=== PATIENT | male | born 1955 | race Caucasian/White ===

== ENCOUNTER 2022-10-28 15:21 | Observation (INO) | payer MEDICARE, SELFPAY ==
[2022-10-28] VITALS (23 sets, daily range): BP systolic 101–146; BP diastolic 62–90; PULSE 78–130; RESP 18–32; TEMP 36.8; O2SAT 94–98
--- NOTE | ~2022-10-28 | US_ITS ---
EXAMINATION: US renal BI DATE: 10/30/2022 17:29 INDICATION: KAITLIN TECHNIQUE: Multiple grayscale and Doppler ultrasound images of the kidneys were obtained. COMPARISON: None. FINDINGS: The right kidney measures 12.7 x 5.6 x 6.6 cm. The left kidney measures 12.5 x 6.0 x 7.2 cm. The kidn eys demonstrate normal parenchymal echogenicity. There is no hydronephrosis. The bladder is poorly vi sualized, but grossly normal. A left ureteral jet is present. IMPRESSION: Unremarkable renal sonogram findings. Reviewed, dictated and finalized at location K. T PRESSER
--- NOTE | ~2022-10-28 | XR_ITS ---
EXAMINATION: XR chest 2V DATE: 10/28/2022 16:10 INDICATION: Shortness of breath TECHNIQUE: Shortness of breath COMPARISON: 03/03/2018 FINDINGS: There is a mild diffuse interstitial pattern. There are minimal airspace opacities of the l kurt bases. No pleural effusion or pneumothorax. The cardiomediastinal silhouette is normal. There is severe thoracic spondylosis. IMPRESSION: 1. Mild pulmonary edema. 2. Minimal airspace opacities of the lung bases, consistent with atelectasis versus pneumonia. Reviewed, dictated and finalized at location A. EMIC ADVISING DIRECTOR IMPRESSION: 1. Mild pulmonary edema. 2. Minimal airspace opacities of the lung bases, consistent with atelectasis ve rsus pneumonia.
--- NOTE | 2022-10-28 15:23 | ECG_ITS ---
Measurements Intervals [place] Rate: 121 P: HI: 0 QRS: -54 QRSD: 82 T: 54 QT: 284 QTc: 404 Interpretive Statements ATRIAL FLUTTER/TACHYCARDIA WITH RAPID VENTRICULAR RESPONSE LEFT ANTERIOR FASCICULAR BLOCK [QRS AXIS <= -45, QR IN I, RS IN II] NONSPECIFIC T-WAVE ABNORMALITY NO PREVIOUS ECG AVAILABLE FOR COMPARISON Electronically Signed On 10-29-2022 16:16:25 ETCHER APPRENTICE PHOTOENGRAVING by Paulette Fletcher M.D.
[2022-10-28 15:49] LABS: Basophils Absolute Auto 0.1 K/mm3 (0.0-0.1); Basophils Percent Auto 0.6 % (0.2-1.2); Eosinophils Absolute Auto 0.2 K/mm3 (0-0.3); Eosinophils Percent Auto 1.6 % (0-4.4); Hematocrit 45.1 % (42.0-52.0); Hemoglobin 15.1 g/dL (14.0-18.0); Immature Granulocyte Absolute 0.05 K/mm3 (0.00-0.031); Immature Granulocyte Percent A 0.4 % (0-0.5); Lymphocytes Absolute Auto 1.93 K/mm3 (0.9-3.2); Lymphocytes Percent Auto 16.4 % (18.3-44.2); Mean Corpuscular HGB Conc 33.5 g/dl (32-36); Mean Corpuscular Hemoglobin 31.8 pg (26-34); Mean Corpuscular Volume 94.9 fl (80-100); Monocytes Percent Auto 8.2 % (2.6-8.5); Neutrophils Absolute Auto 8.6 K/mm3 (1.3-6.7); Neutrophils Percent Auto 72.8 % (45.5-73.1); Platelet Count Result 214 k/mm3 (150-375); Red Blood Count 4.75 M/mm3 (4.6-6.20); Red Cell Distribution Width 13.5 % (11.5-14.5); White Blood Count 11.8 K/mm3 (4.5-10.0)
[2022-10-28 16:03] LABS: Alanine Aminotransferase 30 U/L (6-50); Albumin Level 4.5 g/dL (3.5-5.1); Alkaline Phosphatase 64 U/L (38-126); Anion Gap 9 mmol/L (8-16); Aspartate Amino Transferase 28 U/L (17-59); Bilirubin,Total 1.1 mg/dL (0.2-1.3); Blood Urea Nitrogen 23 mg/dL (9-20); Carbon Dioxide 22 mmol/L (22-30); Chloride 100 mmol/L (98-107); Estimated CRCL calculation 108 ml/min; Estimated Glomerular Filt Rate > 60; Glucose 146 mg/dL (65-110); Lipase 108 U/L (23-300); Potassium 4.2 mmol/L (3.4-5.0); Sodium 131 mmol/L (137-145)
[2022-10-28 16:05] LABS: INR 1.2
[2022-10-28 16:06] LABS: Partial Thromboplastin Time 33.4 SECONDS (22.3-36.8)
[2022-10-28 16:13] LABS: Troponin I 0.013 ng/mL (0.000-0.034)
[2022-10-28 16:30] LABS: NT Pro B Type Natriuretic Pept 758 pg/mL (5-100)
--- NOTE | 2022-10-28 19:50 | ED.GENADULT ---
HPI - General Adult General Chief complaint: Shortness of Breath/Dyspnea Stated complaint: SOB,DIAPHORETIC, ?A FIB Time Seen by Provider: 10/28/22 19:35 History of Present Illness HPI narrative: This is a 66-year-old male history of AFib a flutter presenting ED chief complaint of not feeling well. Patient says he woke up this morning and felt more short of breath, w/ palpitations and slightly diaphoretic. He went about his day as normal but has not improved. The patient denies chest pain. He denies any symptoms in the days leading up to this event, No fever, chills, nausea vomiting or diarrhea. Has taken all his medications as directed. He denies lower extremity edema outside of his normal chronic swelling. Patient's academic success coordinator is Dr. Dunaway. Related Data Home Medications Medication Instructions Recorded Confirmed carvedilol 25 mg tablet mg 10/28/22 furosemide 20 mg tablet mg 10/28/22 lisinopril 10 mg tablet mg 10/28/22 metformin 500 mg tablet mg 10/28/22 pravastatin 20 mg tablet mg 10/28/22 rivaroxaban 20 mg tablet (Xarelto) mg 10/28/22 spironolactone 25 mg tablet mg 10/28/22 Allergies Allergy/AdvReac Type Severity Reaction Status Date / Time No Known Allergies Allergy Unknown Unverified 12/31/16 17:51 Review of Systems Review of Systems: CONSTITUTIONAL: Denies night sweats. EYES: No eye pain ENT: Denies rhinorrhea CARDIOVASCULAR: Denies palpitations RESPIRATORY: Denies hemoptysis GASTROINTESTINAL: Denies hematemesis GENITOURINARY: Denies hematuria. SKIN: Denies rash MUSCULOSKELETAL: Denies myalgia. NEUROLOGIC: Denies weakness. PSYCHIATRIC: Denies delusions [facility] Past Medical History Medical History (Updated 10/28/22 @ 23:10 by Richard Gonzales MD) Atrial fibrillation Body mass index (BMI) of 50-59.9 in adult (12/01/17) Chronic pain of both knees Diabetes Hypertension Family History Family History (Updated 10/21/17 @ 08:21 by DOCTOR UNKNOWN) Other Family history of arthritis Social History Social History Smoking status: Former smoker Alcohol intake: never Exam Narrative: APPEARANCE: patient appears older than his stated age Head: atraumatic. EYES: EOMI, NOSE: Atraumatic NECK: Trachea midline RESPIRATORY: Clear to auscultation, mildly increased respiratory rate CARDIOVASCULAR: tachycardic, irregular, dermatoliposclerosis of the LE ABDOMINAL: Non-distended obese, nontender MUSCULOSKELETAl: No obvious deformities NEURO: Alert. Moving 4/4 extremities SKIN:: Warm, dry. Normal color PSYCHIATRIC: Normal affect Course Vital Signs Vital signs: Vital Signs Temperature 98.2 F 10/28/22 15:38 Pulse Rate 121 H 10/28/22 15:38 Respiratory Rate 20 10/28/22 15:38 Blood Pressure 146/81 H 10/28/22 15:38 Pulse Oximetry 95 10/28/22 15:38 Oxygen Delivery Room Air 10/28/22 15:38 Temperature 98.2 F 10/28/22 15:38 Pulse Rate 125 H 10/28/22 22:25 Respiratory Rate 18 10/28/22 21:17 Blood Pressure 113/80 10/28/22 22:25 Pulse Oximetry 97 10/28/22 21:18 Oxygen Delivery Room Air 10/28/22 20:23 Medical Decision Making [facility] Narrative Medical decision making narrative: This 66-year-old male presents with palpitations, tachycardia, and shortness of breath. EKG interpretation: Rhythm atrial flutter, Rate 121, [place] -[normal], CO -NA, QRS [narrow], QTC [normal], T waves -[negative for concerning inversions], ST Segments - [Negative for concerning elevations] Final interpretations: atrial flutter laboratory studies were significant for a mildly elevated white blood cell count of 11.8 which is of unknown etiology/significance. Metabolic panel is within normal limits. Troponin was within acceptable limits. His BNP is slightly elevated at 758. Chest x-ray showed mild pulmonary edema and atelectasis versus pneumonia. Given the patients presentation I feel atelectasi
[2022-10-28] MEDS: dilTIAZem HCl INJ 25 MG/5 ML VIAL 15 MG IV PUSH ×2 (20:26→21:13)
[2022-10-28 21:23] LABS: Troponin I 0.022 ng/mL (0.000-0.034)
[2022-10-28 21:33] LABS: Influenza A QL RT-PCR Negative (Negative); Influenza B QL RT-PCR Negative (Negative); SARS-CoV-2 RNA PCR Negative
[2022-10-28] MEDS: dilTIAZem 100 MG/100 ML 100 MG/100 ML BAG IV CONT (22:25)
[2022-10-28 22:54] LABS: Magnesium 1.8 mg/dL (1.6-2.3)
[2022-10-28 23:55] LABS: Troponin I 0.023 ng/mL (0.000-0.034)
[2022-10-29] VITALS (40 sets, daily range): BP systolic 89–124; BP diastolic 49–88; PULSE 69–130; RESP 12–27; TEMP 36.2–37; O2SAT 95–100
--- NOTE | 2022-10-29 03:05 | ADMGEN ---
This patient, Joe Henriquez, was admitted to IMU Room 205-02. Patient/family oriented to hospital policies and general routines including ID bracelet, bed and alarms, visiting hours, pain management, procedures, bathroom and other care routines, personal items, smoking policy, room service/diet, and visiting hours. Information on how to activate the Rapid Response Team has been discussed. Patient/Family are encouraged to report perceived risks to care and to ask questions if they do not understand what they are told or what they should do.
--- NOTE | 2022-10-29 03:23 | PC.NURSE ---
Patient did not receive Coreg 25mg, give dose now, also give dose of Xaralto 20mg as patient did not receive home dose.
[2022-10-29] MEDS: RIVAROXABAN 20 MG TABLET PO ×2 (03:48→17:39)
[2022-10-29] MEDS: dilTIAZem 100 MG/100 ML 100 MG/100 ML BAG 15 MG IV CONT (03:48)
[2022-10-29] MEDS: carvediloL 25 MG TABLET PO ×3 (03:48→21:23)
--- NOTE | 2022-10-29 04:52 | PM.IMHP ---
H&P: HPI History of Present Illness Date/Time: 10/29/22 04:52 Chief Complaint: ?Did not feel good? Narrative: 66-year-old male with past medical history of nonischemic cardiomyopathy, morbid obesity, paroxysmal atrial fibrillation/flutter, type 2 diabetes mellitus and hyperlipidemia who presented to the ER with just not feeling well. The patient reported that his symptoms started around 03:00 on the 12th when he got up to go to the bathroom. He just knew something was wrong. He had developed a sudden onset of shortness of breath and sweating which was similar to when he is went into AFib before. He has required at least 2 other occurrences of for synchronized cardioversion in 2012 and 2016. He sees Dr. Dunaway as outpatient approximately every 6 months. He has morbid obesity and denies history of obstructive sleep apnea although I find this difficult to correlate given the patient is crowded posterior oropharynx. He he denies daytime sleepiness or somnolence. He denies having chest pain. He denies orthopnea or paroxysmal nocturnal dyspnea. He has chronic lower extremity swelling and does not think is swelling is changed from baseline but he does have 2+ pitting edema at the time of my evaluation. He denies any history of BPH or urinary symptoms. He denies any hematochezia or melena. He has been compliant with his home meds including his Coreg and Xarelto but did not receive his evening Coreg. When I had ER provider order the patient's evening Coreg the ER nurse did not administer the Coreg. After the patient received his Coreg after arriving to the IMU the patient's heart rate improved significantly and we were able to wean the patient's Cardizem from 15 mg down to 5 mg. The patient does not really know if he snores as he lives alone and does not have family around. He states he does not have a history of obstructive sleep apnea but I did find in the old computer system where the patient was mention to have sleep apnea. The patient was not using CPAP at the time of that hospitalization in 2016. Review of Systems Review of Systems: 12 systems were reviewed with pertinent positives and negatives per HPI. Except as documented in the HPI, all other systems were reviewed and are negative. [facility] Past Medical History Medical History (Updated 10/29/22 @ 10:23 by Mary Lemos DO) Atrial fibrillation With history of synchronized cardioversion x2 Body mass index (BMI) of 50-59.9 in adult (12/01/17) Chronic pain of both knees Chronic venous stasis dermatitis Diabetes Diabetic peripheral neuropathy Hyperlipidemia Hypertension Nonischemic cardiomyopathy Surgical History Surgical History (Updated 10/29/22 @ 10:14 by Mary Lemos DO) History of bilateral hip replacements Family History Family History Mother Healthy adult 90 years old Father , Age 86 No problems noted. Sibling , 68 Cancer Social History Social History Social History: Patient is single the never been . He does not have any children. The patient is a former smoker he smoked 1 pack of cigarettes per day for about 10 years but quit smoking in the 1980s. He denies significant alcohol use. 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 Code status: Full code Surrogate decision maker: Gisel Remy (sister) Smoking status: Former smoker Alcohol intake: never Substance use: never Lack of Transportation: No Lack of Food: Never True Current Housing: I Have Housing Concerned About Future Housing: No Difficulty Paying Gas/Electric Bills: No Difficulty Paying for Meds: No Currently Unemployed: No Education: Decline to Answer Difficulty w/ Childcare or Family Care: No Spiritual care concerns: No Meds Home Medications and Allergies Home Medications Medication In
[2022-10-29 08:15] LABS: Glucose Point of Care 179 mg/dl (65-105)
[2022-10-29] MEDS: PRAVASTATIN SODIUM 20 MG TABLET PO (09:11)
[2022-10-29] MEDS: SPIRONOLACTONE 25 MG TABLET PO (09:11)
[2022-10-29] MEDS: FUROSEMIDE 20 MG TABLET PO (09:11)
[2022-10-29] MEDS: metFORMIN HCL 500 MG TABLET 1000 MG PO ×2 (09:11→17:39)
[2022-10-29] MEDS: FUROSEMIDE INJ 40 MG/4 ML VIAL IV PUSH (09:23)
[2022-10-29 12:12] LABS: Glucose Point of Care 199 mg/dl (65-105)
[2022-10-29] MEDS: lisinopriL 10 MG TABLET PO (15:06)
--- NOTE | 2022-10-29 16:12 | PM.CNCAR ---
Assessment and Plan Assessment and plan (1) Atypical atrial flutter: Code(s): I48.4 - Atypical atrial flutter Status: Acute Assessment and Plan: Patient with a history of AFib flutter, history of 2 cardioversions last 1 being around 2018, presents with recurrent atypical atrial flutter RVR. Symptomatic, with some mild CHF as well. Heart rate is not well controlled on Cardizem 5 milligrams/hour plus his carvedilol drip. Previously did well with amiodarone loading and cardioversion which I have recommended as an option. Other options could be rate control or referral for ablation. Patient desires to proceed with amiodarone and cardioversion which worked well for him in the past. Change IV cardizem to IV amiodarone Scheduled for tomorrow with anesthesia (due to his morbid obesity and my concern about sleep apnea and airway etc.). Possibly discharge tmr evening if all goes well. (2) Acute on chronic diastolic CHF (congestive heart failure): Code(s): I50.33 - Acute on chronic diastolic (congestive) heart failure Status: Acute Assessment and Plan: Mild acute diastolic heart failure due to AFib RVR. H/O cardiomyopathy in the past w/ normalization of LV fxn after maintaining NSR. Also has some chest tightness with RVR, but no ischemic EKG changes or significant troponin rise. Can be evaluated as an outpatient if this persists. Diuresed 1500 cc's after 1 dose of lasix IV. 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 Patient states he has not missed any doses. Thus it does not appear that he will need aTEE for his cardioversion (4) Body mass index (BMI) of 50-59.9 in adult: Onset Date: 12/01/17 Code(s): Z68.43 - Body mass index [BMI] 50.0-59.9, adult Status: Acute Assessment and Plan: Morbidly obese, may have sleep apnea. Apnea Link History of Present Illness History of Present Illness Consult date/time: 10/29/22 16:12 Reason For Visit: A-flutter Narrative: Joe Henriquez is a 66 y.o. male whom we were asked to see at the request of Dr. Roy for my advice and opinion regarding the patient's recurrent AFib RVR, in consultation. The patient is followed by Dr. Dunaway for his history of AFib and flutter. He also was found to have a nonischemic cardiomyopathy in 2012, probably tachycardia mediated cardiomyopathy. S/p first cardioversion. He had recurrent a fib in 2018, and was loaded with amiodarone and cardioverted. Maintaining sinus rhythm and with improvement of his LV function his amiodarone was discontinued several months later. He has done well on his recent office visits. The pt presented noted shortness of breath, MACARIO, palpitations and diaphoresis, when he woke up 10/28/2020 and presented to [facility]. He was found to have recurrent AFib RVR, heart rate running in the 120s. He was started on a Cardizem drip. He was thought to have some CHF and given a dose of IV Lasix. He continues to have AFib, heart rate 100-120's, still w/ SOB at times and chest tightness when he has RVR. He has not missed any doses of Xarelto. Accompanied by sister, Gisel. Pt does not know if he has any JOSÉ LUIS. Review of Systems Constitutional: Constitutional: Denies fever(s) Eyes: Comments: wears glasses ENT: Comments: No dysphagia Cardiovascular: Cardiovascular: Reports chest pain, Denies pedal edema, Denies lightheadedness, Reports palpitations and Reports dyspnea Comments: Some chest discomfort and tightness when his HR is high. Respiratory: Respiratory: Denies chest congestion, Reports dyspnea and Reports dyspnea on exertion Comments: No known snoring of or gasping, never been checked for JOSÉ LUIS. Gastrointestinal: Gastrointestinal: Denies abdominal pain and Denies hematochezia Genitourinary: Genito
--- NOTE | 2022-10-29 16:22 | PM.IMPN ---
Progress Note: A&P Assessment and Plan (1) Atrial fibrillation and flutter: Code(s): I48.91 - Unspecified atrial fibrillation; I48.92 - Unspecified atrial flutter Status: Acute Assessment and Plan: The patient developed malaise and noted his HR was elevated and found to have AFib/Flutter with rapid ventricular response. He is compliant with his Xarelto. [id number] 4. The patient was started on a Cardizem drip currently at 5 mg/hr. Home Coreg dose resumed. The patient has a hx of cardioversion with Amiodarone which worked well. Amiodarone was stopped about a year later. Cardiology to see for possible CV. Check TSH. Continue home Xarelto. (2) Nonischemic cardiomyopathy: Code(s): I42.8 - Other cardiomyopathies Status: Acute Assessment and Plan: Hx of NICMP. No Echo here and will defer to Cardiology to order this. Continue Coreg, Aldactone and lisinopril. (3) Diabetes: Code(s): E11.9 - Type 2 diabetes mellitus without complications Status: Acute Assessment and Plan: The patient's blood glucose was reviewed on 10/29 Glucose remains reasonably well controlled. Continue AccuCheks covering with sliding scale. Hypoglycemia protocol available as needed. Continue current medications. Check A1c (4) Hypertension: Code(s): I10 - Essential (primary) hypertension Status: Acute Assessment and Plan: Patient's blood pressure was reviewed on 10/29 Blood pressure remains well controlled. Will continue current medications. (5) Obesity: Code(s): E66.9 - Obesity, unspecified Status: Acute Assessment and Plan: BMI 50. This can contribute to his other medical problems. May also make CV more complex. Subjective Date/time seen: 10/29/22 16:22 Interval history: 66yo male with hx of AFib, DM and HTN here for malaise and found to be back in AFib. Symptoms are better. HR 120 range but he feels okay. He does have SOB with exertion when he is in AFib. No CP or SOB at rest. No n/v. Exam Narrative: AF 98.0 112/67 126 20 98% ra Gen - NARD sitting up at the side of the bed Chest - CTA bilaterally, nml RR CV - irregular and tachycardic. Tele showing AFlutter with variable conduction and rate <120 Abd - Soft, obese, NT, +BS Ext - trace pedal edema Neuro - Alert and oriented. Nonfocal exam. Psych - Nml mood and affect Skin - Warm and dry. chronic venous stasis skin changes bilateral LE Objective Data Vital Signs Vital Signs: Vital Signs - 24 hr 10/28/22 20:23 10/28/22 20:24 10/28/22 20:23 Temperature Pulse Rate 123 H 123 H 124 H Respiratory Rate 22 H 21 H 24 H Blood Pressure 123/67 Pulse Oximetry 97 98 97 Oxygen Delivery Room Air 10/28/22 20:30 10/28/22 20:31 10/28/22 20:45 Temperature Pulse Rate 123 H 117 H 110 H Respiratory Rate 21 H 24 H Blood Pressure 135/90 Pulse Oximetry 97 94 97 Oxygen Delivery 10/28/22 20:47 10/28/22 21:00 10/28/22 21:02 Temperature Pulse Rate 118 H 116 H 109 H Respiratory Rate 28 H Blood Pressure 121/76 101/71 Pulse Oximetry 98 97 97 Oxygen Delivery 10/28/22 21:17 10/28/22 21:03 10/28/22 21:15 Temperature Pulse Rate 118 H 121 H Respiratory Rate 18 Blood Pressure 108/76 Pulse Oximetry 97 97 97 Oxygen Delivery 10/28/22 21:16 10/28/22 21:27 10/28/22 21:17 Temperature Pulse Rate 108 H 79 78 Respiratory Rate Blood Pressure 108/76 Pulse Oximetry 97 95 Oxygen Delivery 10/28/22 21:18 10/28/22 22:25 10/28/22 23:07 Temperature Pulse Rate 125 H 126 H Respiratory Rate Blood Pressure 113/80 104/73 Pulse Oximetry 97 Oxygen Delivery 10/28/22 23:37 10/29/22 02:59 10/28/22 23:18 Temperature Pulse Rate 127 H 113 H 126 H Respiratory Rate 20 22 H Blood Pressure 115/67 113/78 Pulse Oximetry 100 96 Oxygen Delivery 10/28/22 23:30 10/28/22 23:31 10/28/22 23:45 Temperature Pulse Rate
[2022-10-29 16:41] LABS: Glucose Point of Care 136 mg/dl (65-105)
[2022-10-29] MEDS: AMIODARONE 150 MG/D5W 100 ML 150 MG/100 ML BAG 600 MG IV CONT (17:35)
[2022-10-29] MEDS: AMIODARONE 360 MG/D5W 200 ML 360 MG/200 ML BAG 33.33 MG IV CONT (17:47)
[2022-10-29 20:10] LABS: Glucose Point of Care 143 mg/dl (65-105)
[2022-10-29] MEDS: AMIODARONE 360 MG/D5W 200 ML 360 MG/200 ML BAG 16.67 MG IV CONT (23:35)
[2022-10-30] VITALS (21 sets, daily range): BP systolic 96–123; BP diastolic 49–84; PULSE 68–112; RESP 14–20; TEMP 36.2–36.6; O2SAT 95–98
[2022-10-30 04:32] LABS: Basophils Absolute Auto 0.1 K/mm3 (0.0-0.1); Basophils Percent Auto 0.5 % (0.2-1.2); Eosinophils Absolute Auto 0.2 K/mm3 (0-0.3); Eosinophils Percent Auto 1.2 % (0-4.4); Hematocrit 40.3 % (42.0-52.0); Hemoglobin 13.5 g/dL (14.0-18.0); Immature Granulocyte Absolute 0.07 K/mm3 (0.00-0.031); Immature Granulocyte Percent A 0.6 % (0-0.5); Lymphocytes Absolute Auto 2.39 K/mm3 (0.9-3.2); Lymphocytes Percent Auto 19.3 % (18.3-44.2); Mean Corpuscular HGB Conc 33.5 g/dl (32-36); Mean Corpuscular Hemoglobin 31.4 pg (26-34); Mean Corpuscular Volume 93.7 fl (80-100); Mean Platelet Volume 11.3 fl (7.4-10.4); Monocytes Percent Auto 8.2 % (2.6-8.5); Neutrophils Absolute Auto 8.7 K/mm3 (1.3-6.7); Neutrophils Percent Auto 70.2 % (45.5-73.1); Platelet Count Result 205 k/mm3 (150-375); Red Cell Distribution Width 13.7 % (11.5-14.5); White Blood Count 12.4 K/mm3 (4.5-10.0)
[2022-10-30 04:57] LABS: Anion Gap 8 mmol/L (8-16); Blood Urea Nitrogen 48 mg/dL (9-20); Calcium 8.4 mg/dL (8.4-10.2); Carbon Dioxide 23 mmol/L (22-30); Chloride 97 mmol/L (98-107); Estimated CRCL calculation 61 ml/min; Estimated Glomerular Filt Rate 38; Glucose 144 mg/dL (65-110); Magnesium 1.9 mg/dL (1.6-2.3); Potassium 4.5 mmol/L (3.4-5.0); Sodium 128 mmol/L (137-145)
--- NOTE | 2022-10-30 07:21 | ECG_ITS ---
Measurements Intervals [place] Rate: 111 P: TN: 0 QRS: -50 QRSD: 104 T: -7 QT: 321 QTc: 437 Interpretive Statements ATRIAL FLUTTER/TACHYCARDIA WITH RAPID VENTRICULAR RESPONSE INFERIOR MYOCARDIAL INFARCTION , OF INDETERMINATE AGE [40+ ms Q WAVE AND/OR ST/T ABNORMALITY IN II/aVF] COMPARED TO ECG 10/28/2022 15:34:20 NO SIGNIFICANT CHANGES Electronically Signed On 10-30-2022 13:26:43 CUSTOMS COMPLIANCE SPECIALIST by Paulette LAGUNA
--- NOTE | 2022-10-30 07:21 | ECG_ITS ---
Rate 75 NM 192 QRSd 112 QT 372 QTc 418 --[place]-- P 53 QRS 102 T 37 SINUS RHYTHM MARKED RIGHT AXIS DEVIATION [QRS AXIS > 100] MODERATE INTRAVENTRICULAR CONDUCTION DELAY [110+ ms QRS DURATION] Electronically Signed On 10-30-2022 15:56:55 PRIMARY SCHOOL PRINCIPAL by Paulette Fletcher M.D. COMPARED TO ECG 10/30/2022 12:28:42 SINUS RHYTHM NOW PRESENT INTRAVENTRICULAR CONDUCTION DELAY NOW PRESENT MTDD
[2022-10-30 07:43] LABS: Glucose Point of Care 175 mg/dl (65-105)
--- NOTE | 2022-10-30 08:00 | ECHO_ITS ---
Patient Info Name: Joe Henriquez Age: 66 years : 1955 Gender: Male Ht: 74 in Wt: 392 lbs BSA: 3.14 m2 HR: 105 bpm BP: 102 / 49 mmHg Heart Rhythm: Atrial Fibrillation Technical Quality: Fair Exam Date: 10/30/2022 9:08 AM Exam Location: [facility] Patient Status: Outpatient Admit Date: 10/28/2022 Staff Ordering Physician: Sheila Awad MD [employer] Machine Helper: Kate Bojorquez RDCS Attending Provider: Mary Lemos DO Referring Physician: Ritesh FALL; Exam Type: CA echo dop color flow w con Study Info Indications - new afib Complete two-dimensional, color flow and Doppler transthoracic echocardiogram is performed with contrast to opacify the left ventricle and to improve the deliniation of the left ventricle endocardial borders. Contrast/Agitated Saline Contrast/Ag. Saline: Definity Amount: 3.00 ml Administered By: Kate Bojorquez RDCS Existing IV Access: Yes IV Access Condition: patent with no signs of infiltration Summary 1. Left ventricular systolic function is normal, estimated at 55-60%. 2. There is mildly increased left ventricular wall thickness. 3. The left ventricular diastolic function is grade I diastolic dysfunction. 4. Right ventricular chamber dimension is mildly enlarged. 5. Right ventricular systolic function is normal. 6. There is mild aortic valve calcification. 7. The aortic valve is not well visualized. 8. There is trace tricuspid valve regurgitation. Left Ventricle Left ventricular chamber dimension is normal. Left ventricular systolic function is normal, estimated at 55-60%. There is mildly increased left ventricular wall thickness. The left ventricular diastolic function is grade I diastolic dysfunction. Right Ventricle Right ventricular chamber dimension is mildly enlarged. Right ventricular systolic function is normal. Left Atria Left atrial chamber dimension is normal. Right Atria Right atrial chamber dimension is normal. Aortic Valve The aortic valve is not well visualized. There is no aortic valve stenosis. There is no aortic valve regurgitation. There is mild aortic valve calcification. Pulmonic Valve The pulmonic valve is not well visualized. Mitral Valve The mitral valve has normal leaflets. There is no mitral valve stenosis. There is no mitral valve regurgitation. Tricuspid Valve The tricuspid valve leaflets are normal. There is no significant tricuspid valve stenosis. There is trace tricuspid valve regurgitation. Pericardium/Pleural There is no pericardial effusion. Aorta The aortic root size at the sinus of Valsalva is normal. Left Ventricular Outflow Tract Name Value Normal LVOT 2D LVOT Diameter 2.00 cm LVOT Doppler LVOT Peak Gradient 2 mmHg LVOT Mean Gradient 1 mmHg LVOT VTI 16.67 cm LVOT VTI/AV VTI Ratio 0.51 LVOT Stroke Volume 52.56 ml LVOT CO 1.78 l/min
[2022-10-30] MEDS: PERFLUTREN LIPID MICROSPHERES 1.5 ML VIAL DILUTED TO 10 ML TOTAL VOLUME IV PUSH (09:20)
[2022-10-30] MEDS: PRAVASTATIN SODIUM 20 MG TABLET PO (09:44)
[2022-10-30] MEDS: carvediloL 12.5 MG TABLET PO ×2 (09:45→21:38)
--- NOTE | 2022-10-30 10:16 | IVDEFINITY ---
Prior to administration of IV Definity the patient was educated on the risks and benefits of the imaging enhancing agent including potential adverse side effects. The patient verbalized understanding. Allergies were verified. No exclusion criteria were identified and at least one of the following inclusion criteria were met: 1) physician request, 2) patient technically difficult to image (per the [place] [employer]ocardi[employer] guidelines of two or more segments not discernable within the apical view), or 3) questionable left ventricular function. ?
[2022-10-30] MEDS: AMIODARONE 360 MG/D5W 200 ML 360 MG/200 ML BAG 16.67 MG IV CONT (10:48)
[2022-10-30 12:22] LABS: Glucose Point of Care 166 mg/dl (65-105)
--- NOTE | 2022-10-30 12:29 | PM.IMPN ---
Progress Note: A&P Assessment and Plan (1) Atrial fibrillation and flutter: Code(s): I48.91 - Unspecified atrial fibrillation; I48.92 - Unspecified atrial flutter Status: Acute Assessment and Plan: The patient developed malaise and noted his HR was elevated and found to have AFib/Flutter with rapid ventricular response. He is compliant with his Xarelto. [id number] 4. TSH normal. The patient was started on a Cardizem dripand home Coreg dose resumed. The patient has a hx of cardioversion with Amiodarone which worked well in the past. Amiodarone was stopped about a year later. Cardiology following with plans for CV. Continue home Xarelto. (2) KAITLIN (acute kidney injury): Code(s): N17.9 - Acute kidney failure, unspecified Status: Acute Assessment and Plan: BUN 48 and creatinine 1.8 today. Could be related to transient hypotension overnight. Could also be related to his atrial flutter with RVR. Will hold his Lasix, metformin, spironolactone and lisinopril at this time. Decrease Coreg dose. Monitor renal function. Check renal ultrasound and urine studies (3) Nonischemic cardiomyopathy: Code(s): I42.8 - Other cardiomyopathies Status: Acute Assessment and Plan: Hx of NICMP. Echo pending. Continue Coreg. Aldactone and lisinopril on hold. (4) Diabetes: Code(s): E11.9 - Type 2 diabetes mellitus without complications Status: Acute Assessment and Plan: A1c 8.0. The patient's blood glucose was reviewed on 10/30 Glucose remains reasonably well controlled. Continue AccuCheks covering with sliding scale. Hypoglycemia protocol available as needed. Continue current medications. (5) Hypertension: Code(s): I10 - Essential (primary) hypertension Status: Acute Assessment and Plan: Patient's blood pressure was reviewed on 10/30 Blood pressure soft. As above (6) Obesity: Code(s): E66.9 - Obesity, unspecified Status: Acute Assessment and Plan: BMI 50. This can contribute to his other medical problems. Educated about the benefits of leading a healthy lifestyle. Subjective Date/time seen: 10/30/22 12:29 Interval history: 66yo male with hx of AFib, DM and HTN here for malaise and found to be back in AFib. No problems overnight. Patient did sleep poorly. No complaints of chest pain or shortness of breath Exam Narrative: AF 97.9 106/60 112 16 97% ra Gen - NARD Chest - CTA bilaterally, nml RR CV - irregular and tachycardic. Tele showing AFlutter with variable conduction Abd - Soft, obese, NT, +BS Ext - no pedal edema Neuro - Alert and oriented. Nonfocal exam. Psych - Nml mood and affect Skin - Warm and dry. diffuse but worse in the LE with raised dried [place] scaly lesion Objective Data Vital Signs Vital Signs: Vital Signs - 24 hr 10/29/22 14:00 10/29/22 14:00 10/29/22 16:00 Temperature 98.2 F Pulse Rate 126 H 126 H 76 Respiratory Rate 20 18 Blood Pressure 112/67 117/55 L Pulse Oximetry 97 Oxygen Delivery 10/29/22 17:35 10/29/22 16:30 10/29/22 16:30 Temperature Pulse Rate 121 H 121 H 121 H Respiratory Rate 18 Blood Pressure 108/58 L Pulse Oximetry 97 Oxygen Delivery Room Air 10/29/22 17:47 10/29/22 18:00 10/29/22 20:00 Temperature 97.3 F L Pulse Rate 106 H 117 H 96 Respiratory Rate 18 Blood Pressure 98/63 L 107/56 L Pulse Oximetry 97 Oxygen Delivery 10/29/22 21:23 10/29/22 20:00 10/29/22 20:00 Temperature Pulse Rate 110 H 101 H 104 H Respiratory Rate Blood Pressure Pulse Oximetry Oxygen Delivery Room Air 10/29/22 23:07 10/29/22 23:35 10/29/22 23:37 Temperature 97.1 F L Pulse Rate 110 H 91 Respiratory Rate 18 Blood Pressure 89/52 L Pulse Oximetry 97 96 Oxygen Delivery Room Air 10/30/22 00:00 10/30/22 00:00 10/30/22 01:31 Temperature Pulse Rate 102 H 102 H 68 Respiratory Rate
[2022-10-30 13:31] LABS: Add Urine Microscopic? NO; Appearance Urine Clear (Clear); Bilirubin Urine Negative (Negative); Blood Urine Negative (Negative); Color Urine Yellow (Yellow); Glucose Urine UA Negative (Negative); Ketones Urine Negative (Negative); Leukocyte Esterase Ur Negative LEU/UL (NEGATIVE); Nitrate Urine Negative (Negative); Protein Urine Negative (Negative); Specific Grav Ur >= 1.030 (1.001-1.035); Urobilinogen Urine 0.2 mg/dL (<2.0); pH Urine 5.5 (5.0-9.0)
[2022-10-30 13:35] LABS: Sodium Urine Random 53 meq/L
--- NOTE | 2022-10-30 13:37 | WPDHPUPDATE1 ---
History and Physical Update Update Date/Time: 10/30/22 13:37 Patient with a history of AFib in cardioversion several years ago readmitted with recurrent AFib RVR. Chronically anticoagulated with Xarelto. Heart rate has been reasonably controlled with an amiodarone drip. He is about to undergo an elective electrical cardioversion with anesthesia assist. History and Physical has been reviewed, including an updated exam of the patient. There are NO changes in the patient's condition. Risks, benefits, and alternatives have been discussed and questions answered. Patient agrees to proceed with procedure.
[2022-10-30 13:45] LABS: Total Protein Urine Random < 5 mg/dL; Ur Ttl Prot Creatinine Ratio < 0.03 mg/mg (0-0.20)
--- NOTE | 2022-10-30 13:53 | WPDANESEPPF ---
Anes - Initial Pre Proc Eval Procedure: Operation Date: 10/30/22 14:00 Proposed Procedures p Electrical Cardioversion - Sheila Awad MD Date/Time: 10/30/22 13:53 Surgeon: Mary Lemos DO Pre Op Diagnosis: A-flutter Patient Data Age: 66 Gender: M Height: 1.88 m Weight: 177.7 kg Last Vital Signs Temp 97.9 F 10/30/22 12:00 Pulse 110 H 10/30/22 12:30 Resp 16 10/30/22 12:00 BP 106/60 10/30/22 12:00 Pulse Ox 97 10/30/22 12:00 O2 Del Method Room Air 10/30/22 12:30 Allergies Allergy/AdvReac Type Severity Reaction Status Date / Time No Known Allergies Allergy Unknown Unverified 12/31/16 17:51 Home Medications Medication Instructions Recorded Confirmed Type carvedilol 25 mg tablet 25 mg PO BID 10/28/22 10/29/22 History furosemide 20 mg tablet 20 mg PO DAILY 10/28/22 10/29/22 History lisinopril 10 mg tablet 10 mg PO DAILY 10/28/22 10/29/22 History metformin 500 mg tablet 1,000 mg PO BID 10/28/22 10/29/22 History pravastatin 20 mg tablet 20 mg PO DAILY 10/28/22 10/29/22 History rivaroxaban 20 mg tablet (Xarelto) 20 mg PO HS 10/28/22 10/29/22 History spironolactone 25 mg tablet 25 mg PO EVERY OTHER DAY 10/28/22 10/29/22 History spironolactone 25 mg tablet 12.5 mg PO EVERY OTHER DAY 10/29/22 10/29/22 History Laboratory Tests 10/29/22 10/29/22 10/30/22 16:10 20:05 04:11 WBC 12.4 K/mm3 H K/mm3 (4.5-10.0) RBC 4.30 M/mm3 L M/mm3 (4.6-6.20) Hgb 13.5 g/dL L g/dL (14.0-18.0) Hct 40.3 % L % (42.0-52.0) MCV 93.7 fl fl (80-100) MCH 31.4 pg pg (26-34) MCHC 33.5 g/dl g/dl (32-36) RDW 13.7 % % (11.5-14.5) Plt Count 205 k/mm3 k/mm3 (150-375) MPV 11.3 fl H fl (7.4-10.4) Immature Gran % (Auto) 0.6 % H % (0-0.5) Neut % (Auto) 70.2 % % (45.5-73.1) Lymph % (Auto) 19.3 % % (18.3-44.2) [place] % (Auto) 8.2 % % (2.6-8.5) Eos % (Auto) 1.2 % % (0-4.4) Baso % (Auto) 0.5 % % (0.2-1.2) Lymph # (Auto) 2.39 K/mm3 K/mm3 (0.9-3.2) [place] # (Auto) 1.0 K/mm3 H K/mm3 (0.1-0.6) Eos # (Auto) 0.2 K/mm3 K/mm3 (0-0.3) Baso # (Auto) 0.1 K/mm3 K/mm3 (0.0-0.1) Abs Immat Gran (auto) 0.07 K/mm3 H K/mm3 (0.00-0.031) Absolute Neuts (auto) 8.7 K/mm3 H K/mm3 (1.3-6.7) Absolute Nucleated RBC 0.0 K/mm3 K/mm3 (0.0-0.012) Nucleated RBC % 0.0 % % (0.0-0.2) Sodium Potassium Chloride Carbon Dioxide Anion Gap BUN Creatinine Estim Creat Clear Calc Estimated GFR Glucose POC Capillary Glucose 136 mg/dl H mg/dl 143 mg/dl H mg/dl (65-105) (65-105) Hemoglobin A1c Calcium Magnesium TSH (Reflex) Urine Color Urine Appearance Urine pH Ur Specific [place] Urine Protein Urine Glucose (UA) Urine Ketones Ur Blood (Man) Urine Nitrate Urine Bilirubin Urine Urobilinogen Ur Leukocyte Esterase Urine Eosinophils U Random Total Protein Ur Random Sodium Urine Creatinine Protein/Creat Ratio 2 10/30/22 10/30/22 10/30/22 04:11 04:11 04:11 WBC RBC Hgb Hct MCV MCH MCHC RDW Plt Count MPV Immature Gran % (Auto) Neut % (Auto) Lymph % (Auto) [place] % (Auto) Eos % (Auto) Baso % (Auto) Lymph # (Auto) [place] # (Auto) Eos # (Auto) Baso # (Auto) Abs
--- NOTE | 2022-10-30 14:03 | PC.NURSE ---
1340- to cardiac quality assurance qa lab technician for cardioversion via bed accompanied by RN's
[2022-10-30 14:06] LABS: Eosinophil Urine None Seen % (None Seen)
--- NOTE | 2022-10-30 14:09 | PM.OP ---
Procedure Note - Brief Procedure Note - Brief Date of procedure: 10/30/22 Pre-op diagnosis: A-flutter Post-op diagnosis: Same Procedure performed: Cardioversion Description of procedure: Successful cardioversion Surgeon: Sheila Awad MD
--- NOTE | 2022-10-30 14:10 | P.PCNCVR_ITS ---
Cardioversion Cardioversion Date of procedure: 10/30/22 Procedure: Sedation with anesthesia Elective electrical cardioversion Pre-op diagnosis: Recurrent atrial fibrillation Post-op diagnosis: Other (Quaker of sinus rhythm) Indications: Symptomatic atrial fibrillation Description of procedure: Cardioversion: After informed consent and the above conscious sedation, the patient underwent elective electrical synchronized cardioversion with 300 joules of biphasic energy and converted to normal sinus rhythm. There were no complications. Sedation: See anesthesia report Conclusion: Successful elective electrical cardioversion to sinus rhythm Change IV amiodarone to p.o. Cont Xarelto Possible discharge tmr (monitor renal fxn overnight) with office follow-up in the near future
--- NOTE | 2022-10-30 16:07 | PC.NURSE ---
1445- pt returned to room post cardioversion- monitor SR 80's- VSS- no c/o pain
[2022-10-30 16:36] LABS: Glucose Point of Care 167 mg/dl (65-105)
[2022-10-30] MEDS: AMIODARONE HCL 200 MG TABLET 400 MG PO (17:13)
[2022-10-30] MEDS: EUCERIN CREAM 120 GM JAR 1 APPLIC TOPICAL (17:15)
[2022-10-30] MEDS: RIVAROXABAN 20 MG TABLET PO (17:15)
[2022-10-30 20:29] LABS: Glucose Point of Care 140 mg/dl (65-105)
[2022-10-31] VITALS (10 sets, daily range): BP systolic 102–122; BP diastolic 58–86; PULSE 65–81; RESP 14–18; TEMP 36.3–37.1; O2SAT 97–100
[2022-10-31 05:15] LABS: Basophils Percent Auto 0.4 % (0.2-1.2); Eosinophils Absolute Auto 0.2 K/mm3 (0-0.3); Eosinophils Percent Auto 1.5 % (0-4.4); Hematocrit 41.6 % (42.0-52.0); Hemoglobin 13.7 g/dL (14.0-18.0); Immature Granulocyte Absolute 0.05 K/mm3 (0.00-0.031); Immature Granulocyte Percent A 0.5 % (0-0.5); Lymphocytes Absolute Auto 1.52 K/mm3 (0.9-3.2); Lymphocytes Percent Auto 14.9 % (18.3-44.2); Mean Corpuscular HGB Conc 32.9 g/dl (32-36); Mean Corpuscular Hemoglobin 31.6 pg (26-34); Mean Corpuscular Volume 95.9 fl (80-100); Mean Platelet Volume 11.3 fl (7.4-10.4); Monocytes Absolute Auto 0.8 K/mm3 (0.1-0.6); Neutrophils Absolute Auto 7.6 K/mm3 (1.3-6.7); Neutrophils Percent Auto 74.7 % (45.5-73.1); Platelet Count Result 192 k/mm3 (150-375); Red Blood Count 4.34 M/mm3 (4.6-6.20); Red Cell Distribution Width 13.7 % (11.5-14.5); White Blood Count 10.2 K/mm3 (4.5-10.0)
[2022-10-31 05:40] LABS: Albumin Level 4.2 g/dL (3.5-5.1); Anion Gap 7 mmol/L (8-16); Blood Urea Nitrogen 37 mg/dL (9-20); Calcium 8.7 mg/dL (8.4-10.2); Carbon Dioxide 28 mmol/L (22-30); Chloride 98 mmol/L (98-107); Creatine Kinase 633 U/L (55-170); Estimated CRCL calculation 83 ml/min; Estimated Glomerular Filt Rate 55; Glucose 152 mg/dL (65-110); Phosphorus 4.8 mg/dL (2.5-4.5); Potassium 4.3 mmol/L (3.4-5.0); Sodium 133 mmol/L (137-145)
[2022-10-31 05:41] LABS: Complement C3 130 mg/dL (88-165)
[2022-10-31 07:57] LABS: Glucose Point of Care 170 mg/dl (65-105)
[2022-10-31] MEDS: AMIODARONE HCL 200 MG TABLET 400 MG PO (08:54)
[2022-10-31] MEDS: EUCERIN CREAM 120 GM JAR 1 APPLIC TOPICAL (08:55)
[2022-10-31] MEDS: carvediloL 12.5 MG TABLET PO (08:55)
[2022-10-31] MEDS: PRAVASTATIN SODIUM 20 MG TABLET PO (08:55)
[2022-10-31 11:47] LABS: Glucose Point of Care 162 mg/dl (65-105)
--- NOTE | 2022-10-31 12:20 | PM.DS ---
DS: Admitting Diagnosis Discharge Date 10/31/22 Admitting Diagnosis Malaise DS: Discharge Diagnosis Discharge Diagnosis (1) Atrial fibrillation and flutter: Code(s): I48.91 - Unspecified atrial fibrillation; I48.92 - Unspecified atrial flutter Status: Acute (2) KAITLIN (acute kidney injury): Code(s): N17.9 - Acute kidney failure, unspecified Status: Acute (3) Nonischemic cardiomyopathy: Code(s): I42.8 - Other cardiomyopathies Status: Acute (4) Diabetes: Code(s): E11.9 - Type 2 diabetes mellitus without complications Status: Acute (5) Hypertension: Code(s): I10 - Essential (primary) hypertension Status: Acute (6) Obesity: Code(s): E66.9 - Obesity, unspecified Status: Acute DS: Summary Hospital Course Reason for hospitalization: 66yo male with hx of AFib, DM and HTN here for malaise and found to be back in AFib. Please see H&P for details. Hospital Course: The patient developed malaise and noted his HR was elevated> He presented to the ED and was found to have AFib/Flutter with rapid ventricular response. He is compliant with his Xarelto. [id number] 4. TSH was normal. The patient was started on a Cardizem drip and home Coreg was resumed. The patient has a hx of cardioversion with Amiodarone which worked well in the past (Amiodarone was stopped about a year after CV). Cardiology was consulted and patient was started on Amiodarone. He underwent CV on 10/30/22 with return of normal sinus rhythm. BUN 23 with Cr 1.0 on admission but increased to BUN 48 and creatinine 1.8.? Could be related to transient hypotension overnight.? Could also be related to his atrial flutter with RVR.? We held his Lasix, metformin, spironolactone and lisinopril and decreased his Coreg dose.?Renal ultrasound was unremarkable. UA was clear. [place] 53. Renal function improved on repeat and supportive care. Echo showing EF 55-60%, Grade I diastolic dysfunction. A1c 8.0. The patient's blood glucose was monitored with AccuCheks covering with sliding scale.? Hypoglycemia protocol was available as needed.?BMI 50. This can contribute to his other medical problems. Educated about the benefits of leading a healthy lifestyle. Patient overall did well and was able to be discharged home on 10/31/22 Status at Discharge Cognitive/behavioral status at discharge: Stable Time Spent with Patient Time attestation: Total time spent providing and/or coordinating discharge services: 35 minutes Time spent: Greater than 30 minutes Exam Narrative: AF 98.7 117/73 76 14 97% ra Gen - NARD Chest - CTA bilaterally, nml RR CV - irregular and tachycardic. Tele showing AFlutter with variable conduction Abd - Soft, obese, NT, +BS Ext - no pitting pedal edema Neuro - Alert and oriented.? Nonfocal exam.? Psych - Nml mood and affect Skin - Warm and dry. DS: Data Data Completed and Pending Labs on day of discharge: Labs from last 24 hours 10/31/22 10/31/22 10/31/22 11:41 07:53 04:03 WBC RBC Hgb Hct MCV MCH MCHC RDW Plt Count MPV Immature Gran % (Auto) Neut % (Auto) Lymph % (Auto) [place] % (Auto) Eos % (Auto) Baso % (Auto) Lymph # (Auto) [place] # (Auto) Eos # (Auto) Baso # (Auto) Abs Immat Gran (auto) Absolute Neuts (auto) Absolute Nucleated RBC Nucleated RBC % Sodium Potassium Chloride Carbon Dioxide Anion Gap BUN Creatinine Estim Creat Clear Calc Estimated GFR Glucose POC Capillary Glucose 162 H 170 H Calcium Phosphorus Magnesium Total Creatine Kinase C-Reactive Protein Albumin Urine Color Urine Appearance Urine pH Ur Specific [place] Urine Protein Urine Glucose (UA) Urine Ketones Ur Blood (Man) Urine Nitrate Urine Bilirubin Urine Urobilinogen Ur Leukocyte Esterase Urine Eosinophils U Random To
--- NOTE | 2022-10-31 12:38 | PM.PNCARD ---
Progress Note: A&P Assessment and Plan (1) Atypical atrial flutter: Code(s): I48.4 - Atypical atrial flutter Status: Acute Assessment and Plan: Patient with a history of AFib flutter, history of 2 cardioversions last 1 being around 2018, presents with recurrent atypical atrial flutter RVR. Symptomatic, with some mild CHF as well. Underwent DCCV yesterday with restorationist of sinus rhythm. Continue amiodarone 400mg b.i.d for 5 more days, 400mg daily for a week, then 200mg daily maintenance dose OK for discharge home today (2) Acute on chronic diastolic CHF (congestive heart failure): Code(s): I50.33 - Acute on chronic diastolic (congestive) heart failure Status: Acute Assessment and Plan: Mild acute diastolic heart failure due to AFib RVR. H/O cardiomyopathy in the past w/ normalization of LV fxn after maintaining NSR. Also had some chest tightness with RVR, but no ischemic EKG changes or significant troponin rise. Can be evaluated as an outpatient if this persists. Diuresed 1500 cc's after 1 dose of lasix IV. Cont po Lasix Echo showed normal LVSF with grade I diastolic dysfunction. Entresto may be a better choice for him than lisinopril...can discuss as an outpatient at his follow up visit. (3) Chronic anticoagulation: Code(s): Z79.01 - senior living (current) use of anticoagulants Status: Acute Assessment and Plan: Chronically anticoagulated with Xarelto. (4) Body mass index (BMI) of 50-59.9 in adult: Onset Date: 12/01/17 Code(s): Z68.43 - Body mass index [BMI] 50.0-59.9, adult Status: Acute Assessment and Plan: Morbidly obese, may have sleep apnea. AHI on apnea link 6. Could do outpatient sleep study Subjective Date/time seen: 10/31/22 12:38 Cardiology follow up for atrial flutter, CHF Interval history: Feels well this morning and does not have any complaints. Maintaining sinus rhythm following DCCV yesterday. Eager to go home. Review of Systems Constitutional: Constitutional: Denies fever(s) Cardiovascular: Cardiovascular: Reports chest pain, Denies pedal edema, Denies lightheadedness, Reports palpitations, Reports dyspnea and Reports dyspnea on exertion Respiratory: Respiratory: Denies chest congestion, Reports dyspnea and Reports dyspnea on exertion Gastrointestinal: Gastrointestinal: Denies abdominal pain and Denies hematochezia Genitourinary: Genitourinary: Denies hematuria Musculoskeletal: Musculoskeletal: Reports no additional musculoskeletal complaints Integumentary/Breasts: Skin/Breast: Reports rash (actinic keratosis on arms) Neurologic: Reports system reviewed and no additional complaints, except as documented, Denies behavioral changes and Denies confusion Psychiatric: Psychiatric: Denies behavioral changes and Denies confusion Endocrine: Endocrine: Reports palpitations Exam Const: General: cooperative, healthy appearing and comfortable; No confusion Orientation/consciousness: oriented to person, patient oriented x3 and No confusion Eyes: EOM: EOMs intact bilaterally Neck: Neck: supple and no JVD Thyroid: thyroid normal Carotids: no bruits Resp: Effort & Inspection: normal respiratory effort Auscultation: clear to auscultation bilaterally Cardio: Rate: regular rate Rhythm: regular rhythm Heart sounds: no murmurs GI: Inspection: normal to inspection Skin: General skin exam: lesion Lesions: lesion noted Other: Actinic keratosis on arms, hyperpigmentation of legs with scattered macular skin lesions which are chronic. Neuro: General: oriented to person, patient oriented x3 and No confusion Extrem: Right lower extremity: edema Left lower extremity: edema Other: Trace bilateral LE edema Psych: Appearance: grossly normal Mental Status: mental status grossly normal Objective Data Vital Signs Vital Signs: Vital Signs - 24 hr 10/30/22 14:06 10/30/22 14:20 10/30/22 14:31 Temper
[2022-11-06 17:38] LABS: Complement Total CH50 >60 U/mL (31-60)
--- NOTE | 2022-11-13 10:07 | PC.NURSE ---
LORETTA is negative. Dr. Rosio alonzo.
== END 2022-10-31 14:22 | disposition home or self-care (01) ==
LOC: ANHED 23:10 → ANHIMU 10-30 07:26
PROVIDERS: Emergency Medicine; Internal Medicine Cardiovascular Disease; Admitting Provider Internal Medicine; Emergency Provider Emergency Medicine; PCP Family Medicine; Visit Provider Internal Medicine
PROC: 5A2204Z Restoration of Cardiac Rhythm, Single (ICD-10-PCS; CPT 92960; principal; 2022-10-30 14:00)
DX: I48.91 Unspecified atrial fibrillation (principal); I48.4 Atypical atrial flutter; I50.33 Acute on chronic diastolic (congestive) heart failure; N17.9 Acute kidney failure, unspecified; I42.8 Other cardiomyopathies; E11.42 Type 2 diabetes mellitus with diabetic polyneuropathy; I11.0 Hypertensive heart disease with heart failure; R07.9 Chest pain, unspecified; R00.0 Tachycardia, unspecified; I25.5 Ischemic cardiomyopathy; E78.5 Hyperlipidemia, unspecified; I35.8 Other nonrheumatic aortic valve disorders; E66.01 Morbid (severe) obesity due to excess calories; Z68.43 Body mass index [BMI] 50.0-59.9, adult; R06.02 Shortness of breath; M79.89 Other specified soft tissue disorders; J81.1 Chronic pulmonary edema; M25.562 Pain in left knee; M25.561 Pain in right knee; Z20.822 Contact with and (suspected) exposure to COVID-19; R94.31 Abnormal electrocardiogram [ECG] [EKG]; Z87.891 Personal history of nicotine dependence; Z79.84 Long term (current) use of oral hypoglycemic drugs; Z79.01 Long term (current) use of anticoagulants; Z79.899 Other long term (current) drug therapy
CPT/HCPCS: 92960; 36415; 71046; 76775; 80048; 80053; 80069; 81003; 82550; 82570; 82948; 83036; 83690; 83735; 83880; 84156; 84300; 84443; 84484; 85025; 85610; 85730; 85999; 86038; 86140; 86160; 86162; 87636; 93005; 94762; 96366; 96367; 96374; 96375; 96376; 99285; A9270; C8929; G0378; J0282; J1940; J2704; Q9957

== ENCOUNTER 2025-07-14 19:56 | Inpatient (IN) | payer MEDICARE, SELFPAY ==
[2025-07-14] VITALS (11 sets, daily range): BP systolic 125–144; BP diastolic 70–101; PULSE 93–121; RESP 21–31; TEMP 37.2; O2SAT 93–96
--- NOTE | ~2025-07-14 | XR_ITS ---
EXAMINATION: XR chest 1V 07/19/2025 18:47 INDICATION: Shortness of breath PROCEDURE: AP view of the chest COMPARISON: Comparison to multiple prior studies sequentially, with oldest reviewed study dated 10/28/2022. FINDINGS: The lungs are clear. There are no pleural effusions. There is no pneumothorax suspected. There is a dual-lumen central venous catheter, tips near the 6 cavoatrial junction. Prominent mediastinum. Cannot exclude lymphadenopathy. Right subclavian PICC line tip in the SVC. IMPRESSION: 1: No acute cardiopulmonary disease. 2: Prominent mediastinum. Consider lymphadenopathy. Reviewed, dictated and finalized at location O.
--- NOTE | ~2025-07-14 | XR_ITS ---
XR shoulder RT min 2V 07/14/2025 21:29 Indication: Ecchymosis. Right shoulder pain. Procedure: 2 views right shoulder Comparison: No prior studies for comparison. 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 No acute fracture is identified. No focal soft tissue abnormality. Impression: 1: No acute fracture. Reviewed, dictated and finalized at location O. Impression: 1: No acute fracture.
--- NOTE | ~2025-07-14 | US_ITS ---
US renal BI 07/15/2025 13:07 Procedure: Realtime transabdominal ultrasound of the kidneys and bladder. Indication: Acute renal insufficiency Comparison: No prior studies for comparison. Findings: Renal echotexture is normal bilaterally without hydronephrosis, contour deforming mass or renal calculus. The right kidney measures 11.6 cm and left kidney measures 11.7 cm. Bladder decompressed by Correa catheter. Impression: 1: Unremarkable renal ultrasound. No stones, masses or hydronephrosis. Reviewed, dictated and finalized at location O. Impression: 1: Unremarkable renal ultrasound. No stones, masses or hydronephrosis.
--- NOTE | ~2025-07-14 | US_ITS ---
US soft tissue UE RT 07/20/2025 18:50 Indication: Right upper extremity swelling Procedure: Ultrasound of the right forearm soft tissues Comparison: No prior studies for comparison. Findings: There is mild subcutaneous edema. No discrete walled off fluid collection or mass. Normal vascularity. Impression: 1: Mild subcutaneous edema in the area of swelling. Reviewed, dictated and finalized at location O. Impression: 1: Mild subcutaneous edema in the area of swelling.
--- NOTE | ~2025-07-14 | XR_ITS ---
XR chest port-a-cath/central 07/19/2025 13:22 Indication: Portacatheter placement Procedure: AP portable chest Comparison: Comparison to multiple prior studies sequentially, with oldest reviewed study dated 03/03/2018. Findings: Cardiomegaly with interstitial edema. Small right pleural effusion. Right IJ dual-lumen central venous catheter tips near the cavoatrial junction in the SVC. No pneumothorax. No acute osseous abnormality. Impression: 1: Cardiomegaly with mild interstitial edema. Reviewed, dictated and finalized at location O. Impression: 1: Cardiomegaly with mild interstitial edema.
--- NOTE | ~2025-07-14 | XR_ITS ---
XR chest 1V 07/14/2025 21:29 Indication: Patient found unresponsive Procedure: AP view of the chest Comparison: Comparison to multiple prior studies sequentially, with oldest reviewed study dated 06/15/2013. Findings: Moderate cardiomegaly with pulmonary vascular congestion. Elevated right diaphragm. Right basilar atelectasis. No focal pneumonia, edema or pneumothorax. There is a possible nondisplaced left midclavicular fracture. Impression: 1: Right basilar atelectasis. 2: Moderate cardiomegaly with pulmonary vascular congestion. 3: Possible nondisplaced left midclavicular fracture. Reviewed, dictated and finalized at location O. Impression: 1: Right basilar atelectasis. 2: Moderate cardiomegaly with pulmonary vascular congestion. 3: Possible nondisplaced left midclavicular fracture.
--- NOTE | ~2025-07-14 | CT_ITS ---
EXAMINATION: CT BRAIN W/O DATE: 07/14/2025 21:47 INDICATION: Patient found unconscious TECHNIQUE: Computed tomography (CT) of the head was performed without intravenous contrast. The dose-length product was 756.67 mGy-cm. Automated exposure control and iterative reconstruction technique were employed. COMPARISON: No prior studies for comparison. FINDINGS: Normal brain parenchymal volume for age. Normal nixon-white differentiation. No acute intracranial hemorrhage, infarction, mass or mass effect. No ventriculomegaly or midline shift. Midline sagittal images demonstrate a normal corpus callosum, craniovertebral junction and sella turcica. Basilar cisterns are patent. There is minimal mucosal thickening right maxillary sinus. Mastoids are pneumatized. No depressed skull fractures. IMPRESSION: 1. No acute intracranial abnormality. Reviewed, dictated and finalized at location O.
--- NOTE | ~2025-07-14 | US_ITS ---
US soft tissue UE LT 07/20/2025 18:50 Indication: Left upper extremity swelling Procedure: Soft tissue ultrasound of the left arm in the area of abnormality Comparison: No prior studies for comparison. Findings: In the area of swelling there is superficial venous thrombosis. No other discrete fluid collection or mass. Impression: 1: Area of superficial venous thrombosis corresponds to the area of left arm swelling. Reviewed, dictated and finalized at location O. Impression: 1: Area of superficial venous thrombosis corresponds to the area of left arm sw elling.
--- NOTE | ~2025-07-14 | XR_ITS ---
XR fl guide central line place Indication: Portacatheter placement TECHNIQUE: Fluoroscopy used during portacatheter placement performed by [Chris Keenan] on 07/19/2025. 135 seconds of fluoroscopy time with 2 fluoroscopic images captured. FINDINGS: Correlate with procedure note. IMPRESSION: Fluoroscopy used during portacatheter placement. Reviewed, dictated and finalized at location O.
--- NOTE | ~2025-07-14 | XR_ITS ---
XR chest 1V portable 07/21/2025 21:42 Indication: Shortness of breath. Low blood pressure. Procedure: AP portable chest Comparison: Comparison to multiple prior studies sequentially, with oldest reviewed study dated 07/14/2025. Findings: Borderline heart size. Left basilar infiltrates may represent atelectasis or pneumonia. Right IJ central venous catheter in the SVC. No significant effusion or pneumothorax. Impression: 1: Left basilar infiltrates may represent atelectasis or pneumonia. Reviewed, dictated and finalized at location O. Impression: 1: Left basilar infiltrates may represent atelectasis or pneumonia.
--- NOTE | ~2025-07-14 | XR_ITS ---
XR chest 1V portable 07/22/2025 17:16 Indication: Hypoxia Procedure: AP portable chest Comparison: Comparison to multiple prior studies sequentially, with oldest reviewed study dated 07/19/2025. Findings: Cardiomegaly. Shallow inspiration. Elevation of the right diaphragm. There is developing left basilar airspace disease, consistent with pneumonia. Jada catheter tips in the SVC. No pneumothorax. No acute osseous abnormality. Impression: 1: Developing left basilar airspace disease, consistent with pneumonia. Reviewed, dictated and finalized at location O. Impression: 1: Developing left basilar airspace disease, consistent with pneumonia.
--- NOTE | ~2025-07-14 | US_ITS ---
EXAMINATION: US venous doppler UE RT DATE: 08/01/2025 21:09 INDICATION: Persistent right upper limb swelling TECHNIQUE: Grayscale images without and with compression and Doppler images of the right upper extremity veins were obtained. COMPARISON: None. FINDINGS: The right internal jugular vein, subclavian vein, axillary vein, brachial vein, basilic vein, cephalic vein, radial vein, and ulnar vein are patent. Peripherally intravenous catheter is seen in the right cephalic vein. IMPRESSION: 1. Patent right upper extremity veins. No evidence of venous thrombosis. Reviewed, dictated and finalized at location A.
--- NOTE | ~2025-07-14 | XR_ITS ---
XR elbow RT 2V 07/14/2025 21:29 Indication: Ecchymosis over right arm Procedure: 2 views right elbow Comparison: No prior studies for comparison. Findings: No fracture, subluxation or dislocation. No significant joint effusion. No foreign bodies. There are soft tissue calcifications overlying the elbow and forearm. Impression: 1: No acute fracture. Reviewed, dictated and finalized at location O. Impression: 1: No acute fracture.
--- NOTE | ~2025-07-14 | CT_ITS ---
EXAMINATION: CT cervical spine wo con DATE: 07/14/2025 21:47 INDICATION: Patient found unconscious. TECHNIQUE: Computed tomography (CT) of the cervical spine was performed without intravenous contrast. The dose-length product was 618 mGy-cm. Automated exposure control and iterative reconstruction technique were employed. COMPARISON: None FINDINGS: Lung apices are unremarkable. No significant paraspinal soft tissue abnormality. Reversal of cervical lordosis. Craniovertebral junction is normal. Odontoid process within normal limits. There is severe multilevel degenerative disc disease and endplate hypertrophy at C2-3 through C6-7. There is severe multilevel uncinate degenerative change. Mild facet degenerative changes. Lung apices are normal. No acute fracture or traumatic malalignment. IMPRESSION: 1. No acute abnormality of the cervical spine. 2: Severe cervical spondylosis. Reviewed, dictated and finalized at location O.
--- NOTE | ~2025-07-14 | XR_ITS ---
EXAMINATION: XR chest port-a-cath/central, 07/15/2025 16:45 CDT HISTORY: PORT A CATH INSERTION COMPARISON: No comparisons available. Technique: Single view. Findings: Mild pulmonary venous congestion. No pneumothorax. Mild cardiomegaly. Mediastinal and hilar contours are within normal limits. Bony thorax no acute abnormality. Right catheter terminates in the SVC. Impression: Mild CHF Reviewed, dictated and finalized at location A. Impression: Mild CHF
--- NOTE | ~2025-07-14 | XR_ITS ---
EXAMINATION: XR fl guide central line place DATE: 07/15/2025 16:48 INDICATION: Port catheter insertion TECHNIQUE: 3 fluoroscopic images of the right central chest were obtained during procedure performed by Dr. Keenan. Radiologist was not present for the imaging or procedure. The amount of fluoroscopy time used during this procedure was 2.3 minutes. Total DAP was 9.632 Gycm^2. COMPARISON: None. FINDINGS: Images demonstrate hemostat, likely external to the patient and for marking with tip projecting over the medial aspect of the mid right lung. Subsequent images demonstrate a wire likely advanced to the superior vena cava projecting over the hemostat tip. IMPRESSION: 1. Fluoroscopy utilized during reported port catheter insertion. See procedure note for further detail. Reviewed, dictated and finalized at location A.
--- NOTE | ~2025-07-14 | US_ITS ---
US scrotum doppler INDICATION: Scrotal wound TECHNIQUE: Testicular sonogram utilizing grayscale and color Doppler FINDINGS: The testes are normal in size and appearance. No focal lesions are seen. The right testes measures 3.7 x 2.6 x 2.9 cm centimeters, and the left testis measures 3.8 x 1.9 x 2.6 cm cm. There is normal vascular flow to both testes. There is diffuse scrotal wall thickening. Small left epididymal cysts. Small right hydrocele. Right epididymis within normal limits. There is no varicocele or hydrocele. IMPRESSION: 1. Diffuse scrotal wall thickening. Consider an infectious/inflammatory process such as cellulitis, lymphedema or systemic causes like cirrhosis, nephrotic syndrome or generalized edema. Reviewed, dictated and finalized at location O. IMPRESSION: 1. Diffuse scrotal wall thickening. Consider an infectious/inflammatory proces s such as cellulitis, lymphedema or systemic causes like cirrhosis, nephrotic s yndrome or generalized edema.
--- NOTE | ~2025-07-14 | XR_ITS ---
XR wrist RT 2V 07/14/2025 21:29 Indication: Right wrist pain Procedure: 2 views right wrist Comparison: No prior studies for comparison. 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 No acute fracture or traumatic malalignment. No foreign bodies. Mild diffuse soft tissue swelling. Impression: 1: No acute fracture. Reviewed, dictated and finalized at location O. Impression: 1: No acute fracture.
--- NOTE | 2025-07-14 20:15 | ECG_ITS ---
Test Date: 2025-07-14 20:16:16 Measurements Intervals [place] Rate: 104 P: -2 NH: 194 QRS: -47 QRSD: 116 T: 79 QT: 340 QTc: 449 Interpretive Statements SINUS TACHYCARDIA LEFT AXIS DEVIATION INTRAVENTRICULAR CONDUCTION DELAY PATTERN CONSISTENT WITH PULMONARY DISEASE BASELINE ARTIFACT- I, II, III, AVR, V3 BORDERLINE ECG No previous ECG available for comparison Electronically Signed On 07-14-2025 20:23:03 CDT by Flavio Dillon D.O.
--- NOTE | 2025-07-14 20:22 | ED.GENADULT ---
HPI - General Adult General Chief complaint: Weakness Stated complaint: LAID ON GROUND MOST OF DAY, COULDN'T GET UP. Time Seen by Provider: 07/14/25 19:59 History of Present Illness HPI narrative: This is a 69-year-old male presenting after being unable to get up off the garage floor. Patient says that he was sitting on the step in his garage when he thinks he fell asleep insulin to the ground. He was too weak to get up. Patient is also having hallucinations and says that he saw several people were approximately 2-1/2 feet tall that he believes belong to a rastafari group and they were unwilling to help him. Depsite these hallucinations the patient is currently AOx3. He is denying headache, fevers, chest pain, difficulty breathing, abdominal pain nausea vomiting or diarrhea. He says his knees hurt that is chronic for him since he is 400 lb. He denies any use of drugs or alcohol. No recent illness. Patient lives on his own. Related Data Home Medications ?Medication ?Instructions ?Recorded ?Confirmed ?Last Taken ?Type furosemide 20 mg tablet 20 mg PO DAILY 10/28/22 10/29/22 Unknown History Held on 10/31/22. Instructions: HOLD - Resume when okay with your doctor. lisinopril 10 mg tablet 10 mg PO DAILY 10/28/22 10/29/22 Unknown History Held on 10/31/22. Instructions: HOLD - Resume when okay with your doctor metformin 500 mg tablet 1,000 mg PO BID 10/28/22 10/29/22 Unknown History pravastatin 20 mg tablet 20 mg PO DAILY 10/28/22 10/29/22 Unknown History rivaroxaban 20 mg tablet (Xarelto) 20 mg PO HS 10/28/22 10/29/22 Unknown History spironolactone 25 mg tablet 25 mg PO EVERY OTHER DAY 10/28/22 10/29/22 10/27/22 History Held on 10/31/22. Instructions: Resume on 11/11/22. spironolactone 25 mg tablet 12.5 mg PO EVERY OTHER DAY 10/29/22 10/29/22 10/28/22 History Held on 10/31/22. Instructions: Resume on 11/11/22. Allergies Allergy/AdvReac Type Severity Reaction Status Date / Time No Known Allergies Allergy Unknown Unverified 12/31/16 17:51 [facility] Past Medical History Medical History Chronic anticoagulation Atypical atrial flutter Diabetic peripheral neuropathy Hyperlipidemia Nonischemic cardiomyopathy Chronic venous stasis dermatitis Body mass index (BMI) of 50-59.9 in adult (12/01/17) Chronic pain of both knees Diabetes Atrial fibrillation With history of synchronized cardioversion x2 Hypertension Surgical History Surgical History History of bilateral hip replacements Family History Family History Mother Healthy adult 90 years old Father , Age 86 No problems noted. Sibling , 68 Cancer Social History Social History Social History: Patient is single the never been . He does not have any children. The patient is a former smoker he smoked 1 pack of cigarettes per day for about 10 years but quit smoking in the . He denies significant alcohol use. 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 Code status: Full code Surrogate decision maker: Gisel Remy (sister) Smoking status: Former smoker Alcohol intake: never Substance use: never Lack of Transportation: No Lack of Food: Never True Current Housing: I Have Housing Concerned About Future Housing: No Difficulty Paying Gas/Electric Bills: No Difficulty Paying for Meds: No Currently Unemployed: No Education: Decline to Answer Difficulty w/ Childcare or Family Care: No Spiritual care concerns: No Exam Narrative: APPEARANCE: No apparent distress. A&O x3 Head: atraumatic. EYES: EOMI, NOSE: Atraumatic NECK: Trachea midline RESPIRATORY: No increased rate of breathing clear to auscultation CARDIOVASCULAR: RRR, no peripheral edema, chronic appearing venous stasis ulcers to the lower extremities ABDOMINAL: Obese, nontender although exam is limited by body habitus MUSCULOSKELETAl: No obvious deformities NEURO: Alert. Moving 4/4 extremities SKIN:: Deep ecchymosis medial aspect of the right arm. All compartments are soft the patient does not have severe pain. Radian ulnar melena pulses are intact. Recreational Director strength is intact. Stage II decubitus ulcer over the right posterior leg/glute. Ecchymosis over the medial right thigh without crepitus or necrosis/evidence of infection PSYCHIATRIC: Normal affect Course Vital Signs Vital signs: Vital Signs Temperature 98.9 F 07/14/25 20:04 Pulse Rate 119 H 07/14/25 20:04 Respiratory Rate 31 H 07/14/25 20:04 Blood Pressure 125/101 H 07/14/25 20:04 Pulse Oximetry 95 07/14/25 20:04 Oxygen Delivery Room Air 07/14/25 20:04 Temperature 98.9 F 07/14/25 20:04 Pulse Rate 98 07/14/25 23:45 Respiratory Rate 30 H 07/14/25 23:45 Blood Pressure 144/70 H 07/14/25 23:37 Pulse Oximetry 94 07/14/25 23:38 Oxygen Delivery Room Air 07/14/25 21:09 Medical Decision Making MDM Narrative Medical decision making narrative: -Course: 69-year-old male presenting after being found down on the ground for an undetermined amount of time. Physical exam shows deep ecchymosis over the right arm, skin breakdown over the posterior thigh a small amount of ecchymosis in the right medial thigh. The compartments of his right arm are soft and pulses were dopplered using an US. He is tachycardic but blood pressures are stable. Patient given a 30 cc/kilogram bolus of ideal body weight. Started on cefepime and vancomycin while completing his workup. Prelim CT brain C-spine negative for acute findings. Unfortunately patient is too large to fit in our CT scanner no was unable to get a CT chest abdomen pelvis. Prelim read chest x-ray shows no findings. Prelim read of the right arm ( shoulder elbow and wrist) did not reveal any obvious fractures but official read will occur in the morning. Laboratory studies showed a white count 26.2. Pain patient has acute kidney injury and potassium 6.6. EKG shows peaked T-waves the patient has been treated with Lokelma, insulin, dextrose, and bicarb and calcium. CPK greater than 16,000. Initial lactic of 4.7. ABG showed metabolic acidosis. AST elevated 1867 which is likely from the rhabdo as opposed to acute liver injury. Troponin elevated 0.098 but no ischemic changes on EKG and no chest pain. more Likely demand ischemia versus cross-reactivity of CPK. Drug screen and alcohol negative. Urine not indicative infection. Viral swabs negative. Blood cultures still pending. Patient will be admitted the hospital for further management of his rhabdomyolysis. Recommend frequent checks of the R arm to eval for compartment syndrome. -DDX includes but is not limited to: Sepsis, rhabdomyolysis, pneumonia, dehydration intracranial hemorrhage, UTI -Co-morbidities complicating care: Hypertension, diabetes, AFib on Eliquis -Social determinants of health: Patient lives alone Vital Signs Vital Signs: Vital Signs Temperature 98.9 F 07/14/25 20:04 Pulse Rate 119 H 07/14/25 20:04 Respiratory Rate 31 H 07/14/25 20:04 Blood Pressure 125/101 H 07/14/25 20:04 Pulse Oximetry 95 07/14/25 20:04 Oxygen Delivery Room Air 07/14/25 20:04 Temperature 98.9 F 07/14/25 20:04 Pulse Rate 98 07/14/25 23:45 Respiratory Rate 30 H 07/14/25 23:45 Blood Pressure 144/70 H 07/14/25 23:37 Pulse Oximetry 94 07/14/25 23:38 Oxygen Delivery Room Air 07/14/25 21:09 Lab Data 07/14/25 20:36 07/14/25 20:36 Labs: Lab Results 07/14/25 07/14/25 07/14/25 Range/Units 20:36 20:55 22:59 WBC 26.2 H (4.5-10.0) K/mm3 RBC 4.89 (4.6-6.20) M/mm3 Hgb 15.3 (14.0-18.0) g/dL Hct 47.7 (42.0-52.0) % MCV 97.5 (80-100) fl MCH 31.3 (26-34) pg MCHC 32.1 (32-36) g/dl RDW 14.5 (11.5-14.5) % Plt Count 270 (150-375) k/mm3 MPV 11.6 H (7.4-10.4) fl Immature Gran % (Auto) 1.5 H (0-0.5) % Neut % (Auto) 91.7 H (45.5-73.1) % Lymph % (Auto) 2.2 L (18.3-44.2) % Edwards % (Auto) 4.4 (2.6-8.5) % Eos % (Auto) 0.0 (0-4.4) % Baso % (Auto) 0.2 (0.2-1.2) % Lymph # (Auto) 0.58 L (0.9-3.2) K/mm3 Edwards # (Auto) 1.2 H (0.1-0.6) K/mm3 Eos # (Auto) 0.0 (0-0.3) K/mm3 Baso # (Auto) 0.1 (0.0-0.1) K/mm3 Abs Immat Gran (auto) 0.40 H (0.00-0.031) K/mm3 Absolute Neuts (auto) 24.0 H (1.3-6.7) K/mm3 Absolute Nucleated RBC 0.000 (0.0-0.012) K/mm3 Nucleated RBC % 0.0 (0.0-0.2) % PT 15.1 H (11.1-14.7) Seconds INR 1.2 APTT 30.8 (22.3-36.8) Seconds Sodium 132 L (137-145) mmol/L Potassium 6.6 H* (3.4-5.0) mmol/L Chloride 99 (98-107) mmol/L Carbon Dioxide 18 L (22-30) mmol/L Anion Gap 15 H (4-12) mmol/L BUN 54 H D (9-20) mg/dL Creatinine 2.07 H (0.7-1.3) mg/dL Estim Creat Clear Calc 53 ml/min Estimated GFR 32 L (59 - ) Glucose 318 H (65-110) mg/dL POC Capillary Glucose 272 H 259 H (65-105) mg/dl Lactic Acid 4.7 H* (0.7-2.0) mmol/L Calcium 9.1 (8.4-10.2) mg/dL Phosphorus 7.8 H (2.5-4.5) mg/dL Magnesium 2.1 (1.6-2.3) mg/dL Total Bilirubin 1.6 H (0.2-1.3) mg/dL AST 1867 H (17-59) U/L ALT 437 H (6-50) U/L Alkaline Phosphatase 85 (38-126) U/L Total Creatine Kinase > 33516 H (55-170) U/L Troponin I 0.098 H* (0.000-0.034) ng/mL NT-Pro-B Natriuret Pep 1310 H (19.9-100) pg/mL Total Protein 6.5 (6.3-8.2) g/dL Albumin 3.9 (3.5-5.1) g/dL Lipase 182 (23-300) U/L TSH (Reflex) 2.180 (0.465-4.68) uIU/mL Urine Color (Yellow) Urine Appearance (Clear) Urine pH (5.0-9.0) Ur Specific [place] (1.001-1.035) Urine Protein (Negative) mg/dL Urine Glucose (UA) (Negative) mg/dL Urine Ketones (Negative) mg/dL Ur Blood (Man) (Negative) Urine Nitrate (Negative) Urine Bilirubin (Negative) Urine Urobilinogen (<2.0) mg/dL Leukocyte Esterase Rfl (Negative) JASMINA/UL Urine RBC (0-2) /hpf Urine WBC (0-3) /hpf Ur Squamous Epith Cells (Few) /hpf Urine Bacteria /hpf Urine Casts Urine Opiates Screen (Negative) Urine Methadone Screen (Negative) Ur Barbiturates Screen (Negative) Ur Phencyclidine Scrn (Negative) Ur Amphetamine Screen (Negative) U Benzodiazepines Scrn (Negative) Urine Cocaine Screen (Negative) U Cannabinoids Screen (Negative) Ethyl Alcohol < 10 (<10) mg/dL Influenza A (RT-PCR) Negative (Negative) Influenza B (RT-PCR) Negative (Negative) RSV (RT-PCR) Negative (Negative) SARS-CoV-2 RNA (RT-PCR) Negative (Negative) 07/14/25 07/14/25 Range/Units 23:12 23:57 WBC (4.5-10.0) K/mm3 RBC (4.6-6.20) M/mm3 Hgb (14.0-18.0) g/dL Hct (42.0-52.0) % MCV (80-100) fl MCH (26-34) pg MCHC (32-36) g/dl RDW (11.5-14.5) % Plt Count (150-375) k/mm3 MPV (7.4-10.4) fl Immature Gran % (Auto) (0-0.5) % Neut % (Auto) (45.5-73.1) % Lymph % (Auto) (18.3-44.2) % Edwards % (Auto) (2.6-8.5) % Eos % (Auto) (0-4.4) % Baso % (Auto) (0.2-1.2) % Lymph # (Auto) (0.9-3.2) K/mm3 Edwards # (Auto) (0.1-0.6) K/mm3 Eos # (Auto) (0-0.3) K/mm3 Baso # (Auto) (0.0-0.1) K/mm3 Abs Immat Gran (auto) (0.00-0.031) K/mm3 Absolute Neuts (auto) (1.3-6.7) K/mm3 Absolute Nucleated RBC (0.0-0.012) K/mm3 Nucleated RBC % (0.0-0.2) % PT (11.1-14.7) Seconds INR APTT (22.3-36.8) Seconds Sodium (137-145) mmol/L Potassium (3.4-5.0) mmol/L Chloride (98-107) mmol/L Carbon Dioxide (22-30) mmol/L Anion Gap (4-12) mmol/L BUN (9-20) mg/dL Creatinine (0.7-1.3) mg/dL Estim Creat Clear Calc ml/min Estimated GFR (59 - ) Glucose (65-110) mg/dL POC Capillary Glucose 251 H (65-105) mg/dl Lactic Acid (0.7-2.0) mmol/L Calcium (8.4-10.2) mg/dL Phosphorus (2.5-4.5) mg/dL Magnesium (1.6-2.3) mg/dL Total Bilirubin (0.2-1.3) mg/dL AST (17-59) U/L ALT (6-50) U/L Alkaline Phosphatase (38-126) U/L Total Creatine Kinase (55-170) U/L Troponin I (0.000-0.034) ng/mL NT-Pro-B Natriuret Pep (19.9-100) pg/mL Total Protein (6.3-8.2) g/dL Albumin (3.5-5.1) g/dL Lipase (23-300) U/L TSH (Reflex) (0.465-4.68) uIU/mL Urine Color Dark yellow (Yellow) Urine Appearance Cloudy H (Clear) Urine pH 5.0 (5.0-9.0) Ur Specific [place] 1.027 (1.001-1.035) Urine Protein 2+ H (Negative) mg/dL Urine Glucose (UA) Negative (Negative) mg/dL Urine Ketones Trace H (Negative) mg/dL Ur Blood (Man) 3+ H (Negative) Urine Nitrate Negative (Negative) Urine Bilirubin 2+ H (Negative) Urine Urobilinogen 1.0 (<2.0) mg/dL Leukocyte Esterase Rfl Trace H (Negative) JASMIAN/UL Urine RBC 21-50 H (0-2) /hpf Urine WBC 0-5 (0-3) /hpf Ur Squamous Epith Cells None seen (Few) /hpf Urine Bacteria None seen /hpf Urine Casts 0-2 Urine Opiates Screen Negative (Negative) Urine Methadone Screen Negative (Negative) Ur Barbiturates Screen Negative (Negative) Ur Phencyclidine Scrn Negative (Negative) Ur Amphetamine Screen Negative (Negative) U Benzodiazepines Scrn Negative (Negative) Urine Cocaine Screen Negative (Negative) U Cannabinoids Screen Negative (Negative) Ethyl Alcohol (<10) mg/dL Influenza A (RT-PCR) (Negative) Influenza B (RT-PCR) (Negative) RSV (RT-PCR) (Negative) SARS-CoV-2 RNA (RT-PCR) (Negative) ABG Data ABG results: 07/14/25 20:36 VBG pH 7.273 L VBG pCO2 42.9 VBG pO2 < 27.0 L VBG HCO3 19.4 L O2 Delivery Device Room air O2 Liters/Min 0.0 FiO2 21 Critical Care Time Critical Care Time Critical Care Time: Yes Total Critical Care Time: 35 Discharge Plan Discharge Clinical Impression: Rhabdomyolysis, Sepsis, Ecchymosis, Decubital ulcer, Acute kidney injury Patient Disposition: Still a Patient Condition: Serious Patient Language: Greenlandic Prescriptions: No Action metformin 500 mg tablet 1,000 mg PO BID spironolactone 25 mg tablet 25 mg PO EVERY OTHER DAY Rx Instructions: Due for 25mg on 10/29/22 lisinopril 10 mg tablet 10 mg PO DAILY pravastatin 20 mg tablet 20 mg PO DAILY furosemide 20 mg tablet 20 mg PO DAILY Xarelto 20 mg tablet 20 mg PO HS spironolactone 25 mg tablet 12.5 mg PO EVERY OTHER DAY Rx Instructions: Due for 12.5mg on 10/30/22 amiodarone [Pacerone] 200 mg Tablet See Rx Instructions .ROUTE .COMPLEX 30 Days Qty: 38 0RF Rx Instructions: 400 mg orally twice daily for 5 days, then 400mg orally once daily for one week carvedilol 25 mg tablet 12.5 mg PO BID Qty: 30 0RF Follow-up/Referrals: Juan Pablo Silver MD [Primary Care Provider, Family Practice]
[2025-07-14 20:45] LABS: Fractional Inspired Oxygen 21 %; HCO3 VBG 19.4 mEq/l (24.0-30.0); PCO2 VBG 42.9 mmHg (42.0-48.0); pH VBG 7.273 (7.300-7.400)
[2025-07-14 20:46] LABS: Liters per Minute 0.0 LPM; PO2 VBG < 27.0 mmHg (35.0-45.0)
[2025-07-14 21:02] LABS: Hematocrit 47.7 % (42.0-52.0); Hemoglobin 15.3 g/dL (14.0-18.0); Immature Granulocyte Percent A 1.5 % (0-0.5); Lymphocytes Absolute Auto 0.58 K/mm3 (0.9-3.2); Mean Corpuscular HGB Conc 32.1 g/dl (32-36); Mean Corpuscular Hemoglobin 31.3 pg (26-34); Mean Corpuscular Volume 97.5 fl (80-100); Nucleated Red Blood Cells Absolute Auto 0.000 K/mm3 (0.0-0.012); Nucleated Red Blood Cells Perc 0.0 % (0.0-0.2); Platelet Count Result 270 k/mm3 (150-375); Red Blood Count 4.89 M/mm3 (4.6-6.20); White Blood Count 26.2 K/mm3 (4.5-10.0)
[2025-07-14] MEDS: LACTATED RINGERS 1,000 ML 999 ML IV CONT (21:19)
[2025-07-14] MEDS: LACTATED RINGERS 2,000 ML 999 ML IV CONT (21:19)
[2025-07-14 21:26] LABS: Alanine Aminotransferase 437 U/L (6-50); Albumin Level 3.9 g/dL (3.5-5.1); Alkaline Phosphatase 85 U/L (38-126); Anion Gap 15 mmol/L (4-12); Bilirubin,Total 1.6 mg/dL (0.2-1.3); Blood Urea Nitrogen 54 mg/dL (9-20); Calcium 9.1 mg/dL (8.4-10.2); Carbon Dioxide 18 mmol/L (22-30); Chloride 99 mmol/L (98-107); Estimated CRCL calculation 53 ml/min; Estimated Glomerular Filt Rate 32; Glucose 318 mg/dL (65-110); Lipase 182 U/L (23-300); Magnesium 2.1 mg/dL (1.6-2.3); Potassium 6.6 mmol/L (3.4-5.0); Sodium 132 mmol/L (137-145); Total Protein 6.5 g/dL (6.3-8.2)
[2025-07-14 21:32] LABS: NT Pro B Type Natriuretic Pept 1310 pg/mL (19.9-100); Troponin I 0.098 ng/mL (0.000-0.034)
[2025-07-14 21:36] LABS: Influenza A QL RT-PCR Negative (Negative); Influenza B QL RT-PCR Negative (Negative); RSV RNA, RT-PCR Negative (Negative); SARS-CoV-2 RNA PCR Negative (Negative)
[2025-07-14 21:41] LABS: Thyroid Stimulating Hormone Reflex 2.180 uIU/mL (0.465-4.68)
[2025-07-14 21:49] LABS: INR 1.2; Prothrombin Time 15.1 Seconds (11.1-14.7)
[2025-07-14 21:50] LABS: Partial Thromboplastin Time 30.8 Seconds (22.3-36.8)
[2025-07-14 21:52] LABS: Aspartate Amino Transferase 1867 U/L (17-59)
[2025-07-14] MEDS: SODIUM ZIRCONIUM CYCLOSILICATE 10 GM POWD.PACK PO (22:04)
[2025-07-14 22:21] LABS: Creatine Kinase > 16000 U/L (55-170)
--- NOTE | 2025-07-14 22:58 | PM.IMHP ---
H&P: HPI History of Present Illness Date/Time: 07/14/25 22:58 Chief Complaint: Fell and was unable to get up Narrative: 69-year-old male with past medical history of morbid obesity with BMI greater than 50, diastolic heart failure, paroxysmal atrial fibrillation, type 2 diabetes mellitus and obstructive sleep apnea who presented to the ER from home via EMS after being found on the ground. The patient is alert oriented person place time but is not the best historian regarding the current situation. He actually reports that there were 2 ft tall little people that came by and refused to help him get up. The patient's sister/surrogate decision maker the bedside and helps patient provide some information. The patient initially reported that he had been sitting on the steps in his garage and fell asleep and was unable to get up after a fell to the ground from the step. However at the time my evaluation the patient stated he was sitting in a chair in his kitchen and fell and was unable to get up. Per EMS report the patient was found in his garage on the floor after he called a friend to see if it William could help him up. The patient thought that he had only been on the ground since that morning. However, sister had last heard from him on the phone at 03:00 on the . The patient admits that he may have actually went to breakfast on the and may have been in the garage that whole time until he was found around 19:30. The patient does not think he hit his head and denies any headaches or episodes of lightheadedness. He denies any chest pain. He reports he has been having some sinus congestion and feels like he has some hay fever. The he denies any palpitations. He is noted to have some labored respirations but denies any shortness of breath. He has a large bruise extending from is medial upper arm down past his elbow and into his wrist but he denies any known injury. He reports that he was laying on his left side when he was found so he does not know how the bruising occurred. He does not a whole know how long the bruising is been there. He does have some chronic venous stasis dermatitis of his lower extremities and has to blisters that popped in have been weeping but he states that it is on not unusual for him to if these types of wounds that are weeping. He denies any fevers or chills. He was afebrile in the ER. He had not been able to produce any urine in the ER in a Correa catheter was placed a my request at which time the patient had tea-colored urine of about 250 mL. He does admit that he has been having decreased urine output for a couple of days but denies any hematuria, dysuria or foul-smelling urine. He does have some chronic candidiasis in his groin and under his pannus. His glucoses were elevated in the ER up to 318. He states that his morning glucoses are usually around 140 and a thinks is last A1c was less than 7. He does not check his glucoses every day and usually only checks his fasting glucose. He does not think that he has taken is medications since the . Review of Systems Review of Systems: 12 systems were reviewed with pertinent positives and negatives per HPI. Except as documented in the HPI, all other systems were reviewed and are negative. [facility] Past Medical History Medical History (Updated 07/15/25 @ 02:25 by Mary Lemos DO) Obstructive sleep apnea Mention on prior history and physicals but patient is never been treated with CPAP Atrial fibrillation With history of synchronized cardioversion x2 Atypical atrial flutter Venous stasis dermatitis of both lower extremities Chronic anticoagulation Diabetic peripheral neuropathy Hyperlipidemia Nonischemic cardiomyopathy Body mass index (BMI) of 50-59.9 in adult (12/01/17) Chronic pain of both knees Diabetes Hypertension Surgical History Surgical History (Updated 07/15/25 @ 01:54 by Mary Lemos DO) History of cardiac catheterization (2012) Normal coronary arteries at that time he was diagnosed with nonischemic cardiomyopathy History of bilateral hip replacements (~2004) Family History Family History Mother Healthy adult 90 years old Father , Age 86 Lymphoma Atrial fibrillation Sibling , 68 Cancer Social History Social History (Updated 07/15/25 @ 01:55 by Mary Lemos DO) Social History: Patient is single the never been . He does not have any children. The patient is a former smoker he smoked 1 pack of cigarettes per day for about 10 years but quit smoking in the 1980s. He denies significant alcohol use. 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 Code status: Full code (although he would not want long-term ventilation, tracheostomy or feeding tube) Surrogate decision maker: Gisel Remy (sister) Smoking packs per day: 1 Smoking cigarettes per day: 20.0 Years smoked: 15 Smoking pack-years: 15.00 Smoking status: Former smoker Tobacco type: cigarettes Alcohol intake: former Substance use: never Lack of Transportation: No Lack of Food: Never True Current Housing: I Have Housing Concerned About Future Housing: No Difficulty Paying Gas/Electric Bills: No Difficulty Paying for Meds: No Currently Unemployed: No Education: High School Diploma/GED Difficulty w/ Childcare or Family Care: No Spiritual care concerns: No Meds Home Medications and Allergies Home Medications ?Medication ?Instructions ?Recorded ?Confirmed ?Type furosemide 20 mg tablet 20 mg PO DAILY 10/28/22 07/15/25 History lisinopril 10 mg tablet 10 mg PO DAILY 10/28/22 07/15/25 History metformin 500 mg tablet 1,000 mg PO BID 10/28/22 07/15/25 History pravastatin 20 mg tablet 20 mg PO DAILY 10/28/22 07/15/25 History rivaroxaban 20 mg tablet (Xarelto) 20 mg PO HS 10/28/22 07/15/25 History spironolactone 25 mg tablet 25 mg PO EVERY OTHER DAY 10/28/22 07/15/25 History spironolactone 25 mg tablet 12.5 mg PO EVERY OTHER DAY 10/29/22 07/15/25 History carvedilol 25 mg tablet 12.5 mg (1/2 x 25 mg) PO BID #30 10/31/22 07/15/25 Rx tabs amiodarone 200 mg tablet (Pacerone) 200 mg PO Q24H 07/15/25 07/15/25 History blood sugar diagnostic (OneTouch 07/15/25 07/15/25 History Verio test strips) glipizide 10 mg tablet 10 mg PO DAILY 07/15/25 07/15/25 History Allergies Allergy/AdvReac Type Severity Reaction Status Date / Time No Known Allergies Allergy Unknown Verified 07/15/25 02:21 Vital Signs Vital Signs - 24 hr 07/14/25 20:04 07/14/25 20:17 07/14/25 21:09 Temperature 98.9 F Pulse Rate 119 H 121 H Respiratory Rate 31 H Blood Pressure 125/101 H Pulse Oximetry 95 96 Oxygen Delivery Room Air Room Air Exam Narrative: Weight 188.6 kg BMI 53.4 Const: Other: Morbidly obese, acutely ill-appearing, disheveled HENMT: Other: Mucous membranes are dry, crowded posterior oropharynx, no oral pharyngeal erythema, head is normocephalic atraumatic Eyes: Other: Pupils are equal and reactive, no scleral icterus, no conjunctival pallor Neck: Other: Large neck circumference, no lymphadenopathy, trachea midline Resp: Other: Mildly tachypneic, clear to auscultation bilaterally, no increased work of breathing Cardio: Other: Sinus tachycardia, 2+ bilateral radial and pedal pulses, no murmur, no JVD GI: Other: Soft, nontender, obese, normoactive bowel sounds : Other: Uncircumcised male Correa catheter present, erythematous moist rash bilateral inguinal folds and pannus folds, significant erythema to bilateral scrotum will with ulceration to the right scrotum with eschar (please see nursing documentation for photos in measurements) 250 mL of tea-colored urine catheter bag Urinary Catheter: Urinary Catheter: patent and draining Skin: Other: Candidiasis noted to pannus folds and bilateral inguinal folds, right buttock erythema that is blanchable and extend extending down into the posterior upper thigh with associated skin shearing, and as a ulcer of the left elbow with overlying eschar unable to stage, right scrotal wound Neuro: Other: Alert oriented to person place and time, speech is clear, no facial asymmetry, no localizing neurologic deficits noted the generalized weakness of the extremities, sensation is intact, patient reports hallucinations Extrem: Other: No pitting edema or cyanosis, marked bruising to the right medial humerus down into the ventral forearm, 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, 2/5 straight leg strength on the left, 1 out of 5 strength on the right Psych: Other: Appropriate mood and affect, pleasant and cooperative, fair judgment and insight, visual hallucinations reported prior to arrival to the ER patient is not hallucinating currently H&P: Results Labs Labs: Laboratory Tests 07/14/25 20:36 07/14/25 20:36 07/14/25 07/14/25 20:36 20:55 WBC 26.2 H RBC 4.89 Hgb 15.3 Hct 47.7 MCV 97.5 MCH 31.3 MCHC 32.1 RDW 14.5 Plt Count 270 MPV 11.6 H Immature Gran % (Auto) 1.5 H Neut % (Auto) 91.7 H Lymph % (Auto) 2.2 L Real % (Auto) 4.4 Eos % (Auto) 0.0 Baso % (Auto) 0.2 Lymph # (Auto) 0.58 L Real # (Auto) 1.2 H Eos # (Auto) 0.0 Baso # (Auto) 0.1 Abs Immat Gran (auto) 0.40 H Absolute Neuts (auto) 24.0 H Absolute Nucleated RBC 0.000 Nucleated RBC % 0.0 PT 15.1 H INR 1.2 APTT 30.8 VBG pH 7.273 L VBG pCO2 42.9 VBG pO2 < 27.0 L VBG HCO3 19.4 L O2 Delivery Device Room air O2 Liters/Min 0.0 FiO2 21 Sodium 132 L Potassium 6.6 H* Chloride 99 Carbon Dioxide 18 L Anion Gap 15 H BUN 54 H D Creatinine 2.07 H Estim Creat Clear Calc 53 Estimated GFR 32 L Glucose 318 H POC Capillary Glucose 272 H Lactic Acid 4.7 H* Calcium 9.1 Phosphorus 7.8 H Magnesium 2.1 Total Bilirubin 1.6 H AST 1867 H ALT 437 H Alkaline Phosphatase 85 Total Creatine Kinase > 63636 H Troponin I 0.098 H* NT-Pro-B Natriuret Pep 1310 H Total Protein 6.5 Albumin 3.9 Lipase 182 TSH (Reflex) 2.180 Ethyl Alcohol < 10 Influenza A (RT-PCR) Negative Influenza B (RT-PCR) Negative RSV (RT-PCR) Negative SARS-CoV-2 RNA (RT-PCR) Negative Chest x-ray: Personally reviewed interpreted demonstrated no acute cardiopulmonary process but chronic cardiomegaly EKG personally reviewed interpreted demonstrated sinus tachycardia with peaked T-wave left axis deviation and interventricular conduction delay QTC 449 CT of the brain, cervical spine, elbow, shoulder x-ray and wrist x-ray all reviewed. Per stat read interpretation no acute deformity of cervical spine and no acute intercranial process. Assessment and Plan Assessment and plan (1) Rhabdomyolysis: Qualifiers: Rhabdomyolysis type: non-traumatic Qualified Code(s): M62.82 - Rhabdomyolysis Code(s): M62.82 - Rhabdomyolysis Status: Acute (2) Acute kidney injury: Code(s): N17.9 - Acute kidney failure, unspecified Status: Acute (3) Acute hyperkalemia: Code(s): E87.5 - Hyperkalemia Status: Acute (4) Sepsis: Qualifiers: Sepsis type: sepsis due to unspecified organism Sepsis acute organ dysfunction status: with acute organ dysfunction Severe sepsis acute organ dysfunction type: acute renal failure Acute renal failure type: unspecified Severe sepsis shock status: without septic shock Qualified Code(s): A41.9 - Sepsis, unspecified organism; R65.20 - Severe sepsis without septic shock; N17.9 - Acute kidney failure, unspecified Code(s): A41.9 - Sepsis, unspecified organism Status: Acute (5) Type 2 diabetes mellitus with hyperglycemia, without long-term current use of insulin: Code(s): E11.65 - Type 2 diabetes mellitus with hyperglycemia Status: Acute (6) Lactic acidosis: Code(s): E87.20 - Acidosis, unspecified Status: Acute (7) Chronic anticoagulation: Code(s): Z79.01 - FPC (current) use of anticoagulants Status: Acute (8) Transaminitis: Code(s): R74.01 - Elevation of levels of liver transaminase levels Status: Acute (9) Leukocytosis: Qualifiers: Leukocytosis type: unspecified Qualified Code(s): D72.829 - Elevated white blood cell count, unspecified Code(s): D72.829 - Elevated white blood cell count, unspecified Status: Acute (10) Chronic hyponatremia: Code(s): E87.1 - Hypo-osmolality and hyponatremia Status: Acute (11) Hematoma of right upper extremity: Code(s): S40.021A - Contusion of right upper arm, initial encounter Status: Acute (12) Decubital ulcer: Qualifiers: Pressure injury location: unspecified location Pressure injury stage: unstageable Qualified Code(s): L89.95 - Pressure ulcer of unspecified site, unstageable Code(s): L89.90 - Pressure ulcer of unspecified site, unspecified stage Status: Acute (13) Nonischemic cardiomyopathy: Code(s): I42.8 - Other cardiomyopathies Status: Acute (14) Obstructive sleep apnea: Code(s): G47.33 - Obstructive sleep apnea (adult) (pediatric) Status: Acute Plan Acute kidney injury secondary to rhabdomyolysis resulting in acute hyperkalemia with peaked T-waves on EKG. Rhabdomyolysis due to prolonged time down. Patient received 3 L IV fluid bolus in the ER. Initial CK greater than 16,000. Patient has had 250 mL of urine output in the Correa catheter. Will monitor strict I&O's. Patient received sodium bicarb, calcium, Lokelma, insulin and dextrose in the ER. Will repeat electrolyte panel with 6 hour troponin. Will also repeat CK, check magnesium and phosphorus. Patient also has associated lactic acidosis likely due to a combination of his rhabdomyolysis and possible underlying sepsis. Will repeat lactic acid level with labs as well. Patient does have associated metabolic acidosis noted by VBG with acidosis being multifactorial. Will start the patient on sodium bicarb infusion and monitor strict I&O's. Will trend CK. Will hold patient's home statin therapy. Will hold the patient's home diuretic and LAURY inhibitor. Will need to monitor fluid status closely given patient's history of nonischemic cardiomyopathy. Currently the patient still appears intervascular early volume depleted. Given hyperkalemia will place patient on consistent carbohydrate low potassium diet. Will add moderate dose sliding scale insulin with Accu-Cheks a.c. HS and hypoglycemia protocol as needed. Will hold the patient's metformin given his acute lactic acidosis. Patient has transaminitis and hyperbilirubinemia likely secondary to rhabdomyolysis and or sepsis. Patient does not have any abdominal pain or GI symptoms to suggest acute hepatitis or gallbladder pathology. Will trend enzymes with repeat CMP in a.m.. Patient meets sepsis criteria with tachycardia, tachypnea and leukocytosis. Exact source of infection is not known. Leukocytosis could be due to look moist reaction verses acute infection. He urine does not appear to be acutely infected. He does have open wounds but they do not have any obvious surrounding erythema to suggest acute infection. Symptoms could simply be due to combination of volume depletion and respiratory alkalosis. However will cover patient with empiric antibiotic therapy with cefepime and vancomycin while awaiting blood culture results. Wound Care has been consulted for management patient multiple wounds. Patient does have a large hematoma to right upper extremity but no evidence of compartment syndrome or marked pain. Will monitor neurovascular checks for the next 24-48 hours. Patient may need CPAP therapy or supplemental oxygen but is currently maintaining O2 sats at this time. Will he would benefit from polysomnogram as outpatient to further delineate/treat his underlying obstructive sleep apnea. MEDICAL DECISION MAKING NARRATIVE -Spoke with the ED provider in detail regarding patient's evaluation, workup and management -Patient seen and examined at bedside -Collaborated with patient's nurse at the bedside in detail and addressed all concerns -Labs, electrolytes, radiology, investigations and test results personally reviewed and interpreted unless otherwise specified -ED/Consult/Nursing/Ancilliary notes on the chart reviewed and appreciated -Spoke with patient at bedside and diagnosis and plan of care was discussed. All questions answered. Quality VTE Prophylaxis VTE prophylaxis: pharmacologic ordered (Continue home Xarelto) Hospitalist [facility] Advance Care Plan I have confirmed that the patient's Advanced Care Plan is present, code status is documented, or surrogate decision maker is listed in patient medical record.: Yes Medication Reconciliation I have utilized all available resources to obtain, update and review the patients current medications (includes all prescriptions, OTC, herbals, cannabis, and nutritional supplements).: Yes
[2025-07-14] MEDS: CEFEPIME 2 GM in SODIUM CHLORIDE 0.9% IV 50 ML 100 ML IVPB (23:09)
[2025-07-14] MEDS: CALCIUM GLUCONATE 1,000 MG/10 ML VIAL 2000 MG IV PUSH (23:10)
[2025-07-14] MEDS: DEXTROSE 50% 25 GM/50 ML SYRINGE IV PUSH (23:10)
[2025-07-14] MEDS: SODIUM BICARBONATE 8.4% 50 MEQ/50 ML SYRINGE IV PUSH (23:10)
[2025-07-14] MEDS: INSULIN HUMAN REGULAR (*BKC) 100 UNITS/ML 10 UNITS IV PUSH (23:12)
[2025-07-14 23:29] LABS: Add Urine Microscopic? YES; Appearance Urine Cloudy (Clear); Glucose Urine UA Negative (Negative); Leukocyte Esterase Ur Trace LEU/UL (Negative); Nitrate Urine Negative (Negative); Non Pathogenic Casts 0-2; Specific Grav Ur 1.027 (1.001-1.035)
[2025-07-14 23:38] LABS: Cannabinoid Screen Urine Negative (Negative)
[2025-07-15] VITALS (48 sets, daily range): BP systolic 80–164; BP diastolic 45–80; PULSE 80–98; RESP 16–28; TEMP 14–37; O2SAT 92–98; BMI 54.9; BMI 53.7
[2025-07-15] MEDS: VANCOMYCIN 2,000 MG/NS 500 ML 2,000 MG/500 ML BAG 250 MG IVPB (00:16)
[2025-07-15 00:40] LABS: Troponin I 0.098 ng/mL (0.000-0.034)
--- NOTE | 2025-07-15 01:37 | WNDPHOTO ---
Addendum entered by Linda Hamilton RN 07/15/25 02:03: RIGHT BUTTOCKS Original Note: PHOTO ONLY - See Nursing Notes and/ or assessments for documentation.
--- NOTE | 2025-07-15 01:45 | WNDPHOTO ---
Addendum entered by Linda Hamilton RN 07/15/25 02:03: SCROTUM Original Note: PHOTO ONLY - See Nursing Notes and/ or assessments for documentation.
--- NOTE | 2025-07-15 01:47 | WNDPHOTO ---
Addendum entered by Linda Hamilton RN 07/15/25 02:03: RIGHT ELBOW Original Note: PHOTO ONLY - See Nursing Notes and/ or assessments for documentation.
[2025-07-15] MEDS: SODIUM BICARBONATE 8.4% 100 MEQ in WATER, STERILE FOR INJECTION 1,000 ML 150 MEQ IV CONT ×2 (01:58→09:41)
--- NOTE | 2025-07-15 02:07 | ADMGEN ---
This patient, Joe Henriquez, was admitted to IMU Room 207-01. Patient/family oriented to hospital policies and general routines including ID bracelet, bed and alarms, visiting hours, pain management, procedures, bathroom and other care routines, personal items, smoking policy, room service/diet, and visiting hours. Information on how to activate the Rapid Response Team has been discussed. Patient/Family are encouraged to report perceived risks to care and to ask questions if they do not understand what they are told or what they should do.
[2025-07-15 03:03] LABS: Hemoglobin A1C 6.3 % (<5.7)
[2025-07-15 03:07] LABS: Alanine Aminotransferase 435 U/L (6-50); Albumin Level 3.4 g/dL (3.5-5.1); Alkaline Phosphatase 67 U/L (38-126); Anion Gap 9 mmol/L (4-12); Bilirubin,Total 1.7 mg/dL (0.2-1.3); Blood Urea Nitrogen 60 mg/dL (9-20); Calcium 8.5 mg/dL (8.4-10.2); Carbon Dioxide 20 mmol/L (22-30); Chloride 101 mmol/L (98-107); Estimated CRCL calculation 53 ml/min; Estimated Glomerular Filt Rate 31; Glucose 232 mg/dL (65-110); Potassium 6.1 mmol/L (3.4-5.0); Sodium 130 mmol/L (137-145); Total Protein 6.3 g/dL (6.3-8.2)
[2025-07-15] MEDS: ALBUTEROL SULFATE NEB 2.5 MG/3 ML INH 15 MG INHALATION (03:24)
[2025-07-15] MEDS: AMIODARONE HCL 200 MG TABLET PO (03:29)
[2025-07-15 03:34] LABS: Aspartate Amino Transferase 1655 U/L (17-59)
[2025-07-15 03:55] LABS: Creatine Kinase > 16000 U/L (55-170)
[2025-07-15 04:01] LABS: MRSA (PCR) NOT DETECTED (NOT DETECTE)
[2025-07-15] MEDS: CALCIUM GLUCONATE 1,000 MG/10 ML VIAL 1000 MG IV PUSH (04:04)
[2025-07-15] MEDS: INSULIN HUMAN REGULAR (*BKC) 100 UNITS/ML 10 UNITS IV PUSH ×3 (04:06→09:23)
[2025-07-15 04:10] LABS: Hematocrit 42.9 % (42.0-52.0); Hemoglobin 13.9 g/dL (14.0-18.0); Immature Granulocyte Percent A 0.9 % (0-0.5); Lymphocytes Absolute Auto 0.83 K/mm3 (0.9-3.2); Mean Corpuscular HGB Conc 32.4 g/dl (32-36); Mean Corpuscular Hemoglobin 31.6 pg (26-34); Mean Corpuscular Volume 97.5 fl (80-100); Nucleated Red Blood Cells Absolute Auto 0.000 K/mm3 (0.0-0.012); Nucleated Red Blood Cells Perc 0.0 % (0.0-0.2); Platelet Count Result 243 k/mm3 (150-375); Red Blood Count 4.40 M/mm3 (4.6-6.20); White Blood Count 23.2 K/mm3 (4.5-10.0)
[2025-07-15] MEDS: SODIUM ZIRCONIUM CYCLOSILICATE 10 GM POWD.PACK PO ×3 (05:05→09:53)
[2025-07-15 08:32] LABS: Anion Gap 10 mmol/L (4-12); Blood Urea Nitrogen 65 mg/dL (9-20); Calcium 8.6 mg/dL (8.4-10.2); Carbon Dioxide 23 mmol/L (22-30); Chloride 99 mmol/L (98-107); Estimated CRCL calculation 45 ml/min; Estimated Glomerular Filt Rate 26; Glucose 212 mg/dL (65-110); Potassium 6.4 mmol/L (3.4-5.0); Sodium 132 mmol/L (137-145)
[2025-07-15] MEDS: ALBUTEROL SULFATE NEB 2.5 MG/3 ML INH INHALATION (09:01)
--- NOTE | 2025-07-15 09:02 | P.PNIM_ITS ---
Progress Note: A&P Assessment and Plan (1) Rhabdomyolysis: Qualifiers: Rhabdomyolysis type: non-traumatic Qualified Code(s): M62.82 - Rhabdomyolysis Code(s): M62.82 - Rhabdomyolysis Status: Acute Assessment and Plan: due to prolonged time down s/p 3L IV fluids in the ER continue IV fluids CK > 16k on admission and this AM Nephrology consulted (2) Acute kidney injury: Code(s): N17.9 - Acute kidney failure, unspecified Status: Acute Assessment and Plan: due to acute rhabdomyolysis BUN and Cr on admission BUN and Cr on AM labs sodium bicarb drip consult nephrology (3) Acute hyperkalemia: Code(s): E87.5 - Hyperkalemia Status: Acute Assessment and Plan: K 6.6 on arrival, Patient received sodium bicarb, calcium, Lokelma, insulin and dextrose in the ER and again overnight in the IMU repeat K this AM 6.4 Telemetry order placed for Lokelma, albuterol, insulin and dextrose, repeat BMP in 1 hour Nephrology consulted Monitor BMP closely (4) Sepsis: Qualifiers: Acute renal failure type: unspecified Sepsis acute organ dysfunction status: with acute organ dysfunction Sepsis type: sepsis due to unspecified organism Severe sepsis acute organ dysfunction type: acute renal failure Severe sepsis shock status: without septic shock Qualified Code(s): A41.9 - Sepsis, unspecified organism; R65.20 - Severe sepsis without septic shock; N17.9 - Acute kidney failure, unspecified Code(s): A41.9 - Sepsis, unspecified organism Status: Acute Assessment and Plan: Patient meets sepsis criteria with tachycardia, tachypnea and leukocytosis. Exact source of infection is not known. Leukocytosis could be due to leukemoid reaction verses acute infection. He urine does not appear to be acutely infected. He does have open wounds but they do not have any obvious surrounding erythema to suggest acute infection. Symptoms could simply be due to combination of volume depletion and respiratory alkalosis. 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 Status: Acute Assessment and Plan: continue home Xarelto (8) Transaminitis: Code(s): R74.01 - Elevation of levels of liver transaminase levels Status: Acute Assessment and Plan: most likely due to rhabdomyolysis or possible sepsis hold home statin AM labs (9) Leukocytosis: Qualifiers: Leukocytosis type: unspecified Qualified Code(s): D72.829 - Elevated white blood cell count, unspecified Code(s): D72.829 - Elevated white blood cell count, unspecified Status: Acute Assessment and Plan: s/p IV vancomycin and cefepime f/u urine cultures f/u blood cultures start IV roecphin AM labs (10) Chronic hyponatremia: Code(s): E87.1 - Hypo-osmolality and hyponatremia Status: Acute Assessment and Plan: IV fluids monitor labs (11) Hematoma of right upper extremity: Code(s): S40.021A - Contusion of right upper arm, initial encounter Status: Acute Assessment and Plan: Monitor neuro checks pain control (12) Decubital ulcer: Qualifiers: Pressure injury location: unspecified location Pressure injury stage: unstageable Qualified Code(s): L89.95 - Pressure ulcer of unspecified site, unstageable Code(s): L89.90 - Pressure ulcer of unspecified site, unspecified stage Status: Acute Assessment and Plan: wound care consult (13) Nonischemic cardiomyopathy: Code(s): I42.8 - Other cardiomyopathies Status: Acute Assessment and Plan: hold home diuretics and ACEI due to KAITLIN and hyperkalemia monitor fluid volume status closely (14) Obstructive sleep apnea: Code(s): G47.33 - Obstructive sleep apnea (adult) (pediatric) Status: Acute Assessment and Plan: Patient may need CPAP therapy or supplemental oxygen but is currently maintaining O2 sats at this time. Will he would benefit from polysomnogram as outpatient to further delineate/treat his underlying obstructive sleep apnea. Subjective Date/time seen: 07/15/25 09:02 Interval history: 69 year old male with PMH of morbid obesity with BMI greater than 50, diastolic heart failure, paroxysmal atrial fibrillation, type 2 diabetes mellitus and obstructive sleep apnea who presented to the ER from home via EMS after being found on the ground. He was admitted with acute rhabdomyolysis. hyperkalemia, KAITLIN, possible sepsis due to unknown source, leukocytosis, lactic acidosis and metabolic acidosis. Patient seen and examined. Patient lying in bed, no signs of acute distress. Patient denies acute pain. Patient was treated for hyperkalemia again overnight. Repeat K level this AM was 6.4. Orders given for IV insulin, IV dextrrose, albuterol and lokelma. Nephrology consulted and discussed with Dr. Agee. Continue IV bicarb drip. Repeat CK levels ordered. Repeat labs ordered. Follow up on urine cultures and blood cultures. No clear signs of infection at this time. Switch IV Vancomycin and cefepime to IV rocephin. Review of Systems Review of Systems: 12 systems were reviewed with pertinent positives and negatives per HPI. Except as documented in the HPI, all other systems were reviewed and are negative. Exam Narrative: Weight 188.6 kg BMI 53.4 Const: Other: Morbidly obese, acutely ill-appearing, disheveled HENMT: Other: Mucous membranes are dry, crowded posterior oropharynx, no oral pharyngeal erythema, head is normocephalic atraumatic Eyes: Other: Pupils are equal and reactive, no scleral icterus, no conjunctival pallor Neck: Other: Large neck circumference, no lymphadenopathy, trachea midline Resp: Other: clear to auscultation bilaterally, no increased work of breathing Cardio: Other: RRR, 2+ bilateral radial and pedal pulses, no murmur, no JVD GI: Other: Soft, nontender, obese, normoactive bowel sounds : Other: Uncircumcised male Correa catheter present, erythematous moist rash bilateral inguinal folds and pannus folds, significant erythema to bilateral scrotum will with ulceration to the right scrotum with eschar (please see nursing documentation for photos in measurements) Urinary Catheter: Urinary Catheter: patent and draining Skin: Other: Candidiasis noted to pannus folds and bilateral inguinal folds, right buttock erythema that is blanchable and extend extending down into the posterior upper thigh with associated skin shearing, and as a ulcer of the left elbow with overlying eschar unable to stage, right scrotal wound Neuro: Other: Alert oriented to person place and time, speech is clear, no facial asymmetry, no localizing neurologic deficits noted the generalized weakness of the extremities, sensation is intact, patient reports hallucinations Extrem: Other: No pitting edema or cyanosis, marked bruising to the right medial humerus down into the ventral forearm, 4/5 beef ribber strength bilateral, 2/5 straight leg strength on the left leg, 1 out of 5 strength on the right leg Psych: Other: Appropriate mood and affect, pleasant and cooperative, fair judgment and insight, visual hallucinations reported prior to arrival to the ER patient is not hallucinating currently Objective Data Vital Signs Vital Signs: Vital Signs - 24 hr 07/14/25 20:04 07/14/25 20:17 07/14/25 21:09 Temperature 98.9 F Pulse Rate 119 H 121 H Respiratory Rate 31 H Blood Pressure 125/101 H Pulse Oximetry 95 96 Oxygen Delivery Room Air Room Air 07/14/25 22:43 07/14/25 22:45 07/14/25 22:47 Temperature Pulse Rate 96 96 94 Respiratory Rate 27 H 30 H 29 H Blood Pressure Pulse Oximetry 93 94 Oxygen Delivery 07/14/25 23:00 07/14/25 23:01 07/14/25 23:37 Temperature Pulse Rate 93 96 97 Respiratory Rate 29 H 31 H 21 H Blood Pressure 144/70 H Pulse Oximetry 94 94 Oxygen Delivery 07/14/25 23:38 07/14/25 23:45 07/15/25 00:08 Temperature Pulse Rate 100 98 96 Respiratory Rate 31 H 30 H 24 H Blood Pressure 137/77 Pulse Oximetry 94 94 Oxygen Delivery 07/15/25 01:41 07/15/25 02:21 07/15/25 02:51 Temperature 98.5 F Pulse Rate 96 98 Respiratory Rate 24 H 17 Blood Pressure 137/77 135/70 Pulse Oximetry 94 92 Oxygen Delivery Room Air 07/15/25 03:18 07/15/25 03:25 07/15/25 03:29 Temperature 98.0 F Pulse Rate 89 87 86 Respiratory Rate 18 22 H Blood Pressure 134/57 L Pulse Oximetry 94 Oxygen Delivery 07/15/25 04:00 07/15/25 04:00 07/15/25 06:00 Temperature Pulse Rate 91 89 Respiratory Rate Blood Pressure Pulse Oximetry Oxygen Delivery Room Air 07/15/25 08:00 Temperature 97.6 F Pulse Rate 90 Respiratory Rate 22 H Blood Pressure 121/67 Pulse Oximetry 94 Oxygen Delivery Intake/Output Intake/Output: Intake & Output 07/12/25 07/13/25 07/14/25 07/15/25 23:59 23:59 23:59 23:59 Intake Total 3050 240 Output Total 900 Balance 3050 -660 Meds/Results Medications: Active Medications Generic Name Dose Route Start Last Admin Trade Name Freq PRN Reason Stop Dose Admin Amiodarone HCl 200 mg 07/15/25 02:30 07/15/25 03:29 Amiodarone Hcl 200 Mg Tablet PO 200 mg DAILY SALMA Administration Carvedilol 12.5 mg 07/15/25 09:00 Carvedilol 12.5 Mg Tablet PO BID SALMA Dextrose 12.5 gm 07/15/25 01:20 Dextrose 50% 25 Gm/50 Ml Syringe IV PUSH PRN PRN Hypoglycemia Protocol Glucagon 1 mg 07/15/25 01:20 Glucagon For Inj 1 Mg Vial IM PRN PRN Hypoglycemia Protocol Glucose 15 gm 07/15/25 01:20 Glucose Oral Gel 15 Gm Of Glucse In 37.5 Gm Tube PO PRN PRN Hypoglycemia Protocol Dextrose 1,000 mls @ 100 mls/hr 07/15/25 01:20 Dextrose 5% 1,000 Ml IVPB PRN PRN Hypoglycemia Protocol Sodium Bicarbonate 100 meq/ 1,100 mls @ 150 mls/hr 07/15/25 02:00 07/15/25 01:58 Sterile Water IV CONT 150 mls/hr .Q7H20M SALMA Administration Calcium Gluconate 1,000 mg in 50 mls @ 100 mls/hr 07/15/25 08:50 Calcium Gluc 1,000 Mg/Ns 50 Ml IVPB 07/15/25 09:19 ONCE STA Insulin Aspart 3 - 6 units 07/15/25 08:00 Insulin Aspart (*Bkc) 100 Units/Ml SUB-Q TIDWM [facility] Protocol Insulin Aspart 1 - 3 units 07/15/25 21:00 Insulin Aspart (*Bkc) 100 Units/Ml SUB-Q HS [facility] Protocol Rivaroxaban 20 mg 07/15/25 17:00 Rivaroxaban 20 Mg Tablet PO DAILY@1700 [facility] Rivaroxaban 20 mg 07/15/25 21:00 Rivaroxaban 20 Mg Tablet PO HS [facility] Sodium Zirconium Cyclosilicate 10 gm 07/15/25 10:00 Sodium Zirconium Cyclosilicate 10 Gm Powd.Pack PO TID@1000,1500,2200 SALMA Vancomycin HCl 1 each 07/14/25 22:53 Vancomycin For Acute Kidney Injury IVPB PRN PRN Vancomycin Protocol Radiology Results: ITS Impressions Cervical Spine CT 07/15/25 07:00 IMPRESSION: 1. No acute abnormality of the cervical spine. 2: Severe cervical spondylosis. Head CT 07/15/25 07:03 IMPRESSION: 1. No acute intracranial abnormality. Chest X-Ray 07/15/25 07:37 Impression: 1: Right basilar atelectasis. 2: Moderate cardiomegaly with pulmonary vascular congestion. 3: Possible nondisplaced left midclavicular fracture. Shoulder X-Ray 07/15/25 07:39 Impression: 1: No acute fracture. Wrist X-Ray 07/15/25 07:40 Impression: 1: No acute fracture. Elbow X-Ray 07/15/25 07:41 Impression: 1: No acute fracture. Labs Labs: Laboratory Results - last 24 hr 07/14/25 07/14/25 07/14/25 20:36 20:55 22:59 WBC 26.2 H RBC 4.89 Hgb 15.3 Hct 47.7 MCV 97.5 MCH 31.3 MCHC 32.1 RDW 14.5 Plt Count 270 MPV 11.6 H Immature Gran % (Auto) 1.5 H Neut % (Auto) 91.7 H Lymph % (Auto) 2.2 L [place] % (Auto) 4.4 Eos % (Auto) 0.0 Baso % (Auto) 0.2 Lymph # (Auto) 0.58 L [place] # (Auto) 1.2 H Eos # (Auto) 0.0 Baso # (Auto) 0.1 Abs Immat Gran (auto) 0.40 H Absolute Neuts (auto) 24.0 H Absolute Nucleated RBC 0.000 Nucleated RBC % 0.0 PT 15.1 H INR 1.2 APTT 30.8 VBG pH 7.273 L VBG pCO2 42.9 VBG pO2 < 27.0 L VBG HCO3 19.4 L O2 Delivery Device Room air O2 Liters/Min 0.0 FiO2 21 Sodium 132 L Potassium 6.6 H* Chloride 99 Carbon Dioxide 18 L Anion Gap 15 H BUN 54 H D Creatinine 2.07 H Estim Creat Clear Calc 53 Estimated GFR 32 L Glucose 318 H POC Capillary Glucose 272 H 259 H Hemoglobin A1c Lactic Acid 4.7 H* Calcium 9.1 Phosphorus 7.8 H Magnesium 2.1 Total Bilirubin 1.6 H AST 1867 H ALT 437 H Alkaline Phosphatase 85 Total Creatine Kinase > 33871 H Troponin I 0.098 H* NT-Pro-B Natriuret Pep 1310 H Total Protein 6.5 Albumin 3.9 Lipase 182 TSH (Reflex) 2.180 Urine Color Urine Appearance Urine pH Ur Specific [place] Urine Protein Urine Glucose (UA) Urine Ketones Ur Blood (Man) Urine Nitrate Urine Bilirubin Urine Urobilinogen Leukocyte Esterase Rfl Urine RBC Urine WBC Ur Squamous Epith Cells Urine Bacteria Urine Casts Nasal MRSA (PCR) Urine Opiates Screen Urine Methadone Screen Ur Barbiturates Screen Ur Phencyclidine Scrn Ur Amphetamine Screen U Benzodiazepines Scrn Urine Cocaine Screen U Cannabinoids Screen Ethyl Alcohol < 10 Influenza A (RT-PCR) Negative Influenza B (RT-PCR) Negative RSV (RT-PCR) Negative SARS-CoV-2 RNA (RT-PCR) Negative 07/14/25 07/14/25 07/15/25 23:12 23:57 00:10 WBC RBC Hgb Hct MCV MCH MCHC RDW Plt Count MPV Immature Gran % (Auto) Neut % (Auto) Lymph % (Auto) [place] % (Auto) Eos % (Auto) Baso % (Auto) Lymph # (Auto) [place] # (Auto) Eos # (Auto) Baso # (Auto) Abs Immat Gran (auto) Absolute Neuts (auto) Absolute Nucleated RBC Nucleated RBC % PT INR APTT VBG pH VBG pCO2 VBG pO2 VBG HCO3 O2 Delivery Device O2 Liters/Min FiO2 Sodium Potassium Chloride Carbon Dioxide Anion Gap BUN Creatinine Estim Creat Clear Calc Estimated GFR Glucose POC Capillary Glucose 251 H Hemoglobin A1c Lactic Acid 2.9 H Calcium Phosphorus Magnesium Total Bilirubin AST ALT Alkaline Phosphatase Total Creatine Kinase Troponin I 0.098 H* NT-Pro-B Natriuret Pep Total Protein Albumin Lipase TSH (Reflex) Urine Color Dark yellow Urine Appearance Cloudy H Urine pH 5.0 Ur Specific [place] 1.027 Urine Protein 2+ H Urine Glucose (UA) Negative Urine Ketones Trace H Ur Blood (Man) 3+ H Urine Nitrate Negative Urine Bilirubin 2+ H Urine Urobilinogen 1.0 Leukocyte Esterase Rfl Trace H Urine RBC 21-50 H Urine WBC 0-5 Ur Squamous Epith Cells None seen Urine Bacteria None seen Urine Casts 0-2 Nasal MRSA (PCR) Urine Opiates Screen Negative Urine Methadone Screen Negative Ur Barbiturates Screen Negative Ur Phencyclidine Scrn Negative Ur Amphetamine Screen Negative U Benzodiazepines Scrn Negative Urine Cocaine Screen Negative U Cannabinoids Screen Negative Ethyl Alcohol Influenza A (RT-PCR) Influenza B (RT-PCR) RSV (RT-PCR) SARS-CoV-2 RNA (RT-PCR) 07/15/25 07/15/25 07/15/25 02:36 02:37 02:42 WBC 23.2 H RBC 4.40 L Hgb 13.9 L Hct 42.9 MCV 97.5 MCH 31.6 MCHC 32.4 RDW 14.6 H Plt Count 243 MPV 11.7 H Immature Gran % (Auto) 0.9 H Neut % (Auto) 87.1 H Lymph % (Auto) 3.6 L [place] % (Auto) 8.2 Eos % (Auto) 0.0 Baso % (Auto) 0.2 Lymph # (Auto) 0.83 L [place] # (Auto) 1.9 H Eos # (Auto) 0.0 Baso # (Auto) 0.1 Abs Immat Gran (auto) 0.21 H Absolute Neuts (auto) 20.2 H Absolute Nucleated RBC 0.000 Nucleated RBC % 0.0 PT INR APTT VBG pH VBG pCO2 VBG pO2 VBG HCO3 O2 Delivery Device O2 Liters/Min FiO2 Sodium 130 L Potassium 6.1 H* Chloride 101 Carbon Dioxide 20 L Anion Gap 9 BUN 60 H Creatinine 2.11 H Estim Creat Clear Calc 53 Estimated GFR 31 L Glucose 232 H POC Capillary Glucose Hemoglobin A1c 6.3 H Lactic Acid 2.7 H Calcium 8.5 Phosphorus Magnesium Total Bilirubin 1.7 H AST 1655 H ALT 435 H Alkaline Phosphatase 67 Total Creatine Kinase > 30050 H Troponin I NT-Pro-B Natriuret Pep Total Protein 6.3 Albumin 3.4 L Lipase TSH (Reflex) Urine Color Urine Appearance Urine pH Ur Specific [place] Urine Protein Urine Glucose (UA) Urine Ketones Ur Blood (Man) Urine Nitrate Urine Bilirubin Urine Urobilinogen Leukocyte Esterase Rfl Urine RBC Urine WBC Ur Squamous Epith Cells Urine Bacteria Urine Casts Nasal MRSA (PCR) Not detected Urine Opiates Screen Urine Methadone Screen Ur Barbiturates Screen Ur Phencyclidine Scrn Ur Amphetamine Screen U Benzodiazepines Scrn Urine Cocaine Screen U Cannabinoids Screen Ethyl Alcohol Influenza A (RT-PCR) Influenza B (RT-PCR) RSV (RT-PCR) SARS-CoV-2 RNA (RT-PCR) 07/15/25 07/15/25 07/15/25 04:40 05:10 07:44 WBC RBC Hgb Hct MCV MCH MCHC RDW Plt Count MPV Immature Gran % (Auto) Neut % (Auto) Lymph % (Auto) [place] % (Auto) Eos % (Auto) Baso % (Auto) Lymph # (Auto) [place] # (Auto) Eos # (Auto) Baso # (Auto) Abs Immat Gran (auto) Absolute Neuts (auto) Absolute Nucleated RBC Nucleated RBC % PT INR APTT VBG pH VBG pCO2 VBG pO2 VBG HCO3 O2 Delivery Device O2 Liters/Min FiO2 Sodium Potassium Chloride Carbon Dioxide Anion Gap BUN Creatinine Estim Creat Clear Calc Estimated GFR Glucose POC Capillary Glucose 207 H 191 H 199 H Hemoglobin A1c Lactic Acid Calcium Phosphorus Magnesium Total Bilirubin AST ALT Alkaline Phosphatase Total Creatine Kinase Troponin I NT-Pro-B Natriuret Pep Total Protein Albumin Lipase TSH (Reflex) Urine Color Urine Appearance Urine pH Ur Specific [place] Urine Protein Urine Glucose (UA) Urine Ketones Ur Blood (Man) Urine Nitrate Urine Bilirubin Urine Urobilinogen Leukocyte Esterase Rfl Urine RBC Urine WBC Ur Squamous Epith Cells Urine Bacteria Urine Casts Nasal MRSA (PCR) Urine Opiates Screen Urine Methadone Screen Ur Barbiturates Screen Ur Phencyclidine Scrn Ur Amphetamine Screen U Benzodiazepines Scrn Urine Cocaine Screen U Cannabinoids Screen Ethyl Alcohol Influenza A (RT-PCR) Influenza B (RT-PCR) RSV (RT-PCR) SARS-CoV-2 RNA (RT-PCR) 07/15/25 08:05 WBC RBC Hgb Hct MCV MCH MCHC RDW Plt Count MPV Immature Gran % (Auto) Neut % (Auto) Lymph % (Auto) [place] % (Auto) Eos % (Auto) Baso % (Auto) Lymph # (Auto) [place] # (Auto) Eos # (Auto) Baso # (Auto) Abs Immat Gran (auto) Absolute Neuts (auto) Absolute Nucleated RBC Nucleated RBC % PT INR APTT VBG pH VBG pCO2 VBG pO2 VBG HCO3 O2 Delivery Device O2 Liters/Min FiO2 Sodium 132 L Potassium 6.4 H* Chloride 99 Carbon Dioxide 23 Anion Gap 10 BUN 65 H Creatinine 2.43 H Estim Creat Clear Calc 45 Estimated GFR 26 L Glucose 212 H POC Capillary Glucose Hemoglobin A1c Lactic Acid Calcium 8.6 Phosphorus Magnesium Total Bilirubin AST ALT Alkaline Phosphatase Total Creatine Kinase Troponin I NT-Pro-B Natriuret Pep Total Protein Albumin Lipase TSH (Reflex) Urine Color Urine Appearance Urine pH Ur Specific [place] Urine Protein Urine Glucose (UA) Urine Ketones Ur Blood (Man) Urine Nitrate Urine Bilirubin Urine Urobilinogen Leukocyte Esterase Rfl Urine RBC Urine WBC Ur Squamous Epith Cells Urine Bacteria Urine Casts Nasal MRSA (PCR) Urine Opiates Screen Urine Methadone Screen Ur Barbiturates Screen Ur Phencyclidine Scrn Ur Amphetamine Screen U Benzodiazepines Scrn Urine Cocaine Screen U Cannabinoids Screen Ethyl Alcohol Influenza A (RT-PCR) Influenza B (RT-PCR) RSV (RT-PCR) SARS-CoV-2 RNA (RT-PCR) Quality VTE Prophylaxis VTE prophylaxis: pharmacologic ordered (Continue home Xarelto)
[2025-07-15] MEDS: DEXTROSE 50% 25 GM/50 ML SYRINGE IV PUSH (09:12)
--- NOTE | 2025-07-15 09:13 | ECG_ITS ---
Test Date: 2025-07-15 00:26:04 Measurements Intervals [place] Rate: 95 P: -6 NE: 180 QRS: -45 QRSD: 105 T: 65 QT: 350 QTc: 441 Interpretive Statements SINUS RHYTHM LEFT ANTERIOR FASCICULAR BLOCK BORDERLINE T WAVE ABNORMALITY- HIGH LATERAL LEADS BASELINE WANDER- V1 ABNORMAL ECG Compared to ECG 07/14/2025 20:16:16 NO SIGNIFICANT CHANGE Electronically Signed On 07-15-2025 09:51:08 CDT by Flavio Dillon D.O.
[2025-07-15] MEDS: ALBUTEROL SULFATE NEB 2.5 MG/3 ML INH 10 MG INHALATION (09:18)
[2025-07-15] MEDS: CALCIUM GLUC 1,000 MG/NS 50 ML 1,000 MG/50 ML BAG 100 MG IVPB (09:23)
[2025-07-15 10:50] LABS: Hepatitis B Surface Antigen Negative (Negative)
--- NOTE | 2025-07-15 10:55 | P.CONNP_ITS ---
Assessment and Plan Assessment and plan (1) Acute kidney injury: Code(s): N17.9 - Acute kidney failure, unspecified Status: Acute Assessment and Plan: * as noted by admission labs - creatinine of 2.07mg/dL * progressively worsening as noted by trend of labs since hospitalization began * complicated by persistent hyperkalemia unresponsive to medical therapy and declining UOP * baseline creatinine normal: * 1.16mg/dL in October 2024 (by outpatient labs by PCP) * 1.30mg/dL in October 2022 ([facility]) * multifactorial etiology: * rhabdomyolysis * LAURY-I use prior to admission * diuretic use (lasix + spironolactone) prior to admission * prerenal factors(?) * infection/early sepsis(?) * other(?) * check urine studies and renal ultrasound * ongoing trial of IVFs * remains at high risk for DIRECTOR OF ASSESSMENT/dialysis -- particularly due to #2 (see discussion below) * follow trend of repeat labs and UOP (2) Hyperkalemia: Code(s): E87.5 - Hyperkalemia Status: Acute Assessment and Plan: * recurrent since admission * poor response to medical management despite multiple rounds of therapy to date * on scheduled lokelma * suspect secondary to spironolactone use (long half life in the context of renal failure) + lisinopril use + rhabdomyolysis... * possible component of hemoysis as well(?) * may need DIRECTOR OF ASSESSMENT/dialysis to correct/stabilize (3) Rhabdomyolysis: Code(s): M62.82 - Rhabdomyolysis Status: Acute Assessment and Plan: * as noted by elevated CPK * likely related to prolonged downtime from fall * contributing to hyperkalemia and KAITLIN (4) Sepsis: Qualifiers: Acute renal failure type: unspecified Sepsis acute organ dysfunction status: with acute organ dysfunction Sepsis type: sepsis due to unspecified organism Severe sepsis acute organ dysfunction type: acute renal failure S evere sepsis shock status: without septic shock Qualified Code(s): A41.9 - Sepsis, unspecified organism; R65.20 - Severe sepsis without septic shock; N17.9 - Acute kidney failure, unspecified Code(s): A41.9 - Sepsis, unspecified organism Status: Acute Assessment and Plan: * suspected due to elevated WBC, lactic acidosis, tachycardia, tachypnea on admission * no clear source at this time * follow culture data * follow hemodynamics * on empiric antibiotics (5) Atrial fibrillation and flutter: Code(s): I48.91 - Unspecified atrial fibrillation; I48.92 - Unspecified atrial flutter Status: Chronic Assessment and Plan: * paroxysmal in nature * on amiodarone * on anticoagulation * xarelto on hold at this time (6) Transaminitis: Code(s): R74.01 - Elevation of levels of liver transaminase levels Status: Acute Assessment and Plan: * presumably related to rhabdomyolysis * holding statin * follow trend of LFTs (7) Hypertension: Code(s): I10 - Essential (primary) hypertension Status: Chronic Assessment and Plan: * reasonable control * follow trend of hemodynamcis (8) Diabetes: Code(s): E11.9 - Type 2 diabetes mellitus without complications Status: Chronic Assessment and Plan: * follow accu-cheks * glycemic control per hospitalist Long and extensive discussion (> 20 minutes) with patient regarding his renal dyfunction and recurrent hyperkalemia that has been unresponsive to medical therapy/treatment since his admission. I am worried that his KAITLIN/ARF coupled with outpatient use of spirololactone along with rhabdomyolysis are to blame for his ongoing elevated potassium level -- more concerning is that he is not making much urine and his CPK remains elevated as well. I discussed with him the likelihood that he may need renal replacement therapy/dialysis as a definitive treatment for his hyperkalemia with the hope that his intervention would be a temporary measure until his kidney function improves although I did inform him there is possibility that his kidney function may not recover as well. He appeared to voice understanding. I will continue to follow the patient with you while he remains hospitalized and make further recommendations as deemed necessary. Thank you for allowing me to participate in the care of this patient. L History of Present Illness Reason for Consult Consult date: 07/15/25 Reason for consult: acute renal failure and hyperkalemia Chief Complaint Chief complaint: Rhabdo History of Present Illness Narrative: The patient is a 69-year-old male with a past medical history as outlined below who presented to [facility] Emergency Room via EMS after being found on the ground. Apparently, from review the records in the ER as well as discussion with the patient, the patient had been sitting on the steps of his garage and reportedly fell asleep. He apparently fell to the ground while sleeping from garage steps and was unable to get up after that. He apparently felt too weak to get up. This was further complicated by the fact that apparently he was having issues/problems with hallucination when found by EMS and while in the ER but this apparently has resolved. The exact amount of time the patient was on the ground is still not entirely clear but suspicion is that was at least 24 hours if not longer. The patient does not think he hit his head and he reports no symptoms of chest pain, shortness of breath, palpitations, dizziness, lightheadedness, nausea, or vomiting prior to or after the fall. at some point, he was able to call a friend in an attempt to get assistance from his fall. EMS was summoned to his home and they confirmed they found him in his garage on the floor. He was subsequently transported to the emergency room for further assessment. Workup and evaluation emergency room demonstrated the patient be hemodynamically stable and afebrile but he was noted be tachycardic and slightly tachypneic. His exam was significant for significant ecchymoses over his right arm and right thigh area as well as some areas of bruising and skin breakdown on the posterior right thigh. Given his tachycardia, he was given IV fluid boluses which did seem to improve his heart rate. Preliminary CT scan of the brain and C-spine was negative for acute findings but given the patient's large body habitus, CT of the chest/abdomen/ pelvis was unable to be done. His chest x-ray showed no acute findings and x-ray imaging of his right arm did not show any acute fractures either. Routine blood work demonstrated a white blood cell count of 26.2, normal hemoglobin/ hematocrit, normal coagulation studies, along with a sodium of 132, potassium 6.6, CO2 of 18, BUN 54, creatinine 2.07, glucose 251, lactic acid of 4.7, AST 1867, ALT 437, and a CPK of greater than 16,000 with a proBNP of 1310 and an albumin of 3.9. Given these findings, he was initiated on medical management for his hyperkalemia and maintained on IV fluids. Given his elevated white blood count and the concern for possible early sepsis, appropriate cultures were obtained and he was initiated on empiric antibiotics. He was subsequently admitted to the hospital for further evaluation and therapy. Since his admission, repeat labs have shown persistence in his hyperkalemia despite multiple rounds of medical therapy in the form of calcium gluconate, sodium bicarbonate, D50, insulin, Lokelma, and albuterol nebulizer treatments. Furthermore, his urine output has dropped off significantly as well despite ongoing IV fluid resuscitation. Renal consultation was requested due to his acute kidney injury/acute renal failure, hyperkalemia, and rhabdomyolysis. Despite therapy to as noted, his CPK continues during greater than 16,000 and as already mentioned, his potassium level still remains elevated as well. Repeat labs have also shown an ongoing decline in his creatinine in association with a drop in urine output as well. From review his records from his primary care physician's office, his renal function /creatinine is normal at baseline with his most recent labs showing a creatinine of 1.16 mg/dL in October of 2024. Despite his risk factors of diabetes and hypertension, it would seem that his overall renal function remains well preserved. Further complicating matters with regard to his acute kidney injury/acute renal failure and hyperkalemia is the fact that he was also on an LAURY-inhibitor prior to admission as well as diuretic therapy in the form of furosemide and spironolactone. He also is on metformin which may been a contributing component to his lactic acidosis which seems to have improved to some degree with IV fluids. However, the bare concern is his recurrent/ persistent hyperkalemia despite appropriate medical therapy which puts him at risk for the possible need for renal replacement therapy/dialysis. Currently, at the time my evaluation, he does not appear to be in any acute distress. Review of Systems 2 Review of Systems: As per HPI. [facility] Past Medical History Medical History (Updated 07/15/25 @ 15:05 by Chris Keenan MD) Obstructive sleep apnea Mention on prior history and physicals but patient is never been treated with CPAP Venous stasis dermatitis of both lower extremities Chronic anticoagulation Atypical atrial flutter Diabetic peripheral neuropathy Hyperlipidemia Nonischemic cardiomyopathy Body mass index (BMI) of 50-59.9 in adult (12/01/17) Chronic pain of both knees Diabetes Atrial fibrillation With history of synchronized cardioversion x2 Hypertension Surgical History Surgical History (Updated 07/15/25 @ 01:54 by Mary Lemos DO) History of cardiac catheterization (2012) Normal coronary arteries at that time he was diagnosed with nonischemic cardiomyopathy History of bilateral hip replacements (~2004) Family History Family History (Updated 07/15/25 @ 02:12 by Linda Hamilton RN) Mother Healthy adult 90 years old Father , Age 86 Lymphoma Atrial fibrillation Sibling , 68 Cancer Social History Social History (Updated 07/15/25 @ 01:55 by Mary Lemos DO) Social History: Patient is single the never been . He does not have any children. The patient is a former smoker he smoked 1 pack of cigarettes per day for about 10 years but quit smoking in the . He denies significant alcohol use. 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 Code status: Full code (although he would not want long-term ventilation, tracheostomy or feeding tube) Surrogate decision maker: Gisel Remy (sister) Smoking packs per day: 1 Smoking cigarettes per day: 20.0 Years smoked: 15 Smoking pack-years: 15.00 Smoking status: Former smoker Tobacco type: cigarettes Alcohol intake: former Substance use: never Lack of Transportation: No Lack of Food: Never True Current Housing: I Have Housing Concerned About Future Housing: No Difficulty Paying Gas/Electric Bills: No Difficulty Paying for Meds: No Currently Unemployed: No Education: High School Diploma/GED Difficulty w/ Childcare or Family Care: No Spiritual care concerns: No Meds Home Medications and Allergies Home Medications ?Medication ?Instructions ?Recorded ?Confirmed ?Type furosemide 20 mg tablet 20 mg PO DAILY 10/28/2206/18 History lisinopril 10 mg tablet 10 mg PO DAILY 10/28/2206/18 History metformin 500 mg tablet 1,000 mg PO BID 10/28/22 History pravastatin 20 mg tablet 20 mg PO DAILY 10/28/2206/18 History rivaroxaban 20 mg tablet (Xarelto) 20 mg PO HS 2 07/15/25 History spironolactone 25 mg tablet 25 mg PO EVERY OTHER DAY 1 12/29/21 07/15/25 History spironolactone 25 mg tablet 12.5 mg PO EVERY OTHER DAY 10/29/22 07/15/25 History carvedilol 25 mg tablet 12.5 mg (1/2 x 25 mg) PO BID #30 10/31/22 07/15/25 Rx tabs amiodarone 200 mg tablet (Pacerone) 200 mg PO Q24H 07/15/25 History blood sugar diagnostic (OneTouch 07/15/25 07/15/25 Hi story Verio test strips) glipizide 10 mg tablet 10 mg PO DAILY 07/15/25/08/11 History Allergies Allergy/AdvReac Type Severity Reaction Status Date / Time No Known Allergies Allergy Unknown Verified 07/15/25 14:47 Vital Signs Vital Signs Temp Pulse Resp BP Pulse Ox O2 Del Method 07/15/25 10:16 97.8 F 83 26 H 132/60 98 07/15/25 10:00 90 07/15/25 09:23 91 20 07/15/25 09:17 88 20 07/15/25 09:09 86 07/15/25 09:04 80 20 07/15/25 08:11 95 Room Air 07/15/25 08:00 93 07/15/25 08:00 97.6 F 90 22 H 121/67 94 07/15/25 06:00 89 07/15/25 04:00 91 07/15/25 04:00 Room Air 07/15/25 03:29 86 07/15/25 03:25 87 22 H 07/15/25 03:18 98.0 F 89 18 134/57 L 94 07/15/25 02:51 98.5 F 98 17 135/70 92 07/15/25 02:21 Room Air 07/15/25 01:41 96 24 H 137/77 94 07/15/25 00:08 96 24 H 137/77 94 07/14/25 23:45 98 30 H 07/14/25 23:38 100 31 H 94 07/14/25 23:37 97 21 H 144/70 H 07/14/25 23:01 96 31 H 94 07/14/25 23:00 93 29 H 94 07/14/25 22:47 94 29 H 94 07/14/25 22:45 96 30 H 07/14/25 22:43 96 27 H 93 07/14/25 21:09 96 Room Air 07/14/25 20:17 121 H 07/14/25 20:04 98.9 F 119 H 31 H 125/101 H 95 Room Air Exam 2 Narrative: GENERAL APPEARANCE: elderly and large male male in no acute distress HEENT: normocephalic, atraumatic, normal conjunctiva and sclera, nares patient NECK: no lymphadenopathy, thyromegaly, or JVD MOUTH: normal lips, teeth, and gums CARDIOVASCULAR: RRR, normal S1 and S2, no rub RESPIRATORY: clear anteriorly, decreased at bases ABDOMEN: obese but soft, nontender, nondistended, positive bowel sounds present EXTREMITIES: no evidence of cyanosis, clubbing, or edema NEUROLOGICAL: alert and oriented x 3; CN II - XII intact bilaterally; no focal deficits noted SKIN: Ecchymosis noted on right arm and right medial thigh; scrotal erythema + right scrotal wound Results Lab Results 07/16/25 03:44 07/16/25 03:44
[2025-07-15 11:07] LABS: Hepatitis B Surface Anti Res Negative
[2025-07-15 11:40] LABS: Anion Gap 9 mmol/L (4-12); Blood Urea Nitrogen 68 mg/dL (9-20); Calcium 8.2 mg/dL (8.4-10.2); Carbon Dioxide 23 mmol/L (22-30); Chloride 95 mmol/L (98-107); Estimated CRCL calculation 42 ml/min; Estimated Glomerular Filt Rate 24; Glucose 265 mg/dL (65-110); Potassium 6.2 mmol/L (3.4-5.0); Sodium 127 mmol/L (137-145)
[2025-07-15 11:48] LABS: Creatine Kinase > 16000 U/L (55-170)
[2025-07-15 11:58] LABS: Total Protein Urine Random 67 mg/dL; Ur Ttl Prot Creatinine Ratio 0.28 mg/mg (0-0.20)
[2025-07-15] MEDS: BUMETANIDE INJ 1 MG/4 ML VIAL 2 MG IV PUSH (12:01)
[2025-07-15] MEDS: cefTRIAXone 1 GM in SODIUM CHLORIDE 0.9% IV 50 ML 100 ML IVPB (12:01)
[2025-07-15 12:02] LABS: Urea Random Urine 83 MG/DL
[2025-07-15] MEDS: SODIUM CHLORIDE 0.9% IV 500 ML 20 ML (12:02)
--- NOTE | 2025-07-15 12:10 | PM.EVENT ---
Event Note Event Note Event Note: Repeat labs reviewed: Hyperkalemia remains an issue/problem despite maximized medical management therapy since admission. More concerning is the fact that patient has had a significant drop in urine output as well. Will give a test dose of IV bumex but suspect he will need more directed therapy to improve/stabilize his potassium level in the form of renal replacement therapy/dialysis. Surgery consulted for temporary dialysis catheter placement (hesitant to place tunneled HD catheter given his leukocytosis and concerns for possible sepsis) and proceed with dialysis once catheter in place.
--- NOTE | 2025-07-15 12:10 | P.PNCROSS_ITS ---
Event Note Event Note Event Note: Repeat labs reviewed: * Hyperkalemia remains an issue/problem despite maximized medical management therapy since admission. * More concerning is the fact that patient has had a significant drop in urine output as well. * Will give a test dose of IV bumex but suspect he will need more directed therapy to improve/stabilize his potassium level in the form of renal replacement therapy/dialysis. * Surgery consulted for temporary dialysis catheter placement (hesitant to place tunneled HD catheter given his leukocytosis and concerns for possible sepsis) and proceed with dialysis once catheter in place.
[2025-07-15] MEDS: INSULIN ASPART (*BKC) 100 UNITS/ML SUB-Q ×2 (12:11→21:19)
[2025-07-15 12:58] LABS: Urine Eos QC 2nd Tech Confirmed
--- NOTE | 2025-07-15 14:53 | SUR.PREOP ---
DR GARCIA NOTIFIED BY THIS RN OF SOFT PRE-OP BLOOD PRESSURE.
--- NOTE | 2025-07-15 15:01 | WPDHPUPDATE1 ---
History and Physical Update Update Date/Time: 07/15/25 15:01 History and Physical has been reviewed, including an updated exam of the patient. There are NO changes in the patient's condition. Risks, benefits, and alternatives have been discussed and questions answered. Patient agrees to proceed with procedure. Asked to place temporary dialysis catheter urgently so patient can have dialysis today. We will proceed in the operating room under local anesthetic using fluoroscopy and ultrasound.
--- NOTE | 2025-07-15 15:02 | PM.CNGS ---
Assessment and Plan Assessment and plan (1) Acute hyperkalemia: Code(s): E87.5 - Hyperkalemia Status: Acute (2) Rhabdomyolysis: Qualifiers: Rhabdomyolysis type: non-traumatic Qualified Code(s): M62.82 - Rhabdomyolysis Code(s): M62.82 - Rhabdomyolysis Status: Acute (3) Acute kidney injury: Code(s): N17.9 - Acute kidney failure, unspecified Status: Acute (4) Encounter for fitting and adjustment of vascular catheter: Code(s): Z45.2 - Encounter for adjustment and management of vascular access device Status: Acute Assessment and Plan: Asked by primary care provider and Nephrology to urgently place temporary hemodialysis catheter. Patient has hyperkalemia and rhabdomyolysis. He is morbidly obese. He will have this placed under local anesthesia in the operating room using fluoroscopy and possibly ultrasound. History of Present Illness Consult details Consult date: 07/15/25 Requesting physician: Una Mishra APRN Narrative: Asked to place temporary dialysis catheter urgently today for acute dialysis. [facility] Past Medical History Medical History (Updated 07/15/25 @ 15:05 by Chris Keenan MD) Obstructive sleep apnea Mention on prior history and physicals but patient is never been treated with CPAP Atrial fibrillation With history of synchronized cardioversion x2 Atypical atrial flutter Venous stasis dermatitis of both lower extremities Chronic anticoagulation Diabetic peripheral neuropathy Hyperlipidemia Nonischemic cardiomyopathy Body mass index (BMI) of 50-59.9 in adult (12/01/17) Chronic pain of both knees Diabetes Hypertension Surgical History Surgical History (Updated 07/15/25 @ 01:54 by Mary Lemos DO) History of cardiac catheterization (2012) Normal coronary arteries at that time he was diagnosed with nonischemic cardiomyopathy History of bilateral hip replacements (~2004) Family History Family History (Updated 07/15/25 @ 02:12 by Linda Hamilton RN) Mother Healthy adult 90 years old Father , Age 86 Lymphoma Atrial fibrillation Sibling , 68 Cancer Social History Social History (Updated 07/15/25 @ 01:55 by Mary Lemos DO) Social History: Patient is single the never been . He does not have any children. The patient is a former smoker he smoked 1 pack of cigarettes per day for about 10 years but quit smoking in the 1980s. He denies significant alcohol use. 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 Code status: Full code (although he would not want long-term ventilation, tracheostomy or feeding tube) Surrogate decision maker: Gisel Remy (sister) Smoking packs per day: 1 Smoking cigarettes per day: 20.0 Years smoked: 15 Smoking pack-years: 15.00 Smoking status: Former smoker Tobacco type: cigarettes Alcohol intake: former Substance use: never Lack of Transportation: No Lack of Food: Never True Current Housing: I Have Housing Concerned About Future Housing: No Difficulty Paying Gas/Electric Bills: No Difficulty Paying for Meds: No Currently Unemployed: No Education: High School Diploma/GED Difficulty w/ Childcare or Family Care: No Spiritual care concerns: No Meds Home Medications and Allergies Home Medications ?Medication ?Instructions ?Recorded ?Confirmed ?Type furosemide 20 mg tablet 20 mg PO DAILY 10/28/22 07/15/25 History lisinopril 10 mg tablet 10 mg PO DAILY 10/28/22 07/15/25 History metformin 500 mg tablet 1,000 mg PO BID 10/28/22 07/15/25 History pravastatin 20 mg tablet 20 mg PO DAILY 10/28/22 07/15/25 History rivaroxaban 20 mg tablet (Xarelto) 20 mg PO HS 10/28/22 07/15/25 History spironolactone 25 mg tablet 25 mg PO EVERY OTHER DAY 10/28/22 07/15/25 History spironolactone 25 mg tablet 12.5 mg PO EVERY OTHER DAY 10/29/22 07/15/25 History carvedilol 25 mg tablet 12.5 mg (1/2 x 25 mg) PO BID #30 10/31/22 07/15/25 Rx tabs amiodarone 200 mg tablet ([place]) 200 mg PO Q24H 07/15/25 07/15/25 History blood sugar diagnostic (OneTouch 07/15/25 07/15/25 History Verio test strips) glipizide 10 mg tablet 10 mg PO DAILY 07/15/25 07/15/25 History Allergies Allergy/AdvReac Type Severity Reaction Status Date / Time No Known Allergies Allergy Unknown Verified 07/15/25 14:47 Vital Signs Vital Signs - 24 hr 07/14/25 20:04 07/14/25 20:17 07/14/25 21:09 Temperature 37.2 C Pulse Rate 119 H 121 H Respiratory Rate 31 H Blood Pressure 125/101 H Pulse Oximetry 95 96 Oxygen Delivery Room Air Room Air 07/14/25 22:43 07/14/25 22:45 07/14/25 22:47 Temperature Pulse Rate 96 96 94 Respiratory Rate 27 H 30 H 29 H Blood Pressure Pulse Oximetry 93 94 Oxygen Delivery 07/14/25 23:00 07/14/25 23:01 07/14/25 23:37 Temperature Pulse Rate 93 96 97 Respiratory Rate 29 H 31 H 21 H Blood Pressure 144/70 H Pulse Oximetry 94 94 Oxygen Delivery 07/14/25 23:38 07/14/25 23:45 07/15/25 00:08 Temperature Pulse Rate 100 98 96 Respiratory Rate 31 H 30 H 24 H Blood Pressure 137/77 Pulse Oximetry 94 94 Oxygen Delivery 07/15/25 01:41 07/15/25 02:21 07/15/25 02:51 Temperature 36.9 C Pulse Rate 96 98 Respiratory Rate 24 H 17 Blood Pressure 137/77 135/70 Pulse Oximetry 94 92 Oxygen Delivery Room Air 07/15/25 03:18 07/15/25 03:25 07/15/25 03:29 Temperature 36.7 C Pulse Rate 89 87 86 Respiratory Rate 18 22 H Blood Pressure 134/57 L Pulse Oximetry 94 Oxygen Delivery 07/15/25 04:00 07/15/25 04:00 07/15/25 06:00 Temperature Pulse Rate 91 89 Respiratory Rate Blood Pressure Pulse Oximetry Oxygen Delivery Room Air 07/15/25 08:00 07/15/25 08:00 07/15/25 08:11 Temperature 36.4 C Pulse Rate 90 93 Respiratory Rate 22 H Blood Pressure 121/67 Pulse Oximetry 94 95 Oxygen Delivery Room Air 07/15/25 09:04 07/15/25 09:09 07/15/25 09:17 Temperature Pulse Rate 80 86 88 Respiratory Rate 20 20 Blood Pressure Pulse Oximetry Oxygen Delivery 07/15/25 09:23 07/15/25 10:00 07/15/25 10:15 Temperature Pulse Rate 91 90 88 Respiratory Rate 20 20 Blood Pressure Pulse Oximetry Oxygen Delivery 07/15/25 11:36 07/15/25 12:00 07/15/25 14:00 Temperature 36.6 C Pulse Rate 83 87 89 Respiratory Rate 26 H Blood Pressure 132/60 Pulse Oximetry 98 Oxygen Delivery 07/15/25 14:35 Temperature 36.4 C Pulse Rate 80 Respiratory Rate 20 Blood Pressure 89/45 L Pulse Oximetry 95 Oxygen Delivery Room Air Results Labs 07/15/25 02:36 07/15/25 11:00 Labs: Abnormal lab results 07/14/25 07/14/25 07/14/25 Range/Units 20:36 20:55 22:59 WBC 26.2 H (4.5-10.0) K/mm3 RBC (4.6-6.20) M/mm3 Hgb (14.0-18.0) g/dL RDW (11.5-14.5) % MPV 11.6 H (7.4-10.4) fl Immature Gran % (Auto) 1.5 H (0-0.5) % Neut % (Auto) 91.7 H (45.5-73.1) % Lymph % (Auto) 2.2 L (18.3-44.2) % Lymph # (Auto) 0.58 L (0.9-3.2) K/mm3 [place] # (Auto) 1.2 H (0.1-0.6) K/mm3 Abs Immat Gran (auto) 0.40 H (0.00-0.031) K/mm3 Absolute Neuts (auto) 24.0 H (1.3-6.7) K/mm3 PT 15.1 H (11.1-14.7) Seconds VBG pH 7.273 L (7.300-7.400) VBG pO2 < 27.0 L (35.0-45.0) mmHg VBG HCO3 19.4 L (24.0-30.0) mEq/l Sodium 132 L (137-145) mmol/L Potassium 6.6 H* (3.4-5.0) mmol/L Chloride (98-107) mmol/L Carbon Dioxide 18 L (22-30) mmol/L Anion Gap 15 H (4-12) mmol/L BUN 54 H D (9-20) mg/dL Creatinine 2.07 H (0.7-1.3) mg/dL Estimated GFR 32 L (59 - ) Glucose 318 H (65-110) mg/dL POC Capillary Glucose 272 H 259 H (65-105) mg/dl Hemoglobin A1c (<5.7) % Lactic Acid 4.7 H* (0.7-2.0) mmol/L Calcium (8.4-10.2) mg/dL Phosphorus 7.8 H (2.5-4.5) mg/dL Total Bilirubin 1.6 H (0.2-1.3) mg/dL AST 1867 H (17-59) U/L ALT 437 H (6-50) U/L Total Creatine Kinase > 50577 H (55-170) U/L Troponin I 0.098 H* (0.000-0.034) ng/mL NT-Pro-B Natriuret Pep 1310 H (19.9-100) pg/mL Albumin (3.5-5.1) g/dL Urine Appearance (Clear) Urine Protein (Negative) mg/dL Urine Ketones (Negative) mg/dL Ur Blood (Man) (Negative) Urine Bilirubin (Negative) Leukocyte Esterase Rfl (Negative) JASMINA/UL Urine RBC (0-2) /hpf Protein/Creat Ratio 2 (0-0.20) mg/mg 07/14/25 07/14/25 07/15/25 Range/Units 23:12 23:57 00:10 WBC (4.5-10.0) K/mm3 RBC (4.6-6.20) M/mm3 Hgb (14.0-18.0) g/dL RDW (11.5-14.5) % MPV (7.4-10.4) fl Immature Gran % (Auto) (0-0.5) % Neut % (Auto) (45.5-73.1) % Lymph % (Auto) (18.3-44.2) % Lymph # (Auto) (0.9-3.2) K/mm3 [place] # (Auto) (0.1-0.6) K/mm3 Abs Immat Gran (auto) (0.00-0.031) K/mm3 Absolute Neuts (auto) (1.3-6.7) K/mm3 PT (11.1-14.7) Seconds VBG pH (7.300-7.400) VBG pO2 (35.0-45.0) mmHg VBG HCO3 (24.0-30.0) mEq/l Sodium (137-145) mmol/L Potassium (3.4-5.0) mmol/L Chloride (98-107) mmol/L Carbon Dioxide (22-30) mmol/L Anion Gap (4-12) mmol/L BUN (9-20) mg/dL Creatinine (0.7-1.3) mg/dL Estimated GFR (59 - ) Glucose (65-110) mg/dL POC Capillary Glucose 251 H (65-105) mg/dl Hemoglobin A1c (<5.7) % Lactic Acid 2.9 H (0.7-2.0) mmol/L Calcium (8.4-10.2) mg/dL Phosphorus (2.5-4.5) mg/dL Total Bilirubin (0.2-1.3) mg/dL AST (17-59) U/L ALT (6-50) U/L Total Creatine Kinase (55-170) U/L Troponin I 0.098 H* (0.000-0.034) ng/mL NT-Pro-B Natriuret Pep (19.9-100) pg/mL Albumin (3.5-5.1) g/dL Urine Appearance Cloudy H (Clear) Urine Protein 2+ H (Negative) mg/dL Urine Ketones Trace H (Negative) mg/dL Ur Blood (Man) 3+ H (Negative) Urine Bilirubin 2+ H (Negative) Leukocyte Esterase Rfl Trace H (Negative) JASMINA/UL Urine RBC 21-50 H (0-2) /hpf Protein/Creat Ratio 2 (0-0.20) mg/mg 07/15/25 07/15/25 07/15/25 Range/Units 02:36 02:37 04:40 WBC 23.2 H (4.5-10.0) K/mm3 RBC 4.40 L (4.6-6.20) M/mm3 Hgb 13.9 L (14.0-18.0) g/dL RDW 14.6 H (11.5-14.5) % MPV 11.7 H (7.4-10.4) fl Immature Gran % (Auto) 0.9 H (0-0.5) % Neut % (Auto) 87.1 H (45.5-73.1) % Lymph % (Auto) 3.6 L (18.3-44.2) % Lymph # (Auto) 0.83 L (0.9-3.2) K/mm3 [place] # (Auto) 1.9 H (0.1-0.6) K/mm3 Abs Immat Gran (auto) 0.21 H (0.00-0.031) K/mm3 Absolute Neuts (auto) 20.2 H (1.3-6.7) K/mm3 PT (11.1-14.7) Seconds VBG pH (7.300-7.400) VBG pO2 (35.0-45.0) mmHg VBG HCO3 (24.0-30.0) mEq/l Sodium 130 L (137-145) mmol/L Potassium 6.1 H* (3.4-5.0) mmol/L Chloride (98-107) mmol/L Carbon Dioxide 20 L (22-30) mmol/L Anion Gap (4-12) mmol/L BUN 60 H (9-20) mg/dL Creatinine 2.11 H (0.7-1.3) mg/dL Estimated GFR 31 L (59 - ) Glucose 232 H (65-110) mg/dL POC Capillary Glucose 207 H (65-105) mg/dl Hemoglobin A1c 6.3 H (<5.7) % Lactic Acid 2.7 H (0.7-2.0) mmol/L Calcium (8.4-10.2) mg/dL Phosphorus (2.5-4.5) mg/dL Total Bilirubin 1.7 H (0.2-1.3) mg/dL AST 1655 H (17-59) U/L ALT 435 H (6-50) U/L Total Creatine Kinase > 85131 H (55-170) U/L Troponin I (0.000-0.034) ng/mL NT-Pro-B Natriuret Pep (19.9-100) pg/mL Albumin 3.4 L (3.5-5.1) g/dL Urine Appearance (Clear) Urine Protein (Negative) mg/dL Urine Ketones (Negative) mg/dL Ur Blood (Man) (Negative) Urine Bilirubin (Negative) Leukocyte Esterase Rfl (Negative) JASMINA/UL Urine RBC (0-2) /hpf Protein/Creat Ratio 2 (0-0.20) mg/mg 07/15/25 07/15/25 07/15/25 Range/Units 05:10 07:44 08:05 WBC (4.5-10.0) K/mm3 RBC (4.6-6.20) M/mm3 Hgb (14.0-18.0) g/dL RDW (11.5-14.5) % MPV (7.4-10.4) fl Immature Gran % (Auto) (0-0.5) % Neut % (Auto) (45.5-73.1) % Lymph % (Auto) (18.3-44.2) % Lymph # (Auto) (0.9-3.2) K/mm3 [place] # (Auto) (0.1-0.6) K/mm3 Abs Immat Gran (auto) (0.00-0.031) K/mm3 Absolute Neuts (auto) (1.3-6.7) K/mm3 PT (11.1-14.7) Seconds VBG pH (7.300-7.400) VBG pO2 (35.0-45.0) mmHg VBG HCO3 (24.0-30.0) mEq/l Sodium 132 L (137-145) mmol/L Potassium 6.4 H* (3.4-5.0) mmol/L Chloride (98-107) mmol/L Carbon Dioxide (22-30) mmol/L Anion Gap (4-12) mmol/L BUN 65 H (9-20) mg/dL Creatinine 2.43 H (0.7-1.3) mg/dL Estimated GFR 26 L (59 - ) Glucose 212 H (65-110) mg/dL POC Capillary Glucose 191 H 199 H (65-105) mg/dl Hemoglobin A1c (<5.7) % Lactic Acid (0.7-2.0) mmol/L Calcium (8.4-10.2) mg/dL Phosphorus (2.5-4.5) mg/dL Total Bilirubin (0.2-1.3) mg/dL AST (17-59) U/L ALT (6-50) U/L Total Creatine Kinase (55-170) U/L Troponin I (0.000-0.034) ng/mL NT-Pro-B Natriuret Pep (19.9-100) pg/mL Albumin (3.5-5.1) g/dL Urine Appearance (Clear) Urine Protein (Negative) mg/dL Urine Ketones (Negative) mg/dL Ur Blood (Man) (Negative) Urine Bilirubin (Negative) Leukocyte Esterase Rfl (Negative) JASMINA/UL Urine RBC (0-2) /hpf Protein/Creat Ratio 2 (0-0.20) mg/mg 07/15/25 07/15/25 07/15/25 Range/Units 10:10 11:00 11:19 WBC (4.5-10.0) K/mm3 RBC (4.6-6.20) M/mm3 Hgb (14.0-18.0) g/dL RDW (11.5-14.5) % MPV (7.4-10.4) fl Immature Gran % (Auto) (0-0.5) % Neut % (Auto) (45.5-73.1) % Lymph % (Auto) (18.3-44.2) % Lymph # (Auto) (0.9-3.2) K/mm3 [place] # (Auto) (0.1-0.6) K/mm3 Abs Immat Gran (auto) (0.00-0.031) K/mm3 Absolute Neuts (auto) (1.3-6.7) K/mm3 PT (11.1-14.7) Seconds VBG pH (7.300-7.400) VBG pO2 (35.0-45.0) mmHg VBG HCO3 (24.0-30.0) mEq/l Sodium 127 L (137-145) mmol/L Potassium 6.2 H* (3.4-5.0) mmol/L Chloride 95 L (98-107) mmol/L Carbon Dioxide (22-30) mmol/L Anion Gap (4-12) mmol/L BUN 68 H (9-20) mg/dL Creatinine 2.60 H (0.7-1.3) mg/dL Estimated GFR 24 L (59 - ) Glucose 265 H (65-110) mg/dL POC Capillary Glucose 269 H (65-105) mg/dl Hemoglobin A1c (<5.7) % Lactic Acid (0.7-2.0) mmol/L Calcium 8.2 L (8.4-10.2) mg/dL Phosphorus (2.5-4.5) mg/dL Total Bilirubin (0.2-1.3) mg/dL AST (17-59) U/L ALT (6-50) U/L Total Creatine Kinase > 57067 H (55-170) U/L Troponin I (0.000-0.034) ng/mL NT-Pro-B Natriuret Pep (19.9-100) pg/mL Albumin (3.5-5.1) g/dL Urine Appearance (Clear) Urine Protein (Negative) mg/dL Urine Ketones (Negative) mg/dL Ur Blood (Man) (Negative) Urine Bilirubin (Negative) Leukocyte Esterase Rfl (Negative) JASMINA/UL Urine RBC (0-2) /hpf Protein/Creat Ratio 2 (0-0.20) mg/mg / Range/Units 11:30 WBC (4.5-10.0) K/mm3 RBC (4.6-6.20) M/mm3 Hgb (14.0-18.0) g/dL RDW (11.5-14.5) % MPV (7.4-10.4) fl Immature Gran % (Auto) (0-0.5) % Neut % (Auto) (45.5-73.1) % Lymph % (Auto) (18.3-44.2) % Lymph # (Auto) (0.9-3.2) K/mm3 [place] # (Auto) (0.1-0.6) K/mm3 Abs Immat Gran (auto) (0.00-0.031) K/mm3 Absolute Neuts (auto) (1.3-6.7) K/mm3 PT (11.1-14.7) Seconds VBG pH (7.300-7.400) VBG pO2 (35.0-45.0) mmHg VBG HCO3 (24.0-30.0) mEq/l Sodium (137-145) mmol/L Potassium (3.4-5.0) mmol/L Chloride (98-107) mmol/L Carbon Dioxide (22-30) mmol/L Anion Gap (4-12) mmol/L BUN (9-20) mg/dL Creatinine (0.7-1.3) mg/dL Estimated GFR (59 - ) Glucose (65-110) mg/dL POC Capillary Glucose (65-105) mg/dl Hemoglobin A1c (<5.7) % Lactic Acid (0.7-2.0) mmol/L Calcium (8.4-10.2) mg/dL Phosphorus (2.5-4.5) mg/dL Total Bilirubin (0.2-1.3) mg/dL AST (17-59) U/L ALT (6-50) U/L Total Creatine Kinase (55-170) U/L Troponin I (0.000-0.034) ng/mL NT-Pro-B Natriuret Pep (19.9-100) pg/mL Albumin (3.5-5.1) g/dL Urine Appearance (Clear) Urine Protein (Negative) mg/dL Urine Ketones (Negative) mg/dL Ur Blood (Man) (Negative) Urine Bilirubin (Negative) Leukocyte Esterase Rfl (Negative) JASMINA/UL Urine RBC (0-2) /hpf Protein/Creat Ratio 2 0.28 H (0-0.20) mg/mg Diabetes panel 07/14/25 07/15/25 07/15/25 Range/Units 20:36 02:36 02:37 Sodium 132 L 130 L (137-145) mmol/L Potassium 6.6 H* 6.1 H* (3.4-5.0) mmol/L Chloride 99 101 (98-107) mmol/L Carbon Dioxide 18 L 20 L (22-30) mmol/L BUN 54 H D 60 H (9-20) mg/dL Creatinine 2.07 H 2.11 H (0.7-1.3) mg/dL Glucose 318 H 232 H (65-110) mg/dL Hemoglobin A1c 6.3 H (<5.7) % Calcium 9.1 8.5 (8.4-10.2) mg/dL AST 1867 H 1655 H (17-59) U/L ALT 437 H 435 H (6-50) U/L Alkaline Phosphatase 85 67 (38-126) U/L Total Protein 6.5 6.3 (6.3-8.2) g/dL Albumin 3.9 3.4 L (3.5-5.1) g/dL 07/15/25 07/15/25 Range/Units 08:05 11:00 Sodium 132 L 127 L (137-145) mmol/L Potassium 6.4 H* 6.2 H* (3.4-5.0) mmol/L Chloride 99 95 L (98-107) mmol/L Carbon Dioxide 23 23 (22-30) mmol/L BUN 65 H 68 H (9-20) mg/dL Creatinine 2.43 H 2.60 H (0.7-1.3) mg/dL Glucose 212 H 265 H (65-110) mg/dL Hemoglobin A1c (<5.7) % Calcium 8.6 8.2 L (8.4-10.2) mg/dL AST (17-59) U/L ALT (6-50) U/L Alkaline Phosphatase (38-126) U/L Total Protein (6.3-8.2) g/dL Albumin (3.5-5.1) g/dL Calcium panel 07/14/25 07/15/25 07/15/25 Range/Units 20:36 02:37 08:05 Calcium 9.1 8.5 8.6 (8.4-10.2) mg/dL Phosphorus 7.8 H (2.5-4.5) mg/dL Albumin 3.9 3.4 L (3.5-5.1) g/dL 07/15/25 Range/Units 11:00 Calcium 8.2 L (8.4-10.2) mg/dL Phosphorus (2.5-4.5) mg/dL Albumin (3.5-5.1) g/dL Pituitary panel 07/14/25 07/15/25 07/15/25 Range/Units 20:36 02:37 08:05 Sodium 132 L 130 L 132 L (137-145) mmol/L Potassium 6.6 H* 6.1 H* 6.4 H* (3.4-5.0) mmol/L Chloride 99 101 99 (98-107) mmol/L Carbon Dioxide 18 L 20 L 23 (22-30) mmol/L BUN 54 H D 60 H 65 H (9-20) mg/dL Creatinine 2.07 H 2.11 H 2.43 H (0.7-1.3) mg/dL Glucose 318 H 232 H 212 H (65-110) mg/dL Calcium 9.1 8.5 8.6 (8.4-10.2) mg/dL 08/29/25 Range/Units 11:00 Sodium 127 L (137-145) mmol/L Potassium 6.2 H* (3.4-5.0) mmol/L Chloride 95 L (98-107) mmol/L Carbon Dioxide 23 (22-30) mmol/L BUN 68 H (9-20) mg/dL Creatinine 2.60 H (0.7-1.3) mg/dL Glucose 265 H (65-110) mg/dL Calcium 8.2 L (8.4-10.2) mg/dL Adrenal panel 07/14/25 07/15/25 07/15/25 Range/Units 20:36 02:37 08:05 Sodium 132 L 130 L 132 L (137-145) mmol/L Potassium 6.6 H* 6.1 H* 6.4 H* (3.4-5.0) mmol/L Chloride 99 101 99 (98-107) mmol/L Carbon Dioxide 18 L 20 L 23 (22-30) mmol/L BUN 54 H D 60 H 65 H (9-20) mg/dL Creatinine 2.07 H 2.11 H 2.43 H (0.7-1.3) mg/dL Glucose 318 H 232 H 212 H (65-110) mg/dL Calcium 9.1 8.5 8.6 (8.4-10.2) mg/dL Total Bilirubin 1.6 H 1.7 H (0.2-1.3) mg/dL AST 1867 H 1655 H (17-59) U/L ALT 437 H 435 H (6-50) U/L Alkaline Phosphatase 85 67 (38-126) U/L Total Protein 6.5 6.3 (6.3-8.2) g/dL Albumin 3.9 3.4 L (3.5-5.1) g/dL 07/15/25 Range/Units 11:00 Sodium 127 L (137-145) mmol/L Potassium 6.2 H* (3.4-5.0) mmol/L Chloride 95 L (98-107) mmol/L Carbon Dioxide 23 (22-30) mmol/L BUN 68 H (9-20) mg/dL Creatinine 2.60 H (0.7-1.3) mg/dL Glucose 265 H (65-110) mg/dL Calcium 8.2 L (8.4-10.2) mg/dL Total Bilirubin (0.2-1.3) mg/dL AST (17-59) U/L ALT (6-50) U/L Alkaline Phosphatase (38-126) U/L Total Protein (6.3-8.2) g/dL Albumin (3.5-5.1) g/dL All other labs normal.
--- NOTE | 2025-07-15 15:05 | PM.CNGS ---
History of Present Illness Consult details Consult date: 07/15/25 Reason for consult: other (Temporary hemodialysis catheter placement) Requesting physician: Diamante Agee MD Narrative: Patient is a 69-year-old male with history of hyperkalemia, AKA, rhabdomyolysis, sepsis, type 2 patella PT's myelitis, lactic acidosis who I have been asked to see in surgical consultation for placement a temporary hemodialysis catheter. Patient 1st presented to the ED on 07/14 after being unable to get up off the ground for. Patient is unsure how long he was there. Also endorsing hallucinations at the time. He was afebrile in the ER. He was not able to produce any urine in the ears or fully catheter was placed and he was noted to have tea-colored urine of about 250 mL. Glucose elevated to 318. Labs revealed acute kidney injury secondary to rhabdomyolysis resulting in acute hyperkalemia with peaked T-waves on EKG. Rhabdomyolysis due to prolonged time down. Today creatinine is 2.6 and BUN is 68. PMF Past Medical History Medical History (Updated 07/15/25 @ 15:05 by Chris Keenan MD) Obstructive sleep apnea Mention on prior history and physicals but patient is never been treated with CPAP Atrial fibrillation With history of synchronized cardioversion x2 Atypical atrial flutter Venous stasis dermatitis of both lower extremities Chronic anticoagulation Diabetic peripheral neuropathy Hyperlipidemia Nonischemic cardiomyopathy Body mass index (BMI) of 50-59.9 in adult (12/01/17) Chronic pain of both knees Diabetes Hypertension Surgical History Surgical History (Updated 07/15/25 @ 01:54 by Mary Lemos DO) History of cardiac catheterization (2012) Normal coronary arteries at that time he was diagnosed with nonischemic cardiomyopathy History of bilateral hip replacements (~2004) Family History Family History (Updated 07/15/25 @ 02:12 by Linda Hamilton RN) Mother Healthy adult 90 years old Father , Age 86 Lymphoma Atrial fibrillation Sibling , 68 Cancer Social History Social History (Updated 07/15/25 @ 01:55 by Mary Lemos DO) Social History: Patient is single the never been . He does not have any children. The patient is a former smoker he smoked 1 pack of cigarettes per day for about 10 years but quit smoking in the 1980s. He denies significant alcohol use. 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 Code status: Full code (although he would not want long-term ventilation, tracheostomy or feeding tube) Surrogate decision maker: Gisel Remy (sister) Smoking packs per day: 1 Smoking cigarettes per day: 20.0 Years smoked: 15 Smoking pack-years: 15.00 Smoking status: Former smoker Tobacco type: cigarettes Alcohol intake: former Substance use: never Lack of Transportation: No Lack of Food: Never True Current Housing: I Have Housing Concerned About Future Housing: No Difficulty Paying Gas/Electric Bills: No Difficulty Paying for Meds: No Currently Unemployed: No Education: High School Diploma/GED Difficulty w/ Childcare or Family Care: No Spiritual care concerns: No Meds Home Medications and Allergies Home Medications ?Medication ?Instructions ?Recorded ?Confirmed ?Type furosemide 20 mg tablet 20 mg PO DAILY 10/28/22 07/15/25 History lisinopril 10 mg tablet 10 mg PO DAILY 10/28/22 07/15/25 History metformin 500 mg tablet 1,000 mg PO BID 10/28/22 07/15/25 History pravastatin 20 mg tablet 20 mg PO DAILY 10/28/22 07/15/25 History rivaroxaban 20 mg tablet (Xarelto) 20 mg PO HS 10/28/22 07/15/25 History spironolactone 25 mg tablet 25 mg PO EVERY OTHER DAY 10/28/22 07/15/25 History spironolactone 25 mg tablet 12.5 mg PO EVERY OTHER DAY 10/29/22 07/15/25 History carvedilol 25 mg tablet 12.5 mg (1/2 x 25 mg) PO BID #30 10/31/22 07/15/25 Rx tabs amiodarone 200 mg tablet (Pacerone) 200 mg PO Q24H 07/15/25 07/15/25 History blood sugar diagnostic (OneTouch 07/15/25 07/15/25 History Verio test strips) glipizide 10 mg tablet 10 mg PO DAILY 07/15/25 07/15/25 History Allergies Allergy/AdvReac Type Severity Reaction Status Date / Time No Known Allergies Allergy Unknown Verified 07/15/25 14:47 Vital Signs Vital Signs - 24 hr 07/14/25 20:04 07/14/25 20:17 07/14/25 21:09 Temperature 98.9 F Pulse Rate 119 H 121 H Respiratory Rate 31 H Blood Pressure 125/101 H Pulse Oximetry 95 96 Oxygen Delivery Room Air Room Air 07/14/25 22:43 07/14/25 22:45 07/14/25 22:47 Temperature Pulse Rate 96 96 94 Respiratory Rate 27 H 30 H 29 H Blood Pressure Pulse Oximetry 93 94 Oxygen Delivery 07/14/25 23:00 07/14/25 23:01 07/14/25 23:37 Temperature Pulse Rate 93 96 97 Respiratory Rate 29 H 31 H 21 H Blood Pressure 144/70 H Pulse Oximetry 94 94 Oxygen Delivery 07/14/25 23:38 07/14/25 23:45 07/15/25 00:08 Temperature Pulse Rate 100 98 96 Respiratory Rate 31 H 30 H 24 H Blood Pressure 137/77 Pulse Oximetry 94 94 Oxygen Delivery 07/15/25 01:41 07/15/25 02:21 07/15/25 02:51 Temperature 98.5 F Pulse Rate 96 98 Respiratory Rate 24 H 17 Blood Pressure 137/77 135/70 Pulse Oximetry 94 92 Oxygen Delivery Room Air 07/15/25 03:18 07/15/25 03:25 07/15/25 03:29 Temperature 98.0 F Pulse Rate 89 87 86 Respiratory Rate 18 22 H Blood Pressure 134/57 L Pulse Oximetry 94 Oxygen Delivery 07/15/25 04:00 07/15/25 04:00 07/15/25 06:00 Temperature Pulse Rate 91 89 Respiratory Rate Blood Pressure Pulse Oximetry Oxygen Delivery Room Air 07/15/25 08:00 07/15/25 08:00 07/15/25 08:11 Temperature 97.6 F Pulse Rate 90 93 Respiratory Rate 22 H Blood Pressure 121/67 Pulse Oximetry 94 95 Oxygen Delivery Room Air 07/15/25 09:04 07/15/25 09:09 07/15/25 09:17 Temperature Pulse Rate 80 86 88 Respiratory Rate 20 20 Blood Pressure Pulse Oximetry Oxygen Delivery 07/15/25 09:23 07/15/25 10:00 07/15/25 10:15 Temperature Pulse Rate 91 90 88 Respiratory Rate 20 20 Blood Pressure Pulse Oximetry Oxygen Delivery 07/15/25 11:36 07/15/25 12:00 07/15/25 14:00 Temperature 97.8 F Pulse Rate 83 87 89 Respiratory Rate 26 H Blood Pressure 132/60 Pulse Oximetry 98 Oxygen Delivery 07/15/25 14:35 Temperature 97.6 F Pulse Rate 80 Respiratory Rate 20 Blood Pressure 89/45 L Pulse Oximetry 95 Oxygen Delivery Room Air Results Labs 07/15/25 02:36 07/15/25 11:00 Labs: Abnormal lab results 07/14/25 07/14/25 07/14/25 Range/Units 20:36 20:55 22:59 WBC 26.2 H (4.5-10.0) K/mm3 RBC (4.6-6.20) M/mm3 Hgb (14.0-18.0) g/dL RDW (11.5-14.5) % MPV 11.6 H (7.4-10.4) fl Immature Gran % (Auto) 1.5 H (0-0.5) % Neut % (Auto) 91.7 H (45.5-73.1) % Lymph % (Auto) 2.2 L (18.3-44.2) % Lymph # (Auto) 0.58 L (0.9-3.2) K/mm3 Clinch # (Auto) 1.2 H (0.1-0.6) K/mm3 Abs Immat Gran (auto) 0.40 H (0.00-0.031) K/mm3 Absolute Neuts (auto) 24.0 H (1.3-6.7) K/mm3 PT 15.1 H (11.1-14.7) Seconds VBG pH 7.273 L (7.300-7.400) VBG pO2 < 27.0 L (35.0-45.0) mmHg VBG HCO3 19.4 L (24.0-30.0) mEq/l Sodium 132 L (137-145) mmol/L Potassium 6.6 H* (3.4-5.0) mmol/L Chloride (98-107) mmol/L Carbon Dioxide 18 L (22-30) mmol/L Anion Gap 15 H (4-12) mmol/L BUN 54 H D (9-20) mg/dL Creatinine 2.07 H (0.7-1.3) mg/dL Estimated GFR 32 L (59 - ) Glucose 318 H (65-110) mg/dL POC Capillary Glucose 272 H 259 H (65-105) mg/dl Hemoglobin A1c (<5.7) % Lactic Acid 4.7 H* (0.7-2.0) mmol/L Calcium (8.4-10.2) mg/dL Phosphorus 7.8 H (2.5-4.5) mg/dL Total Bilirubin 1.6 H (0.2-1.3) mg/dL AST 1867 H (17-59) U/L ALT 437 H (6-50) U/L Total Creatine Kinase > 07811 H (55-170) U/L Troponin I 0.098 H* (0.000-0.034) ng/mL NT-Pro-B Natriuret Pep 1310 H (19.9-100) pg/mL Albumin (3.5-5.1) g/dL Urine Appearance (Clear) Urine Protein (Negative) mg/dL Urine Ketones (Negative) mg/dL Ur Blood (Man) (Negative) Urine Bilirubin (Negative) Leukocyte Esterase Rfl (Negative) JASMINA/UL Urine RBC (0-2) /hpf Protein/Creat Ratio 2 (0-0.20) mg/mg 07/14/25 07/14/25 07/15/25 Range/Units 23:12 23:57 00:10 WBC (4.5-10.0) K/mm3 RBC (4.6-6.20) M/mm3 Hgb (14.0-18.0) g/dL RDW (11.5-14.5) % MPV (7.4-10.4) fl Immature Gran % (Auto) (0-0.5) % Neut % (Auto) (45.5-73.1) % Lymph % (Auto) (18.3-44.2) % Lymph # (Auto) (0.9-3.2) K/mm3 Clinch # (Auto) (0.1-0.6) K/mm3 Abs Immat Gran (auto) (0.00-0.031) K/mm3 Absolute Neuts (auto) (1.3-6.7) K/mm3 PT (11.1-14.7) Seconds VBG pH (7.300-7.400) VBG pO2 (35.0-45.0) mmHg VBG HCO3 (24.0-30.0) mEq/l Sodium (137-145) mmol/L Potassium (3.4-5.0) mmol/L Chloride (98-107) mmol/L Carbon Dioxide (22-30) mmol/L Anion Gap (4-12) mmol/L BUN (9-20) mg/dL Creatinine (0.7-1.3) mg/dL Estimated GFR (59 - ) Glucose (65-110) mg/dL POC Capillary Glucose 251 H (65-105) mg/dl Hemoglobin A1c (<5.7) % Lactic Acid 2.9 H (0.7-2.0) mmol/L Calcium (8.4-10.2) mg/dL Phosphorus (2.5-4.5) mg/dL Total Bilirubin (0.2-1.3) mg/dL AST (17-59) U/L ALT (6-50) U/L Total Creatine Kinase (55-170) U/L Troponin I 0.098 H* (0.000-0.034) ng/mL NT-Pro-B Natriuret Pep (19.9-100) pg/mL Albumin (3.5-5.1) g/dL Urine Appearance Cloudy H (Clear) Urine Protein 2+ H (Negative) mg/dL Urine Ketones Trace H (Negative) mg/dL Ur Blood (Man) 3+ H (Negative) Urine Bilirubin 2+ H (Negative) Leukocyte Esterase Rfl Trace H (Negative) JASMINA/UL Urine RBC 21-50 H (0-2) /hpf Protein/Creat Ratio 2 (0-0.20) mg/mg 07/15/25 07/15/25 07/15/25 Range/Units 02:36 02:37 04:40 WBC 23.2 H (4.5-10.0) K/mm3 RBC 4.40 L (4.6-6.20) M/mm3 Hgb 13.9 L (14.0-18.0) g/dL RDW 14.6 H (11.5-14.5) % MPV 11.7 H (7.4-10.4) fl Immature Gran % (Auto) 0.9 H (0-0.5) % Neut % (Auto) 87.1 H (45.5-73.1) % Lymph % (Auto) 3.6 L (18.3-44.2) % Lymph # (Auto) 0.83 L (0.9-3.2) K/mm3 Clinch # (Auto) 1.9 H (0.1-0.6) K/mm3 Abs Immat Gran (auto) 0.21 H (0.00-0.031) K/mm3 Absolute Neuts (auto) 20.2 H (1.3-6.7) K/mm3 PT (11.1-14.7) Seconds VBG pH (7.300-7.400) VBG pO2 (35.0-45.0) mmHg VBG HCO3 (24.0-30.0) mEq/l Sodium 130 L (137-145) mmol/L Potassium 6.1 H* (3.4-5.0) mmol/L Chloride (98-107) mmol/L Carbon Dioxide 20 L (22-30) mmol/L Anion Gap (4-12) mmol/L BUN 60 H (9-20) mg/dL Creatinine 2.11 H (0.7-1.3) mg/dL Estimated GFR 31 L (59 - ) Glucose 232 H (65-110) mg/dL POC Capillary Glucose 207 H (65-105) mg/dl Hemoglobin A1c 6.3 H (<5.7) % Lactic Acid 2.7 H (0.7-2.0) mmol/L Calcium (8.4-10.2) mg/dL Phosphorus (2.5-4.5) mg/dL Total Bilirubin 1.7 H (0.2-1.3) mg/dL AST 1655 H (17-59) U/L ALT 435 H (6-50) U/L Total Creatine Kinase > 48087 H (55-170) U/L Troponin I (0.000-0.034) ng/mL NT-Pro-B Natriuret Pep (19.9-100) pg/mL Albumin 3.4 L (3.5-5.1) g/dL Urine Appearance (Clear) Urine Protein (Negative) mg/dL Urine Ketones (Negative) mg/dL Ur Blood (Man) (Negative) Urine Bilirubin (Negative) Leukocyte Esterase Rfl (Negative) JASMINA/UL Urine RBC (0-2) /hpf Protein/Creat Ratio 2 (0-0.20) mg/mg 07/15/25 07/15/2525 Range/Units 05:10 07:44 08:05 WBC (4.5-10.0) K/mm3 RBC (4.6-6.20) M/mm3 Hgb (14.0-18.0) g/dL RDW (11.5-14.5) % MPV (7.4-10.4) fl Immature Gran % (Auto) (0-0.5) % Neut % (Auto) (45.5-73.1) % Lymph % (Auto) (18.3-44.2) % Lymph # (Auto) (0.9-3.2) K/mm3 Clinch # (Auto) (0.1-0.6) K/mm3 Abs Immat Gran (auto) (0.00-0.031) K/mm3 Absolute Neuts (auto) (1.3-6.7) K/mm3 PT (11.1-14.7) Seconds VBG pH (7.300-7.400) VBG pO2 (35.0-45.0) mmHg VBG HCO3 (24.0-30.0) mEq/l Sodium 132 L (137-145) mmol/L Potassium 6.4 H* (3.4-5.0) mmol/L Chloride (98-107) mmol/L Carbon Dioxide (22-30) mmol/L Anion Gap (4-12) mmol/L BUN 65 H (9-20) mg/dL Creatinine 2.43 H (0.7-1.3) mg/dL Estimated GFR 26 L (59 - ) Glucose 212 H (65-110) mg/dL POC Capillary Glucose 191 H 199 H (65-105) mg/dl Hemoglobin A1c (<5.7) % Lactic Acid (0.7-2.0) mmol/L Calcium (8.4-10.2) mg/dL Phosphorus (2.5-4.5) mg/dL Total Bilirubin (0.2-1.3) mg/dL AST (17-59) U/L ALT (6-50) U/L Total Creatine Kinase (55-170) U/L Troponin I (0.000-0.034) ng/mL NT-Pro-B Natriuret Pep (19.9-100) pg/mL Albumin (3.5-5.1) g/dL Urine Appearance (Clear) Urine Protein (Negative) mg/dL Urine Ketones (Negative) mg/dL Ur Blood (Man) (Negative) Urine Bilirubin (Negative) Leukocyte Esterase Rfl (Negative) JASMINA/UL Urine RBC (0-2) /hpf Protein/Creat Ratio 2 (0-0.20) mg/mg 07/15/25 07/15/25 07/15/25 Range/Units 10:10 11:00 11:19 WBC (4.5-10.0) K/mm3 RBC (4.6-6.20) M/mm3 Hgb (14.0-18.0) g/dL RDW (11.5-14.5) % MPV (7.4-10.4) fl Immature Gran % (Auto) (0-0.5) % Neut % (Auto) (45.5-73.1) % Lymph % (Auto) (18.3-44.2) % Lymph # (Auto) (0.9-3.2) K/mm3 Clinch # (Auto) (0.1-0.6) K/mm3 Abs Immat Gran (auto) (0.00-0.031) K/mm3 Absolute Neuts (auto) (1.3-6.7) K/mm3 PT (11.1-14.7) Seconds VBG pH (7.300-7.400) VBG pO2 (35.0-45.0) mmHg VBG HCO3 (24.0-30.0) mEq/l Sodium 127 L (137-145) mmol/L Potassium 6.2 H* (3.4-5.0) mmol/L Chloride 95 L (98-107) mmol/L Carbon Dioxide (22-30) mmol/L Anion Gap (4-12) mmol/L BUN 68 H (9-20) mg/dL Creatinine 2.60 H (0.7-1.3) mg/dL Estimated GFR 24 L (59 - ) Glucose 265 H (65-110) mg/dL POC Capillary Glucose 269 H (65-105) mg/dl Hemoglobin A1c (<5.7) % Lactic Acid (0.7-2.0) mmol/L Calcium 8.2 L (8.4-10.2) mg/dL Phosphorus (2.5-4.5) mg/dL Total Bilirubin (0.2-1.3) mg/dL AST (17-59) U/L ALT (6-50) U/L Total Creatine Kinase > 36723 H (55-170) U/L Troponin I (0.000-0.034) ng/mL NT-Pro-B Natriuret Pep (19.9-100) pg/mL Albumin (3.5-5.1) g/dL Urine Appearance (Clear) Urine Protein (Negative) mg/dL Urine Ketones (Negative) mg/dL Ur Blood (Man) (Negative) Urine Bilirubin (Negative) Leukocyte Esterase Rfl (Negative) JASMINA/UL Urine RBC (0-2) /hpf Protein/Creat Ratio 2 (0-0.20) mg/mg 07/15/25 Range/Units 11:30 WBC (4.5-10.0) K/mm3 RBC (4.6-6.20) M/mm3 Hgb (14.0-18.0) g/dL RDW (11.5-14.5) % MPV (7.4-10.4) fl Immature Gran % (Auto) (0-0.5) % Neut % (Auto) (45.5-73.1) % Lymph % (Auto) (18.3-44.2) % Lymph # (Auto) (0.9-3.2) K/mm3 Clinch # (Auto) (0.1-0.6) K/mm3 Abs Immat Gran (auto) (0.00-0.031) K/mm3 Absolute Neuts (auto) (1.3-6.7) K/mm3 PT (11.1-14.7) Seconds VBG pH (7.300-7.400) VBG pO2 (35.0-45.0) mmHg VBG HCO3 (24.0-30.0) mEq/l Sodium (137-145) mmol/L Potassium (3.4-5.0) mmol/L Chloride (98-107) mmol/L Carbon Dioxide (22-30) mmol/L Anion Gap (4-12) mmol/L BUN (9-20) mg/dL Creatinine (0.7-1.3) mg/dL Estimated GFR (59 - ) Glucose (65-110) mg/dL POC Capillary Glucose (65-105) mg/dl Hemoglobin A1c (<5.7) % Lactic Acid (0.7-2.0) mmol/L Calcium (8.4-10.2) mg/dL Phosphorus (2.5-4.5) mg/dL Total Bilirubin (0.2-1.3) mg/dL AST (17-59) U/L ALT (6-50) U/L Total Creatine Kinase (55-170) U/L Troponin I (0.000-0.034) ng/mL NT-Pro-B Natriuret Pep (19.9-100) pg/mL Albumin (3.5-5.1) g/dL Urine Appearance (Clear) Urine Protein (Negative) mg/dL Urine Ketones (Negative) mg/dL Ur Blood (Man) (Negative) Urine Bilirubin (Negative) Leukocyte Esterase Rfl (Negative) JASMINA/UL Urine RBC (0-2) /hpf Protein/Creat Ratio 2 0.28 H (0-0.20) mg/mg Diabetes panel 07/14/25 07/15/25 07/15/25 Range/Units 20:36 02:36 02:37 Sodium 132 L 130 L (137-145) mmol/L Potassium 6.6 H* 6.1 H* (3.4-5.0) mmol/L Chloride 99 101 (98-107) mmol/L Carbon Dioxide 18 L 20 L (22-30) mmol/L BUN 54 H D 60 H (9-20) mg/dL Creatinine 2.07 H 2.11 H (0.7-1.3) mg/dL Glucose 318 H 232 H (65-110) mg/dL Hemoglobin A1c 6.3 H (<5.7) % Calcium 9.1 8.5 (8.4-10.2) mg/dL AST 1867 H 1655 H (17-59) U/L ALT 437 H 435 H (6-50) U/L Alkaline Phosphatase 85 67 (38-126) U/L Total Protein 6.5 6.3 (6.3-8.2) g/dL Albumin 3.9 3.4 L (3.5-5.1) g/dL 07/15/25 07/15/25 Range/Units 08:05 11:00 Sodium 132 L 127 L (137-145) mmol/L Potassium 6.4 H* 6.2 H* (3.4-5.0) mmol/L Chloride 99 95 L (98-107) mmol/L Carbon Dioxide 23 23 (22-30) mmol/L BUN 65 H 68 H (9-20) mg/dL Creatinine 2.43 H 2.60 H (0.7-1.3) mg/dL Glucose 212 H 265 H (65-110) mg/dL Hemoglobin A1c (<5.7) % Calcium 8.6 8.2 L (8.4-10.2) mg/dL AST (17-59) U/L ALT (6-50) U/L Alkaline Phosphatase (38-126) U/L Total Protein (6.3-8.2) g/dL Albumin (3.5-5.1) g/dL Calcium panel 07/14/25 07/15/25 07/15/25 Range/Units 20:36 02:37 08:05 Calcium 9.1 8.5 8.6 (8.4-10.2) mg/dL Phosphorus 7.8 H (2.5-4.5) mg/dL Albumin 3.9 3.4 L (3.5-5.1) g/dL 07/15/25 Range/Units 11:00 Calcium 8.2 L (8.4-10.2) mg/dL Phosphorus (2.5-4.5) mg/dL Albumin (3.5-5.1) g/dL Pituitary panel 07/14/25 07/15/25 07/15/25 Range/Units 20:36 02:37 08:05 Sodium 132 L 130 L 132 L (137-145) mmol/L Potassium 6.6 H* 6.1 H* 6.4 H* (3.4-5.0) mmol/L Chloride 99 101 99 (98-107) mmol/L Carbon Dioxide 18 L 20 L 23 (22-30) mmol/L BUN 54 H D 60 H 65 H (9-20) mg/dL Creatinine 2.07 H 2.11 H 2.43 H (0.7-1.3) mg/dL Glucose 318 H 232 H 212 H (65-110) mg/dL Calcium 9.1 8.5 8.6 (8.4-10.2) mg/dL 07/15/25 Range/Units 11:00 Sodium 127 L (137-145) mmol/L Potassium 6.2 H* (3.4-5.0) mmol/L Chloride 95 L (98-107) mmol/L Carbon Dioxide 23 (22-30) mmol/L BUN 68 H (9-20) mg/dL Creatinine 2.60 H (0.7-1.3) mg/dL Glucose 265 H (65-110) mg/dL Calcium 8.2 L (8.4-10.2) mg/dL Adrenal panel 07/14/25 07/15/25 07/15/25 Range/Units 20:36 02:37 08:05 Sodium 132 L 130 L 132 L (137-145) mmol/L Potassium 6.6 H* 6.1 H* 6.4 H* (3.4-5.0) mmol/L Chloride 99 101 99 (98-107) mmol/L Carbon Dioxide 18 L 20 L 23 (22-30) mmol/L BUN 54 H D 60 H 65 H (9-20) mg/dL Creatinine 2.07 H 2.11 H 2.43 H (0.7-1.3) mg/dL Glucose 318 H 232 H 212 H (65-110) mg/dL Calcium 9.1 8.5 8.6 (8.4-10.2) mg/dL Total Bilirubin 1.6 H 1.7 H (0.2-1.3) mg/dL AST 1867 H 1655 H (17-59) U/L ALT 437 H 435 H (6-50) U/L Alkaline Phosphatase 85 67 (38-126) U/L Total Protein 6.5 6.3 (6.3-8.2) g/dL Albumin 3.9 3.4 L (3.5-5.1) g/dL 07/15/25 Range/Units 11:00 Sodium 127 L (137-145) mmol/L Potassium 6.2 H* (3.4-5.0) mmol/L Chloride 95 L (98-107) mmol/L Carbon Dioxide 23 (22-30) mmol/L BUN 68 H (9-20) mg/dL Creatinine 2.60 H (0.7-1.3) mg/dL Glucose 265 H (65-110) mg/dL Calcium 8.2 L (8.4-10.2) mg/dL Total Bilirubin (0.2-1.3) mg/dL AST (17-59) U/L ALT (6-50) U/L Alkaline Phosphatase (38-126) U/L Total Protein (6.3-8.2) g/dL Albumin (3.5-5.1) g/dL All other labs normal.
[2025-07-15] MEDS: BUPIVACAINE/EPINEPHRINE 0.5% 50 ML VIAL 30 ML INFILTRATE (15:46)
[2025-07-15] MEDS: HEPARIN SODIUM, PORCINE 10,000 UNITS/10 ML VIAL 5000 UNITS IRRIGATION (15:52)
--- NOTE | 2025-07-15 17:06 | W.PM.PROC2 ---
Procedure Note - Detailed Date of Procedure 07/15/25 Pre-op Diagnosis Hyperkalemia, acute kidney injury, inadequate venous access for dialysis Post-op Diagnosis Same Procedure Performed Placement non-tunneled right internal jugular central venous catheter under fluoro with the assistance of ultrasound for acute dialysis Surgeon Chris Keenan MD Anesthesia Local Indications Patient with hyperkalemia and rhabdomyolysis needing urgent dialysis. I was requested to place central venous catheter for acute dialysis. Findings Catheter tip in distal SVC Description of Procedure Patient was taken to the operating room and placed in a supine position. His head was elevated most of the time but did have to be lowered for supine position to cannulate the right internal jugular vein. The right neck was shaved with clippers. Prep and drape was carried out. Ultrasound was used but the reading was not recognizable. It seemed the only vessel available was the artery. We tried a few different settings and change the sleeves on the ultrasound probe. I did go ahead and cannulate the only vessel seen and it ended up being the artery. The needle was removed and pressure was held. I then proceeded directly lateral to this initial puncture and after 2 attempts cannulated venous blood with a good return. It is unclear why the vein did not present on the ultrasound. I was able to pass the guidewire in the internal jugular vein and, by fluoroscopy, the superior vena cava. I then checked the length needed to access the distal SVC right atrial junction. It appeared that our temporary dialysis catheter was satisfactory. It did have a side port for IV access as well. I then passed serial dilators before passing the 16 cm dual lumen temporary dialysis catheter. The dilators and the dialysis catheter were passed over the guidewire using fluoroscopy. The guidewire was then removed. Both of the dialysis ports aspirated blood readily and flushed easily. The intravenous side port also aspirated blood and flushed easily. Final flush was administered through each of the dialysis ports. The side port and both the dialysis ports were clamped and caps were placed. Additional local was infiltrated into the area of the flange. The flange was then sutured to the skin with 3-0 nylon. A hemostatic ring was placed around the entrance site of the central venous catheter. Dialysis sterile dressings were then applied. Patient was taken directly to hemodialysis. Portable chest x-ray is pending. Counts were correct x2 Implants 16 cm dual lumen temporary dialysis central venous catheter, non tunneled, with IV side port Estimated Blood Loss -10 Drains No Packing No Pathology None sent Complications None Condition Stable Disposition Other (Hemodialysis) [facility] Billing Surgery - Charge Forward: Surgery Billing (Placement non-tunneled right internal jugular central venous catheter under fluoro with the assistance of ultrasound for acute dialysis)
[2025-07-15 17:23] LABS: Anion Gap 9 mmol/L (4-12); Blood Urea Nitrogen 76 mg/dL (9-20); Calcium 7.8 mg/dL (8.4-10.2); Carbon Dioxide 23 mmol/L (22-30); Chloride 94 mmol/L (98-107); Estimated CRCL calculation 36 ml/min; Estimated Glomerular Filt Rate 20; Glucose 208 mg/dL (65-110); Potassium 5.6 mmol/L (3.4-5.0); Sodium 126 mmol/L (137-145)
[2025-07-15] MEDS: RIVAROXABAN 20 MG TABLET PO (21:19)
[2025-07-16] VITALS (34 sets, daily range): BP systolic 103–148; BP diastolic 48–73; PULSE 78–97; RESP 16–24; TEMP 36.4–37; O2SAT 90–98
[2025-07-16 03:48] LABS: Hematocrit 32.8 % (42.0-52.0); Hemoglobin 10.8 g/dL (14.0-18.0); Immature Granulocyte Percent A 0.9 % (0-0.5); Lymphocytes Absolute Auto 1.12 K/mm3 (0.9-3.2); Mean Corpuscular HGB Conc 32.9 g/dl (32-36); Mean Corpuscular Hemoglobin 31.1 pg (26-34); Mean Corpuscular Volume 94.5 fl (80-100); Nucleated Red Blood Cells Absolute Auto 0.000 K/mm3 (0.0-0.012); Nucleated Red Blood Cells Perc 0.0 % (0.0-0.2); Platelet Count Result 180 k/mm3 (150-375); Red Blood Count 3.47 M/mm3 (4.6-6.20); White Blood Count 18.0 K/mm3 (4.5-10.0)
[2025-07-16 04:01] LABS: Alanine Aminotransferase 395 U/L (6-50); Albumin Level 2.7 g/dL (3.5-5.1); Alkaline Phosphatase 59 U/L (38-126); Anion Gap 6 mmol/L (4-12); Bilirubin,Total 0.8 mg/dL (0.2-1.3); Blood Urea Nitrogen 71 mg/dL (9-20); Calcium 7.5 mg/dL (8.4-10.2); Carbon Dioxide 23 mmol/L (22-30); Chloride 96 mmol/L (98-107); Estimated CRCL calculation 34 ml/min; Estimated Glomerular Filt Rate 19; Glucose 181 mg/dL (65-110); Magnesium 2.1 mg/dL (1.6-2.3); Potassium 5.3 mmol/L (3.4-5.0); Sodium 125 mmol/L (137-145); Total Protein 5.2 g/dL (6.3-8.2)
[2025-07-16 04:50] LABS: Aspartate Amino Transferase 1290 U/L (17-59); Creatine Kinase > 16000 U/L (55-170)
--- NOTE | 2025-07-16 07:14 | PM.IMPN ---
Progress Note: A&P Assessment and Plan (1) Rhabdomyolysis: Qualifiers: Rhabdomyolysis type: non-traumatic Qualified Code(s): M62.82 - Rhabdomyolysis Code(s): M62.82 - Rhabdomyolysis Status: Acute Assessment and Plan: due to prolonged time down s/p 3L IV fluids in the ER s/p IV fluids CK > 16k on admission and this AM patient now receiving hemodialysis Nephrology following trend CK levels (2) Acute kidney injury: Code(s): N17.9 - Acute kidney failure, unspecified Status: Acute Assessment and Plan: due to acute rhabdomyolysis BUN 76 and Cr 3.08 on AM labs Nephrology following s/p temporary line placement by surgery team on hemodialysis, 2nd session planned for today AM labs (3) Acute hyperkalemia: Code(s): E87.5 - Hyperkalemia Status: Acute Assessment and Plan: K 6.6 on arrival, Patient received sodium bicarb, calcium, Lokelma, insulin and dextrose in the ER and again overnight in the IMU Telemetry despite medical management patient's potassium level was not improving Nephrology was consulted and now following patient had temporary HD line placed and was started on hemodialysis on 07/15 K this AM was 5.3 BMP in am (4) Sepsis: Qualifiers: Acute renal failure type: unspecified Sepsis acute organ dysfunction status: with acute organ dysfunction Sepsis type: sepsis due to unspecified organism Severe sepsis acute organ dysfunction type: acute renal failure Severe sepsis shock status: without septic shock Qualified Code(s): A41.9 - Sepsis, unspecified organism; R65.20 - Severe sepsis without septic shock; N17.9 - Acute kidney failure, unspecified Code(s): A41.9 - Sepsis, unspecified organism Status: Acute Assessment and Plan: Patient meets sepsis criteria with tachycardia, tachypnea and leukocytosis. Exact source of infection is not known. Leukocytosis could be due to leukemoid reaction verses acute infection. He urine does not appear to be acutely infected. He does have open wounds but they do not have any obvious surrounding erythema to suggest acute infection. Symptoms could simply be due to combination of volume depletion and respiratory alkalosis. Patient recieved cefepime and vancomycin while in the ED change to IV rocephin for possible UTI f/u blood cultures patients scrotal wound reassed and there is significant surrounding erythema, will add IV vancomycin for broader coverage AM labs (5) Type 2 diabetes mellitus with hyperglycemia, without long-term current use of insulin: Code(s): E11.65 - Type 2 diabetes mellitus with hyperglycemia Status: Acute Assessment and Plan: accu checks avoid hypoglycemia SSI while inpatient (6) Lactic acidosis: Code(s): E87.20 - Acidosis, unspecified Status: Acute Assessment and Plan: most likely due to rhabdomyolysis or possible sepsis Improving repeat level WNL (7) Chronic anticoagulation: Code(s): Z79.01 - care home (current) use of anticoagulants Status: Acute Assessment and Plan: continue home Xarelto (8) Transaminitis: Code(s): R74.01 - Elevation of levels of liver transaminase levels Status: Acute Assessment and Plan: most likely due to rhabdomyolysis or possible sepsis hold home statin AM labs (9) Leukocytosis: Qualifiers: Leukocytosis type: unspecified Qualified Code(s): D72.829 - Elevated white blood cell count, unspecified Code(s): D72.829 - Elevated white blood cell count, unspecified Status: Acute Assessment and Plan: s/p IV vancomycin and cefepime f/u urine cultures f/u blood cultures continue IV rocephin, add IV vancomycin AM labs (10) Chronic hyponatremia: Code(s): E87.1 - Hypo-osmolality and hyponatremia Status: Acute Assessment and Plan: s/p IV fluids nephrology following dialysis monitor labs (11) Hematoma of right upper extremity: Code(s): S40.021A - Contusion of right upper arm, initial encounter Status: Acute Assessment and Plan: Monitor neuro checks pain control (12) Decubital ulcer: Qualifiers: Pressure injury location: unspecified location Pressure injury stage: unstageable Qualified Code(s): L89.95 - Pressure ulcer of unspecified site, unstageable Code(s): L89.90 - Pressure ulcer of unspecified site, unspecified stage Status: Acute Assessment and Plan: wound care consult (13) Nonischemic cardiomyopathy: Code(s): I42.8 - Other cardiomyopathies Status: Acute Assessment and Plan: hold home diuretics and ACEI due to KAITLIN and hyperkalemia monitor fluid volume status closely (14) Obstructive sleep apnea: Code(s): G47.33 - Obstructive sleep apnea (adult) (pediatric) Status: Acute Assessment and Plan: Patient may need CPAP therapy or supplemental oxygen but is currently maintaining O2 sats at this time. Will he would benefit from polysomnogram as outpatient to further delineate/treat his underlying obstructive sleep apnea. (15) Cellulitis of scrotum: Code(s): N49.2 - Inflammatory disorders of scrotum Status: Acute Plan patient with wound to left side of scrotum with significant surrounding erythema wound care was consulted continue IV rocephin add IV vancomycin AM labs Subjective Date/time seen: 07/16/25 07:14 Interval history: 69 year old male with PMH of morbid obesity with BMI greater than 50, diastolic heart failure, paroxysmal atrial fibrillation, type 2 diabetes mellitus and obstructive sleep apnea who presented to the ER from home via EMS after being found on the ground. He was admitted with acute rhabdomyolysis. hyperkalemia, KAITLIN, possible sepsis due to unknown source, leukocytosis, lactic acidosis and metabolic acidosis. Patient seen and examined for follow up. Patient seen lying in bed, in no acute distress. Patient had a temporary dialysis catheter placed by surgery yesterday and received hemodialysis per nephrology. Patient's potassium improved to 5.3 this AM. Patient's CK level is still > 16k. Patient's white blood cell count still elevated at 18k. Patients wounds reassessed and patient appears to have surrounding cellulitis to the wound on his scrotum. IV Vancomycin added to IV rocephin for broader coverage. Patient with pitting edema present to his upper extremities, discussed with nurse to elevate bilateral arms. Patient reports no bowel movement since admission, bowel regimen ordered. PT/OT ordered to eval and treat. Nephrology following patient. Review of Systems Review of Systems: 12 systems were reviewed with pertinent positives and negatives per HPI. Except as documented in the HPI, all other systems were reviewed and are negative. Exam Narrative: Weight 188.6 kg BMI 53.4 Const: Other: Morbidly obese, acutely ill-appearing, disheveled HENMT: Other: Mucous membranes are dry, crowded posterior oropharynx, no oral pharyngeal erythema, head is normocephalic atraumatic Eyes: Other: Pupils are equal and reactive, no scleral icterus, no conjunctival pallor Neck: Other: Large neck circumference, no lymphadenopathy, trachea midline Resp: Other: clear to auscultation bilaterally, no increased work of breathing Cardio: Other: RRR, 2+ bilateral radial and pedal pulses, no murmur, no JVD GI: Other: Soft, nontender, obese, normoactive bowel sounds : Other: Uncircumcised male Correa catheter present, erythematous moist rash bilateral inguinal folds and pannus folds, significant erythema to bilateral scrotum will with ulceration to the right scrotum with eschar (please see nursing documentation for photos in measurements) Urinary Catheter: Urinary Catheter: patent and draining Skin: Other: Candidiasis noted to pannus folds and bilateral inguinal folds, right buttock erythema that is blanchable and extend extending down into the posterior upper thigh with associated skin shearing, and as a ulcer of the left elbow with overlying eschar unable to stage, right scrotal wound Neuro: Other: Alert oriented to person place and time, speech is clear, no facial asymmetry, no localizing neurologic deficits noted the generalized weakness of the extremities, sensation is intact, patient reports hallucinations Extrem: Other: No cyanosis, marked bruising to the right medial humerus down into the ventral forearm, 4/5 statistician applied strength bilateral, 2/5 straight leg strength on the left leg, 1 out of 5 strength on the right leg. pitting edema present to bilateral upper extremities Psych: Other: Appropriate mood and affect, pleasant and cooperative, fair judgment and insight, visual hallucinations reported prior to arrival to the ER patient is not hallucinating currently Objective Data Vital Signs Vital Signs: Vital Signs - 24 hr 07/15/25 08:00 07/15/25 08:00 07/15/25 08:11 Temperature 97.6 F Pulse Rate 90 93 Respiratory Rate 22 H Blood Pressure 121/67 Pulse Oximetry 94 95 Oxygen Delivery Room Air Oxygen Flow Rate 07/15/25 09:04 07/15/25 09:09 07/15/25 09:17 Temperature Pulse Rate 80 86 88 Respiratory Rate 20 20 Blood Pressure Pulse Oximetry Oxygen Delivery Oxygen Flow Rate 07/15/25 09:23 07/15/25 10:00 07/15/25 10:15 Temperature Pulse Rate 91 90 88 Respiratory Rate 20 20 Blood Pressure Pulse Oximetry Oxygen Delivery Oxygen Flow Rate 07/15/25 11:36 07/15/25 12:00 07/15/25 14:00 Temperature 97.8 F Pulse Rate 83 87 89 Respiratory Rate 26 H Blood Pressure 132/60 Pulse Oximetry 98 Oxygen Delivery Oxygen Flow Rate 07/15/25 14:35 07/15/25 15:18 07/15/25 15:30 Temperature 97.6 F Pulse Rate 80 85 Respiratory Rate 20 20 Blood Pressure 89/45 L 115/63 111/64 Pulse Oximetry 95 93 94 Oxygen Delivery Room Air Room Air Room Air Oxygen Flow Rate 07/15/25 15:35 07/15/25 15:39 07/15/25 15:45 Temperature Pulse Rate 84 86 85 Respiratory Rate 20 20 20 Blood Pressure 107/72 115/63 124/66 Pulse Oximetry 94 95 95 Oxygen Delivery Room Air Nasal Cannula Nasal Cannula Oxygen Flow Rate 2 2 07/15/25 15:50 07/15/25 15:56 07/15/25 16:01 Temperature Pulse Rate 85 87 87 Respiratory Rate 20 20 20 Blood Pressure 128/75 123/71 128/72 Pulse Oximetry 95 96 95 Oxygen Delivery Nasal Cannula Nasal Cannula Nasal Cannula Oxygen Flow Rate 2 2 2 07/15/25 16:06 07/15/25 16:11 07/15/25 16:16 Temperature Pulse Rate 90 96 93 Respiratory Rate 20 20 20 Blood Pressure 128/73 129/78 141/80 H Pulse Oximetry 95 96 95 Oxygen Delivery Nasal Cannula Nasal Cannula Nasal Cannula Oxygen Flow Rate 2 2 2 07/15/25 16:21 07/15/25 16:26 07/15/25 16:32 Temperature Pulse Rate 91 87 88 Respiratory Rate 20 20 20 Blood Pressure 154/76 H 164/73 H 147/69 H Pulse Oximetry 95 95 94 Oxygen Delivery Nasal Cannula Nasal Cannula Room Air Oxygen Flow Rate 2 2 07/15/25 16:50 07/15/25 17:15 07/15/25 17:30 Temperature 97.9 F Pulse Rate 88 87 87 Respiratory Rate 16 Blood Pressure 80/58 L 108/62 113/73 Pulse Oximetry 96 Oxygen Delivery Oxygen Flow Rate 07/15/25 17:45 07/15/25 18:00 07/15/25 18:00 Temperature Pulse Rate 93 88 87 Respiratory Rate Blood Pressure 93/67 L 97/68 L Pulse Oximetry Oxygen Delivery Oxygen Flow Rate 07/15/25 18:15 07/15/25 18:30 07/15/25 18:46 Temperature Pulse Rate 86 85 87 Respiratory Rate Blood Pressure 94/70 L 92/76 L 90/70 L Pulse Oximetry Oxygen Delivery Oxygen Flow Rate 07/15/25 19:00 07/15/25 19:10 07/15/25 19:48 Temperature 97.9 F 97.7 F Pulse Rate 88 90 84 Respiratory Rate 18 24 H Blood Pressure 87/74 L 116/74 123/59 L Pulse Oximetry 96 95 Oxygen Delivery Oxygen Flow Rate 07/15/25 20:00 07/15/25 20:00 07/15/25 22:00 Temperature Pulse Rate 88 86 Respiratory Rate Blood Pressure Pulse Oximetry Oxygen Delivery Room Air Oxygen Flow Rate 07/15/25 23:39 07/16/25 00:00 07/16/25 00:00 Temperature 97.8 F Pulse Rate 83 84 Respiratory Rate 28 H Blood Pressure 128/58 L Pulse Oximetry 92 Oxygen Delivery Room Air Oxygen Flow Rate 07/16/25 02:00 07/16/25 04:00 07/16/25 04:00 Temperature 97.9 F Pulse Rate 84 84 Respiratory Rate 24 H Blood Pressure 113/59 L Pulse Oximetry 94 Oxygen Delivery Room Air Oxygen Flow Rate 07/16/25 04:00 07/16/25 06:00 Temperature Pulse Rate 85 80 Respiratory Rate Blood Pressure Pulse Oximetry Oxygen Delivery Oxygen Flow Rate Intake/Output Intake/Output: Intake & Output 07/13/25 07/14/25 07/15/25 07/16/25 23:59 23:59 23:59 23:59 Intake Total 3050 1580 1800 Output Total 900 300 Balance 3050 680 1500 Meds/Results Medications: Active Medications Generic Name Dose Route Start Last Admin Trade Name Freq PRN Reason Stop Dose Admin Amiodarone HCl 200 mg 07/15/25 02:30 07/15/25 03:29 Amiodarone Hcl 200 Mg Tablet PO 200 mg DAILY SALMA Administration Carvedilol 12.5 mg 07/15/25 09:00 07/15/25 17:27 Carvedilol 12.5 Mg Tablet PO Not Given BID SALMA Dextrose 12.5 gm 07/15/25 01:20 Dextrose 50% 25 Gm/50 Ml Syringe IV PUSH PRN PRN Hypoglycemia Protocol Epoetin Sd-epbx 10,000 units 07/16/25 17:05 Epoetin Sd-Epbx 10,000 Units/Ml Vial IV PUSH 07/16/25 17:06 ONCE ONE Glucagon 1 mg 07/15/25 01:20 Glucagon For Inj 1 Mg Vial IM PRN PRN Hypoglycemia Protocol Glucose 15 gm 07/15/25 01:20 Glucose Oral Gel 15 Gm Of Glucse In 37.5 Gm Tube PO PRN PRN Hypoglycemia Protocol Dextrose 1,000 mls @ 100 mls/hr 07/15/25 01:20 Dextrose 5% 1,000 Ml IVPB PRN PRN Hypoglycemia Protocol Ceftriaxone Sodium 1 gm/ 50 mls @ 100 mls/hr 07/15/25 11:45 07/15/25 12:01 Sodium Chloride IVPB 100 mls/hr DAILY SALMA Administration Albumin Human 50 mls @ 999 mls/hr 07/15/25 15:32 Albutein IVPB 08/14/25 15:31 Q10M PRN HYPOTENSION Insulin Aspart 3 - 6 units 07/15/25 08:00 07/15/25 17:27 Insulin Aspart (*Bkc) 100 Units/Ml SUB-Q Not Given TIDWM SALMA Protocol Insulin Aspart 1 - 3 units 07/15/25 21:00 07/15/25 21:19 Insulin Aspart (*Bkc) 100 Units/Ml SUB-Q 1 units HS SALMA Administration Protocol Rivaroxaban 20 mg 07/15/25 17:00 07/15/25 21:19 Rivaroxaban 20 Mg Tablet PO 20 mg DAILY@1700 [facility] Administration Sodium Zirconium Cyclosilicate 10 gm 07/15/25 10:00 07/15/25 17:26 Sodium Zirconium Cyclosilicate 10 Gm Powd.Pack PO Not Given On Hold: 07/15/25 15:36 TID@1000,1500,2200 [facility] Radiology Results: ITS Impressions Cervical Spine CT 07/15/25 07:00 IMPRESSION: 1. No acute abnormality of the cervical spine. 2: Severe cervical spondylosis. Head CT 07/15/25 07:03 IMPRESSION: 1. No acute intracranial abnormality. Shoulder X-Ray 07/15/25 07:39 Impression: 1: No acute fracture. Wrist X-Ray 07/15/25 07:40 Impression: 1: No acute fracture. Elbow X-Ray 07/15/25 07:41 Impression: 1: No acute fracture. Renal Ultrasound 07/15/25 13:09 Impression: 1: Unremarkable renal ultrasound. No stones, masses or hydronephrosis. Chest X-Ray 07/15/25 17:14 Impression: Mild CHF Central Venous Line 07/15/25 17:21 IMPRESSION: 1. Fluoroscopy utilized during reported port catheter insertion. See procedure note for further detail. Labs Labs: Laboratory Results - last 24 hr 07/15/25 07/15/25 07/15/25 02:36 07:44 08:05 WBC RBC Hgb Hct MCV MCH MCHC RDW Plt Count MPV Immature Gran % (Auto) Neut % (Auto) Lymph % (Auto) Barton % (Auto) Eos % (Auto) Baso % (Auto) Lymph # (Auto) Barton # (Auto) Eos # (Auto) Baso # (Auto) Abs Immat Gran (auto) Absolute Neuts (auto) Absolute Nucleated RBC Nucleated RBC % Sodium 132 L Potassium 6.4 H* Chloride 99 Carbon Dioxide 23 Anion Gap 10 BUN 65 H Creatinine 2.43 H Estim Creat Clear Calc 45 Estimated GFR 26 L Glucose 212 H POC Capillary Glucose 199 H Lactic Acid Calcium 8.6 Phosphorus Magnesium Total Bilirubin AST ALT Alkaline Phosphatase Total Creatine Kinase Total Protein Albumin Urine Eosinophils U Random Total Protein Ur Random Sodium Ur Random Urea Urine Creatinine Protein/Creat Ratio 2 Hep Bs Antigen Negative Hep Bs Antibody Negative Hep B Core Total Ab Cancelled 07/15/25 07/15/25 07/15/25 10:10 11:00 11:19 WBC RBC Hgb Hct MCV MCH MCHC RDW Plt Count MPV Immature Gran % (Auto) Neut % (Auto) Lymph % (Auto) Barton % (Auto) Eos % (Auto) Baso % (Auto) Lymph # (Auto) Barton # (Auto) Eos # (Auto) Baso # (Auto) Abs Immat Gran (auto) Absolute Neuts (auto) Absolute Nucleated RBC Nucleated RBC % Sodium 127 L Potassium 6.2 H* Chloride 95 L Carbon Dioxide 23 Anion Gap 9 BUN 68 H Creatinine 2.60 H Estim Creat Clear Calc 42 Estimated GFR 24 L Glucose 265 H POC Capillary Glucose 269 H Lactic Acid Calcium 8.2 L Phosphorus Magnesium Total Bilirubin AST ALT Alkaline Phosphatase Total Creatine Kinase > 80761 H Cancelled Total Protein Albumin Urine Eosinophils U Random Total Protein Ur Random Sodium Ur Random Urea Urine Creatinine Protein/Creat Ratio 2 Hep Bs Antigen Hep Bs Antibody Hep B Core Total Ab 07/15/25 07/15/25 07/15/25 11:30 11:30 17:04 WBC RBC Hgb Hct MCV MCH MCHC RDW Plt Count MPV Immature Gran % (Auto) Neut % (Auto) Lymph % (Auto) Barton % (Auto) Eos % (Auto) Baso % (Auto) Lymph # (Auto) Barton # (Auto) Eos # (Auto) Baso # (Auto) Abs Immat Gran (auto) Absolute Neuts (auto) Absolute Nucleated RBC Nucleated RBC % Sodium 126 L Potassium 5.6 H Chloride 94 L Carbon Dioxide 23 Anion Gap 9 BUN 76 H Creatinine 3.08 H Estim Creat Clear Calc 36 Estimated GFR 20 L Glucose 208 H POC Capillary Glucose Lactic Acid Calcium 7.8 L Phosphorus Magnesium Total Bilirubin AST ALT Alkaline Phosphatase Total Creatine Kinase Total Protein Albumin Urine Eosinophils Rare U Random Total Protein 67 Ur Random Sodium 18 Ur Random Urea 83 Urine Creatinine 239.5 240.3 Protein/Creat Ratio 2 0.28 H Hep Bs Antigen Hep Bs Antibody Hep B Core Total Ab 07/15/25 07/16/25 07/16/25 20:13 03:44 06:43 WBC 18.0 H RBC 3.47 L Hgb 10.8 L D Hct 32.8 L MCV 94.5 MCH 31.1 MCHC 32.9 RDW 14.4 Plt Count 180 MPV 11.0 H Immature Gran % (Auto) 0.9 H Neut % (Auto) 82.3 H Lymph % (Auto) 6.2 L Barton % (Auto) 10.4 H Eos % (Auto) 0.1 Baso % (Auto) 0.1 L Lymph # (Auto) 1.12 Barton # (Auto) 1.9 H Eos # (Auto) 0.0 Baso # (Auto) 0.0 Abs Immat Gran (auto) 0.17 H Absolute Neuts (auto) 14.8 H Absolute Nucleated RBC 0.000 Nucleated RBC % 0.0 Sodium 125 L Potassium 5.3 H Chloride 96 L Carbon Dioxide 23 Anion Gap 6 BUN 71 H Creatinine 3.24 H Estim Creat Clear Calc 34 Estimated GFR 19 L Glucose 181 H POC Capillary Glucose 219 H 184 H Lactic Acid 1.1 Calcium 7.5 L Phosphorus 7.8 H Magnesium 2.1 Total Bilirubin 0.8 AST 1290 H ALT 395 H Alkaline Phosphatase 59 Total Creatine Kinase > 45989 H Total Protein 5.2 L Albumin 2.7 L Urine Eosinophils U Random Total Protein Ur Random Sodium Ur Random Urea Urine Creatinine Protein/Creat Ratio 2 Hep Bs Antigen Hep Bs Antibody Hep B Core Total Ab Quality VTE Prophylaxis VTE prophylaxis: pharmacologic ordered (Continue home Xarelto)
--- NOTE | 2025-07-16 09:00 | PC.NURSE ---
Ceftriaxone given in dialysis.
[2025-07-16 09:08] LABS: Hep B Core Ab, Total Negative (Negative)
[2025-07-16] MEDS: AMIODARONE HCL 200 MG TABLET PO (10:11)
--- NOTE | 2025-07-16 11:37 | P.PNNP_ITS ---
Progress Note: A&P Assessment and Plan (1) Acute kidney injury: Code(s): N17.9 - Acute kidney failure, unspecified Status: Acute Assessment and Plan: * as noted by admission labs - creatinine of 2.07mg/dL * progressively worsening as noted by trend of labs since hospitalization began * complicated by persistent hyperkalemia unresponsive to medical therapy and declining UOP * baseline creatinine normal: * 1.16mg/dL in October 2024 (by outpatient labs by PCP) * 1.30mg/dL in October 2022 ([facility]) * multifactorial etiology: * rhabdomyolysis * LAURY-I use prior to admission * diuretic use (lasix + spironolactone) prior to admission * prerenal factors(?) * infection/early sepsis(?) * other(?) * urine output is very low. * IV fluids fail to improve CK, creatinine, or urine output. * Attempts at dialysis yesterday. Received about an hour. He will get another treatment today. * follow trend of repeat labs and UOP (2) Hyperkalemia: Code(s): E87.5 - Hyperkalemia Status: Acute Assessment and Plan: * recurrent since admission * poor response to medical management despite multiple rounds of therapy to date * Received dialysis yesterday to help potassium. * He has some still a bit high at 5.3 in spite of Lokelma. * Will get another treatment today. (3) Rhabdomyolysis: Code(s): M62.82 - Rhabdomyolysis Status: Acute Assessment and Plan: * as noted by elevated CPK * likely related to prolonged downtime from fall * contributing to hyperkalemia and KAITLIN * AST and ALT are dropping some indicating some improvement in the CK this CK itself is greater than 16,000 (4) Sepsis: Qualifiers: Acute renal failure type: unspecified Sepsis acute organ dysfunction status: with acute organ dysfunction Sepsis type: sepsis due to unspecified organism Severe sepsis acute organ dysfunction type: acute renal failure Severe sepsis shock status: without septic shock Qualified Code(s): A41.9 - Sepsis, unspecified organism; R65.20 - Severe sepsis without septic shock; N17.9 - Acute kidney failure, unspecified Code(s): A41.9 - Sepsis, unspecified organism Status: Acute Assessment and Plan: * suspected due to elevated WBC, lactic acidosis, tachycardia, tachypnea on admission * no clear source at this time * follow culture data * follow hemodynamics * on empiric antibiotics (5) Atrial fibrillation and flutter: Code(s): I48.91 - Unspecified atrial fibrillation; I48.92 - Unspecified atrial flutter Status: Chronic Assessment and Plan: * paroxysmal in nature * on amiodarone * on anticoagulation * xarelto on hold at this time (6) Transaminitis: Code(s): R74.01 - Elevation of levels of liver transaminase levels Status: Acute Assessment and Plan: * presumably related to rhabdomyolysis * holding statin * follow trend of LFTs (7) Hypertension: Code(s): I10 - Essential (primary) hypertension Status: Chronic Assessment and Plan: * reasonable control * follow trend of hemodynamics (8) Diabetes: Code(s): E11.9 - Type 2 diabetes mellitus without complications Status: Chronic Assessment and Plan: * follow accu-cheks * glycemic control per hospitalist I will continue to follow the patient with you while he remains hospitalized and make further recommendations as deemed necessary. Thank you for allowing me to participate in the care of this patient. Subjective Date/time seen: 07/16/25 11:37 Interval history: patient is lying in bed. No chest pain or shortness of breath will soon be going to dialysis Review of Systems Cardiovascular: Cardiovascular: Reports no additional cardiovascular complaints Respiratory: Respiratory: Reports no additional respiratory complaints Gastrointestinal: Gastrointestinal: Reports no additional gastrointestinal complaints Genitourinary: Genitourinary: Reports no additional male genitourinary complaints Exam Narrative: WDWN male in NAD skin no rash. Some chronic actinic changes on his forearm head ncat lungs clear cor reg no rub abd BS+ nontender and soft ext trace bilateral edema. Objective Data Vital Signs Vital Signs: Vital Signs - 24 hr 07/15/25 12:00 07/15/25 14:00 07/15/25 14:35 Temperature 97.6 F Pulse Rate 87 89 80 Respiratory Rate 20 Blood Pressure 89/45 L Pulse Oximetry 95 Oxygen Delivery Room Air Oxygen Flow Rate 07/15/25 15:18 07/15/25 15:30 07/15/25 15:35 Temperature Pulse Rate 85 84 Respiratory Rate 20 20 Blood Pressure 115/63 111/64 107/72 Pulse Oximetry 93 94 94 Oxygen Delivery Room Air Room Air Room Air Oxygen Flow Rate 07/15/25 15:39 07/15/25 15:45 07/15/25 15:50 Temperature Pulse Rate 86 85 85 Respiratory Rate 20 20 20 Blood Pressure 115/63 124/66 128/75 Pulse Oximetry 95 95 95 Oxygen Delivery Nasal Cannula Nasal Cannula Nasal Cannula Oxygen Flow Rate 2 2 2 07/15/25 15:56 07/15/25 16:01 07/15/25 16:06 Temperature Pulse Rate 87 87 90 Respiratory Rate 20 20 20 Blood Pressure 123/71 128/72 128/73 Pulse Oximetry 96 95 95 Oxygen Delivery Nasal Cannula Nasal Cannula Nasal Cannula Oxygen Flow Rate 2 2 2 07/15/25 16:11 07/15/25 16:16 07/15/25 16:21 Temperature Pulse Rate 96 93 91 Respiratory Rate 20 20 20 Blood Pressure 129/78 141/80 H 154/76 H Pulse Oximetry 96 95 95 Oxygen Delivery Nasal Cannula Nasal Cannula Nasal Cannula Oxygen Flow Rate 2 2 2 07/15/25 16:26 07/15/25 16:32 07/15/25 16:50 Temperature 97.9 F Pulse Rate 87 88 88 Respiratory Rate 20 20 16 Blood Pressure 164/73 H 147/69 H 80/58 L Pulse Oximetry 95 94 96 Oxygen Delivery Nasal Cannula Room Air Oxygen Flow Rate 2 07/15/25 17:15 07/15/25 17:30 07/15/25 17:45 Temperature Pulse Rate 87 87 93 Respiratory Rate Blood Pressure 108/62 113/73 93/67 L Pulse Oximetry Oxygen Delivery Oxygen Flow Rate 07/15/25 18:00 07/15/25 18:00 07/15/25 18:15 Temperature Pulse Rate 88 87 86 Respiratory Rate Blood Pressure 97/68 L 94/70 L Pulse Oximetry Oxygen Delivery Oxygen Flow Rate 07/15/25 18:30 07/15/25 18:46 07/15/25 19:00 Temperature Pulse Rate 85 87 88 Respiratory Rate Blood Pressure 92/76 L 90/70 L 87/74 L Pulse Oximetry Oxygen Delivery Oxygen Flow Rate 07/15/25 19:10 07/15/25 19:48 07/15/25 20:00 Temperature 97.9 F 97.7 F Pulse Rate 90 84 Respiratory Rate 18 24 H Blood Pressure 116/74 123/59 L Pulse Oximetry 96 95 Oxygen Delivery Room Air Oxygen Flow Rate 07/15/25 20:00 07/15/25 22:00 07/15/25 23:39 Temperature 97.8 F Pulse Rate 88 86 83 Respiratory Rate 28 H Blood Pressure 128/58 L Pulse Oximetry 92 Oxygen Delivery Oxygen Flow Rate 07/16/25 00:00 07/16/25 00:00 07/16/25 02:00 Temperature Pulse Rate 84 84 Respiratory Rate Blood Pressure Pulse Oximetry Oxygen Delivery Room Air Oxygen Flow Rate 07/16/25 04:00 07/16/25 04:00 07/16/25 04:00 Temperature 97.9 F Pulse Rate 84 85 Respiratory Rate 24 H Blood Pressure 113/59 L Pulse Oximetry 94 Oxygen Delivery Room Air Oxygen Flow Rate 07/16/25 06:00 07/16/25 08:00 07/16/25 10:11 Temperature 98.6 F Pulse Rate 80 78 83 Respiratory Rate 20 Blood Pressure 121/67 Pulse Oximetry 94 Oxygen Delivery Oxygen Flow Rate Intake/Output Intake/Output: Intake & Output 07/13/25 07/14/25 07/15/25 07/16/25 23:59 23:59 23:59 23:59 Intake Total 3050 1580 1800 Output Total 900 300 Balance 3050 680 1500 Meds/Results Medications: Active Medications Generic Name Dose Route Start Last Admin Trade Name Freq PRN Reason Stop Dose Admin Acetaminophen 1,000 mg 07/16/25 09:58 Acetaminophen 500 Mg Tablet PO Q6H PRN Mild Pain (1-3) or Fever Amiodarone HCl 200 mg 07/15/25 02:30 07/16/25 10:11 Amiodarone Hcl 200 Mg Tablet PO 200 mg DAILY SALMA Administration Carvedilol 12.5 mg 07/15/25 09:00 07/15/25 17:27 Carvedilol 12.5 Mg Tablet PO Not Given BID SALMA Dextrose 12.5 gm 07/15/25 01:20 Dextrose 50% 25 Gm/50 Ml Syringe IV PUSH PRN PRN Hypoglycemia Protocol Epoetin Sd-epbx 10,000 units 07/16/25 17:05 Epoetin Sd-Epbx 10,000 Units/Ml Vial IV PUSH 07/16/25 17:06 ONCE ONE Glucagon 1 mg 07/15/25 01:20 Glucagon For Inj 1 Mg Vial IM PRN PRN Hypoglycemia Protocol Glucose 15 gm 07/15/25 01:20 Glucose Oral Gel 15 Gm Of Glucse In 37.5 Gm Tube PO PRN PRN Hypoglycemia Protocol Heparin Sodium (Porcine) 500 units 07/16/25 09:10 Heparin Sodium 1,000 Units/Ml Vial IV PUSH 07/16/25 12:11 Q1H SALMA Dextrose 1,000 mls @ 100 mls/hr 07/15/25 01:20 Dextrose 5% 1,000 Ml IVPB PRN PRN Hypoglycemia Protocol Ceftriaxone Sodium 1 gm/ 50 mls @ 100 mls/hr 07/15/25 11:45 07/15/25 12:01 Sodium Chloride IVPB 100 mls/hr DAILY SALMA Administration Albumin Human 50 mls @ 999 mls/hr 07/15/25 15:32 Albutein IVPB 08/14/25 15:31 Q10M PRN HYPOTENSION Insulin Aspart 3 - 6 units 07/15/25 08:00 07/16/25 08:36 Insulin Aspart (*Bkc) 100 Units/Ml SUB-Q Not Given TIDWM [facility] Protocol Insulin Aspart 1 - 3 units 07/15/25 21:00 07/15/25 21:19 Insulin Aspart (*Bkc) 100 Units/Ml SUB-Q 1 units HS SALMA Administration Protocol Magnesium Hydroxide 30 ml 07/16/25 08:39 Magnesium Hydroxide Susp 30 Ml Udc PO DAILY PRN Constipation Polyethylene Glycol 17 gm 07/16/25 09:00 Polyethylene Glycol 3350 17 Gm Powd.Pack PO QAM SALMA Rivaroxaban 20 mg 07/15/25 17:00 07/15/25 21:19 Rivaroxaban 20 Mg Tablet PO 20 mg DAILY@1700 SALMA Administration Sodium Zirconium Cyclosilicate 10 gm 07/15/25 10:00 07/15/25 17:26 Sodium Zirconium Cyclosilicate 10 Gm Powd.Pack PO Not Given On Hold: 07/15/25 15:36 TID@1000,1500,2200 [facility] Vancomycin HCl 1 each 07/16/25 10:24 Vancomycin For Hemodialysis IVPB PRN PRN Vancomycin Protocol Radiology Results: ITS Impressions Cervical Spine CT 07/15/25 07:00 IMPRESSION: 1. No acute abnormality of the cervical spine. 2: Severe cervical spondylosis. Head CT 07/15/25 07:03 IMPRESSION: 1. No acute intracranial abnormality. Shoulder X-Ray 07/15/25 07:39 Impression: 1: No acute fracture. Wrist X-Ray 07/15/25 07:40 Impression: 1: No acute fracture. Elbow X-Ray 07/15/25 07:41 Impression: 1: No acute fracture. Renal Ultrasound 07/15/25 13:09 Impression: 1: Unremarkable renal ultrasound. No stones, masses or hydronephrosis. Chest X-Ray 07/15/25 17:14 Impression: Mild CHF Central Venous Line 07/15/25 17:21 IMPRESSION: 1. Fluoroscopy utilized during reported port catheter insertion. See procedure note for further detail. Labs Labs: Laboratory Results - last 24 hr 07/15/25 07/15/25 07/15/25 08:05 10:10 11:00 WBC RBC Hgb Hct MCV MCH MCHC RDW Plt Count MPV Immature Gran % (Auto) Neut % (Auto) Lymph % (Auto) [place] % (Auto) Eos % (Auto) Baso % (Auto) Lymph # (Auto) [place] # (Auto) Eos # (Auto) Baso # (Auto) Abs Immat Gran (auto) Absolute Neuts (auto) Absolute Nucleated RBC Nucleated RBC % Sodium 127 L Potassium 6.2 H* Chloride 95 L Carbon Dioxide 23 Anion Gap 9 BUN 68 H Creatinine 2.60 H Estim Creat Clear Calc 42 Estimated GFR 24 L Glucose 265 H POC Capillary Glucose Lactic Acid Calcium 8.2 L Phosphorus Magnesium Total Bilirubin AST ALT Alkaline Phosphatase Total Creatine Kinase > 38263 H Total Protein Albumin Urine Eosinophils U Random Total Protein Ur Random Sodium Ur Random Urea Urine Creatinine Protein/Creat Ratio 2 Hep B Core Total Ab Negative 07/15/25 07/15/25 07/15/25 11:19 11:30 11:30 WBC RBC Hgb Hct MCV MCH MCHC RDW Plt Count MPV Immature Gran % (Auto) Neut % (Auto) Lymph % (Auto) [place] % (Auto) Eos % (Auto) Baso % (Auto) Lymph # (Auto) [place] # (Auto) Eos # (Auto) Baso # (Auto) Abs Immat Gran (auto) Absolute Neuts (auto) Absolute Nucleated RBC Nucleated RBC % Sodium Potassium Chloride Carbon Dioxide Anion Gap BUN Creatinine Estim Creat Clear Calc Estimated GFR Glucose POC Capillary Glucose 269 H Lactic Acid Calcium Phosphorus Magnesium Total Bilirubin AST ALT Alkaline Phosphatase Total Creatine Kinase Total Protein Albumin Urine Eosinophils Rare U Random Total Protein 67 Ur Random Sodium 18 Ur Random Urea 83 Urine Creatinine 239.5 240.3 Protein/Creat Ratio 2 0.28 H Hep B Core Total Ab 07/15/25 07/15/25 07/16/25 17:04 20:13 03:44 WBC 18.0 H RBC 3.47 L Hgb 10.8 L D Hct 32.8 L MCV 94.5 MCH 31.1 MCHC 32.9 RDW 14.4 Plt Count 180 MPV 11.0 H Immature Gran % (Auto) 0.9 H Neut % (Auto) 82.3 H Lymph % (Auto) 6.2 L [place] % (Auto) 10.4 H Eos % (Auto) 0.1 Baso % (Auto) 0.1 L Lymph # (Auto) 1.12 [place] # (Auto) 1.9 H Eos # (Auto) 0.0 Baso # (Auto) 0.0 Abs Immat Gran (auto) 0.17 H Absolute Neuts (auto) 14.8 H Absolute Nucleated RBC 0.000 Nucleated RBC % 0.0 Sodium 126 L 125 L Potassium 5.6 H 5.3 H Chloride 94 L 96 L Carbon Dioxide 23 23 Anion Gap 9 6 BUN 76 H 71 H Creatinine 3.08 H 3.24 H Estim Creat Clear Calc 36 34 Estimated GFR 20 L 19 L Glucose 208 H 181 H POC Capillary Glucose 219 H Lactic Acid 1.1 Calcium 7.8 L 7.5 L Phosphorus 7.8 H Magnesium 2.1 Total Bilirubin 0.8 AST 1290 H ALT 395 H Alkaline Phosphatase 59 Total Creatine Kinase > 00877 H Total Protein 5.2 L Albumin 2.7 L Urine Eosinophils U Random Total Protein Ur Random Sodium Ur Random Urea Urine Creatinine Protein/Creat Ratio 2 Hep B Core Total Ab 07/16/25 06:43 WBC RBC Hgb Hct MCV MCH MCHC RDW Plt Count MPV Immature Gran % (Auto) Neut % (Auto) Lymph % (Auto) [place] % (Auto) Eos % (Auto) Baso % (Auto) Lymph # (Auto) [place] # (Auto) Eos # (Auto) Baso # (Auto) Abs Immat Gran (auto) Absolute Neuts (auto) Absolute Nucleated RBC Nucleated RBC % Sodium Potassium Chloride Carbon Dioxide Anion Gap BUN Creatinine Estim Creat Clear Calc Estimated GFR Glucose POC Capillary Glucose 184 H Lactic Acid Calcium Phosphorus Magnesium Total Bilirubin AST ALT Alkaline Phosphatase Total Creatine Kinase Total Protein Albumin Urine Eosinophils U Random Total Protein Ur Random Sodium Ur Random Urea Urine Creatinine Protein/Creat Ratio 2 Hep B Core Total Ab
--- NOTE | 2025-07-16 11:39 | PCPTNOTE ---
Attempted to see patient, but patient was off the floor getting HD. Physical therapy will check on patient tomorrow as time allows.
[2025-07-16] MEDS: EPOETIN ALFA-EPBX 10,000 UNITS/ML VIAL 10000 UNITS IV PUSH (13:39)
[2025-07-16] MEDS: cefTRIAXone 1 GM in SODIUM CHLORIDE 0.9% IV 50 ML 100 ML IVPB (14:06)
[2025-07-16] MEDS: VANCOMYCIN 1,250 MG/NS 250 ML 1,250 MG/250 ML BAG 166.67 MG IVPB (17:57)
[2025-07-16] MEDS: ACETAMINOPHEN 500 MG TABLET 1000 MG PO (17:57)
[2025-07-16 18:04] LABS: Anion Gap 7 mmol/L (4-12); Blood Urea Nitrogen 55 mg/dL (9-20); Calcium 7.8 mg/dL (8.4-10.2); Carbon Dioxide 25 mmol/L (22-30); Chloride 95 mmol/L (98-107); Estimated CRCL calculation 34 ml/min; Estimated Glomerular Filt Rate 21; Glucose 204 mg/dL (65-110); Potassium 4.9 mmol/L (3.4-5.0); Sodium 127 mmol/L (137-145)
[2025-07-16] MEDS: RIVAROXABAN 20 MG TABLET PO (19:24)
[2025-07-16] MEDS: INSULIN ASPART (*BKC) 100 UNITS/ML SUB-Q (20:57)
[2025-07-17] VITALS (17 sets, daily range): BP systolic 101–114; BP diastolic 47–60; PULSE 61–86; RESP 20–24; TEMP 36.3–36.8; O2SAT 91–97
[2025-07-17 02:24] LABS: Hematocrit 30.5 % (42.0-52.0); Hemoglobin 9.9 g/dL (14.0-18.0); Immature Granulocyte Percent A 1.1 % (0-0.5); Lymphocytes Absolute Auto 1.13 K/mm3 (0.9-3.2); Mean Corpuscular HGB Conc 32.5 g/dl (32-36); Mean Corpuscular Hemoglobin 31.4 pg (26-34); Mean Corpuscular Volume 96.8 fl (80-100); Nucleated Red Blood Cells Absolute Auto 0.000 K/mm3 (0.0-0.012); Nucleated Red Blood Cells Perc 0.0 % (0.0-0.2); Platelet Count Result 154 k/mm3 (150-375); Red Blood Count 3.15 M/mm3 (4.6-6.20); White Blood Count 16.6 K/mm3 (4.5-10.0)
[2025-07-17 02:46] LABS: Alanine Aminotransferase 378 U/L (6-50); Albumin Level 2.5 g/dL (3.5-5.1); Alkaline Phosphatase 74 U/L (38-126); Anion Gap 5 mmol/L (4-12); Bilirubin,Total 0.7 mg/dL (0.2-1.3); Blood Urea Nitrogen 67 mg/dL (9-20); Calcium 7.2 mg/dL (8.4-10.2); Carbon Dioxide 26 mmol/L (22-30); Chloride 95 mmol/L (98-107); Glucose 160 mg/dL (65-110); Magnesium 2.2 mg/dL (1.6-2.3); Potassium 5.1 mmol/L (3.4-5.0); Sodium 126 mmol/L (137-145); Total Protein 5.1 g/dL (6.3-8.2)
[2025-07-17 02:59] LABS: Estimated CRCL calculation 32 ml/min; Estimated Glomerular Filt Rate 17
[2025-07-17 03:00] LABS: Aspartate Amino Transferase 1127 U/L (17-59)
[2025-07-17 03:11] LABS: Creatine Kinase > 16000 U/L (55-170)
[2025-07-17] MEDS: AMIODARONE HCL 200 MG TABLET PO (09:30)
[2025-07-17] MEDS: cefTRIAXone 1 GM in SODIUM CHLORIDE 0.9% IV 50 ML 100 ML IVPB (09:31)
[2025-07-17] MEDS: ACETAMINOPHEN 500 MG TABLET 1000 MG PO ×2 (09:45→20:32)
--- NOTE | 2025-07-17 10:11 | PM.IMPN ---
Progress Note: A&P Assessment and Plan (1) Rhabdomyolysis: Qualifiers: Rhabdomyolysis type: non-traumatic Qualified Code(s): M62.82 - Rhabdomyolysis Code(s): M62.82 - Rhabdomyolysis Status: Acute Assessment and Plan: due to prolonged time down s/p 3L IV fluids in the ER s/p IV fluids CK > 16k on admission and this AM patient now receiving hemodialysis Nephrology following trend CK levels still elevated- monitor -dialysis tomorrow (2) Acute kidney injury: Code(s): N17.9 - Acute kidney failure, unspecified Status: Acute Assessment and Plan: due to acute rhabdomyolysis BUN 76 and Cr 3.08 on AM labs Nephrology following s/p temporary line placement by surgery team on hemodialysis, 2nd session planned for today daily labs (3) Acute hyperkalemia: Code(s): E87.5 - Hyperkalemia Status: Acute Assessment and Plan: K 6.6 on arrival, Patient received sodium bicarb, calcium, Lokelma, insulin and dextrose in the ER and again overnight in the IMU Telemetry despite medical management patient's potassium level was not improving Nephrology was consulted and now following patient had temporary HD line placed and was started on hemodialysis on 07/15 K this AM was 5.3 BMP in am 07/17 5.1 today (4) Sepsis: Qualifiers: Acute renal failure type: unspecified Sepsis acute organ dysfunction status: with acute organ dysfunction Sepsis type: sepsis due to unspecified organism Severe sepsis acute organ dysfunction type: acute renal failure Severe sepsis shock status: without septic shock Qualified Code(s): A41.9 - Sepsis, unspecified organism; R65.20 - Severe sepsis without septic shock; N17.9 - Acute kidney failure, unspecified Code(s): A41.9 - Sepsis, unspecified organism Status: Acute Assessment and Plan: Patient meets sepsis criteria with tachycardia, tachypnea and leukocytosis. Exact source of infection is not known. Leukocytosis could be due to leukemoid reaction verses acute infection. He urine does not appear to be acutely infected. He does have open wounds but they do not have any obvious surrounding erythema to suggest acute infection. Symptoms could simply be due to combination of volume depletion and respiratory alkalosis. Patient recieved cefepime and vancomycin while in the ED change to IV rocephin for possible UTI f/u blood cultures patients scrotal wound reassed and there is significant surrounding erythema, will add IV vancomycin for broader coverage AM labs (5) Type 2 diabetes mellitus with hyperglycemia, without long-term current use of insulin: Code(s): E11.65 - Type 2 diabetes mellitus with hyperglycemia Status: Acute Assessment and Plan: accu checks avoid hypoglycemia SSI while inpatient (6) Lactic acidosis: Code(s): E87.20 - Acidosis, unspecified Status: Acute Assessment and Plan: most likely due to rhabdomyolysis or possible sepsis Improving repeat level WNL improved-resolved (7) Chronic anticoagulation: Code(s): 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 Status: Acute Assessment and Plan: continue home Xarelto (8) Transaminitis: Code(s): R74.01 - Elevation of levels of liver transaminase levels Status: Acute Assessment and Plan: most likely due to rhabdomyolysis or possible sepsis hold home statin AM labs (9) Leukocytosis: Qualifiers: Leukocytosis type: unspecified Qualified Code(s): D72.829 - Elevated white blood cell count, unspecified Code(s): D72.829 - Elevated white blood cell count, unspecified Status: Acute Assessment and Plan: s/p IV vancomycin and cefepime f/u urine cultures f/u blood cultures continue IV rocephin, add IV vancomycin AM labs (10) Chronic hyponatremia: Code(s): E87.1 - Hypo-osmolality and hyponatremia Status: Acute Assessment and Plan: s/p IV fluids nephrology following dialysis monitor labs (11) Hematoma of right upper extremity: Code(s): S40.021A - Contusion of right upper arm, initial encounter Status: Acute Assessment and Plan: Monitor neuro checks pain control (12) Decubital ulcer: Qualifiers: Pressure injury location: unspecified location Pressure injury stage: unstageable Qualified Code(s): L89.95 - Pressure ulcer of unspecified site, unstageable Code(s): L89.90 - Pressure ulcer of unspecified site, unspecified stage Status: Acute Assessment and Plan: wound care consult (13) Nonischemic cardiomyopathy: Code(s): I42.8 - Other cardiomyopathies Status: Acute Assessment and Plan: hold home diuretics and ACEI due to KAITLIN and hyperkalemia monitor fluid volume status closely (14) Obstructive sleep apnea: Code(s): G47.33 - Obstructive sleep apnea (adult) (pediatric) Status: Acute Assessment and Plan: Patient may need CPAP therapy or supplemental oxygen but is currently maintaining O2 sats at this time. Will he would benefit from polysomnogram as outpatient to further delineate/treat his underlying obstructive sleep apnea. (15) Cellulitis of scrotum: Code(s): N49.2 - Inflammatory disorders of scrotum Status: Acute Plan patient with wound to left side of scrotum with significant surrounding erythema wound care was consulted continue IV rocephin add IV vancomycin daily labs several looose stools- C diff is ordered OK to use FMS if needed Time Spent With Patient Time with patient: Greater than 35 minutes Subjective Date/time seen: 07/17/25 10:11 Interval history: 69 year old male with PMH of morbid obesity with BMI greater than 50, diastolic heart failure, paroxysmal atrial fibrillation, type 2 diabetes mellitus and obstructive sleep apnea who presented to the ER from home via EMS after being found on the ground. He was admitted with acute rhabdomyolysis. hyperkalemia, KAITLIN, possible sepsis due to unknown source, leukocytosis, lactic acidosis and metabolic acidosis. Patient seen and examined for follow up. Patient seen lying in bed, in no acute distress. Patient had a temporary dialysis catheter placed by surgery yesterday and received hemodialysis per nephrology. Patient's potassium improved to 5.3 this AM. Patient's CK level is still > 16k. Patient's white blood cell count still elevated at 18k. Patients wounds reassessed and patient appears to have surrounding cellulitis to the wound on his scrotum. IV Vancomycin added to IV rocephin for broader coverage. Patient with pitting edema present to his upper extremities, discussed with nurse to elevate bilateral arms. Patient reports no bowel movement since admission, bowel regimen ordered. PT/OT ordered to eval and treat. Nephrology following patient. Pt is seen and examined. he is calm and denies any acute issues today. NO sob dialysis is schedule for tomorrow Review of Systems Review of Systems: 12 systems were reviewed with pertinent positives and negatives per HPI. Except as documented in the HPI, all other systems were reviewed and are negative. Exam Narrative: Weight 188.6 kg BMI 53.4 Const: Other: Morbidly obese, acutely ill-appearing, disheveled HENMT: Other: Mucous membranes are dry, crowded posterior oropharynx, no oral pharyngeal erythema, head is normocephalic atraumatic Eyes: Other: Pupils are equal and reactive, no scleral icterus, no conjunctival pallor Neck: Other: Large neck circumference, no lymphadenopathy, trachea midline Resp: Other: clear to auscultation bilaterally, no increased work of breathing Cardio: Other: RRR, 2+ bilateral radial and pedal pulses, no murmur, no JVD GI: Other: Soft, nontender, obese, normoactive bowel sounds : Other: Uncircumcised male Correa catheter present, erythematous moist rash bilateral inguinal folds and pannus folds, significant erythema to bilateral scrotum will with ulceration to the right scrotum with eschar (please see nursing documentation for photos in measurements) Urinary Catheter: Urinary Catheter: patent and draining Skin: Other: Candidiasis noted to pannus folds and bilateral inguinal folds, right buttock erythema that is blanchable and extend extending down into the posterior upper thigh with associated skin shearing, and as a ulcer of the left elbow with overlying eschar unable to stage, right scrotal wound Neuro: Other: Alert oriented to person place and time, speech is clear, no facial asymmetry, no localizing neurologic deficits noted the generalized weakness of the extremities, sensation is intact, patient reports hallucinations Extrem: Other: No cyanosis, marked bruising to the right medial humerus down into the ventral forearm, 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 pitting edema present to bilateral upper extremities Psych: Other: Appropriate mood and affect, pleasant and cooperative, fair judgment and insight, visual hallucinations reported prior to arrival to the ER patient is not hallucinating currently Objective Data Vital Signs Vital Signs: Vital Signs - 24 hr 07/16/25 10:49 07/16/25 11:03 07/16/25 11:15 Temperature 97.7 F Pulse Rate 81 79 83 Respiratory Rate 18 Blood Pressure 120/66 148/65 H 112/53 L Pulse Oximetry 98 Oxygen Delivery 07/16/25 11:30 07/16/25 11:45 07/16/25 12:00 Temperature Pulse Rate 97 83 82 Respiratory Rate Blood Pressure 118/65 104/73 122/62 Pulse Oximetry Oxygen Delivery 07/16/25 12:00 07/16/25 12:15 07/16/25 12:30 Temperature Pulse Rate 80 80 82 Respiratory Rate Blood Pressure 103/61 136/52 L Pulse Oximetry Oxygen Delivery 07/16/25 12:45 07/16/25 13:00 07/16/25 13:15 Temperature Pulse Rate 85 81 83 Respiratory Rate Blood Pressure 109/67 116/56 L 132/65 Pulse Oximetry Oxygen Delivery 07/16/25 13:30 07/16/25 13:45 07/16/25 14:00 Temperature Pulse Rate 85 81 86 Respiratory Rate Blood Pressure 109/62 128/55 L 127/58 L Pulse Oximetry Oxygen Delivery 07/16/25 14:15 07/16/25 14:30 07/16/25 14:45 Temperature Pulse Rate 80 88 88 Respiratory Rate Blood Pressure 112/59 L 108/60 135/61 Pulse Oximetry Oxygen Delivery 07/16/25 14:52 07/16/25 14:57 07/16/25 16:00 Temperature 97.9 F 98.1 F Pulse Rate 86 87 91 Respiratory Rate 16 22 H Blood Pressure 116/54 L 122/61 115/68 Pulse Oximetry 93 94 Oxygen Delivery 07/16/25 16:00 07/16/25 16:00 07/16/25 18:00 Temperature Pulse Rate 93 83 Respiratory Rate Blood Pressure Pulse Oximetry Oxygen Delivery Room Air 07/16/25 19:24 07/16/25 19:54 07/16/25 20:00 Temperature 97.5 F L Pulse Rate 86 84 Respiratory Rate 23 H Blood Pressure 119/54 L Pulse Oximetry 92 Oxygen Delivery Room Air 07/16/25 20:00 07/16/25 22:00 07/16/25 23:54 Temperature 97.8 F Pulse Rate 85 78 81 Respiratory Rate 23 H Blood Pressure 107/48 L Pulse Oximetry 90 Oxygen Delivery 07/17/25 00:00 07/17/25 00:00 07/17/25 02:00 Temperature Pulse Rate 78 80 Respiratory Rate Blood Pressure Pulse Oximetry Oxygen Delivery Room Air 07/17/25 04:00 07/17/25 04:00 07/17/25 04:00 Temperature 98.3 F Pulse Rate 81 79 Respiratory Rate Blood Pressure 107/47 L Pulse Oximetry 91 Oxygen Delivery Room Air 07/17/25 05:57 07/17/25 08:00 07/17/25 08:00 Temperature 97.5 F L Pulse Rate 86 81 84 Respiratory Rate 24 H Blood Pressure 101/51 L Pulse Oximetry 92 Oxygen Delivery 07/17/25 09:30 07/17/25 09:30 Temperature Pulse Rate 77 77 Respiratory Rate Blood Pressure Pulse Oximetry Oxygen Delivery Intake/Output Intake/Output: Intake & Output 07/14/25 07/15/25 07/16/25 07/17/25 23:59 23:59 23:59 23:59 Intake Total 3050 1630 2570 440 Output Total 900 2201 75 Balance 3050 730 369 365 Meds/Results Medications: Active Medications Generic Name Dose Route Start Last Admin Trade Name Freq PRN Reason Stop Dose Admin Acetaminophen 1,000 mg 07/16/25 09:58 07/17/25 09:45 Acetaminophen 500 Mg Tablet PO 1,000 mg Q6H PRN Administration Mild Pain (1-3) or Fever Amiodarone HCl 200 mg 07/15/25 02:30 07/17/25 09:30 Amiodarone Hcl 200 Mg Tablet PO 200 mg DAILY SALMA Administration Carvedilol 12.5 mg 07/15/25 09:00 07/17/25 09:30 Carvedilol 12.5 Mg Tablet PO 12.5 mg BID SALMA Administration Dextrose 12.5 gm 07/15/25 01:20 Dextrose 50% 25 Gm/50 Ml Syringe IV PUSH PRN PRN Hypoglycemia Protocol Glucagon 1 mg 07/15/25 01:20 Glucagon For Inj 1 Mg Vial IM PRN PRN Hypoglycemia Protocol Glucose 15 gm 07/15/25 01:20 Glucose Oral Gel 15 Gm Of Glucse In 37.5 Gm Tube PO PRN PRN Hypoglycemia Protocol Dextrose 1,000 mls @ 100 mls/hr 07/15/25 01:20 Dextrose 5% 1,000 Ml IVPB PRN PRN Hypoglycemia Protocol Ceftriaxone Sodium 1 gm/ 50 mls @ 100 mls/hr 07/15/25 11:45 07/17/25 09:31 Sodium Chloride IVPB 100 mls/hr DAILY SALMA Administration Albumin Human 50 mls @ 999 mls/hr 07/15/25 15:32 Albutein IVPB 08/14/25 15:31 Q10M PRN HYPOTENSION Insulin Aspart 3 - 6 units 07/15/25 08:00 07/17/25 08:50 Insulin Aspart (*Bkc) 100 Units/Ml SUB-Q Not Given TIDWM [facility] Protocol Insulin Aspart 1 - 3 units 07/15/25 21:00 07/16/25 20:57 Insulin Aspart (*Bkc) 100 Units/Ml SUB-Q 1 units HS SALMA Administration Protocol Magnesium Hydroxide 30 ml 07/16/25 08:39 Magnesium Hydroxide Susp 30 Ml Udc PO DAILY PRN Constipation Polyethylene Glycol 17 gm 07/16/25 09:00 07/17/25 09:31 Polyethylene Glycol 3350 17 Gm Powd.Pack PO 17 gm QAM SALMA Administration Rivaroxaban 20 mg 07/15/25 17:00 07/16/25 19:24 Rivaroxaban 20 Mg Tablet PO 20 mg DAILY@1700 SALMA Administration Sodium Zirconium Cyclosilicate 10 gm 07/15/25 10:00 07/15/25 17:26 Sodium Zirconium Cyclosilicate 10 Gm Powd.Pack PO Not Given On Hold: 07/15/25 15:36 TID@1000,1500,2200 [facility] Vancomycin HCl 1 each 07/16/25 10:24 Vancomycin For Hemodialysis IVPB PRN PRN Vancomycin Protocol Radiology Results: ITS Impressions Cervical Spine CT 07/15/25 07:00 IMPRESSION: 1. No acute abnormality of the cervical spine. 2: Severe cervical spondylosis. Head CT 07/15/25 07:03 IMPRESSION: 1. No acute intracranial abnormality. Shoulder X-Ray 07/15/25 07:39 Impression: 1: No acute fracture. Wrist X-Ray 07/15/25 07:40 Impression: 1: No acute fracture. Elbow X-Ray 07/15/25 07:41 Impression: 1: No acute fracture. Renal Ultrasound 07/15/25 13:09 Impression: 1: Unremarkable renal ultrasound. No stones, masses or hydronephrosis. Chest X-Ray 07/15/25 17:14 Impression: Mild CHF Central Venous Line 07/15/25 17:21 IMPRESSION: 1. Fluoroscopy utilized during reported port catheter insertion. See procedure note for further detail. Labs Labs: Laboratory Results - last 24 hr 07/16/25 07/16/25 07/16/25 15:24 15:29 17:42 WBC RBC Hgb Hct MCV MCH MCHC RDW Plt Count MPV Immature Gran % (Auto) Neut % (Auto) Lymph % (Auto) [place] % (Auto) Eos % (Auto) Baso % (Auto) Lymph # (Auto) [place] # (Auto) Eos # (Auto) Baso # (Auto) Abs Immat Gran (auto) Absolute Neuts (auto) Absolute Nucleated RBC Nucleated RBC % Sodium 127 L Potassium 4.9 Chloride 95 L Carbon Dioxide 25 Anion Gap 7 BUN 55 H D Creatinine 3.02 H Estim Creat Clear Calc 34 Estimated GFR 21 L Glucose 204 H POC Capillary Glucose 158 H Calcium 7.8 L Phosphorus Magnesium Total Bilirubin AST ALT Alkaline Phosphatase Total Creatine Kinase Total Protein Albumin Random Vancomycin 7.5 L 07/16/25 07/17/25 07/17/25 19:57 02:18 07:35 WBC 16.6 H RBC 3.15 L Hgb 9.9 L Hct 30.5 L MCV 96.8 MCH 31.4 MCHC 32.5 RDW 14.5 Plt Count 154 MPV 10.5 H Immature Gran % (Auto) 1.1 H Neut % (Auto) 80.0 H Lymph % (Auto) 6.8 L [place] % (Auto) 11.5 H Eos % (Auto) 0.5 Baso % (Auto) 0.1 L Lymph # (Auto) 1.13 [place] # (Auto) 1.9 H Eos # (Auto) 0.1 Baso # (Auto) 0.0 Abs Immat Gran (auto) 0.18 H Absolute Neuts (auto) 13.3 H Absolute Nucleated RBC 0.000 Nucleated RBC % 0.0 Sodium 126 L Potassium 5.1 H Chloride 95 L Carbon Dioxide 26 Anion Gap 5 BUN 67 H D Creatinine 3.58 H Estim Creat Clear Calc 32 Estimated GFR 17 L Glucose 160 H POC Capillary Glucose 217 H 173 H Calcium 7.2 L Phosphorus 7.4 H Magnesium 2.2 Total Bilirubin 0.7 AST 1127 H ALT 378 H Alkaline Phosphatase 74 Total Creatine Kinase > 07850 H Total Protein 5.1 L Albumin 2.5 L Random Vancomycin 14.9 Quality VTE Prophylaxis VTE prophylaxis: pharmacologic ordered (Continue home Xarelto)
--- NOTE | 2025-07-17 11:15 | P.PNNP_ITS ---
Progress Note: A&P Assessment and Plan (1) Acute kidney injury: Code(s): N17.9 - Acute kidney failure, unspecified Status: Acute Assessment and Plan: * as noted by admission labs - creatinine of 2.07mg/dL * progressively worsening as noted by trend of labs since hospitalization began * complicated by persistent hyperkalemia unresponsive to medical therapy and declining UOP * baseline creatinine normal: * 1.16mg/dL in October 2024 (by outpatient labs by PCP) * 1.30mg/dL in October 2022 ([facility]) * multifactorial etiology: * rhabdomyolysis * LAURY-I use prior to admission * diuretic use (lasix + spironolactone) prior to admission * prerenal factors(?) * infection/early sepsis(?) * other(?) * urine output is still very low. * IV fluids failed to improve CK, creatinine, or urine output. * he had dialysis yesterday. * His creatinine improved a little bit after the treatment and now is back up again. * Will do another dialysis tomorrow * catheter is malfunctioning a little bit. Will switch to a PermCath since it looks like his kidney function may be too low to get off dialysis very soon. We will ask surgery how long before the procedure to hold the Xarelto (2) Hyperkalemia: Code(s): E87.5 - Hyperkalemia Status: Acute Assessment and Plan: * recurrent since admission * poor response to medical management despite multiple rounds of therapy to date * Received dialysis yesterday to help potassium. * He has some still a bit high at 5.1 * will give another dose of Lokelma today (3) Rhabdomyolysis: Code(s): M62.82 - Rhabdomyolysis Status: Acute Assessment and Plan: * as noted by elevated CPK * likely related to prolonged downtime from fall * contributing to hyperkalemia and KAITLIN * AST and ALT are dropping but very slowly, indicating some improvement in the CK this CK itself is greater than 16,000 (4) Sepsis: Qualifiers: Acute renal failure type: unspecified Sepsis acute organ dysfunction status: with acute organ dysfunction Sepsis type: sepsis due to unspecified organism Severe sepsis acute organ dysfunction type: acute renal failure Severe sepsis shock status: without septic shock Qualified Code(s): A41.9 - Sepsis, unspecified organism; R65.20 - Severe sepsis without septic shock; N17.9 - Acute kidney failure, unspecified Code(s): A41.9 - Sepsis, unspecified organism Status: Acute Assessment and Plan: * suspected due to elevated WBC, lactic acidosis, tachycardia, tachypnea on admission * no clear source at this time * follow culture data * follow hemodynamics * on empiric antibiotics (5) Atrial fibrillation and flutter: Code(s): I48.91 - Unspecified atrial fibrillation; I48.92 - Unspecified atrial flutter Status: Chronic Assessment and Plan: * paroxysmal in nature * on amiodarone * on anticoagulation (6) Transaminitis: Code(s): R74.01 - Elevation of levels of liver transaminase levels Status: Acute Assessment and Plan: * presumably related to rhabdomyolysis * holding statin * follow trend of LFTs (7) Hypertension: Code(s): I10 - Essential (primary) hypertension Status: Chronic Assessment and Plan: * systolic is doing well between 100 and 122 * follow trend of hemodynamics (8) Diabetes: Code(s): E11.9 - Type 2 diabetes mellitus without complications Status: Chronic Assessment and Plan: * follow accu-cheks * glycemic control per hospitalist Subjective Date/time seen: 07/17/25 11:15 Interval history: the patient is feeling about the same. No chest pain or shortness of breath he tolerated his dialysis well yesterday. Apparently there was some issue with catheter flow. Exam Narrative: WDWN male in NAD skin no rash. Some chronic actinic changes on his forearm head ncat lungs clear bilaterally cor reg no rub abd BS+ nontender and soft ext trace bilateral edema. Objective Data Vital Signs Vital Signs: Vital Signs - 24 hr 07/16/25 11:30 07/16/25 11:45 07/16/25 12:00 Temperature Pulse Rate 97 83 82 Respiratory Rate Blood Pressure 118/65 104/73 122/62 Pulse Oximetry Oxygen Delivery 07/16/25 12:00 07/16/25 12:15 07/16/25 12:30 Temperature Pulse Rate 80 80 82 Respiratory Rate Blood Pressure 103/61 136/52 L Pulse Oximetry Oxygen Delivery 07/16/25 12:45 07/16/25 13:00 07/16/25 13:15 Temperature Pulse Rate 85 81 83 Respiratory Rate Blood Pressure 109/67 116/56 L 132/65 Pulse Oximetry Oxygen Delivery 07/16/25 13:30 07/16/25 13:45 07/16/25 14:00 Temperature Pulse Rate 85 81 86 Respiratory Rate Blood Pressure 109/62 128/55 L 127/58 L Pulse Oximetry Oxygen Delivery 07/16/25 14:15 07/16/25 14:30 07/16/25 14:45 Temperature Pulse Rate 80 88 88 Respiratory Rate Blood Pressure 112/59 L 108/60 135/61 Pulse Oximetry Oxygen Delivery 07/16/25 14:52 07/16/25 14:57 07/16/25 16:00 Temperature 97.9 F 98.1 F Pulse Rate 86 87 91 Respiratory Rate 16 22 H Blood Pressure 116/54 L 122/61 115/68 Pulse Oximetry 93 94 Oxygen Delivery 07/16/25 16:00 07/16/25 16:00 07/16/25 18:00 Temperature Pulse Rate 93 83 Respiratory Rate Blood Pressure Pulse Oximetry Oxygen Delivery Room Air 07/16/25 19:24 07/16/25 19:54 07/16/25 20:00 Temperature 97.5 F L Pulse Rate 86 84 Respiratory Rate 23 H Blood Pressure 119/54 L Pulse Oximetry 92 Oxygen Delivery Room Air 07/16/25 20:00 07/16/25 22:00 07/16/25 23:54 Temperature 97.8 F Pulse Rate 85 78 81 Respiratory Rate 23 H Blood Pressure 107/48 L Pulse Oximetry 90 Oxygen Delivery 07/17/25 00:00 07/17/25 00:00 07/17/25 02:00 Temperature Pulse Rate 78 80 Respiratory Rate Blood Pressure Pulse Oximetry Oxygen Delivery Room Air 07/17/25 04:00 07/17/25 04:00 07/17/25 04:00 Temperature 98.3 F Pulse Rate 81 79 Respiratory Rate Blood Pressure 107/47 L Pulse Oximetry 91 Oxygen Delivery Room Air 07/17/25 05:57 07/17/25 08:00 07/17/25 08:00 Temperature 97.5 F L Pulse Rate 86 81 84 Respiratory Rate 24 H Blood Pressure 101/51 L Pulse Oximetry 92 Oxygen Delivery 07/17/25 09:30 07/17/25 09:30 07/17/25 10:00 Temperature Pulse Rate 77 77 78 Respiratory Rate Blood Pressure Pulse Oximetry Oxygen Delivery Intake/Output Intake/Output: Intake & Output 07/14/25 07/15/25 07/16/25 07/17/25 23:59 23:59 23:59 23:59 Intake Total 3050 1630 2570 440 Output Total 900 2201 75 Balance 3050 730 369 365 Meds/Results Medications: Active Medications Generic Name Dose Route Start Last Admin Trade Name Freq PRN Reason Stop Dose Admin Acetaminophen 1,000 mg 07/16/25 09:58 07/17/25 09:45 Acetaminophen 500 Mg Tablet PO 1,000 mg Q6H PRN Administration Mild Pain (1-3) or Fever Amiodarone HCl 200 mg 07/15/25 02:30 07/17/25 09:30 Amiodarone Hcl 200 Mg Tablet PO 200 mg DAILY SALMA Administration Carvedilol 12.5 mg 07/15/25 09:00 07/17/25 09:30 Carvedilol 12.5 Mg Tablet PO 12.5 mg BID SALMA Administration Dextrose 12.5 gm 07/15/25 01:20 Dextrose 50% 25 Gm/50 Ml Syringe IV PUSH PRN PRN Hypoglycemia Protocol Glucagon 1 mg 07/15/25 01:20 Glucagon For Inj 1 Mg Vial IM PRN PRN Hypoglycemia Protocol Glucose 15 gm 07/15/25 01:20 Glucose Oral Gel 15 Gm Of Glucse In 37.5 Gm Tube PO PRN PRN Hypoglycemia Protocol Dextrose 1,000 mls @ 100 mls/hr 07/15/25 01:20 Dextrose 5% 1,000 Ml IVPB PRN PRN Hypoglycemia Protocol Ceftriaxone Sodium 1 gm/ 50 mls @ 100 mls/hr 07/15/25 11:45 07/17/25 09:31 Sodium Chloride IVPB 100 mls/hr DAILY SALMA Administration Albumin Human 50 mls @ 999 mls/hr 07/15/25 15:32 Albutein IVPB 08/14/25 15:31 Q10M PRN HYPOTENSION Insulin Aspart 3 - 6 units 07/15/25 08:00 07/17/25 08:50 Insulin Aspart (*Bkc) 100 Units/Ml SUB-Q Not Given TIDWM [facility] Protocol Insulin Aspart 1 - 3 units 07/15/25 21:00 07/16/25 20:57 Insulin Aspart (*Bkc) 100 Units/Ml SUB-Q 1 units HS SALMA Administration Protocol Magnesium Hydroxide 30 ml 07/16/25 08:39 Magnesium Hydroxide Susp 30 Ml Udc PO DAILY PRN Constipation Polyethylene Glycol 17 gm 07/16/25 09:00 07/17/25 09:31 Polyethylene Glycol 3350 17 Gm Powd.Pack PO 17 gm QAM SALMA Administration Rivaroxaban 20 mg 07/15/25 17:00 07/16/25 19:24 Rivaroxaban 20 Mg Tablet PO 20 mg DAILY@1700 [facility] Administration Sodium Zirconium Cyclosilicate 10 gm 07/15/25 10:00 07/15/25 17:26 Sodium Zirconium Cyclosilicate 10 Gm Powd.Pack PO Not Given On Hold: 07/15/25 15:36 TID@1000,1500,2200 [facility] Vancomycin HCl 1 each 07/16/25 10:24 Vancomycin For Hemodialysis IVPB PRN PRN Vancomycin Protocol Radiology Results: ITS Impressions Cervical Spine CT 07/15/25 07:00 IMPRESSION: 1. No acute abnormality of the cervical spine. 2: Severe cervical spondylosis. Head CT 07/15/25 07:03 IMPRESSION: 1. No acute intracranial abnormality. Shoulder X-Ray 07/15/25 07:39 Impression: 1: No acute fracture. Wrist X-Ray 07/15/25 07:40 Impression: 1: No acute fracture. Elbow X-Ray 07/15/25 07:41 Impression: 1: No acute fracture. Renal Ultrasound 07/15/25 13:09 Impression: 1: Unremarkable renal ultrasound. No stones, masses or hydronephrosis. Chest X-Ray 07/15/25 17:14 Impression: Mild CHF Central Venous Line 07/15/25 17:21 IMPRESSION: 1. Fluoroscopy utilized during reported port catheter insertion. See procedure note for further detail. Labs Labs: Laboratory Results - last 24 hr 07/16/25 07/16/25 07/16/25 15:24 15: 17:42 WBC RBC Hgb Hct MCV MCH MCHC RDW Plt Count MPV Immature Gran % (Auto) Neut % (Auto) Lymph % (Auto) [place] % (Auto) Eos % (Auto) Baso % (Auto) Lymph # (Auto) [place] # (Auto) Eos # (Auto) Baso # (Auto) Abs Immat Gran (auto) Absolute Neuts (auto) Absolute Nucleated RBC Nucleated RBC % Sodium 127 L Potassium 4.9 Chloride 95 L Carbon Dioxide 25 Anion Gap 7 BUN 55 H D Creatinine 3.02 H Estim Creat Clear Calc 34 Estimated GFR 21 L Glucose 204 H POC Capillary Glucose 158 H Calcium 7.8 L Phosphorus Magnesium Total Bilirubin AST ALT Alkaline Phosphatase Total Creatine Kinase Total Protein Albumin Random Vancomycin 7.5 L 07/16/25 07/17/25 07/17/25 19:57 02:18 07:35 WBC 16.6 H RBC 3.15 L Hgb 9.9 L Hct 30.5 L MCV 96.8 MCH 31.4 MCHC 32.5 RDW 14.5 Plt Count 154 MPV 10.5 H Immature Gran % (Auto) 1.1 H Neut % (Auto) 80.0 H Lymph % (Auto) 6.8 L [place] % (Auto) 11.5 H Eos % (Auto) 0.5 Baso % (Auto) 0.1 L Lymph # (Auto) 1.13 [place] # (Auto) 1.9 H Eos # (Auto) 0.1 Baso # (Auto) 0.0 Abs Immat Gran (auto) 0.18 H Absolute Neuts (auto) 13.3 H Absolute Nucleated RBC 0.000 Nucleated RBC % 0.0 Sodium 126 L Potassium 5.1 H Chloride 95 L Carbon Dioxide 26 Anion Gap 5 BUN 67 H D Creatinine 3.58 H Estim Creat Clear Calc 32 Estimated GFR 17 L Glucose 160 H POC Capillary Glucose 217 H 173 H Calcium 7.2 L Phosphorus 7.4 H Magnesium 2.2 Total Bilirubin 0.7 AST 1127 H ALT 378 H Alkaline Phosphatase 74 Total Creatine Kinase > 21069 H Total Protein 5.1 L Albumin 2.5 L Random Vancomycin 14.9
--- NOTE | 2025-07-17 11:33 | PCPTNOTE ---
Patient is getting cleaned up by nursing and then they are going to do dressing changes. Nursing asks physical therapy to see someone else. Physical therapy will attempt to see patient tomorrow as time allows.
[2025-07-17] MEDS: SODIUM ZIRCONIUM CYCLOSILICATE 10 GM POWD.PACK PO (12:15)
[2025-07-17] MEDS: RIVAROXABAN 20 MG TABLET PO (16:55)
[2025-07-17] MEDS: INSULIN ASPART (*BKC) 100 UNITS/ML SUB-Q (20:27)
[2025-07-17] MEDS: IPRATROPIUM 0.5 MG/ALBUTEROL SULFATE 2.5 MG AMPUL.NEB 3 ML INHALATION (21:05)
[2025-07-18] VITALS (41 sets, daily range): BP systolic 103–155; BP diastolic 44–81; PULSE 1–87; RESP 20–24; TEMP 36–37.2; O2SAT 92–97
[2025-07-18 05:20] LABS: Hematocrit 30.3 % (42.0-52.0); Hemoglobin 9.7 g/dL (14.0-18.0); Immature Granulocyte Percent A 1.5 % (0-0.5); Lymphocytes Absolute Auto 1.01 K/mm3 (0.9-3.2); Mean Corpuscular HGB Conc 32.0 g/dl (32-36); Mean Corpuscular Hemoglobin 31.5 pg (26-34); Mean Corpuscular Volume 98.4 fl (80-100); Nucleated Red Blood Cells Absolute Auto 0.000 K/mm3 (0.0-0.012); Nucleated Red Blood Cells Perc 0.0 % (0.0-0.2); Platelet Count Result 162 k/mm3 (150-375); Red Blood Count 3.08 M/mm3 (4.6-6.20); White Blood Count 16.9 K/mm3 (4.5-10.0)
[2025-07-18 06:01] LABS: Alanine Aminotransferase 337 U/L (6-50); Albumin Level 2.6 g/dL (3.5-5.1); Alkaline Phosphatase 73 U/L (38-126); Anion Gap 8 mmol/L (4-12); Bilirubin,Total 0.7 mg/dL (0.2-1.3); Blood Urea Nitrogen 94 mg/dL (9-20); Calcium 6.7 mg/dL (8.4-10.2); Carbon Dioxide 23 mmol/L (22-30); Chloride 94 mmol/L (98-107); Glucose 118 mg/dL (65-110); Magnesium 2.2 mg/dL (1.6-2.3); Potassium 5.1 mmol/L (3.4-5.0); Sodium 125 mmol/L (137-145); Total Protein 5.2 g/dL (6.3-8.2)
[2025-07-18 06:10] LABS: Estimated CRCL calculation 23 ml/min; Estimated Glomerular Filt Rate 11
[2025-07-18 06:15] LABS: Aspartate Amino Transferase 803 U/L (17-59)
[2025-07-18 07:03] LABS: Creatine Kinase > 16000 U/L (55-170)
--- NOTE | 2025-07-18 08:38 | PC.NURSE ---
0800-to dialysis for treatment via bed accompanied by staff
--- NOTE | 2025-07-18 09:12 | PCPTNOTE ---
attempted PT evaluation, unable to perform, pt was out of room, at dialysis.
--- NOTE | 2025-07-18 09:51 | P.PNIM_ITS ---
Progress Note: A&P Assessment and Plan (1) Rhabdomyolysis: Qualifiers: Rhabdomyolysis type: non-traumatic Qualified Code(s): M62.82 - Rhabdomyolysis Code(s): M62.82 - Rhabdomyolysis Status: Acute Assessment and Plan: due to prolonged time down s/p 3L IV fluids in the ER s/p IV fluids CK > 16k on admission and this AM patient now receiving hemodialysis Nephrology following trend CK levels still elevated- monitor -dialysis tomorrow ck >[id number] (2) Acute kidney injury: Code(s): N17.9 - Acute kidney failure, unspecified Status: Acute Assessment and Plan: due to acute rhabdomyolysis BUN 76 and Cr 3.08 on AM labs Nephrology following s/p temporary line placement by surgery team on hemodialysis, 2nd session planned for today daily labs ct/bun 5. today (3) Acute hyperkalemia: Code(s): E87.5 - Hyperkalemia Status: Acute Assessment and Plan: K 6.6 on arrival, Patient received sodium bicarb, calcium, Lokelma, insulin and dextrose in the ER and again overnight in the IMU Telemetry despite medical management patient's potassium level was not improving Nephrology was consulted and now following patient had temporary HD line placed and was started on hemodialysis on 07/15 K this AM was 5.3 BMP in am 07/17 5.1 today 07/18 5.1 (4) Sepsis: Qualifiers: Acute renal failure type: unspecified Sepsis acute organ dysfunction status: with acute organ dysfunction Sepsis type: sepsis due to unspecified organism Severe sepsis acute organ dysfunction type: acute renal failure Severe sepsis shock status: without septic shock Qualified Code(s): A41.9 - Sepsis, unspecified organism; R65.20 - Severe sepsis without septic shock; N17.9 - Acute kidney failure, unspecified Code(s): A41.9 - Sepsis, unspecified organism Status: Acute Assessment and Plan: Patient meets sepsis criteria with tachycardia, tachypnea and leukocytosis. Exact source of infection is not known. Leukocytosis could be due to leukemoid reaction verses acute infection. He urine does not appear to be acutely infected. He does have open wounds but they do not have any obvious surrounding erythema to suggest acute infection. Symptoms could simply be due to combination of volume depletion and respiratory alkalosis. Patient recieved cefepime and vancomycin while in the ED change to IV rocephin for possible UTI f/u blood cultures patients scrotal wound reassed and there is significant surrounding erythema, will add IV vancomycin for broader coverage AM labs (5) Type 2 diabetes mellitus with hyperglycemia, without long-term current use of insulin: Code(s): E11.65 - Type 2 diabetes mellitus with hyperglycemia Status: Acute Assessment and Plan: accu checks avoid hypoglycemia SSI while inpatient (6) Lactic acidosis: Code(s): E87.20 - Acidosis, unspecified Status: Acute Assessment and Plan: most likely due to rhabdomyolysis or possible sepsis Improving repeat level WNL improved-resolved (7) Chronic anticoagulation: Code(s): Z79.01 - prison (current) use of anticoagulants Status: Acute Assessment and Plan: continue home Xarelto (8) Transaminitis: Code(s): R74.01 - Elevation of levels of liver transaminase levels Status: Acute Assessment and Plan: most likely due to rhabdomyolysis or possible sepsis hold home statin AM labs (9) Leukocytosis: Qualifiers: Leukocytosis type: unspecified Qualified Code(s): D72.829 - Elevated white blood cell count, unspecified Code(s): D72.829 - Elevated white blood cell count, unspecified Status: Acute Assessment and Plan: s/p IV vancomycin and cefepime f/u urine cultures f/u blood cultures continue IV rocephin, add IV vancomycin AM labs (10) Chronic hyponatremia: Code(s): E87.1 - Hypo-osmolality and hyponatremia Status: Acute Assessment and Plan: s/p IV fluids nephrology following dialysis monitor labs (11) Hematoma of right upper extremity: Code(s): S40.021A - Contusion of right upper arm, initial encounter Status: Acute Assessment and Plan: Monitor neuro checks pain control (12) Decubital ulcer: Qualifiers: Pressure injury location: unspecified location Pressure injury stage: unstageable Qualified Code(s): L89.95 - Pressure ulcer of unspecified site, unstageable Code(s): L89.90 - Pressure ulcer of unspecified site, unspecified stage Status: Acute Assessment and Plan: wound care consult (13) Nonischemic cardiomyopathy: Code(s): I42.8 - Other cardiomyopathies Status: Acute Assessment and Plan: hold home diuretics and ACEI due to KAITLIN and hyperkalemia monitor fluid volume status closely (14) Obstructive sleep apnea: Code(s): G47.33 - Obstructive sleep apnea (adult) (pediatric) Status: Acute Assessment and Plan: Patient may need CPAP therapy or supplemental oxygen but is currently maintaining O2 sats at this time. Will he would benefit from polysomnogram as outpatient to further delineate/treat his underlying obstructive sleep apnea. (15) Cellulitis of scrotum: Code(s): N49.2 - Inflammatory disorders of scrotum Status: Acute Assessment and Plan: continue with wound care recommendations: - conitnue antifungal powder - simmons keep area clean and dry Plan patient with wound to left side of scrotum with significant surrounding erythema wound care was consulted continue IV rocephin add IV vancomycin daily labs several looose stools- C diff is ordered OK to use FMS if needed Time Spent With Patient Time with patient: 25 - 35 minutes Subjective Date/time seen: 07/18/25 09:51 Interval history: 69 year old male with PMH of morbid obesity with BMI greater than 50, diastolic heart failure, paroxysmal atrial fibrillation, type 2 diabetes mellitus and obstructive sleep apnea who presented to the ER from home via EMS after being found on the ground. He was admitted with acute rhabdomyolysis. hyperkalemia, KAITLIN, possible sepsis due to unknown source, leukocytosis, lactic acidosis and metabolic acidosis. Patient seen and examined for follow up. Patient seen lying in bed, in no acute distress. Patient had a temporary dialysis catheter placed by surgery yesterday and received hemodialysis per nephrology. Patient's potassium improved to 5.3 this AM. Patient's CK level is still > 16k. Patient's white blood cell count still elevated at 18k. Patients wounds reassessed and patient appears to have surrounding cellulitis to the wound on his scrotum. IV Vancomycin added to IV rocephin for broader coverage. Patient with pitting edema present to his upper extremities, discussed with nurse to elevate bilateral arms. Patient reports no bowel movement since admission, bowel regimen ordered. PT/OT ordered to eval and treat. Nephrology following patient. Pt is seen this morning during morning rounds. Dialysis today, no acute events. Review of Systems Review of Systems: 12 systems were reviewed with pertinent positives and negatives per HPI. Except as documented in the HPI, all other systems were reviewed and are negative. Exam Narrative: Weight 188.6 kg BMI 53.4 Const: Other: Morbidly obese, acutely ill-appearing, disheveled HENMT: Other: Mucous membranes are dry, crowded posterior oropharynx, no oral pharyngeal erythema, head is normocephalic atraumatic Eyes: Other: Pupils are equal and reactive, no scleral icterus, no conjunctival pallor Neck: Other: Large neck circumference, no lymphadenopathy, trachea midline Resp: Other: clear to auscultation bilaterally, no increased work of breathing Cardio: Other: RRR, 2+ bilateral radial and pedal pulses, no murmur, no JVD GI: Other: Soft, nontender, obese, normoactive bowel sounds : Other: Uncircumcised male Simmons catheter present, erythematous moist rash bilateral inguinal folds and pannus folds, significant erythema to bilateral scrotum will with ulceration to the right scrotum with eschar (please see nursing documentation for photos in measurements) Urinary Catheter: Urinary Catheter: patent and draining Skin: Other: Candidiasis noted to pannus folds and bilateral inguinal folds, right buttock erythema that is blanchable and extend extending down into the posterior upper thigh with associated skin shearing, and as a ulcer of the left elbow with overlying eschar unable to stage, right scrotal wound Neuro: Other: Alert oriented to person place and time, speech is clear, no facial asymmetry, no localizing neurologic deficits noted the generalized weakness of the extremities, sensation is intact, patient reports hallucinations Extrem: Other: No cyanosis, marked bruising to the right medial humerus down into the ventral forearm, 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 pitting edema present to bilateral upper extremities Psych: Other: Appropriate mood and affect, pleasant and cooperative, fair judgment and insight, visual hallucinations reported prior to arrival to the ER patient is not hallucinating currently Objective Data Vital Signs Vital Signs: Vital Signs - 24 hr 07/17/25 10:00 07/17/25 12:00 07/17/25 12:00 Temperature 98.3 F Pulse Rate 78 72 76 Respiratory Rate 24 H Blood Pressure 102/60 Pulse Oximetry 97 Oxygen Delivery Oxygen Flow Rate Fraction of Inspired Oxygen 07/17/25 14:00 07/17/25 16:00 07/17/25 16:00 Temperature 98.3 F Pulse Rate 61 69 70 Respiratory Rate 20 Blood Pressure 114/58 L Pulse Oximetry 97 Oxygen Delivery Oxygen Flow Rate Fraction of Inspired Oxygen 07/17/25 16:55 07/17/25 18:00 07/17/25 20:00 Temperature 97.4 F L Pulse Rate 72 68 72 Respiratory Rate 22 H Blood Pressure 112/53 L Pulse Oximetry 95 Oxygen Delivery Oxygen Flow Rate Fraction of Inspired Oxygen 07/17/25 20:00 07/17/25 20:00 07/17/25 21:20 Temperature Pulse Rate 68 Respiratory Rate Blood Pressure Pulse Oximetry 91 91 Oxygen Delivery Nasal Cannula Room Air Oxygen Flow Rate 1 Fraction of Inspired Oxygen 21 07/17/25 21:22 07/17/25 21:54 07/17/25 23:39 Temperature Pulse Rate 67 Respiratory Rate Blood Pressure Pulse Oximetry 94 94 Oxygen Delivery Nasal Cannula Nasal Cannula Oxygen Flow Rate 1 1 Fraction of Inspired Oxygen 07/18/25 00:00 07/18/25 00:00 07/18/25 02:00 Temperature 97.6 F Pulse Rate 87 70 72 Respiratory Rate 20 Blood Pressure 103/55 L Pulse Oximetry 94 Oxygen Delivery Oxygen Flow Rate Fraction of Inspired Oxygen 07/18/25 03:56 07/18/25 04:00 07/18/25 04:00 Temperature 97.5 F L Pulse Rate 73 72 Respiratory Rate 20 Blood Pressure 124/57 L Pulse Oximetry 92 95 Oxygen Delivery Nasal Cannula Oxygen Flow Rate 1 Fraction of Inspired Oxygen 07/18/25 05:57 07/18/25 08:00 07/18/25 08:04 Temperature 97.8 F 97.9 F Pulse Rate 64 73 72 Respiratory Rate 24 H 20 Blood Pressure 116/56 L 110/56 L Pulse Oximetry 94 95 Oxygen Delivery Oxygen Flow Rate Fraction of Inspired Oxygen 07/18/25 08:16 07/18/25 08:16 07/18/25 08:30 Temperature Pulse Rate 73 75 Respiratory Rate Blood Pressure 143/67 H 126/65 Pulse Oximetry Oxygen Delivery Oxygen Flow Rate 1 Fraction of Inspired Oxygen 07/18/25 08:45 07/18/25 09:00 07/18/25 09:15 Temperature Pulse Rate 75 76 80 Respiratory Rate Blood Pressure 109/55 L 122/59 L 124/81 Pulse Oximetry Oxygen Delivery Oxygen Flow Rate Fraction of Inspired Oxygen 07/18/25 09:30 Temperature Pulse Rate 79 Respiratory Rate Blood Pressure 120/77 Pulse Oximetry Oxygen Delivery Oxygen Flow Rate Fraction of Inspired Oxygen Intake/Output Intake/Output: Intake & Output 07/15/25 07/16/25 07/17/25 07/18/25 23:59 23:59 23:59 23:59 Intake Total 1630 2570 920 600 Output Total 900 2201 120 150 Balance 730 369 800 450 Meds/Results Medications: Active Medications Generic Name Dose Route Start Last Admin Trade Name Freq PRN Reason Stop Dose Admin Acetaminophen 1,000 mg 07/16/25 09:58 07/17/25 20:32 Acetaminophen 500 Mg Tablet PO 1,000 mg Q6H PRN Administration Mild Pain (1-3) or Fever Albuterol/Ipratropium 3 ml 07/17/25 20:40 07/17/25 21:05 Ipratropium 0.5 Mg/Albuterol Sulfate 2.5 Mg Ampul.Neb 3 Ml INHALATION 3 ml Q6HRT PRN Administration wheezing Amiodarone HCl 200 mg 07/15/25 02:30 07/17/25 09:30 Amiodarone Hcl 200 Mg Tablet PO 200 mg DAILY SALMA Administration Carvedilol 12.5 mg 07/15/25 09:00 07/17/25 16:55 Carvedilol 12.5 Mg Tablet PO 12.5 mg BID SALMA Administration Dextrose 12.5 gm 07/15/25 01:20 Dextrose 50% 25 Gm/50 Ml Syringe IV PUSH PRN PRN Hypoglycemia Protocol Epoetin Sd-epbx 10,000 units 07/18/25 09:00 Epoetin Sd-Epbx 10,000 Units/Ml Vial IV PUSH MOWEFR@09 SALMA Glucagon 1 mg 07/15/25 01:20 Glucagon For Inj 1 Mg Vial IM PRN PRN Hypoglycemia Protocol Glucose 15 gm 07/15/25 01:20 Glucose Oral Gel 15 Gm Of Glucse In 37.5 Gm Tube PO PRN PRN Hypoglycemia Protocol Dextrose 1,000 mls @ 100 mls/hr 07/15/25 01:20 Dextrose 5% 1,000 Ml IVPB PRN PRN Hypoglycemia Protocol Ceftriaxone Sodium 1 gm/ 50 mls @ 100 mls/hr 07/15/25 11:45 07/17/25 09:31 Sodium Chloride IVPB 100 mls/hr DAILY SALMA Administration Albumin Human 50 mls @ 999 mls/hr 07/15/25 15:32 Albutein IVPB 08/14/25 15:31 Q10M PRN HYPOTENSION Albumin Human 50 mls @ 999 mls/hr 07/17/25 11:18 Albutein IVPB 07/18/25 11:17 Q10M PRN HYPOTENSION Vancomycin HCl 1,250 mg in 250 mls @ 166.667 mls/hr 07/18/25 18:00 Vancomycin 1,250 Mg/Ns 250 Ml IVPB 07/18/25 19:29 ONCE ONE Insulin Aspart 3 - 6 units 07/15/25 08:00 07/17/25 16:54 Insulin Aspart (*Bkc) 100 Units/Ml SUB-Q Not Given TID[facility] Protocol Insulin Aspart 1 - 3 units 07/15/25 21:00 07/17/25 20:27 Insulin Aspart (*Bkc) 100 Units/Ml SUB-Q 1 units HS SALMA Administration Protocol Magnesium Hydroxide 30 ml 07/16/25 08:39 Magnesium Hydroxide Susp 30 Ml Udc PO DAILY PRN Constipation Polyethylene Glycol 17 gm 07/16/25 09:00 07/17/25 09:31 Polyethylene Glycol 3350 17 Gm Powd.Pack PO 17 gm QAM SALMA Administration Rivaroxaban 20 mg 07/15/25 17:00 07/17/25 16:55 Rivaroxaban 20 Mg Tablet PO 20 mg DAILY@1700 SALMA Administration Sodium Zirconium Cyclosilicate 10 gm 07/15/25 10:00 07/15/25 17:26 Sodium Zirconium Cyclosilicate 10 Gm Powd.Pack PO Not Given On Hold: 07/15/25 15:36 TID@1000,1500,2200 SALMA Vancomycin HCl 1 each 07/16/25 10:24 Vancomycin For Hemodialysis IVPB PRN PRN Vancomycin Protocol Radiology Results: ITS Impressions Cervical Spine CT 07/15/25 07:00 IMPRESSION: 1. No acute abnormality of the cervical spine. 2: Severe cervical spondylosis. Head CT 07/15/25 07:03 IMPRESSION: 1. No acute intracranial abnormality. Shoulder X-Ray 07/15/25 07:39 Impression: 1: No acute fracture. Wrist X-Ray 07/15/25 07:40 Impression: 1: No acute fracture. Elbow X-Ray 07/15/25 07:41 Impression: 1: No acute fracture. Renal Ultrasound 07/15/25 13:09 Impression: 1: Unremarkable renal ultrasound. No stones, masses or hydronephrosis. Chest X-Ray 07/15/25 17:14 Impression: Mild CHF Central Venous Line 07/15/25 17:21 IMPRESSION: 1. Fluoroscopy utilized during reported port catheter insertion. See procedure note for further detail. Labs Labs: Laboratory Results - last 24 hr 07/17/25 07/17/25 07/17/25 11:47 16:45 19:50 WBC RBC Hgb Hct MCV MCH MCHC RDW Plt Count MPV Immature Gran % (Auto) Neut % (Auto) Lymph % (Auto) [place] % (Auto) Eos % (Auto) Baso % (Auto) Lymph # (Auto) [place] # (Auto) Eos # (Auto) Baso # (Auto) Abs Immat Gran (auto) Absolute Neuts (auto) Absolute Nucleated RBC Nucleated RBC % Sodium Potassium Chloride Carbon Dioxide Anion Gap BUN Creatinine Estim Creat Clear Calc Estimated GFR Glucose POC Capillary Glucose 176 H 142 H 218 H Calcium Phosphorus Magnesium Total Bilirubin AST ALT Alkaline Phosphatase Total Creatine Kinase Total Protein Albumin Random Vancomycin 07/18/25 07/18/25 05:12 07:13 WBC 16.9 H RBC 3.08 L Hgb 9.7 L Hct 30.3 L MCV 98.4 MCH 31.5 MCHC 32.0 RDW 14.1 Plt Count 162 MPV 10.9 H Immature Gran % (Auto) 1.5 H Neut % (Auto) 80.6 H Lymph % (Auto) 6.0 L [place] % (Auto) 10.0 H Eos % (Auto) 1.8 Baso % (Auto) 0.1 L Lymph # (Auto) 1.01 [place] # (Auto) 1.7 H Eos # (Auto) 0.3 Baso # (Auto) 0.0 Abs Immat Gran (auto) 0.26 H Absolute Neuts (auto) 13.6 H Absolute Nucleated RBC 0.000 Nucleated RBC % 0.0 Sodium 125 L Potassium 5.1 H Chloride 94 L Carbon Dioxide 23 Anion Gap 8 BUN 94 H D Creatinine 5.08 H Estim Creat Clear Calc 23 Estimated GFR 11 L Glucose 118 H POC Capillary Glucose 126 H Calcium 6.7 L Phosphorus 8.9 H Magnesium 2.2 Total Bilirubin 0.7 AST 803 H ALT 337 H Alkaline Phosphatase 73 Total Creatine Kinase > 82831 H Total Protein 5.2 L Albumin 2.6 L Random Vancomycin 13.0 Quality VTE Prophylaxis VTE prophylaxis: pharmacologic ordered (Continue home Xarelto)
--- NOTE | 2025-07-18 10:26 | P.PNNP_ITS ---
Progress Note: A&P Assessment and Plan (1) Acute kidney injury: Code(s): N17.9 - Acute kidney failure, unspecified Status: Acute Assessment and Plan: * as noted by admission labs - creatinine of 2.07mg/dL * progressively worsening as noted by trend of labs since hospitalization began * complicated by persistent hyperkalemia unresponsive to medical therapy and declining UOP * baseline creatinine normal: * 1.16mg/dL in October 2024 (by outpatient labs by PCP) * 1.30mg/dL in October 2022 ([facility]) * multifactorial etiology: * rhabdomyolysis * LAURY-I use prior to admission * diuretic use (lasix + spironolactone) prior to admission * prerenal factors(?) * infection/early sepsis(?) * other(?) * urine output is still very low. * IV fluids failed to improve CK, creatinine, or urine output. * dialysis is underway * His creatinine improved a little bit after the treatment and now is back up again. * Will do another dialysis Friday * Dr. Keenan notified of request for dialysis catheter placement. will do the next treatment following the replacement of the catheter. * I held Xarelto for tonight in case he does not tomorrow (2) Hyperkalemia: Code(s): E87.5 - Hyperkalemia Status: Acute Assessment and Plan: * recurrent since admission * poor response to medical management despite multiple rounds of therapy to date * Received dialysis yesterday to help potassium. * He has some still a bit high at 5.1 * will give another dose of Lokelma today (3) Rhabdomyolysis: Code(s): M62.82 - Rhabdomyolysis Status: Acute Assessment and Plan: * as noted by elevated CPK * likely related to prolonged downtime from fall * contributing to hyperkalemia and KAITLIN * AST and ALT are continuing to drop but very slowly, indicating some improvement in the CK this CK itself is still greater than 16,000 (4) Sepsis: Qualifiers: Acute renal failure type: unspecified Sepsis acute organ dysfunction status: with acute organ dysfunction Sepsis type: sepsis due to unspecified organism Severe sepsis acute organ dysfunction type: acute renal failure Severe sepsis shock status: without septic shock Qualified Code(s): A41.9 - Sepsis, unspecified organism; R65.20 - Severe sepsis without septic shock; N17.9 - Acute kidney failure, unspecified Code(s): A41.9 - Sepsis, unspecified organism Status: Acute Assessment and Plan: * suspected due to elevated WBC, lactic acidosis, tachycardia, tachypnea on admission * no clear source at this time * blood cultures negative from 07/14 * follow hemodynamics * on empiric antibiotics (5) Atrial fibrillation and flutter: Code(s): I48.91 - Unspecified atrial fibrillation; I48.92 - Unspecified atrial flutter Status: Chronic Assessment and Plan: * paroxysmal in nature * on amiodarone * on anticoagulation (6) Transaminitis: Code(s): R74.01 - Elevation of levels of liver transaminase levels Status: Acute Assessment and Plan: * presumably related to rhabdomyolysis * holding statin * follow trend of LFTs as surrogate for the rhabdo because this CK is so high (7) Hypertension: Code(s): I10 - Essential (primary) hypertension Status: Chronic Assessment and Plan: * systolic is doing well between 100 and 122 * follow trend of hemodynamics (8) Diabetes: Code(s): E11.9 - Type 2 diabetes mellitus without complications Status: Chronic Assessment and Plan: * follow accu-cheks * glycemic control per hospitalist Subjective Date/time seen: 07/18/25 10:26 Interval history: patient is feeling okay. On dialysis and tolerating it well catheter flow is not very good still. Dr. Keenan notified about request for tunneled dialysis catheter placement Exam Narrative: WDWN male in NAD skin no rash. Some chronic actinic changes on his forearms and chronic venous stasis changes throughout the lower extremity below the knees head ncat lungs clear bilaterally cor reg no rub abd BS+ nontender and soft ext trace bilateral edema. Objective Data Vital Signs Vital Signs: Vital Signs - 24 hr 07/17/25 12:00 07/17/25 12:00 07/17/25 14:00 Temperature 98.3 F Pulse Rate 72 76 61 Respiratory Rate 24 H Blood Pressure 102/60 Pulse Oximetry 97 Oxygen Delivery Oxygen Flow Rate Fraction of Inspired Oxygen 07/17/25 16:00 07/17/25 16:00 07/17/25 16:55 Temperature 98.3 F Pulse Rate 69 70 72 Respiratory Rate 20 Blood Pressure 114/58 L Pulse Oximetry 97 Oxygen Delivery Oxygen Flow Rate Fraction of Inspired Oxygen 07/17/25 18:00 07/17/25 20:00 07/17/25 20:00 Temperature 97.4 F L Pulse Rate 68 72 Respiratory Rate 22 H Blood Pressure 112/53 L Pulse Oximetry 95 91 Oxygen Delivery Nasal Cannula Oxygen Flow Rate 1 Fraction of Inspired Oxygen 07/17/25 20:00 07/17/25 21:20 07/17/25 21:22 Temperature Pulse Rate 68 Respiratory Rate Blood Pressure Pulse Oximetry 91 94 Oxygen Delivery Room Air Nasal Cannula Oxygen Flow Rate 1 Fraction of Inspired Oxygen 21 07/17/25 21:54 07/17/25 23:39 07/18/25 00:00 Temperature 97.6 F Pulse Rate 67 87 Respiratory Rate 20 Blood Pressure 103/55 L Pulse Oximetry 94 94 Oxygen Delivery Nasal Cannula Oxygen Flow Rate 1 Fraction of Inspired Oxygen 07/18/25 00:00 07/18/25 02:00 07/18/25 03:56 Temperature Pulse Rate 70 72 Respiratory Rate Blood Pressure Pulse Oximetry 92 Oxygen Delivery Nasal Cannula Oxygen Flow Rate 1 Fraction of Inspired Oxygen 07/18/25 04:00 07/18/25 04:00 07/18/25 05:57 Temperature 97.5 F L Pulse Rate 73 72 64 Respiratory Rate 20 Blood Pressure 124/57 L Pulse Oximetry 95 Oxygen Delivery Oxygen Flow Rate Fraction of Inspired Oxygen 07/18/25 08:00 07/18/25 08:04 07/18/25 08:16 Temperature 97.8 F 97.9 F Pulse Rate 73 72 Respiratory Rate 24 H 20 Blood Pressure 116/56 L 110/56 L Pulse Oximetry 94 95 Oxygen Delivery Oxygen Flow Rate 1 Fraction of Inspired Oxygen 07/18/25 08:16 07/18/25 08:30 07/18/25 08:45 Temperature Pulse Rate 73 75 75 Respiratory Rate Blood Pressure 143/67 H 126/65 109/55 L Pulse Oximetry Oxygen Delivery Oxygen Flow Rate Fraction of Inspired Oxygen 07/18/25 09:00 07/18/25 09:15 07/18/25 09:30 Temperature Pulse Rate 76 80 79 Respiratory Rate Blood Pressure 122/59 L 124/81 120/77 Pulse Oximetry Oxygen Delivery Oxygen Flow Rate Fraction of Inspired Oxygen Intake/Output Intake/Output: Intake & Output 07/15/25 07/16/25 07/17/25 07/18/25 23:59 23:59 23:59 23:59 Intake Total 1630 2570 920 600 Output Total 900 2201 120 150 Balance 730 369 800 450 Meds/Results Medications: Active Medications Generic Name Dose Route Start Last Admin Trade Name Freq PRN Reason Stop Dose Admin Acetaminophen 1,000 mg 07/16/25 09:58 07/17/25 20:32 Acetaminophen 500 Mg Tablet PO 1,000 mg Q6H PRN Administration Mild Pain (1-3) or Fever Albuterol/Ipratropium 3 ml 07/17/25 20:40 07/17/25 21:05 Ipratropium 0.5 Mg/Albuterol Sulfate 2.5 Mg Ampul.Neb 3 Ml INHALATION 3 ml Q6HRT PRN Administration wheezing Amiodarone HCl 200 mg 07/15/25 02:30 07/17/25 09:30 Amiodarone Hcl 200 Mg Tablet PO 200 mg DAILY SALMA Administration Carvedilol 12.5 mg 07/15/25 09:00 07/17/25 16:55 Carvedilol 12.5 Mg Tablet PO 12.5 mg BID SALMA Administration Dextrose 12.5 gm 07/15/25 01:20 Dextrose 50% 25 Gm/50 Ml Syringe IV PUSH PRN PRN Hypoglycemia Protocol Epoetin Sd-epbx 10,000 units 07/18/25 09:00 Epoetin Sd-Epbx 10,000 Units/Ml Vial IV PUSH MOWEFR@09 SALMA Glucagon 1 mg 07/15/25 01:20 Glucagon For Inj 1 Mg Vial IM PRN PRN Hypoglycemia Protocol Glucose 15 gm 07/15/25 01:20 Glucose Oral Gel 15 Gm Of Glucse In 37.5 Gm Tube PO PRN PRN Hypoglycemia Protocol Dextrose 1,000 mls @ 100 mls/hr 07/15/25 01:20 Dextrose 5% 1,000 Ml IVPB PRN PRN Hypoglycemia Protocol Ceftriaxone Sodium 1 gm/ 50 mls @ 100 mls/hr 07/15/25 11:45 07/17/25 09:31 Sodium Chloride IVPB 100 mls/hr DAILY SALMA Administration Albumin Human 50 mls @ 999 mls/hr 07/15/25 15:32 Albutein IVPB 08/14/25 15:31 Q10M PRN HYPOTENSION Albumin Human 50 mls @ 999 mls/hr 07/17/25 11:18 Albutein IVPB 07/18/25 11:17 Q10M PRN HYPOTENSION Vancomycin HCl 1,250 mg in 250 mls @ 166.667 mls/hr 07/18/25 18:00 Vancomycin 1,250 Mg/Ns 250 Ml IVPB 07/18/25 19:29 ONCE ONE Insulin Aspart 3 - 6 units 07/15/25 08:00 07/17/25 16:54 Insulin Aspart (*Bkc) 100 Units/Ml SUB-Q Not Given TIDWM [facility] Protocol Insulin Aspart 1 - 3 units 07/15/25 21:00 07/17/25 20:27 Insulin Aspart (*Bkc) 100 Units/Ml SUB-Q 1 units HS SALMA Administration Protocol Magnesium Hydroxide 30 ml 07/16/25 08:39 Magnesium Hydroxide Susp 30 Ml Udc PO DAILY PRN Constipation Polyethylene Glycol 17 gm 07/16/25 09:00 07/17/25 09:31 Polyethylene Glycol 3350 17 Gm Powd.Pack PO 17 gm QAM SALMA Administration Rivaroxaban 20 mg 07/15/25 17:00 07/17/25 16:55 Rivaroxaban 20 Mg Tablet PO 20 mg DAILY@1700 SALMA Administration Sodium Zirconium Cyclosilicate 10 gm 07/15/25 10:00 07/15/25 17:26 Sodium Zirconium Cyclosilicate 10 Gm Powd.Pack PO Not Given On Hold: 07/15/25 15:36 TID@1000,1500,2200 [facility] Vancomycin HCl 1 each 07/16/25 10:24 Vancomycin For Hemodialysis IVPB PRN PRN Vancomycin Protocol Radiology Results: ITS Impressions Cervical Spine CT 07/15/25 07:00 IMPRESSION: 1. No acute abnormality of the cervical spine. 2: Severe cervical spondylosis. Head CT 07/15/25 07:03 IMPRESSION: 1. No acute intracranial abnormality. Shoulder X-Ray 07/15/25 07:39 Impression: 1: No acute fracture. Wrist X-Ray 07/15/25 07:40 Impression: 1: No acute fracture. Elbow X-Ray 07/15/25 07:41 Impression: 1: No acute fracture. Renal Ultrasound 07/15/25 13:09 Impression: 1: Unremarkable renal ultrasound. No stones, masses or hydronephrosis. Chest X-Ray 07/15/25 17:14 Impression: Mild CHF Central Venous Line 07/15/25 17:21 IMPRESSION: 1. Fluoroscopy utilized during reported port catheter insertion. See procedure note for further detail. Labs Labs: Laboratory Results - last 24 hr 07/17/25 07/17/25 07/17/25 11:47 16:45 19:50 WBC RBC Hgb Hct MCV MCH MCHC RDW Plt Count MPV Immature Gran % (Auto) Neut % (Auto) Lymph % (Auto) [place] % (Auto) Eos % (Auto) Baso % (Auto) Lymph # (Auto) [place] # (Auto) Eos # (Auto) Baso # (Auto) Abs Immat Gran (auto) Absolute Neuts (auto) Absolute Nucleated RBC Nucleated RBC % Sodium Potassium Chloride Carbon Dioxide Anion Gap BUN Creatinine Estim Creat Clear Calc Estimated GFR Glucose POC Capillary Glucose 176 H 142 H 218 H Calcium Phosphorus Magnesium Total Bilirubin AST ALT Alkaline Phosphatase Total Creatine Kinase Total Protein Albumin Random Vancomycin 07/18/25 07/18/25 05:12 07:13 WBC 16.9 H RBC 3.08 L Hgb 9.7 L Hct 30.3 L MCV 98.4 MCH 31.5 MCHC 32.0 RDW 14.1 Plt Count 162 MPV 10.9 H Immature Gran % (Auto) 1.5 H Neut % (Auto) 80.6 H Lymph % (Auto) 6.0 L [place] % (Auto) 10.0 H Eos % (Auto) 1.8 Baso % (Auto) 0.1 L Lymph # (Auto) 1.01 [place] # (Auto) 1.7 H Eos # (Auto) 0.3 Baso # (Auto) 0.0 Abs Immat Gran (auto) 0.26 H Absolute Neuts (auto) 13.6 H Absolute Nucleated RBC 0.000 Nucleated RBC % 0.0 Sodium 125 L Potassium 5.1 H Chloride 94 L Carbon Dioxide 23 Anion Gap 8 BUN 94 H D Creatinine 5.08 H Estim Creat Clear Calc 23 Estimated GFR 11 L Glucose 118 H POC Capillary Glucose 126 H Calcium 6.7 L Phosphorus 8.9 H Magnesium 2.2 Total Bilirubin 0.7 AST 803 H ALT 337 H Alkaline Phosphatase 73 Total Creatine Kinase > 41971 H Total Protein 5.2 L Albumin 2.6 L Random Vancomycin 13.0
[2025-07-18] MEDS: EPOETIN ALFA-EPBX 10,000 UNITS/ML VIAL 10000 UNITS IV PUSH (11:16)
--- NOTE | 2025-07-18 11:31 | P.PNGS_ITS ---
Progress Note: A&P Assessment and Plan (1) Encounter for fitting and adjustment of vascular catheter: Code(s): Z45.2 - Encounter for adjustment and management of vascular access device Status: Acute Assessment and Plan: requested by Nephrology to place a tunneled central venous catheter for longer- term hemodialysis. Have scheduled this procedure to be done tomorrow, 07/19/2025. 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 Status: Acute (6) Obstructive sleep apnea: Code(s): G47.33 - Obstructive sleep apnea (adult) (pediatric) Status: Acute Subjective Subjective Date/Time Seen: 07/18/25 11:31 Objective Data Vital Signs Vital Signs: Vital Signs - 24 hr 07/17/25 12:00 07/17/25 12:00 07/17/25 14:00 Temperature 36.8 C Pulse Rate 72 76 61 Respiratory Rate 24 H Blood Pressure 102/60 Pulse Oximetry 97 Oxygen Delivery Oxygen Flow Rate Fraction of Inspired Oxygen 07/17/25 16:00 07/17/25 16:00 07/17/25 16:55 Temperature 36.8 C Pulse Rate 69 70 72 Respiratory Rate 20 Blood Pressure 114/58 L Pulse Oximetry 97 Oxygen Delivery Oxygen Flow Rate Fraction of Inspired Oxygen 07/17/25 18:00 07/17/25 20:00 07/17/25 20:00 Temperature 36.3 C L Pulse Rate 68 72 Respiratory Rate 22 H Blood Pressure 112/53 L Pulse Oximetry 95 91 Oxygen Delivery Nasal Cannula Oxygen Flow Rate 1 Fraction of Inspired Oxygen 07/17/25 20:00 07/17/25 21:20 07/17/25 21:22 Temperature Pulse Rate 68 Respiratory Rate Blood Pressure Pulse Oximetry 91 94 Oxygen Delivery Room Air Nasal Cannula Oxygen Flow Rate 1 Fraction of Inspired Oxygen 07/17/25 21:54 07/17/25 23:39 07/18/25 00:00 Temperature 36.4 C Pulse Rate 67 87 Respiratory Rate 20 Blood Pressure 103/55 L Pulse Oximetry 94 94 Oxygen Delivery Nasal Cannula Oxygen Flow Rate 1 Fraction of Inspired Oxygen 07/18/25 00:00 07/18/25 02:00 07/18/25 03:56 Temperature Pulse Rate 70 72 Respiratory Rate Blood Pressure Pulse Oximetry 92 Oxygen Delivery Nasal Cannula Oxygen Flow Rate 1 Fraction of Inspired Oxygen 07/18/25 04:00 07/18/25 04:00 07/18/25 05:57 Temperature 36.4 C L Pulse Rate 73 72 64 Respiratory Rate 20 Blood Pressure 124/57 L Pulse Oximetry 95 Oxygen Delivery Oxygen Flow Rate Fraction of Inspired Oxygen 07/18/25 08:00 07/18/25 08:04 07/18/25 08:16 Temperature 36.6 C 36.6 C Pulse Rate 73 72 Respiratory Rate 24 H 20 Blood Pressure 116/56 L 110/56 L Pulse Oximetry 94 95 Oxygen Delivery Oxygen Flow Rate 1 Fraction of Inspired Oxygen 07/18/25 08:16 07/18/25 08:30 07/18/25 08:35 Temperature Pulse Rate 73 75 77 Respiratory Rate Blood Pressure 143/67 H 126/65 Pulse Oximetry Oxygen Delivery Oxygen Flow Rate Fraction of Inspired Oxygen 07/18/25 08:45 07/18/25 09:00 07/18/25 09:15 Temperature Pulse Rate 75 76 80 Respiratory Rate Blood Pressure 109/55 L 122/59 L 124/81 Pulse Oximetry Oxygen Delivery Oxygen Flow Rate Fraction of Inspired Oxygen 07/18/25 09:30 07/18/25 09:45 07/18/25 10:00 Temperature Pulse Rate 79 78 80 Respiratory Rate Blood Pressure 120/77 129/51 L 133/50 L Pulse Oximetry Oxygen Delivery Oxygen Flow Rate Fraction of Inspired Oxygen 07/18/25 10:15 07/18/25 10:30 07/18/25 10:45 Temperature Pulse Rate 78 78 80 Respiratory Rate Blood Pressure 123/60 118/60 131/64 Pulse Oximetry Oxygen Delivery Oxygen Flow Rate Fraction of Inspired Oxygen Intake/Output Intake/Output: Intake & Output 07/15/25 07/16/25 07/17/25 07/18/25 23:59 23:59 23:59 23:59 Intake Total 1630 2570 920 600 Output Total 900 2201 120 150 Balance 730 369 800 450 Meds/Results Medications: Active Medications Generic Name Dose Route Start Last Admin Trade Name Igor PRN Reason Stop Dose Admin Acetaminophen 1,000 mg 07/16/25 09:58 07/17/25 20:32 Acetaminophen 500 Mg Tablet PO 1,000 mg Q6H PRN Administration Mild Pain (1-3) or Fever Albuterol/Ipratropium 3 ml 07/17/25 20:40 07/17/25 21:05 Ipratropium 0.5 Mg/Albuterol Sulfate 2.5 Mg Ampul.Neb 3 Ml INHALATION 3 ml Q6HRT PRN Administration wheezing Amiodarone HCl 200 mg 07/15/25 02:30 07/17/25 09:30 Amiodarone Hcl 200 Mg Tablet PO 200 mg DAILY SALMA Administration Carvedilol 12.5 mg 07/15/25 09:00 07/17/25 16:55 Carvedilol 12.5 Mg Tablet PO 12.5 mg BID SALMA Administration Dextrose 12.5 gm 07/15/25 01:20 Dextrose 50% 25 Gm/50 Ml Syringe IV PUSH PRN PRN Hypoglycemia Protocol Epoetin Sd-epbx 10,000 units 07/18/25 09:00 07/18/25 11:16 Epoetin Sd-Epbx 10,000 Units/Ml Vial IV PUSH 10,000 units MOWEFR@09 SALMA Administration Glucagon 1 mg 07/15/25 01:20 Glucagon For Inj 1 Mg Vial IM PRN PRN Hypoglycemia Protocol Glucose 15 gm 07/15/25 01:20 Glucose Oral Gel 15 Gm Of Glucse In 37.5 Gm Tube PO PRN PRN Hypoglycemia Protocol Dextrose 1,000 mls @ 100 mls/hr 07/15/25 01:20 Dextrose 5% 1,000 Ml IVPB PRN PRN Hypoglycemia Protocol Ceftriaxone Sodium 1 gm/ 50 mls @ 100 mls/hr 07/15/25 11:45 07/17/25 09:31 Sodium Chloride IVPB 100 mls/hr DAILY SALMA Administration Albumin Human 50 mls @ 999 mls/hr 07/15/25 15:32 Albutein IVPB 08/14/25 15:31 Q10M PRN HYPOTENSION Vancomycin HCl 1,250 mg in 250 mls @ 166.667 mls/hr 07/18/25 18:00 Vancomycin 1,250 Mg/Ns 250 Ml IVPB 07/18/25 19:29 ONCE ONE Insulin Aspart 3 - 6 units 07/15/25 08:00 07/18/25 11:04 Insulin Aspart (*Bkc) 100 Units/Ml SUB-Q Not Given TIDWM [facility] Protocol Insulin Aspart 1 - 3 units 07/15/25 21:00 07/17/25 20:27 Insulin Aspart (*Bkc) 100 Units/Ml SUB-Q 1 units HS SALMA Administration Protocol Magnesium Hydroxide 30 ml 07/16/25 08:39 Magnesium Hydroxide Susp 30 Ml Udc PO DAILY PRN Constipation Polyethylene Glycol 17 gm 07/16/25 09:00 07/17/25 09:31 Polyethylene Glycol 3350 17 Gm Powd.Pack PO 17 gm QAM SALMA Administration Rivaroxaban 20 mg 07/15/25 17:00 07/17/25 16:55 Rivaroxaban 20 Mg Tablet PO 20 mg On Hold: 07/18/25 10:26 DAILY@1700 SALMA Administration Sodium Zirconium Cyclosilicate 10 gm 07/15/25 10:00 07/15/25 17:26 Sodium Zirconium Cyclosilicate 10 Gm Powd.Pack PO Not Given On Hold: 07/15/25 15:36 TID@1000,1500,2200 [facility] Vancomycin HCl 1 each 07/16/25 10:24 Vancomycin For Hemodialysis IVPB PRN PRN Vancomycin Protocol Radiology Results: ITS Impressions Cervical Spine CT 07/15/25 07:00 IMPRESSION: 1. No acute abnormality of the cervical spine. 2: Severe cervical spondylosis. Head CT 07/15/25 07:03 IMPRESSION: 1. No acute intracranial abnormality. Shoulder X-Ray 07/15/25 07:39 Impression: 1: No acute fracture. Wrist X-Ray 07/15/25 07:40 Impression: 1: No acute fracture. Elbow X-Ray 07/15/25 07:41 Impression: 1: No acute fracture. Renal Ultrasound 07/15/25 13:09 Impression: 1: Unremarkable renal ultrasound. No stones, masses or hydronephrosis. Chest X-Ray 07/15/25 17:14 Impression: Mild CHF Central Venous Line 07/15/25 17:21 IMPRESSION: 1. Fluoroscopy utilized during reported port catheter insertion. See procedure note for further detail. Labs Labs: Laboratory Results - last 24 hr 07/17/25 07/17/25 07/17/25 11:47 16:45 19:50 WBC RBC Hgb Hct MCV MCH MCHC RDW Plt Count MPV Immature Gran % (Auto) Neut % (Auto) Lymph % (Auto) [place] % (Auto) Eos % (Auto) Baso % (Auto) Lymph # (Auto) [place] # (Auto) Eos # (Auto) Baso # (Auto) Abs Immat Gran (auto) Absolute Neuts (auto) Absolute Nucleated RBC Nucleated RBC % Sodium Potassium Chloride Carbon Dioxide Anion Gap BUN Creatinine Estim Creat Clear Calc Estimated GFR Glucose POC Capillary Glucose 176 H 142 H 218 H Calcium Phosphorus Magnesium Total Bilirubin AST ALT Alkaline Phosphatase Total Creatine Kinase Total Protein Albumin Random Vancomycin 07/18/25 07/18/25 05:12 07:13 WBC 16.9 H RBC 3.08 L Hgb 9.7 L Hct 30.3 L MCV 98.4 MCH 31.5 MCHC 32.0 RDW 14.1 Plt Count 162 MPV 10.9 H Immature Gran % (Auto) 1.5 H Neut % (Auto) 80.6 H Lymph % (Auto) 6.0 L [place] % (Auto) 10.0 H Eos % (Auto) 1.8 Baso % (Auto) 0.1 L Lymph # (Auto) 1.01 [place] # (Auto) 1.7 H Eos # (Auto) 0.3 Baso # (Auto) 0.0 Abs Immat Gran (auto) 0.26 H Absolute Neuts (auto) 13.6 H Absolute Nucleated RBC 0.000 Nucleated RBC % 0.0 Sodium 125 L Potassium 5.1 H Chloride 94 L Carbon Dioxide 23 Anion Gap 8 BUN 94 H D Creatinine 5.08 H Estim Creat Clear Calc 23 Estimated GFR 11 L Glucose 118 H POC Capillary Glucose 126 H Calcium 6.7 L Phosphorus 8.9 H Magnesium 2.2 Total Bilirubin 0.7 AST 803 H ALT 337 H Alkaline Phosphatase 73 Total Creatine Kinase > 51366 H Total Protein 5.2 L Albumin 2.6 L Random Vancomycin 13.0
[2025-07-18] MEDS: AMIODARONE HCL 200 MG TABLET PO (12:28)
[2025-07-18] MEDS: cefTRIAXone 1 GM in SODIUM CHLORIDE 0.9% IV 50 ML 100 ML IVPB (12:28)
--- NOTE | 2025-07-18 12:51 | PC.NURSE ---
1240- returned to room post dialysis - denies any pain
[2025-07-18] MEDS: ACETAMINOPHEN 500 MG TABLET 1000 MG PO (16:13)
[2025-07-18] MEDS: VANCOMYCIN 1,250 MG/NS 250 ML 1,250 MG/250 ML BAG 166.67 MG IVPB (17:32)
[2025-07-18] MEDS: IPRATROPIUM 0.5 MG/ALBUTEROL SULFATE 2.5 MG AMPUL.NEB 3 ML INHALATION (23:32)
[2025-07-19] VITALS (21 sets, daily range): BP systolic 108–137; BP diastolic 48–68; PULSE 59–79; RESP 16–28; TEMP 36.4–36.8; O2SAT 93–99
[2025-07-19 05:52] LABS: Hematocrit 22.2 % (42.0-52.0); Immature Granulocyte Percent A 2.8 % (0-0.5); Lymphocytes Absolute Auto 1.00 K/mm3 (0.9-3.2); Mean Corpuscular HGB Conc 30.6 g/dl (32-36); Mean Corpuscular Hemoglobin 31.8 pg (26-34); Mean Corpuscular Volume 103.7 fl (80-100); Nucleated Red Blood Cells Absolute Auto 0.000 K/mm3 (0.0-0.012); Nucleated Red Blood Cells Perc 0.0 % (0.0-0.2); Platelet Count Result 131 k/mm3 (150-375); Red Blood Count 2.14 M/mm3 (4.6-6.20); White Blood Count 14.2 K/mm3 (4.5-10.0)
[2025-07-19 05:57] LABS: Hemoglobin 6.8 g/dL (14.0-18.0)
--- NOTE | 2025-07-19 07:00 | PC.NURSE ---
Per Dr. Lemos, pigtail is OK to use for lab draw as needed.
[2025-07-19 07:34] LABS: Hematocrit 29.8 % (42.0-52.0); Hemoglobin 9.6 g/dL (14.0-18.0)
[2025-07-19 07:59] LABS: Hematocrit 29.7 % (42.0-52.0); Hemoglobin 9.5 g/dL (14.0-18.0); Immature Granulocyte Percent A 3.2 % (0-0.5); Lymphocytes Absolute Auto 1.03 K/mm3 (0.9-3.2); Mean Corpuscular HGB Conc 32.0 g/dl (32-36); Mean Corpuscular Hemoglobin 31.1 pg (26-34); Mean Corpuscular Volume 97.4 fl (80-100); Nucleated Red Blood Cells Absolute Auto 0.020 K/mm3 (0.0-0.012); Nucleated Red Blood Cells Perc 0.1 % (0.0-0.2); Platelet Count Result 199 k/mm3 (150-375); Red Blood Count 3.05 M/mm3 (4.6-6.20); White Blood Count 16.0 K/mm3 (4.5-10.0)
[2025-07-19 08:00] LABS: Blood Urea Nitrogen 80 mg/dL (9-20)
[2025-07-19 08:02] LABS: Alanine Aminotransferase 296 U/L (6-50); Albumin Level 2.6 g/dL (3.5-5.1); Alkaline Phosphatase 84 U/L (38-126); Anion Gap 7 mmol/L (4-12); Aspartate Amino Transferase 620 U/L (17-59); Bilirubin,Total 0.5 mg/dL (0.2-1.3); Calcium 6.5 mg/dL (8.4-10.2); Carbon Dioxide 26 mmol/L (22-30); Chloride 92 mmol/L (98-107); Estimated CRCL calculation 23 ml/min; Estimated Glomerular Filt Rate 12; Glucose 124 mg/dL (65-110); Magnesium 2.1 mg/dL (1.6-2.3); Potassium 5.0 mmol/L (3.4-5.0); Sodium 125 mmol/L (137-145); Total Protein 5.3 g/dL (6.3-8.2)
[2025-07-19 08:20] LABS: Creatine Kinase > 16000 U/L (55-170)
--- NOTE | 2025-07-19 10:44 | P.PNNP_ITS ---
Progress Note: A&P Assessment and Plan (1) Acute kidney injury: Code(s): N17.9 - Acute kidney failure, unspecified Status: Acute Assessment and Plan: * as noted by admission labs - creatinine of 2.07mg/dL * progressively worsening as noted by trend of labs since hospitalization began * was also complicated by persistent hyperkalemia unresponsive to medical therapy and declining UOP * baseline creatinine normal: * 1.16mg/dL in October 2024 (by outpatient labs by PCP) * 1.30mg/dL in October 2022 ([facility]) * multifactorial etiology: * rhabdomyolysis * LAURY-I use prior to admission * diuretic use (lasix + spironolactone) prior to admission * prerenal factors(?) * infection/early sepsis(?) * other(?) * still with poor urine output * tunneled HD catheter placement today * plan next HD treatment tomorrow * follow trend of repeat labs and UOP for potential renal recovery (2) Hyperkalemia: Code(s): E87.5 - Hyperkalemia Status: Acute Assessment and Plan: * recurrent since admission * poor response to medical management despite multiple rounds of therapy to date * better control with dialysis * follow trend of repeat K+ levels (3) Rhabdomyolysis: Code(s): M62.82 - Rhabdomyolysis Status: Acute Assessment and Plan: * as noted by elevated CPK * likely related to prolonged downtime from fall * contributing to hyperkalemia and KAITLIN * CPK remains greater than 16,000 by serial testing... (4) Sepsis: Qualifiers: Acute renal failure type: unspecified Sepsis acute organ dysfunction status: with acute organ dysfunction Sepsis type: sepsis due to unspecified organism Severe sepsis acute organ dysfunction type: acute renal failure S evere sepsis shock status: without septic shock Qualified Code(s): A41.9 - Sepsis, unspecified organism; R65.20 - Severe sepsis without septic shock; N17.9 - Acute kidney failure, unspecified Code(s): A41.9 - Sepsis, unspecified organism Status: Acute Assessment and Plan: * suspected due to elevated WBC, lactic acidosis, tachycardia, tachypnea on admission * no clear source at this time * blood cultures negative from 07/14 * follow hemodynamics * on empiric antibiotics (5) Atrial fibrillation and flutter: Code(s): I48.91 - Unspecified atrial fibrillation; I48.92 - Unspecified atrial flutter Status: Chronic Assessment and Plan: * paroxysmal in nature * on amiodarone * on anticoagulation (6) Transaminitis: Code(s): R74.01 - Elevation of levels of liver transaminase levels Status: Acute Assessment and Plan: * presumably related to rhabdomyolysis * holding statin * continue follow trend of LFTs as surrogate for the rhabdo (because this CK is so high) (7) Hypertension: Code(s): I10 - Essential (primary) hypertension Status: Chronic Assessment and Plan: * reasonable control * follow trend of hemodynamics (8) Diabetes: Code(s): E11.9 - Type 2 diabetes mellitus without complications Status: Chronic Assessment and Plan: * follow accu-cheks * glycemic control per hospitalist Long and extensive discussion (> 25 minutes) with sister at bedside and patient regarding his renal failure and the ongoing need for [employer]/dialysis until his kidneys show some signs of improvement in association with stability in his electrolytes... Will continue to follow. L Subjective Date/time seen: 07/19/25 10:44 Interval history: Follow-up for acute kidney injury/acute renal failure and hyperkalemia. Chart reviewed since last seen -- tolerated dialysis treatment yesterday but temporary HD catheter not working very well; potassium doing better but renal function/creatinine worsens without dialytic intervention and still not making much urine; sister at bedside and we discussed the situation in great detail; noted plans for tunneled HD catheter placement today. Exam 2 Narrative: General: elderly but large and WD/WN male in NAD Heart: normal S1 and S2; no rub Lungs: clear to auscultation Abdomen: soft, nontender, nondistended, positive bowel sounds Extremities: no cyanosis or clubbing; trace edema Skin: venous stasis changes over BLEs Objective Data Vital Signs Vital Signs: Vital Signs Temp Pulse Resp BP Pulse Ox O2 Del Method O2 Flow Rate 07/19/25 10:28 98.0 F 76 20 137/59 L 96 Nasal Cannula 2 07/19/25 08:01 Nasal Cannula 1 07/19/25 08:00 79 07/19/25 07:35 98.1 F 75 24 H 121/56 L 95 07/19/25 06:00 72 07/19/25 04:00 72 07/19/25 04:00 97.9 F 72 21 H 120/59 L 93 07/19/25 02:00 74 07/19/25 00:00 79 07/18/25 23:43 97.8 F 73 23 H 114/47 L 94 07/18/25 23:39 71 22 H 07/18/25 23:33 70 95 Nasal Cannula 1 07/18/25 23:33 70 24 H 07/18/25 22:00 72 07/18/25 20:00 75 07/18/25 19:40 97.4 F L 74 21 H 113/44 L 95 Intake/Output Intake/Output: Intake & Output 07/16/25 07/17/25 07/18/25 07/19/25 23:59 23:59 23:59 23:59 Intake Total 2570 970 3580 451 Output Total 2201 120 3250 350 Balance 369 850 330 101 Meds/Results Medications: Active Medications Generic Name Dose Route Start Last Admin Trade Name Freq PRN Reason Stop Dose Admin Acetaminophen 1,000 mg 07/16/25 09:58 07/18/25 16:13 Acetaminophen 500 Mg Tablet PO 1,000 mg Q6H PRN Administration Fever Acetaminophen 500 mg 07/19/25 14:13 Acetaminophen 500 Mg Tablet PO Q6H PRN Pain Rated 1-3 Albuterol/Ipratropium 3 ml 07/17/25 20:40 07/18/25 23:32 Ipratropium 0.5 Mg/Albuterol Sulfate 2.5 Mg Ampul.Neb 3 Ml INHALATION 3 ml Q6HRT PRN Administration wheezing Amiodarone HCl 200 mg 07/15/25 02:30 07/19/25 14:44 Amiodarone Hcl 200 Mg Tablet PO 200 mg DAILY SALMA Administration Carvedilol 12.5 mg 07/15/25 09:00 07/19/25 18:29 Carvedilol 12.5 Mg Tablet PO Not Given BID SALMA Dextrose 12.5 gm 07/15/25 01:20 Dextrose 50% 25 Gm/50 Ml Syringe IV PUSH PRN PRN Hypoglycemia Protocol Epoetin Sd-epbx 10,000 units 07/18/25 09:00 07/18/25 11:16 Epoetin Sd-Epbx 10,000 Units/Ml Vial IV PUSH 10,000 units MOWEFR@09 SALMA Administration Glucagon 1 mg 07/15/25 01:20 Glucagon For Inj 1 Mg Vial IM PRN PRN Hypoglycemia Protocol Glucose 15 gm 07/15/25 01:20 Glucose Oral Gel 15 Gm Of Glucse In 37.5 Gm Tube PO PRN PRN Hypoglycemia Protocol Hydromorphone HCl 1 mg 07/19/25 14:13 Hydromorphone Hcl Inj (*Crx) 1 Mg/Ml Syr IV PUSH Q2H PRN Breakthrough Pain Rated 7-10 or NPO Hydromorphone HCl 0.5 mg 07/19/25 14:13 Hydromorphone Hcl Inj (*Crx) 1 Mg/Ml Syr IV PUSH Q2H PRN Breakthrough Pain Rated 4-6 or NPO Dextrose 1,000 mls @ 100 mls/hr 07/15/25 01:20 Dextrose 5% 1,000 Ml IVPB PRN PRN Hypoglycemia Protocol Ceftriaxone Sodium 1 gm/ 50 mls @ 100 mls/hr 07/15/25 11:45 07/19/25 14:44 Sodium Chloride IVPB 50 mls/hr DAILY SALMA Administration Albumin Human 50 mls @ 999 mls/hr 07/15/25 15:32 Albutein IVPB 08/14/25 15:31 Q10M PRN HYPOTENSION Insulin Aspart 3 - 6 units 07/15/25 08:00 07/19/25 18:26 Insulin Aspart (*Bkc) 100 Units/Ml SUB-Q Not Given TIDWM [facility] Protocol Insulin Aspart 1 - 3 units 07/15/25 21:00 07/19/25 00:06 Insulin Aspart (*Bkc) 100 Units/Ml SUB-Q Not Given HS [facility] Protocol Magnesium Hydroxide 30 ml 07/16/25 08:39 Magnesium Hydroxide Susp 30 Ml Udc PO DAILY PRN Constipation Naloxone HCl 0.1 mg 07/19/25 14:13 Naloxone Hcl 0.4 Mg/Ml Vial IV PUSH Q2M PRN Opiate Reversal Oxycodone HCl 2.5 mg 07/19/25 14:13 Oxycodone Hcl (*Crx) 2.5 Mg Tab Ir PO Q4H PRN Pain Rated 4-6 Oxycodone HCl 5 mg 07/19/25 14:13 07/19/25 14:41 Oxycodone Hcl (*Crx) 5 Mg Tab Ir PO 5 mg Q4H PRN Administration Pain Rated 7-10 Polyethylene Glycol 17 gm 07/16/25 09:00 07/19/25 14:43 Polyethylene Glycol 3350 17 Gm Powd.Pack PO Not Given QAM SALMA Rivaroxaban 20 mg 07/15/25 17:00 07/17/25 16:55 Rivaroxaban 20 Mg Tablet PO 20 mg On Hold: 07/18/25 10:26 DAILY@1700 SALMA Administration Sodium Chloride 10 ml 07/19/25 22:00 Central Line Flush IV PUSH Q8HR SALMA Sodium Chloride 10 ml 07/19/25 17:03 Central Line Flush IV PUSH PRN PRN with TPN bag changes Sodium Chloride 20 ml 07/19/25 17:03 Central Line Flush IV PUSH PRN PRN after blood draws Sodium Zirconium Cyclosilicate 10 gm 07/15/25 10:00 07/15/25 17:26 Sodium Zirconium Cyclosilicate 10 Gm Powd.Pack PO Not Given On Hold: 07/15/25 15:36 TID@1000,1500,2200 SALMA Vancomycin HCl 1 each 07/16/25 10:24 Vancomycin For Hemodialysis IVPB PRN PRN Vancomycin Protocol Radiology Results: ITS Impressions Cervical Spine CT 07/15/25 07:00 IMPRESSION: 1. No acute abnormality of the cervical spine. 2: Severe cervical spondylosis. Head CT 07/15/25 07:03 IMPRESSION: 1. No acute intracranial abnormality. Shoulder X-Ray 07/15/25 07:39 Impression: 1: No acute fracture. Wrist X-Ray 07/15/25 07:40 Impression: 1: No acute fracture. Elbow X-Ray 07/15/25 07:41 Impression: 1: No acute fracture. Renal Ultrasound 07/15/25 13:09 Impression: 1: Unremarkable renal ultrasound. No stones, masses or hydronephrosis. Chest X-Ray 07/19/25 13:43 Impression: 1: Cardiomegaly with mild interstitial edema. Central Venous Line 07/19/25 13:50 IMPRESSION: Fluoroscopy used during portacatheter placement. Labs Labs: Laboratory Tests 07/19/25 07:21 07/19/25 07:21 Calcium 6.5 L Phosphorus 8.5 H Magnesium 2.1 Total Bilirubin 0.5 AST 620 H ALT 296 H Alkaline Phosphatase 84 Total Creatine Kinase > 72474 H Total Protein 5.3 L Albumin 2.6 L Microbiology 07/14/25 22:18 Blood Blood Culture - Preliminary 07/14/25 20:35 Blood Blood Culture - Preliminary
[2025-07-19] MEDS: SODIUM CHLORIDE 0.9% IV 500 ML 30 ML IV CONT (11:30)
--- NOTE | 2025-07-19 11:49 | WPDANESEPPF ---
Anes - Initial Pre Proc Eval Procedure: Operation Date: 07/15/25 15:00 Proposed Procedures p Insertion Temporary Hemodialysis Catheter Under Fluoroscopy - Chris Keenan MD Operation Date: 07/19/25 16:45 Proposed Procedures p Placement Tunneled Dialysis Catheter Under Fluoroscopy - Chris Keenan MD Date/Time: 07/19/25 11:49 Surgeon: Mary Lemos DO Pre Op Diagnosis: Rhabdo Patient Data Age: 69 Gender: M Height: 1.88 m Weight: 187.7 kg Last Vital Signs Temp 36.7 C 07/19/25 11:28 Pulse 76 07/19/25 11:28 Resp 20 07/19/25 11:28 BP 137/59 L 07/19/25 11:28 Pulse Ox 96 07/19/25 11:28 O2 Del Method Nasal Cannula 07/19/25 11:28 O2 Flow Rate 2 07/19/25 11:28 FiO2 21 07/17/25 21:20 Allergies Allergy/AdvReac Type Severity Reaction Status Date / Time No Known Allergies Allergy Unknown Verified 07/15/25 14:47 Home Medications ?Medication ?Instructions ?Recorded ?Confirmed ?Type furosemide 20 mg tablet 20 mg PO DAILY 10/28/22 07/15/25 History lisinopril 10 mg tablet 10 mg PO DAILY 10/28/22 07/15/25 History metformin 500 mg tablet 1,000 mg PO BID 10/28/22 07/15/25 History pravastatin 20 mg tablet 20 mg PO DAILY 10/28/22 07/15/25 History rivaroxaban 20 mg tablet (Xarelto) 20 mg PO HS 10/28/22 07/15/25 History spironolactone 25 mg tablet 25 mg PO EVERY OTHER DAY 10/28/22 07/15/25 History spironolactone 25 mg tablet 12.5 mg PO EVERY OTHER DAY 10/29/22 07/15/25 History carvedilol 25 mg tablet 12.5 mg (1/2 x 25 mg) PO BID #30 10/31/22 07/15/25 Rx tabs amiodarone 200 mg tablet (Pacerone) 200 mg PO Q24H 07/15/25 07/15/25 History blood sugar diagnostic (OneTouch 07/15/25 07/15/25 History Verio test strips) glipizide 10 mg tablet 10 mg PO DAILY 07/15/25 07/15/25 History Laboratory Tests 07/18/25 07/18/25 07/18/25 11:52 12:25 15:41 WBC RBC Hgb Hct MCV MCH MCHC RDW Plt Count MPV Immature Gran % (Auto) Neut % (Auto) Lymph % (Auto) Motley % (Auto) Eos % (Auto) Baso % (Auto) Lymph # (Auto) Motley # (Auto) Eos # (Auto) Baso # (Auto) Abs Immat Gran (auto) Absolute Neuts (auto) Absolute Nucleated RBC Nucleated RBC % Sodium Potassium Chloride Carbon Dioxide Anion Gap BUN Creatinine Estim Creat Clear Calc Estimated GFR Glucose POC Capillary Glucose 123 H mg/dl 158 H mg/dl (65-105) (65-105) Calcium Phosphorus Magnesium Total Bilirubin AST ALT Alkaline Phosphatase Total Creatine Kinase Total Protein Albumin Random Vancomycin Blood Type A Positive Antibody Screen Negative 07/18/25 07/19/25 07/19/25 19:49 05:10 07:10 WBC 14.2 H K/mm3 16.0 H K/mm3 (4.5-10.0) (4.5-10.0) RBC 2.14 L M/mm3 3.05 L M/mm3 (4.6-6.20) (4.6-6.20) Hgb 6.8 L* g/dL 9.5 L g/dL (14.0-18.0) (14.0-18.0) Hct 22.2 L % 29.7 L % (42.0-52.0) (42.0-52.0) MCV 103.7 H D fl 97.4 D fl (80-100) (80-100) MCH 31.8 pg 31.1 pg (26-34) (26-34) MCHC 30.6 L g/dl 32.0 g/dl (32-36) (32-36) RDW 14.1 % 14.1 % (11.5-14.5) (11.5-14.5) Plt Count 131 L k/mm3 199 D k/mm3 (150-375) (150-375) MPV 11.1 H fl 10.7 H fl (7.4-10.4) (7.4-10.4) Immature Gran % (Auto) 2.8 H % 3.2 H % (0-0.5) (0-0.5) Neut % (Auto) 76.0 H % 77.0 H % (45.5-73.1) (45.5-73.1) Lymph % (Auto) 7.1 L % 6.4 L % (18.3-44.2) (18.3-44.2) Motley % (Auto) 11.6 H % 10.8 H % (2.6-8.5) (2.6-8.5) Eos % (Auto) 2.3 % 2.4 % (0-4.4) (0-4.4) Baso % (Auto) 0.2 % 0.2 % (0.2-1.2) (0.2-1.2) Lymph # (Auto) 1.00 K/mm3 1.03 K/mm3 (0.9-3.2) (0.9-3.2) Motley # (Auto) 1.6 H K/mm3 1.7 H K/mm3 (0.1-0.6) (0.1-0.6) Eos # (Auto) 0.3 K/mm3 0.4 H K/mm3 (0-0.3) (0-0.3) Baso # (Auto) 0.0 K/mm3 0.0 K/mm3 (0.0-0.1) (0.0-0.1) Abs Immat Gran (auto) 0.40 H K/mm3 0.51 H K/mm3 (0.00-0.031) (0.00-0.031) Absolute Neuts (auto) 10.8 H K/mm3 12.4 H K/mm3 (1.3-6.7) (1.3-6.7) Absolute Nucleated RBC 0.000 K/mm3 0.020 H K/mm3 (0.0-0.012) (0.0-0.012) Nucleated RBC % 0.0 % 0.1 % (0.0-0.2) (0.0-0.2) Sodium Potassium Chloride Carbon Dioxide Anion Gap BUN Creatinine Estim Creat Clear Calc Estimated GFR Glucose POC Capillary Glucose 166 H mg/dl 119 H mg/dl (65-105) (65-105) Calcium Phosphorus Magnesium Total Bilirubin AST ALT Alkaline Phosphatase Total Creatine Kinase Total Protein Albumin Random Vancomycin 17.0 ug/mL (10-20) Blood Type Antibody Screen 07/19/25 07/19/25 07:21 11:23 WBC RBC Hgb 9.6 L g/dL (14.0-18.0) Hct 29.8 L % (42.0-52.0) MCV MCH MCHC RDW Plt Count MPV Immature Gran % (Auto) Neut % (Auto) Lymph % (Auto) Motley % (Auto) Eos % (Auto) Baso % (Auto) Lymph # (Auto) Motley # (Auto) Eos # (Auto) Baso # (Auto) Abs Immat Gran (auto) Absolute Neuts (auto) Absolute Nucleated RBC Nucleated RBC % Sodium 125 L mmol/L (137-145) Potassium 5.0 mmol/L (3.4-5.0) Chloride 92 L mmol/L (98-107) Carbon Dioxide 26 mmol/L (22-30) Anion Gap 7 mmol/L (4-12) BUN 80 H D mg/dL (9-20) Creatinine 4.82 H mg/dL (0.7-1.3) Estim Creat Clear Calc 23 ml/min Estimated GFR 12 L (59 - ) Glucose 124 H mg/dL (65-110) POC Capillary Glucose 127 H mg/dl (65-105) Calcium 6.5 L mg/dL (8.4-10.2) Phosphorus 8.5 H mg/dL (2.5-4.5) Magnesium 2.1 mg/dL (1.6-2.3) Total Bilirubin 0.5 mg/dL (0.2-1.3) AST 620 H U/L (17-59) ALT 296 H U/L (6-50) Alkaline Phosphatase 84 U/L (38-126) Total Creatine Kinase > 76757 H U/L (55-170) Total Protein 5.3 L g/dL (6.3-8.2) Albumin 2.6 L g/dL (3.5-5.1) Random Vancomycin Blood Type Antibody Screen Patient hx anesthesia problems: none Family hx anesthesia problems: none Results Review: All pre-operative results and documents have been reviewed as part of the pre-operative evaluation. [facility] Past Medical History Medical History Obstructive sleep apnea Mention on prior history and physicals but patient is never been treated with CPAP Atrial fibrillation With history of synchronized cardioversion x2 Atypical atrial flutter Venous stasis dermatitis of both lower extremities Chronic anticoagulation Diabetic peripheral neuropathy Hyperlipidemia Nonischemic cardiomyopathy Body mass index (BMI) of 50-59.9 in adult (12/01/17) Chronic pain of both knees Diabetes Hypertension Surgical History Surgical History History of cardiac catheterization (2012) Normal coronary arteries at that time he was diagnosed with nonischemic cardiomyopathy History of bilateral hip replacements (~2004) Family History Family History Mother Healthy adult 90 years old Father , Age 86 Lymphoma Atrial fibrillation Sibling , 68 Cancer Social History Social History Social History: Patient is single the never been . He does not have any children. The patient is a former smoker he smoked 1 pack of cigarettes per day for about 10 years but quit smoking in the 1980s. He denies significant alcohol use. 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 Code status: Full code (although he would not want long-term ventilation, tracheostomy or feeding tube) Surrogate decision maker: Gisel Remy (sister) Smoking packs per day: 1 Smoking cigarettes per day: 20.0 Years smoked: 15 Smoking pack-years: 15.00 Smoking status: Former smoker Tobacco type: cigarettes Alcohol intake: former Substance use: never Lack of Transportation: No Lack of Food: Never True Current Housing: I Have Housing Concerned About Future Housing: No Difficulty Paying Gas/Electric Bills: No Difficulty Paying for Meds: No Currently Unemployed: No Education: High School Diploma/GED Difficulty w/ Childcare or Family Care: No Spiritual care concerns: No Anes - Eval Final PreProcedure Day of Procedure 07/19/25 11:49 Patient weight: super morbidly obese Heart: regular rate and rhythm Lungs: decreased breath sounds Airway: Mallampati scale class III Neurological: alert and oriented Last oral intake: >/= 8 hours ASA classification: IV Emergent: no Anesthetic plan: proceed Anesthesia type and monitoring: general GIVS and standard monitoring Results Review: All pre-operative results and documents have been reviewed as part of the pre-operative evaluation. Informed Consent: The patient's anesthetic plan and its attendant risks and benefits were discussed with the patient/family/POA. Questions were solicited and answers provided to the satisfaction of the patient/family/POA.
--- NOTE | 2025-07-19 11:54 | WPDHPUPDATE1 ---
History and Physical Update Update Date/Time: 07/19/25 11:54 History and Physical has been reviewed, including an updated exam of the patient. There are NO changes in the patient's condition. Risks, benefits, and alternatives have been discussed and questions answered. Patient agrees to proceed with procedure.
[2025-07-19] MEDS: ceFAZolin 3 GM/D5W 100 ML 100 ML IVPB (12:01)
[2025-07-19] MEDS: LIDO 1%/EPINEPHRINE 1:100,000 50 ML VIAL 15 ML INFILTRATE (12:37)
[2025-07-19] MEDS: HEPARIN SODIUM, PORCINE 10,000 UNITS/10 ML VIAL 3000 UNITS IV PUSH (12:40)
--- NOTE | 2025-07-19 12:41 | PCNFU ---
Nutrition Follow-Up Complete: Increased protein energy needs related to pressure injuries as evidenced by skin breakdown Goal:Adequate PO intake to support wound healing Pt current nutrition is Low K+/Diabetic diet, TACOS BID, NPO today for dialysis catheter placment. Nutrition recommendation: Resume previous diet orders and supplements, add Nepro shakes BID Last recorded weight is 187.7 kg. Bowel Motility: +BM 07/18 Labs Reviewed:Hgb:9.6, HCT:29.3, NA:125, BUN:80, Cr:4.8, Glu:124, A1C:6.3% Meds Noted: novolog Skin:Multiple pressure wounds Additional Notes: Pt NPO today for dialysis catheter placement, was on a low K+ diet / Diabetic with 50-100% intake. Recommend to add Nepro shakes BID for supplement, resume TACOS BID, and resume Renal diabetic diet post procedure Monitoring intakes, weights, labs, skin, meds, supplement tolerance, plan of care Follow up in 5 days
--- NOTE | 2025-07-19 13:32 | W.PM.PROC2 ---
Procedure Note - Detailed Date of Procedure 07/19/25 Pre-op Diagnosis Acute kidney injury, rhabdomyolysis, inadequate venous access Post-op Diagnosis Same Procedure Performed placement right internal jugular tunneled dura flow central venous catheter under fluoroscopy Surgeon Chris Keenan MD [employer] Room Attendant Skye Barrera [facility] Anesthesia General ( LMA) and Local Indications patient had temporary dialysis catheter placed 3 days ago for KAITLIN, rhabdomyolysis, hyperkalemia. I was asked to place a tunneled central venous catheter for dialysis. Patient is taken to surgery now for that purpose Findings none significant, postprocedure chest x-ray by my review shows catheter tip in the distal SVC, right atrial junction Description of Procedure patient was taken to the operating room and placed in a supine position. The back was elevated with a rolled towel under the spine. His head was turned slightly to the left. Anesthesia was introduced. We removed the dressings from the previous, non tunneled, central venous catheter. The entire right neck and right upper chest were prepped and draped. C-arm fluoroscopy was brought into the field. I passed the guidewire through the blue port and, under fluoroscopy, it passed into the inferior vena cava without difficulty. I then cut the sutures and removed the previously placed central venous catheter leaving the guidewire in place. Pressure was held on the entrance site to the central venous catheter until the bleeding had stopped. I then used Betadine on the guidewire to ensure sterility. I then removed my outer gloves and placed a new pair of outer gloves. We used fluoroscopy and a 36 cm dura flow catheter. I mapped out the position of the catheter such that the tip ended in the distal SVC or right atrium. Counter incisions were marked on the chest and neck. Local anesthetic was infiltrated where the counter incisions were planned. Incisions were made and the exit site of the guidewire was also enlarged. I then used the tunnel order and and tunneled the dura flow catheter from the lower most insert vision up such that it exited out the same site as the guidewire. I checked our position with fluoroscopy and it looked good. I then passed serial dilators over the guidewire, under fluoroscopy, without difficulty. I then used the dilator with sleeve and passed that over the guidewire, again under fluoroscopy. I removed the dilator and the guidewire and held pressure over the sleeve. I then passed the end of the dura flow catheter into the sleeve and down into the vena cava. I then looked again with fluoroscopy and thought that the position looked good. In fact, it was in a little too far and so I backed the catheter out about 1/2 inch. This looked better under fluoroscopy. I then removed the sleeve. I checked again the position of the catheter. I adjusted it slightly again. On recheck this time it looked quite good. The curve in the catheter showed no evidence of kinks. I then aspirated and irrigated each port with heparin several times. Aspiration of blood and flushing with irrigation was easily accomplished with little resistance. Each port then received a final flush. Each port was clamped off and a cap was placed. I then closed the counter incisions with subcuticular 4-0 Monocryl skin suture. Additional local was infiltrated under the flange. 3-0 nylon was then used to suture the flange to the skin. The counter incisions were dressed with Exofin surgical adhesive. The exit site of the dura flow catheter was dressed with Tegaderm. Patient was then awakened taken to recovery in good condition. Counts were correct x2. Estimated Blood Loss -20 Urine Output 150 Drains No Packing No Pathology None sent Complications None Condition Stable Disposition PACU [facility] Billing Surgery - Charge Forward: Surgery Billing ( Placement right internal jugular tunneled dura flow central venous catheter under fluoroscopy)
--- NOTE | 2025-07-19 13:50 | PCOTNOTE ---
Patient out od the room at this time. Patient went down for a tunnel catheter placement, check back tomorrow.
[2025-07-19] MEDS: oxyCODONE HCL (*CRX) 5 MG TAB IR PO (14:41)
[2025-07-19] MEDS: AMIODARONE HCL 200 MG TABLET PO (14:44)
[2025-07-19] MEDS: cefTRIAXone 1 GM in SODIUM CHLORIDE 0.9% IV 50 ML IVPB (14:44)
[2025-07-19] MEDS: LIDOCAINE 1% PF INJ 5 ML VIAL INFILTRATE (16:25)
--- NOTE | 2025-07-19 17:03 | P.PNIM_ITS ---
Progress Note: A&P Assessment and Plan (1) Rhabdomyolysis: Qualifiers: Rhabdomyolysis type: non-traumatic Qualified Code(s): M62.82 - Rhabdomyolysis Code(s): M62.82 - Rhabdomyolysis Status: Acute Assessment and Plan: due to prolonged time down s/p 3L IV fluids in the ER s/p IV fluids CK > 16k on admission and this AM patient now receiving hemodialysis Nephrology following trend CK levels still elevated- monitor continue dialysis per Nephrology ck >[id number] (2) Acute kidney injury: Code(s): N17.9 - Acute kidney failure, unspecified Status: Acute Assessment and Plan: due to acute rhabdomyolysis BUN 76 and Cr 3.08 on AM labs Nephrology following s/p temporary line placement by surgery team on hemodialysis, 2nd session planned for today daily labs ct/bun 4.82/80 today (3) Acute hyperkalemia: Code(s): E87.5 - Hyperkalemia Status: Acute Assessment and Plan: K 6.6 on arrival, Patient received sodium bicarb, calcium, Lokelma, insulin and dextrose in the ER and again overnight in the IMU Telemetry despite medical management patient's potassium level was not improving Nephrology was consulted and now following continue dialysis K 5.0 today (4) Sepsis: Qualifiers: Acute renal failure type: unspecified Sepsis acute organ dysfunction status: with acute organ dysfunction Sepsis type: sepsis due to unspecified organism Severe sepsis acute organ dysfunction type: acute renal failure Severe sepsis shock status: without septic shock Qualified Code(s): A41.9 - Sepsis, unspecified organism; R65.20 - Severe sepsis without septic shock; N17.9 - Acute kidney failure, unspecified Code(s): A41.9 - Sepsis, unspecified organism Status: Acute Assessment and Plan: Patient meets sepsis criteria with tachycardia, tachypnea and leukocytosis. Exact source of infection is not known. Leukocytosis could be due to leukemoid reaction verses acute infection. He urine does not appear to be acutely infected. He does have open wounds but they do not have any obvious surrounding erythema to suggest acute infection. Symptoms could simply be due to combination of volume depletion and respiratory alkalosis. Patient recieved cefepime and vancomycin while in the ED change to IV rocephin for possible UTI f/u blood cultures patients scrotal wound reassed and there is significant surrounding erythema, will add IV vancomycin for broader coverage AM labs CT Chest ordered follow up (5) Type 2 diabetes mellitus with hyperglycemia, without long-term current use of insulin: Code(s): E11.65 - Type 2 diabetes mellitus with hyperglycemia Status: Acute Assessment and Plan: accu checks avoid hypoglycemia SSI while inpatient (6) Lactic acidosis: Code(s): E87.20 - Acidosis, unspecified Status: Acute Assessment and Plan: most likely due to rhabdomyolysis or possible sepsis Improving repeat level WNL improved-resolved (7) Chronic anticoagulation: Code(s): Z79.01 - 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 Status: Acute Assessment and Plan: continue home Xarelto (8) Transaminitis: Code(s): R74.01 - Elevation of levels of liver transaminase levels Status: Acute Assessment and Plan: most likely due to rhabdomyolysis or possible sepsis hold home statin improving AST 620, ALT 296 (9) Leukocytosis: Qualifiers: Leukocytosis type: unspecified Qualified Code(s): D72.829 - Elevated white blood cell count, unspecified Code(s): D72.829 - Elevated white blood cell count, unspecified Status: Acute Assessment and Plan: s/p IV vancomycin and cefepime f/u urine cultures f/u blood cultures continue IV rocephin, add IV vancomycin AM labs (10) Chronic hyponatremia: Code(s): E87.1 - Hypo-osmolality and hyponatremia Status: Acute Assessment and Plan: s/p IV fluids nephrology following dialysis monitor labs (11) Hematoma of right upper extremity: Code(s): S40.021A - Contusion of right upper arm, initial encounter Status: Acute Assessment and Plan: Monitor neuro checks pain control (12) Decubital ulcer: Qualifiers: Pressure injury location: unspecified location Pressure injury stage: unstageable Qualified Code(s): L89.95 - Pressure ulcer of unspecified site, unstageable Code(s): L89.90 - Pressure ulcer of unspecified site, unspecified stage Status: Acute Assessment and Plan: wound care consult (13) Nonischemic cardiomyopathy: Code(s): I42.8 - Other cardiomyopathies Status: Acute Assessment and Plan: hold home diuretics and ACEI due to KAITLIN and hyperkalemia monitor fluid volume status closely (14) Obstructive sleep apnea: Code(s): G47.33 - Obstructive sleep apnea (adult) (pediatric) Status: Acute Assessment and Plan: Patient may need CPAP therapy or supplemental oxygen but is currently maintaining O2 sats at this time. Will he would benefit from polysomnogram as outpatient to further delineate/treat his underlying obstructive sleep apnea. (15) Cellulitis of scrotum: Code(s): N49.2 - Inflammatory disorders of scrotum Status: Acute Assessment and Plan: continue with wound care recommendations: - conitnue antifungal powder - simmons keep area clean and dry Plan patient with wound to left side of scrotum with significant surrounding erythema wound care was consulted does appear to be infectid daily labs several looose stools- C diff is ordered OK to use FMS if needed Acute hypoxemic respiratory failure Given leukocytosis, and patient has 3 liters of fluid removed yesterday and still oxygen requirement worsened CT chest ordered ti rule out pneumonia titrate oxygen DVT prophylaxis on Xarelto Subjective Date/time seen: 07/19/25 17:03 Interval history: Comfortable at bedside Review of Systems Review of Systems: 12 systems were reviewed with pertinent positives and negatives per HPI. Except as documented in the HPI, all other systems were reviewed and are negative. Exam Narrative: Weight 188.6 kg BMI 53.4 Const: Other: Morbidly obese, acutely ill-appearing, disheveled HENMT: Other: Mucous membranes are dry, crowded posterior oropharynx, no oral pharyngeal erythema, head is normocephalic atraumatic Eyes: Other: Pupils are equal and reactive, no scleral icterus, no conjunctival pallor Neck: Other: Large neck circumference, no lymphadenopathy, trachea midline Resp: Other: clear to auscultation bilaterally, no increased work of breathing Cardio: Other: RRR, 2+ bilateral radial and pedal pulses, no murmur, no JVD GI: Other: Soft, nontender, obese, normoactive bowel sounds : Other: Uncircumcised male Simmons catheter present, erythematous moist rash bilateral inguinal folds and pannus folds, significant erythema to bilateral scrotum will with ulceration to the right scrotum with eschar (please see nursing documentati on for photos in measurements) Urinary Catheter: Urinary Catheter: patent and draining Skin: Other: Candidiasis noted to pannus folds and bilateral inguinal folds, right buttock erythema that is blanchable and extend extending down into the posterior upper thigh with associated skin shearing, and as a ulcer of the left elbow with overlying eschar unable to stage, right scrotal wound Neuro: Other: Alert oriented to person place and time, speech is clear, no facial asymmetry, no localizing neurologic deficits noted the generalized weakness of the extremities, sensation is intact, patient reports hallucinations Extrem: Other: No cyanosis, marked bruising to the right medial humerus down into the ventral forearm, 4/5 face and fill packer strength bilateral, 2/5 straight leg strength on the left leg, 1 out of 5 strength on the right leg. pitting edema present to bilateral upper extremities Psych: Other: Appropriate mood and affect, pleasant and cooperative, fair judgment and insight, visual hallucinations reported prior to arrival to the ER patient is not hallucinating currently Objective Data Vital Signs Vital Signs: Vital Signs - 24 hr 07/18/25 18:00 07/18/25 18:16 07/18/25 19:40 Temperature 97.4 F L Pulse Rate 1 L 81 74 Respiratory Rate 21 H Blood Pressure 113/44 L Pulse Oximetry 95 Oxygen Delivery Oxygen Flow Rate 07/18/25 20:00 07/18/25 22:00 07/18/25 23:33 Temperature Pulse Rate 75 72 70 Respiratory Rate 24 H Blood Pressure Pulse Oximetry Oxygen Delivery Oxygen Flow Rate 07/18/25 23:33 07/18/25 23:39 07/18/25 23:43 Temperature 97.8 F Pulse Rate 70 71 73 Respiratory Rate 22 H 23 H Blood Pressure 114/47 L Pulse Oximetry 95 94 Oxygen Delivery Nasal Cannula Oxygen Flow Rate 1 07/19/25 00:00 07/19/25 02:00 07/19/25 04:00 Temperature 97.9 F Pulse Rate 79 74 72 Respiratory Rate 21 H Blood Pressure 120/59 L Pulse Oximetry 93 Oxygen Delivery Oxygen Flow Rate 07/19/25 04:00 07/19/25 06:00 07/19/25 07:35 Temperature 98.1 F Pulse Rate 72 72 75 Respiratory Rate 24 H Blood Pressure 121/56 L Pulse Oximetry 95 Oxygen Delivery Oxygen Flow Rate 07/19/25 08:00 07/19/25 08:01 07/19/25 11:28 Temperature 98.0 F Pulse Rate 79 76 Respiratory Rate 20 Blood Pressure 137/59 L Pulse Oximetry 96 Oxygen Delivery Nasal Cannula Nasal Cannula Oxygen Flow Rate 1 2 07/19/25 13:12 07/19/25 13:25 07/19/25 13:40 Temperature 98.3 F Pulse Rate 76 75 75 Respiratory Rate 16 20 24 H Blood Pressure 130/63 128/60 125/56 L Pulse Oximetry 97 99 93 Oxygen Delivery Simple Face Mask Simple Face Mask Nasal Cannula Oxygen Flow Rate 8 8 2 07/19/25 13:55 07/19/25 14:10 07/19/25 14:13 Temperature 98.1 F Pulse Rate 74 73 75 Respiratory Rate 16 22 H 28 H Blood Pressure 118/61 111/68 120/52 L Pulse Oximetry 94 93 95 Oxygen Delivery Nasal Cannula Nasal Cannula Oxygen Flow Rate 2 2 07/19/25 14:44 07/19/25 15:56 Temperature 98.3 F Pulse Rate 64 76 Respiratory Rate 20 Blood Pressure 121/48 L Pulse Oximetry 95 Oxygen Delivery Oxygen Flow Rate Intake/Output Intake/Output: Intake & Output 07/16/25 07/17/25 07/18/25 07/19/25 23:59 23:59 23:59 23:59 Intake Total 2570 970 3580 451 Output Total 2201 120 3250 300 Balance 369 850 330 151 Meds/Results Medications: Active Medications Generic Name Dose Route Start Last Admin Trade Name Freq PRN Reason Stop Dose Admin Acetaminophen 1,000 mg 07/16/25 09:58 07/18/25 16:13 Acetaminophen 500 Mg Tablet PO 1,000 mg Q6H PRN Administration Fever Acetaminophen 500 mg 07/19/25 14:13 Acetaminophen 500 Mg Tablet PO Q6H PRN Pain Rated 1-3 Albuterol/Ipratropium 3 ml 07/17/25 20:40 07/18/25 23:32 Ipratropium 0.5 Mg/Albuterol Sulfate 2.5 Mg Ampul.Neb 3 Ml INHALATION 3 ml Q6HRT PRN Administration wheezing Amiodarone HCl 200 mg 07/15/25 02:30 07/19/25 14:44 Amiodarone Hcl 200 Mg Tablet PO 200 mg DAILY SALMA Administration Carvedilol 12.5 mg 07/15/25 09:00 07/19/25 14:40 Carvedilol 12.5 Mg Tablet PO Not Given BID SALMA Dextrose 12.5 gm 07/15/25 01:20 Dextrose 50% 25 Gm/50 Ml Syringe IV PUSH PRN PRN Hypoglycemia Protocol Epoetin Sd-epbx 10,000 units 07/18/25 09:00 07/18/25 11:16 Epoetin Sd-Epbx 10,000 Units/Ml Vial IV PUSH 10,000 units MOWEFR@09 SALMA Administration Glucagon 1 mg 07/15/25 01:20 Glucagon For Inj 1 Mg Vial IM PRN PRN Hypoglycemia Protocol Glucose 15 gm 07/15/25 01:20 Glucose Oral Gel 15 Gm Of Glucse In 37.5 Gm Tube PO PRN PRN Hypoglycemia Protocol Hydromorphone HCl 1 mg 07/19/25 14:13 Hydromorphone Hcl Inj (*Crx) 1 Mg/Ml Syr IV PUSH Q2H PRN Breakthrough Pain Rated 7-10 or NPO Hydromorphone HCl 0.5 mg 07/19/25 14:13 Hydromorphone Hcl Inj (*Crx) 1 Mg/Ml Syr IV PUSH Q2H PRN Breakthrough Pain Rated 4-6 or NPO Dextrose 1,000 mls @ 100 mls/hr 07/15/25 01:20 Dextrose 5% 1,000 Ml IVPB PRN PRN Hypoglycemia Protocol Ceftriaxone Sodium 1 gm/ 50 mls @ 100 mls/hr 07/15/25 11:45 07/19/25 14:44 Sodium Chloride IVPB 50 mls/hr DAILY SALMA Administration Albumin Human 50 mls @ 999 mls/hr 07/15/25 15:32 Albutein IVPB 08/14/25 15:31 Q10M PRN HYPOTENSION Insulin Aspart 3 - 6 units 07/15/25 08:00 07/19/25 13:16 Insulin Aspart (*Bkc) 100 Units/Ml SUB-Q Not Given TIDWM SALMA Protocol Insulin Aspart 1 - 3 units 07/15/25 21:00 07/19/25 00:06 Insulin Aspart (*Bkc) 100 Units/Ml SUB-Q Not Given HS [facility] Protocol Magnesium Hydroxide 30 ml 07/16/25 08:39 Magnesium Hydroxide Susp 30 Ml Udc PO DAILY PRN Constipation Naloxone HCl 0.1 mg 07/19/25 14:13 Naloxone Hcl 0.4 Mg/Ml Vial IV PUSH Q2M PRN Opiate Reversal Oxycodone HCl 2.5 mg 07/19/25 14:13 Oxycodone Hcl (*Crx) 2.5 Mg Tab Ir PO Q4H PRN Pain Rated 4-6 Oxycodone HCl 5 mg 07/19/25 14:13 07/19/25 14:41 Oxycodone Hcl (*Crx) 5 Mg Tab Ir PO 5 mg Q4H PRN Administration Pain Rated 7-10 Polyethylene Glycol 17 gm 07/16/25 09:00 07/19/25 14:43 Polyethylene Glycol 3350 17 Gm Powd.Pack PO Not [facility] Rivaroxaban 20 mg 07/15/25 17:00 07/17/25 16:55 Rivaroxaban 20 Mg Tablet PO 20 mg On Hold: 07/18/25 10:26 DAILY@1700 [facility] Administration Sodium Zirconium Cyclosilicate 10 gm 07/15/25 10:00 07/15/25 17:26 Sodium Zirconium Cyclosilicate 10 Gm Powd.Pack PO Not Given On Hold: 07/15/25 15:36 TID@1000,1500,2200 [facility] Vancomycin HCl 1 each 07/16/25 10:24 Vancomycin For Hemodialysis IVPB PRN PRN Vancomycin Protocol Radiology Results: ITS Impressions Cervical Spine CT 07/15/25 07:00 IMPRESSION: 1. No acute abnormality of the cervical spine. 2: Severe cervical spondylosis. Head CT 07/15/25 07:03 IMPRESSION: 1. No acute intracranial abnormality. Shoulder X-Ray 07/15/25 07:39 Impression: 1: No acute fracture. Wrist X-Ray 07/15/25 07:40 Impression: 1: No acute fracture. Elbow X-Ray 07/15/25 07:41 Impression: 1: No acute fracture. Renal Ultrasound 07/15/25 13:09 Impression: 1: Unremarkable renal ultrasound. No stones, masses or hydronephrosis. Chest X-Ray 07/19/25 13:43 Impression: 1: Cardiomegaly with mild interstitial edema. Central Venous Line 07/19/25 13:50 IMPRESSION: Fluoroscopy used during portacatheter placement. Labs Labs: Laboratory Results - last 24 hr 07/18/25 07/19/25 07/19/25 19:49 05:10 07:10 WBC 14.2 H 16.0 H RBC 2.14 L 3.05 L Hgb 6.8 L* 9.5 L Hct 22.2 L 29.7 L MCV 103.7 H D 97.4 D MCH 31.8 31.1 MCHC 30.6 L 32.0 RDW 14.1 14.1 Plt Count 131 L 199 D MPV 11.1 H 10.7 H Immature Gran % (Auto) 2.8 H 3.2 H Neut % (Auto) 76.0 H 77.0 H Lymph % (Auto) 7.1 L 6.4 L [place] % (Auto) 11.6 H 10.8 H Eos % (Auto) 2.3 2.4 Baso % (Auto) 0.2 0.2 Lymph # (Auto) 1.00 1.03 [place] # (Auto) 1.6 H 1.7 H Eos # (Auto) 0.3 0.4 H Baso # (Auto) 0.0 0.0 Abs Immat Gran (auto) 0.40 H 0.51 H Absolute Neuts (auto) 10.8 H 12.4 H Absolute Nucleated RBC 0.000 0.020 H Nucleated RBC % 0.0 0.1 Sodium Potassium Chloride Carbon Dioxide Anion Gap BUN Creatinine Estim Creat Clear Calc Estimated GFR Glucose POC Capillary Glucose 166 H 119 H Calcium Phosphorus Magnesium Total Bilirubin AST ALT Alkaline Phosphatase Total Creatine Kinase Total Protein Albumin Random Vancomycin 17.0 07/19/25 07/19/25 07/19/25 07:21 11:23 13:41 WBC RBC Hgb 9.6 L Hct 29.8 L MCV MCH MCHC RDW Plt Count MPV Immature Gran % (Auto) Neut % (Auto) Lymph % (Auto) [place] % (Auto) Eos % (Auto) Baso % (Auto) Lymph # (Auto) [place] # (Auto) Eos # (Auto) Baso # (Auto) Abs Immat Gran (auto) Absolute Neuts (auto) Absolute Nucleated RBC Nucleated RBC % Sodium 125 L Potassium 5.0 Chloride 92 L Carbon Dioxide 26 Anion Gap 7 BUN 80 H D Creatinine 4.82 H Estim Creat Clear Calc 23 Estimated GFR 12 L Glucose 124 H POC Capillary Glucose 127 H 131 H Calcium 6.5 L Phosphorus 8.5 H Magnesium 2.1 Total Bilirubin 0.5 AST 620 H ALT 296 H Alkaline Phosphatase 84 Total Creatine Kinase > 63685 H Total Protein 5.3 L Albumin 2.6 L Random Vancomycin 07/19/25 15:49 WBC RBC Hgb Hct MCV MCH MCHC RDW Plt Count MPV Immature Gran % (Auto) Neut % (Auto) Lymph % (Auto) [place] % (Auto) Eos % (Auto) Baso % (Auto) Lymph # (Auto) [place] # (Auto) Eos # (Auto) Baso # (Auto) Abs Immat Gran (auto) Absolute Neuts (auto) Absolute Nucleated RBC Nucleated RBC % Sodium Potassium Chloride Carbon Dioxide Anion Gap BUN Creatinine Estim Creat Clear Calc Estimated GFR Glucose POC Capillary Glucose 190 H Calcium Phosphorus Magnesium Total Bilirubin AST ALT Alkaline Phosphatase Total Creatine Kinase Total Protein Albumin Random Vancomycin Quality VTE Prophylaxis VTE prophylaxis: pharmacologic ordered (Continue home Xarelto)
[2025-07-19 19:27] LABS: MRSA (PCR) NOT DETECTED (NOT DETECTE)
[2025-07-19] MEDS: CENTRAL LINE FLUSH 10 ML IV PUSH (23:32)
[2025-07-20] VITALS (36 sets, daily range): BP systolic 108–142; BP diastolic 53–87; PULSE 56–87; RESP 16–22; TEMP 36–37; O2SAT 93–97
[2025-07-20] MEDS: IPRATROPIUM 0.5 MG/ALBUTEROL SULFATE 2.5 MG AMPUL.NEB 3 ML INHALATION (00:58)
[2025-07-20] MEDS: CENTRAL LINE FLUSH 10 ML IV PUSH ×3 (06:12→22:47)
[2025-07-20 06:25] LABS: Hematocrit 29.4 % (42.0-52.0); Hemoglobin 9.3 g/dL (14.0-18.0); Immature Granulocyte Percent A 4.7 % (0-0.5); Lymphocytes Absolute Auto 0.95 K/mm3 (0.9-3.2); Mean Corpuscular HGB Conc 31.6 g/dl (32-36); Mean Corpuscular Hemoglobin 31.1 pg (26-34); Mean Corpuscular Volume 98.3 fl (80-100); Nucleated Red Blood Cells Absolute Auto 0.000 K/mm3 (0.0-0.012); Nucleated Red Blood Cells Perc 0.0 % (0.0-0.2); Platelet Count Result 203 k/mm3 (150-375); Red Blood Count 2.99 M/mm3 (4.6-6.20); White Blood Count 17.1 K/mm3 (4.5-10.0)
[2025-07-20 07:01] LABS: Alanine Aminotransferase 211 U/L (6-50); Albumin Level 2.6 g/dL (3.5-5.1); Alkaline Phosphatase 80 U/L (38-126); Anion Gap 11 mmol/L (4-12); Aspartate Amino Transferase 464 U/L (17-59); Bilirubin,Total 0.5 mg/dL (0.2-1.3); Blood Urea Nitrogen 100 mg/dL (9-20); Calcium 6.4 mg/dL (8.4-10.2); Carbon Dioxide 23 mmol/L (22-30); Chloride 90 mmol/L (98-107); Estimated CRCL calculation 19 ml/min; Estimated Glomerular Filt Rate 9; Glucose 126 mg/dL (65-110); Magnesium 2.2 mg/dL (1.6-2.3); Potassium 5.5 mmol/L (3.4-5.0); Sodium 124 mmol/L (137-145); Total Protein 5.4 g/dL (6.3-8.2)
[2025-07-20 08:06] LABS: Creatine Kinase > 16000 U/L (55-170)
[2025-07-20] MEDS: oxyCODONE HCL (*CRX) 2.5 MG TAB IR PO (08:46)
--- NOTE | 2025-07-20 10:29 | PCOTNOTE ---
The patient treatment was not able to be completed pt out of the room for HD. Will plan to continue treatment per plan of care.
--- NOTE | 2025-07-20 10:30 | WPDIDCN ---
Assessment and Plan Assessment and plan (1) Leukocytosis: Qualifiers: Leukocytosis type: unspecified Qualified Code(s): D72.829 - Elevated white blood cell count, unspecified Code(s): D72.829 - Elevated white blood cell count, unspecified Status: Acute (2) Cellulitis of scrotum: Code(s): N49.2 - Inflammatory disorders of scrotum Status: Acute (3) Hematoma of right upper extremity: Code(s): S40.021A - Contusion of right upper arm, initial encounter Status: Acute (4) Anemia: Code(s): D64.9 - Anemia, unspecified Status: Acute (5) Rhabdomyolysis: Qualifiers: Rhabdomyolysis type: non-traumatic Qualified Code(s): M62.82 - Rhabdomyolysis Code(s): M62.82 - Rhabdomyolysis Status: Acute (6) Acute kidney injury: Code(s): N17.9 - Acute kidney failure, unspecified Status: Acute (7) Transaminitis: Code(s): R74.01 - Elevation of levels of liver transaminase levels Status: Acute (8) Chronic hyponatremia: Code(s): E87.1 - Hypo-osmolality and hyponatremia Status: Acute (9) Hyperkalemia: Code(s): E87.5 - Hyperkalemia Status: Acute Plan # Improved but persistent leukocytosis after admission for immobility-associated rhabdomyolysis and KAITLIN with acute renal failure. -- possibly associated with infectious etiology and would consider ongoing scrotal inflammation / cellulitis / abscess/ severe tinea cruris. However, does not clinically appear to be progressive or associated with Tamera's gangrene. -- possibly associated with right arm hematoma, either sterile or secondarily infected. However, no ballotable collection of fluid around the elbow and arm appears to be with generalized swelling. -- acute anemia with hemoglobin dropped to 6.8 likely contributing to a leukemoid reaction. Acute anemia likely multifactorial and secondary to rehydration and arm hematoma but may need to rule out GI blood loss. -- continued leukemoid triggers such as persistent CPK elevation in the setting of acute rhabdomyolysis. -- rule out adrenal insufficiency given hyponatremia and hyperkalemia although the latter likely associated with KAITLIN. -- no evidence of pneumonia or urinary tract infection. Blood cultures have been negative to date. Plan: -- aerobic and anaerobic cultures with Gram stain ordered for scrotal wound purulent drainage. -- consider ultrasound or CT of scrotum to rule out abscess formation. -- consider ultrasound or CT of right arm hematoma to determine extent of process and, if significant, consider hematoma aspiration for Gram stain and culture. Would also considered venous Doppler study of right upper extremity to rule out DVT formation -- patient size may preclude CT scans. -- a.m. cortisol level. -- patient is MRSA screen negative and although this does not rule out potential MRSA infection recommend discontinuing vancomycin and changing ceftriaxone to Zosyn 2.25 g q.8 hours to provide broadened Gram-negative and additional anaerobic coverage in addition to continued streptococcal coverage. -- continue miconazole powder to scrotum. -- further recommendations to follow. Thank for the consult Patient was seen via video telehealth consultation with the assistance of staff. Chart, data, and patient independently reviewed. Patient was located at [facility] while I was located in my [place] office. Received verbal consent from patient. HPI Data of Consult Date/Time: 07/20/25 10:30 Requesting Physician: Mary Lemos DO Primary Care Provider: Juan Pablo Silver MD Consult Narrative Reason for consult: Persistent leukocytosis Narrative: Joe Henriquez is a 69 year old [id number] gentleman with morbid obesity, diastolic heart failure, paroxysmal atrial fibrillation on anticoagulation, diabetes with peripheral neuropathy, obstructive sleep apnea, stasis dermatitis of bilateral lower extremities, and hyperlipidemia. Presented to the ED 07/14/2025 after being found down at home and noted to have right upper extremity bruising/wound with hematoma, concentrated urine with KAITLIN and acute renal failure, hyperglycemia, and scrotal inflammation with scrotal wound. Found to have rhabdomyolysis secondary to immobility and pressure with associated acute kidney injury and acute renal failure, transaminitis with hyperbilirubinemia presumed secondary to rhabdomyolysis, right upper extremity bruising/ wound with hematoma, and scrotal inflammation with wound. There was concern for sepsis with tachycardia, tachypnea, hypotension, and leukocytosis ( 26.2). No evidence of UTI or pneumonia. He was empirically placed on ceftriaxone and vancomycin. Since admission he has had improvement in tachycardia, hypotension, and leukocytosis although the latter does remain elevated. transaminitis has improved And hepatitis-B serology unremarkable. He has required dialysis catheter placement for temporary hemodialysis. His hemoglobin, which ranged between 13 and 14 in 2021, and was noted to be 15.3 on presentation in a hypovolemic state, dropped down to 6.8 yesterday. Additionally, he has remained with hyponatremia and hyperkalemia. CPK remains elevated at greater than 1600 . Infectious disease consult requested for persistent leukocytosis despite current antibiotics and concern for ongoing occult infection With continued inflammation to scrotum. Review of Systems Review of Systems: Notes some shortness of breath with intermittent cough. Discomfort to right elbow with dressing changes. No scrotal pain. All systems reviewed & are unremarkable except as noted in HPI and below PMFSH Past Medical History Medical History Obstructive sleep apnea Mention on prior history and physicals but patient is never been treated with CPAP Atrial fibrillation With history of synchronized cardioversion x2 Atypical atrial flutter Venous stasis dermatitis of both lower extremities Chronic anticoagulation Diabetic peripheral neuropathy Hyperlipidemia Nonischemic cardiomyopathy Body mass index (BMI) of 50-59.9 in adult (12/01/17) Chronic pain of both knees Diabetes Hypertension Surgical History Surgical History History of cardiac catheterization (2012) Normal coronary arteries at that time he was diagnosed with nonischemic cardiomyopathy History of bilateral hip replacements (~2004) Family History Family History Mother Healthy adult 90 years old Father , Age 86 Lymphoma Atrial fibrillation Sibling , 68 Cancer Social History Social History Social History: Patient is single the never been . He does not have any children. The patient is a former smoker he smoked 1 pack of cigarettes per day for about 10 years but quit smoking in the 1980s. He denies significant alcohol use. 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 Code status: Full code (although he would not want long-term ventilation, tracheostomy or feeding tube) Surrogate decision maker: Gisel Remy (sister) Smoking packs per day: 1 Smoking cigarettes per day: 20.0 Years smoked: 15 Smoking pack-years: 15.00 Smoking status: Former smoker Tobacco type: cigarettes Alcohol intake: former Substance use: never Lack of Transportation: No Lack of Food: Never True Current Housing: I Have Housing Concerned About Future Housing: No Difficulty Paying Gas/Electric Bills: No Difficulty Paying for Meds: No Currently Unemployed: No Education: High School Diploma/GED Difficulty w/ Childcare or Family Care: No Spiritual care concerns: No Meds Home Medications and Allergies Home Medications ?Medication ?Instructions ?Recorded ?Confirmed ?Type furosemide 20 mg tablet 20 mg PO DAILY 10/28/22 07/15/25 History lisinopril 10 mg tablet 10 mg PO DAILY 10/28/22 07/15/25 History metformin 500 mg tablet 1,000 mg PO BID 10/28/22 07/15/25 History pravastatin 20 mg tablet 20 mg PO DAILY 10/28/22 07/15/25 History rivaroxaban 20 mg tablet (Xarelto) 20 mg PO HS 10/28/22 07/15/25 History spironolactone 25 mg tablet 25 mg PO EVERY OTHER DAY 10/28/22 07/15/25 History spironolactone 25 mg tablet 12.5 mg PO EVERY OTHER DAY 10/29/22 07/15/25 History carvedilol 25 mg tablet 12.5 mg (1/2 x 25 mg) PO BID #30 10/31/22 07/15/25 Rx tabs amiodarone 200 mg tablet (Pacerone) 200 mg PO Q24H 07/15/25 07/15/25 History blood sugar diagnostic (OneTouch 07/15/25 07/15/25 History Verio test strips) glipizide 10 mg tablet 10 mg PO DAILY 07/15/25 07/15/25 History Allergies Allergy/AdvReac Type Severity Reaction Status Date / Time No Known Allergies Allergy Unknown Verified 07/15/25 14:47 Vital Signs Vital Signs - 24 hr 07/19/25 11:28 07/19/25 13:12 07/19/25 13:25 Temperature 98.0 F 98.3 F Pulse Rate 76 76 75 Respiratory Rate 20 16 20 Blood Pressure 137/59 L 130/63 128/60 Pulse Oximetry 96 97 99 Oxygen Delivery Nasal Cannula Simple Face Mask Simple Face Mask Oxygen Flow Rate 2 8 8 07/19/25 13:40 07/19/25 13:55 07/19/25 14:10 Temperature Pulse Rate 75 74 73 Respiratory Rate 24 H 16 22 H Blood Pressure 125/56 L 118/61 111/68 Pulse Oximetry 93 94 93 Oxygen Delivery Nasal Cannula Nasal Cannula Nasal Cannula Oxygen Flow Rate 2 2 2 07/19/25 14:13 07/19/25 14:44 07/19/25 15:56 Temperature 98.1 F 98.3 F Pulse Rate 75 64 76 Respiratory Rate 28 H 20 Blood Pressure 120/52 L 121/48 L Pulse Oximetry 95 95 Oxygen Delivery Oxygen Flow Rate 07/19/25 16:00 07/19/25 19:45 07/19/25 19:58 Temperature 97.5 F L Pulse Rate 64 73 Respiratory Rate 20 Blood Pressure 117/58 L Pulse Oximetry 97 99 Oxygen Delivery Nasal Cannula Oxygen Flow Rate 1 07/19/25 20:00 07/19/25 22:00 07/19/25 23:25 Temperature 98.3 F Pulse Rate 59 L 63 64 Respiratory Rate 18 Blood Pressure 108/59 L Pulse Oximetry 96 Oxygen Delivery Oxygen Flow Rate 07/20/25 00:00 07/20/25 00:58 07/20/25 01:04 Temperature Pulse Rate 62 73 68 Respiratory Rate 22 H 22 H Blood Pressure Pulse Oximetry Oxygen Delivery Oxygen Flow Rate 07/20/25 02:00 07/20/25 03:58 07/20/25 04:00 Temperature 98.4 F Pulse Rate 74 74 56 L Respiratory Rate 18 Blood Pressure 125/66 Pulse Oximetry 93 Oxygen Delivery Oxygen Flow Rate 07/20/25 06:00 07/20/25 08:02 07/20/25 08:45 Temperature 97.4 F L 98.2 F Pulse Rate 62 74 70 Respiratory Rate 18 16 Blood Pressure 135/74 142/62 H Pulse Oximetry 94 94 Oxygen Delivery Oxygen Flow Rate 07/20/25 08:45 07/20/25 08:55 07/20/25 09:15 Temperature Pulse Rate 87 68 Respiratory Rate Blood Pressure 140/87 126/70 Pulse Oximetry Oxygen Delivery Oxygen Flow Rate 3 07/20/25 09:30 07/20/25 09:45 07/20/25 10:00 Temperature Pulse Rate 75 74 72 Respiratory Rate Blood Pressure 118/59 L 108/59 L 124/59 L Pulse Oximetry Oxygen Delivery Oxygen Flow Rate Exam Narrative: Awake, alert, appropriate, and interactive. Seen while undergoing hemodialysis. No distress. Patient is obese. No respiratory difficulty. Abdomen is protuberant with overhanging pannus. No panniculitis. Some scrotal swelling with improvement in overall erythema since admission; however, purulent drainage noted from skin breakdown site. Diffuse right upper extremity swelling. PICC or midline catheter present in right upper extremity. Areas of bruising /ecchymosis noted. No ballotable fluid collection apparent around elbow- -just diffuse arm swelling. No rash. Has chronic hyperkeratosis involving arms and legs. Results Labs 07/20/25 06:19 07/20/25 06:19 Labs: Short CBC 07/20/25 Range/Units 06:19 WBC 17.1 H (4.5-10.0) K/mm3 Hgb 9.3 L (14.0-18.0) g/dL Hct 29.4 L (42.0-52.0) % Plt Count 203 (150-375) k/mm3 BMP 07/20/25 06:19 Sodium 124 L Potassium 5.5 H Chloride 90 L Carbon Dioxide 23 BUN 100 H D Creatinine 6.07 H Glucose 126 H Calcium 6.4 L Cardiac Enzymes 07/20/25 Range/Units 06:19 Total Creatine Kinase > 14705 H (55-170) U/L Liver Function 07/20/25 Range/Units 06:19 Total Bilirubin 0.5 (0.2-1.3) mg/dL AST 464 H (17-59) U/L ALT 211 H (6-50) U/L Alkaline Phosphatase 80 (38-126) U/L Albumin 2.6 L (3.5-5.1) g/dL
[2025-07-20] MEDS: EPOETIN ALFA-EPBX 10,000 UNITS/ML VIAL 10000 UNITS IV PUSH ×2 (12:00→12:24)
--- NOTE | 2025-07-20 12:25 | P.PNNP_ITS ---
Progress Note: A&P Assessment and Plan (1) Acute kidney injury: Code(s): N17.9 - Acute kidney failure, unspecified Status: Acute Assessment and Plan: * as noted by admission labs * progressively worsening as noted by trend of labs since hospitalization began * was also complicated by persistent hyperkalemia unresponsive to medical therapy and declining UOP * baseline creatinine normal: * 1.16mg/dL in October 2024 (by outpatient labs by PCP) * 1.30mg/dL in October 2022 ([facility]) * multifactorial etiology: * rhabdomyolysis * LAURY-I use prior to admission * diuretic use (lasix + spironolactone) prior to admission * prerenal factors(?) * infection/early sepsis(?) * other(?) * still with poor urine output and noted intradialytic rise in BUN/creatinine/K+ * s/p tunneled HD catheter placement (on 07/19/25) * HD today * depending on AM labs, may consider another treatment tomorrow * follow trend of repeat labs and UOP for potential renal recovery (2) Hyperkalemia: Code(s): E87.5 - Hyperkalemia Status: Acute Assessment and Plan: * recurrent since admission * poor response to medical management despite multiple rounds of therapy to date * better control with dialysis * follow trend of repeat K+ levels (3) Rhabdomyolysis: Code(s): M62.82 - Rhabdomyolysis Status: Acute Assessment and Plan: * as noted by elevated CPK * likely related to prolonged downtime from fall * contributing to hyperkalemia and KAITLIN * CPK remains greater than 16,000 by serial testing... (4) Sepsis: Qualifiers: Acute renal failure type: unspecified Sepsis acute organ dysfunction status: with acute organ dysfunction Sepsis type: sepsis due to unspecified organism Severe sepsis acute organ dysfunction type: acute renal failure S evere sepsis shock status: without septic shock Qualified Code(s): A41.9 - Sepsis, unspecified organism; R65.20 - Severe sepsis without septic shock; N17.9 - Acute kidney failure, unspecified Code(s): A41.9 - Sepsis, unspecified organism Status: Acute Assessment and Plan: * suspected due to elevated WBC, lactic acidosis, tachycardia, tachypnea on admission * no clear source at this time * blood cultures negative from 07/14 * follow hemodynamics * on empiric antibiotics (5) Atrial fibrillation and flutter: Code(s): I48.91 - Unspecified atrial fibrillation; I48.92 - Unspecified atrial flutter Status: Chronic Assessment and Plan: * paroxysmal in nature * on amiodarone * on anticoagulation (6) Transaminitis: Code(s): R74.01 - Elevation of levels of liver transaminase levels Status: Acute Assessment and Plan: * presumably related to rhabdomyolysis * holding statin * continue follow trend of LFTs as surrogate for the rhabdo (because this CK is so high) * slow improvement noted (7) Hypertension: Code(s): I10 - Essential (primary) hypertension Status: Chronic Assessment and Plan: * reasonable control * follow trend of hemodynamics (8) Diabetes: Code(s): E11.9 - Type 2 diabetes mellitus without complications Status: Chronic Assessment and Plan: * follow accu-cheks * glycemic control per hospitalist Will continue to follow. L Subjective Date/time seen: 07/20/25 12:25 Interval history: Follow-up for acute kidney injury/acute renal failure and hyperkalemia. Tolerated tunneled HD catheter placement yesterday afternoon without any issues or problems; tolerating dialysis treatment at the time of my visit (seen on HD at 12:15pm); still not making much urine and noted rise in BUN, creatinine, and potassium from last dialysis treatment; LFTs down trending but CPK remains quite elevated. Exam 2 Narrative: General: elderly but large and WD/WN male in NAD Heart: normal S1 and S2; no rub Lungs: clear anteriorly; decreased at nases Abdomen: soft, nontender, nondistended, positive bowel sounds Extremities: no cyanosis or clubbing; trace - 1+ edema (upper and lower extremities) Skin: venous stasis changes over BLEs Objective Data Vital Signs Vital Signs: Vital Signs Temp Pulse Resp BP Pulse Ox O2 Del Method O2 Flow Rate 07/20/25 12:15 80 121/69 07/20/25 12:00 75 137/64 07/20/25 11:45 72 142/64 H 07/20/25 11:30 73 130/64 07/20/25 11:15 74 134/66 07/20/25 11:00 73 131/68 07/20/25 10:45 70 124/55 L 07/20/25 10:30 72 131/63 09/03/25 10:15 72 121/64 07/20/25 10:00 72 124/59 L 07/20/25 09:45 74 108/59 L 07/20/25 09:30 75 118/59 L 07/20/25 09:15 68 126/70 07/20/25 08:55 87 140/87 07/20/25 08:45 3 07/20/25 08:45 98.2 F 70 16 142/62 H 94 07/20/25 08:02 97.4 F L 74 18 135/74 94 07/20/25 06:00 62 07/20/25 04:00 56 L 07/20/25 03:58 98.4 F 74 18 125/66 93 07/20/25 02:00 74 07/20/25 01:04 68 22 H 07/20/25 00:58 73 22 H 07/20/25 00:00 62 07/19/25 23:25 98.3 F 64 18 108/59 L 96 07/19/25 22:00 63 07/19/25 20:00 59 L 07/19/25 19:58 97.5 F L 73 20 117/58 L 99 07/19/25 19:45 97 Nasal Cannula 1 Intake/Output Intake/Output: Intake & Output 07/17/25 07/18/25 07/19/25 07/20/25 23:59 23:59 23:59 23:59 Intake Total 970 3580 451 150 Output Total 120 3250 350 2050 Balance 850 330 101 -1900 Meds/Results Medications: Active Medications Generic Name Dose Route Start Last Admin Trade Name Igor PRN Reason Stop Dose Admin Acetaminophen 1,000 mg 07/16/25 09:58 07/18/25 16:13 Acetaminophen 500 Mg Tablet PO 1,000 mg Q6H PRN Administration Fever Acetaminophen 500 mg 07/19/25 14:13 Acetaminophen 500 Mg Tablet PO Q6H PRN Pain Rated 1-3 Albuterol/Ipratropium 3 ml 07/17/25 20:40 07/20/25 00:58 Ipratropium 0.5 Mg/Albuterol Sulfate 2.5 Mg Ampul.Neb 3 Ml INHALATION 3 ml Q6HRT PRN Administration wheezing Amiodarone HCl 200 mg 07/15/25 02:30 07/20/25 14:45 Amiodarone Hcl 200 Mg Tablet PO 200 mg DAILY SALMA Administration Carvedilol 12.5 mg 07/15/25 09:00 07/20/25 14:46 Carvedilol 12.5 Mg Tablet PO Not Given BID [facility] Dextrose 12.5 gm 07/15/25 01:20 Dextrose 50% 25 Gm/50 Ml Syringe IV PUSH PRN PRN Hypoglycemia Protocol Epoetin Sd-epbx 10,000 units 07/18/25 09:00 07/20/25 12:00 Epoetin Sd-Epbx 10,000 Units/Ml Vial IV PUSH 10,000 units MOWEFR@09 SALMA Administration Epoetin Sd-epbx 10,000 units 07/20/25 17:59 07/20/25 12:24 Epoetin Sd-Epbx 10,000 Units/Ml Vial IV PUSH 07/20/25 18:00 10,000 units ONCE ONE Administration Glucagon 1 mg 07/15/25 01:20 Glucagon For Inj 1 Mg Vial IM PRN PRN Hypoglycemia Protocol Glucose 15 gm 07/15/25 01:20 Glucose Oral Gel 15 Gm Of Glucse In 37.5 Gm Tube PO PRN PRN Hypoglycemia Protocol Hydromorphone HCl 1 mg 07/19/25 14:13 Hydromorphone Hcl Inj (*Crx) 1 Mg/Ml Syr IV PUSH Q2H PRN Breakthrough Pain Rated 7-10 or NPO Hydromorphone HCl 0.5 mg 07/19/25 14:13 Hydromorphone Hcl Inj (*Crx) 1 Mg/Ml Syr IV PUSH Q2H PRN Breakthrough Pain Rated 4-6 or NPO Dextrose 1,000 mls @ 100 mls/hr 07/15/25 01:20 Dextrose 5% 1,000 Ml IVPB PRN PRN Hypoglycemia Protocol Albumin Human 50 mls @ 999 mls/hr 07/15/25 15:32 Albutein IVPB 08/14/25 15:31 Q10M PRN HYPOTENSION Piperacillin Sod/Tazobactam 50 mls @ 100 mls/hr 07/20/25 14:00 07/20/25 14:45 Sod 2.25 gm/ Sodium Chloride IVPB 100 mls/hr Q8H SALMA Administration Insulin Aspart 3 - 6 units 07/15/25 08:00 07/20/25 13:54 Insulin Aspart (*Bkc) 100 Units/Ml SUB-Q Not Given TIDWM [facility] Protocol Insulin Aspart 1 - 3 units 07/15/25 21:00 07/19/25 21:34 Insulin Aspart (*Bkc) 100 Units/Ml SUB-Q Not Given HS [facility] Protocol Magnesium Hydroxide 30 ml 07/16/25 08:39 Magnesium Hydroxide Susp 30 Ml Udc PO DAILY PRN Constipation Naloxone HCl 0.1 mg 07/19/25 14:13 Naloxone Hcl 0.4 Mg/Ml Vial IV PUSH Q2M PRN Opiate Reversal Oxycodone HCl 2.5 mg 07/19/25 14:13 07/20/25 08:46 Oxycodone Hcl (*Crx) 2.5 Mg Tab Ir PO 2.5 mg Q4H PRN Administration Pain Rated 4-6 Oxycodone HCl 5 mg 07/19/25 14:13 07/19/25 14:41 Oxycodone Hcl (*Crx) 5 Mg Tab Ir PO 5 mg Q4H PRN Administration Pain Rated 7-10 Polyethylene Glycol 17 gm 07/16/25 09:00 07/20/25 13:53 Polyethylene Glycol 3350 17 Gm Powd.Pack PO Not Given QAM [facility] Rivaroxaban 20 mg 07/15/25 17:00 07/17/25 16:55 Rivaroxaban 20 Mg Tablet PO 20 mg On Hold: 07/18/25 10:26 DAILY@1700 [facility] Administration Sodium Chloride 10 ml 07/19/25 22:00 07/20/25 14:46 Central Line Flush IV PUSH 10 ml Q8HR SALMA Administration Sodium Chloride 10 ml 07/19/25 17:03 Central Line Flush IV PUSH PRN PRN with TPN bag changes Sodium Chloride 20 ml 07/19/25 17:03 Central Line Flush IV PUSH PRN PRN after blood draws Sodium Zirconium Cyclosilicate 10 gm 07/15/25 10:00 07/15/25 17:26 Sodium Zirconium Cyclosilicate 10 Gm Powd.Pack PO Not Given On Hold: 07/15/25 15:36 TID@1000,1500,2200 [facility] Radiology Results: ITS Impressions Cervical Spine CT 07/15/25 07:00 IMPRESSION: 1. No acute abnormality of the cervical spine. 2: Severe cervical spondylosis. Head CT 07/15/25 07:03 IMPRESSION: 1. No acute intracranial abnormality. Shoulder X-Ray 07/15/25 07:39 Impression: 1: No acute fracture. Wrist X-Ray 07/15/25 07:40 Impression: 1: No acute fracture. Elbow X-Ray 07/15/25 07:41 Impression: 1: No acute fracture. Renal Ultrasound 07/15/25 13:09 Impression: 1: Unremarkable renal ultrasound. No stones, masses or hydronephrosis. Central Venous Line 07/19/25 13:50 IMPRESSION: Fluoroscopy used during portacatheter placement. Chest X-Ray 07/19/25 18:52 IMPRESSION: 1: No acute cardiopulmonary disease. 2: Prominent mediastinum. Consider lymphadenopathy. Labs Labs: Laboratory Tests 07/20/25 06:19 07/20/25 06:19 Lactic Acid 0.8 Calcium 6.4 L Phosphorus 10.3 H Magnesium 2.2 Total Bilirubin 0.5 AST 464 H ALT 211 H Alkaline Phosphatase 80 Total Creatine Kinase > 23663 H Total Protein 5.4 L Albumin 2.6 L
[2025-07-20] MEDS: SODIUM CHLORIDE 0.9% IV 1,000 ML 999 ML IV CONT (12:26)
[2025-07-20] MEDS: PIPERACILLIN/TAZOBACTAM SOD 2.25 GM in SODIUM CHLORIDE 0.9% IV 50 ML 100 ML IVPB ×2 (14:45→22:41)
[2025-07-20] MEDS: AMIODARONE HCL 200 MG TABLET PO (14:45)
--- NOTE | 2025-07-20 15:50 | P.PNIM_ITS ---
Progress Note: A&P Assessment and Plan (1) Hypertension: Code(s): I10 - Essential (primary) hypertension Status: Chronic (2) Atrial fibrillation and flutter: Code(s): I48.91 - Unspecified atrial fibrillation; I48.92 - Unspecified atrial flutter Status: Chronic (3) Type 2 diabetes mellitus with hyperglycemia, without long-term current use of insulin: Code(s): E11.65 - Type 2 diabetes mellitus with hyperglycemia Status: Acute (4) Obesity: Code(s): E66.9 - Obesity, unspecified Status: Acute (5) Transaminitis: Code(s): R74.01 - Elevation of levels of liver transaminase levels Status: Acute (6) Acute kidney injury: Code(s): N17.9 - Acute kidney failure, unspecified Status: Acute (7) Lactic acidosis: Code(s): E87.20 - Acidosis, unspecified Status: Acute (8) Acute hyperkalemia: Code(s): E87.5 - Hyperkalemia Status: Acute (9) Hyperkalemia: Code(s): E87.5 - Hyperkalemia Status: Acute (10) Cellulitis of scrotum: Code(s): N49.2 - Inflammatory disorders of scrotum Status: Acute (11) Anemia: Code(s): D64.9 - Anemia, unspecified Status: Acute (12) Leukocytosis: Qualifiers: Leukocytosis type: unspecified Qualified Code(s): D72.829 - Elevated white blood cell count, unspecified Code(s): D72.829 - Elevated white blood cell count, unspecified Status: Acute (13) Sepsis: Qualifiers: Acute renal failure type: unspecified Sepsis acute organ dysfunction status: with acute organ dysfunction Sepsis type: sepsis due to unspecified organism Severe sepsis acute organ dysfunction type: acute renal failure Severe sepsis shock status: without septic shock Qualified Code(s): A41.9 - Sepsis, unspecified organism; R65.20 - Severe sepsis without septic shock; N17.9 - Acute kidney failure, unspecified Code(s): A41.9 - Sepsis, unspecified organism Status: Acute (14) Rhabdomyolysis: Qualifiers: Rhabdomyolysis type: non-traumatic Qualified Code(s): M62.82 - Rhabdomyolysis Code(s): M62.82 - Rhabdomyolysis Status: Acute (15) Decubital ulcer: Qualifiers: Pressure injury location: unspecified location Pressure injury stage: unstageable Qualified Code(s): L89.95 - Pressure ulcer of unspecified site, unstageable Code(s): L89.90 - Pressure ulcer of unspecified site, unspecified stage Status: Acute (16) Hematoma of right upper extremity: Code(s): S40.021A - Contusion of right upper arm, initial encounter Status: Acute Plan 1) Rhabdomyolysis: due to prolonged time down s/p 3L IV fluids in the ER CPK continues to be elevated patient now receiving hemodialysis Nephrology following trend CK levels still elevated- monitor continue dialysis per Nephrology (2) Acute kidney injury: due to acute rhabdomyolysis Creatinine 6.07 today Nephrology following Currently receiving dialysis as per Nephrology recommendation (3) Acute hyperkalemia: Sodium 5.5 today Defer to Nephrology for dialysis (4) Sepsis: Patient met sepsis criteria with tachycardia, tachypnea and leukocytosis. Exact source of infection is not known. Leukocytosis could be due to leukemoid reaction verses acute infection. He urine does not appear to be acutely infected. He does have open wounds Obtain scrotal ultrasound, bilateral arm ultrasound Chest x-ray unremarkable Appreciate ID help Currently on Zosyn (5) Type 2 diabetes mellitus with hyperglycemia, without long-term current use of insulin: accu checks avoid hypoglycemia SSI while inpatient (6) Chronic anticoagulation: Xarelto has been on hold (7) Transaminitis: most likely due to rhabdomyolysis or possible sepsis hold home statin (8) Hematoma of right upper extremity: Will obtain soft tissue ultrasound for both arms 9. Acute anemia: Status post 1 unit of PRBC Monitor for any bleeding Continue with the erythropoietin 10. Code status: Full 11. DVT prophylaxis: SCDs 12. Disposition: Pending improvement, critically sick right now Time Spent With Patient Time: 41 minutes Subjective Date/time seen: 07/20/25 15:50 Interval history: Continues to have elevated CPK, leukocytosis Generalized swelling Review of Systems Review of Systems: All systems reviewed & are unremarkable except as noted in HPI and below Exam Narrative: Weight 188.6 kg BMI 53.4 Const: Other: Morbidly obese, acutely ill-appearing, disheveled HENMT: Other: Mucous membranes are dry Eyes: Other: no scleral icterus, no conjunctival pallor Neck: Other: Large neck circumference, no lymphadenopathy, Resp: Other: Decreased breath sounds bilaterally Cardio: Other: RRR, swollen bilateral arm GI: Other: Soft, nontender, obese, normoactive bowel sounds : Other: Uncircumcised male Correa catheter present, erythematous moist rash bilateral inguinal folds and pannus folds, significant erythema to bilateral scrotum will with ulceration to the right scrotum with eschar (please see nursing documentation for photos in measurements) Urinary Catheter: Urinary Catheter: patent and draining Skin: Other: Candidiasis noted to pannus folds and bilateral inguinal folds, right buttock erythema that is blanchable and extend extending down into the posterior upper thigh with associated skin shearing, and as a ulcer of the left elbow with overlying eschar unable to stage, right scrotal wound Neuro: Other: Alert oriented to person place and time, speech is clear, no facial asymmetry, no localizing neurologic deficits noted the generalized weakness of the extremities, sensation is intact, patient reports hallucinations Extrem: Other: Bilateral extremity swollen including upper extremity and lower extremity Psych: Other: Appropriate mood and affect, pleasant and cooperative Objective Data Vital Signs Vital Signs: Vital Signs - 24 hr 07/19/25 15:56 07/19/25 16:00 07/19/25 19:45 Temperature 98.3 F Pulse Rate 76 64 Respiratory Rate 20 Blood Pressure 121/48 L Pulse Oximetry 95 97 Oxygen Delivery Nasal Cannula Oxygen Flow Rate 1 07/19/25 19:58 07/19/25 20:00 07/19/25 22:00 Temperature 97.5 F L Pulse Rate 73 59 L 63 Respiratory Rate 20 Blood Pressure 117/58 L Pulse Oximetry 99 Oxygen Delivery Oxygen Flow Rate 07/19/25 23:25 07/20/25 00:00 07/20/25 00:58 Temperature 98.3 F Pulse Rate 64 62 73 Respiratory Rate 18 22 H Blood Pressure 108/59 L Pulse Oximetry 96 Oxygen Delivery Oxygen Flow Rate 07/20/25 01:04 07/20/25 02:00 07/20/25 03:58 Temperature 98.4 F Pulse Rate 68 74 74 Respiratory Rate 22 H 18 Blood Pressure 125/66 Pulse Oximetry 93 Oxygen Delivery Oxygen Flow Rate 07/20/25 04:00 07/20/25 06:00 07/20/25 08:02 Temperature 97.4 F L Pulse Rate 56 L 62 74 Respiratory Rate 18 Blood Pressure 135/74 Pulse Oximetry 94 Oxygen Delivery Oxygen Flow Rate 07/20/25 08:45 07/20/25 08:45 07/20/25 08:55 Temperature 98.2 F Pulse Rate 70 87 Respiratory Rate 16 Blood Pressure 142/62 H 140/87 Pulse Oximetry 94 Oxygen Delivery Oxygen Flow Rate 3 07/20/25 09:15 07/20/25 09:30 07/20/25 09:45 Temperature Pulse Rate 68 75 74 Respiratory Rate Blood Pressure 126/70 118/59 L 108/59 L Pulse Oximetry Oxygen Delivery Oxygen Flow Rate 07/20/25 10:00 07/20/25 10:15 07/20/25 10:30 Temperature Pulse Rate 72 72 72 Respiratory Rate Blood Pressure 124/59 L 121/64 131/63 Pulse Oximetry Oxygen Delivery Oxygen Flow Rate 07/20/25 10:45 07/20/25 11:00 07/20/25 11:15 Temperature Pulse Rate 70 73 74 Respiratory Rate Blood Pressure 124/55 L 131/68 134/66 Pulse Oximetry Oxygen Delivery Oxygen Flow Rate 07/20/25 11:30 07/20/25 11:45 07/20/25 12:00 Temperature Pulse Rate 73 72 75 Respiratory Rate Blood Pressure 130/64 142/64 H 137/64 Pulse Oximetry Oxygen Delivery Oxygen Flow Rate 07/20/25 12:15 07/20/25 12:30 07/20/25 12:43 Temperature Pulse Rate 80 70 78 Respiratory Rate Blood Pressure 121/69 131/58 L 142/66 H Pulse Oximetry Oxygen Delivery Oxygen Flow Rate 07/20/25 12:50 07/20/25 14:45 Temperature 96.8 F L Pulse Rate 74 82 Respiratory Rate 16 Blood Pressure 141/68 H Pulse Oximetry 96 Oxygen Delivery Oxygen Flow Rate Intake/Output Intake/Output: Intake & Output 07/17/25 07/18/25 07/19/25 07/20/25 23:59 23:59 23:59 23:59 Intake Total 970 3580 451 150 Output Total 120 3250 350 2050 Balance 850 330 101 -1900 Meds/Results Medications: Active Medications Generic Name Dose Route Start Last Admin Trade Name Freq PRN Reason Stop Dose Admin Acetaminophen 1,000 mg 07/16/25 09:58 07/18/25 16:13 Acetaminophen 500 Mg Tablet PO 1,000 mg Q6H PRN Administration Fever Acetaminophen 500 mg 07/19/25 14:13 Acetaminophen 500 Mg Tablet PO Q6H PRN Pain Rated 1-3 Albuterol/Ipratropium 3 ml 07/17/25 20:40 07/20/25 00:58 Ipratropium 0.5 Mg/Albuterol Sulfate 2.5 Mg Ampul.Neb 3 Ml INHALATION 3 ml Q6HRT PRN Administration wheezing Amiodarone HCl 200 mg 07/15/25 02:30 07/20/25 14:45 Amiodarone Hcl 200 Mg Tablet PO 200 mg DAILY SALMA Administration Carvedilol 12.5 mg 07/15/25 09:00 07/20/25 14:46 Carvedilol 12.5 Mg Tablet PO Not Given BID SALMA Dextrose 12.5 gm 07/15/25 01:20 Dextrose 50% 25 Gm/50 Ml Syringe IV PUSH PRN PRN Hypoglycemia Protocol Epoetin Sd-epbx 10,000 units 07/18/25 09:00 07/20/25 12:00 Epoetin Sd-Epbx 10,000 Units/Ml Vial IV PUSH 10,000 units MOWEFR@09 SALMA Administration Epoetin Sd-epbx 10,000 units 07/20/25 17:59 07/20/25 12:24 Epoetin Sd-Epbx 10,000 Units/Ml Vial IV PUSH 07/20/25 18:00 10,000 units ONCE ONE Administration Glucagon 1 mg 07/15/25 01:20 Glucagon For Inj 1 Mg Vial IM PRN PRN Hypoglycemia Protocol Glucose 15 gm 07/15/25 01:20 Glucose Oral Gel 15 Gm Of Glucse In 37.5 Gm Tube PO PRN PRN Hypoglycemia Protocol Hydromorphone HCl 1 mg 07/19/25 14:13 Hydromorphone Hcl Inj (*Crx) 1 Mg/Ml Syr IV PUSH Q2H PRN Breakthrough Pain Rated 7-10 or NPO Hydromorphone HCl 0.5 mg 07/19/25 14:13 Hydromorphone Hcl Inj (*Crx) 1 Mg/Ml Syr IV PUSH Q2H PRN Breakthrough Pain Rated 4-6 or NPO Dextrose 1,000 mls @ 100 mls/hr 07/15/25 01:20 Dextrose 5% 1,000 Ml IVPB PRN PRN Hypoglycemia Protocol Albumin Human 50 mls @ 999 mls/hr 07/15/25 15:32 Albutein IVPB 08/14/25 15:31 Q10M PRN HYPOTENSION Vancomycin HCl 1,000 mg/ 250 mls @ 250 mls/hr 07/20/25 15:00 Sodium Chloride IVPB 07/20/25 15:59 ONCE ONE Piperacillin Sod/Tazobactam 50 mls @ 100 mls/hr 07/20/25 14:00 07/20/25 14:45 Sod 2.25 gm/ Sodium Chloride IVPB 100 mls/hr Q8H SALMA Administration Insulin Aspart 3 - 6 units 07/15/25 08:00 07/20/25 13:54 Insulin Aspart (*Bkc) 100 Units/Ml SUB-Q Not Given TIDWM SALMA Protocol Insulin Aspart 1 - 3 units 07/15/25 21:00 07/19/25 21:34 Insulin Aspart (*Bkc) 100 Units/Ml SUB-Q Not Given HS SALMA Protocol Magnesium Hydroxide 30 ml 07/16/25 08:39 Magnesium Hydroxide Susp 30 Ml Udc PO DAILY PRN Constipation Naloxone HCl 0.1 mg 07/19/25 14:13 Naloxone Hcl 0.4 Mg/Ml Vial IV PUSH Q2M PRN Opiate Reversal Oxycodone HCl 2.5 mg 07/19/25 14:13 07/20/25 08:46 Oxycodone Hcl (*Crx) 2.5 Mg Tab Ir PO 2.5 mg Q4H PRN Administration Pain Rated 4-6 Oxycodone HCl 5 mg 07/19/25 14:13 07/19/25 14:41 Oxycodone Hcl (*Crx) 5 Mg Tab Ir PO 5 mg Q4H PRN Administration Pain Rated 7-10 Polyethylene Glycol 17 gm 07/16/25 09:00 07/20/25 13:53 Polyethylene Glycol 3350 17 Gm Powd.Pack PO Not Given QAM SALMA Rivaroxaban 20 mg 07/15/25 17:00 07/17/25 16:55 Rivaroxaban 20 Mg Tablet PO 20 mg On Hold: 07/18/25 10:26 DAILY@1700 SALMA Administration Sodium Chloride 10 ml 07/19/25 22:00 07/20/25 14:46 Central Line Flush IV PUSH 10 ml Q8HR SALMA Administration Sodium Chloride 10 ml 07/19/25 17:03 Central Line Flush IV PUSH PRN PRN with TPN bag changes Sodium Chloride 20 ml 07/19/25 17:03 Central Line Flush IV PUSH PRN PRN after blood draws Sodium Zirconium Cyclosilicate 10 gm 07/15/25 10:00 07/15/25 17:26 Sodium Zirconium Cyclosilicate 10 Gm Powd.Pack PO Not Given On Hold: 07/15/25 15:36 TID@1000,1500,2200 [facility] Radiology Results: ITS Impressions Cervical Spine CT 07/15/25 07:00 IMPRESSION: 1. No acute abnormality of the cervical spine. 2: Severe cervical spondylosis. Head CT 07/15/25 07:03 IMPRESSION: 1. No acute intracranial abnormality. Shoulder X-Ray 07/15/25 07:39 Impression: 1: No acute fracture. Wrist X-Ray 07/15/25 07:40 Impression: 1: No acute fracture. Elbow X-Ray 07/15/25 07:41 Impression: 1: No acute fracture. Renal Ultrasound 07/15/25 13:09 Impression: 1: Unremarkable renal ultrasound. No stones, masses or hydronephrosis. Central Venous Line 07/19/25 13:50 IMPRESSION: Fluoroscopy used during portacatheter placement. Chest X-Ray 07/19/25 18:52 IMPRESSION: 1: No acute cardiopulmonary disease. 2: Prominent mediastinum. Consider lymphadenopathy. Labs Labs: Laboratory Results - last 24 hr 07/19/25 07/19/25 07/19/25 15:49 17:25 21:28 WBC RBC Hgb Hct MCV MCH MCHC RDW Plt Count MPV Immature Gran % (Auto) Neut % (Auto) Lymph % (Auto) Wilson % (Auto) Eos % (Auto) Baso % (Auto) Lymph # (Auto) Wilson # (Auto) Eos # (Auto) Baso # (Auto) Abs Immat Gran (auto) Absolute Neuts (auto) Absolute Nucleated RBC Nucleated RBC % Sodium Potassium Chloride Carbon Dioxide Anion Gap BUN Creatinine Estim Creat Clear Calc Estimated GFR Glucose POC Capillary Glucose 190 H 166 H Lactic Acid Calcium Phosphorus Magnesium Total Bilirubin AST ALT Alkaline Phosphatase Total Creatine Kinase Total Protein Albumin Nasal MRSA (PCR) Not detected 07/20/25 06:19 WBC 17.1 H RBC 2.99 L Hgb 9.3 L Hct 29.4 L MCV 98.3 MCH 31.1 MCHC 31.6 L RDW 14.0 Plt Count 203 MPV 10.1 Immature Gran % (Auto) 4.7 H Neut % (Auto) 77.2 H Lymph % (Auto) 5.5 L Wilson % (Auto) 9.8 H Eos % (Auto) 2.5 Baso % (Auto) 0.3 Lymph # (Auto) 0.95 Wilson # (Auto) 1.7 H Eos # (Auto) 0.4 H Baso # (Auto) 0.1 Abs Immat Gran (auto) 0.80 H Absolute Neuts (auto) 13.2 H Absolute Nucleated RBC 0.000 Nucleated RBC % 0.0 Sodium 124 L Potassium 5.5 H Chloride 90 L Carbon Dioxide 23 Anion Gap 11 BUN 100 H D Creatinine 6.07 H Estim Creat Clear Calc 19 Estimated GFR 9 L Glucose 126 H POC Capillary Glucose Lactic Acid 0.8 Calcium 6.4 L Phosphorus 10.3 H Magnesium 2.2 Total Bilirubin 0.5 AST 464 H ALT 211 H Alkaline Phosphatase 80 Total Creatine Kinase > 76554 H Total Protein 5.4 L Albumin 2.6 L Nasal MRSA (PCR) Quality VTE Prophylaxis VTE prophylaxis: mechanical ordered
--- NOTE | 2025-07-20 16:24 | PC.NURSE ---
On 07/20/25, the student, Josiane, provided care and completed [facility] documentation on this patient. I have reviewed the student's documentation and agree with the findings.
[2025-07-20] MEDS: oxyCODONE HCL (*CRX) 5 MG TAB IR PO ×2 (17:41→21:57)
[2025-07-20] MEDS: VANCOMYCIN HCL 1,000 MG in SODIUM CHLORIDE 0.9% IV 250 ML 250 MG IVPB (18:20)
[2025-07-21] VITALS (30 sets, daily range): BP systolic 88–122; BP diastolic 34–70; PULSE 69–86; RESP 18–26; TEMP 36.5–37; O2SAT 87–98; BMI 11.0
[2025-07-21] MEDS: CENTRAL LINE FLUSH 10 ML IV PUSH ×3 (05:49→21:07)
[2025-07-21] MEDS: PIPERACILLIN/TAZOBACTAM SOD 2.25 GM in SODIUM CHLORIDE 0.9% IV 50 ML 100 ML IVPB ×3 (05:51→21:04)
[2025-07-21 05:57] LABS: Hematocrit 30.1 % (42.0-52.0); Hemoglobin 9.3 g/dL (14.0-18.0); Immature Granulocyte Percent A 7.9 % (0-0.5); Lymphocytes Absolute Auto 1.05 K/mm3 (0.9-3.2); Mean Corpuscular HGB Conc 30.9 g/dl (32-36); Mean Corpuscular Hemoglobin 30.6 pg (26-34); Mean Corpuscular Volume 99.0 fl (80-100); Nucleated Red Blood Cells Absolute Auto 0.040 K/mm3 (0.0-0.012); Nucleated Red Blood Cells Perc 0.2 % (0.0-0.2); Platelet Count Result 195 k/mm3 (150-375); Red Blood Count 3.04 M/mm3 (4.6-6.20); White Blood Count 16.1 K/mm3 (4.5-10.0)
[2025-07-21 07:15] LABS: Alanine Aminotransferase 131 U/L (6-50); Albumin Level 2.7 g/dL (3.5-5.1); Alkaline Phosphatase 109 U/L (38-126); Anion Gap 8 mmol/L (4-12); Aspartate Amino Transferase 361 U/L (17-59); Bilirubin,Total 0.5 mg/dL (0.2-1.3); Blood Urea Nitrogen 83 mg/dL (9-20); Calcium 7.2 mg/dL (8.4-10.2); Carbon Dioxide 24 mmol/L (22-30); Chloride 95 mmol/L (98-107); Creatine Kinase 15714 U/L (55-170); Estimated CRCL calculation 22 ml/min; Estimated Glomerular Filt Rate 11; Glucose 136 mg/dL (65-110); Magnesium 2.3 mg/dL (1.6-2.3); Potassium 5.1 mmol/L (3.4-5.0); Sodium 127 mmol/L (137-145); Total Protein 5.4 g/dL (6.3-8.2)
[2025-07-21] MEDS: oxyCODONE HCL (*CRX) 2.5 MG TAB IR PO ×2 (07:52→21:03)
--- NOTE | 2025-07-21 09:07 | PCOTNOTE ---
The patient treatment was not able to be completed. Patient out of the room. Will plan to continue treatment per plan of care.
--- NOTE | 2025-07-21 11:18 | WPDINFPN2 ---
Progress Note: A&P Assessment and Plan (1) Leukocytosis: Qualifiers: Leukocytosis type: unspecified Qualified Code(s): D72.829 - Elevated white blood cell count, unspecified Code(s): D72.829 - Elevated white blood cell count, unspecified Status: Acute (2) Cellulitis of scrotum: Code(s): N49.2 - Inflammatory disorders of scrotum Status: Acute (3) Hematoma of right upper extremity: Code(s): S40.021A - Contusion of right upper arm, initial encounter Status: Acute (4) Anemia: Code(s): D64.9 - Anemia, unspecified Status: Acute (5) Rhabdomyolysis: Qualifiers: Rhabdomyolysis type: non-traumatic Qualified Code(s): M62.82 - Rhabdomyolysis Code(s): M62.82 - Rhabdomyolysis Status: Acute (6) Acute kidney injury: Code(s): N17.9 - Acute kidney failure, unspecified Status: Acute (7) Transaminitis: Code(s): R74.01 - Elevation of levels of liver transaminase levels Status: Acute (8) Chronic hyponatremia: Code(s): E87.1 - Hypo-osmolality and hyponatremia Status: Acute (9) Hyperkalemia: Code(s): E87.5 - Hyperkalemia Status: Acute Plan # Improved but persistent leukocytosis after admission for immobility-associated rhabdomyolysis and KAITLIN with acute renal failure. -- possibly associated with infectious etiology and would consider ongoing scrotal inflammation / cellulitis / abscess/ severe tinea cruris. However, does not clinically appear to be progressive or associated with Tamera's gangrene. Ultrasound of scrotum identifies diffuse wall thickening. No mention of abscess. -- possibly associated with right arm hematoma, either sterile or secondarily infected. However, no ballotable collection of fluid around the elbow, arm appears to be with generalized swelling, and ultrasound only identifies mild subcutaneous edema in the area of swelling. -- acute anemia with hemoglobin dropped to 6.8 likely contributing to a leukemoid reaction. Acute anemia likely multifactorial and secondary to rehydration and arm hematoma but may need to rule out GI blood loss. Hemoglobin remaining stable at 9.3. -- continued leukemoid triggers such as persistent CPK elevation in the setting of acute rhabdomyolysis. -- rule out adrenal insufficiency given hyponatremia and hyperkalemia although the latter likely associated with KAITLIN. -- constipation has been associated with leukocytosis. -- no evidence of pneumonia or urinary tract infection. Blood cultures have been negative to date. Plan: -- aerobic and anaerobic cultures with Gram stain ordered for scrotal wound purulent drainage. Results remain pending. -- patient size may preclude CT scans. -- a.m. cortisol level ordered. -- patient is MRSA screen negative and although this does not rule out potential MRSA infection recommend discontinuing vancomycin and changing ceftriaxone to Zosyn 2.25 g q.8 hours to provide broadened Gram-negative and additional anaerobic coverage in addition to continued streptococcal coverage. -- continue miconazole powder to scrotum. Patient was seen via video telehealth consultation with the assistance of staff. Chart, data, and patient independently reviewed. Patient was located at [facility] while I was located in my [place] office. Received verbal consent from patient. Subjective Date/time seen: 07/21/25 11:18 Interval history: 07/21/2025: Feels better. Right arm decreased swelling. Afebrile with soft blood pressure. White blood cell count decreased today to 16.1 and hemoglobin has remained stable at 9.3. Liver enzymes continue to slowly improved. Slight decrease in CPK. Ultrasound of scrotum failed to identify abscess. Right upper extremity ultrasound failed to identify hematoma. Superficial venous thrombosis seen in the left arm. Denies bowel movement since Friday. Review of Systems Review of Systems: Discomfort to right elbow with dressing changes. No scrotal pain. All systems reviewed & are unremarkable except as noted in HPI and below Exam Narrative: Awake, alert, appropriate, and interactive. No distress. Patient is obese. No respiratory difficulty. Abdomen is protuberant with overhanging pannus. No panniculitis. Some scrotal swelling with improvement in overall erythema since admission; however, purulent drainage noted from skin breakdown site. Diffuse right upper extremity swelling--slightly better. PICC or midline catheter present in right upper extremity. Areas of bruising /ecchymosis noted. No ballotable fluid collection apparent around elbow- -just diffuse arm swelling--again improved. No rash. Has chronic hyperkeratosis involving arms and legs. Objective Data Vital Signs Vital Signs: Vital Signs - 24 hr 07/20/25 11:30 07/20/25 11:45 07/20/25 12:00 Temperature Pulse Rate 73 72 75 Respiratory Rate Blood Pressure 130/64 142/64 H 137/64 Pulse Oximetry Oxygen Delivery Oxygen Flow Rate 07/20/25 12:00 07/20/25 12:15 07/20/25 12:30 Temperature Pulse Rate 80 80 70 Respiratory Rate Blood Pressure 121/69 131/58 L Pulse Oximetry Oxygen Delivery Oxygen Flow Rate 07/20/25 12:43 07/20/25 12:50 07/20/25 14:00 Temperature 96.8 F L Pulse Rate 78 74 81 Respiratory Rate 16 Blood Pressure 142/66 H 141/68 H Pulse Oximetry 96 Oxygen Delivery Oxygen Flow Rate 07/20/25 14:45 07/20/25 15:58 07/20/25 16:00 Temperature 97.8 F Pulse Rate 82 80 80 Respiratory Rate 22 H Blood Pressure 133/70 Pulse Oximetry 97 Oxygen Delivery Oxygen Flow Rate 07/20/25 17:40 07/20/25 18:00 07/20/25 19:02 Temperature 97.9 F Pulse Rate 81 78 76 Respiratory Rate 22 H Blood Pressure 130/53 L Pulse Oximetry 96 Oxygen Delivery Oxygen Flow Rate 07/20/25 20:00 07/20/25 22:00 07/20/25 23:20 Temperature 98.0 F Pulse Rate 75 71 74 Respiratory Rate 18 Blood Pressure 110/58 L Pulse Oximetry 97 Oxygen Delivery Oxygen Flow Rate 07/21/25 00:00 07/21/25 02:00 07/21/25 04:00 Temperature Pulse Rate 73 72 69 Respiratory Rate Blood Pressure Pulse Oximetry Oxygen Delivery Oxygen Flow Rate 07/21/25 06:00 07/21/25 07:35 07/21/25 08:00 Temperature 97.8 F Pulse Rate 71 70 Respiratory Rate 26 H Blood Pressure 96/61 L Pulse Oximetry 97 96 Oxygen Delivery Nasal Cannula Oxygen Flow Rate 1 07/21/25 08:00 07/21/25 08:31 07/21/25 08:31 Temperature 97.9 F Pulse Rate 74 73 Respiratory Rate 18 Blood Pressure 93/34 L Pulse Oximetry Oxygen Delivery Oxygen Flow Rate 2 07/21/25 08:40 07/21/25 09:00 07/21/25 09:15 Temperature Pulse Rate 71 71 72 Respiratory Rate Blood Pressure 91/39 L 92/38 L 103/70 Pulse Oximetry Oxygen Delivery Oxygen Flow Rate 07/21/25 09:30 07/21/25 09:45 07/21/25 10:00 Temperature Pulse Rate 76 72 73 Respiratory Rate Blood Pressure 93/35 L 90/37 L 91/39 L Pulse Oximetry Oxygen Delivery Oxygen Flow Rate 07/21/25 10:00 07/21/25 10:15 07/21/25 10:30 Temperature Pulse Rate 75 74 77 Respiratory Rate Blood Pressure 90/41 L 96/41 L Pulse Oximetry Oxygen Delivery Oxygen Flow Rate 07/21/25 10:45 07/21/25 11:00 Temperature Pulse Rate 73 74 Respiratory Rate Blood Pressure 94/37 L 100/42 L Pulse Oximetry Oxygen Delivery Oxygen Flow Rate Intake/Output Intake/Output: Intake & Output 07/18/25 07/19/25 07/20/25 07/21/25 23:59 23:59 23:59 23:59 Intake Total 3580 451 650 100 Output Total 3250 350 2175 50 Balance 330 101 -1525 50 Meds/Results Medications: Active Medications Generic Name Dose Route Start Last Admin Trade Name Freq PRN Reason Stop Dose Admin Acetaminophen 1,000 mg 07/16/25 09:58 07/18/25 16:13 Acetaminophen 500 Mg Tablet PO 1,000 mg Q6H PRN Administration Fever Acetaminophen 500 mg 07/19/25 14:13 Acetaminophen 500 Mg Tablet PO Q6H PRN Pain Rated 1-3 Albuterol/Ipratropium 3 ml 07/17/25 20:40 07/20/25 00:58 Ipratropium 0.5 Mg/Albuterol Sulfate 2.5 Mg Ampul.Neb 3 Ml INHALATION 3 ml Q6HRT PRN Administration wheezing Amiodarone HCl 200 mg 07/15/25 02:30 07/20/25 14:45 Amiodarone Hcl 200 Mg Tablet PO 200 mg DAILY SALMA Administration Carvedilol 12.5 mg 07/15/25 09:00 07/20/25 17:40 Carvedilol 12.5 Mg Tablet PO 12.5 mg BID SALMA Administration Dextrose 12.5 gm 07/15/25 01:20 Dextrose 50% 25 Gm/50 Ml Syringe IV PUSH PRN PRN Hypoglycemia Protocol Epoetin Sd-epbx 10,000 units 07/18/25 09:00 07/20/25 12:00 Epoetin Sd-Epbx 10,000 Units/Ml Vial IV PUSH 10,000 units MOWEFR@09 SALMA Administration Glucagon 1 mg 07/15/25 01:20 Glucagon For Inj 1 Mg Vial IM PRN PRN Hypoglycemia Protocol Glucose 15 gm 07/15/25 01:20 Glucose Oral Gel 15 Gm Of Glucse In 37.5 Gm Tube PO PRN PRN Hypoglycemia Protocol Hydromorphone HCl 1 mg 07/19/25 14:13 Hydromorphone Hcl Inj (*Crx) 1 Mg/Ml Syr IV PUSH Q2H PRN Breakthrough Pain Rated 7-10 or NPO Hydromorphone HCl 0.5 mg 07/19/25 14:13 Hydromorphone Hcl Inj (*Crx) 1 Mg/Ml Syr IV PUSH Q2H PRN Breakthrough Pain Rated 4-6 or NPO Dextrose 1,000 mls @ 100 mls/hr 07/15/25 01:20 Dextrose 5% 1,000 Ml IVPB PRN PRN Hypoglycemia Protocol Albumin Human 50 mls @ 999 mls/hr 07/15/25 15:32 Albutein IVPB 08/14/25 15:31 Q10M PRN HYPOTENSION Piperacillin Sod/Tazobactam 50 mls @ 100 mls/hr 07/20/25 14:00 07/21/25 05:51 Sod 2.25 gm/ Sodium Chloride IVPB 100 mls/hr Q8H SALMA Administration Insulin Aspart 3 - 6 units 07/15/25 08:00 07/20/25 18:19 Insulin Aspart (*Bkc) 100 Units/Ml SUB-Q Not Given TIDWM [facility] Protocol Insulin Aspart 1 - 3 units 07/15/25 21:00 07/20/25 22:37 Insulin Aspart (*Bkc) 100 Units/Ml SUB-Q Not Given HS [facility] Protocol Magnesium Hydroxide 30 ml 07/16/25 08:39 Magnesium Hydroxide Susp 30 Ml Udc PO DAILY PRN Constipation Naloxone HCl 0.1 mg 07/19/25 14:13 Naloxone Hcl 0.4 Mg/Ml Vial IV PUSH Q2M PRN Opiate Reversal Oxycodone HCl 2.5 mg 07/19/25 14:13 07/21/25 07:52 Oxycodone Hcl (*Crx) 2.5 Mg Tab Ir PO 2.5 mg Q4H PRN Administration Pain Rated 4-6 Oxycodone HCl 5 mg 07/19/25 14:13 07/20/25 21:57 Oxycodone Hcl (*Crx) 5 Mg Tab Ir PO 5 mg Q4H PRN Administration Pain Rated 7-10 Polyethylene Glycol 17 gm 07/16/25 09:00 07/20/25 13:53 Polyethylene Glycol 3350 17 Gm Powd.Pack PO Not Given QAM [facility] Rivaroxaban 20 mg 07/15/25 17:00 07/17/25 16:55 Rivaroxaban 20 Mg Tablet PO 20 mg On Hold: 07/18/25 10:26 DAILY@1700 [facility] Administration Sodium Chloride 10 ml 07/19/25 22:00 07/21/25 05:49 Central Line Flush IV PUSH 10 ml Q8HR SALMA Administration Sodium Chloride 10 ml 07/19/25 17:03 Central Line Flush IV PUSH PRN PRN with TPN bag changes Sodium Chloride 20 ml 07/19/25 17:03 Central Line Flush IV PUSH PRN PRN after blood draws Sodium Zirconium Cyclosilicate 10 gm 07/15/25 10:00 07/15/25 17:26 Sodium Zirconium Cyclosilicate 10 Gm Powd.Pack PO Not Given On Hold: 07/15/25 15:36 TID@1000,1500,2200 [facility] Radiology Results: ITS Impressions Cervical Spine CT 07/15/25 07:00 IMPRESSION: 1. No acute abnormality of the cervical spine. 2: Severe cervical spondylosis. Head CT 07/15/25 07:03 IMPRESSION: 1. No acute intracranial abnormality. Shoulder X-Ray 07/15/25 07:39 Impression: 1: No acute fracture. Wrist X-Ray 07/15/25 07:40 Impression: 1: No acute fracture. Elbow X-Ray 07/15/25 07:41 Impression: 1: No acute fracture. Renal Ultrasound 07/15/25 13:09 Impression: 1: Unremarkable renal ultrasound. No stones, masses or hydronephrosis. Central Venous Line 07/19/25 13:50 IMPRESSION: Fluoroscopy used during portacatheter placement. Chest X-Ray 07/19/25 18:52 IMPRESSION: 1: No acute cardiopulmonary disease. 2: Prominent mediastinum. Consider lymphadenopathy. Scrotum Ultrasound 07/20/25 19:05 IMPRESSION: 1. Diffuse scrotal wall thickening. Consider an infectious/inflammatory process such as cellulitis, lymphedema or systemic causes like cirrhosis, nephrotic syndrome or generalized edema. Soft Tissue Ultrasound 07/20/25 19:10 Impression: 1: Area of superficial venous thrombosis corresponds to the area of left arm swelling. Labs Labs: Laboratory Results - last 24 hr 07/20/25 07/20/25 07/21/25 15:47 20:31 05:44 WBC 16.1 H RBC 3.04 L Hgb 9.3 L Hct 30.1 L MCV 99.0 MCH 30.6 MCHC 30.9 L RDW 14.1 Plt Count 195 MPV 10.2 Immature Gran % (Auto) 7.9 H Neut % (Auto) 73.0 Lymph % (Auto) 6.5 L [place] % (Auto) 9.7 H Eos % (Auto) 2.5 Baso % (Auto) 0.4 Lymph # (Auto) 1.05 [place] # (Auto) 1.6 H Eos # (Auto) 0.4 H Baso # (Auto) 0.1 Abs Immat Gran (auto) 1.27 H Absolute Neuts (auto) 11.8 H Absolute Nucleated RBC 0.040 H Nucleated RBC % 0.2 Sodium 127 L Potassium 5.1 H Chloride 95 L Carbon Dioxide 24 Anion Gap 8 BUN 83 H D Creatinine 5.27 H Estim Creat Clear Calc 22 Estimated GFR 11 L Glucose 136 H POC Capillary Glucose 184 H 161 H Calcium 7.2 L Phosphorus 9.2 H Magnesium 2.3 Total Bilirubin 0.5 AST 361 H ALT 131 H Alkaline Phosphatase 109 Total Creatine Kinase 70426 H Total Protein 5.4 L Albumin 2.7 L 07/21/25 07:39 WBC RBC Hgb Hct MCV MCH MCHC RDW Plt Count MPV Immature Gran % (Auto) Neut % (Auto) Lymph % (Auto) [place] % (Auto) Eos % (Auto) Baso % (Auto) Lymph # (Auto) [place] # (Auto) Eos # (Auto) Baso # (Auto) Abs Immat Gran (auto) Absolute Neuts (auto) Absolute Nucleated RBC Nucleated RBC % Sodium Potassium Chloride Carbon Dioxide Anion Gap BUN Creatinine Estim Creat Clear Calc Estimated GFR Glucose POC Capillary Glucose 123 H Calcium Phosphorus Magnesium Total Bilirubin AST ALT Alkaline Phosphatase Total Creatine Kinase Total Protein Albumin
[2025-07-21] MEDS: EPOETIN ALFA-EPBX 10,000 UNITS/ML VIAL 10000 UNITS IV PUSH (11:55)
--- NOTE | 2025-07-21 12:10 | P.PNNP_ITS ---
Progress Note: A&P Assessment and Plan (1) Acute kidney injury: Code(s): N17.9 - Acute kidney failure, unspecified Status: Acute Assessment and Plan: * as noted by admission labs * progressively worsening as noted by trend of labs since hospitalization began * was also complicated by persistent hyperkalemia unresponsive to medical therapy and declining UOP * baseline creatinine normal: * 1.16mg/dL in October 2024 (by outpatient labs by PCP) * 1.30mg/dL in October 2022 ([facility]) * multifactorial etiology: * rhabdomyolysis * LAURY-I use prior to admission * diuretic use (lasix + spironolactone) prior to admission * prerenal factors(?) * infection/early sepsis(?) * other(?) * still with poor urine output and noted intradialytic rise in BUN/creatinine/K+ * s/p tunneled HD catheter placement (on 07/19/25) * HD yesterday and today * may need to consider at least 4x/week treatments for clearance and electrolyte control for a period of time * follow trend of repeat labs and UOP for to assess for potential renal recovery (2) Hyperkalemia: Code(s): E87.5 - Hyperkalemia Status: Acute Assessment and Plan: * recurrent since admission * poor response to medical management despite multiple rounds of therapy to date * better control with dialysis * follow trend of repeat K+ levels (3) Rhabdomyolysis: Code(s): M62.82 - Rhabdomyolysis Status: Acute Assessment and Plan: * as noted by elevated CPK * likely related to prolonged downtime from fall * contributing to hyperkalemia and KAITLIN * CPK finally downtrending today (on 07/21) (4) Sepsis: Qualifiers: Acute renal failure type: unspecified Sepsis acute organ dysfunction status: with acute organ dysfunction Sepsis type: sepsis due to unspecified organism Severe sepsis acute organ dysfunction type: acute renal failure S evere sepsis shock status: without septic shock Qualified Code(s): A41.9 - Sepsis, unspecified organism; R65.20 - Severe sepsis without septic shock; N17.9 - Acute kidney failure, unspecified Code(s): A41.9 - Sepsis, unspecified organism Status: Acute Assessment and Plan: * suspected due to elevated WBC, lactic acidosis, tachycardia, tachypnea on admission * no clear source at this time * blood cultures negative from 07/14 * Infectious Disease consultation/recommendations noted * follow hemodynamics * on empiric antibiotics (5) Atrial fibrillation and flutter: Code(s): I48.91 - Unspecified atrial fibrillation; I48.92 - Unspecified atrial flutter Status: Chronic Assessment and Plan: * paroxysmal in nature * on amiodarone * on anticoagulation (6) Transaminitis: Code(s): R74.01 - Elevation of levels of liver transaminase levels Status: Acute Assessment and Plan: * presumably related to rhabdomyolysis * holding statin * continue follow trend of LFTs as surrogate for the rhabdo (because this CK is so high) * slow improvement noted (7) Hypertension: Code(s): I10 - Essential (primary) hypertension Status: Chronic Assessment and Plan: * reasonable control * follow trend of hemodynamics (8) Diabetes: Code(s): E11.9 - Type 2 diabetes mellitus without complications Status: Chronic Assessment and Plan: * follow accu-cheks * glycemic control per hospitalist Will continue to follow. L Subjective Date/time seen: 07/21/25 12:10 Interval history: Follow-up for acute kidney injury/acute renal failure and hyperkalemia. Tolerated dialysis treatment yesterday and tolerating dialysis treatment at the time of my visit [seen on HD at 12:00pm (BUN, K+, and phosphours still quite elevated and hence treatment today)]; still not making much urine; mild improvement in CPK level; swelling/edema present but doing a bit better; no apparent distress noted when seen Exam 2 Narrative: General: elderly but large and WD/WN male in NAD Heart: normal S1 and S2; no rub Lungs: clear anteriorly; decreased at bases Abdomen: soft, nontender, nondistended, positive bowel sounds Extremities: no cyanosis or clubbing; trace - 1+ edema (upper and lower extremities) Skin: venous stasis changes over BLEs Objective Data Vital Signs Vital Signs: Vital Signs Temp Pulse Resp BP Pulse Ox O2 Del Method O2 Flow Rate 07/21/25 12:00 76 94/42 L 07/21/25 11:45 75 91/42 L 07/21/25 11:30 74 88/42 L 07/21/25 11:15 76 98/43 L 07/21/25 11:00 74 100/42 L 07/21/25 10:45 73 94/37 L 07/21/25 10:30 77 96/41 L 07/21/25 10:15 74 90/41 L 07/21/25 10:00 75 07/21/25 10:00 73 91/39 L 07/21/25 09:45 72 90/37 L 07/21/25 09:30 76 93/35 L 07/21/25 09:15 72 103/70 07/21/25 09:00 71 92/38 L 07/21/25 08:40 71 91/39 L 07/21/25 08:31 97.9 F 73 18 93/34 L 07/21/25 08:31 2 07/21/25 08:00 74 07/21/25 08:00 96 Nasal Cannula 1 07/21/25 07:35 97.8 F 70 26 H 96/61 L 97 07/21/25 06:00 71 07/21/25 04:00 69 07/21/25 02:00 72 07/21/25 00:00 73 07/20/25 23:20 98.0 F 74 18 110/58 L 97 07/20/25 22:00 71 07/20/25 20:00 75 07/20/25 19:02 97.9 F 76 22 H 130/53 L 96 07/20/25 18:00 78 07/20/25 17:40 81 07/20/25 16:00 80 07/20/25 15:58 97.8 F 80 22 H 133/70 97 07/20/25 14:45 82 07/20/25 14:00 81 Intake/Output Intake/Output: Intake & Output 07/18/25 07/19/25 07/20/25 07/21/25 23:59 23:59 23:59 23:59 Intake Total 3580 451 650 150 Output Total 3250 350 2175 1050 Balance 330 944 -4866 -013 Meds/Results Medications: Active Medications Generic Name Dose Route Start Last Admin Trade Name Freq PRN Reason Stop Dose Admin Acetaminophen 1,000 mg 07/16/25 09:58 07/18/25 16:13 Acetaminophen 500 Mg Tablet PO 1,000 mg Q6H PRN Administration Fever Acetaminophen 500 mg 07/19/25 14:13 Acetaminophen 500 Mg Tablet PO Q6H PRN Pain Rated 1-3 Albuterol/Ipratropium 3 ml 07/17/25 20:40 07/20/25 00:58 Ipratropium 0.5 Mg/Albuterol Sulfate 2.5 Mg Ampul.Neb 3 Ml INHALATION 3 ml Q6HRT PRN Administration wheezing Amiodarone HCl 200 mg 07/15/25 02:30 07/21/25 13:48 Amiodarone Hcl 200 Mg Tablet PO 200 mg DAILY SALMA Administration Carvedilol 12.5 mg 07/15/25 09:00 07/21/25 09:00 Carvedilol 12.5 Mg Tablet PO Not Given BID SALMA Dextrose 12.5 gm 07/15/25 01:20 Dextrose 50% 25 Gm/50 Ml Syringe IV PUSH PRN PRN Hypoglycemia Protocol Epoetin Sd-epbx 10,000 units 07/18/25 09:00 07/20/25 12:00 Epoetin Sd-Epbx 10,000 Units/Ml Vial IV PUSH 10,000 units MOWEFR@09 SALMA Administration Glucagon 1 mg 07/15/25 01:20 Glucagon For Inj 1 Mg Vial IM PRN PRN Hypoglycemia Protocol Glucose 15 gm 07/15/25 01:20 Glucose Oral Gel 15 Gm Of Glucse In 37.5 Gm Tube PO PRN PRN Hypoglycemia Protocol Hydromorphone HCl 1 mg 07/19/25 14:13 Hydromorphone Hcl Inj (*Crx) 1 Mg/Ml Syr IV PUSH Q2H PRN Breakthrough Pain Rated 7-10 or NPO Hydromorphone HCl 0.5 mg 07/19/25 14:13 Hydromorphone Hcl Inj (*Crx) 1 Mg/Ml Syr IV PUSH Q2H PRN Breakthrough Pain Rated 4-6 or NPO Dextrose 1,000 mls @ 100 mls/hr 07/15/25 01:20 Dextrose 5% 1,000 Ml IVPB PRN PRN Hypoglycemia Protocol Albumin Human 50 mls @ 999 mls/hr 07/15/25 15:32 Albutein IVPB 08/14/25 15:31 Q10M PRN HYPOTENSION Piperacillin Sod/Tazobactam 50 mls @ 100 mls/hr 07/20/25 14:00 07/21/25 13:48 Sod 2.25 gm/ Sodium Chloride IVPB 100 mls/hr Q8H SALMA Administration Insulin Aspart 3 - 6 units 07/15/25 08:00 07/21/25 13:40 Insulin Aspart (*Bkc) 100 Units/Ml SUB-Q Not Given TIDWM [facility] Protocol Insulin Aspart 1 - 3 units 07/15/25 21:00 07/20/25 22:37 Insulin Aspart (*Bkc) 100 Units/Ml SUB-Q Not Given HS [facility] Protocol Magnesium Hydroxide 30 ml 07/16/25 08:39 Magnesium Hydroxide Susp 30 Ml Udc PO DAILY PRN Constipation Naloxone HCl 0.1 mg 07/19/25 14:13 Naloxone Hcl 0.4 Mg/Ml Vial IV PUSH Q2M PRN Opiate Reversal Oxycodone HCl 2.5 mg 07/19/25 14:13 07/21/25 07:52 Oxycodone Hcl (*Crx) 2.5 Mg Tab Ir PO 2.5 mg Q4H PRN Administration Pain Rated 4-6 Oxycodone HCl 5 mg 07/19/25 14:13 07/20/25 21:57 Oxycodone Hcl (*Crx) 5 Mg Tab Ir PO 5 mg Q4H PRN Administration Pain Rated 7-10 Polyethylene Glycol 17 gm 07/16/25 09:00 07/20/25 13:53 Polyethylene Glycol 3350 17 Gm Powd.Pack PO Not Given QAM [facility] Rivaroxaban 20 mg 07/15/25 17:00 07/17/25 16:55 Rivaroxaban 20 Mg Tablet PO 20 mg On Hold: 07/18/25 10:26 DAILY@1700 [facility] Administration Sodium Chloride 10 ml 07/19/25 22:00 07/21/25 13:49 Central Line Flush IV PUSH 10 ml Q8HR [facility] Administration Sodium Chloride 10 ml 07/19/25 17:03 Central Line Flush IV PUSH PRN PRN with TPN bag changes Sodium Chloride 20 ml 07/19/25 17:03 Central Line Flush IV PUSH PRN PRN after blood draws Sodium Zirconium Cyclosilicate 10 gm 07/15/25 10:00 07/15/25 17:26 Sodium Zirconium Cyclosilicate 10 Gm Powd.Pack PO Not Given On Hold: 07/15/25 15:36 TID@1000,1500,2200 [facility] Radiology Results: ITS Impressions Cervical Spine CT 07/15/25 07:00 IMPRESSION: 1. No acute abnormality of the cervical spine. 2: Severe cervical spondylosis. Head CT 07/15/25 07:03 IMPRESSION: 1. No acute intracranial abnormality. Shoulder X-Ray 07/15/25 07:39 Impression: 1: No acute fracture. Wrist X-Ray 07/15/25 07:40 Impression: 1: No acute fracture. Elbow X-Ray 07/15/25 07:41 Impression: 1: No acute fracture. Renal Ultrasound 07/15/25 13:09 Impression: 1: Unremarkable renal ultrasound. No stones, masses or hydronephrosis. Central Venous Line 07/19/25 13:50 IMPRESSION: Fluoroscopy used during portacatheter placement. Chest X-Ray 07/19/25 18:52 IMPRESSION: 1: No acute cardiopulmonary disease. 2: Prominent mediastinum. Consider lymphadenopathy. Scrotum Ultrasound 07/20/25 19:05 IMPRESSION: 1. Diffuse scrotal wall thickening. Consider an infectious/inflammatory process such as cellulitis, lymphedema or systemic causes like cirrhosis, nephrotic syndrome or generalized edema. Soft Tissue Ultrasound 07/20/25 19:10 Impression: 1: Area of superficial venous thrombosis corresponds to the area of left arm swelling. Labs Labs: Laboratory Tests 07/21/25 05:44 07/21/25 05:44 Calcium 7.2 L Phosphorus 9.2 H Magnesium 2.3 Total Bilirubin 0.5 AST 361 H ALT 131 H Alkaline Phosphatase 109 Total Creatine Kinase 12102 H Total Protein 5.4 L Albumin 2.7 L
[2025-07-21] MEDS: SODIUM CHLORIDE 0.9% IV 1,000 ML 999 ML IV CONT (12:54)
[2025-07-21] MEDS: AMIODARONE HCL 200 MG TABLET PO (13:48)
--- NOTE | 2025-07-21 16:48 | P.PNIM_ITS ---
Progress Note: A&P Assessment and Plan (1) Hypertension: Code(s): I10 - Essential (primary) hypertension Status: Chronic (2) Atrial fibrillation and flutter: Code(s): I48.91 - Unspecified atrial fibrillation; I48.92 - Unspecified atrial flutter Status: Chronic (3) Type 2 diabetes mellitus with hyperglycemia, without long-term current use of insulin: Code(s): E11.65 - Type 2 diabetes mellitus with hyperglycemia Status: Acute (4) Obesity: Code(s): E66.9 - Obesity, unspecified Status: Acute (5) Transaminitis: Code(s): R74.01 - Elevation of levels of liver transaminase levels Status: Acute (6) Acute kidney injury: Code(s): N17.9 - Acute kidney failure, unspecified Status: Acute (7) Lactic acidosis: Code(s): E87.20 - Acidosis, unspecified Status: Acute (8) Acute hyperkalemia: Code(s): E87.5 - Hyperkalemia Status: Acute (9) Hyperkalemia: Code(s): E87.5 - Hyperkalemia Status: Acute (10) Cellulitis of scrotum: Code(s): N49.2 - Inflammatory disorders of scrotum Status: Acute (11) Anemia: Code(s): D64.9 - Anemia, unspecified Status: Acute (12) Leukocytosis: Qualifiers: Leukocytosis type: unspecified Qualified Code(s): D72.829 - Elevated white blood cell count, unspecified Code(s): D72.829 - Elevated white blood cell count, unspecified Status: Acute (13) Sepsis: Qualifiers: Acute renal failure type: unspecified Sepsis acute organ dysfunction status: with acute organ dysfunction Sepsis type: sepsis due to unspecified organism Severe sepsis acute organ dysfunction type: acute renal failure Severe sepsis shock status: without septic shock Qualified Code(s): A41.9 - Sepsis, unspecified organism; R65.20 - Severe sepsis without septic shock; N17.9 - Acute kidney failure, unspecified Code(s): A41.9 - Sepsis, unspecified organism Status: Acute (14) Rhabdomyolysis: Qualifiers: Rhabdomyolysis type: non-traumatic Qualified Code(s): M62.82 - Rhabdomyolysis Code(s): M62.82 - Rhabdomyolysis Status: Acute (15) Decubital ulcer: Qualifiers: Pressure injury location: unspecified location Pressure injury stage: unstageable Qualified Code(s): L89.95 - Pressure ulcer of unspecified site, unstageable Code(s): L89.90 - Pressure ulcer of unspecified site, unspecified stage Status: Acute (16) Hematoma of right upper extremity: Code(s): S40.021A - Contusion of right upper arm, initial encounter Status: Acute Plan 1) Rhabdomyolysis: due to prolonged time down s/p 3L IV fluids in the ER CPK [id number] down from >[id number] Nephrology following trend CK levels continue dialysis per Nephrology (2) Acute kidney injury: due to acute rhabdomyolysis Creatinine 5.27/BUN 83 today Nephrology following Currently receiving dialysis as per Nephrology recommendation (3) Acute hyperkalemia: Sodium 5.1 today Defer to Nephrology for dialysis (4) Sepsis: Patient met sepsis criteria with tachycardia, tachypnea and leukocytosis. Exact source of infection is not known. Leukocytosis could be due to leukemoid reaction verses acute infection. He urine does not appear to be acutely infected. He does have open wounds Obtain scrotal ultrasound, bilateral arm ultrasound Chest x-ray unremarkable Appreciate ID help Currently on Zosyn (5) Type 2 diabetes mellitus with hyperglycemia, without long-term current use of insulin: accu checks avoid hypoglycemia SSI while inpatient (6) Chronic anticoagulation: Xarelto has been on hold (7) Transaminitis: most likely due to rhabdomyolysis or possible sepsis markedly improving AST/ALT 361/131 today hold home statin (8) Hematoma of right upper extremity: Will obtain soft tissue ultrasound for both arms 9. Acute anemia: Status post 1 unit of PRBC Monitor for any bleeding Continue with the erythropoietin Hb 9.3 Hyponatremia Na 127 Nephrology following 10. Code status: Full 11. DVT prophylaxis: SCDs 12. Disposition: Pending improvement Subjective Date/time seen: 07/21/25 16:48 Interval history: Comfortable at bedside Review of Systems Review of Systems: 12 systems were reviewed with pertinent positives and negatives per HPI. Except as documented in the HPI, all other systems were reviewed and are negative. All systems reviewed & are unremarkable except as noted in HPI and below Exam Narrative: Weight 188.6 kg BMI 53.4 Const: Other: Morbidly obese, acutely ill-appearing, disheveled HENMT: Other: Mucous membranes are dry Eyes: Other: no scleral icterus, no conjunctival pallor Neck: Other: Large neck circumference, no lymphadenopathy, Resp: Other: Decreased breath sounds bilaterally Cardio: Other: RRR, swollen bilateral arm GI: Other: Soft, nontender, obese, normoactive bowel sounds : Other: Uncircumcised male Correa catheter present, erythematous moist rash bilateral inguinal folds and pannus folds, significant erythema to bilateral scrotum will with ulceration to the right scrotum with eschar (please see nursing documentation for photos in measurements) Urinary Catheter: Urinary Catheter: patent and draining Skin: Other: Candidiasis noted to pannus folds and bilateral inguinal folds, right buttock erythema that is blanchable and extend extending down into the posterior upper thigh with associated skin shearing, and as a ulcer of the left elbow with overlying eschar unable to stage, right scrotal wound Neuro: Other: Alert oriented to person place and time, speech is clear, no facial asymmetry, no localizing neurologic deficits noted the generalized weakness of the ext remities, sensation is intact, patient reports hallucinations Extrem: Other: Bilateral extremity swollen including upper extremity and lower extremity Psych: Other: Appropriate mood and affect, pleasant and cooperative Objective Data Vital Signs Vital Signs: Vital Signs - 24 hr 07/20/25 17:40 07/20/25 18:00 07/20/25 19:02 Temperature 97.9 F Pulse Rate 81 78 76 Respiratory Rate 22 H Blood Pressure 130/53 L Pulse Oximetry 96 Oxygen Delivery Oxygen Flow Rate 07/20/25 20:00 07/20/25 22:00 07/20/25 23:20 Temperature 98.0 F Pulse Rate 75 71 74 Respiratory Rate 18 Blood Pressure 110/58 L Pulse Oximetry 97 Oxygen Delivery Oxygen Flow Rate 07/21/25 00:00 07/21/25 02:00 07/21/25 04:00 Temperature Pulse Rate 73 72 69 Respiratory Rate Blood Pressure Pulse Oximetry Oxygen Delivery Oxygen Flow Rate 07/21/25 06:00 07/21/25 07:35 07/21/25 08:00 Temperature 97.8 F Pulse Rate 71 70 Respiratory Rate 26 H Blood Pressure 96/61 L Pulse Oximetry 97 96 Oxygen Delivery Nasal Cannula Oxygen Flow Rate 1 07/21/25 08:00 07/21/25 08:31 07/21/25 08:31 Temperature 97.9 F Pulse Rate 74 73 Respiratory Rate 18 Blood Pressure 93/34 L Pulse Oximetry Oxygen Delivery Oxygen Flow Rate 2 07/21/25 08:40 07/21/25 09:00 07/21/25 09:15 Temperature Pulse Rate 71 71 72 Respiratory Rate Blood Pressure 91/39 L 92/38 L 103/70 Pulse Oximetry Oxygen Delivery Oxygen Flow Rate 07/21/25 09:30 07/21/25 09:45 07/21/25 10:00 Temperature Pulse Rate 76 72 73 Respiratory Rate Blood Pressure 93/35 L 90/37 L 91/39 L Pulse Oximetry Oxygen Delivery Oxygen Flow Rate 07/21/25 10:00 07/21/25 10:15 07/21/25 10:30 Temperature Pulse Rate 75 74 77 Respiratory Rate Blood Pressure 90/41 L 96/41 L Pulse Oximetry Oxygen Delivery Oxygen Flow Rate 07/21/25 10:45 07/21/25 11:00 07/21/25 11:15 Temperature Pulse Rate 73 74 76 Respiratory Rate Blood Pressure 94/37 L 100/42 L 98/43 L Pulse Oximetry Oxygen Delivery Oxygen Flow Rate 07/21/25 11:30 07/21/25 11:45 07/21/25 12:00 Temperature Pulse Rate 74 75 76 Respiratory Rate Blood Pressure 88/42 L 91/42 L 94/42 L Pulse Oximetry Oxygen Delivery Oxygen Flow Rate 07/21/25 12:00 07/21/25 12:13 07/21/25 12:16 Temperature 98.2 F Pulse Rate 80 78 75 Respiratory Rate 18 Blood Pressure 114/44 L 117/45 L Pulse Oximetry Oxygen Delivery Oxygen Flow Rate 07/21/25 14:00 07/21/25 16:05 Temperature 97.9 F Pulse Rate 83 84 Respiratory Rate 24 H Blood Pressure 122/47 L Pulse Oximetry 98 Oxygen Delivery Oxygen Flow Rate Intake/Output Intake/Output: Intake & Output 07/18/25 07/19/25 07/20/25 07/21/25 23:59 23:59 23:59 23:59 Intake Total 3580 451 650 390 Output Total 3250 350 2175 1050 Balance 330 101 -1525 -660 Meds/Results Medications: Active Medications Generic Name Dose Route Start Last Admin Trade Name Freq PRN Reason Stop Dose Admin Acetaminophen 1,000 mg 07/16/25 09:58 07/18/25 16:13 Acetaminophen 500 Mg Tablet PO 1,000 mg Q6H PRN Administration Fever Acetaminophen 500 mg 07/19/25 14:13 Acetaminophen 500 Mg Tablet PO Q6H PRN Pain Rated 1-3 Albuterol/Ipratropium 3 ml 07/17/25 20:40 07/20/25 00:58 Ipratropium 0.5 Mg/Albuterol Sulfate 2.5 Mg Ampul.Neb 3 Ml INHALATION 3 ml Q6HRT PRN Administration wheezing Amiodarone HCl 200 mg 07/15/25 02:30 07/21/25 13:48 Amiodarone Hcl 200 Mg Tablet PO 200 mg DAILY SALMA Administration Carvedilol 12.5 mg 07/15/25 09:00 07/21/25 09:00 Carvedilol 12.5 Mg Tablet PO Not Given BID SALMA Dextrose 12.5 gm 07/15/25 01:20 Dextrose 50% 25 Gm/50 Ml Syringe IV PUSH PRN PRN Hypoglycemia Protocol Epoetin Sd-epbx 10,000 units 07/18/25 09:00 07/20/25 12:00 Epoetin Sd-Epbx 10,000 Units/Ml Vial IV PUSH 10,000 units MOWEFR@09 SALMA Administration Glucagon 1 mg 07/15/25 01:20 Glucagon For Inj 1 Mg Vial IM PRN PRN Hypoglycemia Protocol Glucose 15 gm 07/15/25 01:20 Glucose Oral Gel 15 Gm Of Glucse In 37.5 Gm Tube PO PRN PRN Hypoglycemia Protocol Hydromorphone HCl 1 mg 07/19/25 14:13 Hydromorphone Hcl Inj (*Crx) 1 Mg/Ml Syr IV PUSH Q2H PRN Breakthrough Pain Rated 7-10 or NPO Hydromorphone HCl 0.5 mg 07/19/25 14:13 Hydromorphone Hcl Inj (*Crx) 1 Mg/Ml Syr IV PUSH Q2H PRN Breakthrough Pain Rated 4-6 or NPO Dextrose 1,000 mls @ 100 mls/hr 07/15/25 01:20 Dextrose 5% 1,000 Ml IVPB PRN PRN Hypoglycemia Protocol Albumin Human 50 mls @ 999 mls/hr 07/15/25 15:32 Albutein IVPB 08/14/25 15:31 Q10M PRN HYPOTENSION Piperacillin Sod/Tazobactam 50 mls @ 100 mls/hr 07/20/25 14:00 07/21/25 13:48 Sod 2.25 gm/ Sodium Chloride IVPB 100 mls/hr Q8H SALMA Administration Insulin Aspart 3 - 6 units 07/15/25 08:00 07/21/25 13:40 Insulin Aspart (*Bkc) 100 Units/Ml SUB-Q Not Given TIDWM [facility] Protocol Insulin Aspart 1 - 3 units 07/15/25 21:00 07/20/25 22:37 Insulin Aspart (*Bkc) 100 Units/Ml SUB-Q Not Given HS [facility] Protocol Magnesium Hydroxide 30 ml 07/16/25 08:39 Magnesium Hydroxide Susp 30 Ml Udc PO DAILY PRN Constipation Naloxone HCl 0.1 mg 07/19/25 14:13 Naloxone Hcl 0.4 Mg/Ml Vial IV PUSH Q2M PRN Opiate Reversal Oxycodone HCl 2.5 mg 07/19/25 14:13 07/21/25 07:52 Oxycodone Hcl (*Crx) 2.5 Mg Tab Ir PO 2.5 mg Q4H PRN Administration Pain Rated 4-6 Oxycodone HCl 5 mg 07/19/25 14:13 07/20/25 21:57 Oxycodone Hcl (*Crx) 5 Mg Tab Ir PO 5 mg Q4H PRN Administration Pain Rated 7-10 Polyethylene Glycol 17 gm 07/16/25 09:00 07/21/25 14:45 Polyethylene Glycol 3350 17 Gm Powd.Pack PO Not Given QAM SALMA Rivaroxaban 20 mg 07/15/25 17:00 07/17/25 16:55 Rivaroxaban 20 Mg Tablet PO 20 mg On Hold: 07/18/25 10:26 DAILY@1700 SALMA Administration Sodium Chloride 10 ml 07/19/25 22:00 07/21/25 13:49 Central Line Flush IV PUSH 10 ml Q8HR SALMA Administration Sodium Chloride 10 ml 07/19/25 17:03 Central Line Flush IV PUSH PRN PRN with TPN bag changes Sodium Chloride 20 ml 07/19/25 17:03 Central Line Flush IV PUSH PRN PRN after blood draws Sodium Zirconium Cyclosilicate 10 gm 07/15/25 10:00 07/15/25 17:26 Sodium Zirconium Cyclosilicate 10 Gm Powd.Pack PO Not Given On Hold: 07/15/25 15:36 TID@1000,1500,2200 SALMA Radiology Results: ITS Impressions Cervical Spine CT 07/15/25 07:00 IMPRESSION: 1. No acute abnormality of the cervical spine. 2: Severe cervical spondylosis. Head CT 07/15/25 07:03 IMPRESSION: 1. No acute intracranial abnormality. Shoulder X-Ray 07/15/25 07:39 Impression: 1: No acute fracture. Wrist X-Ray 07/15/25 07:40 Impression: 1: No acute fracture. Elbow X-Ray 07/15/25 07:41 Impression: 1: No acute fracture. Renal Ultrasound 07/15/25 13:09 Impression: 1: Unremarkable renal ultrasound. No stones, masses or hydronephrosis. Central Venous Line 07/19/25 13:50 IMPRESSION: Fluoroscopy used during portacatheter placement. Chest X-Ray 07/19/25 18:52 IMPRESSION: 1: No acute cardiopulmonary disease. 2: Prominent mediastinum. Consider lymphadenopathy. Scrotum Ultrasound 07/20/25 19:05 IMPRESSION: 1. Diffuse scrotal wall thickening. Consider an infectious/inflammatory process such as cellulitis, lymphedema or systemic causes like cirrhosis, nephrotic sy ndrome or generalized edema. Soft Tissue Ultrasound 07/20/25 19:10 Impression: 1: Area of superficial venous thrombosis corresponds to the area of left arm swelling. Labs Labs: Laboratory Results - last 24 hr 07/20/25 07/21/25 07/21/25 20:31 05:44 07:39 WBC 16.1 H RBC 3.04 L Hgb 9.3 L Hct 30.1 L MCV 99.0 MCH 30.6 MCHC 30.9 L RDW 14.1 Plt Count 195 MPV 10.2 Immature Gran % (Auto) 7.9 H Neut % (Auto) 73.0 Lymph % (Auto) 6.5 L [place] % (Auto) 9.7 H Eos % (Auto) 2.5 Baso % (Auto) 0.4 Lymph # (Auto) 1.05 [place] # (Auto) 1.6 H Eos # (Auto) 0.4 H Baso # (Auto) 0.1 Abs Immat Gran (auto) 1.27 H Absolute Neuts (auto) 11.8 H Absolute Nucleated RBC 0.040 H Nucleated RBC % 0.2 Sodium 127 L Potassium 5.1 H Chloride 95 L Carbon Dioxide 24 Anion Gap 8 BUN 83 H D Creatinine 5.27 H Estim Creat Clear Calc 22 Estimated GFR 11 L Glucose 136 H POC Capillary Glucose 161 H 123 H Calcium 7.2 L Phosphorus 9.2 H Magnesium 2.3 Total Bilirubin 0.5 AST 361 H ALT 131 H Alkaline Phosphatase 109 Total Creatine Kinase 66566 H Total Protein 5.4 L Albumin 2.7 L 07/21/25 07/21/25 12:38 15:38 WBC RBC Hgb Hct MCV MCH MCHC RDW Plt Count MPV Immature Gran % (Auto) Neut % (Auto) Lymph % (Auto) [place] % (Auto) Eos % (Auto) Baso % (Auto) Lymph # (Auto) [place] # (Auto) Eos # (Auto) Baso # (Auto) Abs Immat Gran (auto) Absolute Neuts (auto) Absolute Nucleated RBC Nucleated RBC % Sodium Potassium Chloride Carbon Dioxide Anion Gap BUN Creatinine Estim Creat Clear Calc Estimated GFR Glucose POC Capillary Glucose 126 H 211 H Calcium Phosphorus Magnesium Total Bilirubin AST ALT Alkaline Phosphatase Total Creatine Kinase Total Protein Albumin Quality VTE Prophylaxis VTE prophylaxis: mechanical ordered
[2025-07-22] VITALS (19 sets, daily range): BP systolic 91–125; BP diastolic 32–59; PULSE 65–97; RESP 14–24; TEMP 36.6–37.2; O2SAT 86–100
[2025-07-22 04:37] LABS: Hematocrit 28.6 % (42.0-52.0); Hemoglobin 9.0 g/dL (14.0-18.0); Mean Corpuscular HGB Conc 31.5 g/dl (32-36); Mean Corpuscular Hemoglobin 31.1 pg (26-34); Mean Corpuscular Volume 99.0 fl (80-100); Platelet Count Result 195 k/mm3 (150-375); Red Blood Count 2.89 M/mm3 (4.6-6.20); White Blood Count 17.2 K/mm3 (4.5-10.0)
[2025-07-22 04:51] LABS: Alanine Aminotransferase 77 U/L (6-50); Albumin Level 2.4 g/dL (3.5-5.1); Alkaline Phosphatase 77 U/L (38-126); Anion Gap 7 mmol/L (4-12); Aspartate Amino Transferase 227 U/L (17-59); Bilirubin,Total 0.4 mg/dL (0.2-1.3); Blood Urea Nitrogen 65 mg/dL (9-20); Calcium 7.6 mg/dL (8.4-10.2); Carbon Dioxide 25 mmol/L (22-30); Chloride 98 mmol/L (98-107); Estimated CRCL calculation 25 ml/min; Estimated Glomerular Filt Rate 13; Glucose 147 mg/dL (65-110); Magnesium 2.3 mg/dL (1.6-2.3); Potassium 4.7 mmol/L (3.4-5.0); Sodium 130 mmol/L (137-145); Total Protein 5.1 g/dL (6.3-8.2)
[2025-07-22 04:59] LABS: Anisocytosis 2+; Band Neutrophils Percent 3 % (0-6); Eosinophils Absolute Manual 0.68 K/mm3 (0.02-0.50); Eosinophils Percent Manual 4 % (0-4); Lymphocytes Absolute Manual 2.40 K/mm3 (1.1-4.5); Lymphocytes Percent Manual 14.0 % (18-44); Microcytosis 1+ (NORMAL); Monocytes Absolute Manual 1.20 K/mm3 (0.1-0.90); Monocytes Percent Manual 7 % (3-9); Neutrophils Absolute Manual 12.90 K/mm3 (1.3-6.7); Neutrophils Percent Manual 72 % (46-73); Schistocytes None Seen; Smudge Cells PRESENT; Total Cells Counted 100
[2025-07-22 05:27] LABS: Creatine Kinase 9152 U/L (55-170)
[2025-07-22] MEDS: PIPERACILLIN/TAZOBACTAM SOD 2.25 GM in SODIUM CHLORIDE 0.9% IV 50 ML 100 ML IVPB ×3 (06:51→21:20)
[2025-07-22] MEDS: CENTRAL LINE FLUSH 10 ML IV PUSH ×3 (06:51→21:20)
[2025-07-22] MEDS: ALBUMIN HUMAN 25% 25 GM/100 ML 100 ML IVPB (09:10)
[2025-07-22] MEDS: AMIODARONE HCL 200 MG TABLET PO (09:21)
--- NOTE | 2025-07-22 09:32 | P.PNNP_ITS ---
Progress Note: A&P Assessment and Plan (1) Acute kidney injury: Code(s): N17.9 - Acute kidney failure, unspecified Status: Acute Assessment and Plan: * as noted by admission labs * progressively worsening as noted by trend of labs since hospitalization began * was also complicated by persistent hyperkalemia unresponsive to medical therapy and declining UOP * baseline creatinine normal: * 1.16mg/dL in October 2024 (by outpatient labs from PCP) * 1.30mg/dL in October 2022 ([facility]) * multifactorial etiology: * rhabdomyolysis * LAURY-I use prior to admission * diuretic use (lasix + spironolactone) prior to admission * prerenal factors(?) * infection/early sepsis(?) * other(?) * evaluation to date noted: * prerenal urine electrolytes * urine eosinophils negative * CPK as already noted * mild proteinuria * renal ultrasound without obstrution * still with poor urine output and noted intradialytic rise in BUN/creatinine/K+ * s/p tunneled HD catheter placement (on 07/19/25) * HD tomorrow * may need to consider at HD at least 4x/week treatments for clearance and electrolyte control at least while hospitalized * follow trend of repeat labs and UOP for to assess for potential renal recovery (2) Hyperkalemia: Code(s): E87.5 - Hyperkalemia Status: Acute Assessment and Plan: * recurrent since admission * poor response to medical management despite multiple rounds of therapy to date * better control with dialysis * follow trend of repeat K+ levels (3) Rhabdomyolysis: Code(s): M62.82 - Rhabdomyolysis Status: Acute Assessment and Plan: * as noted by elevated CPK * likely related to prolonged downtime from fall * contributing to hyperkalemia and KAITLIN * CPK finally downtrending today (on 07/21) (4) Leukocytosis: Qualifiers: Leukocytosis type: unspecified Qualified Code(s): D72.829 - Elevated white blood cell count, unspecified Code(s): D72.829 - Elevated white blood cell count, unspecified Status: Acute Assessment and Plan: * initial concern was sepsis given associated lactic acidosis, tachycardia, tachypnea on admission * Infectious Disease consultation/recommendations noted * potential sources noted: * scrotal cellulitis * right arm hematoma * constipation * pneumonia * tinea cruris * elevated CPK * on antibiotics as outlined * follow culture data * follow trend of hemodynamics (5) Anemia: Code(s): D64.9 - Anemia, unspecified Status: Acute Assessment and Plan: * due to previous IVF hydration, KAITLIN/ARF, and trauma/hematomas * Epogen with HD * follow trend of H/H (6) Hyponatremia: Code(s): E87.1 - Hypo-osmolality and hyponatremia Status: Acute Assessment and Plan: * acute (on chronic?) * noted as far back as October 2022 * however, on PCP labs in October 2024, sodium was 138mmol/L * suspect due more related to KAITLIN/ARF and diminished urine output/anuria * TSH and cortisol okay * follow trend of sodium level (7) Atrial fibrillation and flutter: Code(s): I48.91 - Unspecified atrial fibrillation; I48.92 - Unspecified atrial flutter Status: Chronic Assessment and Plan: * paroxysmal in nature * on amiodarone * on anticoagulation - ok to resume? * however, would recommend coumadin or eliquis as opposed to xarelto given his KAITLIN (8) Transaminitis: Code(s): R74.01 - Elevation of levels of liver transaminase levels Status: Acute Assessment and Plan: * presumably related to rhabdomyolysis * holding statin * continue follow trend of LFTs as surrogate for the rhabdo (because this CK is so high) * slow improvement noted (9) Hypertension: Code(s): I10 - Essential (primary) hypertension Status: Chronic Assessment and Plan: * reasonable control * running on the soft side more recently * follow trend of hemodynamics (10) Diabetes: Code(s): E11.9 - Type 2 diabetes mellitus without complications Status: Chronic Assessment and Plan: * follow accu-cheks * glycemic control per hospitalist Will continue to follow. L Subjective Date/time seen: 07/22/25 09:32 Interval history: Follow-up for acute kidney injury/acute renal failure and hyperkalemia. Tolerated dialysis treatment yesterday without any issues or problems although fluid removal was limited by hemodynamics/blood pressure; anuric in the last 24 hours although CPK finally trending down as are LFTs; no apparent distress voiced at the time of my visit; no other issues/events overnight or earlier this morning. Exam 2 Narrative: General: elderly but large and WD/WN male in NAD Heart: normal S1 and S2; no rub Lungs: clear anteriorly; decreased at bases Abdomen: soft, nontender, nondistended, positive bowel sounds Extremities: no cyanosis or clubbing; 1+ edema (upper and lower extremities) Skin: venous stasis changes over BLEs noted Objective Data Vital Signs Vital Signs: Vital Signs Temp Pulse Resp BP Pulse Ox O2 Del Method O2 Flow Rate 07/22/25 09:21 80 07/22/25 08:00 74 07/22/25 08:00 96 Nasal Cannula 4 07/22/25 07:56 98.9 F 77 18 105/41 L 97 07/22/25 06:00 74 07/22/25 04:00 97 07/22/25 04:00 94 Nasal Cannula 2 07/22/25 04:00 97.8 F 76 22 H 96/37 L 96 07/22/25 02:00 84 07/22/25 00:00 79 07/22/25 00:00 97.8 F 79 22 H 98/35 L 94 07/22/25 00:00 94 Nasal Cannula 3 07/21/25 22:00 84 07/21/25 20:00 83 07/21/25 20:00 87 L Nasal Cannula 2 07/21/25 20:00 97.7 F 84 22 H 93/37 L 90 07/21/25 18:00 86 07/21/25 17:56 84 Intake/Output Intake/Output: Intake & Output 07/19/25 07/20/25 07/21/25 07/22/25 23:59 23:59 23:59 23:59 Intake Total 451 281 744 5298 Output Total 350 2175 1100 0 Balance 101 -1525 -370 1120 Meds/Results Medications: Active Medications Generic Name Dose Route Start Last Admin Trade Name Freq PRN Reason Stop Dose Admin Acetaminophen 1,000 mg 07/16/25 09:58 07/18/25 16:13 Acetaminophen 500 Mg Tablet PO 1,000 mg Q6H PRN Administration Fever Acetaminophen 500 mg 07/19/25 14:13 Acetaminophen 500 Mg Tablet PO Q6H PRN Pain Rated 1-3 Albuterol/Ipratropium 3 ml 07/17/25 20:40 07/20/25 00:58 Ipratropium 0.5 Mg/Albuterol Sulfate 2.5 Mg Ampul.Neb 3 Ml INHALATION 3 ml Q6HRT PRN Administration wheezing Amiodarone HCl 200 mg 07/15/25 02:30 07/22/25 09:21 Amiodarone Hcl 200 Mg Tablet PO 200 mg DAILY SALMA Administration Bisacodyl 5 mg 07/22/25 13:35 07/22/25 14:42 Bisacodyl 5 Mg Tablet Ec PO 5 mg QAM SALMA Administration Carvedilol 12.5 mg 07/15/25 09:00 07/22/25 09:21 Carvedilol 12.5 Mg Tablet PO 12.5 mg BID SALMA Administration Dextrose 12.5 gm 07/15/25 01:20 Dextrose 50% 25 Gm/50 Ml Syringe IV PUSH PRN PRN Hypoglycemia Protocol Glucagon 1 mg 07/15/25 01:20 Glucagon For Inj 1 Mg Vial IM PRN PRN Hypoglycemia Protocol Glucose 15 gm 07/15/25 01:20 Glucose Oral Gel 15 Gm Of Glucse In 37.5 Gm Tube PO PRN PRN Hypoglycemia Protocol Hydromorphone HCl 1 mg 07/19/25 14:13 Hydromorphone Hcl Inj (*Crx) 1 Mg/Ml Syr IV PUSH Q2H PRN Breakthrough Pain Rated 7-10 or NPO Hydromorphone HCl 0.5 mg 07/19/25 14:13 Hydromorphone Hcl Inj (*Crx) 1 Mg/Ml Syr IV PUSH Q2H PRN Breakthrough Pain Rated 4-6 or NPO Dextrose 1,000 mls @ 100 mls/hr 07/15/25 01:20 Dextrose 5% 1,000 Ml IVPB PRN PRN Hypoglycemia Protocol Albumin Human 50 mls @ 999 mls/hr 07/15/25 15:32 Albutein IVPB 08/14/25 15:31 Q10M PRN HYPOTENSION Piperacillin Sod/Tazobactam 50 mls @ 100 mls/hr 07/20/25 14:00 07/22/25 14:42 Sod 2.25 gm/ Sodium Chloride IVPB 100 mls/hr Q8H SALMA Administration Insulin Aspart 3 - 6 units 07/15/25 08:00 07/22/25 11:58 Insulin Aspart (*Bkc) 100 Units/Ml SUB-Q Not Given TIDWM SALMA Protocol Insulin Aspart 1 - 3 units 07/15/25 21:00 07/21/25 23:23 Insulin Aspart (*Bkc) 100 Units/Ml SUB-Q Not Given HS [facility] Protocol Linezolid 600 mg 07/22/25 14:00 07/22/25 14:42 Linezolid 600 Mg Tablet PO 600 mg Q12HR SALMA Administration Magnesium Hydroxide 30 ml 07/16/25 08:39 Magnesium Hydroxide Susp 30 Ml Udc PO DAILY PRN Constipation Naloxone HCl 0.1 mg 07/19/25 14:13 Naloxone Hcl 0.4 Mg/Ml Vial IV PUSH Q2M PRN Opiate Reversal Oxycodone HCl 2.5 mg 07/19/25 14:13 07/21/25 21:03 Oxycodone Hcl (*Crx) 2.5 Mg Tab Ir PO 2.5 mg Q4H PRN Administration Pain Rated 4-6 Oxycodone HCl 5 mg 07/19/25 14:13 07/22/25 15:52 Oxycodone Hcl (*Crx) 5 Mg Tab Ir PO 5 mg Q4H PRN Administration Pain Rated 7-10 Polyethylene Glycol 17 gm 07/16/25 09:00 07/22/25 09:22 Polyethylene Glycol 3350 17 Gm Powd.Pack PO 17 gm QAM [facility] Administration Rivaroxaban 20 mg 07/15/25 17:00 07/17/25 16:55 Rivaroxaban 20 Mg Tablet PO 20 mg On Hold: 07/18/25 10:26 DAILY@1700 [facility] Administration Sodium Chloride 10 ml 07/19/25 22:00 07/22/25 14:43 Central Line Flush IV PUSH 10 ml Q8HR SALMA Administration Sodium Chloride 10 ml 07/19/25 17:03 Central Line Flush IV PUSH PRN PRN with TPN bag changes Sodium Chloride 20 ml 07/19/25 17:03 Central Line Flush IV PUSH PRN PRN after blood draws Sodium Zirconium Cyclosilicate 10 gm 07/15/25 10:00 07/15/25 17:26 Sodium Zirconium Cyclosilicate 10 Gm Powd.Pack PO Not Given On Hold: 07/15/25 15:36 TID@1000,1500,2200 [facility] Radiology Results: ITS Impressions Cervical Spine CT 07/15/25 07:00 IMPRESSION: 1. No acute abnormality of the cervical spine. 2: Severe cervical spondylosis. Head CT 07/15/25 07:03 IMPRESSION: 1. No acute intracranial abnormality. Shoulder X-Ray 07/15/25 07:39 Impression: 1: No acute fracture. Wrist X-Ray 07/15/25 07:40 Impression: 1: No acute fracture. Elbow X-Ray 07/15/25 07:41 Impression: 1: No acute fracture. Renal Ultrasound 07/15/25 13:09 Impression: 1: Unremarkable renal ultrasound. No stones, masses or hydronephrosis. Central Venous Line 07/19/25 13:50 IMPRESSION: Fluoroscopy used during portacatheter placement. Scrotum Ultrasound 07/20/25 19:05 IMPRESSION: 1. Diffuse scrotal wall thickening. Consider an infectious/inflammatory process such as cellulitis, lymphedema or systemic causes like cirrhosis, nephrotic syndrome or generalized edema. Soft Tissue Ultrasound 07/20/25 19:10 Impression: 1: Area of superficial venous thrombosis corresponds to the area of left arm swelling. Chest X-Ray 07/21/25 21:45 Impression: 1: Left basilar infiltrates may represent atelectasis or pneumonia. Labs Labs: Laboratory Tests 07/22/25 04:31 07/22/25 04:31 Calcium 7.6 L Phosphorus 6.2 H Magnesium 2.3 Total Bilirubin 0.4 AST 227 H ALT 77 H Alkaline Phosphatase 77 Total Creatine Kinase 9152 H Total Protein 5.1 L Albumin 2.4 L Cortisol Baseline 23.90 Microbiology 07/20/25 14:50 Scrotum Gram Stain - Final 07/20/25 14:50 Scrotum Aerobic Culture - Preliminary 07/14/25 22:18 Blood Blood Culture - Final 07/14/25 20:35 Blood Blood Culture - Final
[2025-07-22] MEDS: oxyCODONE HCL (*CRX) 5 MG TAB IR PO ×3 (10:31→21:19)
--- NOTE | 2025-07-22 10:56 | P.PNINF_ITS ---
Progress Note: A&P Assessment and Plan (1) Leukocytosis: Qualifiers: Leukocytosis type: unspecified Qualified Code(s): D72.829 - Elevated white blood cell count, unspecified Code(s): D72.829 - Elevated white blood cell count, unspecified Status: Acute (2) Cellulitis of scrotum: Code(s): N49.2 - Inflammatory disorders of scrotum Status: Acute (3) Hematoma of right upper extremity: Code(s): S40.021A - Contusion of right upper arm, initial encounter Status: Acute (4) Anemia: Code(s): D64.9 - Anemia, unspecified Status: Acute (5) Rhabdomyolysis: Qualifiers: Rhabdomyolysis type: non-traumatic Qualified Code(s): M62.82 - Rhabdomyolysis Code(s): M62.82 - Rhabdomyolysis Status: Acute (6) Acute kidney injury: Code(s): N17.9 - Acute kidney failure, unspecified Status: Acute (7) Transaminitis: Code(s): R74.01 - Elevation of levels of liver transaminase levels Status: Acute (8) Chronic hyponatremia: Code(s): E87.1 - Hypo-osmolality and hyponatremia Status: Acute (9) Hyperkalemia: Code(s): E87.5 - Hyperkalemia Status: Acute (10) Constipation: Code(s): K59.00 - Constipation, unspecified Status: Acute Plan # Improved but persistent leukocytosis after admission for immobility-associated rhabdomyolysis and KAITLIN with acute renal failure. -- possibly associated with infectious etiology and would consider ongoing scrotal inflammation / cellulitis / abscess/ severe tinea cruris. However, does not clinically appear to be progressive or associated with Tamera's gangrene. Ultrasound of scrotum identifies diffuse wall thickening. No mention of abscess. Wound culture with Gram-positive cocci. -- possibly associated with right arm hematoma, either sterile or secondarily infected. However, no ballotable collection of fluid around the elbow, arm appears to be with generalized swelling, and ultrasound only identifies mild subcutaneous edema in the area of swelling. -- acute anemia with hemoglobin dropped to 6.8 likely contributing to a leukemoid reaction. Acute anemia likely multifactorial and secondary to rehydration and arm hematoma but may need to rule out GI blood loss. Hemoglobin remaining stable at 9.0. -- continued leukemoid triggers such as persistent CPK elevation in the setting of acute rhabdomyolysis. CPK slowly resolving. -- rule out adrenal insufficiency given hyponatremia and hyperkalemia although the latter likely associated with KAITLIN. But a.m. cortisol level within normal limits. -- constipation has been associated with leukocytosis. Patient has not had a bowel movement since 07/17. -- recent chest x-ray with left basilar infiltrate representing atelectasis versus pneumonia. Patient receiving Zosyn. -- no evidence of urinary tract infection. Blood cultures have been negative to date. Plan: -- aerobic and anaerobic cultures with Gram stain ordered for scrotal wound purulent drainage. Results remain pending but Gram stain with Gram-positive cocci. Will add MRSA coverage pending final results. Begin linezolid 600 mg p.o. q.12 hours. -- continue Zosyn pending further scrotal wound culture results. -- continue miconazole powder to scrotum. -- the empiric combination of Zosyn and linezolid would also offer coverage for left base pneumonia. Patient was seen via video telehealth consultation with the assistance of staff. Chart, data, and patient independently reviewed. Patient was located at [facility] while I was located in my [place] office. Received verbal consent from patient. Subjective Date/time seen: 07/22/25 10:56 Interval history: 07/21/2025: Feels better. Right arm decreased swelling. Afebrile with soft blood pressure. White blood cell count decreased today to 16.1 and hemoglobin has remained stable at 9.3. Liver enzymes continue to slowly improved. Slight decrease in CPK. Ultrasound of scrotum failed to identify abscess. Right upper extremity ultrasound failed to identify hematoma. Superficial venous thrombosis seen in the left arm. Denies bowel movement since Friday. 07/22/2025: Afebrile but white blood cell count increased slightly today to 17.2. Hemoglobin remaining stable. Liver enzymes continue to decrease. CK also decreasing. Chest x-ray with left base infiltrate representing atelectasis or pneumonia. Scrotal wound culture remains pending the Gram stain with few Gram-positive cocci. Still has not had a bowel movement since 07/17. Review of Systems Review of Systems: Discomfort to right elbow with dressing changes. No scrotal pain. Remains constipated. All systems reviewed & are unremarkable except as noted in HPI and below Exam Narrative: Awake, alert, appropriate, and interactive. No distress. Patient is obese. No respiratory difficulty. Abdomen is protuberant with overhanging pannus. No panniculitis. Some scrotal swelling with improvement in overall erythema since admission; however, purulent drainage noted from skin breakdown site. Diffuse right upper extremity swelling--slightly better. PICC or catheter present in right upper extremity. Areas of bruising /ecchymosis noted. No ballotable fluid collection apparent around elbow- -just diffuse arm swelling--again improved. No rash. Has chronic hyperkeratosis involving arms and legs. Objective Data Vital Signs Vital Signs: Vital Signs - 24 hr 07/21/25 11:00 07/21/25 11:15 07/21/25 11:30 Temperature Pulse Rate 74 76 74 Respiratory Rate Blood Pressure 100/42 L 98/43 L 88/42 L Pulse Oximetry Oxygen Delivery Oxygen Flow Rate 07/21/25 11:45 07/21/25 12:00 07/21/25 12:00 Temperature Pulse Rate 75 76 80 Respiratory Rate Blood Pressure 91/42 L 94/42 L Pulse Oximetry Oxygen Delivery Oxygen Flow Rate 07/21/25 12:13 07/21/25 12:16 07/21/25 14:00 Temperature 98.2 F Pulse Rate 78 75 83 Respiratory Rate 18 Blood Pressure 114/44 L 117/45 L Pulse Oximetry Oxygen Delivery Oxygen Flow Rate 07/21/25 16:00 07/21/25 16:00 07/21/25 16:05 Temperature 97.9 F Pulse Rate 86 84 Respiratory Rate 24 H Blood Pressure 122/47 L Pulse Oximetry 96 98 Oxygen Delivery Room Air Oxygen Flow Rate 07/21/25 17:56 07/21/25 18:00 07/21/25 20:00 Temperature 97.7 F Pulse Rate 84 86 84 Respiratory Rate 22 H Blood Pressure 93/37 L Pulse Oximetry 90 Oxygen Delivery Oxygen Flow Rate 07/21/25 20:00 07/21/25 20:00 07/21/25 22:00 Temperature Pulse Rate 83 84 Respiratory Rate Blood Pressure Pulse Oximetry 87 L Oxygen Delivery Nasal Cannula Oxygen Flow Rate 2 07/22/25 00:00 07/22/25 00:00 07/22/25 00:00 Temperature 97.8 F Pulse Rate 79 79 Respiratory Rate 22 H Blood Pressure 98/35 L Pulse Oximetry 94 94 Oxygen Delivery Nasal Cannula Oxygen Flow Rate 3 07/22/25 02:00 07/22/25 04:00 07/22/25 04:00 Temperature 97.8 F Pulse Rate 84 76 Respiratory Rate 22 H Blood Pressure 96/37 L Pulse Oximetry 96 94 Oxygen Delivery Nasal Cannula Oxygen Flow Rate 2 07/22/25 04:00 07/22/25 06:00 07/22/25 07:56 Temperature 98.9 F Pulse Rate 97 74 77 Respiratory Rate 18 Blood Pressure 105/41 L Pulse Oximetry 97 Oxygen Delivery Oxygen Flow Rate 07/22/25 09:21 07/22/25 09:21 07/22/25 10:34 Temperature Pulse Rate 80 80 Respiratory Rate Blood Pressure 113/40 L Pulse Oximetry Oxygen Delivery Oxygen Flow Rate Intake/Output Intake/Output: Intake & Output 07/19/25 07/20/25 07/21/25 07/22/25 23:59 23:59 23:59 23:59 Intake Total 451 650 730 830 Output Total 350 2175 1100 0 Balance 101 -1525 -370 830 Meds/Results Medications: Active Medications Generic Name Dose Route Start Last Admin Trade Name Freq PRN Reason Stop Dose Admin Acetaminophen 1,000 mg 07/16/25 09:58 07/18/25 16:13 Acetaminophen 500 Mg Tablet PO 1,000 mg Q6H PRN Administration Fever Acetaminophen 500 mg 07/19/25 14:13 Acetaminophen 500 Mg Tablet PO Q6H PRN Pain Rated 1-3 Albuterol/Ipratropium 3 ml 07/17/25 20:40 07/20/25 00:58 Ipratropium 0.5 Mg/Albuterol Sulfate 2.5 Mg Ampul.Neb 3 Ml INHALATION 3 ml Q6HRT PRN Administration wheezing Amiodarone HCl 200 mg 07/15/25 02:30 07/22/25 09:21 Amiodarone Hcl 200 Mg Tablet PO 200 mg DAILY SALMA Administration Carvedilol 12.5 mg 07/15/25 09:00 07/22/25 09:21 Carvedilol 12.5 Mg Tablet PO 12.5 mg BID SALMA Administration Dextrose 12.5 gm 07/15/25 01:20 Dextrose 50% 25 Gm/50 Ml Syringe IV PUSH PRN PRN Hypoglycemia Protocol Glucagon 1 mg 07/15/25 01:20 Glucagon For Inj 1 Mg Vial IM PRN PRN Hypoglycemia Protocol Glucose 15 gm 07/15/25 01:20 Glucose Oral Gel 15 Gm Of Glucse In 37.5 Gm Tube PO PRN PRN Hypoglycemia Protocol Hydromorphone HCl 1 mg 07/19/25 14:13 Hydromorphone Hcl Inj (*Crx) 1 Mg/Ml Syr IV PUSH Q2H PRN Breakthrough Pain Rated 7-10 or NPO Hydromorphone HCl 0.5 mg 07/19/25 14:13 Hydromorphone Hcl Inj (*Crx) 1 Mg/Ml Syr IV PUSH Q2H PRN Breakthrough Pain Rated 4-6 or NPO Dextrose 1,000 mls @ 100 mls/hr 07/15/25 01:20 Dextrose 5% 1,000 Ml IVPB PRN PRN Hypoglycemia Protocol Albumin Human 50 mls @ 999 mls/hr 07/15/25 15:32 Albutein IVPB 08/14/25 15:31 Q10M PRN HYPOTENSION Piperacillin Sod/Tazobactam 50 mls @ 100 mls/hr 07/20/25 14:00 07/22/25 06:51 Sod 2.25 gm/ Sodium Chloride IVPB 100 mls/hr Q8H SALMA Administration Insulin Aspart 3 - 6 units 07/15/25 08:00 07/22/25 09:08 Insulin Aspart (*Bkc) 100 Units/Ml SUB-Q Not Given TIDWM [facility] Protocol Insulin Aspart 1 - 3 units 07/15/25 21:00 07/21/25 23:23 Insulin Aspart (*Bkc) 100 Units/Ml SUB-Q Not Given HS [facility] Protocol Magnesium Hydroxide 30 ml 07/16/25 08:39 Magnesium Hydroxide Susp 30 Ml Udc PO DAILY PRN Constipation Naloxone HCl 0.1 mg 07/19/25 14:13 Naloxone Hcl 0.4 Mg/Ml Vial IV PUSH Q2M PRN Opiate Reversal Oxycodone HCl 2.5 mg 07/19/25 14:13 07/21/25 21:03 Oxycodone Hcl (*Crx) 2.5 Mg Tab Ir PO 2.5 mg Q4H PRN Administration Pain Rated 4-6 Oxycodone HCl 5 mg 07/19/25 14:13 07/22/25 10:31 Oxycodone Hcl (*Crx) 5 Mg Tab Ir PO 5 mg Q4H PRN Administration Pain Rated 7-10 Polyethylene Glycol 17 gm 07/16/25 09:00 07/22/25 09:22 Polyethylene Glycol 3350 17 Gm Powd.Pack PO 17 gm QAM SALMA Administration Rivaroxaban 20 mg 07/15/25 17:00 07/17/25 16:55 Rivaroxaban 20 Mg Tablet PO 20 mg On Hold: 07/18/25 10:26 DAILY@1700 [facility] Administration Sodium Chloride 10 ml 07/19/25 22:00 07/22/25 06:51 Central Line Flush IV PUSH 10 ml Q8HR SALMA Administration Sodium Chloride 10 ml 07/19/25 17:03 Central Line Flush IV PUSH PRN PRN with TPN bag changes Sodium Chloride 20 ml 07/19/25 17:03 Central Line Flush IV PUSH PRN PRN after blood draws Sodium Zirconium Cyclosilicate 10 gm 07/15/25 10:00 07/15/25 17:26 Sodium Zirconium Cyclosilicate 10 Gm Powd.Pack PO Not Given On Hold: 07/15/25 15:36 TID@1000,1500,2200 [facility] Radiology Results: ITS Impressions Cervical Spine CT 07/15/25 07:00 IMPRESSION: 1. No acute abnormality of the cervical spine. 2: Severe cervical spondylosis. Head CT 07/15/25 07:03 IMPRESSION: 1. No acute intracranial abnormality. Shoulder X-Ray 07/15/25 07:39 Impression: 1: No acute fracture. Wrist X-Ray 07/15/25 07:40 Impression: 1: No acute fracture. Elbow X-Ray 07/15/25 07:41 Impression: 1: No acute fracture. Renal Ultrasound 07/15/25 13:09 Impression: 1: Unremarkable renal ultrasound. No stones, masses or hydronephrosis. Central Venous Line 07/19/25 13:50 IMPRESSION: Fluoroscopy used during portacatheter placement. Scrotum Ultrasound 07/20/25 19:05 IMPRESSION: 1. Diffuse scrotal wall thickening. Consider an infectious/inflammatory process such as cellulitis, lymphedema or systemic causes like cirrhosis, nephrotic syndrome or generalized edema. Soft Tissue Ultrasound 07/20/25 19:10 Impression: 1: Area of superficial venous thrombosis corresponds to the area of left arm swelling. Chest X-Ray 07/21/25 21:45 Impression: 1: Left basilar infiltrates may represent atelectasis or pneumonia. Labs Labs: Laboratory Results - last 24 hr 07/21/25 07/21/25 07/21/25 12:38 15:38 20:28 WBC RBC Hgb Hct MCV MCH MCHC RDW Plt Count MPV Immature Gran % (Auto) Neut % (Auto) Lymph % (Auto) [place] % (Auto) Eos % (Auto) Baso % (Auto) Lymph # (Auto) [place] # (Auto) Eos # (Auto) Baso # (Auto) Abs Immat Gran (auto) Absolute Neuts (auto) Absolute Nucleated RBC Total Counted Neutrophils % (Manual) Band Neutrophils % Lymphocytes % (Manual) Monocytes % (Manual) Eosinophils % (Manual) Nucleated RBC % Abs Neuts (Manual) Abs Lymphs (Manual) Abs Monocytes (Manual) Absolute Eos (Manual) Smudge Cells Platelet Estimate Clumped Platelets Large Platelets Anisocytosis Microcytosis Schistocytes Sodium Potassium Chloride Carbon Dioxide Anion Gap BUN Creatinine Estim Creat Clear Calc Estimated GFR Glucose POC Capillary Glucose 126 H 211 H 169 H Calcium Phosphorus Magnesium Total Bilirubin AST ALT Alkaline Phosphatase Total Creatine Kinase Total Protein Albumin Cortisol Baseline 07/22/25 07/22/25 04:31 07:09 WBC 17.2 H RBC 2.89 L Hgb 9.0 L Hct 28.6 L MCV 99.0 MCH 31.1 MCHC 31.5 L RDW 14.0 Plt Count 195 MPV 10.0 Immature Gran % (Auto) Not Reportable Neut % (Auto) Not Reportable Lymph % (Auto) Not Reportable [place] % (Auto) Not Reportable Eos % (Auto) Not Reportable Baso % (Auto) Not Reportable Lymph # (Auto) Not Reportable [place] # (Auto) Not Reportable Eos # (Auto) Not Reportable Baso # (Auto) Not Reportable Abs Immat Gran (auto) Not Reportable Absolute Neuts (auto) Not Reportable Absolute Nucleated RBC Not Reportable Total Counted 100 Neutrophils % (Manual) 72 Band Neutrophils % 3 Lymphocytes % (Manual) 14.0 L Monocytes % (Manual) 7 Eosinophils % (Manual) 4 Nucleated RBC % Not Reportable Abs Neuts (Manual) 12.90 H Abs Lymphs (Manual) 2.40 Abs Monocytes (Manual) 1.20 H Absolute Eos (Manual) 0.68 H Smudge Cells Present Platelet Estimate Adequate Clumped Platelets Present Large Platelets Present Anisocytosis 2+ Microcytosis 1+ Schistocytes None seen Sodium 130 L Potassium 4.7 Chloride 98 Carbon Dioxide 25 Anion Gap 7 BUN 65 H D Creatinine 4.62 H Estim Creat Clear Calc 25 Estimated GFR 13 L Glucose 147 H POC Capillary Glucose 163 H Calcium 7.6 L Phosphorus 6.2 H Magnesium 2.3 Total Bilirubin 0.4 AST 227 H ALT 77 H Alkaline Phosphatase 77 Total Creatine Kinase 9152 H Total Protein 5.1 L Albumin 2.4 L Cortisol Baseline 23.90
--- NOTE | 2025-07-22 14:18 | P.PNIM_ITS ---
Progress Note: A&P Assessment and Plan (1) Hypertension: Code(s): I10 - Essential (primary) hypertension Status: Chronic (2) Atrial fibrillation and flutter: Code(s): I48.91 - Unspecified atrial fibrillation; I48.92 - Unspecified atrial flutter Status: Chronic (3) Type 2 diabetes mellitus with hyperglycemia, without long-term current use of insulin: Code(s): E11.65 - Type 2 diabetes mellitus with hyperglycemia Status: Acute (4) Obesity: Code(s): E66.9 - Obesity, unspecified Status: Acute (5) Transaminitis: Code(s): R74.01 - Elevation of levels of liver transaminase levels Status: Acute (6) Acute kidney injury: Code(s): N17.9 - Acute kidney failure, unspecified Status: Acute (7) Lactic acidosis: Code(s): E87.20 - Acidosis, unspecified Status: Acute (8) Acute hyperkalemia: Code(s): E87.5 - Hyperkalemia Status: Acute (9) Hyperkalemia: Code(s): E87.5 - Hyperkalemia Status: Acute (10) Cellulitis of scrotum: Code(s): N49.2 - Inflammatory disorders of scrotum Status: Acute (11) Anemia: Code(s): D64.9 - Anemia, unspecified Status: Acute (12) Leukocytosis: Qualifiers: Leukocytosis type: unspecified Qualified Code(s): D72.829 - Elevated white blood cell count, unspecified Code(s): D72.829 - Elevated white blood cell count, unspecified Status: Acute (13) Sepsis: Qualifiers: Acute renal failure type: unspecified Sepsis acute organ dysfunction status: with acute organ dysfunction Sepsis type: sepsis due to unspecified organism Severe sepsis acute organ dysfunction type: acute renal failure Severe sepsis shock status: without septic shock Qualified Code(s): A41.9 - Sepsis, unspecified organism; R65.20 - Severe sepsis without septic shock; N17.9 - Acute kidney failure, unspecified Code(s): A41.9 - Sepsis, unspecified organism Status: Acute (14) Rhabdomyolysis: Qualifiers: Rhabdomyolysis type: non-traumatic Qualified Code(s): M62.82 - Rhabdomyolysis Code(s): M62.82 - Rhabdomyolysis Status: Acute (15) Decubital ulcer: Qualifiers: Pressure injury location: unspecified location Pressure injury stage: unstageable Qualified Code(s): L89.95 - Pressure ulcer of unspecified site, unstageable Code(s): L89.90 - Pressure ulcer of unspecified site, unspecified stage Status: Acute (16) Hematoma of right upper extremity: Code(s): S40.021A - Contusion of right upper arm, initial encounter Status: Acute Plan 1) Rhabdomyolysis: due to prolonged time down s/p 3L IV fluids in the ER CPK 9152 down from >[id number] Nephrology following trend CK levels continue dialysis per Nephrology (2) Acute kidney injury: due to acute rhabdomyolysis Creatinine 4.62/BUN 65 today Nephrology following Currently receiving dialysis as per Nephrology recommendation (3) Acute hyperkalemia: Sodium 4.7 today Defer to Nephrology for dialysis (4) Sepsis: Patient met sepsis criteria with tachycardia, tachypnea and leukocytosis. Exact source of infection is not known. Leukocytosis could be due to leukemoid reaction verses acute infection. He urine does not appear to be acutely infected. He does have open wounds Obtain scrotal ultrasound, bilateral arm ultrasound Chest x-ray unremarkable Appreciate ID help Currently on Zosyn and Linezolid per ID (5) Type 2 diabetes mellitus with hyperglycemia, without long-term current use of insulin: accu checks avoid hypoglycemia SSI while inpatient (6) Chronic anticoagulation: Xarelto has been on hold (7) Transaminitis: most likely due to rhabdomyolysis or possible sepsis markedly improving AST/ALT 361/131 today hold home statin (8) Hematoma of right upper extremity: Will obtain soft tissue ultrasound for both arms 9. Acute anemia: Status post 1 unit of PRBC Monitor for any bleeding Continue with the erythropoietin Hb 9.0 monitoring Hyponatremia Na 130 Nephrology following Scrotal cellulitis Continue Zosyn and Linezolid Monitor cultures, scrotal gram stain showed positive gram positive cocci 10. Code status: Full 11. DVT prophylaxis: SCDs 12. Disposition: Pending improvement Subjective Date/time seen: 07/22/25 14:18 Interval history: Comfortable at bedside Review of Systems Review of Systems: 12 systems were reviewed with pertinent positives and negatives per HPI. Except as documented in the HPI, all other systems were reviewed and are negative. All systems reviewed & are unremarkable except as noted in HPI and below Exam Narrative: Weight 188.6 kg BMI 53.4 Const: Other: Morbidly obese, acutely ill-appearing, disheveled HENMT: Other: Mucous membranes are dry Eyes: Other: no scleral icterus, no conjunctival pallor Neck: Other: Large neck circumference, no lymphadenopathy, Resp: Other: Decreased breath sounds bilaterally Cardio: Other: RRR, swollen bilateral arm GI: Other: Soft, nontender, obese, normoactive bowel sounds : Other: Uncircumcised male Correa catheter present, erythematous moist rash bilateral inguinal folds and pannus folds, significant erythema to bilateral scrotum will with ulceration to the right scrotum with eschar (please see nursing documentation for photos in measurements) Urinary Catheter: Urinary Catheter: patent and draining Skin: Other: Candidiasis noted to pannus folds and bilateral inguinal folds, right buttock erythema that is blanchable and extend extending down into the posterior upper thigh with associated skin shearing, and as a ulcer of the left elbow with overlying eschar unable to stage, right scrotal wound Neuro: Other: Alert oriented to person place and time, speech is clear, no facial asymmetry, no localizing neurologic deficits noted the generalized weakness of the extremities, sensation is intact, patient reports hallucinations Extrem: Other: Bilateral extremity swollen including upper extremity and lower extremity Psych: Other: Appropriate mood and affect, pleasant and cooperative Objective Data Vital Signs Vital Signs: Vital Signs - 24 hr 07/21/25 16:00 07/21/25 16:00 07/21/25 16:05 Temperature 97.9 F Pulse Rate 86 84 Respiratory Rate 24 H Blood Pressure 122/47 L Pulse Oximetry 96 98 Oxygen Delivery Room Air Oxygen Flow Rate 07/21/25 17:56 07/21/25 18:00 07/21/25 20:00 Temperature 97.7 F Pulse Rate 84 86 84 Respiratory Rate 22 H Blood Pressure 93/37 L Pulse Oximetry 90 Oxygen Delivery Oxygen Flow Rate 07/21/25 20:00 07/21/25 20:00 07/21/25 22:00 Temperature Pulse Rate 83 84 Respiratory Rate Blood Pressure Pulse Oximetry 87 L Oxygen Delivery Nasal Cannula Oxygen Flow Rate 2 07/22/25 00:00 07/22/25 00:00 07/22/25 00:00 Temperature 97.8 F Pulse Rate 79 79 Respiratory Rate 22 H Blood Pressure 98/35 L Pulse Oximetry 94 94 Oxygen Delivery Nasal Cannula Oxygen Flow Rate 3 07/22/25 02:00 07/22/25 04:00 07/22/25 04:00 Temperature 97.8 F Pulse Rate 84 76 Respiratory Rate 22 H Blood Pressure 96/37 L Pulse Oximetry 96 94 Oxygen Delivery Nasal Cannula Oxygen Flow Rate 2 07/22/25 04:00 07/22/25 06:00 07/22/25 07:56 Temperature 98.9 F Pulse Rate 97 74 77 Respiratory Rate 18 Blood Pressure 105/41 L Pulse Oximetry 97 Oxygen Delivery Oxygen Flow Rate 07/22/25 08:00 07/22/25 09:21 07/22/25 09:21 Temperature Pulse Rate 74 80 80 Respiratory Rate Blood Pressure Pulse Oximetry Oxygen Delivery Oxygen Flow Rate 07/22/25 10:34 07/22/25 11:38 07/22/25 13:02 Temperature 98 F Pulse Rate 77 74 Respiratory Rate 22 H Blood Pressure 113/40 L 118/59 L Pulse Oximetry 96 86 L Oxygen Delivery Oxygen Flow Rate 2 07/22/25 13:03 Temperature Pulse Rate Respiratory Rate Blood Pressure Pulse Oximetry 93 Oxygen Delivery Oxygen Flow Rate 3 Intake/Output Intake/Output: Intake & Output 07/19/25 07/20/25 07/21/25 07/22/25 23:59 23:59 23:59 23:59 Intake Total 451 005 457 7324 Output Total 350 2175 1100 0 Balance 101 -1525 -370 1070 Meds/Results Medications: Active Medications Generic Name Dose Route Start Last Admin Trade Name Richmondq PRN Reason Stop Dose Admin Acetaminophen 1,000 mg 07/16/25 09:58 07/18/25 16:13 Acetaminophen 500 Mg Tablet PO 1,000 mg Q6H PRN Administration Fever Acetaminophen 500 mg 07/19/25 14:13 Acetaminophen 500 Mg Tablet PO Q6H PRN Pain Rated 1-3 Albuterol/Ipratropium 3 ml 07/17/25 20:40 07/20/25 00:58 Ipratropium 0.5 Mg/Albuterol Sulfate 2.5 Mg Ampul.Neb 3 Ml INHALATION 3 ml Q6HRT PRN Administration wheezing Amiodarone HCl 200 mg 07/15/25 02:30 07/22/25 09:21 Amiodarone Hcl 200 Mg Tablet PO 200 mg DAILY SALMA Administration Bisacodyl 5 mg 07/22/25 13:35 Bisacodyl 5 Mg Tablet Ec PO QAM SALMA Carvedilol 12.5 mg 07/15/25 09:00 07/22/25 09:21 Carvedilol 12.5 Mg Tablet PO 12.5 mg BID SALMA Administration Dextrose 12.5 gm 07/15/25 01:20 Dextrose 50% 25 Gm/50 Ml Syringe IV PUSH PRN PRN Hypoglycemia Protocol Glucagon 1 mg 07/15/25 01:20 Glucagon For Inj 1 Mg Vial IM PRN PRN Hypoglycemia Protocol Glucose 15 gm 07/15/25 01:20 Glucose Oral Gel 15 Gm Of Glucse In 37.5 Gm Tube PO PRN PRN Hypoglycemia Protocol Hydromorphone HCl 1 mg 07/19/25 14:13 Hydromorphone Hcl Inj (*Crx) 1 Mg/Ml Syr IV PUSH Q2H PRN Breakthrough Pain Rated 7-10 or NPO Hydromorphone HCl 0.5 mg 07/19/25 14:13 Hydromorphone Hcl Inj (*Crx) 1 Mg/Ml Syr IV PUSH Q2H PRN Breakthrough Pain Rated 4-6 or NPO Dextrose 1,000 mls @ 100 mls/hr 07/15/25 01:20 Dextrose 5% 1,000 Ml IVPB PRN PRN Hypoglycemia Protocol Albumin Human 50 mls @ 999 mls/hr 07/15/25 15:32 Albutein IVPB 08/14/25 15:31 Q10M PRN HYPOTENSION Piperacillin Sod/Tazobactam 50 mls @ 100 mls/hr 07/20/25 14:00 07/22/25 06:51 Sod 2.25 gm/ Sodium Chloride IVPB 100 mls/hr Q8H SALMA Administration Insulin Aspart 3 - 6 units 07/15/25 08:00 07/22/25 11:58 Insulin Aspart (*Bkc) 100 Units/Ml SUB-Q Not Given TIDWM [facility] Protocol Insulin Aspart 1 - 3 units 07/15/25 21:00 07/21/25 23:23 Insulin Aspart (*Bkc) 100 Units/Ml SUB-Q Not Given HS [facility] Protocol Linezolid 600 mg 07/22/25 14:00 Linezolid 600 Mg Tablet PO Q12HR [facility] Magnesium Hydroxide 30 ml 07/16/25 08:39 Magnesium Hydroxide Susp 30 Ml Udc PO DAILY PRN Constipation Naloxone HCl 0.1 mg 07/19/25 14:13 Naloxone Hcl 0.4 Mg/Ml Vial IV PUSH Q2M PRN Opiate Reversal Oxycodone HCl 2.5 mg 07/19/25 14:13 07/21/25 21:03 Oxycodone Hcl (*Crx) 2.5 Mg Tab Ir PO 2.5 mg Q4H PRN Administration Pain Rated 4-6 Oxycodone HCl 5 mg 07/19/25 14:13 07/22/25 10:31 Oxycodone Hcl (*Crx) 5 Mg Tab Ir PO 5 mg Q4H PRN Administration Pain Rated 7-10 Polyethylene Glycol 17 gm 07/16/25 09:00 07/22/25 09:22 Polyethylene Glycol 3350 17 Gm Powd.Pack PO 17 gm QAM SALMA Administration Rivaroxaban 20 mg 07/15/25 17:00 07/17/25 16:55 Rivaroxaban 20 Mg Tablet PO 20 mg On Hold: 07/18/25 10:26 DAILY@1700 SALMA Administration Sodium Chloride 10 ml 07/19/25 22:00 07/22/25 06:51 Central Line Flush IV PUSH 10 ml Q8HR SALMA Administration Sodium Chloride 10 ml 07/19/25 17:03 Central Line Flush IV PUSH PRN PRN with TPN bag changes Sodium Chloride 20 ml 07/19/25 17:03 Central Line Flush IV PUSH PRN PRN after blood draws Sodium Zirconium Cyclosilicate 10 gm 07/15/25 10:00 07/15/25 17:26 Sodium Zirconium Cyclosilicate 10 Gm Powd.Pack PO Not Given On Hold: 07/15/25 15:36 TID@1000,1500,2200 [facility] Radiology Results: ITS Impressions Cervical Spine CT 07/15/25 07:00 IMPRESSION: 1. No acute abnormality of the cervical spine. 2: Severe cervical spondylosis. Head CT 07/15/25 07:03 IMPRESSION: 1. No acute intracranial abnormality. Shoulder X-Ray 07/15/25 07:39 Impression: 1: No acute fracture. Wrist X-Ray 07/15/25 07:40 Impression: 1: No acute fracture. Elbow X-Ray 07/15/25 07:41 Impression: 1: No acute fracture. Renal Ultrasound 07/15/25 13:09 Impression: 1: Unremarkable renal ultrasound. No stones, masses or hydronephrosis. Central Venous Line 07/19/25 13:50 IMPRESSION: Fluoroscopy used during portacatheter placement. Scrotum Ultrasound 07/20/25 19:05 IMPRESSION: 1. Diffuse scrotal wall thickening. Consider an infectious/inflammatory process such as cellulitis, lymphedema or systemic causes like cirrhosis, nephrotic syndrome or generalized edema. Soft Tissue Ultrasound 07/20/25 19:10 Impression: 1: Area of superficial venous thrombosis corresponds to the area of left arm swelling. Chest X-Ray 07/21/25 21:45 Impression: 1: Left basilar infiltrates may represent atelectasis or pneumonia. Labs Labs: Laboratory Results - last 24 hr 07/21/25 07/21/25 07/22/25 15:38 20:28 04:31 WBC 17.2 H RBC 2.89 L Hgb 9.0 L Hct 28.6 L MCV 99.0 MCH 31.1 MCHC 31.5 L RDW 14.0 Plt Count 195 MPV 10.0 Immature Gran % (Auto) Not Reportable Neut % (Auto) Not Reportable Lymph % (Auto) Not Reportable Gaines % (Auto) Not Reportable Eos % (Auto) Not Reportable Baso % (Auto) Not Reportable Lymph # (Auto) Not Reportable Gaines # (Auto) Not Reportable Eos # (Auto) Not Reportable Baso # (Auto) Not Reportable Abs Immat Gran (auto) Not Reportable Absolute Neuts (auto) Not Reportable Absolute Nucleated RBC Not Reportable Total Counted 100 Neutrophils % (Manual) 72 Band Neutrophils % 3 Lymphocytes % (Manual) 14.0 L Monocytes % (Manual) 7 Eosinophils % (Manual) 4 Nucleated RBC % Not Reportable Abs Neuts (Manual) 12.90 H Abs Lymphs (Manual) 2.40 Abs Monocytes (Manual) 1.20 H Absolute Eos (Manual) 0.68 H Smudge Cells Present Platelet Estimate Adequate Clumped Platelets Present Large Platelets Present Anisocytosis 2+ Microcytosis 1+ Schistocytes None seen Sodium 130 L Potassium 4.7 Chloride 98 Carbon Dioxide 25 Anion Gap 7 BUN 65 H D Creatinine 4.62 H Estim Creat Clear Calc 25 Estimated GFR 13 L Glucose 147 H POC Capillary Glucose 211 H 169 H Calcium 7.6 L Phosphorus 6.2 H Magnesium 2.3 Total Bilirubin 0.4 AST 227 H ALT 77 H Alkaline Phosphatase 77 Total Creatine Kinase 9152 H Total Protein 5.1 L Albumin 2.4 L Cortisol Baseline 23.90 07/22/25 07/22/25 07:09 11:27 WBC RBC Hgb Hct MCV MCH MCHC RDW Plt Count MPV Immature Gran % (Auto) Neut % (Auto) Lymph % (Auto) Gaines % (Auto) Eos % (Auto) Baso % (Auto) Lymph # (Auto) Gaines # (Auto) Eos # (Auto) Baso # (Auto) Abs Immat Gran (auto) Absolute Neuts (auto) Absolute Nucleated RBC Total Counted Neutrophils % (Manual) Band Neutrophils % Lymphocytes % (Manual) Monocytes % (Manual) Eosinophils % (Manual) Nucleated RBC % Abs Neuts (Manual) Abs Lymphs (Manual) Abs Monocytes (Manual) Absolute Eos (Manual) Smudge Cells Platelet Estimate Clumped Platelets Large Platelets Anisocytosis Microcytosis Schistocytes Sodium Potassium Chloride Carbon Dioxide Anion Gap BUN Creatinine Estim Creat Clear Calc Estimated GFR Glucose POC Capillary Glucose 163 H 154 H Calcium Phosphorus Magnesium Total Bilirubin AST ALT Alkaline Phosphatase Total Creatine Kinase Total Protein Albumin Cortisol Baseline Quality VTE Prophylaxis VTE prophylaxis: mechanical ordered
[2025-07-22] MEDS: BISACODYL 5 MG TABLET EC PO (14:42)
[2025-07-22] MEDS: LINEZOLID 600 MG TABLET PO ×2 (14:42→23:04)
[2025-07-23] VITALS (30 sets, daily range): BP systolic 92–144; BP diastolic 31–52; PULSE 59–82; RESP 14–24; TEMP 36.1–37; O2SAT 93–99
[2025-07-23 04:11] LABS: Hematocrit 27.0 % (42.0-52.0); Hemoglobin 8.4 g/dL (14.0-18.0); Mean Corpuscular HGB Conc 31.1 g/dl (32-36); Mean Corpuscular Hemoglobin 31.5 pg (26-34); Mean Corpuscular Volume 101.1 fl (80-100); Platelet Count Result 203 k/mm3 (150-375); Red Blood Count 2.67 M/mm3 (4.6-6.20); White Blood Count 17.0 K/mm3 (4.5-10.0)
[2025-07-23 04:39] LABS: Alanine Aminotransferase 59 U/L (6-50); Albumin Level 2.5 g/dL (3.5-5.1); Alkaline Phosphatase 73 U/L (38-126); Anion Gap 7 mmol/L (4-12); Aspartate Amino Transferase 202 U/L (17-59); Bilirubin,Total 0.5 mg/dL (0.2-1.3); Blood Urea Nitrogen 80 mg/dL (9-20); Calcium 7.8 mg/dL (8.4-10.2); Carbon Dioxide 24 mmol/L (22-30); Chloride 97 mmol/L (98-107); Estimated CRCL calculation 20 ml/min; Estimated Glomerular Filt Rate 10; Glucose 125 mg/dL (65-110); Magnesium 2.3 mg/dL (1.6-2.3); Potassium 4.7 mmol/L (3.4-5.0); Sodium 128 mmol/L (137-145); Total Protein 5.1 g/dL (6.3-8.2)
[2025-07-23 05:05] LABS: Band Neutrophils Percent 5 % (0-6); Eosinophils Absolute Manual 0.51 K/mm3 (0.02-0.50); Eosinophils Percent Manual 3 % (0-4); Lymphocytes Absolute Manual 2.55 K/mm3 (1.1-4.5); Lymphocytes Percent Manual 15.0 % (18-44); Metamyelocytes Percent 2 %; Monocytes Absolute Manual 1.19 K/mm3 (0.1-0.90); Monocytes Percent Manual 7 % (3-9); Neutrophils Absolute Manual 12.41 K/mm3 (1.3-6.7); Neutrophils Percent Manual 68 % (46-73); Schistocytes None Seen; Total Cells Counted 100
[2025-07-23 05:11] LABS: Creatine Kinase 5913 U/L (55-170)
[2025-07-23] MEDS: CENTRAL LINE FLUSH 10 ML IV PUSH ×3 (05:25→22:03)
[2025-07-23] MEDS: PIPERACILLIN/TAZOBACTAM SOD 2.25 GM in SODIUM CHLORIDE 0.9% IV 50 ML 100 ML IVPB ×3 (06:15→22:02)
[2025-07-23] MEDS: ACETAMINOPHEN 500 MG TABLET PO ×2 (09:25→15:38)
--- NOTE | 2025-07-23 11:45 | P.PNNP_ITS ---
Progress Note: A&P Assessment and Plan (1) Acute kidney injury: Code(s): N17.9 - Acute kidney failure, unspecified Status: Acute Assessment and Plan: * as noted by admission labs * progressively worsening as noted by trend of labs since hospitalization began * was also complicated by persistent hyperkalemia unresponsive to medical therapy and declining UOP * baseline creatinine normal: * 1.16mg/dL in October 2024 (by outpatient labs from PCP) * 1.30mg/dL in October 2022 ([facility]) * multifactorial etiology: * rhabdomyolysis * LAURY-I use prior to admission * diuretic use (lasix + spironolactone) prior to admission * prerenal factors(?) * infection/early sepsis(?) * other(?) * evaluation to date noted: * prerenal urine electrolytes * urine eosinophils negative * CPK as already noted * mild proteinuria * renal ultrasound without obstrution * urine output still low. He has a Correa catheter in. We can probably remove this and check bladder scans from time to time * s/p tunneled HD catheter placement (on 07/19/25) * HD underway. Next treatment on Friday and will reassess later in the week whether he needs a 4th treatment to be done on Friday again. Now he seems to be need for treatments per week * follow trend of repeat labs and UOP for to assess for potential renal recovery (2) Hyperkalemia: Code(s): E87.5 - Hyperkalemia Status: Acute Assessment and Plan: * recurrent since admission * poor response to medical management despite multiple rounds of therapy to date * better control with dialysis * potassium okay today (3) Rhabdomyolysis: Code(s): M62.82 - Rhabdomyolysis Status: Acute Assessment and Plan: * as noted by elevated CPK * likely related to prolonged downtime from fall * contributing to hyperkalemia and KAITLNI * CPK down to just above 5000 (4) Leukocytosis: Qualifiers: Leukocytosis type: unspecified Qualified Code(s): D72.829 - Elevated white blood cell count, unspecified Code(s): D72.829 - Elevated white blood cell count, unspecified Status: Acute Assessment and Plan: * initial concern was sepsis given associated lactic acidosis, tachycardia, tachypnea on admission * Infectious Disease consultation/recommendations noted * potential sources noted: * scrotal cellulitis * right arm hematoma * constipation * pneumonia * tinea cruris * elevated CPK * on antibiotics as outlined * follow culture data * follow trend of hemodynamics (5) Anemia: Code(s): D64.9 - Anemia, unspecified Status: Acute Assessment and Plan: * due to previous IVF hydration, KAITLIN/ARF, and trauma/hematomas * Epogen with HD * hemoglobin dropped a little bit today. Will increase EPO, and check a reticulocyte count. He is on antibiotics so will not give iron. (6) Hyponatremia: Code(s): E87.1 - Hypo-osmolality and hyponatremia Status: Acute Assessment and Plan: * acute (on chronic?) * noted as far back as October 2022 * however, on PCP labs in October 2024, sodium was 138mmol/L * suspect due more related to KAITLIN/ARF and diminished urine output/anuria * TSH and cortisol okay * follow trend of sodium level (7) Atrial fibrillation and flutter: Code(s): I48.91 - Unspecified atrial fibrillation; I48.92 - Unspecified atrial flutter Status: Chronic Assessment and Plan: * paroxysmal in nature * on amiodarone * on anticoagulation - ok to resume? * however, would recommend coumadin or eliquis as opposed to xarelto given his KAITLIN (8) Transaminitis: Code(s): R74.01 - Elevation of levels of liver transaminase levels Status: Acute Assessment and Plan: * presumably related to rhabdomyolysis * holding statin * continue follow trend of LFTs as surrogate for the rhabdo (because this CK is so high) * slow improvement noted (9) Hypertension: Code(s): I10 - Essential (primary) hypertension Status: Chronic Assessment and Plan: * reasonable control * running on the soft side more recently * follow trend of hemodynamics (10) Diabetes: Code(s): E11.9 - Type 2 diabetes mellitus without complications Status: Chronic Assessment and Plan: * follow accu-cheks * glycemic control per hospitalist Will continue to follow. Subjective Date/time seen: 07/23/25 11:45 Interval history: patient feels good. Swelling is a little better he says on dialysis and tolerating it well. Blood pressure running 110-140. He has not needed albumin yet. He was seen at 10:45 a.m. Exam Narrative: General: WD/WN male in NAD Heart: normal S1 and S2; no rub or gallop Lungs: clear anteriorly; decreased at bases Abdomen: soft, nontender, nondistended, positive bowel sounds Extremities: no cyanosis or clubbing; 1-2+ edema (upper and lower extremities) Skin: venous stasis changes over BLEs noted Objective Data Vital Signs Vital Signs: Vital Signs - 24 hr 07/22/25 12:00 07/22/25 12:00 07/22/25 13:02 Temperature Pulse Rate 73 74 Respiratory Rate Blood Pressure Pulse Oximetry 96 86 L Oxygen Delivery Nasal Cannula Oxygen Flow Rate 2 2 Fraction of Inspired Oxygen 07/22/25 13:03 07/22/25 14:00 07/22/25 16:00 Temperature 98.3 F Pulse Rate 73 71 Respiratory Rate 23 H Blood Pressure 125/32 L Pulse Oximetry 93 100 Oxygen Delivery Oxygen Flow Rate 3 Fraction of Inspired Oxygen 07/22/25 16:00 07/22/25 17:45 07/22/25 20:00 Temperature Pulse Rate 71 76 Respiratory Rate Blood Pressure Pulse Oximetry Oxygen Delivery CPAP Oxygen Flow Rate Fraction of Inspired Oxygen 07/22/25 20:00 07/22/25 20:25 07/22/25 22:30 Temperature Pulse Rate 65 68 Respiratory Rate 24 H Blood Pressure 91/33 L Pulse Oximetry 93 88 L Oxygen Delivery Room Air Oxygen Flow Rate Fraction of Inspired Oxygen 21 07/22/25 22:35 07/23/25 00:00 07/23/25 00:00 Temperature 98 F Pulse Rate 71 64 63 Respiratory Rate 14 18 Blood Pressure 92/31 L Pulse Oximetry 93 94 Oxygen Delivery Autopap Oxygen Flow Rate Fraction of Inspired Oxygen 07/23/25 03:30 07/23/25 04:19 07/23/25 07:48 Temperature 96.9 F L Pulse Rate 62 59 L 64 Respiratory Rate 14 22 H 20 Blood Pressure 98/46 L 118/36 L Pulse Oximetry 97 97 99 Oxygen Delivery Autopap Oxygen Flow Rate Fraction of Inspired Oxygen 07/23/25 08:00 07/23/25 09:38 07/23/25 09:38 Temperature 96.9 F L 96.9 F L Pulse Rate 60 69 69 Respiratory Rate 16 18 Blood Pressure 144/50 H 144/50 H Pulse Oximetry 99 99 Oxygen Delivery Oxygen Flow Rate Fraction of Inspired Oxygen 07/23/25 09:45 07/23/25 10:00 07/23/25 10:15 Temperature Pulse Rate 61 62 66 Respiratory Rate Blood Pressure 127/45 L 130/51 L 134/52 L Pulse Oximetry Oxygen Delivery Oxygen Flow Rate Fraction of Inspired Oxygen 07/23/25 10:30 07/23/25 10:45 07/23/25 11:00 Temperature Pulse Rate 64 65 66 Respiratory Rate Blood Pressure 132/52 L 130/49 L 133/52 L Pulse Oximetry Oxygen Delivery Oxygen Flow Rate Fraction of Inspired Oxygen 07/23/25 11:15 07/23/25 11:31 Temperature Pulse Rate 62 62 Respiratory Rate Blood Pressure 121/48 L 127/45 L Pulse Oximetry Oxygen Delivery Oxygen Flow Rate Fraction of Inspired Oxygen Intake/Output Intake/Output: Intake & Output 07/20/25 07/21/25 07/22/25 07/23/25 23:59 23:59 23:59 23:59 Intake Total 674 468 9061 940 Output Total 2175 1100 50 0 Balance -1525 -370 1410 940 Meds/Results Medications: Active Medications Generic Name Dose Route Start Last Admin Trade Name Freq PRN Reason Stop Dose Admin Acetaminophen 1,000 mg 07/16/25 09:58 07/18/25 16:13 Acetaminophen 500 Mg Tablet PO 1,000 mg Q6H PRN Administration Fever Acetaminophen 500 mg 07/19/25 14:13 07/23/25 09:25 Acetaminophen 500 Mg Tablet PO 500 mg Q6H PRN Administration Pain Rated 1-3 Albuterol/Ipratropium 3 ml 07/17/25 20:40 07/20/25 00:58 Ipratropium 0.5 Mg/Albuterol Sulfate 2.5 Mg Ampul.Neb 3 Ml INHALATION 3 ml Q6HRT PRN Administration wheezing Amiodarone HCl 200 mg 07/15/25 02:30 07/22/25 09:21 Amiodarone Hcl 200 Mg Tablet PO 200 mg DAILY SALMA Administration Bisacodyl 5 mg 07/22/25 13:35 07/22/25 14:42 Bisacodyl 5 Mg Tablet Ec PO 5 mg QAM SALMA Administration Carvedilol 12.5 mg 07/15/25 09:00 07/22/25 17:45 Carvedilol 12.5 Mg Tablet PO 12.5 mg BID SALMA Administration Dextrose 12.5 gm 07/15/25 01:20 Dextrose 50% 25 Gm/50 Ml Syringe IV PUSH PRN PRN Hypoglycemia Protocol Epoetin Sd-epbx 10,000 units 07/23/25 18:39 Epoetin Sd-Epbx 10,000 Units/Ml Vial IV PUSH 07/23/25 18:40 ONCE ONE Glucagon 1 mg 07/15/25 01:20 Glucagon For Inj 1 Mg Vial IM PRN PRN Hypoglycemia Protocol Glucose 15 gm 07/15/25 01:20 Glucose Oral Gel 15 Gm Of Glucse In 37.5 Gm Tube PO PRN PRN Hypoglycemia Protocol Hydromorphone HCl 1 mg 07/19/25 14:13 Hydromorphone Hcl Inj (*Crx) 1 Mg/Ml Syr IV PUSH Q2H PRN Breakthrough Pain Rated 7-10 or NPO Hydromorphone HCl 0.5 mg 07/19/25 14:13 Hydromorphone Hcl Inj (*Crx) 1 Mg/Ml Syr IV PUSH Q2H PRN Breakthrough Pain Rated 4-6 or NPO Dextrose 1,000 mls @ 100 mls/hr 07/15/25 01:20 Dextrose 5% 1,000 Ml IVPB PRN PRN Hypoglycemia Protocol Albumin Human 50 mls @ 999 mls/hr 07/15/25 15:32 Albutein IVPB 08/14/25 15:31 Q10M PRN HYPOTENSION Piperacillin Sod/Tazobactam 50 mls @ 100 mls/hr 07/20/25 14:00 07/23/25 06:50 Sod 2.25 gm/ Sodium Chloride IVPB Infused Q8H SALMA Infusion Insulin Aspart 3 - 6 units 07/15/25 08:00 07/22/25 17:37 Insulin Aspart (*Bkc) 100 Units/Ml SUB-Q Not Given TIDWM [facility] Protocol Insulin Aspart 1 - 3 units 07/15/25 21:00 07/22/25 21:08 Insulin Aspart (*Bkc) 100 Units/Ml SUB-Q Not Given HS [facility] Protocol Linezolid 600 mg 07/22/25 14:00 07/22/25 23:04 Linezolid 600 Mg Tablet PO 600 mg Q12HR SALMA Administration Magnesium Hydroxide 30 ml 07/16/25 08:39 Magnesium Hydroxide Susp 30 Ml Udc PO DAILY PRN Constipation Naloxone HCl 0.1 mg 07/19/25 14:13 Naloxone Hcl 0.4 Mg/Ml Vial IV PUSH Q2M PRN Opiate Reversal Oxycodone HCl 2.5 mg 07/19/25 14:13 07/21/25 21:03 Oxycodone Hcl (*Crx) 2.5 Mg Tab Ir PO 2.5 mg Q4H PRN Administration Pain Rated 4-6 Oxycodone HCl 5 mg 07/19/25 14:13 07/22/25 21:19 Oxycodone Hcl (*Crx) 5 Mg Tab Ir PO 5 mg Q4H PRN Administration Pain Rated 7-10 Polyethylene Glycol 17 gm 07/16/25 09:00 07/22/25 09:22 Polyethylene Glycol 3350 17 Gm Powd.Pack PO 17 gm QAM SALMA Administration Rivaroxaban 20 mg 07/15/25 17:00 07/17/25 16:55 Rivaroxaban 20 Mg Tablet PO 20 mg On Hold: 07/18/25 10:26 DAILY@1700 SALMA Administration Sodium Chloride 10 ml 07/19/25 22:00 07/23/25 05:25 Central Line Flush IV PUSH 10 ml Q8HR SALMA Administration Sodium Chloride 10 ml 07/19/25 17:03 Central Line Flush IV PUSH PRN PRN with TPN bag changes Sodium Chloride 20 ml 07/19/25 17:03 Central Line Flush IV PUSH PRN PRN after blood draws Radiology Results: ITS Impressions Cervical Spine CT 07/15/25 07:00 IMPRESSION: 1. No acute abnormality of the cervical spine. 2: Severe cervical spondylosis. Head CT 07/15/25 07:03 IMPRESSION: 1. No acute intracranial abnormality. Shoulder X-Ray 07/15/25 07:39 Impression: 1: No acute fracture. Wrist X-Ray 07/15/25 07:40 Impression: 1: No acute fracture. Elbow X-Ray 07/15/25 07:41 Impression: 1: No acute fracture. Renal Ultrasound 07/15/25 13:09 Impression: 1: Unremarkable renal ultrasound. No stones, masses or hydronephrosis. Central Venous Line 07/19/25 13:50 IMPRESSION: Fluoroscopy used during portacatheter placement. Scrotum Ultrasound 07/20/25 19:05 IMPRESSION: 1. Diffuse scrotal wall thickening. Consider an infectious/inflammatory process such as cellulitis, lymphedema or systemic causes like cirrhosis, nephrotic syndrome or generalized edema. Soft Tissue Ultrasound 07/20/25 19:10 Impression: 1: Area of superficial venous thrombosis corresponds to the area of left arm swelling. Chest X-Ray 07/22/25 17:19 Impression: 1: Developing left basilar airspace disease, consistent with pneumonia. Labs Labs: Laboratory Results - last 24 hr 07/22/25 07/22/25 07/23/25 16:32 19:47 03:54 WBC 17.0 H RBC 2.67 L Hgb 8.4 L Hct 27.0 L MCV 101.1 H MCH 31.5 MCHC 31.1 L RDW 14.2 Plt Count 203 MPV 9.9 Immature Gran % (Auto) Not Reportable Neut % (Auto) Not Reportable Lymph % (Auto) Not Reportable Otero % (Auto) Not Reportable Eos % (Auto) Not Reportable Baso % (Auto) Not Reportable Lymph # (Auto) Not Reportable Otero # (Auto) Not Reportable Eos # (Auto) Not Reportable Baso # (Auto) Not Reportable Abs Immat Gran (auto) Not Reportable Absolute Neuts (auto) Not Reportable Absolute Nucleated RBC Not Reportable Total Counted 100 Neutrophils % (Manual) 68 Band Neutrophils % 5 Lymphocytes % (Manual) 15.0 L Monocytes % (Manual) 7 Eosinophils % (Manual) 3 Metamyelocytes % 2 Nucleated RBC % Not Reportable Abs Neuts (Manual) 12.41 H Abs Lymphs (Manual) 2.55 Abs Monocytes (Manual) 1.19 H Absolute Eos (Manual) 0.51 H Platelet Estimate Adequate Schistocytes None seen Sodium 128 L Potassium 4.7 Chloride 97 L Carbon Dioxide 24 Anion Gap 7 BUN 80 H D Creatinine 5.84 H Estim Creat Clear Calc 20 Estimated GFR 10 L Glucose 125 H POC Capillary Glucose 134 H 176 H Lactic Acid 0.7 Calcium 7.8 L Phosphorus 7.5 H Magnesium 2.3 Total Bilirubin 0.5 AST 202 H ALT 59 H Alkaline Phosphatase 73 Total Creatine Kinase 5913 H Total Protein 5.1 L Albumin 2.5 L 07/23/25 07:13 WBC RBC Hgb Hct MCV MCH MCHC RDW Plt Count MPV Immature Gran % (Auto) Neut % (Auto) Lymph % (Auto) Otero % (Auto) Eos % (Auto) Baso % (Auto) Lymph # (Auto) Otero # (Auto) Eos # (Auto) Baso # (Auto) Abs Immat Gran (auto) Absolute Neuts (auto) Absolute Nucleated RBC Total Counted Neutrophils % (Manual) Band Neutrophils % Lymphocytes % (Manual) Monocytes % (Manual) Eosinophils % (Manual) Metamyelocytes % Nucleated RBC % Abs Neuts (Manual) Abs Lymphs (Manual) Abs Monocytes (Manual) Absolute Eos (Manual) Platelet Estimate Schistocytes Sodium Potassium Chloride Carbon Dioxide Anion Gap BUN Creatinine Estim Creat Clear Calc Estimated GFR Glucose POC Capillary Glucose 116 H Lactic Acid Calcium Phosphorus Magnesium Total Bilirubin AST ALT Alkaline Phosphatase Total Creatine Kinase Total Protein Albumin
[2025-07-23] MEDS: EPOETIN ALFA-EPBX 20,000 UNITS/ML VIAL 20000 UNITS IV PUSH (14:32)
[2025-07-23] MEDS: SODIUM CHLORIDE 0.9% IV 1,000 ML 400 ML IV CONT (14:34)
[2025-07-23] MEDS: BISACODYL 5 MG TABLET EC PO (15:34)
[2025-07-23] MEDS: LINEZOLID 600 MG TABLET PO ×2 (15:34→22:02)
[2025-07-23] MEDS: AMIODARONE HCL 200 MG TABLET PO (15:35)
--- NOTE | 2025-07-23 15:35 | PM.IMPN ---
Progress Note: A&P Assessment and Plan (1) Hypertension: Code(s): I10 - Essential (primary) hypertension Status: Chronic (2) Atrial fibrillation and flutter: Code(s): I48.91 - Unspecified atrial fibrillation; I48.92 - Unspecified atrial flutter Status: Chronic (3) Type 2 diabetes mellitus with hyperglycemia, without long-term current use of insulin: Code(s): E11.65 - Type 2 diabetes mellitus with hyperglycemia Status: Acute (4) Obesity: Code(s): E66.9 - Obesity, unspecified Status: Acute (5) Transaminitis: Code(s): R74.01 - Elevation of levels of liver transaminase levels Status: Acute (6) Acute kidney injury: Code(s): N17.9 - Acute kidney failure, unspecified Status: Acute (7) Lactic acidosis: Code(s): E87.20 - Acidosis, unspecified Status: Acute (8) Acute hyperkalemia: Code(s): E87.5 - Hyperkalemia Status: Acute (9) Hyperkalemia: Code(s): E87.5 - Hyperkalemia Status: Acute (10) Cellulitis of scrotum: Code(s): N49.2 - Inflammatory disorders of scrotum Status: Acute (11) Anemia: Code(s): D64.9 - Anemia, unspecified Status: Acute (12) Leukocytosis: Qualifiers: Leukocytosis type: unspecified Qualified Code(s): D72.829 - Elevated white blood cell count, unspecified Code(s): D72.829 - Elevated white blood cell count, unspecified Status: Acute (13) Sepsis: Qualifiers: Acute renal failure type: unspecified Sepsis acute organ dysfunction status: with acute organ dysfunction Sepsis type: sepsis due to unspecified organism Severe sepsis acute organ dysfunction type: acute renal failure Severe sepsis shock status: without septic shock Qualified Code(s): A41.9 - Sepsis, unspecified organism; R65.20 - Severe sepsis without septic shock; N17.9 - Acute kidney failure, unspecified Code(s): A41.9 - Sepsis, unspecified organism Status: Acute (14) Rhabdomyolysis: Qualifiers: Rhabdomyolysis type: non-traumatic Qualified Code(s): M62.82 - Rhabdomyolysis Code(s): M62.82 - Rhabdomyolysis Status: Acute (15) Decubital ulcer: Qualifiers: Pressure injury location: unspecified location Pressure injury stage: unstageable Qualified Code(s): L89.95 - Pressure ulcer of unspecified site, unstageable Code(s): L89.90 - Pressure ulcer of unspecified site, unspecified stage Status: Acute (16) Hematoma of right upper extremity: Code(s): S40.021A - Contusion of right upper arm, initial encounter Status: Acute Plan 1) Rhabdomyolysis: due to prolonged time down s/p 3L IV fluids in the ER CPK 5913 down from >[id number] Nephrology following trend CK levels continue dialysis per Nephrology (2) Acute kidney injury: due to acute rhabdomyolysis Creatinine 5.84/BUN 80 today Nephrology following Contineu dialysis per Nephrology (3) Acute hyperkalemia: resolved conitnue dialysis per Nephrology (4) Sepsis: Patient met sepsis criteria with tachycardia, tachypnea and leukocytosis. Exact source of infection is not known. Leukocytosis could be due to leukemoid reaction verses acute infection. He urine does not appear to be acutely infected. He does have open wounds Obtain scrotal ultrasound, bilateral arm ultrasound Chest x-ray unremarkable Appreciate ID help Currently on Zosyn and Linezolid per ID (5) Type 2 diabetes mellitus with hyperglycemia, without long-term current use of insulin: accu checks avoid hypoglycemia SSI while inpatient (6) Chronic anticoagulation: Xarelto has been on hold (7) Transaminitis: most likely due to rhabdomyolysis or possible sepsis markedly improving AST/ALT 361/131 today hold home statin (8) Right superficial venous thrombosis and Left UE edema No anticoagulation indicated Continue Antibiotics for possible Left UE cellulitis Will obtain soft tissue ultrasound for both arms 9. Acute anemia: Status post 1 unit of PRBC Monitor for any bleeding Continue with the erythropoietin Hb 9.0 monitoring Hyponatremia Na 128 Nephrology following Scrotal cellulitis Continue Zosyn and Linezolid Monitor cultures, scrotal gram stain showed positive gram positive cocci 10. Code status: Full 11. DVT prophylaxis: SCDs 12. Disposition: Pending improvement Subjective Date/time seen: 07/23/25 15:35 Interval history: Comfortable at bedside Review of Systems Review of Systems: 12 systems were reviewed with pertinent positives and negatives per HPI. Except as documented in the HPI, all other systems were reviewed and are negative. All systems reviewed & are unremarkable except as noted in HPI and below Exam Narrative: Weight 188.6 kg BMI 53.4 Const: Other: Morbidly obese, acutely ill-appearing, disheveled HENMT: Other: Mucous membranes are dry Eyes: Other: no scleral icterus, no conjunctival pallor Neck: Other: Large neck circumference, no lymphadenopathy, Resp: Other: Decreased breath sounds bilaterally Cardio: Other: RRR, swollen bilateral arm GI: Other: Soft, nontender, obese, normoactive bowel sounds : Other: Uncircumcised male Correa catheter present, erythematous moist rash bilateral inguinal folds and pannus folds, significant erythema to bilateral scrotum will with ulceration to the right scrotum with eschar (please see nursing documentation for photos in measurements) Urinary Catheter: Urinary Catheter: patent and draining Skin: Other: Candidiasis noted to pannus folds and bilateral inguinal folds, right buttock erythema that is blanchable and extend extending down into the posterior upper thigh with associated skin shearing, and as a ulcer of the left elbow with overlying eschar unable to stage, right scrotal wound Neuro: Other: Alert oriented to person place and time, speech is clear, no facial asymmetry, no localizing neurologic deficits noted the generalized weakness of the extremities, sensation is intact, patient reports hallucinations Extrem: Other: Bilateral extremity swollen including upper extremity and lower extremity Psych: Other: Appropriate mood and affect, pleasant and cooperative Objective Data Vital Signs Vital Signs: Vital Signs - 24 hr 07/22/25 16:00 07/22/25 16:00 07/22/25 17:45 Temperature 98.3 F Pulse Rate 71 71 76 Respiratory Rate 23 H Blood Pressure 125/32 L Pulse Oximetry 100 Oxygen Delivery Fraction of Inspired Oxygen 07/22/25 20:00 07/22/25 20:00 07/22/25 20:25 Temperature Pulse Rate 65 68 Respiratory Rate 24 H Blood Pressure 91/33 L Pulse Oximetry 93 Oxygen Delivery CPAP Fraction of Inspired Oxygen 07/22/25 22:30 07/22/25 22:35 07/23/25 00:00 Temperature 98 F Pulse Rate 71 64 Respiratory Rate 14 18 Blood Pressure 92/31 L Pulse Oximetry 88 L 93 94 Oxygen Delivery Room Air Autopap Fraction of Inspired Oxygen 07/23/25 00:00 07/23/25 03:30 07/23/25 04:19 Temperature Pulse Rate 63 62 59 L Respiratory Rate 14 22 H Blood Pressure 98/46 L Pulse Oximetry 97 97 Oxygen Delivery Autopap Fraction of Inspired Oxygen 07/23/25 07:48 07/23/25 08:00 07/23/25 09:38 Temperature 96.9 F L 96.9 F L Pulse Rate 64 60 69 Respiratory Rate 20 16 Blood Pressure 118/36 L 144/50 H Pulse Oximetry 99 99 Oxygen Delivery Fraction of Inspired Oxygen 07/23/25 09:38 07/23/25 09:45 07/23/25 10:00 Temperature 96.9 F L Pulse Rate 69 61 62 Respiratory Rate 18 Blood Pressure 144/50 H 127/45 L 130/51 L Pulse Oximetry 99 Oxygen Delivery Fraction of Inspired Oxygen 07/23/25 10:15 07/23/25 10:30 07/23/25 10:45 Temperature Pulse Rate 66 64 65 Respiratory Rate Blood Pressure 134/52 L 132/52 L 130/49 L Pulse Oximetry Oxygen Delivery Fraction of Inspired Oxygen 07/23/25 11:00 07/23/25 11:15 07/23/25 11:31 Temperature Pulse Rate 66 62 62 Respiratory Rate Blood Pressure 133/52 L 121/48 L 127/45 L Pulse Oximetry Oxygen Delivery Fraction of Inspired Oxygen 07/23/25 11:45 07/23/25 12:00 07/23/25 12:15 Temperature Pulse Rate 63 65 71 Respiratory Rate Blood Pressure 130/49 L 127/52 L 132/50 L Pulse Oximetry Oxygen Delivery Fraction of Inspired Oxygen 07/23/25 12:30 07/23/25 12:45 07/23/25 13:00 Temperature Pulse Rate 68 68 66 Respiratory Rate Blood Pressure 124/49 L 130/51 L 118/41 L Pulse Oximetry Oxygen Delivery Fraction of Inspired Oxygen 07/23/25 13:15 07/23/25 13:30 07/23/25 13:50 Temperature Pulse Rate 68 65 68 Respiratory Rate Blood Pressure 112/39 L 121/50 L 130/46 L Pulse Oximetry Oxygen Delivery Fraction of Inspired Oxygen 07/23/25 14:05 07/23/25 14:05 Temperature 96.9 F L Pulse Rate 68 68 Respiratory Rate 16 Blood Pressure 131/47 L 131/47 L Pulse Oximetry 99 Oxygen Delivery Fraction of Inspired Oxygen Intake/Output Intake/Output: Intake & Output 07/20/25 07/21/25 07/22/25 07/23/25 23:59 23:59 23:59 23:59 Intake Total 035 227 1581 940 Output Total 2175 1100 50 2871 Balance -3461 -863 0294 -6512 Meds/Results Medications: Active Medications Generic Name Dose Route Start Last Admin Trade Name Freq PRN Reason Stop Dose Admin Acetaminophen 1,000 mg 07/16/25 09:58 07/18/25 16:13 Acetaminophen 500 Mg Tablet PO 1,000 mg Q6H PRN Administration Fever Acetaminophen 500 mg 07/19/25 14:13 07/23/25 09:25 Acetaminophen 500 Mg Tablet PO 500 mg Q6H PRN Administration Pain Rated 1-3 Albuterol/Ipratropium 3 ml 07/17/25 20:40 07/20/25 00:58 Ipratropium 0.5 Mg/Albuterol Sulfate 2.5 Mg Ampul.Neb 3 Ml INHALATION 3 ml Q6HRT PRN Administration wheezing Amiodarone HCl 200 mg 07/15/25 02:30 07/22/25 09:21 Amiodarone Hcl 200 Mg Tablet PO 200 mg DAILY SALMA Administration Bisacodyl 5 mg 07/22/25 13:35 07/22/25 14:42 Bisacodyl 5 Mg Tablet Ec PO 5 mg QAM SALMA Administration Carvedilol 12.5 mg 07/15/25 09:00 07/22/25 17:45 Carvedilol 12.5 Mg Tablet PO 12.5 mg BID SALMA Administration Dextrose 12.5 gm 07/15/25 01:20 Dextrose 50% 25 Gm/50 Ml Syringe IV PUSH PRN PRN Hypoglycemia Protocol Glucagon 1 mg 07/15/25 01:20 Glucagon For Inj 1 Mg Vial IM PRN PRN Hypoglycemia Protocol Glucose 15 gm 07/15/25 01:20 Glucose Oral Gel 15 Gm Of Glucse In 37.5 Gm Tube PO PRN PRN Hypoglycemia Protocol Hydromorphone HCl 1 mg 07/19/25 14:13 Hydromorphone Hcl Inj (*Crx) 1 Mg/Ml Syr IV PUSH Q2H PRN Breakthrough Pain Rated 7-10 or NPO Hydromorphone HCl 0.5 mg 07/19/25 14:13 Hydromorphone Hcl Inj (*Crx) 1 Mg/Ml Syr IV PUSH Q2H PRN Breakthrough Pain Rated 4-6 or NPO Dextrose 1,000 mls @ 100 mls/hr 07/15/25 01:20 Dextrose 5% 1,000 Ml IVPB PRN PRN Hypoglycemia Protocol Albumin Human 50 mls @ 999 mls/hr 07/15/25 15:32 Albutein IVPB 08/14/25 15:31 Q10M PRN HYPOTENSION Piperacillin Sod/Tazobactam 50 mls @ 100 mls/hr 07/20/25 14:00 07/23/25 06:50 Sod 2.25 gm/ Sodium Chloride IVPB Infused Q8H [facility] Infusion Insulin Aspart 3 - 6 units 07/15/25 08:00 07/23/25 14:36 Insulin Aspart (*Bkc) 100 Units/Ml SUB-Q Not Given TIDWM [facility] Protocol Insulin Aspart 1 - 3 units 07/15/25 21:00 07/22/25 21:08 Insulin Aspart (*Bkc) 100 Units/Ml SUB-Q Not Given HS [facility] Protocol Linezolid 600 mg 07/22/25 14:00 07/22/25 23:04 Linezolid 600 Mg Tablet PO 600 mg Q12HR SALMA Administration Magnesium Hydroxide 30 ml 07/16/25 08:39 Magnesium Hydroxide Susp 30 Ml Udc PO DAILY PRN Constipation Naloxone HCl 0.1 mg 07/19/25 14:13 Naloxone Hcl 0.4 Mg/Ml Vial IV PUSH Q2M PRN Opiate Reversal Oxycodone HCl 2.5 mg 07/19/25 14:13 07/21/25 21:03 Oxycodone Hcl (*Crx) 2.5 Mg Tab Ir PO 2.5 mg Q4H PRN Administration Pain Rated 4-6 Oxycodone HCl 5 mg 07/19/25 14:13 07/22/25 21:19 Oxycodone Hcl (*Crx) 5 Mg Tab Ir PO 5 mg Q4H PRN Administration Pain Rated 7-10 Polyethylene Glycol 17 gm 07/16/25 09:00 07/22/25 09:22 Polyethylene Glycol 3350 17 Gm Powd.Pack PO 17 gm QAM SALMA Administration Rivaroxaban 20 mg 07/15/25 17:00 07/17/25 16:55 Rivaroxaban 20 Mg Tablet PO 20 mg On Hold: 07/18/25 10:26 DAILY@1700 SALMA Administration Sodium Chloride 10 ml 07/19/25 22:00 07/23/25 05:25 Central Line Flush IV PUSH 10 ml Q8HR SALMA Administration Sodium Chloride 10 ml 07/19/25 17:03 Central Line Flush IV PUSH PRN PRN with TPN bag changes Sodium Chloride 20 ml 07/19/25 17:03 Central Line Flush IV PUSH PRN PRN after blood draws Radiology Results: ITS Impressions Cervical Spine CT 07/15/25 07:00 IMPRESSION: 1. No acute abnormality of the cervical spine. 2: Severe cervical spondylosis. Head CT 07/15/25 07:03 IMPRESSION: 1. No acute intracranial abnormality. Shoulder X-Ray 07/15/25 07:39 Impression: 1: No acute fracture. Wrist X-Ray 07/15/25 07:40 Impression: 1: No acute fracture. Elbow X-Ray 07/15/25 07:41 Impression: 1: No acute fracture. Renal Ultrasound 07/15/25 13:09 Impression: 1: Unremarkable renal ultrasound. No stones, masses or hydronephrosis. Central Venous Line 07/19/25 13:50 IMPRESSION: Fluoroscopy used during portacatheter placement. Scrotum Ultrasound 07/20/25 19:05 IMPRESSION: 1. Diffuse scrotal wall thickening. Consider an infectious/inflammatory process such as cellulitis, lymphedema or systemic causes like cirrhosis, nephrotic syndrome or generalized edema. Soft Tissue Ultrasound 07/20/25 19:10 Impression: 1: Area of superficial venous thrombosis corresponds to the area of left arm swelling. Chest X-Ray 07/22/25 17:19 Impression: 1: Developing left basilar airspace disease, consistent with pneumonia. Labs Labs: Laboratory Results - last 24 hr 07/22/25 07/22/25 07/23/25 16:32 19:47 03:54 WBC 17.0 H RBC 2.67 L Hgb 8.4 L Hct 27.0 L MCV 101.1 H MCH 31.5 MCHC 31.1 L RDW 14.2 Plt Count 203 MPV 9.9 Immature Gran % (Auto) Not Reportable Neut % (Auto) Not Reportable Lymph % (Auto) Not Reportable [place] % (Auto) Not Reportable Eos % (Auto) Not Reportable Baso % (Auto) Not Reportable Lymph # (Auto) Not Reportable [place] # (Auto) Not Reportable Eos # (Auto) Not Reportable Baso # (Auto) Not Reportable Abs Immat Gran (auto) Not Reportable Absolute Neuts (auto) Not Reportable Absolute Nucleated RBC Not Reportable Total Counted 100 Neutrophils % (Manual) 68 Band Neutrophils % 5 Lymphocytes % (Manual) 15.0 L Monocytes % (Manual) 7 Eosinophils % (Manual) 3 Metamyelocytes % 2 Nucleated RBC % Not Reportable Abs Neuts (Manual) 12.41 H Abs Lymphs (Manual) 2.55 Abs Monocytes (Manual) 1.19 H Absolute Eos (Manual) 0.51 H Platelet Estimate Adequate Schistocytes None seen Sodium 128 L Potassium 4.7 Chloride 97 L Carbon Dioxide 24 Anion Gap 7 BUN 80 H D Creatinine 5.84 H Estim Creat Clear Calc 20 Estimated GFR 10 L Glucose 125 H POC Capillary Glucose 134 H 176 H Lactic Acid 0.7 Calcium 7.8 L Phosphorus 7.5 H Magnesium 2.3 Total Bilirubin 0.5 AST 202 H ALT 59 H Alkaline Phosphatase 73 Total Creatine Kinase 5913 H Total Protein 5.1 L Albumin 2.5 L 07/23/25 07/23/25 07:13 14:36 WBC RBC Hgb Hct MCV MCH MCHC RDW Plt Count MPV Immature Gran % (Auto) Neut % (Auto) Lymph % (Auto) [place] % (Auto) Eos % (Auto) Baso % (Auto) Lymph # (Auto) [place] # (Auto) Eos # (Auto) Baso # (Auto) Abs Immat Gran (auto) Absolute Neuts (auto) Absolute Nucleated RBC Total Counted Neutrophils % (Manual) Band Neutrophils % Lymphocytes % (Manual) Monocytes % (Manual) Eosinophils % (Manual) Metamyelocytes % Nucleated RBC % Abs Neuts (Manual) Abs Lymphs (Manual) Abs Monocytes (Manual) Absolute Eos (Manual) Platelet Estimate Schistocytes Sodium Potassium Chloride Carbon Dioxide Anion Gap BUN Creatinine Estim Creat Clear Calc Estimated GFR Glucose POC Capillary Glucose 116 H 99 Lactic Acid Calcium Phosphorus Magnesium Total Bilirubin AST ALT Alkaline Phosphatase Total Creatine Kinase Total Protein Albumin Quality VTE Prophylaxis VTE prophylaxis: mechanical ordered
[2025-07-23] MEDS: oxyCODONE HCL (*CRX) 5 MG TAB IR PO (16:29)
[2025-07-24] VITALS (13 sets, daily range): BP systolic 96–119; BP diastolic 38–50; PULSE 67–78; RESP 16–25; TEMP 35.9–36.4; O2SAT 92–98
[2025-07-24] MEDS: CENTRAL LINE FLUSH 10 ML IV PUSH ×4 (00:32→21:04)
[2025-07-24] MEDS: CENTRAL LINE FLUSH 20 ML IV PUSH (05:17)
[2025-07-24] MEDS: PIPERACILLIN/TAZOBACTAM SOD 2.25 GM in SODIUM CHLORIDE 0.9% IV 50 ML 100 ML IVPB ×3 (05:17→21:03)
[2025-07-24 05:36] LABS: Hematocrit 28.0 % (42.0-52.0); Hemoglobin 8.8 g/dL (14.0-18.0); Immature Reticulocyte Fraction 42.7 % (3.0-15.9); Mean Corpuscular HGB Conc 31.4 g/dl (32-36); Mean Corpuscular Hemoglobin 31.3 pg (26-34); Mean Corpuscular Volume 99.6 fl (80-100); Platelet Count Result 189 k/mm3 (150-375); Red Blood Count 2.81 M/mm3 (4.6-6.20); Reticulocyte Hemoglobin Conten 25.3 pg (28.2-36.6); Reticulocytes Absolute 0.07 10^6/uL (0.02-0.10); White Blood Count 19.3 K/mm3 (4.5-10.0)
[2025-07-24 05:48] LABS: Alanine Aminotransferase 53 U/L (6-50); Albumin Level 2.6 g/dL (3.5-5.1); Alkaline Phosphatase 73 U/L (38-126); Anion Gap 5 mmol/L (4-12); Aspartate Amino Transferase 165 U/L (17-59); Bilirubin,Total 0.6 mg/dL (0.2-1.3); Blood Urea Nitrogen 63 mg/dL (9-20); Calcium 8.2 mg/dL (8.4-10.2); Carbon Dioxide 27 mmol/L (22-30); Chloride 97 mmol/L (98-107); Estimated CRCL calculation 26 ml/min; Estimated Glomerular Filt Rate 13; Glucose 154 mg/dL (65-110); Magnesium 2.2 mg/dL (1.6-2.3); Potassium 4.6 mmol/L (3.4-5.0); Sodium 129 mmol/L (137-145); Total Protein 5.2 g/dL (6.3-8.2)
[2025-07-24 05:58] LABS: Anisocytosis 1+; Band Neutrophils Percent 4 % (0-6); Eosinophils Absolute Manual 0.57 K/mm3 (0.02-0.50); Eosinophils Percent Manual 3 % (0-4); Lymphocytes Absolute Manual 2.50 K/mm3 (1.1-4.5); Lymphocytes Percent Manual 13.0 % (18-44); Monocytes Absolute Manual 0.77 K/mm3 (0.1-0.90); Monocytes Percent Manual 4 % (3-9); Neutrophils Absolute Manual 15.44 K/mm3 (1.3-6.7); Neutrophils Percent Manual 76 % (46-73); Schistocytes None Seen; Total Cells Counted 100
[2025-07-24 06:15] LABS: Creatine Kinase 4126 U/L (55-170)
--- NOTE | 2025-07-24 09:05 | P.PNNP_ITS ---
Progress Note: A&P Assessment and Plan (1) Acute kidney injury: Code(s): N17.9 - Acute kidney failure, unspecified Status: Acute Assessment and Plan: * as noted by admission labs * progressively worsening as noted by trend of labs since hospitalization began * was also complicated by persistent hyperkalemia unresponsive to medical therapy and declining UOP * baseline creatinine normal: * 1.16mg/dL in October 2024 (by outpatient labs from PCP) * 1.30mg/dL in October 2022 ([facility]) * multifactorial etiology: * rhabdomyolysis * LAURY-I use prior to admission * diuretic use (lasix + spironolactone) prior to admission * prerenal factors(?) * infection/early sepsis(?) * other(?) * evaluation to date noted: * prerenal urine electrolytes * urine eosinophils negative * CPK as already noted * mild proteinuria * renal ultrasound without obstrution * urine output still low. He has a Correa catheter in. will order removal if okay with hospitalist * s/p tunneled HD catheter placement (on 07/19/25) * HD will be scheduled for tomorrow. * follow trend of repeat labs and UOP for to assess for potential renal recovery (2) Hyperkalemia: Code(s): E87.5 - Hyperkalemia Status: Acute Assessment and Plan: * recurrent since admission * poor response to medical management despite multiple rounds of therapy to date * better control with dialysis * potassium okay today (3) Rhabdomyolysis: Code(s): M62.82 - Rhabdomyolysis Status: Acute Assessment and Plan: * as noted by elevated CPK * likely related to prolonged downtime from fall * contributing to hyperkalemia and KAITLIN * CPK down to just above 4000 (4) Leukocytosis: Qualifiers: Leukocytosis type: unspecified Qualified Code(s): D72.829 - Elevated white blood cell count, unspecified Code(s): D72.829 - Elevated white blood cell count, unspecified Status: Acute Assessment and Plan: * initial concern was sepsis given associated lactic acidosis, tachycardia, tachypnea on admission * Infectious Disease consultation/recommendations noted * potential sources noted: * scrotal cellulitis * right arm hematoma * constipation * pneumonia * tinea cruris * elevated CPK * on antibiotics as outlined * Cultures negative so far * no fevers (5) Anemia: Code(s): D64.9 - Anemia, unspecified Status: Acute Assessment and Plan: * due to previous IVF hydration, KAITLNI/ARF, and trauma/hematomas * Epogen with HD * hemoglobin up to 8.8 today. * Retake 2.36, pretty good with EPO. Will continue 20,000 per treatment (6) Hyponatremia: Code(s): E87.1 - Hypo-osmolality and hyponatremia Status: Acute Assessment and Plan: * acute (on chronic?) * noted as far back as October 2022 * however, on PCP labs in October 2024, sodium was 138mmol/L * suspect due more related to KAITLIN/ARF and diminished urine output/anuria * TSH and cortisol okay * with so little urine, this is mostly dilutional. (7) Atrial fibrillation and flutter: Code(s): I48.91 - Unspecified atrial fibrillation; I48.92 - Unspecified atrial flutter Status: Chronic Assessment and Plan: * paroxysmal in nature * on amiodarone * on anticoagulation - ok to resume? * however, would recommend coumadin or eliquis as opposed to xarelto given his KAITLIN (8) Transaminitis: Code(s): R74.01 - Elevation of levels of liver transaminase levels Status: Acute Assessment and Plan: * presumably related to rhabdomyolysis * holding statin * continue follow trend of LFTs as surrogate for the rhabdo (because this CK is so high) * slow improvement noted (9) Hypertension: Code(s): I10 - Essential (primary) hypertension Status: Chronic Assessment and Plan: * reasonable control * running on the soft side more recently * follow trend of hemodynamics (10) Diabetes: Code(s): E11.9 - Type 2 diabetes mellitus without complications Status: Chronic Assessment and Plan: * follow accu-cheks * glycemic control per hospitalist Will continue to follow. Subjective Date/time seen: 07/24/25 09:05 Interval history: the patient is feeling okay. Legs have less swelling. Hands are still swollen. I asked him to keep them elevated. I gave him pillows to keep his hands above his waist Exam Narrative: General: WD/WN male in NAD Heart: normal S1 and S2; no rub or gallop Lungs: clear bilaterally Abdomen: soft, nontender, nondistended, positive bowel sounds Extremities: no cyanosis or clubbing; 1-2+ edema (upper and lower extremities) Skin: venous stasis changes over BLEs noted Objective Data Vital Signs Vital Signs: Vital Signs - 24 hr 07/23/25 09:38 07/23/25 09:38 07/23/25 09:45 Temperature 96.9 F L 96.9 F L Pulse Rate 69 69 61 Respiratory Rate 16 18 Blood Pressure 144/50 H 144/50 H 127/45 L Pulse Oximetry 99 99 Oxygen Delivery Oxygen Flow Rate 07/23/25 10:00 07/23/25 10:15 07/23/25 10:30 Temperature Pulse Rate 62 66 64 Respiratory Rate Blood Pressure 130/51 L 134/52 L 132/52 L Pulse Oximetry Oxygen Delivery Oxygen Flow Rate 07/23/25 10:45 07/23/25 11:00 07/23/25 11:15 Temperature Pulse Rate 65 66 62 Respiratory Rate Blood Pressure 130/49 L 133/52 L 121/48 L Pulse Oximetry Oxygen Delivery Oxygen Flow Rate 07/23/25 11:31 07/23/25 11:45 07/23/25 12:00 Temperature Pulse Rate 62 63 65 Respiratory Rate Blood Pressure 127/45 L 130/49 L 127/52 L Pulse Oximetry Oxygen Delivery Oxygen Flow Rate 07/23/25 12:00 07/23/25 12:15 07/23/25 12:30 Temperature Pulse Rate 66 71 68 Respiratory Rate Blood Pressure 132/50 L 124/49 L Pulse Oximetry Oxygen Delivery Oxygen Flow Rate 07/23/25 12:45 07/23/25 13:00 07/23/25 13:15 Temperature Pulse Rate 68 66 68 Respiratory Rate Blood Pressure 130/51 L 118/41 L 112/39 L Pulse Oximetry Oxygen Delivery Oxygen Flow Rate 07/23/25 13:30 07/23/25 13:50 07/23/25 14:05 Temperature Pulse Rate 65 68 68 Respiratory Rate Blood Pressure 121/50 L 130/46 L 131/47 L Pulse Oximetry Oxygen Delivery Oxygen Flow Rate 07/23/25 14:05 07/23/25 15:35 07/23/25 15:35 Temperature 96.9 F L Pulse Rate 68 82 82 Respiratory Rate 16 Blood Pressure 131/47 L Pulse Oximetry 99 Oxygen Delivery Oxygen Flow Rate 07/23/25 16:00 07/23/25 16:00 07/23/25 20:00 Temperature 97.3 F L Pulse Rate 78 79 79 Respiratory Rate 16 Blood Pressure 130/40 L Pulse Oximetry 97 Oxygen Delivery Oxygen Flow Rate 07/23/25 20:41 07/23/25 21:35 07/24/25 00:00 Temperature 97.5 F L Pulse Rate 76 71 Respiratory Rate 24 H 20 18 Blood Pressure 96/38 L Pulse Oximetry 93 94 Oxygen Delivery Autopap CPAP Oxygen Flow Rate 2 07/24/25 00:00 07/24/25 02:00 07/24/25 03:45 Temperature Pulse Rate 72 Respiratory Rate 25 H 17 Blood Pressure Pulse Oximetry Oxygen Delivery Autopap Autopap Oxygen Flow Rate 07/24/25 04:00 07/24/25 08:00 Temperature 96.7 F L Pulse Rate 67 70 Respiratory Rate 16 Blood Pressure 119/39 L Pulse Oximetry 98 Oxygen Delivery Oxygen Flow Rate Intake/Output Intake/Output: Intake & Output 07/21/25 07/22/25 07/23/25 07/24/25 23:59 23:59 23:59 23:59 Intake Total 730 1460 1280 600 Output Total 1100 50 2393 Balance -370 1410 -1113 600 Meds/Results Medications: Active Medications Generic Name Dose Route Start Last Admin Trade Name Freq PRN Reason Stop Dose Admin Acetaminophen 1,000 mg 07/16/25 09:58 07/18/25 16:13 Acetaminophen 500 Mg Tablet PO 1,000 mg Q6H PRN Administration Fever Acetaminophen 500 mg 07/19/25 14:13 07/23/25 15:38 Acetaminophen 500 Mg Tablet PO 500 mg Q6H PRN Administration Pain Rated 1-3 Albuterol/Ipratropium 3 ml 07/17/25 20:40 07/20/25 00:58 Ipratropium 0.5 Mg/Albuterol Sulfate 2.5 Mg Ampul.Neb 3 Ml INHALATION 3 ml Q6HRT PRN Administration wheezing Amiodarone HCl 200 mg 07/15/25 02:30 07/23/25 15:35 Amiodarone Hcl 200 Mg Tablet PO 200 mg DAILY SALMA Administration Bisacodyl 5 mg 07/22/25 13:35 07/23/25 15:34 Bisacodyl 5 Mg Tablet Ec PO 5 mg QAM SALMA Administration Carvedilol 12.5 mg 07/15/25 09:00 07/23/25 16:26 Carvedilol 12.5 Mg Tablet PO Not Given BID SALMA Dextrose 12.5 gm 07/15/25 01:20 Dextrose 50% 25 Gm/50 Ml Syringe IV PUSH PRN PRN Hypoglycemia Protocol Glucagon 1 mg 07/15/25 01:20 Glucagon For Inj 1 Mg Vial IM PRN PRN Hypoglycemia Protocol Glucose 15 gm 07/15/25 01:20 Glucose Oral Gel 15 Gm Of Glucse In 37.5 Gm Tube PO PRN PRN Hypoglycemia Protocol Hydromorphone HCl 1 mg 07/19/25 14:13 Hydromorphone Hcl Inj (*Crx) 1 Mg/Ml Syr IV PUSH Q2H PRN Breakthrough Pain Rated 7-10 or NPO Hydromorphone HCl 0.5 mg 07/19/25 14:13 Hydromorphone Hcl Inj (*Crx) 1 Mg/Ml Syr IV PUSH Q2H PRN Breakthrough Pain Rated 4-6 or NPO Dextrose 1,000 mls @ 100 mls/hr 07/15/25 01:20 Dextrose 5% 1,000 Ml IVPB PRN PRN Hypoglycemia Protocol Albumin Human 50 mls @ 999 mls/hr 07/15/25 15:32 Albutein IVPB 08/14/25 15:31 Q10M PRN HYPOTENSION Piperacillin Sod/Tazobactam 50 mls @ 100 mls/hr 07/20/25 14:00 07/24/25 05:47 Sod 2.25 gm/ Sodium Chloride IVPB Infused Q8H SALMA Infusion Insulin Aspart 3 - 6 units 07/15/25 08:00 07/23/25 16:26 Insulin Aspart (*Bkc) 100 Units/Ml SUB-Q Not Given TIDWM [facility] Protocol Insulin Aspart 1 - 3 units 07/15/25 21:00 07/23/25 21:47 Insulin Aspart (*Bkc) 100 Units/Ml SUB-Q Not Given HS [facility] Protocol Linezolid 600 mg 07/22/25 14:00 07/23/25 22:02 Linezolid 600 Mg Tablet PO 600 mg Q12HR SALMA Administration Magnesium Hydroxide 30 ml 07/16/25 08:39 Magnesium Hydroxide Susp 30 Ml Udc PO DAILY PRN Constipation Naloxone HCl 0.1 mg 07/19/25 14:13 Naloxone Hcl 0.4 Mg/Ml Vial IV PUSH Q2M PRN Opiate Reversal Oxycodone HCl 2.5 mg 07/19/25 14:13 07/21/25 21:03 Oxycodone Hcl (*Crx) 2.5 Mg Tab Ir PO 2.5 mg Q4H PRN Administration Pain Rated 4-6 Oxycodone HCl 5 mg 07/19/25 14:13 07/23/25 16:29 Oxycodone Hcl (*Crx) 5 Mg Tab Ir PO 5 mg Q4H PRN Administration Pain Rated 7-10 Polyethylene Glycol 17 gm 07/16/25 09:00 07/23/25 15:35 Polyethylene Glycol 3350 17 Gm Powd.Pack PO 17 gm QAM SALMA Administration Rivaroxaban 20 mg 07/15/25 17:00 07/17/25 16:55 Rivaroxaban 20 Mg Tablet PO 20 mg On Hold: 07/18/25 10:26 DAILY@1700 SALMA Administration Sodium Chloride 10 ml 07/19/25 22:00 07/24/25 05:17 Central Line Flush IV PUSH 10 ml Q8HR SALMA Administration Sodium Chloride 10 ml 07/19/25 17:03 07/24/25 00:32 Central Line Flush IV PUSH 10 ml PRN PRN Administration with TPN bag changes Sodium Chloride 20 ml 07/19/25 17:03 07/24/25 05:17 Central Line Flush IV PUSH 20 ml PRN PRN Administration after blood draws Radiology Results: ITS Impressions Cervical Spine CT 07/15/25 07:00 IMPRESSION: 1. No acute abnormality of the cervical spine. 2: Severe cervical spondylosis. Head CT 07/15/25 07:03 IMPRESSION: 1. No acute intracranial abnormality. Shoulder X-Ray 07/15/25 07:39 Impression: 1: No acute fracture. Wrist X-Ray 07/15/25 07:40 Impression: 1: No acute fracture. Elbow X-Ray 07/15/25 07:41 Impression: 1: No acute fracture. Renal Ultrasound 07/15/25 13:09 Impression: 1: Unremarkable renal ultrasound. No stones, masses or hydronephrosis. Central Venous Line 07/19/25 13:50 IMPRESSION: Fluoroscopy used during portacatheter placement. Scrotum Ultrasound 07/20/25 19:05 IMPRESSION: 1. Diffuse scrotal wall thickening. Consider an infectious/inflammatory process such as cellulitis, lymphedema or systemic causes like cirrhosis, nephrotic syndrome or generalized edema. Soft Tissue Ultrasound 07/20/25 19:10 Impression: 1: Area of superficial venous thrombosis corresponds to the area of left arm swelling. Chest X-Ray 07/22/25 17:19 Impression: 1: Developing left basilar airspace disease, consistent with pneumonia. Labs Labs: Laboratory Results - last 24 hr 07/23/25 07/23/25 07/23/25 14:36 16:19 19:59 WBC RBC Hgb Hct MCV MCH MCHC RDW Plt Count MPV Immature Gran % (Auto) Neut % (Auto) Lymph % (Auto) [place] % (Auto) Eos % (Auto) Baso % (Auto) Lymph # (Auto) [place] # (Auto) Eos # (Auto) Baso # (Auto) Abs Immat Gran (auto) Absolute Neuts (auto) Absolute Nucleated RBC Total Counted Neutrophils % (Manual) Band Neutrophils % Lymphocytes % (Manual) Monocytes % (Manual) Eosinophils % (Manual) Nucleated RBC % Abs Neuts (Manual) Abs Lymphs (Manual) Abs Monocytes (Manual) Absolute Eos (Manual) Platelet Estimate Anisocytosis Schistocytes Absolute Retic Percent Retic Immature Retic Fraction Retic Hgb Content Sodium Potassium Chloride Carbon Dioxide Anion Gap BUN Creatinine Estim Creat Clear Calc Estimated GFR Glucose POC Capillary Glucose 99 151 H 195 H Calcium Phosphorus Magnesium Total Bilirubin AST ALT Alkaline Phosphatase Total Creatine Kinase Total Protein Albumin 07/24/25 07/24/25 05:29 06:45 WBC 19.3 H RBC 2.81 L Hgb 8.8 L Hct 28.0 L MCV 99.6 MCH 31.3 MCHC 31.4 L RDW 14.0 Plt Count 189 MPV 10.2 Immature Gran % (Auto) Not Reportable Neut % (Auto) Not Reportable Lymph % (Auto) Not Reportable [place] % (Auto) Not Reportable Eos % (Auto) Not Reportable Baso % (Auto) Not Reportable Lymph # (Auto) Not Reportable [place] # (Auto) Not Reportable Eos # (Auto) Not Reportable Baso # (Auto) Not Reportable Abs Immat Gran (auto) Not Reportable Absolute Neuts (auto) Not Reportable Absolute Nucleated RBC Not Reportable Total Counted 100 Neutrophils % (Manual) 76 H Band Neutrophils % 4 Lymphocytes % (Manual) 13.0 L Monocytes % (Manual) 4 Eosinophils % (Manual) 3 Nucleated RBC % Not Reportable Abs Neuts (Manual) 15.44 H Abs Lymphs (Manual) 2.50 Abs Monocytes (Manual) 0.77 Absolute Eos (Manual) 0.57 H Platelet Estimate Adequate Anisocytosis 1+ Schistocytes None seen Absolute Retic 0.07 Percent Retic 2.36 Immature Retic Fraction 42.7 H Retic Hgb Content 25.3 L Sodium 129 L Potassium 4.6 Chloride 97 L Carbon Dioxide 27 Anion Gap 5 BUN 63 H D Creatinine 4.42 H Estim Creat Clear Calc 26 Estimated GFR 13 L Glucose 154 H POC Capillary Glucose 140 H Calcium 8.2 L Phosphorus 5.8 H Magnesium 2.2 Total Bilirubin 0.6 AST 165 H ALT 53 H Alkaline Phosphatase 73 Total Creatine Kinase 4126 H Total Protein 5.2 L Albumin 2.6 L
[2025-07-24] MEDS: BISACODYL 5 MG TABLET EC PO (10:38)
[2025-07-24] MEDS: LINEZOLID 600 MG TABLET PO ×2 (10:38→21:03)
[2025-07-24] MEDS: AMIODARONE HCL 200 MG TABLET PO (10:39)
[2025-07-24] MEDS: CALCIUM ACETATE 667 MG TABLET 2001 MG PO ×2 (12:01→16:19)
--- NOTE | 2025-07-24 15:07 | PC.NURSE ---
This patient, Jeo Henriquez, was transferred to [facility] on 07/24/25 at 1317. Personal belongings sent with patient. Report given to LISA Villalba. Appropriate documentation sent with patient.
--- NOTE | 2025-07-24 15:55 | PC.NURSE ---
RN received report from IMU and patient came over with orders for simmons to be removed four hours prior. RN called MD Griffith and asked if that was still part of the plan. Gladis asked for it to be removed and to start a voiding trial. Voiding trial began at 1550.
[2025-07-24] MEDS: ACETAMINOPHEN 500 MG TABLET 1000 MG PO (16:19)
[2025-07-24] MEDS: oxyCODONE HCL (*CRX) 5 MG TAB IR PO (21:03)
[2025-07-25] VITALS (34 sets, daily range): BP systolic 83–142; BP diastolic 37–72; PULSE 63–686; RESP 12–20; TEMP 36–37; O2SAT 90–98
[2025-07-25] MEDS: CENTRAL LINE FLUSH 20 ML IV PUSH (04:35)
[2025-07-25] MEDS: PIPERACILLIN/TAZOBACTAM SOD 2.25 GM in SODIUM CHLORIDE 0.9% IV 50 ML 100 ML IVPB ×3 (05:16→21:58)
[2025-07-25] MEDS: CENTRAL LINE FLUSH 10 ML IV PUSH ×3 (05:17→21:59)
[2025-07-25 05:19] LABS: Alanine Aminotransferase 51 U/L (6-50); Albumin Level 2.6 g/dL (3.5-5.1); Alkaline Phosphatase 81 U/L (38-126); Anion Gap 8 mmol/L (4-12); Aspartate Amino Transferase 144 U/L (17-59); Bilirubin,Total 0.6 mg/dL (0.2-1.3); Blood Urea Nitrogen 78 mg/dL (9-20); Calcium 8.7 mg/dL (8.4-10.2); Carbon Dioxide 24 mmol/L (22-30); Chloride 96 mmol/L (98-107); Creatine Kinase > 1600 U/L (55-170); Estimated CRCL calculation 19 ml/min; Estimated Glomerular Filt Rate 9; Glucose 144 mg/dL (65-110); Magnesium 2.4 mg/dL (1.6-2.3); Potassium 4.6 mmol/L (3.4-5.0); Sodium 128 mmol/L (137-145); Total Protein 5.3 g/dL (6.3-8.2)
[2025-07-25] MEDS: oxyCODONE HCL (*CRX) 5 MG TAB IR PO ×3 (05:23→21:59)
[2025-07-25 05:59] LABS: Hematocrit 28.6 % (42.0-52.0); Hemoglobin 9.0 g/dL (14.0-18.0); Mean Corpuscular HGB Conc 31.5 g/dl (32-36); Mean Corpuscular Hemoglobin 31.4 pg (26-34); Mean Corpuscular Volume 99.7 fl (80-100); Platelet Count Result 232 k/mm3 (150-375); Red Blood Count 2.87 M/mm3 (4.6-6.20); White Blood Count 23.1 K/mm3 (4.5-10.0)
[2025-07-25 06:46] LABS: Total Cells Counted 100
[2025-07-25 06:48] LABS: Band Neutrophils Percent 9 % (0-6); Eosinophils Absolute Manual 0.46 K/mm3 (0.02-0.50); Eosinophils Percent Manual 2 % (0-4); Lymphocytes Absolute Manual 3.23 K/mm3 (1.1-4.5); Lymphocytes Percent Manual 14 % (18-44); Monocytes Absolute Manual 1.61 K/mm3 (0.1-0.90); Monocytes Percent Manual 7 % (3-9); Neutrophils Absolute Manual 17.78 K/mm3 (1.3-6.7); Neutrophils Percent Manual 68 % (46-73); Schistocytes None Seen
[2025-07-25] MEDS: CALCIUM ACETATE 667 MG TABLET 2001 MG PO ×3 (08:12→17:51)
[2025-07-25] MEDS: ACETAMINOPHEN 500 MG TABLET 1000 MG PO ×2 (08:12→13:58)
[2025-07-25] MEDS: AMIODARONE HCL 200 MG TABLET PO (08:13)
[2025-07-25] MEDS: LINEZOLID 600 MG TABLET PO ×2 (08:13→21:58)
--- NOTE | 2025-07-25 08:44 | PCPTNOTE ---
The patient treatment was not able to be completed at this time due to patient out of room for dialysis. Will plan to continue treatment per plan of care.
--- NOTE | 2025-07-25 08:58 | PM.IMPN ---
Progress Note: A&P Assessment and Plan (1) Hypertension: Code(s): I10 - Essential (primary) hypertension Status: Chronic (2) Atrial fibrillation and flutter: Code(s): I48.91 - Unspecified atrial fibrillation; I48.92 - Unspecified atrial flutter Status: Chronic (3) Type 2 diabetes mellitus with hyperglycemia, without long-term current use of insulin: Code(s): E11.65 - Type 2 diabetes mellitus with hyperglycemia Status: Acute (4) Obesity: Code(s): E66.9 - Obesity, unspecified Status: Acute (5) Transaminitis: Code(s): R74.01 - Elevation of levels of liver transaminase levels Status: Acute (6) Acute kidney injury: Code(s): N17.9 - Acute kidney failure, unspecified Status: Acute (7) Lactic acidosis: Code(s): E87.20 - Acidosis, unspecified Status: Acute (8) Acute hyperkalemia: Code(s): E87.5 - Hyperkalemia Status: Acute (9) Hyperkalemia: Code(s): E87.5 - Hyperkalemia Status: Acute (10) Cellulitis of scrotum: Code(s): N49.2 - Inflammatory disorders of scrotum Status: Acute (11) Anemia: Code(s): D64.9 - Anemia, unspecified Status: Acute (12) Leukocytosis: Qualifiers: Leukocytosis type: unspecified Qualified Code(s): D72.829 - Elevated white blood cell count, unspecified Code(s): D72.829 - Elevated white blood cell count, unspecified Status: Acute (13) Sepsis: Qualifiers: Acute renal failure type: unspecified Sepsis acute organ dysfunction status: with acute organ dysfunction Sepsis type: sepsis due to unspecified organism Severe sepsis acute organ dysfunction type: acute renal failure Severe sepsis shock status: without septic shock Qualified Code(s): A41.9 - Sepsis, unspecified organism; R65.20 - Severe sepsis without septic shock; N17.9 - Acute kidney failure, unspecified Code(s): A41.9 - Sepsis, unspecified organism Status: Acute (14) Rhabdomyolysis: Qualifiers: Rhabdomyolysis type: non-traumatic Qualified Code(s): M62.82 - Rhabdomyolysis Code(s): M62.82 - Rhabdomyolysis Status: Acute (15) Decubital ulcer: Qualifiers: Pressure injury location: unspecified location Pressure injury stage: unstageable Qualified Code(s): L89.95 - Pressure ulcer of unspecified site, unstageable Code(s): L89.90 - Pressure ulcer of unspecified site, unspecified stage Status: Acute (16) Hematoma of right upper extremity: Code(s): S40.021A - Contusion of right upper arm, initial encounter Status: Acute Plan 1) Rhabdomyolysis: due to prolonged time down s/p 3L IV fluids in the ER CPK 4126 down from >[id number] Nephrology following trend CK levels continue dialysis per Nephrology (2) Acute kidney injury: due to acute rhabdomyolysis Creatinine 4.42/BUN 63 today Nephrology following Contineu dialysis per Nephrology (3) Acute hyperkalemia: resolved conitnue dialysis per Nephrology (4) Sepsis: Patient met sepsis criteria with tachycardia, tachypnea and leukocytosis. Exact source of infection is not known. still having leukocytosis WBC 19.3 from 17 He urine does not appear to be acutely infected. He does have open wounds Obtain scrotal ultrasound, bilateral arm ultrasound Chest x-ray unremarkable Appreciate ID help Currently on Zosyn and Linezolid per ID (5) Type 2 diabetes mellitus with hyperglycemia, without long-term current use of insulin: accu checks avoid hypoglycemia SSI while inpatient (6) Chronic anticoagulation: Xarelto has been on hold (7) Transaminitis: most likely due to rhabdomyolysis or possible sepsis markedly improving AST/ALT 202/59 today hold home statin (8) Right superficial venous thrombosis and Left UE edema No anticoagulation indicated Continue Antibiotics for possible Left UE cellulitis Will obtain soft tissue ultrasound for both arms 9. Acute anemia: Status post 1 unit of PRBC Monitor for any bleeding Continue with the erythropoietin Hb 9.0 monitoring Hyponatremia Na 128 Nephrology following Scrotal cellulitis Continue Zosyn and Linezolid Monitor cultures, scrotal gram stain showed positive gram positive cocci 10. Code status: Full 11. DVT prophylaxis: SCDs 12. Disposition: Pending improvement Subjective Date/time seen: 07/24/25 08:58 Interval history: Comfortable at bedside Review of Systems Review of Systems: 12 systems were reviewed with pertinent positives and negatives per HPI. Except as documented in the HPI, all other systems were reviewed and are negative. All systems reviewed & are unremarkable except as noted in HPI and below Exam Narrative: Weight 188.6 kg BMI 53.4 Const: Other: Morbidly obese, acutely ill-appearing, disheveled HENMT: Other: Mucous membranes are dry Eyes: Other: no scleral icterus, no conjunctival pallor Neck: Other: Large neck circumference, no lymphadenopathy, Resp: Other: Decreased breath sounds bilaterally Cardio: Other: RRR, swollen bilateral arm GI: Other: Soft, nontender, obese, normoactive bowel sounds : Other: Uncircumcised male Correa catheter present, erythematous moist rash bilateral inguinal folds and pannus folds, significant erythema to bilateral scrotum will with ulceration to the right scrotum with eschar (please see nursing documentation for photos in measurements) Urinary Catheter: Urinary Catheter: patent and draining Skin: Other: Candidiasis noted to pannus folds and bilateral inguinal folds, right buttock erythema that is blanchable and extend extending down into the posterior upper thigh with associated skin shearing, and as a ulcer of the left elbow with overlying eschar unable to stage, right scrotal wound Neuro: Other: Alert oriented to person place and time, speech is clear, no facial asymmetry, no localizing neurologic deficits noted the generalized weakness of the extremities, sensation is intact, patient reports hallucinations Extrem: Other: Bilateral extremity swollen including upper extremity and lower extremity Psych: Other: Appropriate mood and affect, pleasant and cooperative Objective Data Vital Signs Vital Signs: Vital Signs - 24 hr 07/24/25 10:39 07/24/25 10:39 07/24/25 12:00 Temperature Pulse Rate 72 72 78 Respiratory Rate Blood Pressure Pulse Oximetry Oxygen Delivery 07/24/25 13:46 07/24/25 16:00 07/24/25 16:20 Temperature 97.6 F Pulse Rate 73 69 75 Respiratory Rate 16 Blood Pressure 96/48 L Pulse Oximetry 93 Oxygen Delivery 07/24/25 19:51 07/24/25 21:00 07/24/25 21:00 Temperature 97.4 F L Pulse Rate 76 72 Respiratory Rate 20 Blood Pressure 116/50 L Pulse Oximetry 92 Oxygen Delivery Room Air 07/24/25 23:30 07/25/25 00:00 07/25/25 01:59 Temperature Pulse Rate 70 Respiratory Rate 16 20 Blood Pressure Pulse Oximetry Oxygen Delivery Autopap Autopap 07/25/25 03:58 07/25/25 04:00 07/25/25 08:13 Temperature 96.8 F L Pulse Rate 72 72 71 Respiratory Rate 18 Blood Pressure 129/48 L Pulse Oximetry 91 Oxygen Delivery 07/25/25 08:13 Temperature Pulse Rate 71 Respiratory Rate Blood Pressure Pulse Oximetry Oxygen Delivery Intake/Output Intake/Output: Intake & Output 07/22/25 07/23/25 07/24/25 07/25/25 23:59 23:59 23:59 23:59 Intake Total 1460 1280 1510 200 Output Total 50 2393 300 Balance 1410 -1113 1210 200 Meds/Results Medications: Active Medications Generic Name Dose Route Start Last Admin Trade Name Freq PRN Reason Stop Dose Admin Acetaminophen 1,000 mg 07/16/25 09:58 07/25/25 08:12 Acetaminophen 500 Mg Tablet PO 1,000 mg Q6H PRN Administration Fever Acetaminophen 500 mg 07/19/25 14:13 07/23/25 15:38 Acetaminophen 500 Mg Tablet PO 500 mg Q6H PRN Administration Pain Rated 1-3 Albuterol/Ipratropium 3 ml 07/17/25 20:40 07/20/25 00:58 Ipratropium 0.5 Mg/Albuterol Sulfate 2.5 Mg Ampul.Neb 3 Ml INHALATION 3 ml Q6HRT PRN Administration wheezing Amiodarone HCl 200 mg 07/15/25 02:30 07/25/25 08:13 Amiodarone Hcl 200 Mg Tablet PO 200 mg DAILY SALMA Administration Bisacodyl 5 mg 07/22/25 13:35 07/25/25 08:14 Bisacodyl 5 Mg Tablet Ec PO Not Given QAM SALMA Calcium Acetate 2,001 mg 07/24/25 12:00 07/25/25 08:12 Calcium Acetate 667 Mg Tablet PO 2,001 mg TIDWM SALMA Administration Carvedilol 12.5 mg 07/15/25 09:00 07/25/25 08:13 Carvedilol 12.5 Mg Tablet PO 12.5 mg BID SALMA Administration Dextrose 12.5 gm 07/15/25 01:20 Dextrose 50% 25 Gm/50 Ml Syringe IV PUSH PRN PRN Hypoglycemia Protocol Epoetin Sd-epbx 20,000 units 07/25/25 09:00 Epoetin Sd-Epbx 20,000 Units/Ml Vial IV PUSH MOWEFR@09 SALMA Glucagon 1 mg 07/15/25 01:20 Glucagon For Inj 1 Mg Vial IM PRN PRN Hypoglycemia Protocol Glucose 15 gm 07/15/25 01:20 Glucose Oral Gel 15 Gm Of Glucse In 37.5 Gm Tube PO PRN PRN Hypoglycemia Protocol Hydromorphone HCl 1 mg 07/19/25 14:13 Hydromorphone Hcl Inj (*Crx) 1 Mg/Ml Syr IV PUSH Q2H PRN Breakthrough Pain Rated 7-10 or NPO Hydromorphone HCl 0.5 mg 07/19/25 14:13 Hydromorphone Hcl Inj (*Crx) 1 Mg/Ml Syr IV PUSH Q2H PRN Breakthrough Pain Rated 4-6 or NPO Dextrose 1,000 mls @ 100 mls/hr 07/15/25 01:20 Dextrose 5% 1,000 Ml IVPB PRN PRN Hypoglycemia Protocol Albumin Human 50 mls @ 999 mls/hr 07/15/25 15:32 Albutein IVPB 08/14/25 15:31 Q10M PRN HYPOTENSION Piperacillin Sod/Tazobactam 50 mls @ 100 mls/hr 07/20/25 14:00 07/25/25 05:46 Sod 2.25 gm/ Sodium Chloride IVPB Infused Q8H [facility] Infusion Insulin Aspart 3 - 6 units 07/15/25 08:00 07/25/25 08:11 Insulin Aspart (*Bkc) 100 Units/Ml SUB-Q Not Given TIDWM [facility] Protocol Insulin Aspart 1 - 3 units 07/15/25 21:00 07/24/25 21:00 Insulin Aspart (*Bkc) 100 Units/Ml SUB-Q Not Given HS [facility] Protocol Linezolid 600 mg 07/22/25 14:00 07/25/25 08:13 Linezolid 600 Mg Tablet PO 600 mg Q12HR SALMA Administration Magnesium Hydroxide 30 ml 07/16/25 08:39 Magnesium Hydroxide Susp 30 Ml Udc PO DAILY PRN Constipation Naloxone HCl 0.1 mg 07/19/25 14:13 Naloxone Hcl 0.4 Mg/Ml Vial IV PUSH Q2M PRN Opiate Reversal Oxycodone HCl 2.5 mg 07/19/25 14:13 07/21/25 21:03 Oxycodone Hcl (*Crx) 2.5 Mg Tab Ir PO 2.5 mg Q4H PRN Administration Pain Rated 4-6 Oxycodone HCl 5 mg 07/19/25 14:13 07/25/25 05:23 Oxycodone Hcl (*Crx) 5 Mg Tab Ir PO 5 mg Q4H PRN Administration Pain Rated 7-10 Polyethylene Glycol 17 gm 07/16/25 09:00 07/25/25 08:14 Polyethylene Glycol 3350 17 Gm Powd.Pack PO Not Given QAM SALMA Rivaroxaban 20 mg 07/15/25 17:00 07/17/25 16:55 Rivaroxaban 20 Mg Tablet PO 20 mg On Hold: 07/18/25 10:26 DAILY@1700 SALMA Administration Sodium Chloride 10 ml 07/19/25 22:00 07/25/25 05:17 Central Line Flush IV PUSH 10 ml Q8HR SALMA Administration Sodium Chloride 10 ml 07/19/25 17:03 07/24/25 00:32 Central Line Flush IV PUSH 10 ml PRN PRN Administration with TPN bag changes Sodium Chloride 20 ml 07/19/25 17:03 07/25/25 04:35 Central Line Flush IV PUSH 20 ml PRN PRN Administration after blood draws Radiology Results: ITS Impressions Cervical Spine CT 07/15/25 07:00 IMPRESSION: 1. No acute abnormality of the cervical spine. 2: Severe cervical spondylosis. Head CT 07/15/25 07:03 IMPRESSION: 1. No acute intracranial abnormality. Shoulder X-Ray 07/15/25 07:39 Impression: 1: No acute fracture. Wrist X-Ray 07/15/25 07:40 Impression: 1: No acute fracture. Elbow X-Ray 07/15/25 07:41 Impression: 1: No acute fracture. Renal Ultrasound 07/15/25 13:09 Impression: 1: Unremarkable renal ultrasound. No stones, masses or hydronephrosis. Central Venous Line 07/19/25 13:50 IMPRESSION: Fluoroscopy used during portacatheter placement. Scrotum Ultrasound 07/20/25 19:05 IMPRESSION: 1. Diffuse scrotal wall thickening. Consider an infectious/inflammatory process such as cellulitis, lymphedema or systemic causes like cirrhosis, nephrotic syndrome or generalized edema. Soft Tissue Ultrasound 07/20/25 19:10 Impression: 1: Area of superficial venous thrombosis corresponds to the area of left arm swelling. Chest X-Ray 07/22/25 17:19 Impression: 1: Developing left basilar airspace disease, consistent with pneumonia. Labs Labs: Laboratory Results - last 24 hr 07/24/25 07/24/25 07/24/25 11:52 16:43 19:53 WBC RBC Hgb Hct MCV MCH MCHC RDW Plt Count MPV Immature Gran % (Auto) Neut % (Auto) Lymph % (Auto) [place] % (Auto) Eos % (Auto) Baso % (Auto) Lymph # (Auto) [place] # (Auto) Eos # (Auto) Baso # (Auto) Abs Immat Gran (auto) Absolute Neuts (auto) Absolute Nucleated RBC Total Counted Neutrophils % (Manual) Band Neutrophils % Lymphocytes % (Manual) Monocytes % (Manual) Eosinophils % (Manual) Nucleated RBC % Abs Neuts (Manual) Abs Lymphs (Manual) Abs Monocytes (Manual) Absolute Eos (Manual) Atypical Lymphocytes Platelet Estimate Schistocytes Sodium Potassium Chloride Carbon Dioxide Anion Gap BUN Creatinine Estim Creat Clear Calc Estimated GFR Glucose POC Capillary Glucose 192 H 172 H 192 H Calcium Phosphorus Magnesium Total Bilirubin AST ALT Alkaline Phosphatase Total Creatine Kinase Total Protein Albumin 07/25/25 07/25/25 07/25/25 04:32 04:33 08:10 WBC 23.1 H RBC 2.87 L Hgb 9.0 L Hct 28.6 L MCV 99.7 MCH 31.4 MCHC 31.5 L RDW 14.4 Plt Count 232 MPV 10.5 H Immature Gran % (Auto) Not Reportable Neut % (Auto) Not Reportable Lymph % (Auto) Not Reportable [place] % (Auto) Not Reportable Eos % (Auto) Not Reportable Baso % (Auto) Not Reportable Lymph # (Auto) Not Reportable [place] # (Auto) Not Reportable Eos # (Auto) Not Reportable Baso # (Auto) Not Reportable Abs Immat Gran (auto) Not Reportable Absolute Neuts (auto) Not Reportable Absolute Nucleated RBC Not Reportable Total Counted 100 Neutrophils % (Manual) 68 Band Neutrophils % 9 H Lymphocytes % (Manual) 14 L Monocytes % (Manual) 7 Eosinophils % (Manual) 2 Nucleated RBC % Not Reportable Abs Neuts (Manual) 17.78 H Abs Lymphs (Manual) 3.23 Abs Monocytes (Manual) 1.61 H Absolute Eos (Manual) 0.46 Atypical Lymphocytes Present Platelet Estimate Adequate Schistocytes None seen Sodium 128 L Potassium 4.6 Chloride 96 L Carbon Dioxide 24 Anion Gap 8 BUN 78 H D Creatinine 5.94 H Estim Creat Clear Calc 19 Estimated GFR 9 L Glucose 144 H POC Capillary Glucose 145 H Calcium 8.7 Phosphorus 6.5 H Magnesium 2.4 H Total Bilirubin 0.6 AST 144 H ALT 51 H Alkaline Phosphatase 81 Total Creatine Kinase > 1600 H Total Protein 5.3 L Albumin 2.6 L Quality VTE Prophylaxis VTE prophylaxis: mechanical ordered
[2025-07-25] MEDS: ALBUMIN HUMAN 25% 12.5 GM/50ML 50 ML 100 GM (09:14)
--- NOTE | 2025-07-25 10:45 | P.PNNP_ITS ---
Progress Note: A&P Assessment and Plan (1) Acute kidney injury: Code(s): N17.9 - Acute kidney failure, unspecified Status: Acute Assessment and Plan: * as noted by admission labs * progressively worsening as noted by trend of labs since hospitalization began * was also complicated by persistent hyperkalemia unresponsive to medical therapy and declining UOP * baseline creatinine normal: * 1.16mg/dL in October 2024 (by outpatient labs from PCP) * 1.30mg/dL in October 2022 ([facility]) * multifactorial etiology: * rhabdomyolysis * LAURY-I use prior to admission * diuretic use (lasix + spironolactone) prior to admission * prerenal factors(?) * infection/early sepsis(?) * other(?) * evaluation to date noted: * prerenal urine electrolytes * urine eosinophils negative * CPK as already noted * mild proteinuria * renal ultrasound without obstrution * s/p tunneled HD catheter placement (on 07/19/25) * continue Fri/Fri/Friday and PRN Friday schedule while hospitalized until discharge disposition known... * follow trend of repeat labs and UOP for to assess for potential renal recovery (2) Hyperkalemia: Code(s): E87.5 - Hyperkalemia Status: Acute Assessment and Plan: * recurrent since admission * poor response to medical management despite multiple rounds of therapy to date * better control with dialysis * follow trend of K+ (3) Rhabdomyolysis: Code(s): M62.82 - Rhabdomyolysis Status: Acute Assessment and Plan: * as noted by elevated CPK * likely related to prolonged downtime from fall * contributing to hyperkalemia and KAITLIN * CPK has been downtrending (4) Leukocytosis: Qualifiers: Leukocytosis type: unspecified Qualified Code(s): D72.829 - Elevated white blood cell count, unspecified Code(s): D72.829 - Elevated white blood cell count, unspecified Status: Acute Assessment and Plan: * initial concern was sepsis given associated lactic acidosis, tachycardia, tachypnea on admission * Infectious Disease following with recommendations noted * potential sources noted: * scrotal cellulitis * right arm hematoma * constipation * pneumonia * tinea cruris * elevated CPK * on antibiotics as outlined * cultures negative so far * follow trend of WBC (5) Anemia: Code(s): D64.9 - Anemia, unspecified Status: Acute Assessment and Plan: * due to previous IVF hydration, KAITLIN/ARF, and trauma/hematomas * Epogen with HD * follow trend of H/H (6) Hyponatremia: Code(s): E87.1 - Hypo-osmolality and hyponatremia Status: Acute Assessment and Plan: * acute (on chronic?) * noted as far back as October 2022 * however, on PCP labs in October 2024, sodium was 138mmol/L * suspect due more related to KAITLIN/ARF and diminished urine output/anuria (dilutional) * TSH and cortisol okay * dialysis helping to correct to some degree... (7) Atrial fibrillation and flutter: Code(s): I48.91 - Unspecified atrial fibrillation; I48.92 - Unspecified atrial flutter Status: Chronic Assessment and Plan: * paroxysmal in nature * on amiodarone * on anticoagulation - ok to resume? * however, would recommend coumadin or eliquis as opposed to xarelto given his KAITLIN (8) Transaminitis: Code(s): R74.01 - Elevation of levels of liver transaminase levels Status: Acute Assessment and Plan: * presumably related to rhabdomyolysis * holding statin * continue follow trend of LFTs as surrogate for the rhabdo (because this CK is so high) * slow improvement noted (9) Hypertension: Code(s): I10 - Essential (primary) hypertension Status: Chronic Assessment and Plan: * reasonable control * running on the soft side at times * follow trend of hemodynamics (10) Diabetes: Code(s): E11.9 - Type 2 diabetes mellitus without complications Status: Chronic Assessment and Plan: * follow accu-cheks * glycemic control per hospitalist Will continue to follow. L Subjective Date/time seen: 07/25/25 10:45 Interval history: Follow-up for acute kidney injury/acute renal failure and hyperkalemia. Chart reviewed since last seen -- tolerating dialysis treatment at the time of my visit (seen on HD at 10:35am); no new issues/problems voiced when seen; fluid removal with HD challenging due to intermittent hypotension; still with elevated WBC as noted by trend of labs. Exam 2 Narrative: General: elderly but large and WD/WN male in NAD Heart: normal S1 and S2; no rub Lungs: clear anteriorly Abdomen: soft, nontender, nondistended, positive bowel sounds Extremities: no cyanosis or clubbing; 1+ edema (upper and lower extremities) Skin: venous stasis changes over BLEs apparent Objective Data Vital Signs Vital Signs: Vital Signs Temp Pulse Resp BP Pulse Ox O2 Del Method FiO2 07/25/25 10:45 676 H 105/43 L 07/25/25 10:30 63 101/57 L 07/25/25 10:15 63 95/46 L 07/25/25 10:00 64 91/44 L 07/25/25 09:45 67 87/43 L 07/25/25 09:35 66 83/37 L 07/25/25 09:30 69 91/44 L 07/25/25 09:15 64 97/47 L 07/25/25 09:00 66 99/48 L 07/25/25 08:59 65 07/25/25 08:51 98 07/25/25 08:51 98.4 F 71 16 104/55 L 98 07/25/25 08:13 71 07/25/25 08:13 71 07/25/25 04:00 72 07/25/25 03:58 96.8 F L 72 18 129/48 L 91 07/25/25 01:59 20 Autopap 07/25/25 00:00 70 07/24/25 23:30 16 Autopap 07/24/25 21:00 72 07/24/25 21:00 Room Air 07/24/25 19:51 97.4 F L 76 20 116/50 L 92 07/24/25 16:20 75 07/24/25 16:00 69 Intake/Output Intake/Output: Intake & Output 07/22/25 07/23/25 07/24/25 07/25/25 23:59 23:59 23:59 23:59 Intake Total 1460 1280 1510 440 Output Total 50 2393 300 Balance 1410 -1113 1210 440 Meds/Results Medications: Active Medications Generic Name Dose Route Start Last Admin Trade Name Freq PRN Reason Stop Dose Admin Acetaminophen 1,000 mg 07/16/25 09:58 07/25/25 13:58 Acetaminophen 500 Mg Tablet PO 1,000 mg Q6H PRN Administration Fever Acetaminophen 500 mg 07/19/25 14:13 07/23/25 15:38 Acetaminophen 500 Mg Tablet PO 500 mg Q6H PRN Administration Pain Rated 1-3 Albuterol/Ipratropium 3 ml 07/17/25 20:40 07/20/25 00:58 Ipratropium 0.5 Mg/Albuterol Sulfate 2.5 Mg Ampul.Neb 3 Ml INHALATION 3 ml Q6HRT PRN Administration wheezing Amiodarone HCl 200 mg 07/15/25 02:30 07/25/25 08:13 Amiodarone Hcl 200 Mg Tablet PO 200 mg DAILY SALMA Administration Bisacodyl 5 mg 07/22/25 13:35 07/25/25 08:14 Bisacodyl 5 Mg Tablet Ec PO Not Given QAM SALMA Calcium Acetate 2,001 mg 07/24/25 12:00 07/25/25 13:58 Calcium Acetate 667 Mg Tablet PO 2,001 mg TIDWM SALMA Administration Carvedilol 12.5 mg 07/15/25 09:00 07/25/25 08:13 Carvedilol 12.5 Mg Tablet PO 12.5 mg BID SALMA Administration Dextrose 12.5 gm 07/15/25 01:20 Dextrose 50% 25 Gm/50 Ml Syringe IV PUSH PRN PRN Hypoglycemia Protocol Epoetin Sd-epbx 20,000 units 07/25/25 09:00 07/25/25 10:57 Epoetin Sd-Epbx 20,000 Units/Ml Vial IV PUSH 20,000 units MOWEFR@09 SALMA Administration Glucagon 1 mg 07/15/25 01:20 Glucagon For Inj 1 Mg Vial IM PRN PRN Hypoglycemia Protocol Glucose 15 gm 07/15/25 01:20 Glucose Oral Gel 15 Gm Of Glucse In 37.5 Gm Tube PO PRN PRN Hypoglycemia Protocol Hydromorphone HCl 1 mg 07/19/25 14:13 Hydromorphone Hcl Inj (*Crx) 1 Mg/Ml Syr IV PUSH Q2H PRN Breakthrough Pain Rated 7-10 or NPO Hydromorphone HCl 0.5 mg 07/19/25 14:13 Hydromorphone Hcl Inj (*Crx) 1 Mg/Ml Syr IV PUSH Q2H PRN Breakthrough Pain Rated 4-6 or NPO Dextrose 1,000 mls @ 100 mls/hr 07/15/25 01:20 Dextrose 5% 1,000 Ml IVPB PRN PRN Hypoglycemia Protocol Albumin Human 50 mls @ 999 mls/hr 07/15/25 15:32 Albutein IVPB 08/14/25 15:31 Q10M PRN HYPOTENSION Piperacillin Sod/Tazobactam 50 mls @ 100 mls/hr 07/20/25 14:00 07/25/25 05:46 Sod 2.25 gm/ Sodium Chloride IVPB Infused Q8H SALMA Infusion Insulin Aspart 3 - 6 units 07/15/25 08:00 07/25/25 13:53 Insulin Aspart (*Bkc) 100 Units/Ml SUB-Q Not Given TIDWM [facility] Protocol Insulin Aspart 1 - 3 units 07/15/25 21:00 07/24/25 21:00 Insulin Aspart (*Bkc) 100 Units/Ml SUB-Q Not Given HS [facility] Protocol Linezolid 600 mg 07/22/25 14:00 07/25/25 08:13 Linezolid 600 Mg Tablet PO 600 mg Q12HR SALMA Administration Magnesium Hydroxide 30 ml 07/16/25 08:39 Magnesium Hydroxide Susp 30 Ml Udc PO DAILY PRN Constipation Naloxone HCl 0.1 mg 07/19/25 14:13 Naloxone Hcl 0.4 Mg/Ml Vial IV PUSH Q2M PRN Opiate Reversal Oxycodone HCl 2.5 mg 07/19/25 14:13 07/21/25 21:03 Oxycodone Hcl (*Crx) 2.5 Mg Tab Ir PO 2.5 mg Q4H PRN Administration Pain Rated 4-6 Oxycodone HCl 5 mg 07/19/25 14:13 07/25/25 05:23 Oxycodone Hcl (*Crx) 5 Mg Tab Ir PO 5 mg Q4H PRN Administration Pain Rated 7-10 Polyethylene Glycol 17 gm 07/16/25 09:00 07/25/25 08:14 Polyethylene Glycol 3350 17 Gm Powd.Pack PO Not Given QAM SALMA Rivaroxaban 20 mg 07/15/25 17:00 07/17/25 16:55 Rivaroxaban 20 Mg Tablet PO 20 mg On Hold: 07/18/25 10:26 DAILY@1700 SALMA Administration Sodium Chloride 10 ml 07/19/25 22:00 07/25/25 05:17 Central Line Flush IV PUSH 10 ml Q8HR SALMA Administration Sodium Chloride 10 ml 07/19/25 17:03 07/24/25 00:32 Central Line Flush IV PUSH 10 ml PRN PRN Administration with TPN bag changes Sodium Chloride 20 ml 07/19/25 17:03 07/25/25 04:35 Central Line Flush IV PUSH 20 ml PRN PRN Administration after blood draws Radiology Results: ITS Impressions Cervical Spine CT 07/15/25 07:00 IMPRESSION: 1. No acute abnormality of the cervical spine. 2: Severe cervical spondylosis. Head CT 07/15/25 07:03 IMPRESSION: 1. No acute intracranial abnormality. Shoulder X-Ray 07/15/25 07:39 Impression: 1: No acute fracture. Wrist X-Ray 07/15/25 07:40 Impression: 1: No acute fracture. Elbow X-Ray 07/15/25 07:41 Impression: 1: No acute fracture. Renal Ultrasound 07/15/25 13:09 Impression: 1: Unremarkable renal ultrasound. No stones, masses or hydronephrosis. Central Venous Line 07/19/25 13:50 IMPRESSION: Fluoroscopy used during portacatheter placement. Scrotum Ultrasound 07/20/25 19:05 IMPRESSION: 1. Diffuse scrotal wall thickening. Consider an infectious/inflammatory process such as cellulitis, lymphedema or systemic causes like cirrhosis, nephrotic syndrome or generalized edema. Soft Tissue Ultrasound 07/20/25 19:10 Impression: 1: Area of superficial venous thrombosis corresponds to the area of left arm swelling. Chest X-Ray 07/22/25 17:19 Impression: 1: Developing left basilar airspace disease, consistent with pneumonia. Labs Labs: Laboratory Tests 07/25/25 04:33 07/25/25 04:32 Calcium 8.7 Phosphorus 6.5 H Magnesium 2.4 H Total Bilirubin 0.6 AST 144 H ALT 51 H Alkaline Phosphatase 81 Total Creatine Kinase > 1600 H Total Protein 5.3 L Albumin 2.6 L
[2025-07-25] MEDS: EPOETIN ALFA-EPBX 20,000 UNITS/ML VIAL 20000 UNITS IV PUSH (10:57)
--- NOTE | 2025-07-25 11:04 | PM.IMPN ---
Progress Note: A&P Assessment and Plan (1) Hypertension: Code(s): I10 - Essential (primary) hypertension Status: Chronic (2) Atrial fibrillation and flutter: Code(s): I48.91 - Unspecified atrial fibrillation; I48.92 - Unspecified atrial flutter Status: Chronic (3) Type 2 diabetes mellitus with hyperglycemia, without long-term current use of insulin: Code(s): E11.65 - Type 2 diabetes mellitus with hyperglycemia Status: Acute (4) Obesity: Code(s): E66.9 - Obesity, unspecified Status: Acute (5) Transaminitis: Code(s): R74.01 - Elevation of levels of liver transaminase levels Status: Acute (6) Acute kidney injury: Code(s): N17.9 - Acute kidney failure, unspecified Status: Acute (7) Lactic acidosis: Code(s): E87.20 - Acidosis, unspecified Status: Acute (8) Acute hyperkalemia: Code(s): E87.5 - Hyperkalemia Status: Acute (9) Hyperkalemia: Code(s): E87.5 - Hyperkalemia Status: Acute (10) Cellulitis of scrotum: Code(s): N49.2 - Inflammatory disorders of scrotum Status: Acute (11) Anemia: Code(s): D64.9 - Anemia, unspecified Status: Acute (12) Leukocytosis: Qualifiers: Leukocytosis type: unspecified Qualified Code(s): D72.829 - Elevated white blood cell count, unspecified Code(s): D72.829 - Elevated white blood cell count, unspecified Status: Acute (13) Sepsis: Qualifiers: Acute renal failure type: unspecified Sepsis acute organ dysfunction status: with acute organ dysfunction Sepsis type: sepsis due to unspecified organism Severe sepsis acute organ dysfunction type: acute renal failure Severe sepsis shock status: without septic shock Qualified Code(s): A41.9 - Sepsis, unspecified organism; R65.20 - Severe sepsis without septic shock; N17.9 - Acute kidney failure, unspecified Code(s): A41.9 - Sepsis, unspecified organism Status: Acute (14) Rhabdomyolysis: Qualifiers: Rhabdomyolysis type: non-traumatic Qualified Code(s): M62.82 - Rhabdomyolysis Code(s): M62.82 - Rhabdomyolysis Status: Acute (15) Decubital ulcer: Qualifiers: Pressure injury location: unspecified location Pressure injury stage: unstageable Qualified Code(s): L89.95 - Pressure ulcer of unspecified site, unstageable Code(s): L89.90 - Pressure ulcer of unspecified site, unspecified stage Status: Acute (16) Hematoma of right upper extremity: Code(s): S40.021A - Contusion of right upper arm, initial encounter Status: Acute Plan 1) Rhabdomyolysis: due to prolonged time down s/p 3L IV fluids in the ER CPK >1600 down from >07906 Nephrology following trend CK levels continue dialysis per Nephrology (2) Acute kidney injury: due to acute rhabdomyolysis Creatinine 5.94/BUN 78 today Nephrology following Continue dialysis per Nephrology (3) Acute hyperkalemia: resolved continue dialysis per Nephrology (4) Sepsis: Patient met sepsis criteria with tachycardia, tachypnea and leukocytosis. Exact source of infection is not known. still having leukocytosis WBC 23.1 from 17 He urine does not appear to be acutely infected. He does have open wounds Obtain scrotal ultrasound, bilateral arm ultrasound Chest x-ray unremarkable Appreciate ID help Currently on Zosyn and Linezolid per ID (5) Type 2 diabetes mellitus with hyperglycemia, without long-term current use of insulin: accu checks avoid hypoglycemia SSI while inpatient (6) Chronic anticoagulation: Xarelto has been on hold (7) Transaminitis: most likely due to rhabdomyolysis or possible sepsis markedly improving AST/ALT 144/51 today hold home statin (8) Right superficial venous thrombosis and Left UE edema No anticoagulation indicated Continue Antibiotics for possible Left UE cellulitis Will obtain soft tissue ultrasound for both arms 9. Acute anemia: Status post 1 unit of PRBC Monitor for any bleeding Continue with the erythropoietin Hb 9.0 monitoring Hyponatremia Na 128 Nephrology following Scrotal cellulitis Continue Zosyn and Linezolid Monitor cultures, scrotal gram stain showed positive gram positive cocci 10. Code status: Full 11. DVT prophylaxis: On Xarelto 12. Disposition: Pending improvement Subjective Date/time seen: 07/25/25 11:04 Interval history: Comfortable at bedside leukocytosis worsening Review of Systems Review of Systems: 12 systems were reviewed with pertinent positives and negatives per HPI. Except as documented in the HPI, all other systems were reviewed and are negative. All systems reviewed & are unremarkable except as noted in HPI and below Exam Narrative: Weight 188.6 kg BMI 53.4 Const: Other: Morbidly obese, acutely ill-appearing, disheveled HENMT: Other: Mucous membranes are dry Eyes: Other: no scleral icterus, no conjunctival pallor Neck: Other: Large neck circumference, no lymphadenopathy, Resp: Other: Decreased breath sounds bilaterally Cardio: Other: RRR, swollen bilateral arm GI: Other: Soft, nontender, obese, normoactive bowel sounds : Other: Uncircumcised male Correa catheter present, erythematous moist rash bilateral inguinal folds and pannus folds, significant erythema to bilateral scrotum will with ulceration to the right scrotum with eschar (please see nursing documentation for photos in measurements) Urinary Catheter: Urinary Catheter: patent and draining Skin: Other: Candidiasis noted to pannus folds and bilateral inguinal folds, right buttock erythema that is blanchable and extend extending down into the posterior upper thigh with associated skin shearing, and as a ulcer of the left elbow with overlying eschar unable to stage, right scrotal wound Neuro: Other: Alert oriented to person place and time, speech is clear, no facial asymmetry, no localizing neurologic deficits noted the generalized weakness of the extremities, sensation is intact, patient reports hallucinations Extrem: Other: Bilateral extremity swollen including upper extremity and lower extremity Psych: Other: Appropriate mood and affect, pleasant and cooperative Objective Data Vital Signs Vital Signs: Vital Signs - 24 hr 07/24/25 12:00 07/24/25 13:46 07/24/25 16:00 Temperature 97.6 F Pulse Rate 78 73 69 Respiratory Rate 16 Blood Pressure 96/48 L Pulse Oximetry 93 Oxygen Delivery Fraction of Inspired Oxygen 07/24/25 16:20 07/24/25 19:51 07/24/25 21:00 Temperature 97.4 F L Pulse Rate 75 76 Respiratory Rate 20 Blood Pressure 116/50 L Pulse Oximetry 92 Oxygen Delivery Room Air Fraction of Inspired Oxygen 07/24/25 21:00 07/24/25 23:30 07/25/25 00:00 Temperature Pulse Rate 72 70 Respiratory Rate 16 Blood Pressure Pulse Oximetry Oxygen Delivery Autopap Fraction of Inspired Oxygen 07/25/25 01:59 07/25/25 03:58 07/25/25 04:00 Temperature 96.8 F L Pulse Rate 72 72 Respiratory Rate 20 18 Blood Pressure 129/48 L Pulse Oximetry 91 Oxygen Delivery Autopap Fraction of Inspired Oxygen 07/25/25 08:13 07/25/25 08:13 07/25/25 08:51 Temperature 98.4 F Pulse Rate 71 71 71 Respiratory Rate 16 Blood Pressure 104/55 L Pulse Oximetry 98 Oxygen Delivery Fraction of Inspired Oxygen 07/25/25 08:51 07/25/25 08:59 07/25/25 09:00 Temperature Pulse Rate 65 66 Respiratory Rate Blood Pressure 99/48 L Pulse Oximetry Oxygen Delivery Fraction of Inspired Oxygen 98 07/25/25 09:15 07/25/25 09:30 07/25/25 09:35 Temperature Pulse Rate 64 69 66 Respiratory Rate Blood Pressure 97/47 L 91/44 L 83/37 L Pulse Oximetry Oxygen Delivery Fraction of Inspired Oxygen 07/25/25 09:45 07/25/25 10:00 07/25/25 10:15 Temperature Pulse Rate 67 64 63 Respiratory Rate Blood Pressure 87/43 L 91/44 L 95/46 L Pulse Oximetry Oxygen Delivery Fraction of Inspired Oxygen 07/25/25 10:30 07/25/25 10:45 Temperature Pulse Rate 63 676 H Respiratory Rate Blood Pressure 101/57 L 105/43 L Pulse Oximetry Oxygen Delivery Fraction of Inspired Oxygen Intake/Output Intake/Output: Intake & Output 07/22/25 07/23/25 07/24/25 07/25/25 23:59 23:59 23:59 23:59 Intake Total 1460 1280 1510 440 Output Total 50 2393 300 Balance 1410 -1113 1210 440 Meds/Results Medications: Active Medications Generic Name Dose Route Start Last Admin Trade Name Freq PRN Reason Stop Dose Admin Acetaminophen 1,000 mg 07/16/25 09:58 07/25/25 08:12 Acetaminophen 500 Mg Tablet PO 1,000 mg Q6H PRN Administration Fever Acetaminophen 500 mg 07/19/25 14:13 07/23/25 15:38 Acetaminophen 500 Mg Tablet PO 500 mg Q6H PRN Administration Pain Rated 1-3 Albuterol/Ipratropium 3 ml 07/17/25 20:40 07/20/25 00:58 Ipratropium 0.5 Mg/Albuterol Sulfate 2.5 Mg Ampul.Neb 3 Ml INHALATION 3 ml Q6HRT PRN Administration wheezing Amiodarone HCl 200 mg 07/15/25 02:30 07/25/25 08:13 Amiodarone Hcl 200 Mg Tablet PO 200 mg DAILY SALMA Administration Bisacodyl 5 mg 07/22/25 13:35 07/25/25 08:14 Bisacodyl 5 Mg Tablet Ec PO Not Given QAM SALMA Calcium Acetate 2,001 mg 07/24/25 12:00 07/25/25 08:12 Calcium Acetate 667 Mg Tablet PO 2,001 mg TIDWM SALMA Administration Carvedilol 12.5 mg 07/15/25 09:00 07/25/25 08:13 Carvedilol 12.5 Mg Tablet PO 12.5 mg BID SALMA Administration Dextrose 12.5 gm 07/15/25 01:20 Dextrose 50% 25 Gm/50 Ml Syringe IV PUSH PRN PRN Hypoglycemia Protocol Epoetin Sd-epbx 20,000 units 07/25/25 09:00 07/25/25 10:57 Epoetin Sd-Epbx 20,000 Units/Ml Vial IV PUSH 20,000 units MOWEFR@09 SALMA Administration Glucagon 1 mg 07/15/25 01:20 Glucagon For Inj 1 Mg Vial IM PRN PRN Hypoglycemia Protocol Glucose 15 gm 07/15/25 01:20 Glucose Oral Gel 15 Gm Of Glucse In 37.5 Gm Tube PO PRN PRN Hypoglycemia Protocol Hydromorphone HCl 1 mg 07/19/25 14:13 Hydromorphone Hcl Inj (*Crx) 1 Mg/Ml Syr IV PUSH Q2H PRN Breakthrough Pain Rated 7-10 or NPO Hydromorphone HCl 0.5 mg 07/19/25 14:13 Hydromorphone Hcl Inj (*Crx) 1 Mg/Ml Syr IV PUSH Q2H PRN Breakthrough Pain Rated 4-6 or NPO Dextrose 1,000 mls @ 100 mls/hr 07/15/25 01:20 Dextrose 5% 1,000 Ml IVPB PRN PRN Hypoglycemia Protocol Albumin Human 50 mls @ 999 mls/hr 07/15/25 15:32 Albutein IVPB 08/14/25 15:31 Q10M PRN HYPOTENSION Piperacillin Sod/Tazobactam 50 mls @ 100 mls/hr 07/20/25 14:00 07/25/25 05:46 Sod 2.25 gm/ Sodium Chloride IVPB Infused Q8H [facility] Infusion Insulin Aspart 3 - 6 units 07/15/25 08:00 07/25/25 08:11 Insulin Aspart (*Bkc) 100 Units/Ml SUB-Q Not Given TIDWM [facility] Protocol Insulin Aspart 1 - 3 units 07/15/25 21:00 07/24/25 21:00 Insulin Aspart (*Bkc) 100 Units/Ml SUB-Q Not Given HS [facility] Protocol Linezolid 600 mg 07/22/25 14:00 07/25/25 08:13 Linezolid 600 Mg Tablet PO 600 mg Q12HR SALMA Administration Magnesium Hydroxide 30 ml 07/16/25 08:39 Magnesium Hydroxide Susp 30 Ml Udc PO DAILY PRN Constipation Naloxone HCl 0.1 mg 07/19/25 14:13 Naloxone Hcl 0.4 Mg/Ml Vial IV PUSH Q2M PRN Opiate Reversal Oxycodone HCl 2.5 mg 07/19/25 14:13 07/21/25 21:03 Oxycodone Hcl (*Crx) 2.5 Mg Tab Ir PO 2.5 mg Q4H PRN Administration Pain Rated 4-6 Oxycodone HCl 5 mg 07/19/25 14:13 07/25/25 05:23 Oxycodone Hcl (*Crx) 5 Mg Tab Ir PO 5 mg Q4H PRN Administration Pain Rated 7-10 Polyethylene Glycol 17 gm 07/16/25 09:00 07/25/25 08:14 Polyethylene Glycol 3350 17 Gm Powd.Pack PO Not Given QAM [facility] Rivaroxaban 20 mg 07/15/25 17:00 07/17/25 16:55 Rivaroxaban 20 Mg Tablet PO 20 mg On Hold: 07/18/25 10:26 DAILY@1700 [facility] Administration Sodium Chloride 10 ml 07/19/25 22:00 07/25/25 05:17 Central Line Flush IV PUSH 10 ml Q8HR SALMA Administration Sodium Chloride 10 ml 07/19/25 17:03 07/24/25 00:32 Central Line Flush IV PUSH 10 ml PRN PRN Administration with TPN bag changes Sodium Chloride 20 ml 07/19/25 17:03 07/25/25 04:35 Central Line Flush IV PUSH 20 ml PRN PRN Administration after blood draws Radiology Results: ITS Impressions Cervical Spine CT 07/15/25 07:00 IMPRESSION: 1. No acute abnormality of the cervical spine. 2: Severe cervical spondylosis. Head CT 07/15/25 07:03 IMPRESSION: 1. No acute intracranial abnormality. Shoulder X-Ray 07/15/25 07:39 Impression: 1: No acute fracture. Wrist X-Ray 07/15/25 07:40 Impression: 1: No acute fracture. Elbow X-Ray 07/15/25 07:41 Impression: 1: No acute fracture. Renal Ultrasound 07/15/25 13:09 Impression: 1: Unremarkable renal ultrasound. No stones, masses or hydronephrosis. Central Venous Line 07/19/25 13:50 IMPRESSION: Fluoroscopy used during portacatheter placement. Scrotum Ultrasound 07/20/25 19:05 IMPRESSION: 1. Diffuse scrotal wall thickening. Consider an infectious/inflammatory process such as cellulitis, lymphedema or systemic causes like cirrhosis, nephrotic syndrome or generalized edema. Soft Tissue Ultrasound 07/20/25 19:10 Impression: 1: Area of superficial venous thrombosis corresponds to the area of left arm swelling. Chest X-Ray 07/22/25 17:19 Impression: 1: Developing left basilar airspace disease, consistent with pneumonia. Labs Labs: Laboratory Results - last 24 hr 07/24/25 07/24/25 07/24/25 11:52 16:43 19:53 WBC RBC Hgb Hct MCV MCH MCHC RDW Plt Count MPV Immature Gran % (Auto) Neut % (Auto) Lymph % (Auto) [place] % (Auto) Eos % (Auto) Baso % (Auto) Lymph # (Auto) [place] # (Auto) Eos # (Auto) Baso # (Auto) Abs Immat Gran (auto) Absolute Neuts (auto) Absolute Nucleated RBC Total Counted Neutrophils % (Manual) Band Neutrophils % Lymphocytes % (Manual) Monocytes % (Manual) Eosinophils % (Manual) Nucleated RBC % Abs Neuts (Manual) Abs Lymphs (Manual) Abs Monocytes (Manual) Absolute Eos (Manual) Atypical Lymphocytes Platelet Estimate Schistocytes Sodium Potassium Chloride Carbon Dioxide Anion Gap BUN Creatinine Estim Creat Clear Calc Estimated GFR Glucose POC Capillary Glucose 192 H 172 H 192 H Calcium Phosphorus Magnesium Total Bilirubin AST ALT Alkaline Phosphatase Total Creatine Kinase Total Protein Albumin 07/25/25 07/25/25 07/25/25 04:32 04:33 08:10 WBC 23.1 H RBC 2.87 L Hgb 9.0 L Hct 28.6 L MCV 99.7 MCH 31.4 MCHC 31.5 L RDW 14.4 Plt Count 232 MPV 10.5 H Immature Gran % (Auto) Not Reportable Neut % (Auto) Not Reportable Lymph % (Auto) Not Reportable [place] % (Auto) Not Reportable Eos % (Auto) Not Reportable Baso % (Auto) Not Reportable Lymph # (Auto) Not Reportable [place] # (Auto) Not Reportable Eos # (Auto) Not Reportable Baso # (Auto) Not Reportable Abs Immat Gran (auto) Not Reportable Absolute Neuts (auto) Not Reportable Absolute Nucleated RBC Not Reportable Total Counted 100 Neutrophils % (Manual) 68 Band Neutrophils % 9 H Lymphocytes % (Manual) 14 L Monocytes % (Manual) 7 Eosinophils % (Manual) 2 Nucleated RBC % Not Reportable Abs Neuts (Manual) 17.78 H Abs Lymphs (Manual) 3.23 Abs Monocytes (Manual) 1.61 H Absolute Eos (Manual) 0.46 Atypical Lymphocytes Present Platelet Estimate Adequate Schistocytes None seen Sodium 128 L Potassium 4.6 Chloride 96 L Carbon Dioxide 24 Anion Gap 8 BUN 78 H D Creatinine 5.94 H Estim Creat Clear Calc 19 Estimated GFR 9 L Glucose 144 H POC Capillary Glucose 145 H Calcium 8.7 Phosphorus 6.5 H Magnesium 2.4 H Total Bilirubin 0.6 AST 144 H ALT 51 H Alkaline Phosphatase 81 Total Creatine Kinase > 1600 H Total Protein 5.3 L Albumin 2.6 L Quality VTE Prophylaxis VTE prophylaxis: mechanical ordered
--- NOTE | 2025-07-25 12:29 | PCNFU ---
Nutrition Follow-Up Complete: Increased protein energy needs related to pressure injuries as evidenced by skin breakdown Goal:Adequate PO intake to support wound healing Pt meeting goal, continue with same goal Pt current nutrition is Renal, TACOS BID, Nepro shakes BID. Nutrition recommendation: continue with current plan of care Last recorded weight is 200.3 kg. Bowel Motility: +BM 07/25 Labs Reviewed: Hgb:9.0, HCT:28.6, BUN:78, Cr:5.9, Glu:144, Phos: 6.5 Meds Noted: novolog, miralax, phoslo Skin: multiple pressure ulcers Additional Notes: Pt continues on a renal diet, intake 75% at this time. Nepro shakes BID and TACOS BID in place. Encourage po intake. Monitoring intakes, weights, labs, skin, meds, supplement tolerance, plan of care Follow up in 5 days
--- NOTE | 2025-07-25 14:54 | P.PNINF_ITS ---
Progress Note: A&P Assessment and Plan (1) Leukocytosis: Qualifiers: Leukocytosis type: unspecified Qualified Code(s): D72.829 - Elevated white blood cell count, unspecified Code(s): D72.829 - Elevated white blood cell count, unspecified Status: Acute (2) Cellulitis of scrotum: Code(s): N49.2 - Inflammatory disorders of scrotum Status: Acute (3) Hematoma of right upper extremity: Code(s): S40.021A - Contusion of right upper arm, initial encounter Status: Acute (4) Anemia: Code(s): D64.9 - Anemia, unspecified Status: Acute (5) Rhabdomyolysis: Qualifiers: Rhabdomyolysis type: non-traumatic Qualified Code(s): M62.82 - Rhabdomyolysis Code(s): M62.82 - Rhabdomyolysis Status: Acute (6) Acute kidney injury: Code(s): N17.9 - Acute kidney failure, unspecified Status: Acute (7) Transaminitis: Code(s): R74.01 - Elevation of levels of liver transaminase levels Status: Acute (8) Chronic hyponatremia: Code(s): E87.1 - Hypo-osmolality and hyponatremia Status: Acute (9) Hyperkalemia: Code(s): E87.5 - Hyperkalemia Status: Acute (10) Constipation: Code(s): K59.00 - Constipation, unspecified Status: Acute Plan # Improved but persistent leukocytosis after admission for immobility-associated rhabdomyolysis and KAITLIN with acute renal failure. -- possibly associated with infectious etiology and would consider ongoing scrotal inflammation / cellulitis / abscess/ severe tinea cruris. However, does not clinically appear to be progressive or associated with Tamera's gangrene. Ultrasound of scrotum identifies diffuse wall thickening. No mention of abscess. Wound culture with Gram-positive cocci. -- possibly associated with right arm hematoma, either sterile or secondarily infected. However, no ballotable collection of fluid around the elbow, arm appears to be with generalized swelling, and ultrasound only identifies mild subcutaneous edema in the area of swelling. -- acute anemia with hemoglobin dropped to 6.8 likely contributing to a leukemoid reaction. Acute anemia likely multifactorial and secondary to rehydration and arm hematoma but may need to rule out GI blood loss. Hemoglobin remaining stable at 9.0. -- continued leukemoid triggers such as persistent CPK elevation in the setting of acute rhabdomyolysis. CPK slowly resolving. -- rule out adrenal insufficiency given hyponatremia and hyperkalemia although the latter likely associated with KAITLIN. But a.m. cortisol level within normal limits. -- constipation has been associated with leukocytosis. Patient has not had a bowel movement since 07/17. -- recent chest x-ray with left basilar infiltrate representing atelectasis versus pneumonia. Patient receiving Zosyn. -- no evidence of urinary tract infection. Blood cultures have been negative to date. Plan: -- Maintain both Zosyn and Zyvox for another 24 hours. Next a repeat CBC tomorrow. If continues to trend up, consider noncontrast CT of the chest. Monitor for diarrhea with increasing white blood cell count. Continue to monitor closely for any change in characteristics of the scrotal swelling and ulceration. Again, if increased white count, may consider serial scrotal ultrasound to ensure not developing abscess. Will continue to follow daily. Will look for opportunities for oral step-down therapy/ transition to skilled facility when clinically ready. Patient was seen via video telehealth consultation with the assistance of staff. Chart, data, and patient independently reviewed. Patient was located at [facility] while I was located in my [place] office. Received verbal consent from patient. Subjective Date/time seen: 07/25/25 14:54 Interval history: No new fevers. White count trended up however. No diarrhea. No shortness of breath. Using his CPAP overnight for the past 2 nights and has felt much more well rested. Does feel fatigued after dialysis today. No issues with his HD catheter. New PICC in the right arm. Still has bilateral upper extremity swelling. Tolerating the Zosyn and Zyvox. Exam Narrative: Awake, alert, appropriate, and interactive. No distress. Patient is obese. No respiratory difficulty. Status has bilateral upper extremity swelling specially in the hands. No erythema. HD catheter and PICC line are clean. No advancing crepitus has been noted from his baseline scrotal swelling. Objective Data Vital Signs Vital Signs: Vital Signs - 24 hr 07/24/25 16:00 07/24/25 16:20 07/24/25 19:51 Temperature 36.3 C L Pulse Rate 69 75 76 Respiratory Rate 20 Blood Pressure 116/50 L Pulse Oximetry 92 Oxygen Delivery Fraction of Inspired Oxygen 07/24/25 21:00 07/24/25 21:00 07/24/25 23:30 Temperature Pulse Rate 72 Respiratory Rate 16 Blood Pressure Pulse Oximetry Oxygen Delivery Room Air Autopap Fraction of Inspired Oxygen 07/25/25 00:00 07/25/25 01:59 07/25/25 03:58 Temperature 36.0 C L Pulse Rate 70 72 Respiratory Rate 20 18 Blood Pressure 129/48 L Pulse Oximetry 91 Oxygen Delivery Autopap Fraction of Inspired Oxygen 07/25/25 04:00 07/25/25 08:13 07/25/25 08:13 Temperature Pulse Rate 72 71 71 Respiratory Rate Blood Pressure Pulse Oximetry Oxygen Delivery Fraction of Inspired Oxygen 07/25/25 08:51 07/25/25 08:51 07/25/25 08:59 Temperature 36.9 C Pulse Rate 71 65 Respiratory Rate 16 Blood Pressure 104/55 L Pulse Oximetry 98 Oxygen Delivery Fraction of Inspired Oxygen 98 07/25/25 09:00 07/25/25 09:15 07/25/25 09:30 Temperature Pulse Rate 66 64 69 Respiratory Rate Blood Pressure 99/48 L 97/47 L 91/44 L Pulse Oximetry Oxygen Delivery Fraction of Inspired Oxygen 07/25/25 09:35 07/25/25 09:45 07/25/25 10:00 Temperature Pulse Rate 66 67 64 Respiratory Rate Blood Pressure 83/37 L 87/43 L 91/44 L Pulse Oximetry Oxygen Delivery Fraction of Inspired Oxygen 07/25/25 10:15 07/25/25 10:30 07/25/25 10:45 Temperature Pulse Rate 63 63 676 H Respiratory Rate Blood Pressure 95/46 L 101/57 L 105/43 L Pulse Oximetry Oxygen Delivery Fraction of Inspired Oxygen 07/25/25 11:00 07/25/25 11:15 07/25/25 11:30 Temperature Pulse Rate 65 63 64 Respiratory Rate Blood Pressure 135/62 120/58 L 123/62 Pulse Oximetry Oxygen Delivery Fraction of Inspired Oxygen 07/25/25 11:45 07/25/25 12:00 07/25/25 12:15 Temperature Pulse Rate 64 68 66 Respiratory Rate Blood Pressure 123/58 L 138/64 136/61 Pulse Oximetry Oxygen Delivery Fraction of Inspired Oxygen 07/25/25 12:30 07/25/25 12:45 07/25/25 13:00 Temperature Pulse Rate 68 71 67 Respiratory Rate Blood Pressure 122/62 136/72 139/68 Pulse Oximetry Oxygen Delivery Fraction of Inspired Oxygen 07/25/25 13:04 07/25/25 13:12 07/25/25 14:09 Temperature 36.4 C L Pulse Rate 686 H 69 78 Respiratory Rate 18 Blood Pressure 142/65 H 135/66 116/42 L Pulse Oximetry 98 Oxygen Delivery Fraction of Inspired Oxygen Intake/Output Intake/Output: Intake & Output 07/22/25 07/23/25 07/24/25 07/25/25 23:59 23:59 23:59 23:59 Intake Total 1460 1280 1510 440 Output Total 50 2393 300 1000 Balance 1410 -1113 1210 -560 Meds/Results Medications: Active Medications Generic Name Dose Route Start Last Admin Trade Name Freq PRN Reason Stop Dose Admin Acetaminophen 1,000 mg 07/16/25 09:58 07/25/25 13:58 Acetaminophen 500 Mg Tablet PO 1,000 mg Q6H PRN Administration Fever Acetaminophen 500 mg 07/19/25 14:13 07/23/25 15:38 Acetaminophen 500 Mg Tablet PO 500 mg Q6H PRN Administration Pain Rated 1-3 Albuterol/Ipratropium 3 ml 07/17/25 20:40 07/20/25 00:58 Ipratropium 0.5 Mg/Albuterol Sulfate 2.5 Mg Ampul.Neb 3 Ml INHALATION 3 ml Q6HRT PRN Administration wheezing Amiodarone HCl 200 mg 07/15/25 02:30 07/25/25 08:13 Amiodarone Hcl 200 Mg Tablet PO 200 mg DAILY SALMA Administration Bisacodyl 5 mg 07/22/25 13:35 07/25/25 08:14 Bisacodyl 5 Mg Tablet Ec PO Not Given QAM SALMA Calcium Acetate 2,001 mg 07/24/25 12:00 07/25/25 13:58 Calcium Acetate 667 Mg Tablet PO 2,001 mg TIDWM SALMA Administration Carvedilol 12.5 mg 07/15/25 09:00 07/25/25 08:13 Carvedilol 12.5 Mg Tablet PO 12.5 mg BID SALMA Administration Dextrose 12.5 gm 07/15/25 01:20 Dextrose 50% 25 Gm/50 Ml Syringe IV PUSH PRN PRN Hypoglycemia Protocol Epoetin Sd-epbx 20,000 units 07/25/25 09:00 07/25/25 10:57 Epoetin Sd-Epbx 20,000 Units/Ml Vial IV PUSH 20,000 units MOWEFR@09 SALMA Administration Glucagon 1 mg 07/15/25 01:20 Glucagon For Inj 1 Mg Vial IM PRN PRN Hypoglycemia Protocol Glucose 15 gm 07/15/25 01:20 Glucose Oral Gel 15 Gm Of Glucse In 37.5 Gm Tube PO PRN PRN Hypoglycemia Protocol Hydromorphone HCl 1 mg 07/19/25 14:13 Hydromorphone Hcl Inj (*Crx) 1 Mg/Ml Syr IV PUSH Q2H PRN Breakthrough Pain Rated 7-10 or NPO Hydromorphone HCl 0.5 mg 07/19/25 14:13 Hydromorphone Hcl Inj (*Crx) 1 Mg/Ml Syr IV PUSH Q2H PRN Breakthrough Pain Rated 4-6 or NPO Dextrose 1,000 mls @ 100 mls/hr 07/15/25 01:20 Dextrose 5% 1,000 Ml IVPB PRN PRN Hypoglycemia Protocol Albumin Human 50 mls @ 999 mls/hr 07/15/25 15:32 Albutein IVPB 08/14/25 15:31 Q10M PRN HYPOTENSION Piperacillin Sod/Tazobactam 50 mls @ 100 mls/hr 07/20/25 14:00 07/25/25 13:59 Sod 2.25 gm/ Sodium Chloride IVPB 100 mls/hr Q8H SALMA Administration Insulin Aspart 3 - 6 units 07/15/25 08:00 07/25/25 13:53 Insulin Aspart (*Bkc) 100 Units/Ml SUB-Q Not Given TIDWM [facility] Protocol Insulin Aspart 1 - 3 units 07/15/25 21:00 07/24/25 21:00 Insulin Aspart (*Bkc) 100 Units/Ml SUB-Q Not Given HS [facility] Protocol Linezolid 600 mg 07/22/25 14:00 07/25/25 08:13 Linezolid 600 Mg Tablet PO 600 mg Q12HR SALMA Administration Magnesium Hydroxide 30 ml 07/16/25 08:39 Magnesium Hydroxide Susp 30 Ml Udc PO DAILY PRN Constipation Naloxone HCl 0.1 mg 07/19/25 14:13 Naloxone Hcl 0.4 Mg/Ml Vial IV PUSH Q2M PRN Opiate Reversal Oxycodone HCl 2.5 mg 07/19/25 14:13 07/21/25 21:03 Oxycodone Hcl (*Crx) 2.5 Mg Tab Ir PO 2.5 mg Q4H PRN Administration Pain Rated 4-6 Oxycodone HCl 5 mg 07/19/25 14:13 07/25/25 05:23 Oxycodone Hcl (*Crx) 5 Mg Tab Ir PO 5 mg Q4H PRN Administration Pain Rated 7-10 Polyethylene Glycol 17 gm 07/16/25 09:00 07/25/25 08:14 Polyethylene Glycol 3350 17 Gm Powd.Pack PO Not Given QAM SALMA Rivaroxaban 20 mg 07/15/25 17:00 07/17/25 16:55 Rivaroxaban 20 Mg Tablet PO 20 mg On Hold: 07/18/25 10:26 DAILY@1700 SALMA Administration Sodium Chloride 10 ml 07/19/25 22:00 07/25/25 14:02 Central Line Flush IV PUSH 10 ml Q8HR SALMA Administration Sodium Chloride 10 ml 07/19/25 17:03 07/24/25 00:32 Central Line Flush IV PUSH 10 ml PRN PRN Administration with TPN bag changes Sodium Chloride 20 ml 07/19/25 17:03 07/25/25 04:35 Central Line Flush IV PUSH 20 ml PRN PRN Administration after blood draws Radiology Results: ITS Impressions Cervical Spine CT 07/15/25 07:00 IMPRESSION: 1. No acute abnormality of the cervical spine. 2: Severe cervical spondylosis. Head CT 07/15/25 07:03 IMPRESSION: 1. No acute intracranial abnormality. Shoulder X-Ray 07/15/25 07:39 Impression: 1: No acute fracture. Wrist X-Ray 07/15/25 07:40 Impression: 1: No acute fracture. Elbow X-Ray 07/15/25 07:41 Impression: 1: No acute fracture. Renal Ultrasound 07/15/25 13:09 Impression: 1: Unremarkable renal ultrasound. No stones, masses or hydronephrosis. Central Venous Line 07/19/25 13:50 IMPRESSION: Fluoroscopy used during portacatheter placement. Scrotum Ultrasound 07/20/25 19:05 IMPRESSION: 1. Diffuse scrotal wall thickening. Consider an infectious/inflammatory process such as cellulitis, lymphedema or systemic causes like cirrhosis, nephrotic syndrome or generalized edema. Soft Tissue Ultrasound 07/20/25 19:10 Impression: 1: Area of superficial venous thrombosis corresponds to the area of left arm swelling. Chest X-Ray 07/22/25 17:19 Impression: 1: Developing left basilar airspace disease, consistent with pneumonia. Labs Labs: Laboratory Results - last 24 hr 07/24/25 07/24/25 07/25/25 16:43 19:53 04:32 WBC RBC Hgb Hct MCV MCH MCHC RDW Plt Count MPV Immature Gran % (Auto) Neut % (Auto) Lymph % (Auto) [place] % (Auto) Eos % (Auto) Baso % (Auto) Lymph # (Auto) [place] # (Auto) Eos # (Auto) Baso # (Auto) Abs Immat Gran (auto) Absolute Neuts (auto) Absolute Nucleated RBC Total Counted Neutrophils % (Manual) Band Neutrophils % Lymphocytes % (Manual) Monocytes % (Manual) Eosinophils % (Manual) Nucleated RBC % Abs Neuts (Manual) Abs Lymphs (Manual) Abs Monocytes (Manual) Absolute Eos (Manual) Atypical Lymphocytes Platelet Estimate Schistocytes Sodium 128 L Potassium 4.6 Chloride 96 L Carbon Dioxide 24 Anion Gap 8 BUN 78 H D Creatinine 5.94 H Estim Creat Clear Calc 19 Estimated GFR 9 L Glucose 144 H POC Capillary Glucose 172 H 192 H Calcium 8.7 Phosphorus 6.5 H Magnesium 2.4 H Total Bilirubin 0.6 AST 144 H ALT 51 H Alkaline Phosphatase 81 Total Creatine Kinase > 1600 H Total Protein 5.3 L Albumin 2.6 L 07/25/25 07/25/25 07/25/25 04:33 08:10 13:36 WBC 23.1 H RBC 2.87 L Hgb 9.0 L Hct 28.6 L MCV 99.7 MCH 31.4 MCHC 31.5 L RDW 14.4 Plt Count 232 MPV 10.5 H Immature Gran % (Auto) Not Reportable Neut % (Auto) Not Reportable Lymph % (Auto) Not Reportable [place] % (Auto) Not Reportable Eos % (Auto) Not Reportable Baso % (Auto) Not Reportable Lymph # (Auto) Not Reportable [place] # (Auto) Not Reportable Eos # (Auto) Not Reportable Baso # (Auto) Not Reportable Abs Immat Gran (auto) Not Reportable Absolute Neuts (auto) Not Reportable Absolute Nucleated RBC Not Reportable Total Counted 100 Neutrophils % (Manual) 68 Band Neutrophils % 9 H Lymphocytes % (Manual) 14 L Monocytes % (Manual) 7 Eosinophils % (Manual) 2 Nucleated RBC % Not Reportable Abs Neuts (Manual) 17.78 H Abs Lymphs (Manual) 3.23 Abs Monocytes (Manual) 1.61 H Absolute Eos (Manual) 0.46 Atypical Lymphocytes Present Platelet Estimate Adequate Schistocytes None seen Sodium Potassium Chloride Carbon Dioxide Anion Gap BUN Creatinine Estim Creat Clear Calc Estimated GFR Glucose POC Capillary Glucose 145 H 126 H Calcium Phosphorus Magnesium Total Bilirubin AST ALT Alkaline Phosphatase Total Creatine Kinase Total Protein Albumin
--- NOTE | 2025-07-25 15:25 | WNDPHOTO ---
PHOTO ONLY - See Nursing Notes and/ or assessments for documentation.
[2025-07-26] VITALS (15 sets, daily range): BP systolic 101–129; BP diastolic 43–56; PULSE 73–82; RESP 12–19; TEMP 36.4–36.8; O2SAT 90–96
[2025-07-26 04:52] LABS: Hematocrit 27.7 % (42.0-52.0); Hemoglobin 8.6 g/dL (14.0-18.0); Mean Corpuscular HGB Conc 31.0 g/dl (32-36); Mean Corpuscular Hemoglobin 31.0 pg (26-34); Mean Corpuscular Volume 100.0 fl (80-100); Platelet Count Result 220 k/mm3 (150-375); Red Blood Count 2.77 M/mm3 (4.6-6.20); White Blood Count 20.6 K/mm3 (4.5-10.0)
[2025-07-26] MEDS: PIPERACILLIN/TAZOBACTAM SOD 2.25 GM in SODIUM CHLORIDE 0.9% IV 50 ML 100 ML IVPB ×3 (05:12→21:53)
[2025-07-26 05:13] LABS: Alanine Aminotransferase 46 U/L (6-50); Albumin Level 2.6 g/dL (3.5-5.1); Alkaline Phosphatase 75 U/L (38-126); Anion Gap 2 mmol/L (4-12); Aspartate Amino Transferase 121 U/L (17-59); Bilirubin,Total 0.5 mg/dL (0.2-1.3); Blood Urea Nitrogen 54 mg/dL (9-20); Calcium 9.2 mg/dL (8.4-10.2); Carbon Dioxide 30 mmol/L (22-30); Chloride 98 mmol/L (98-107); Creatine Kinase 1492 U/L (55-170); Estimated CRCL calculation 27 ml/min; Estimated Glomerular Filt Rate 14; Glucose 151 mg/dL (65-110); Magnesium 2.3 mg/dL (1.6-2.3); Potassium 4.7 mmol/L (3.4-5.0); Sodium 130 mmol/L (137-145); Total Protein 5.2 g/dL (6.3-8.2)
[2025-07-26] MEDS: CENTRAL LINE FLUSH 10 ML IV PUSH ×3 (05:13→21:54)
[2025-07-26 05:30] LABS: Band Neutrophils Percent 8 % (0-6); Eosinophils Absolute Manual 0.20 K/mm3 (0.02-0.50); Eosinophils Percent Manual 1 % (0-4); Lymphocytes Absolute Manual 2.06 K/mm3 (1.1-4.5); Lymphocytes Percent Manual 10.0 % (18-44); Metamyelocytes Percent 1 %; Monocytes Absolute Manual 1.64 K/mm3 (0.1-0.90); Monocytes Percent Manual 8 % (3-9); Neutrophils Absolute Manual 16.48 K/mm3 (1.3-6.7); Neutrophils Percent Manual 72 % (46-73); Total Cells Counted 100
[2025-07-26 05:31] LABS: Anisocytosis 1+; Hypochromasia 1+; Polychromasia 1+; Schistocytes None Seen
[2025-07-26] MEDS: BISACODYL 5 MG TABLET EC PO (08:26)
[2025-07-26] MEDS: AMIODARONE HCL 200 MG TABLET PO (08:26)
[2025-07-26] MEDS: CALCIUM ACETATE 667 MG TABLET 2001 MG PO ×3 (08:26→17:38)
[2025-07-26] MEDS: LINEZOLID 600 MG TABLET PO ×2 (08:26→21:50)
--- NOTE | 2025-07-26 09:32 | P.PNNP_ITS ---
Progress Note: A&P Assessment and Plan (1) Acute kidney injury: Code(s): N17.9 - Acute kidney failure, unspecified Status: Acute Assessment and Plan: * as noted by admission labs * progressively worsening as noted by trend of labs since hospitalization began * was also complicated by persistent hyperkalemia unresponsive to medical therapy and declining UOP * baseline creatinine normal: * 1.16mg/dL in October 2024 (by outpatient labs from PCP) * 1.30mg/dL in October 2022 ([facility]) * multifactorial etiology: * rhabdomyolysis * LAURY-I use prior to admission * diuretic use (lasix + spironolactone) prior to admission * prerenal factors(?) * infection/early sepsis(?) * other(?) * evaluation to date noted: * prerenal urine electrolytes * urine eosinophils negative * CPK as already noted * mild proteinuria * renal ultrasound without obstrution * s/p tunneled HD catheter placement (on 07/19/25) * continue Fri/Fri/Friday and PRN Friday schedule while hospitalized until discharge disposition known... * HD tomorrow * follow trend of repeat labs and UOP for to assess for potential renal recovery (2) Hyperkalemia: Code(s): E87.5 - Hyperkalemia Status: Acute Assessment and Plan: * resolved * recurrent since admission * poor response to medical management despite multiple rounds of therapy to date * better control with dialysis * follow trend of K+ (3) Rhabdomyolysis: Code(s): M62.82 - Rhabdomyolysis Status: Acute Assessment and Plan: * resolving * as noted by elevated CPK * likely related to prolonged downtime from fall * contributing to hyperkalemia and KAITLIN * CPK has been downtrending (4) Leukocytosis: Qualifiers: Leukocytosis type: unspecified Qualified Code(s): D72.829 - Elevated white blood cell count, unspecified Code(s): D72.829 - Elevated white blood cell count, unspecified Status: Acute Assessment and Plan: * initial concern was sepsis given associated lactic acidosis, tachycardia, tachypnea on admission * Infectious Disease following with recommendations noted * potential sources noted: * scrotal cellulitis * right arm hematoma * constipation * pneumonia * tinea cruris * elevated CPK * on antibiotics as outlined * cultures negative so far * follow trend of WBC (5) Anemia: Code(s): D64.9 - Anemia, unspecified Status: Acute Assessment and Plan: * due to previous IVF hydration, KAITLIN/ARF, and trauma/hematomas * Epogen with HD * follow trend of H/H (6) Hyponatremia: Code(s): E87.1 - Hypo-osmolality and hyponatremia Status: Acute Assessment and Plan: * acute (on chronic?) * noted as far back as October 2022 * however, on PCP labs in October 2024, sodium was 138mmol/L * suspect due more related to KAITLIN/ARF and diminished urine output/anuria (dilutional) * TSH and cortisol okay * dialysis helping to correct to some degree... (7) Atrial fibrillation and flutter: Code(s): I48.91 - Unspecified atrial fibrillation; I48.92 - Unspecified atrial flutter Status: Chronic Assessment and Plan: * paroxysmal in nature * on amiodarone * on anticoagulation - ok to resume? * however, would recommend coumadin or eliquis as opposed to xarelto given his KAITLIN (8) Transaminitis: Code(s): R74.01 - Elevation of levels of liver transaminase levels Status: Acute Assessment and Plan: * resolved * presumably related to rhabdomyolysis * holding statin * slow improvement noted (9) Hypertension: Code(s): I10 - Essential (primary) hypertension Status: Chronic Assessment and Plan: * reasonable control * running on the soft side at times * follow trend of hemodynamics (10) Diabetes: Code(s): E11.9 - Type 2 diabetes mellitus without complications Status: Chronic Assessment and Plan: * follow accu-cheks * glycemic control per hospitalist Will continue to follow. L Subjective Date/time seen: 07/26/25 09:32 Interval history: Follow-up for acute kidney injury/acute renal failure and hyperkalemia. Tolerated dialysis treatment yesterday without any issues or problems; no apparent distress voiced at the time of my visit; no acute issues/events overnight or earlier this morning; overall, feels reasonably well. Exam 2 Narrative: General: elderly but large and WD/WN male in NAD Heart: normal S1 and S2; no rub Lungs: clear anteriorly Abdomen: soft, nontender, nondistended, positive bowel sounds Extremities: no cyanosis or clubbing; 1+ edema (upper and lower extremities) Skin: venous stasis changes over BLEs Objective Data Vital Signs Vital Signs: Vital Signs Temp Pulse Resp BP Pulse Ox O2 Del Method FiO2 07/26/25 09:22 98.2 F 80 19 90 07/26/25 08:27 76 07/26/25 08:26 76 07/26/25 08:15 76 115/47 L 07/26/25 08:00 76 07/26/25 08:00 80 07/26/25 04:35 98.1 F 77 12 101/43 L 90 07/26/25 04:00 78 07/26/25 00:00 76 07/25/25 23:30 97.6 F 79 12 101/40 L 90 07/25/25 20:23 90 Room Air 21 07/25/25 20:15 98.1 F 78 12 91/41 L 91 07/25/25 20:00 78 07/25/25 20:00 Room Air 07/25/25 17:51 83 07/25/25 16:00 78 07/25/25 14:09 78 116/42 L 07/25/25 13:12 97.5 F L 69 18 135/66 98 07/25/25 13:04 686 H 142/65 H 07/25/25 13:00 67 139/68 07/25/25 12:45 71 136/72 Intake/Output Intake/Output: Intake & Output 07/23/25 07/24/25 07/25/25 07/26/25 23:59 23:59 23:59 23:59 Intake Total 1280 1510 1020 740 Output Total 2393 300 1000 Balance -1113 1210 20 740 Meds/Results Medications: Active Medications Generic Name Dose Route Start Last Admin Trade Name Freq PRN Reason Stop Dose Admin Acetaminophen 1,000 mg 07/16/25 09:58 07/25/25 13:58 Acetaminophen 500 Mg Tablet PO 1,000 mg Q6H PRN Administration Fever Acetaminophen 500 mg 07/19/25 14:13 07/23/25 15:38 Acetaminophen 500 Mg Tablet PO 500 mg Q6H PRN Administration Pain Rated 1-3 Albuterol/Ipratropium 3 ml 07/17/25 20:40 07/20/25 00:58 Ipratropium 0.5 Mg/Albuterol Sulfate 2.5 Mg Ampul.Neb 3 Ml INHALATION 3 ml Q6HRT PRN Administration wheezing Amiodarone HCl 200 mg 07/15/25 02:30 07/26/25 08:26 Amiodarone Hcl 200 Mg Tablet PO 200 mg DAILY SALMA Administration Bisacodyl 5 mg 07/22/25 13:35 07/26/25 08:26 Bisacodyl 5 Mg Tablet Ec PO 5 mg QAM SALMA Administration Calcium Acetate 2,001 mg 07/24/25 12:00 07/26/25 11:53 Calcium Acetate 667 Mg Tablet PO 2,001 mg TIDWM SALMA Administration Carvedilol 12.5 mg 07/15/25 09:00 07/26/25 08:27 Carvedilol 12.5 Mg Tablet PO 12.5 mg BID SALMA Administration Dextrose 12.5 gm 07/15/25 01:20 Dextrose 50% 25 Gm/50 Ml Syringe IV PUSH PRN PRN Hypoglycemia Protocol Epoetin Sd-epbx 20,000 units 07/25/25 09:00 07/25/25 10:57 Epoetin Sd-Epbx 20,000 Units/Ml Vial IV PUSH 20,000 units MOWEFR@09 SALMA Administration Glucagon 1 mg 07/15/25 01:20 Glucagon For Inj 1 Mg Vial IM PRN PRN Hypoglycemia Protocol Glucose 15 gm 07/15/25 01:20 Glucose Oral Gel 15 Gm Of Glucse In 37.5 Gm Tube PO PRN PRN Hypoglycemia Protocol Hydromorphone HCl 1 mg 07/19/25 14:13 Hydromorphone Hcl Inj (*Crx) 1 Mg/Ml Syr IV PUSH Q2H PRN Breakthrough Pain Rated 7-10 or NPO Hydromorphone HCl 0.5 mg 07/19/25 14:13 Hydromorphone Hcl Inj (*Crx) 1 Mg/Ml Syr IV PUSH Q2H PRN Breakthrough Pain Rated 4-6 or NPO Dextrose 1,000 mls @ 100 mls/hr 07/15/25 01:20 Dextrose 5% 1,000 Ml IVPB PRN PRN Hypoglycemia Protocol Albumin Human 50 mls @ 999 mls/hr 07/15/25 15:32 Albutein IVPB 08/14/25 15:31 Q10M PRN HYPOTENSION Piperacillin Sod/Tazobactam 50 mls @ 100 mls/hr 07/20/25 14:00 07/26/25 05:12 Sod 2.25 gm/ Sodium Chloride IVPB 100 mls/hr Q8H SALMA Administration Insulin Aspart 3 - 6 units 07/15/25 08:00 07/26/25 11:55 Insulin Aspart (*Bkc) 100 Units/Ml SUB-Q Not Given TIDWM [facility] Protocol Insulin Aspart 1 - 3 units 07/15/25 21:00 07/25/25 21:00 Insulin Aspart (*Bkc) 100 Units/Ml SUB-Q Not Given HS [facility] Protocol Linezolid 600 mg 07/22/25 14:00 07/26/25 08:26 Linezolid 600 Mg Tablet PO 600 mg Q12HR SALMA Administration Magnesium Hydroxide 30 ml 07/16/25 08:39 Magnesium Hydroxide Susp 30 Ml Udc PO DAILY PRN Constipation Naloxone HCl 0.1 mg 07/19/25 14:13 Naloxone Hcl 0.4 Mg/Ml Vial IV PUSH Q2M PRN Opiate Reversal Oxycodone HCl 2.5 mg 07/19/25 14:13 07/21/25 21:03 Oxycodone Hcl (*Crx) 2.5 Mg Tab Ir PO 2.5 mg Q4H PRN Administration Pain Rated 4-6 Oxycodone HCl 5 mg 07/19/25 14:13 07/26/25 10:56 Oxycodone Hcl (*Crx) 5 Mg Tab Ir PO 5 mg Q4H PRN Administration Pain Rated 7-10 Polyethylene Glycol 17 gm 07/16/25 09:00 07/26/25 08:27 Polyethylene Glycol 3350 17 Gm Powd.Pack PO 17 gm QAM SALMA Administration Rivaroxaban 20 mg 07/15/25 17:00 07/17/25 16:55 Rivaroxaban 20 Mg Tablet PO 20 mg On Hold: 07/18/25 10:26 DAILY@1700 SALMA Administration Sodium Chloride 10 ml 07/19/25 22:00 07/26/25 05:13 Central Line Flush IV PUSH 10 ml Q8HR SALMA Administration Sodium Chloride 10 ml 07/19/25 17:03 07/24/25 00:32 Central Line Flush IV PUSH 10 ml PRN PRN Administration with TPN bag changes Sodium Chloride 20 ml 07/19/25 17:03 07/25/25 04:35 Central Line Flush IV PUSH 20 ml PRN PRN Administration after blood draws Radiology Results: ITS Impressions Cervical Spine CT 07/15/25 07:00 IMPRESSION: 1. No acute abnormality of the cervical spine. 2: Severe cervical spondylosis. Head CT 07/15/25 07:03 IMPRESSION: 1. No acute intracranial abnormality. Shoulder X-Ray 07/15/25 07:39 Impression: 1: No acute fracture. Wrist X-Ray 07/15/25 07:40 Impression: 1: No acute fracture. Elbow X-Ray 07/15/25 07:41 Impression: 1: No acute fracture. Renal Ultrasound 07/15/25 13:09 Impression: 1: Unremarkable renal ultrasound. No stones, masses or hydronephrosis. Central Venous Line 07/19/25 13:50 IMPRESSION: Fluoroscopy used during portacatheter placement. Scrotum Ultrasound 07/20/25 19:05 IMPRESSION: 1. Diffuse scrotal wall thickening. Consider an infectious/inflammatory process such as cellulitis, lymphedema or systemic causes like cirrhosis, nephrotic syndrome or generalized edema. Soft Tissue Ultrasound 07/20/25 19:10 Impression: 1: Area of superficial venous thrombosis corresponds to the area of left arm swelling. Chest X-Ray 07/22/25 17:19 Impression: 1: Developing left basilar airspace disease, consistent with pneumonia. Labs Labs: Laboratory Tests 07/26/25 04:36 07/26/25 04:36 Calcium 9.2 Phosphorus 4.5 Magnesium 2.3 Total Bilirubin 0.5 AST 121 H ALT 46 Alkaline Phosphatase 75 Total Creatine Kinase 1492 H Total Protein 5.2 L Albumin 2.6 L
[2025-07-26] MEDS: oxyCODONE HCL (*CRX) 5 MG TAB IR PO ×3 (10:56→21:50)
--- NOTE | 2025-07-26 14:19 | WPDINFPN2 ---
Progress Note: A&P Assessment and Plan (1) Leukocytosis: Qualifiers: Leukocytosis type: unspecified Qualified Code(s): D72.829 - Elevated white blood cell count, unspecified Code(s): D72.829 - Elevated white blood cell count, unspecified Status: Acute (2) Cellulitis of scrotum: Code(s): N49.2 - Inflammatory disorders of scrotum Status: Acute (3) Hematoma of right upper extremity: Code(s): S40.021A - Contusion of right upper arm, initial encounter Status: Acute (4) Anemia: Code(s): D64.9 - Anemia, unspecified Status: Acute (5) Rhabdomyolysis: Qualifiers: Rhabdomyolysis type: non-traumatic Qualified Code(s): M62.82 - Rhabdomyolysis Code(s): M62.82 - Rhabdomyolysis Status: Acute (6) Acute kidney injury: Code(s): N17.9 - Acute kidney failure, unspecified Status: Acute (7) Transaminitis: Code(s): R74.01 - Elevation of levels of liver transaminase levels Status: Acute (8) Chronic hyponatremia: Code(s): E87.1 - Hypo-osmolality and hyponatremia Status: Acute (9) Hyperkalemia: Code(s): E87.5 - Hyperkalemia Status: Acute (10) Constipation: Code(s): K59.00 - Constipation, unspecified Status: Acute Plan 1. scrotal cellulitis--cx unrevealing--ongoing 2. morbid obesity 3. [place] 4. rhabdomyolysis 5. leukocytosis--multifactorial 6. RUE hematoma 7. ?pneumonia RECOMMENDATIONS continue linezolid and zosyn add miconazole cream to scrotal region add micafungin blood cxs 07/14 neg and final d/w pharmacist Pt was seen via video telehealth consultation with the assistance of staff, chart, data and patient independently reviewed. Patient was located at [facility] while I was located in my [place] office. Received verbal consent from patient. Subjective Date/time seen: 07/26/25 14:19 Interval history: No scrotal pain or itching No abd pain No fevers Exam Narrative: Gen: NAD, on room air, non-toxic abd obese soft Scrotum with erythema, purulence, macerated Objective Data Vital Signs Vital Signs: Vital Signs - 24 hr 07/25/25 16:00 07/25/25 17:51 07/25/25 20:00 Temperature Pulse Rate 78 83 Respiratory Rate Blood Pressure Pulse Oximetry Oxygen Delivery Room Air Fraction of Inspired Oxygen 07/25/25 20:00 07/25/25 20:15 07/25/25 20:23 Temperature 98.1 F Pulse Rate 78 78 Respiratory Rate 12 Blood Pressure 91/41 L Pulse Oximetry 91 90 Oxygen Delivery Room Air Fraction of Inspired Oxygen 21 07/25/25 23:30 07/26/25 00:00 07/26/25 04:00 Temperature 97.6 F Pulse Rate 79 76 78 Respiratory Rate 12 Blood Pressure 101/40 L Pulse Oximetry 90 Oxygen Delivery Fraction of Inspired Oxygen 07/26/25 04:35 07/26/25 08:00 07/26/25 08:00 Temperature 98.1 F Pulse Rate 77 80 76 Respiratory Rate 12 Blood Pressure 101/43 L Pulse Oximetry 90 Oxygen Delivery Fraction of Inspired Oxygen 07/26/25 08:15 07/26/25 08:26 07/26/25 08:27 Temperature Pulse Rate 76 76 76 Respiratory Rate Blood Pressure 115/47 L Pulse Oximetry Oxygen Delivery Fraction of Inspired Oxygen 07/26/25 09:42 07/26/25 12:00 Temperature 98.2 F Pulse Rate 80 80 Respiratory Rate 19 Blood Pressure Pulse Oximetry 90 Oxygen Delivery Fraction of Inspired Oxygen Intake/Output Intake/Output: Intake & Output 07/23/25 07/24/25 07/25/25 07/26/25 23:59 23:59 23:59 23:59 Intake Total 1280 1510 1020 910 Output Total 2393 300 1000 Balance -1113 1210 20 910 Meds/Results Medications: Active Medications Generic Name Dose Route Start Last Admin Trade Name Freq PRN Reason Stop Dose Admin Acetaminophen 1,000 mg 07/16/25 09:58 07/25/25 13:58 Acetaminophen 500 Mg Tablet PO 1,000 mg Q6H PRN Administration Fever Acetaminophen 500 mg 07/19/25 14:13 07/23/25 15:38 Acetaminophen 500 Mg Tablet PO 500 mg Q6H PRN Administration Pain Rated 1-3 Albuterol/Ipratropium 3 ml 07/17/25 20:40 07/20/25 00:58 Ipratropium 0.5 Mg/Albuterol Sulfate 2.5 Mg Ampul.Neb 3 Ml INHALATION 3 ml Q6HRT PRN Administration wheezing Amiodarone HCl 200 mg 07/15/25 02:30 07/26/25 08:26 Amiodarone Hcl 200 Mg Tablet PO 200 mg DAILY SALMA Administration Bisacodyl 5 mg 07/22/25 13:35 07/26/25 08:26 Bisacodyl 5 Mg Tablet Ec PO 5 mg QAM SALMA Administration Calcium Acetate 2,001 mg 07/24/25 12:00 07/26/25 11:53 Calcium Acetate 667 Mg Tablet PO 2,001 mg TIDWM SALMA Administration Carvedilol 12.5 mg 07/15/25 09:00 07/26/25 08:27 Carvedilol 12.5 Mg Tablet PO 12.5 mg BID SALMA Administration Dextrose 12.5 gm 07/15/25 01:20 Dextrose 50% 25 Gm/50 Ml Syringe IV PUSH PRN PRN Hypoglycemia Protocol Epoetin Sd-epbx 20,000 units 07/25/25 09:00 07/25/25 10:57 Epoetin Sd-Epbx 20,000 Units/Ml Vial IV PUSH 20,000 units MOWEFR@09 SALMA Administration Glucagon 1 mg 07/15/25 01:20 Glucagon For Inj 1 Mg Vial IM PRN PRN Hypoglycemia Protocol Glucose 15 gm 07/15/25 01:20 Glucose Oral Gel 15 Gm Of Glucse In 37.5 Gm Tube PO PRN PRN Hypoglycemia Protocol Hydromorphone HCl 1 mg 07/19/25 14:13 Hydromorphone Hcl Inj (*Crx) 1 Mg/Ml Syr IV PUSH Q2H PRN Breakthrough Pain Rated 7-10 or NPO Hydromorphone HCl 0.5 mg 07/19/25 14:13 Hydromorphone Hcl Inj (*Crx) 1 Mg/Ml Syr IV PUSH Q2H PRN Breakthrough Pain Rated 4-6 or NPO Dextrose 1,000 mls @ 100 mls/hr 07/15/25 01:20 Dextrose 5% 1,000 Ml IVPB PRN PRN Hypoglycemia Protocol Albumin Human 50 mls @ 999 mls/hr 07/15/25 15:32 Albutein IVPB 08/14/25 15:31 Q10M PRN HYPOTENSION Piperacillin Sod/Tazobactam 50 mls @ 100 mls/hr 07/20/25 14:00 07/26/25 14:00 Sod 2.25 gm/ Sodium Chloride IVPB 100 mls/hr Q8H SALMA Administration Micafungin Sodium 100 mg/ 100 mls @ 100 mls/hr 07/26/25 15:00 Sodium Chloride IVPB 07/30/25 15:59 DAILY@1500 SALMA Insulin Aspart 3 - 6 units 07/15/25 08:00 07/26/25 11:55 Insulin Aspart (*Bkc) 100 Units/Ml SUB-Q Not Given TIDWM [facility] Protocol Insulin Aspart 1 - 3 units 07/15/25 21:00 07/25/25 21:00 Insulin Aspart (*Bkc) 100 Units/Ml SUB-Q Not Given HS [facility] Protocol Linezolid 600 mg 07/22/25 14:00 07/26/25 08:26 Linezolid 600 Mg Tablet PO 600 mg Q12HR SALMA Administration Magnesium Hydroxide 30 ml 07/16/25 08:39 Magnesium Hydroxide Susp 30 Ml Udc PO DAILY PRN Constipation Miconazole Nitrate 1 applic 07/26/25 14:00 Miconazole Nitrate 2% Cream 30 Gm Tube TOPICAL Q8HR [facility] Naloxone HCl 0.1 mg 07/19/25 14:13 Naloxone Hcl 0.4 Mg/Ml Vial IV PUSH Q2M PRN Opiate Reversal Oxycodone HCl 2.5 mg 07/19/25 14:13 07/21/25 21:03 Oxycodone Hcl (*Crx) 2.5 Mg Tab Ir PO 2.5 mg Q4H PRN Administration Pain Rated 4-6 Oxycodone HCl 5 mg 07/19/25 14:13 07/26/25 10:56 Oxycodone Hcl (*Crx) 5 Mg Tab Ir PO 5 mg Q4H PRN Administration Pain Rated 7-10 Polyethylene Glycol 17 gm 07/16/25 09:00 07/26/25 08:27 Polyethylene Glycol 3350 17 Gm Powd.Pack PO 17 gm QAM SALMA Administration Rivaroxaban 20 mg 07/15/25 17:00 07/17/25 16:55 Rivaroxaban 20 Mg Tablet PO 20 mg On Hold: 07/18/25 10:26 DAILY@1700 [facility] Administration Sodium Chloride 10 ml 07/19/25 22:00 07/26/25 14:12 Central Line Flush IV PUSH 10 ml Q8HR SALMA Administration Sodium Chloride 10 ml 07/19/25 17:03 07/24/25 00:32 Central Line Flush IV PUSH 10 ml PRN PRN Administration with TPN bag changes Sodium Chloride 20 ml 07/19/25 17:03 07/25/25 04:35 Central Line Flush IV PUSH 20 ml PRN PRN Administration after blood draws Radiology Results: ITS Impressions Cervical Spine CT 07/15/25 07:00 IMPRESSION: 1. No acute abnormality of the cervical spine. 2: Severe cervical spondylosis. Head CT 07/15/25 07:03 IMPRESSION: 1. No acute intracranial abnormality. Shoulder X-Ray 07/15/25 07:39 Impression: 1: No acute fracture. Wrist X-Ray 07/15/25 07:40 Impression: 1: No acute fracture. Elbow X-Ray 07/15/25 07:41 Impression: 1: No acute fracture. Renal Ultrasound 07/15/25 13:09 Impression: 1: Unremarkable renal ultrasound. No stones, masses or hydronephrosis. Central Venous Line 07/19/25 13:50 IMPRESSION: Fluoroscopy used during portacatheter placement. Scrotum Ultrasound 07/20/25 19:05 IMPRESSION: 1. Diffuse scrotal wall thickening. Consider an infectious/inflammatory process such as cellulitis, lymphedema or systemic causes like cirrhosis, nephrotic syndrome or generalized edema. Soft Tissue Ultrasound 07/20/25 19:10 Impression: 1: Area of superficial venous thrombosis corresponds to the area of left arm swelling. Chest X-Ray 07/22/25 17:19 Impression: 1: Developing left basilar airspace disease, consistent with pneumonia. Labs Labs: Laboratory Results - last 24 hr 07/25/25 07/25/25 07/26/25 16:46 20:10 04:36 WBC 20.6 H RBC 2.77 L Hgb 8.6 L Hct 27.7 L MCV 100.0 MCH 31.0 MCHC 31.0 L RDW 14.2 Plt Count 220 MPV 9.8 Immature Gran % (Auto) Not Reportable Neut % (Auto) Not Reportable Lymph % (Auto) Not Reportable Graves % (Auto) Not Reportable Eos % (Auto) Not Reportable Baso % (Auto) Not Reportable Lymph # (Auto) Not Reportable [place] # (Auto) Not Reportable Eos # (Auto) Not Reportable Baso # (Auto) Not Reportable Abs Immat Gran (auto) Not Reportable Absolute Neuts (auto) Not Reportable Absolute Nucleated RBC Not Reportable Total Counted 100 Neutrophils % (Manual) 72 Band Neutrophils % 8 H Lymphocytes % (Manual) 10.0 L Monocytes % (Manual) 8 Eosinophils % (Manual) 1 Metamyelocytes % 1 Nucleated RBC % Not Reportable Abs Neuts (Manual) 16.48 H Abs Lymphs (Manual) 2.06 Abs Monocytes (Manual) 1.64 H Absolute Eos (Manual) 0.20 Nucleated RBCs 1 Platelet Estimate Adequate Polychromasia 1+ Hypochromasia 1+ Anisocytosis 1+ Schistocytes None seen Sodium 130 L Potassium 4.7 Chloride 98 Carbon Dioxide 30 Anion Gap 2 L BUN 54 H D Creatinine 4.26 H Estim Creat Clear Calc 27 Estimated GFR 14 L Glucose 151 H POC Capillary Glucose 149 H 184 H Calcium 9.2 Phosphorus 4.5 Magnesium 2.3 Total Bilirubin 0.5 AST 121 H ALT 46 Alkaline Phosphatase 75 Total Creatine Kinase 1492 H Total Protein 5.2 L Albumin 2.6 L 07/26/25 07/26/25 07/26/25 07:47 07:58 11:47 WBC RBC Hgb Hct MCV MCH MCHC RDW Plt Count MPV Immature Gran % (Auto) Neut % (Auto) Lymph % (Auto) [place] % (Auto) Eos % (Auto) Baso % (Auto) Lymph # (Auto) [place] # (Auto) Eos # (Auto) Baso # (Auto) Abs Immat Gran (auto) Absolute Neuts (auto) Absolute Nucleated RBC Total Counted Neutrophils % (Manual) Band Neutrophils % Lymphocytes % (Manual) Monocytes % (Manual) Eosinophils % (Manual) Metamyelocytes % Nucleated RBC % Abs Neuts (Manual) Abs Lymphs (Manual) Abs Monocytes (Manual) Absolute Eos (Manual) Nucleated RBCs Platelet Estimate Polychromasia Hypochromasia Anisocytosis Schistocytes Sodium Potassium Chloride Carbon Dioxide Anion Gap BUN Creatinine Estim Creat Clear Calc Estimated GFR Glucose POC Capillary Glucose 138 H 137 H 168 H Calcium Phosphorus Magnesium Total Bilirubin AST ALT Alkaline Phosphatase Total Creatine Kinase Total Protein Albumin
[2025-07-26] MEDS: MICAFUNGIN SODIUM 100 MG in SODIUM CHLORIDE 0.9% IV 100 ML IVPB (14:56)
[2025-07-26] MEDS: MICONAZOLE NITRATE 2% CREAM 30 GM TUBE 1 APPLIC TOPICAL ×2 (14:57→21:53)
--- NOTE | 2025-07-26 15:06 | WNDPHOTO ---
PHOTO ONLY - See Nursing Notes and/ or assessments for documentation.
--- NOTE | 2025-07-26 15:50 | PC.NURSE ---
On 07/26/25, the student, [Elvia Sherman], provided care and completed [facility] documentation on this patient. I have reviewed the student's documentation and agree with the findings.
--- NOTE | 2025-07-26 16:55 | P.PNIM_ITS ---
Progress Note: A&P Assessment and Plan (1) Actinic keratosis: Code(s): L57.0 - Actinic keratosis Status: Acute (2) Acute kidney injury: Code(s): N17.9 - Acute kidney failure, unspecified Status: Acute (3) Cellulitis of scrotum: Code(s): N49.2 - Inflammatory disorders of scrotum Status: Acute (4) Rhabdomyolysis: Qualifiers: Rhabdomyolysis type: non-traumatic Qualified Code(s): M62.82 - Rhabdomyolysis Code(s): M62.82 - Rhabdomyolysis Status: Acute Plan Continue dialysis p.r.n. per Nephrology, disposition unknown and pending. He is euvolemic. Leukocytosis improving. Infectious Disease continues to follow. He has erythema, macerations and peer limits at the exposed skin of the scrotal sac. Blood cultures 07/14 negative, final. Continue linezolid and Zosyn, miconazole cream added to scrotal region along with micafungin. Continue to follow with In fectious Disease and infectious disease pharmacist. Patient has no pain. Diabetes: Continue Accu-Cheks Starting Eliquis on 07/26/[address] Xarelto. Was previously on hold due to anemia. Continue to monitor transaminitis. Subjective Date/time seen: 07/26/25 16:55 Interval history: No major acute overnight events. Patient is sitting up in bed and has no complaints. He denies fever, denies new rash, denies shortness of breath, denies chest pain. Denies any pain on urination or pain in the scrotum at all. Review of Systems Review of Systems: All systems reviewed & are unremarkable except as noted in HPI and below (Subjective) Exam Const: General: comfortable and no acute distress Eyes: Pupils: Equal, round and reactive pupils present Neck: Neck: supple Resp: Effort & Inspection: normal respiratory effort Cardio: Rate: regular rate Rhythm: regular rhythm GI: GI Palp: Yes Soft to palpation and No Tenderness to palpation present (GI) : Other: Erythema, maceration and purulence of the scrotal sac. Skin: Other: Rough scaly patches diffusely Objective Data Vital Signs Vital Signs: Vital Signs - 24 hr 07/25/25 17:51 07/25/25 20:00 09/08/25 20:00 Temperature Pulse Rate 83 78 Respiratory Rate Blood Pressure Pulse Oximetry Oxygen Delivery Room Air Fraction of Inspired Oxygen 07/25/25 20:15 07/25/25 20:23 07/25/25 23:30 Temperature 98.1 F 97.6 F Pulse Rate 78 79 Respiratory Rate 12 12 Blood Pressure 91/41 L 101/40 L Pulse Oximetry 91 90 90 Oxygen Delivery Room Air Fraction of Inspired Oxygen 21 07/26/25 00:00 07/26/25 04:00 07/26/25 04:35 Temperature 98.1 F Pulse Rate 76 78 77 Respiratory Rate 12 Blood Pressure 101/43 L Pulse Oximetry 90 Oxygen Delivery Fraction of Inspired Oxygen 07/26/25 08:00 07/26/25 08:00 07/26/25 08:15 Temperature Pulse Rate 80 76 76 Respiratory Rate Blood Pressure 115/47 L Pulse Oximetry Oxygen Delivery Fraction of Inspired Oxygen 07/26/25 08:26 07/26/25 08:27 07/26/25 09:42 Temperature 98.2 F Pulse Rate 76 76 80 Respiratory Rate 19 Blood Pressure Pulse Oximetry 90 Oxygen Delivery Fraction of Inspired Oxygen 07/26/25 12:00 07/26/25 16:00 Temperature Pulse Rate 80 73 Respiratory Rate Blood Pressure Pulse Oximetry Oxygen Delivery Fraction of Inspired Oxygen Intake/Output Intake/Output: Intake & Output 07/23/25 07/24/25 07/25/25 07/26/25 23:59 23:59 23:59 23:59 Intake Total 1280 1510 1020 910 Output Total 2393 300 1000 Balance -1113 1210 20 910 Meds/Results Medications: Active Medications Generic Name Dose Route Start Last Admin Trade Name Freq PRN Reason Stop Dose Admin Acetaminophen 1,000 mg 07/16/25 09:58 07/25/25 13:58 Acetaminophen 500 Mg Tablet PO 1,000 mg Q6H PRN Administration Fever Acetaminophen 500 mg 07/19/25 14:13 07/23/25 15:38 Acetaminophen 500 Mg Tablet PO 500 mg Q6H PRN Administration Pain Rated 1-3 Albuterol/Ipratropium 3 ml 07/17/25 20:40 07/20/25 00:58 Ipratropium 0.5 Mg/Albuterol Sulfate 2.5 Mg Ampul.Neb 3 Ml INHALATION 3 ml Q6HRT PRN Administration wheezing Amiodarone HCl 200 mg 07/15/25 02:30 07/26/25 08:26 Amiodarone Hcl 200 Mg Tablet PO 200 mg DAILY SALMA Administration Bisacodyl 5 mg 07/22/25 13:35 07/26/25 08:26 Bisacodyl 5 Mg Tablet Ec PO 5 mg QAM SALMA Administration Calcium Acetate 2,001 mg 07/24/25 12:00 07/26/25 11:53 Calcium Acetate 667 Mg Tablet PO 2,001 mg TIDWM SALMA Administration Carvedilol 12.5 mg 07/15/25 09:00 07/26/25 08:27 Carvedilol 12.5 Mg Tablet PO 12.5 mg BID SALMA Administration Dextrose 12.5 gm 07/15/25 01:20 Dextrose 50% 25 Gm/50 Ml Syringe IV PUSH PRN PRN Hypoglycemia Protocol Epoetin Sd-epbx 20,000 units 07/25/25 09:00 07/25/25 10:57 Epoetin Sd-Epbx 20,000 Units/Ml Vial IV PUSH 20,000 units MOWEFR@09 SALMA Administration Glucagon 1 mg 07/15/25 01:20 Glucagon For Inj 1 Mg Vial IM PRN PRN Hypoglycemia Protocol Glucose 15 gm 07/15/25 01:20 Glucose Oral Gel 15 Gm Of Glucse In 37.5 Gm Tube PO PRN PRN Hypoglycemia Protocol Hydromorphone HCl 1 mg 07/19/25 14:13 Hydromorphone Hcl Inj (*Crx) 1 Mg/Ml Syr IV PUSH Q2H PRN Breakthrough Pain Rated 7-10 or NPO Hydromorphone HCl 0.5 mg 07/19/25 14:13 Hydromorphone Hcl Inj (*Crx) 1 Mg/Ml Syr IV PUSH Q2H PRN Breakthrough Pain Rated 4-6 or NPO Dextrose 1,000 mls @ 100 mls/hr 07/15/25 01:20 Dextrose 5% 1,000 Ml IVPB PRN PRN Hypoglycemia Protocol Albumin Human 50 mls @ 999 mls/hr 07/15/25 15:32 Albutein IVPB 08/14/25 15:31 Q10M PRN HYPOTENSION Piperacillin Sod/Tazobactam 50 mls @ 100 mls/hr 07/20/25 14:00 07/26/25 14:00 Sod 2.25 gm/ Sodium Chloride IVPB 100 mls/hr Q8H SALMA Administration Micafungin Sodium 100 mg/ 100 mls @ 100 mls/hr 07/26/25 15:00 07/26/25 14:56 Sodium Chloride IVPB 07/30/25 15:59 100 mls/hr DAILY@1500 SALMA Administration Insulin Aspart 3 - 6 units 07/15/25 08:00 07/26/25 11:55 Insulin Aspart (*Bkc) 100 Units/Ml SUB-Q Not Given TIDWM [facility] Protocol Insulin Aspart 1 - 3 units 07/15/25 21:00 07/25/25 21:00 Insulin Aspart (*Bkc) 100 Units/Ml SUB-Q Not Given HS [facility] Protocol Linezolid 600 mg 07/22/25 14:00 07/26/25 08:26 Linezolid 600 Mg Tablet PO 600 mg Q12HR SALMA Administration Magnesium Hydroxide 30 ml 07/16/25 08:39 Magnesium Hydroxide Susp 30 Ml Udc PO DAILY PRN Constipation Miconazole Nitrate 1 applic 07/26/25 14:00 07/26/25 14:57 Miconazole Nitrate 2% Cream 30 Gm Tube TOPICAL 1 applic Q8HR SALMA Administration Naloxone HCl 0.1 mg 07/19/25 14:13 Naloxone Hcl 0.4 Mg/Ml Vial IV PUSH Q2M PRN Opiate Reversal Oxycodone HCl 2.5 mg 07/19/25 14:13 07/21/25 21:03 Oxycodone Hcl (*Crx) 2.5 Mg Tab Ir PO 2.5 mg Q4H PRN Administration Pain Rated 4-6 Oxycodone HCl 5 mg 07/19/25 14:13 07/26/25 10:56 Oxycodone Hcl (*Crx) 5 Mg Tab Ir PO 5 mg Q4H PRN Administration Pain Rated 7-10 Polyethylene Glycol 17 gm 07/16/25 09:00 07/26/25 08:27 Polyethylene Glycol 3350 17 Gm Powd.Pack PO 17 gm QAM SALMA Administration Rivaroxaban 20 mg 07/15/25 17:00 07/17/25 16:55 Rivaroxaban 20 Mg Tablet PO 20 mg On Hold: 07/18/25 10:26 DAILY@1700 [facility] Administration Sodium Chloride 10 ml 07/19/25 22:00 07/26/25 14:12 Central Line Flush IV PUSH 10 ml Q8HR SALMA Administration Sodium Chloride 10 ml 07/19/25 17:03 07/24/25 00:32 Central Line Flush IV PUSH 10 ml PRN PRN Administration with TPN bag changes Sodium Chloride 20 ml 07/19/25 17:03 07/25/25 04:35 Central Line Flush IV PUSH 20 ml PRN PRN Administration after blood draws Radiology Results: ITS Impressions Cervical Spine CT 07/15/25 07:00 IMPRESSION: 1. No acute abnormality of the cervical spine. 2: Severe cervical spondylosis. Head CT 07/15/25 07:03 IMPRESSION: 1. No acute intracranial abnormality. Shoulder X-Ray 07/15/25 07:39 Impression: 1: No acute fracture. Wrist X-Ray 07/15/25 07:40 Impression: 1: No acute fracture. Elbow X-Ray 07/15/25 07:41 Impression: 1: No acute fracture. Renal Ultrasound 07/15/25 13:09 Impression: 1: Unremarkable renal ultrasound. No stones, masses or hydronephrosis. Central Venous Line 07/19/25 13:50 IMPRESSION: Fluoroscopy used during portacatheter placement. Scrotum Ultrasound 07/20/25 19:05 IMPRESSION: 1. Diffuse scrotal wall thickening. Consider an infectious/inflammatory process such as cellulitis, lymphedema or systemic causes like cirrhosis, nephrotic syndrome or generalized edema. Soft Tissue Ultrasound 07/20/25 19:10 Impression: 1: Area of superficial venous thrombosis corresponds to the area of left arm swelling. Chest X-Ray 07/22/25 17:19 Impression: 1: Developing left basilar airspace disease, consistent with pneumonia. Labs Labs: Laboratory Results - last 24 hr 07/25/25 07/26/25 07/26/25 20:10 04:36 07:47 WBC 20.6 H RBC 2.77 L Hgb 8.6 L Hct 27.7 L MCV 100.0 MCH 31.0 MCHC 31.0 L RDW 14.2 Plt Count 220 MPV 9.8 Immature Gran % (Auto) Not Reportable Neut % (Auto) Not Reportable Lymph % (Auto) Not Reportable [place] % (Auto) Not Reportable Eos % (Auto) Not Reportable Baso % (Auto) Not Reportable Lymph # (Auto) Not Reportable [place] # (Auto) Not Reportable Eos # (Auto) Not Reportable Baso # (Auto) Not Reportable Abs Immat Gran (auto) Not Reportable Absolute Neuts (auto) Not Reportable Absolute Nucleated RBC Not Reportable Total Counted 100 Neutrophils % (Manual) 72 Band Neutrophils % 8 H Lymphocytes % (Manual) 10.0 L Monocytes % (Manual) 8 Eosinophils % (Manual) 1 Metamyelocytes % 1 Nucleated RBC % Not Reportable Abs Neuts (Manual) 16.48 H Abs Lymphs (Manual) 2.06 Abs Monocytes (Manual) 1.64 H Absolute Eos (Manual) 0.20 Nucleated RBCs 1 Platelet Estimate Adequate Polychromasia 1+ Hypochromasia 1+ Anisocytosis 1+ Schistocytes None seen Sodium 130 L Potassium 4.7 Chloride 98 Carbon Dioxide 30 Anion Gap 2 L BUN 54 H D Creatinine 4.26 H Estim Creat Clear Calc 27 Estimated GFR 14 L Glucose 151 H POC Capillary Glucose 184 H 138 H Calcium 9.2 Phosphorus 4.5 Magnesium 2.3 Total Bilirubin 0.5 AST 121 H ALT 46 Alkaline Phosphatase 75 Total Creatine Kinase 1492 H Total Protein 5.2 L Albumin 2.6 L 07/26/25 07/26/25 07:58 11:47 WBC RBC Hgb Hct MCV MCH MCHC RDW Plt Count MPV Immature Gran % (Auto) Neut % (Auto) Lymph % (Auto) [place] % (Auto) Eos % (Auto) Baso % (Auto) Lymph # (Auto) [place] # (Auto) Eos # (Auto) Baso # (Auto) Abs Immat Gran (auto) Absolute Neuts (auto) Absolute Nucleated RBC Total Counted Neutrophils % (Manual) Band Neutrophils % Lymphocytes % (Manual) Monocytes % (Manual) Eosinophils % (Manual) Metamyelocytes % Nucleated RBC % Abs Neuts (Manual) Abs Lymphs (Manual) Abs Monocytes (Manual) Absolute Eos (Manual) Nucleated RBCs Platelet Estimate Polychromasia Hypochromasia Anisocytosis Schistocytes Sodium Potassium Chloride Carbon Dioxide Anion Gap BUN Creatinine Estim Creat Clear Calc Estimated GFR Glucose POC Capillary Glucose 137 H 168 H Calcium Phosphorus Magnesium Total Bilirubin AST ALT Alkaline Phosphatase Total Creatine Kinase Total Protein Albumin
--- NOTE | 2025-07-26 20:27 | PC.NURSE ---
Hospitalist [employer]OO[employer] APPRENTICE Robbie notified pt previously had urinary catheter in place but was ordered to be removed by Dr. Anne if okay with hospitalist. Pt has bilateral decubitus ulcers and an open ulcer on his frontal scrotum, pt is completely incontinent of urine and it is not possible to keep wounds dry and clean of urine without urinary diversion in place. Purewick is not appropriate for this patient due to the location of scrotal wound. Order received to replace simmons at this time.
[2025-07-26] MEDS: LIDOCAINE 2% GEL UROJET 10 ML PKG MUCOUS MEM (20:56)
[2025-07-26] MEDS: APIXABAN 2.5 MG TABLET PO (21:50)
[2025-07-27] VITALS (34 sets, daily range): BP systolic 102–137; BP diastolic 35–95; PULSE 58–100; RESP 16–22; TEMP 36.3–37; O2SAT 90–93
[2025-07-27] MEDS: PIPERACILLIN/TAZOBACTAM SOD 2.25 GM in SODIUM CHLORIDE 0.9% IV 50 ML 100 ML IVPB ×3 (05:20→22:06)
[2025-07-27] MEDS: MICONAZOLE NITRATE 2% CREAM 30 GM TUBE 1 APPLIC TOPICAL ×3 (05:22→22:05)
[2025-07-27] MEDS: CENTRAL LINE FLUSH 20 ML IV PUSH (05:22)
[2025-07-27] MEDS: CENTRAL LINE FLUSH 10 ML IV PUSH ×3 (05:22→22:06)
[2025-07-27 05:26] LABS: Hematocrit 26.7 % (42.0-52.0); Hemoglobin 8.2 g/dL (14.0-18.0); Immature Granulocyte Percent A 7.2 % (0-0.5); Lymphocytes Absolute Auto 1.20 K/mm3 (0.9-3.2); Mean Corpuscular HGB Conc 30.7 g/dl (32-36); Mean Corpuscular Hemoglobin 31.1 pg (26-34); Mean Corpuscular Volume 101.1 fl (80-100); Nucleated Red Blood Cells Absolute Auto 0.020 K/mm3 (0.0-0.012); Nucleated Red Blood Cells Perc 0.1 % (0.0-0.2); Platelet Count Result 225 k/mm3 (150-375); Red Blood Count 2.64 M/mm3 (4.6-6.20); White Blood Count 20.8 K/mm3 (4.5-10.0)
[2025-07-27 05:57] LABS: Alanine Aminotransferase 45 U/L (6-50); Albumin Level 2.6 g/dL (3.5-5.1); Alkaline Phosphatase 74 U/L (38-126); Anion Gap 4 mmol/L (4-12); Aspartate Amino Transferase 113 U/L (17-59); Bilirubin,Total 0.5 mg/dL (0.2-1.3); Blood Urea Nitrogen 72 mg/dL (9-20); Calcium 9.4 mg/dL (8.4-10.2); Carbon Dioxide 28 mmol/L (22-30); Chloride 95 mmol/L (98-107); Estimated CRCL calculation 24 ml/min; Estimated Glomerular Filt Rate 12; Glucose 150 mg/dL (65-110); Magnesium 2.4 mg/dL (1.6-2.3); Potassium 5.0 mmol/L (3.4-5.0); Sodium 127 mmol/L (137-145); Total Protein 4.8 g/dL (6.3-8.2)
[2025-07-27] MEDS: oxyCODONE HCL (*CRX) 5 MG TAB IR PO ×4 (07:29→22:05)
--- NOTE | 2025-07-27 08:05 | PC.NURSE ---
Report given to Kurt GONZALEZhospice social worker nurse.
--- NOTE | 2025-07-27 08:32 | PCPTNOTE ---
Patient out of room for dialysis and unable to participate in PT at this time. PT will continue to follow.
--- NOTE | 2025-07-27 08:45 | P.PNNP_ITS ---
Progress Note: A&P Assessment and Plan (1) Acute kidney injury: Code(s): N17.9 - Acute kidney failure, unspecified Status: Acute Assessment and Plan: * no evidence of recovery at this time... * as noted by admission labs * progressively worsening as noted by trend of labs since hospitalization began * was also complicated by persistent hyperkalemia unresponsive to medical therapy and declining UOP * baseline creatinine normal: * 1.16mg/dL in October 2024 (by outpatient labs from PCP) * 1.30mg/dL in October 2022 ([facility]) * multifactorial etiology: * rhabdomyolysis * LAURY-I use prior to admission * diuretic use (lasix + spironolactone) prior to admission * prerenal factors(?) * infection/early sepsis(?) * other(?) * evaluation to date noted: * prerenal urine electrolytes * urine eosinophils negative * CPK as already noted * mild proteinuria * renal ultrasound without obstruction * s/p tunneled HD catheter placement (on 07/19/25) * continue Fri/Fri/Friday and PRN Friday schedule while hospitalized until discharge disposition known... * HD today * follow trend of repeat labs and UOP for to assess for potential renal recovery (2) Hyperkalemia: Code(s): E87.5 - Hyperkalemia Status: Acute Assessment and Plan: * resolved * recurrent since admission * poor response to medical management despite multiple rounds of therapy to date * better control with dialysis * follow trend of K+ (3) Rhabdomyolysis: Code(s): M62.82 - Rhabdomyolysis Status: Acute Assessment and Plan: * resolved * as noted by elevated CPK * likely related to prolonged downtime from fall * contributing to hyperkalemia and KAITLIN * CPK has been downtrending (4) Leukocytosis: Qualifiers: Leukocytosis type: unspecified Qualified Code(s): D72.829 - Elevated white blood cell count, unspecified Code(s): D72.829 - Elevated white blood cell count, unspecified Status: Acute Assessment and Plan: * initial concern was sepsis given associated lactic acidosis, tachycardia, tachypnea on admission * Infectious Disease following with recommendations noted * potential sources noted: * scrotal cellulitis * right arm hematoma * constipation * pneumonia * tinea cruris * elevated CPK * on antibiotics as outlined * cultures negative so far * follow trend of WBC (5) Anemia: Code(s): D64.9 - Anemia, unspecified Status: Acute Assessment and Plan: * due to previous IVF hydration, KAITLIN/ARF, and trauma/hematomas * Epogen with HD * follow trend of H/H (6) Hyponatremia: Code(s): E87.1 - Hypo-osmolality and hyponatremia Status: Acute Assessment and Plan: * acute (on chronic?) * noted as far back as October 2022 * however, on PCP labs in October 2024, sodium was 138mmol/L * suspect due more related to KAITLIN/ARF and diminished urine output/anuria (dilutional) * TSH and cortisol okay * dialysis helping to correct to some degree... (7) Atrial fibrillation and flutter: Code(s): I48.91 - Unspecified atrial fibrillation; I48.92 - Unspecified atrial flutter Status: Chronic Assessment and Plan: * paroxysmal in nature * on amiodarone * on anticoagulation - ok to resume? * however, would recommend coumadin or eliquis as opposed to xarelto given his KAITLIN (8) Transaminitis: Code(s): R74.01 - Elevation of levels of liver transaminase levels Status: Acute Assessment and Plan: * resolved * presumably related to rhabdomyolysis * holding statin * slow improvement noted (9) Hypertension: Code(s): I10 - Essential (primary) hypertension Status: Chronic Assessment and Plan: * reasonable control * running on the soft side at times * follow trend of hemodynamics (10) Diabetes: Code(s): E11.9 - Type 2 diabetes mellitus without complications Status: Chronic Assessment and Plan: * follow accu-cheks * glycemic control per hospitalist Will continue to follow. L Subjective Date/time seen: 07/27/25 08:45 Interval history: Follow-up for acute kidney injury/acute renal failure requiring [employer]/hemodialysis and hyperkalemia. Tolerating dialysis treatment at the time of my visit (seen on HD at 8:35am); no apparent distress voiced when seen; simmons catheter placed yesterday evening due to incontinence resulting in contamination of bilateral decubitus ulcers and scrotal ulcer; making some urine at this time. Exam 2 Narrative: General: elderly but large and WD/WN male in NAD Heart: normal S1 and S2; no rub Lungs: clear anteriorly Abdomen: soft, nontender, nondistended, positive bowel sounds Extremities: no cyanosis or clubbing; 1+ edema (upper and lower extremities) Skin: venous stasis changes over BLEs noted Objective Data Vital Signs Vital Signs: Vital Signs Temp Pulse Resp BP Pulse Ox O2 Del Method 07/27/25 08:45 72 122/52 L 07/27/25 08:30 70 123/51 L 07/27/25 08:23 71 123/51 L 07/27/25 08:16 98.4 F 72 18 117/52 L 07/27/25 07:46 97.7 F 74 22 H 106/42 L 90 07/27/25 06:00 97.3 F L 73 16 137/61 93 07/27/25 05:40 64 91 Autopap 07/27/25 04:00 58 L 07/27/25 02:16 68 91 Autopap 07/27/25 00:00 62 07/26/25 20:11 97.9 F 74 16 129/56 L 95 07/26/25 20:09 95 Room Air 07/26/25 20:00 82 07/26/25 17:39 75 07/26/25 17:15 97.5 F L 76 16 121/47 L 96 07/26/25 16:00 73 07/26/25 12:00 80 Intake/Output Intake/Output: Intake & Output 07/24/25 07/25/25 07/26/25 07/27/25 23:59 23:59 23:59 23:59 Intake Total 1510 1020 1999 690 Output Total 300 1000 350 Balance 1210 20 1999 340 Meds/Results Medications: Active Medications Generic Name Dose Route Start Last Admin Trade Name Freq PRN Reason Stop Dose Admin Acetaminophen 1,000 mg 07/16/25 09:58 07/25/25 13:58 Acetaminophen 500 Mg Tablet PO 1,000 mg Q6H PRN Administration Fever Acetaminophen 500 mg 07/19/25 14:13 07/23/25 15:38 Acetaminophen 500 Mg Tablet PO 500 mg Q6H PRN Administration Pain Rated 1-3 Albuterol/Ipratropium 3 ml 07/17/25 20:40 07/20/25 00:58 Ipratropium 0.5 Mg/Albuterol Sulfate 2.5 Mg Ampul.Neb 3 Ml INHALATION 3 ml Q6HRT PRN Administration wheezing Amiodarone HCl 200 mg 07/15/25 02:30 07/26/25 08:26 Amiodarone Hcl 200 Mg Tablet PO 200 mg DAILY SALMA Administration Apixaban 2.5 mg 07/26/25 21:00 07/26/25 21:50 Apixaban 2.5 Mg Tablet PO 2.5 mg Q12HR [facility] Administration Bisacodyl 5 mg 07/22/25 13:35 07/26/25 08:26 Bisacodyl 5 Mg Tablet Ec PO 5 mg QAM [facility] Administration Calcium Acetate 2,001 mg 07/24/25 12:00 07/27/25 08:37 Calcium Acetate 667 Mg Tablet PO Not Given TIDWM SALMA Carvedilol 12.5 mg 07/15/25 09:00 07/26/25 17:39 Carvedilol 12.5 Mg Tablet PO 12.5 mg BID SALMA Administration Dextrose 12.5 gm 07/15/25 01:20 Dextrose 50% 25 Gm/50 Ml Syringe IV PUSH PRN PRN Hypoglycemia Protocol Epoetin Sd-epbx 20,000 units 07/25/25 09:00 07/25/25 10:57 Epoetin Sd-Epbx 20,000 Units/Ml Vial IV PUSH 20,000 units MOWEFR@09 [facility] Administration Glucagon 1 mg 07/15/25 01:20 Glucagon For Inj 1 Mg Vial IM PRN PRN Hypoglycemia Protocol Glucose 15 gm 07/15/25 01:20 Glucose Oral Gel 15 Gm Of Glucse In 37.5 Gm Tube PO PRN PRN Hypoglycemia Protocol Hydromorphone HCl 1 mg 07/19/25 14:13 Hydromorphone Hcl Inj (*Crx) 1 Mg/Ml Syr IV PUSH Q2H PRN Breakthrough Pain Rated 7-10 or NPO Hydromorphone HCl 0.5 mg 07/19/25 14:13 Hydromorphone Hcl Inj (*Crx) 1 Mg/Ml Syr IV PUSH Q2H PRN Breakthrough Pain Rated 4-6 or NPO Dextrose 1,000 mls @ 100 mls/hr 07/15/25 01:20 Dextrose 5% 1,000 Ml IVPB PRN PRN Hypoglycemia Protocol Albumin Human 50 mls @ 999 mls/hr 07/15/25 15:32 Albutein IVPB 08/14/25 15:31 Q10M PRN HYPOTENSION Piperacillin Sod/Tazobactam 50 mls @ 100 mls/hr 07/20/25 14:00 07/27/25 05:20 Sod 2.25 gm/ Sodium Chloride IVPB 100 mls/hr Q8H [facility] Administration Micafungin Sodium 100 mg/ 100 mls @ 100 mls/hr 07/26/25 15:00 07/26/25 14:56 Sodium Chloride IVPB 07/30/25 15:59 100 mls/hr DAILY@1500 [facility] Administration Insulin Aspart 3 - 6 units 07/15/25 08:00 07/27/25 07:55 Insulin Aspart (*Bkc) 100 Units/Ml SUB-Q Not Given TIDWM [facility] Protocol Insulin Aspart 1 - 3 units 07/15/25 21:00 07/26/25 21:49 Insulin Aspart (*Bkc) 100 Units/Ml SUB-Q Not Given HS [facility] Protocol Linezolid 600 mg 07/22/25 14:00 07/26/25 21:50 Linezolid 600 Mg Tablet PO 600 mg Q12HR [facility] Administration Magnesium Hydroxide 30 ml 07/16/25 08:39 Magnesium Hydroxide Susp 30 Ml Udc PO DAILY PRN Constipation Miconazole Nitrate 1 applic 07/26/25 14:00 07/27/25 05:22 Miconazole Nitrate 2% Cream 30 Gm Tube TOPICAL 1 applic Q8HR [facility] Administration Naloxone HCl 0.1 mg 07/19/25 14:13 Naloxone Hcl 0.4 Mg/Ml Vial IV PUSH Q2M PRN Opiate Reversal Oxycodone HCl 2.5 mg 07/19/25 14:13 07/21/25 21:03 Oxycodone Hcl (*Crx) 2.5 Mg Tab Ir PO 2.5 mg Q4H PRN Administration Pain Rated 4-6 Oxycodone HCl 5 mg 07/19/25 14:13 07/27/25 07:29 Oxycodone Hcl (*Crx) 5 Mg Tab Ir PO 5 mg Q4H PRN Administration Pain Rated 7-10 Polyethylene Glycol 17 gm 07/16/25 09:00 07/26/25 08:27 Polyethylene Glycol 3350 17 Gm Powd.Pack PO 17 gm QAM [facility] Administration Sodium Chloride 10 ml 07/19/25 22:00 07/27/25 05:22 Central Line Flush IV PUSH 10 ml Q8HR [facility]MA Administration Sodium Chloride 10 ml 07/19/25 17:03 07/24/25 00:32 Central Line Flush IV PUSH 10 ml PRN PRN Administration with TPN bag changes Sodium Chloride 20 ml 07/19/25 17:03 07/27/25 05:22 Central Line Flush IV PUSH 20 ml PRN PRN Administration after blood draws Radiology Results: ITS Impressions Cervical Spine CT 07/15/25 07:00 IMPRESSION: 1. No acute abnormality of the cervical spine. 2: Severe cervical spondylosis. Head CT 07/15/25 07:03 IMPRESSION: 1. No acute intracranial abnormality. Shoulder X-Ray 07/15/25 07:39 Impression: 1: No acute fracture. Wrist X-Ray 07/15/25 07:40 Impression: 1: No acute fracture. Elbow X-Ray 07/15/25 07:41 Impression: 1: No acute fracture. Renal Ultrasound 07/15/25 13:09 Impression: 1: Unremarkable renal ultrasound. No stones, masses or hydronephrosis. Central Venous Line 07/19/25 13:50 IMPRESSION: Fluoroscopy used during portacatheter placement. Scrotum Ultrasound 07/20/25 19:05 IMPRESSION: 1. Diffuse scrotal wall thickening. Consider an infectious/inflammatory process such as cellulitis, lymphedema or systemic causes like cirrhosis, nephrotic syndrome or generalized edema. Soft Tissue Ultrasound 07/20/25 19:10 Impression: 1: Area of superficial venous thrombosis corresponds to the area of left arm swelling. Chest X-Ray 07/22/25 17:19 Impression: 1: Developing left basilar airspace disease, consistent with pneumonia. Labs Labs: Laboratory Tests 07/27/25 05:20 07/27/25 05:20 Calcium 9.4 Magnesium 2.4 H Total Bilirubin 0.5 AST 113 H ALT 45 Alkaline Phosphatase 74 Total Protein 4.8 L Albumin 2.6 L
--- NOTE | 2025-07-27 12:15 | PC.NURSE ---
To dialysis via bed.
[2025-07-27] MEDS: EPOETIN ALFA-EPBX 20,000 UNITS/ML VIAL 20000 UNITS IV PUSH (12:20)
[2025-07-27] MEDS: SODIUM CHLORIDE 0.9% IV 1,000 ML 999 ML IV CONT (12:21)
--- NOTE | 2025-07-27 12:40 | PC.NURSE ---
Returned from dialysis via bed.
[2025-07-27] MEDS: CALCIUM ACETATE 667 MG TABLET 2001 MG PO ×2 (12:43→16:57)
[2025-07-27] MEDS: AMIODARONE HCL 200 MG TABLET PO (12:43)
[2025-07-27] MEDS: APIXABAN 2.5 MG TABLET PO ×2 (12:44→22:05)
[2025-07-27] MEDS: LINEZOLID 600 MG TABLET PO ×2 (12:44→22:04)
[2025-07-27] MEDS: MICAFUNGIN SODIUM 100 MG in SODIUM CHLORIDE 0.9% IV 100 ML IVPB (14:14)
--- NOTE | 2025-07-27 18:30 | PM.IMPN ---
Progress Note: A&P Assessment and Plan (1) Actinic keratosis: Code(s): L57.0 - Actinic keratosis Status: Acute (2) Acute kidney injury: Code(s): N17.9 - Acute kidney failure, unspecified Status: Acute (3) Cellulitis of scrotum: Code(s): N49.2 - Inflammatory disorders of scrotum Status: Acute (4) Rhabdomyolysis: Qualifiers: Rhabdomyolysis type: non-traumatic Qualified Code(s): M62.82 - Rhabdomyolysis Code(s): M62.82 - Rhabdomyolysis Status: Acute Plan Continue dialysis p.r.n. per Nephrology, disposition unknown and pending. He is euvolemic. Tunneled dialysis catheter placed. Had dialysis on 07/27/2025. Continue to follow with Nephrology. Leukocytosis improved on 07/26/2025. Now stable at 20 K on 07/27/2025. Infectious Disease continues to follow. Micafungin added on 07/26/2025. Erythema and purulence at the macerations have improved greatly. Blood cultures blood cultures negative from 07/14, final report. Continue to appreciate Infectious Disease recommendations. He has erythema, macerations and peer limits at the exposed skin of the scrotal sac. Blood cultures 07/14 negative, final. Continue linezolid and Zosyn, miconazole cream added to scrotal region along with micafungin. Continue to follow with Infectious Disease and infectious disease pharmacist. Patient has no pain. Diabetes: Continue Accu-Cheks On 07/26/2025 being apixaban at lower dose 2.[address] in place of Xarelto due to kidney dysfunction. Was previously on hold due to anemia. Continue to monitor transaminitis. Patient wishes to be full code. Saline lock IV. Correa placed on 07/26/2025. Subjective Date/time seen: 07/27/25 18:30 Interval history: No acute overnight events. Patient still reports he has no complaints to elicit. Review of Systems Review of Systems: All systems reviewed & are unremarkable except as noted in HPI and below (Subjective) Exam Const: General: comfortable and no acute distress Other: Obese. A&O x3 HENMT: Mouth: Yes moist mucous membranes Eyes: Pupils: Equal, round and reactive pupils present Neck: Neck: supple Resp: Effort & Inspection: normal respiratory effort Auscultation: clear to auscultation bilaterally Cardio: Rate: regular rate GI: Inspection: non-distended GI Palp: Yes Soft to palpation : Other: Some yellow thick fluid at the base of scrotum, macerated areas are now purulent free Extrem: General: edema Objective Data Vital Signs Vital Signs: Vital Signs - 24 hr 07/26/25 20:00 07/26/25 20:09 07/26/25 20:11 Temperature 97.9 F Pulse Rate 82 74 Respiratory Rate 16 Blood Pressure 129/56 L Pulse Oximetry 95 95 Oxygen Delivery Room Air 07/27/25 00:00 07/27/25 02:16 07/27/25 04:00 Temperature Pulse Rate 62 68 58 L Respiratory Rate Blood Pressure Pulse Oximetry 91 Oxygen Delivery Autopap 07/27/25 05:40 07/27/25 06:00 07/27/25 07:45 Temperature 97.3 F L Pulse Rate 64 73 Respiratory Rate 16 18 Blood Pressure 137/61 Pulse Oximetry 91 93 92 Oxygen Delivery Autopap Room Air 07/27/25 07:46 07/27/25 08:03 07/27/25 08:16 Temperature 97.7 F 98.4 F Pulse Rate 74 78 72 Respiratory Rate 22 H 18 Blood Pressure 106/42 L 117/52 L Pulse Oximetry 90 Oxygen Delivery 07/27/25 08:23 07/27/25 08:30 07/27/25 08:45 Temperature Pulse Rate 71 70 72 Respiratory Rate Blood Pressure 123/51 L 123/51 L 122/52 L Pulse Oximetry Oxygen Delivery 07/27/25 09:00 07/27/25 09:15 07/27/25 09:30 Temperature Pulse Rate 72 71 70 Respiratory Rate Blood Pressure 121/58 L 108/52 L 102/35 L Pulse Oximetry Oxygen Delivery 07/27/25 09:45 07/27/25 10:00 07/27/25 10:15 Temperature Pulse Rate 72 69 71 Respiratory Rate Blood Pressure 106/47 L 111/46 L 110/48 L Pulse Oximetry Oxygen Delivery 07/27/25 10:30 07/27/25 10:45 07/27/25 11:00 Temperature Pulse Rate 100 75 71 Respiratory Rate Blood Pressure 110/95 H 110/54 L 106/51 L Pulse Oximetry Oxygen Delivery 09/10/25 11:15 07/27/25 11:30 07/27/25 11:45 Temperature Pulse Rate 71 72 70 Respiratory Rate Blood Pressure 102/58 L 110/49 L 121/45 L Pulse Oximetry Oxygen Delivery 07/27/25 12:00 07/27/25 12:00 07/27/25 12:15 Temperature Pulse Rate 73 71 74 Respiratory Rate Blood Pressure 117/51 L 118/48 L Pulse Oximetry Oxygen Delivery 07/27/25 12:23 07/27/25 12:30 07/27/25 12:43 Temperature 98.2 F Pulse Rate 73 75 72 Respiratory Rate 18 Blood Pressure 122/47 L 113/49 L Pulse Oximetry Oxygen Delivery 07/27/25 12:43 07/27/25 14:07 07/27/25 16:00 Temperature 98.4 F Pulse Rate 72 89 74 Respiratory Rate 20 Blood Pressure 124/58 L Pulse Oximetry 93 Oxygen Delivery 07/27/25 16:57 Temperature Pulse Rate 77 Respiratory Rate Blood Pressure Pulse Oximetry Oxygen Delivery Intake/Output Intake/Output: Intake & Output 07/24/25 07/25/25 07/26/25 07/27/25 23:59 23:59 23:59 23:59 Intake Total 1510 1020 2100 2120 Output Total 300 1000 2975 Balance 1210 20 2100 -855 Meds/Results Medications: Active Medications Generic Name Dose Route Start Last Admin Trade Name Freq PRN Reason Stop Dose Admin Acetaminophen 1,000 mg 07/16/25 09:58 07/25/25 13:58 Acetaminophen 500 Mg Tablet PO 1,000 mg Q6H PRN Administration Fever Acetaminophen 500 mg 07/19/25 14:13 07/23/25 15:38 Acetaminophen 500 Mg Tablet PO 500 mg Q6H PRN Administration Pain Rated 1-3 Albuterol/Ipratropium 3 ml 07/17/25 20:40 07/20/25 00:58 Ipratropium 0.5 Mg/Albuterol Sulfate 2.5 Mg Ampul.Neb 3 Ml INHALATION 3 ml Q6HRT PRN Administration wheezing Amiodarone HCl 200 mg 07/15/25 02:30 07/27/25 12:43 Amiodarone Hcl 200 Mg Tablet PO 200 mg DAILY [facility]MA Administration Apixaban 2.5 mg 07/26/25 21:00 07/27/25 12:44 Apixaban 2.5 Mg Tablet PO 2.5 mg Q12HR [facility] Administration Bisacodyl 5 mg 07/22/25 13:35 07/27/25 12:44 Bisacodyl 5 Mg Tablet Ec PO Not Given QAM [facility] Calcium Acetate 2,001 mg 07/24/25 12:00 07/27/25 16:57 Calcium Acetate 667 Mg Tablet PO 2,001 mg TIDWM [facility] Administration Carvedilol 12.5 mg 07/15/25 09:00 07/27/25 16:57 Carvedilol 12.5 Mg Tablet PO 12.5 mg BID [facility] Administration Dextrose 12.5 gm 07/15/25 01:20 Dextrose 50% 25 Gm/50 Ml Syringe IV PUSH PRN PRN Hypoglycemia Protocol Epoetin Sd-epbx 20,000 units 07/25/25 09:00 07/27/25 12:20 Epoetin Sd-Epbx 20,000 Units/Ml Vial IV PUSH 20,000 units MOWEFR@09 [facility] Administration Glucagon 1 mg 07/15/25 01:20 Glucagon For Inj 1 Mg Vial IM PRN PRN Hypoglycemia Protocol Glucose 15 gm 07/15/25 01:20 Glucose Oral Gel 15 Gm Of Glucse In 37.5 Gm Tube PO PRN PRN Hypoglycemia Protocol Hydromorphone HCl 1 mg 07/19/25 14:13 Hydromorphone Hcl Inj (*Crx) 1 Mg/Ml Syr IV PUSH Q2H PRN Breakthrough Pain Rated 7-10 or NPO Hydromorphone HCl 0.5 mg 07/19/25 14:13 Hydromorphone Hcl Inj (*Crx) 1 Mg/Ml Syr IV PUSH Q2H PRN Breakthrough Pain Rated 4-6 or NPO Dextrose 1,000 mls @ 100 mls/hr 07/15/25 01:20 Dextrose 5% 1,000 Ml IVPB PRN PRN Hypoglycemia Protocol Albumin Human 50 mls @ 999 mls/hr 07/15/25 15:32 Albutein IVPB 08/14/25 15:31 Q10M PRN HYPOTENSION Piperacillin Sod/Tazobactam 50 mls @ 100 mls/hr 07/20/25 14:00 07/27/25 14:05 Sod 2.25 gm/ Sodium Chloride IVPB Infused Q8H [facility] Infusion Micafungin Sodium 100 mg/ 100 mls @ 100 mls/hr 07/26/25 15:00 07/27/25 15:15 Sodium Chloride IVPB 07/30/25 15:59 Infused DAILY@1500 [facility] Infusion Insulin Aspart 3 - 6 units 07/15/25 08:00 07/27/25 17:04 Insulin Aspart (*Bkc) 100 Units/Ml SUB-Q Not Given TIDWM [facility] Protocol Insulin Aspart 1 - 3 units 07/15/25 21:00 07/26/25 21:49 Insulin Aspart (*Bkc) 100 Units/Ml SUB-Q Not Given HS [facility] Protocol Linezolid 600 mg 07/22/25 14:00 07/27/25 12:44 Linezolid 600 Mg Tablet PO 600 mg Q12HR [facility] Administration Magnesium Hydroxide 30 ml 07/16/25 08:39 Magnesium Hydroxide Susp 30 Ml Udc PO DAILY PRN Constipation Miconazole Nitrate 1 applic 07/26/25 14:00 07/27/25 13:36 Miconazole Nitrate 2% Cream 30 Gm Tube TOPICAL 1 applic Q8HR [facility] Administration Naloxone HCl 0.1 mg 07/19/25 14:13 Naloxone Hcl 0.4 Mg/Ml Vial IV PUSH Q2M PRN Opiate Reversal Oxycodone HCl 2.5 mg 07/19/25 14:13 07/21/25 21:03 Oxycodone Hcl (*Crx) 2.5 Mg Tab Ir PO 2.5 mg Q4H PRN Administration Pain Rated 4-6 Oxycodone HCl 5 mg 07/19/25 14:13 07/27/25 17:03 Oxycodone Hcl (*Crx) 5 Mg Tab Ir PO 5 mg Q4H PRN Administration Pain Rated 7-10 Polyethylene Glycol 17 gm 07/16/25 09:00 07/27/25 12:44 Polyethylene Glycol 3350 17 Gm Powd.Pack PO Not Given QAM [facility] Sodium Chloride 10 ml 07/19/25 22:00 07/27/25 13:36 Central Line Flush IV PUSH 10 ml Q8HR [facility] Administration Sodium Chloride 10 ml 07/19/25 17:03 07/24/25 00:32 Central Line Flush IV PUSH 10 ml PRN PRN Administration with TPN bag changes Sodium Chloride 20 ml 07/19/25 17:03 07/27/25 05:22 Central Line Flush IV PUSH 20 ml PRN PRN Administration after blood draws Radiology Results: ITS Impressions Cervical Spine CT 07/15/25 07:00 IMPRESSION: 1. No acute abnormality of the cervical spine. 2: Severe cervical spondylosis. Head CT 07/15/25 07:03 IMPRESSION: 1. No acute intracranial abnormality. Shoulder X-Ray 07/15/25 07:39 Impression: 1: No acute fracture. Wrist X-Ray 07/15/25 07:40 Impression: 1: No acute fracture. Elbow X-Ray 07/15/25 07:41 Impression: 1: No acute fracture. Renal Ultrasound 07/15/25 13:09 Impression: 1: Unremarkable renal ultrasound. No stones, masses or hydronephrosis. Central Venous Line 07/19/25 13:50 IMPRESSION: Fluoroscopy used during portacatheter placement. Scrotum Ultrasound 07/20/25 19:05 IMPRESSION: 1. Diffuse scrotal wall thickening. Consider an infectious/inflammatory process such as cellulitis, lymphedema or systemic causes like cirrhosis, nephrotic syndrome or generalized edema. Soft Tissue Ultrasound 07/20/25 19:10 Impression: 1: Area of superficial venous thrombosis corresponds to the area of left arm swelling. Chest X-Ray 07/22/25 17:19 Impression: 1: Developing left basilar airspace disease, consistent with pneumonia. Labs Labs: Laboratory Results - last 24 hr 07/26/25 07/27/25 07/27/25 19:44 05:20 07:51 WBC 20.8 H RBC 2.64 L Hgb 8.2 L Hct 26.7 L MCV 101.1 H MCH 31.1 MCHC 30.7 L RDW 14.5 Plt Count 225 MPV 9.5 Immature Gran % (Auto) 7.2 H Neut % (Auto) 78.3 H Lymph % (Auto) 5.8 L [place] % (Auto) 6.4 Eos % (Auto) 1.9 Baso % (Auto) 0.4 Lymph # (Auto) 1.20 [place] # (Auto) 1.3 H Eos # (Auto) 0.4 H Baso # (Auto) 0.1 Abs Immat Gran (auto) 1.50 H Absolute Neuts (auto) 16.3 H Absolute Nucleated RBC 0.020 H Nucleated RBC % 0.1 Sodium 127 L Potassium 5.0 Chloride 95 L Carbon Dioxide 28 Anion Gap 4 BUN 72 H D Creatinine 4.93 H Estim Creat Clear Calc 24 Estimated GFR 12 L Glucose 150 H POC Capillary Glucose 148 H 162 H Calcium 9.4 Magnesium 2.4 H Total Bilirubin 0.5 AST 113 H ALT 45 Alkaline Phosphatase 74 Total Protein 4.8 L Albumin 2.6 L 07/27/25 07/27/25 12:47 16:53 WBC RBC Hgb Hct MCV MCH MCHC RDW Plt Count MPV Immature Gran % (Auto) Neut % (Auto) Lymph % (Auto) [place] % (Auto) Eos % (Auto) Baso % (Auto) Lymph # (Auto) [place] # (Auto) Eos # (Auto) Baso # (Auto) Abs Immat Gran (auto) Absolute Neuts (auto) Absolute Nucleated RBC Nucleated RBC % Sodium Potassium Chloride Carbon Dioxide Anion Gap BUN Creatinine Estim Creat Clear Calc Estimated GFR Glucose POC Capillary Glucose 113 H 143 H Calcium Magnesium Total Bilirubin AST ALT Alkaline Phosphatase Total Protein Albumin
--- NOTE | 2025-07-27 18:47 | P.PNINF_ITS ---
Progress Note: A&P Assessment and Plan (1) Actinic keratosis: Code(s): L57.0 - Actinic keratosis Status: Acute (2) Acute kidney injury: Code(s): N17.9 - Acute kidney failure, unspecified Status: Acute (3) Cellulitis of scrotum: Code(s): N49.2 - Inflammatory disorders of scrotum Status: Acute (4) Rhabdomyolysis: Qualifiers: Rhabdomyolysis type: non-traumatic Qualified Code(s): M62.82 - Rhabdomyolysis Code(s): M62.82 - Rhabdomyolysis Status: Acute Plan Continue dialysis p.r.n. per Nephrology, disposition unknown and pending. He is euvolemic. Tunneled dialysis catheter placed. Had dialysis on 07/27/2025. Continue to follow with Nephrology. Leukocytosis improved on 07/26/2025. Now stable at 20 K on 07/27/2025. Infectious Disease continues to follow. Micafungin added on 07/26/2025. Erythema and purulence at the macerations have improved greatly. Blood cultures blood cultures negative from 07/14, final report. Continue to appreciate Infectious Disease recommendations. He has erythema, macerations and peer limits at the exposed skin of the scrotal sac. Blood cultures 07/14 negative, final. Continue linezolid and Zosyn, miconazole cream added to scrotal region along with micafungin. Continue to follow with Infectious Disease and infectious disease pharmacist. Patient has no pain. Diabetes: Continue Accu-Cheks On 07/26/2025 being apixaban at lower dose 2.[address] in place of Xarelto due to kidney dysfunction. Was previously on hold due to anemia. Continue to monitor transaminitis. Patient wishes to be full code. Saline lock IV. Simmons placed on 07/26/2025. Subjective Date/time seen: 07/27/25 18:47 Interval history: just got cleaned up loose BMs No pain No itchiness Had simmons placed yesterday Exam Narrative: NAD, non-toxic, on room air +simmons, urine clear yellow scrotum with edema and some redness Objective Data Vital Signs Vital Signs: Vital Signs - 24 hr 07/26/25 20:00 07/26/25 20:09 07/26/25 20:11 Temperature 97.9 F Pulse Rate 82 74 Respiratory Rate 16 Blood Pressure 129/56 L Pulse Oximetry 95 95 Oxygen Delivery Room Air 07/27/25 00:00 07/27/25 02:16 07/27/25 04:00 Temperature Pulse Rate 62 68 58 L Respiratory Rate Blood Pressure Pulse Oximetry 91 Oxygen Delivery Autopap 07/27/25 05:40 07/27/25 06:00 07/27/25 07:45 Temperature 97.3 F L Pulse Rate 64 73 Respiratory Rate 16 18 Blood Pressure 137/61 Pulse Oximetry 91 93 92 Oxygen Delivery Autopap Room Air 07/27/25 07:46 07/27/25 08:03 07/27/25 08:16 Temperature 97.7 F 98.4 F Pulse Rate 74 78 72 Respiratory Rate 22 H 18 Blood Pressure 106/42 L 117/52 L Pulse Oximetry 90 Oxygen Delivery 07/27/25 08:23 07/27/25 08:30 07/27/25 08:45 Temperature Pulse Rate 71 70 72 Respiratory Rate Blood Pressure 123/51 L 123/51 L 122/52 L Pulse Oximetry Oxygen Delivery 07/27/25 09:00 07/27/25 09:15 07/27/25 09:30 Temperature Pulse Rate 72 71 70 Respiratory Rate Blood Pressure 121/58 L 108/52 L 102/35 L Pulse Oximetry Oxygen Delivery 07/27/25 09:45 07/27/25 10:00 07/27/25 10:15 Temperature Pulse Rate 72 69 71 Respiratory Rate Blood Pressure 106/47 L 111/46 L 110/48 L Pulse Oximetry Oxygen Delivery 07/27/25 10:30 07/27/25 10:45 07/27/25 11:00 Temperature Pulse Rate 100 75 71 Respiratory Rate Blood Pressure 110/95 H 110/54 L 106/51 L Pulse Oximetry Oxygen Delivery 07/27/25 11:15 07/27/25 11:30 07/27/25 11:45 Temperature Pulse Rate 71 72 70 Respiratory Rate Blood Pressure 102/58 L 110/49 L 121/45 L Pulse Oximetry Oxygen Delivery 07/27/25 12:00 07/27/25 12:00 07/27/25 12:15 Temperature Pulse Rate 73 71 74 Respiratory Rate Blood Pressure 117/51 L 118/48 L Pulse Oximetry Oxygen Delivery 07/27/25 12:23 07/27/25 12:30 07/27/25 12:43 Temperature 98.2 F Pulse Rate 73 75 72 Respiratory Rate 18 Blood Pressure 122/47 L 113/49 L Pulse Oximetry Oxygen Delivery 07/27/25 12:43 07/27/25 14:07 07/27/25 16:00 Temperature 98.4 F Pulse Rate 72 89 74 Respiratory Rate 20 Blood Pressure 124/58 L Pulse Oximetry 93 Oxygen Delivery 07/27/25 16:57 Temperature Pulse Rate 77 Respiratory Rate Blood Pressure Pulse Oximetry Oxygen Delivery Intake/Output Intake/Output: Intake & Output 07/24/25 07/25/25 07/26/25 07/27/25 23:59 23:59 23:59 23:59 Intake Total 1510 1020 2100 2120 Output Total 300 1000 2975 Balance 1210 20 2100 -855 Meds/Results Medications: Active Medications Generic Name Dose Route Start Last Admin Trade Name Freq PRN Reason Stop Dose Admin Acetaminophen 1,000 mg 07/16/25 09:58 07/25/25 13:58 Acetaminophen 500 Mg Tablet PO 1,000 mg Q6H PRN Administration Fever Acetaminophen 500 mg 07/19/25 14:13 07/23/25 15:38 Acetaminophen 500 Mg Tablet PO 500 mg Q6H PRN Administration Pain Rated 1-3 Albuterol/Ipratropium 3 ml 07/17/25 20:40 07/20/25 00:58 Ipratropium 0.5 Mg/Albuterol Sulfate 2.5 Mg Ampul.Neb 3 Ml INHALATION 3 ml Q6HRT PRN Administration wheezing Amiodarone HCl 200 mg 07/15/25 02:30 07/27/25 12:43 Amiodarone Hcl 200 Mg Tablet PO 200 mg DAILY SALMA Administration Apixaban 2.5 mg 07/26/25 21:00 07/27/25 12:44 Apixaban 2.5 Mg Tablet PO 2.5 mg Q12HR SALMA Administration Bisacodyl 5 mg 07/22/25 13:35 07/27/25 12:44 Bisacodyl 5 Mg Tablet Ec PO Not Given QAM SALMA Calcium Acetate 2,001 mg 07/24/25 12:00 07/27/25 16:57 Calcium Acetate 667 Mg Tablet PO 2,001 mg TIDWM SALMA Administration Carvedilol 12.5 mg 07/15/25 09:00 07/27/25 16:57 Carvedilol 12.5 Mg Tablet PO 12.5 mg BID SALMA Administration Dextrose 12.5 gm 07/15/25 01:20 Dextrose 50% 25 Gm/50 Ml Syringe IV PUSH PRN PRN Hypoglycemia Protocol Epoetin Sd-epbx 20,000 units 07/25/25 09:00 07/27/25 12:20 Epoetin Sd-Epbx 20,000 Units/Ml Vial IV PUSH 20,000 units MOWEFR@09 SALMA Administration Glucagon 1 mg 07/15/25 01:20 Glucagon For Inj 1 Mg Vial IM PRN PRN Hypoglycemia Protocol Glucose 15 gm 07/15/25 01:20 Glucose Oral Gel 15 Gm Of Glucse In 37.5 Gm Tube PO PRN PRN Hypoglycemia Protocol Hydromorphone HCl 1 mg 07/19/25 14:13 Hydromorphone Hcl Inj (*Crx) 1 Mg/Ml Syr IV PUSH Q2H PRN Breakthrough Pain Rated 7-10 or NPO Hydromorphone HCl 0.5 mg 07/19/25 14:13 Hydromorphone Hcl Inj (*Crx) 1 Mg/Ml Syr IV PUSH Q2H PRN Breakthrough Pain Rated 4-6 or NPO Dextrose 1,000 mls @ 100 mls/hr 07/15/25 01:20 Dextrose 5% 1,000 Ml IVPB PRN PRN Hypoglycemia Protocol Albumin Human 50 mls @ 999 mls/hr 07/15/25 15:32 Albutein IVPB 08/14/25 15:31 Q10M PRN HYPOTENSION Piperacillin Sod/Tazobactam 50 mls @ 100 mls/hr 07/20/25 14:00 07/27/25 14:05 Sod 2.25 gm/ Sodium Chloride IVPB Infused Q8H SALMA Infusion Micafungin Sodium 100 mg/ 100 mls @ 100 mls/hr 07/26/25 15:00 07/27/25 15:15 Sodium Chloride IVPB 07/30/25 15:59 Infused DAILY@1500 SALMA Infusion Insulin Aspart 3 - 6 units 07/15/25 08:00 07/27/25 17:04 Insulin Aspart (*Bkc) 100 Units/Ml SUB-Q Not Given T[facility] Protocol Insulin Aspart 1 - 3 units 07/15/25 21:00 07/26/25 21:49 Insulin Aspart (*Bkc) 100 Units/Ml SUB-Q Not Given HS [facility] Protocol Linezolid 600 mg 07/22/25 14:00 07/27/25 12:44 Linezolid 600 Mg Tablet PO 600 mg Q12HR SALMA Administration Magnesium Hydroxide 30 ml 07/16/25 08:39 Magnesium Hydroxide Susp 30 Ml Udc PO DAILY PRN Constipation Miconazole Nitrate 1 applic 07/26/25 14:00 07/27/25 13:36 Miconazole Nitrate 2% Cream 30 Gm Tube TOPICAL 1 applic Q8HR SALAM Administration Naloxone HCl 0.1 mg 07/19/25 14:13 Naloxone Hcl 0.4 Mg/Ml Vial IV PUSH Q2M PRN Opiate Reversal Oxycodone HCl 2.5 mg 07/19/25 14:13 07/21/25 21:03 Oxycodone Hcl (*Crx) 2.5 Mg Tab Ir PO 2.5 mg Q4H PRN Administration Pain Rated 4-6 Oxycodone HCl 5 mg 07/19/25 14:13 07/27/25 17:03 Oxycodone Hcl (*Crx) 5 Mg Tab Ir PO 5 mg Q4H PRN Administration Pain Rated 7-10 Polyethylene Glycol 17 gm 07/16/25 09:00 07/27/25 12:44 Polyethylene Glycol 3350 17 Gm Powd.Pack PO Not Given QAM [facility] Sodium Chloride 10 ml 07/19/25 22:00 07/27/25 13:36 Central Line Flush IV PUSH 10 ml Q8HR SALMA Administration Sodium Chloride 10 ml 07/19/25 17:03 07/24/25 00:32 Central Line Flush IV PUSH 10 ml PRN PRN Administration with TPN bag changes Sodium Chloride 20 ml 07/19/25 17:03 07/27/25 05:22 Central Line Flush IV PUSH 20 ml PRN PRN Administration after blood draws Radiology Results: ITS Impressions Cervical Spine CT 07/15/25 07:00 IMPRESSION: 1. No acute abnormality of the cervical spine. 2: Severe cervical spondylosis. Head CT 07/15/25 07:03 IMPRESSION: 1. No acute intracranial abnormality. Shoulder X-Ray 07/15/25 07:39 Impression: 1: No acute fracture. Wrist X-Ray 07/15/25 07:40 Impression: 1: No acute fracture. Elbow X-Ray 07/15/25 07:41 Impression: 1: No acute fracture. Renal Ultrasound 07/15/25 13:09 Impression: 1: Unremarkable renal ultrasound. No stones, masses or hydronephrosis. Central Venous Line 07/19/25 13:50 IMPRESSION: Fluoroscopy used during portacatheter placement. Scrotum Ultrasound 07/20/25 19:05 IMPRESSION: 1. Diffuse scrotal wall thickening. Consider an infectious/inflammatory process such as cellulitis, lymphedema or systemic causes like cirrhosis, nephrotic syndrome or generalized edema. Soft Tissue Ultrasound 07/20/25 19:10 Impression: 1: Area of superficial venous thrombosis corresponds to the area of left arm swelling. Chest X-Ray 07/22/25 17:19 Impression: 1: Developing left basilar airspace disease, consistent with pneumonia. Labs Labs: Laboratory Results - last 24 hr 07/26/25 07/27/25 07/27/25 19:44 05:20 07:51 WBC 20.8 H RBC 2.64 L Hgb 8.2 L Hct 26.7 L MCV 101.1 H MCH 31.1 MCHC 30.7 L RDW 14.5 Plt Count 225 MPV 9.5 Immature Gran % (Auto) 7.2 H Neut % (Auto) 78.3 H Lymph % (Auto) 5.8 L [place] % (Auto) 6.4 Eos % (Auto) 1.9 Baso % (Auto) 0.4 Lymph # (Auto) 1.20 [place] # (Auto) 1.3 H Eos # (Auto) 0.4 H Baso # (Auto) 0.1 Abs Immat Gran (auto) 1.50 H Absolute Neuts (auto) 16.3 H Absolute Nucleated RBC 0.020 H Nucleated RBC % 0.1 Sodium 127 L Potassium 5.0 Chloride 95 L Carbon Dioxide 28 Anion Gap 4 BUN 72 H D Creatinine 4.93 H Estim Creat Clear Calc 24 Estimated GFR 12 L Glucose 150 H POC Capillary Glucose 148 H 162 H Calcium 9.4 Magnesium 2.4 H Total Bilirubin 0.5 AST 113 H ALT 45 Alkaline Phosphatase 74 Total Protein 4.8 L Albumin 2.6 L 07/27/25 07/27/25 12:47 16:53 WBC RBC Hgb Hct MCV MCH MCHC RDW Plt Count MPV Immature Gran % (Auto) Neut % (Auto) Lymph % (Auto) [place] % (Auto) Eos % (Auto) Baso % (Auto) Lymph # (Auto) [place] # (Auto) Eos # (Auto) Baso # (Auto) Abs Immat Gran (auto) Absolute Neuts (auto) Absolute Nucleated RBC Nucleated RBC % Sodium Potassium Chloride Carbon Dioxide Anion Gap BUN Creatinine Estim Creat Clear Calc Estimated GFR Glucose POC Capillary Glucose 113 H 143 H Calcium Magnesium Total Bilirubin AST ALT Alkaline Phosphatase Total Protein Albumin
--- NOTE | 2025-07-27 18:55 | P.PNINF_ITS ---
Progress Note: A&P Assessment and Plan (1) Leukocytosis: Qualifiers: Leukocytosis type: unspecified Qualified Code(s): D72.829 - Elevated white blood cell count, unspecified Code(s): D72.829 - Elevated white blood cell count, unspecified Status: Acute (2) Cellulitis of scrotum: Code(s): N49.2 - Inflammatory disorders of scrotum Status: Acute (3) Hematoma of right upper extremity: Code(s): S40.021A - Contusion of right upper arm, initial encounter Status: Acute (4) Anemia: Code(s): D64.9 - Anemia, unspecified Status: Acute (5) Rhabdomyolysis: Qualifiers: Rhabdomyolysis type: non-traumatic Qualified Code(s): M62.82 - Rhabdomyolysis Code(s): M62.82 - Rhabdomyolysis Status: Acute (6) Acute kidney injury: Code(s): N17.9 - Acute kidney failure, unspecified Status: Acute (7) Transaminitis: Code(s): R74.01 - Elevation of levels of liver transaminase levels Status: Acute (8) Chronic hyponatremia: Code(s): E87.1 - Hypo-osmolality and hyponatremia Status: Acute (9) Hyperkalemia: Code(s): E87.5 - Hyperkalemia Status: Acute (10) Constipation: Code(s): K59.00 - Constipation, unspecified Status: Acute Plan 1. scrotal cellulitis--cx unrevealing--ongoing 2. morbid obesity 3. [place] 4. rhabdomyolysis 5. leukocytosis--multifactorial and stable 6. RUE hematoma 7. ?pneumonia RECOMMENDATIONS continue linezolid, zosyn and micafungin miconazole cream to scrotal region blood cxs 07/14 neg and final d/w pharmacist Pt was seen via video telehealth consultation with the assistance of staff, chart, data and patient independently reviewed. Patient was located at [facility] while I was located in my [place] office. Received verbal consent from patient. Subjective Date/time seen: 07/27/25 18:55 Interval history: No pain or itchiness had simmons placed yesterday Exam Narrative: scrotum with edema; some erythema simmons with yellow urine Objective Data Vital Signs Vital Signs: Vital Signs - 24 hr 07/26/25 20:00 07/26/25 20:09 07/26/25 20:11 Temperature 97.9 F Pulse Rate 82 74 Respiratory Rate 16 Blood Pressure 129/56 L Pulse Oximetry 95 95 Oxygen Delivery Room Air 07/27/25 00:00 07/27/25 02:16 07/27/25 04:00 Temperature Pulse Rate 62 68 58 L Respiratory Rate Blood Pressure Pulse Oximetry 91 Oxygen Delivery Autopap 07/27/25 05:40 07/27/25 06:00 07/27/25 07:45 Temperature 97.3 F L Pulse Rate 64 73 Respiratory Rate 16 18 Blood Pressure 137/61 Pulse Oximetry 91 93 92 Oxygen Delivery Autopap Room Air 07/27/25 07:46 07/27/25 08:03 07/27/25 08:16 Temperature 97.7 F 98.4 F Pulse Rate 74 78 72 Respiratory Rate 22 H 18 Blood Pressure 106/42 L 117/52 L Pulse Oximetry 90 Oxygen Delivery 07/27/25 08:23 07/27/25 08:30 07/27/25 08:45 Temperature Pulse Rate 71 70 72 Respiratory Rate Blood Pressure 123/51 L 123/51 L 122/52 L Pulse Oximetry Oxygen Delivery 07/27/25 09:00 07/27/25 09:15 07/27/25 09:30 Temperature Pulse Rate 72 71 70 Respiratory Rate Blood Pressure 121/58 L 108/52 L 102/35 L Pulse Oximetry Oxygen Delivery 07/27/25 09:45 07/27/25 10:00 07/27/25 10:15 Temperature Pulse Rate 72 69 71 Respiratory Rate Blood Pressure 106/47 L 111/46 L 110/48 L Pulse Oximetry Oxygen Delivery 07/27/25 10:30 07/27/25 10:45 07/27/25 11:00 Temperature Pulse Rate 100 75 71 Respiratory Rate Blood Pressure 110/95 H 110/54 L 106/51 L Pulse Oximetry Oxygen Delivery 07/27/25 11:15 07/27/25 11:30 07/27/25 11:45 Temperature Pulse Rate 71 72 70 Respiratory Rate Blood Pressure 102/58 L 110/49 L 121/45 L Pulse Oximetry Oxygen Delivery 07/27/25 12:00 07/27/25 12:00 07/27/25 12:15 Temperature Pulse Rate 73 71 74 Respiratory Rate Blood Pressure 117/51 L 118/48 L Pulse Oximetry Oxygen Delivery 07/27/25 12:23 07/27/25 12:30 07/27/25 12:43 Temperature 98.2 F Pulse Rate 73 75 72 Respiratory Rate 18 Blood Pressure 122/47 L 113/49 L Pulse Oximetry Oxygen Delivery 07/27/25 12:43 07/27/25 14:07 07/27/25 16:00 Temperature 98.4 F Pulse Rate 72 89 74 Respiratory Rate 20 Blood Pressure 124/58 L Pulse Oximetry 93 Oxygen Delivery 07/27/25 16:57 Temperature Pulse Rate 77 Respiratory Rate Blood Pressure Pulse Oximetry Oxygen Delivery Intake/Output Intake/Output: Intake & Output 07/24/25 07/25/25 07/26/25 07/27/25 23:59 23:59 23:59 23:59 Intake Total 1510 1020 2100 2120 Output Total 300 1000 2975 Balance 1210 20 2100 -855 Meds/Results Medications: Active Medications Generic Name Dose Route Start Last Admin Trade Name Freq PRN Reason Stop Dose Admin Acetaminophen 1,000 mg 07/16/25 09:58 07/25/25 13:58 Acetaminophen 500 Mg Tablet PO 1,000 mg Q6H PRN Administration Fever Acetaminophen 500 mg 07/19/25 14:13 07/23/25 15:38 Acetaminophen 500 Mg Tablet PO 500 mg Q6H PRN Administration Pain Rated 1-3 Albuterol/Ipratropium 3 ml 07/17/25 20:40 07/20/25 00:58 Ipratropium 0.5 Mg/Albuterol Sulfate 2.5 Mg Ampul.Neb 3 Ml INHALATION 3 ml Q6HRT PRN Administration wheezing Amiodarone HCl 200 mg 07/15/25 02:30 07/27/25 12:43 Amiodarone Hcl 200 Mg Tablet PO 200 mg DAILY SALMA Administration Apixaban 2.5 mg 07/26/25 21:00 07/27/25 12:44 Apixaban 2.5 Mg Tablet PO 2.5 mg Q12HR SALMA Administration Bisacodyl 5 mg 07/22/25 13:35 07/27/25 12:44 Bisacodyl 5 Mg Tablet Ec PO Not Given QAM SALMA Calcium Acetate 2,001 mg 07/24/25 12:00 07/27/25 16:57 Calcium Acetate 667 Mg Tablet PO 2,001 mg TIDWM SALMA Administration Carvedilol 12.5 mg 07/15/25 09:00 07/27/25 16:57 Carvedilol 12.5 Mg Tablet PO 12.5 mg BID SALMA Administration Dextrose 12.5 gm 07/15/25 01:20 Dextrose 50% 25 Gm/50 Ml Syringe IV PUSH PRN PRN Hypoglycemia Protocol Epoetin Sd-epbx 20,000 units 07/25/25 09:00 07/27/25 12:20 Epoetin Sd-Epbx 20,000 Units/Ml Vial IV PUSH 20,000 units MOWEFR@09 SALMA Administration Glucagon 1 mg 07/15/25 01:20 Glucagon For Inj 1 Mg Vial IM PRN PRN Hypoglycemia Protocol Glucose 15 gm 07/15/25 01:20 Glucose Oral Gel 15 Gm Of Glucse In 37.5 Gm Tube PO PRN PRN Hypoglycemia Protocol Hydromorphone HCl 1 mg 07/19/25 14:13 Hydromorphone Hcl Inj (*Crx) 1 Mg/Ml Syr IV PUSH Q2H PRN Breakthrough Pain Rated 7-10 or NPO Hydromorphone HCl 0.5 mg 07/19/25 14:13 Hydromorphone Hcl Inj (*Crx) 1 Mg/Ml Syr IV PUSH Q2H PRN Breakthrough Pain Rated 4-6 or NPO Dextrose 1,000 mls @ 100 mls/hr 07/15/25 01:20 Dextrose 5% 1,000 Ml IVPB PRN PRN Hypoglycemia Protocol Albumin Human 50 mls @ 999 mls/hr 07/15/25 15:32 Albutein IVPB 08/14/25 15:31 Q10M PRN HYPOTENSION Piperacillin Sod/Tazobactam 50 mls @ 100 mls/hr 07/20/25 14:00 07/27/25 14:05 Sod 2.25 gm/ Sodium Chloride IVPB Infused Q8H [facility] Infusion Micafungin Sodium 100 mg/ 100 mls @ 100 mls/hr 07/26/25 15:00 07/27/25 15:15 Sodium Chloride IVPB 07/30/25 15:59 Infused DAILY@1500 SALMA Infusion Insulin Aspart 3 - 6 units 07/15/25 08:00 07/27/25 17:04 Insulin Aspart (*Bkc) 100 Units/Ml SUB-Q Not Given TIDWM [facility] Protocol Insulin Aspart 1 - 3 units 07/15/25 21:00 07/26/25 21:49 Insulin Aspart (*Bkc) 100 Units/Ml SUB-Q Not Given HS [facility] Protocol Linezolid 600 mg 07/22/25 14:00 07/27/25 12:44 Linezolid 600 Mg Tablet PO 600 mg Q12HR SALMA Administration Magnesium Hydroxide 30 ml 07/16/25 08:39 Magnesium Hydroxide Susp 30 Ml Udc PO DAILY PRN Constipation Miconazole Nitrate 1 applic 07/26/25 14:00 07/27/25 13:36 Miconazole Nitrate 2% Cream 30 Gm Tube TOPICAL 1 applic Q8HR SALMA Administration Naloxone HCl 0.1 mg 07/19/25 14:13 Naloxone Hcl 0.4 Mg/Ml Vial IV PUSH Q2M PRN Opiate Reversal Oxycodone HCl 2.5 mg 07/19/25 14:13 07/21/25 21:03 Oxycodone Hcl (*Crx) 2.5 Mg Tab Ir PO 2.5 mg Q4H PRN Administration Pain Rated 4-6 Oxycodone HCl 5 mg 07/19/25 14:13 07/27/25 17:03 Oxycodone Hcl (*Crx) 5 Mg Tab Ir PO 5 mg Q4H PRN Administration Pain Rated 7-10 Polyethylene Glycol 17 gm 07/16/25 09:00 07/27/25 12:44 Polyethylene Glycol 3350 17 Gm Powd.Pack PO Not Given QAM SALMA Sodium Chloride 10 ml 07/19/25 22:00 07/27/25 13:36 Central Line Flush IV PUSH 10 ml Q8HR SALMA Administration Sodium Chloride 10 ml 07/19/25 17:03 07/24/25 00:32 Central Line Flush IV PUSH 10 ml PRN PRN Administration with TPN bag changes Sodium Chloride 20 ml 07/19/25 17:03 07/27/25 05:22 Central Line Flush IV PUSH 20 ml PRN PRN Administration after blood draws Radiology Results: ITS Impressions Cervical Spine CT 07/15/25 07:00 IMPRESSION: 1. No acute abnormality of the cervical spine. 2: Severe cervical spondylosis. Head CT 07/15/25 07:03 IMPRESSION: 1. No acute intracranial abnormality. Shoulder X-Ray 07/15/25 07:39 Impression: 1: No acute fracture. Wrist X-Ray 07/15/25 07:40 Impression: 1: No acute fracture. Elbow X-Ray 07/15/25 07:41 Impression: 1: No acute fracture. Renal Ultrasound 07/15/25 13:09 Impression: 1: Unremarkable renal ultrasound. No stones, masses or hydronephrosis. Central Venous Line 07/19/25 13:50 IMPRESSION: Fluoroscopy used during portacatheter placement. Scrotum Ultrasound 07/20/25 19:05 IMPRESSION: 1. Diffuse scrotal wall thickening. Consider an infectious/inflammatory process such as cellulitis, lymphedema or systemic causes like cirrhosis, nephrotic syndrome or generalized edema. Soft Tissue Ultrasound 07/20/25 19:10 Impression: 1: Area of superficial venous thrombosis corresponds to the area of left arm swelling. Chest X-Ray 07/22/25 17:19 Impression: 1: Developing left basilar airspace disease, consistent with pneumonia. Labs Labs: Laboratory Results - last 24 hr 07/26/25 07/27/25 07/27/25 19:44 05:20 07:51 WBC 20.8 H RBC 2.64 L Hgb 8.2 L Hct 26.7 L MCV 101.1 H MCH 31.1 MCHC 30.7 L RDW 14.5 Plt Count 225 MPV 9.5 Immature Gran % (Auto) 7.2 H Neut % (Auto) 78.3 H Lymph % (Auto) 5.8 L [place] % (Auto) 6.4 Eos % (Auto) 1.9 Baso % (Auto) 0.4 Lymph # (Auto) 1.20 [place] # (Auto) 1.3 H Eos # (Auto) 0.4 H Baso # (Auto) 0.1 Abs Immat Gran (auto) 1.50 H Absolute Neuts (auto) 16.3 H Absolute Nucleated RBC 0.020 H Nucleated RBC % 0.1 Sodium 127 L Potassium 5.0 Chloride 95 L Carbon Dioxide 28 Anion Gap 4 BUN 72 H D Creatinine 4.93 H Estim Creat Clear Calc 24 Estimated GFR 12 L Glucose 150 H POC Capillary Glucose 148 H 162 H Calcium 9.4 Magnesium 2.4 H Total Bilirubin 0.5 AST 113 H ALT 45 Alkaline Phosphatase 74 Total Protein 4.8 L Albumin 2.6 L 07/27/25 07/27/25 12:47 16:53 WBC RBC Hgb Hct MCV MCH MCHC RDW Plt Count MPV Immature Gran % (Auto) Neut % (Auto) Lymph % (Auto) [place] % (Auto) Eos % (Auto) Baso % (Auto) Lymph # (Auto) [place] # (Auto) Eos # (Auto) Baso # (Auto) Abs Immat Gran (auto) Absolute Neuts (auto) Absolute Nucleated RBC Nucleated RBC % Sodium Potassium Chloride Carbon Dioxide Anion Gap BUN Creatinine Estim Creat Clear Calc Estimated GFR Glucose POC Capillary Glucose 113 H 143 H Calcium Magnesium Total Bilirubin AST ALT Alkaline Phosphatase Total Protein Albumin
[2025-07-28] VITALS (14 sets, daily range): BP systolic 125–141; BP diastolic 45–59; PULSE 70–90; RESP 16–20; TEMP 36.4–36.6; O2SAT 91–94
[2025-07-28] MEDS: oxyCODONE HCL (*CRX) 5 MG TAB IR PO ×4 (03:38→22:05)
[2025-07-28] MEDS: PIPERACILLIN/TAZOBACTAM SOD 2.25 GM in SODIUM CHLORIDE 0.9% IV 50 ML 100 ML IVPB ×3 (05:46→21:45)
[2025-07-28] MEDS: CENTRAL LINE FLUSH 10 ML IV PUSH ×3 (05:46→21:46)
[2025-07-28] MEDS: MICONAZOLE NITRATE 2% CREAM 30 GM TUBE 1 APPLIC TOPICAL ×3 (05:46→21:47)
[2025-07-28] MEDS: CENTRAL LINE FLUSH 20 ML IV PUSH (05:47)
[2025-07-28 05:59] LABS: Hematocrit 25.5 % (42.0-52.0); Hemoglobin 7.8 g/dL (14.0-18.0); Immature Granulocyte Percent A 5.1 % (0-0.5); Lymphocytes Absolute Auto 1.10 K/mm3 (0.9-3.2); Mean Corpuscular HGB Conc 30.6 g/dl (32-36); Mean Corpuscular Hemoglobin 30.7 pg (26-34); Mean Corpuscular Volume 100.4 fl (80-100); Nucleated Red Blood Cells Absolute Auto 0.030 K/mm3 (0.0-0.012); Nucleated Red Blood Cells Perc 0.2 % (0.0-0.2); Platelet Count Result 215 k/mm3 (150-375); Red Blood Count 2.54 M/mm3 (4.6-6.20); White Blood Count 16.7 K/mm3 (4.5-10.0)
[2025-07-28 06:31] LABS: Alanine Aminotransferase 42 U/L (6-50); Albumin Level 2.4 g/dL (3.5-5.1); Alkaline Phosphatase 71 U/L (38-126); Anion Gap 3 mmol/L (4-12); Aspartate Amino Transferase 90 U/L (17-59); Bilirubin,Total 0.6 mg/dL (0.2-1.3); Blood Urea Nitrogen 54 mg/dL (9-20); Calcium 8.5 mg/dL (8.4-10.2); Carbon Dioxide 31 mmol/L (22-30); Chloride 95 mmol/L (98-107); Estimated CRCL calculation 27 ml/min; Estimated Glomerular Filt Rate 16; Glucose 132 mg/dL (65-110); Magnesium 2.2 mg/dL (1.6-2.3); Potassium 4.3 mmol/L (3.4-5.0); Sodium 129 mmol/L (137-145); Total Protein 5.0 g/dL (6.3-8.2)
[2025-07-28] MEDS: LINEZOLID 600 MG TABLET PO ×2 (09:04→21:45)
[2025-07-28] MEDS: CALCIUM ACETATE 667 MG TABLET 2001 MG PO ×3 (09:04→16:02)
[2025-07-28] MEDS: AMIODARONE HCL 200 MG TABLET PO (09:04)
[2025-07-28] MEDS: APIXABAN 2.5 MG TABLET PO ×2 (09:09→21:44)
--- NOTE | 2025-07-28 12:16 | P.PNNP_ITS ---
Progress Note: A&P Assessment and Plan (1) Acute kidney injury: Code(s): N17.9 - Acute kidney failure, unspecified Status: Acute Assessment and Plan: * no evidence of recovery at this time... * as noted by admission labs * progressively worsening as noted by trend of labs since hospitalization began * was also complicated by persistent hyperkalemia unresponsive to medical therapy and declining UOP * baseline creatinine normal: * 1.16mg/dL in October 2024 (by outpatient labs from PCP) * 1.30mg/dL in October 2022 ([facility]) * multifactorial etiology: * rhabdomyolysis * LAURY-I use prior to admission * diuretic use (lasix + spironolactone) prior to admission * prerenal factors(?) * infection/early sepsis(?) * other(?) * evaluation to date noted: * prerenal urine electrolytes * urine eosinophils negative * CPK as already noted * mild proteinuria * renal ultrasound without obstruction * s/p tunneled HD catheter placement (on 07/19/25) * continue Fri/Fri/Friday and PRN Friday schedule while hospitalized until discharge disposition known... * HD tomorrow * follow trend of repeat labs and UOP for to assess for potential renal recovery (2) Hyperkalemia: Code(s): E87.5 - Hyperkalemia Status: Acute Assessment and Plan: * resolved * recurrent since admission * poor response to medical management despite multiple rounds of therapy to date * better control with dialysis * follow trend of K+ (3) Rhabdomyolysis: Code(s): M62.82 - Rhabdomyolysis Status: Acute Assessment and Plan: * resolved * as noted by elevated CPK * likely related to prolonged downtime from fall * contributing to hyperkalemia and KAITLIN * CPK has been downtrending (4) Leukocytosis: Qualifiers: Leukocytosis type: unspecified Qualified Code(s): D72.829 - Elevated white blood cell count, unspecified Code(s): D72.829 - Elevated white blood cell count, unspecified Status: Acute Assessment and Plan: * slow improvement * initial concern was sepsis given associated lactic acidosis, tachycardia, tachypnea on admission * Infectious Disease following with recommendations noted * potential sources noted: * scrotal cellulitis * right arm hematoma * constipation * pneumonia * tinea cruris * elevated CPK * on antibiotics/antifungals as outlined * cultures negative so far * follow trend of WBC (5) Anemia: Code(s): D64.9 - Anemia, unspecified Status: Acute Assessment and Plan: * due to previous IVF hydration, KAITLIN/ARF, and trauma/hematomas * Epogen with HD * check anemia studies * follow trend of H/H (6) Hyponatremia: Code(s): E87.1 - Hypo-osmolality and hyponatremia Status: Acute Assessment and Plan: * acute (on chronic?) * noted as far back as October 2022 * however, on PCP labs in October 2024, sodium was 138mmol/L * suspect due more related to KAITLIN/ARF and diminished urine output/anuria (dilutional) * TSH and cortisol okay * dialysis helping to correct to some degree... (7) Atrial fibrillation and flutter: Code(s): I48.91 - Unspecified atrial fibrillation; I48.92 - Unspecified atrial flutter Status: Chronic Assessment and Plan: * paroxysmal in nature * on amiodarone * on anticoagulation - ok to resume? * however, would recommend coumadin or eliquis as opposed to xarelto given his KIATLIN (8) Transaminitis: Code(s): R74.01 - Elevation of levels of liver transaminase levels Status: Acute Assessment and Plan: * resolved * presumably related to rhabdomyolysis * holding statin * slow improvement noted (9) Hypertension: Code(s): I10 - Essential (primary) hypertension Status: Chronic Assessment and Plan: * reasonable control * running on the soft side at times * follow trend of hemodynamics (10) Diabetes: Code(s): E11.9 - Type 2 diabetes mellitus without complications Status: Chronic Assessment and Plan: * follow accu-cheks * glycemic control per hospitalist Will continue to follow. 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 Exam 2 Narrative: General: elderly but large and WD/WN male in NAD Heart: normal S1 and S2; no rub Lungs: clear anteriorly Abdomen: soft, nontender, nondistended, positive bowel sounds Extremities: no cyanosis or clubbing; 1+ edema (upper and lower extremities) Skin: venous stasis changes over BLEs noted; chronic actinic changes in UEs Objective Data Vital Signs Vital Signs: Vital Signs Temp Pulse Resp BP Pulse Ox O2 Del Method 07/28/25 12:11 97.8 F 76 18 141/59 H 94 07/28/25 09:15 70 07/28/25 09:09 74 07/28/25 09:04 74 07/28/25 04:00 72 07/28/25 03:45 Autopap 07/28/25 01:11 73 94 Autopap 07/28/25 00:00 72 07/27/25 21:00 Room Air 07/27/25 20:00 74 07/27/25 19:41 97.8 F 75 20 105/48 L 93 07/27/25 16:57 77 07/27/25 16:00 74 Intake/Output Intake/Output: Intake & Output 07/25/25 07/26/25 07/27/25 07/28/25 23:59 23:59 23:59 23:59 Intake Total 1020 2100 2170 970 Output Total 1000 2975 50 Balance 20 2100 -805 920 Meds/Results Medications: Active Medications Generic Name Dose Route Start Last Admin Trade Name Freq PRN Reason Stop Dose Admin Acetaminophen 1,000 mg 07/16/25 09:58 07/25/25 13:58 Acetaminophen 500 Mg Tablet PO 1,000 mg Q6H PRN Administration Fever Acetaminophen 500 mg 07/19/25 14:13 07/23/25 15:38 Acetaminophen 500 Mg Tablet PO 500 mg Q6H PRN Administration Pain Rated 1-3 Albuterol/Ipratropium 3 ml 07/17/25 20:40 07/20/25 00:58 Ipratropium 0.5 Mg/Albuterol Sulfate 2.5 Mg Ampul.Neb 3 Ml INHALATION 3 ml Q6HRT PRN Administration wheezing Amiodarone HCl 200 mg 07/15/25 02:30 07/28/25 09:04 Amiodarone Hcl 200 Mg Tablet PO 200 mg DAILY SALMA Administration Apixaban 2.5 mg 07/26/25 21:00 07/28/25 09:09 Apixaban 2.5 Mg Tablet PO 2.5 mg Q12HR SALMA Administration Bisacodyl 5 mg 07/22/25 13:35 07/28/25 09:10 Bisacodyl 5 Mg Tablet Ec PO Not Given QAM SALMA Calcium Acetate 2,001 mg 07/24/25 12:00 07/28/25 12:19 Calcium Acetate 667 Mg Tablet PO 2,001 mg TIDWM SALMA Administration Carvedilol 12.5 mg 07/15/25 09:00 07/28/25 09:09 Carvedilol 12.5 Mg Tablet PO 12.5 mg BID SALMA Administration Dextrose 12.5 gm 07/15/25 01:20 Dextrose 50% 25 Gm/50 Ml Syringe IV PUSH PRN PRN Hypoglycemia Protocol Epoetin Sd-epbx 20,000 units 07/25/25 09:00 07/27/25 12:20 Epoetin Sd-Epbx 20,000 Units/Ml Vial IV PUSH 20,000 units MOWEFR@09 SALMA Administration Glucagon 1 mg 07/15/25 01:20 Glucagon For Inj 1 Mg Vial IM PRN PRN Hypoglycemia Protocol Glucose 15 gm 07/15/25 01:20 Glucose Oral Gel 15 Gm Of Glucse In 37.5 Gm Tube PO PRN PRN Hypoglycemia Protocol Dextrose 1,000 mls @ 100 mls/hr 07/15/25 01:20 Dextrose 5% 1,000 Ml IVPB PRN PRN Hypoglycemia Protocol Albumin Human 50 mls @ 999 mls/hr 07/15/25 15:32 Albutein IVPB 08/14/25 15:31 Q10M PRN HYPOTENSION Piperacillin Sod/Tazobactam 50 mls @ 100 mls/hr 07/20/25 14:00 07/28/25 13:37 Sod 2.25 gm/ Sodium Chloride IVPB Infused Q8H SALMA Infusion Micafungin Sodium 100 mg/ 100 mls @ 100 mls/hr 07/26/25 15:00 07/28/25 14:23 Sodium Chloride IVPB 07/30/25 15:59 100 mls/hr DAILY@1500 SALMA Administration Insulin Aspart 3 - 6 units 07/15/25 08:00 07/28/25 12:19 Insulin Aspart (*Bkc) 100 Units/Ml SUB-Q Not Given TIDWM [facility] Protocol Insulin Aspart 1 - 3 units 07/15/25 21:00 07/27/25 22:04 Insulin Aspart (*Bkc) 100 Units/Ml SUB-Q Not Given HS [facility] Protocol Linezolid 600 mg 07/22/25 14:00 07/28/25 09:04 Linezolid 600 Mg Tablet PO 600 mg Q12HR SALMA Administration Magnesium Hydroxide 30 ml 07/16/25 08:39 Magnesium Hydroxide Susp 30 Ml Udc PO DAILY PRN Constipation Miconazole Nitrate 1 applic 07/26/25 14:00 07/28/25 13:07 Miconazole Nitrate 2% Cream 30 Gm Tube TOPICAL 1 applic Q8HR SALMA Administration Miscellaneous Information 1 each 07/28/25 00:01 07/28/25 14:23 Please Renew Hydromorphones And Oxycodone. Per [employer] Procedure, It Will Discontinue If XX 08/27/25 00:00 Not Given CLARIFY SALMA Naloxone HCl 0.1 mg 07/19/25 14:13 Naloxone Hcl 0.4 Mg/Ml Vial IV PUSH Q2M PRN Opiate Reversal Oxycodone HCl 2.5 mg 07/19/25 14:13 07/21/25 21:03 Oxycodone Hcl (*Crx) 2.5 Mg Tab Ir PO 2.5 mg Q4H PRN Administration Pain Rated 4-6 Oxycodone HCl 5 mg 07/19/25 14:13 07/28/25 14:28 Oxycodone Hcl (*Crx) 5 Mg Tab Ir PO 5 mg Q4H PRN Administration Pain Rated 7-10 Polyethylene Glycol 17 gm 07/16/25 09:00 07/28/25 09:10 Polyethylene Glycol 3350 17 Gm Powd.Pack PO Not Given QAM SALMA Sodium Chloride 10 ml 07/19/25 22:00 07/28/25 13:07 Central Line Flush IV PUSH 10 ml Q8HR SALMA Administration Sodium Chloride 10 ml 07/19/25 17:03 07/24/25 00:32 Central Line Flush IV PUSH 10 ml PRN PRN Administration with TPN bag changes Sodium Chloride 20 ml 07/19/25 17:03 07/28/25 05:47 Central Line Flush IV PUSH 20 ml PRN PRN Administration after blood draws Radiology Results: ITS Impressions Cervical Spine CT 07/15/25 07:00 IMPRESSION: 1. No acute abnormality of the cervical spine. 2: Severe cervical spondylosis. Head CT 07/15/25 07:03 IMPRESSION: 1. No acute intracranial abnormality. Shoulder X-Ray 07/15/25 07:39 Impression: 1: No acute fracture. Wrist X-Ray 07/15/25 07:40 Impression: 1: No acute fracture. Elbow X-Ray 07/15/25 07:41 Impression: 1: No acute fracture. Renal Ultrasound 07/15/25 13:09 Impression: 1: Unremarkable renal ultrasound. No stones, masses or hydronephrosis. Central Venous Line 07/19/25 13:50 IMPRESSION: Fluoroscopy used during portacatheter placement. Scrotum Ultrasound 07/20/25 19:05 IMPRESSION: 1. Diffuse scrotal wall thickening. Consider an infectious/inflammatory process such as cellulitis, lymphedema or systemic causes like cirrhosis, nephrotic syndrome or generalized edema. Soft Tissue Ultrasound 07/20/25 19:10 Impression: 1: Area of superficial venous thrombosis corresponds to the area of left arm swelling. Chest X-Ray 07/22/25 17:19 Impression: 1: Developing left basilar airspace disease, consistent with pneumonia. Labs Labs: Laboratory Tests 07/28/25 05:46 07/28/25 05:46 Calcium 8.5 Phosphorus 4.8 H Magnesium 2.2 Total Bilirubin 0.6 AST 90 H ALT 42 Alkaline Phosphatase 71 Total Protein 5.0 L Albumin 2.4 L
--- NOTE | 2025-07-28 14:00 | WPDINFPN2 ---
Progress Note: A&P Assessment and Plan (1) Leukocytosis: Qualifiers: Leukocytosis type: unspecified Qualified Code(s): D72.829 - Elevated white blood cell count, unspecified Code(s): D72.829 - Elevated white blood cell count, unspecified Status: Acute (2) Cellulitis of scrotum: Code(s): N49.2 - Inflammatory disorders of scrotum Status: Acute (3) Hematoma of right upper extremity: Code(s): S40.021A - Contusion of right upper arm, initial encounter Status: Acute (4) Anemia: Code(s): D64.9 - Anemia, unspecified Status: Acute (5) Rhabdomyolysis: Qualifiers: Rhabdomyolysis type: non-traumatic Qualified Code(s): M62.82 - Rhabdomyolysis Code(s): M62.82 - Rhabdomyolysis Status: Acute (6) Acute kidney injury: Code(s): N17.9 - Acute kidney failure, unspecified Status: Acute (7) Transaminitis: Code(s): R74.01 - Elevation of levels of liver transaminase levels Status: Acute (8) Chronic hyponatremia: Code(s): E87.1 - Hypo-osmolality and hyponatremia Status: Acute (9) Hyperkalemia: Code(s): E87.5 - Hyperkalemia Status: Acute (10) Constipation: Code(s): K59.00 - Constipation, unspecified Status: Acute Plan 1. scrotal cellulitis--cx unrevealing--improving 2. morbid obesity 3. KAITLIN 4. rhabdomyolysis 5. leukocytosis--multifactorial; WBC count down today 6. RUE hematoma 7. ?pneumonia RECOMMENDATIONS continue linezolid, zosyn and micafungin stop micafungin soon miconazole cream to scrotal region blood cxs 07/14 neg and final d/w pharmacist Pt was seen via video telehealth consultation with the assistance of staff, chart, data and patient independently reviewed. Patient was located at [facility] while I was located in my [place] office. Received verbal consent from patient. Subjective Date/time seen: 07/28/25 14:00 Interval history: no pain no pruritis Exam Narrative: morbidly obese on room air, non-toxic, NAD, in chair : +simmons, scrotum better--less drainage Objective Data Vital Signs Vital Signs: Vital Signs - 24 hr 07/27/25 14:07 07/27/25 16:00 07/27/25 16:57 Temperature 98.4 F Pulse Rate 89 74 77 Respiratory Rate 20 Blood Pressure 124/58 L Pulse Oximetry 93 Oxygen Delivery 07/27/25 19:41 07/27/25 20:00 07/27/25 21:00 Temperature 97.8 F Pulse Rate 75 74 Respiratory Rate 20 Blood Pressure 105/48 L Pulse Oximetry 93 Oxygen Delivery Room Air 07/28/25 00:00 07/28/25 01:11 07/28/25 03:45 Temperature Pulse Rate 72 73 Respiratory Rate Blood Pressure Pulse Oximetry 94 Oxygen Delivery Autopap Autopap 07/28/25 04:00 07/28/25 09:04 07/28/25 09:09 Temperature Pulse Rate 72 74 74 Respiratory Rate Blood Pressure Pulse Oximetry Oxygen Delivery 07/28/25 09:15 Temperature Pulse Rate 70 Respiratory Rate Blood Pressure Pulse Oximetry Oxygen Delivery Intake/Output Intake/Output: Intake & Output 07/25/25 07/26/25 07/27/25 07/28/25 23:59 23:59 23:59 23:59 Intake Total 1020 2100 2170 920 Output Total 1000 2975 50 Balance 20 2100 -805 870 Meds/Results Medications: Active Medications Generic Name Dose Route Start Last Admin Trade Name Freq PRN Reason Stop Dose Admin Acetaminophen 1,000 mg 07/16/25 09:58 07/25/25 13:58 Acetaminophen 500 Mg Tablet PO 1,000 mg Q6H PRN Administration Fever Acetaminophen 500 mg 07/19/25 14:13 07/23/25 15:38 Acetaminophen 500 Mg Tablet PO 500 mg Q6H PRN Administration Pain Rated 1-3 Albuterol/Ipratropium 3 ml 07/17/25 20:40 07/20/25 00:58 Ipratropium 0.5 Mg/Albuterol Sulfate 2.5 Mg Ampul.Neb 3 Ml INHALATION 3 ml Q6HRT PRN Administration wheezing Amiodarone HCl 200 mg 07/15/25 02:30 07/28/25 09:04 Amiodarone Hcl 200 Mg Tablet PO 200 mg DAILY SALMA Administration Apixaban 2.5 mg 07/26/25 21:00 07/28/25 09:09 Apixaban 2.5 Mg Tablet PO 2.5 mg Q12HR SALMA Administration Bisacodyl 5 mg 07/22/25 13:35 07/28/25 09:10 Bisacodyl 5 Mg Tablet Ec PO Not Given QAM [facility] Calcium Acetate 2,001 mg 07/24/25 12:00 07/28/25 12:19 Calcium Acetate 667 Mg Tablet PO 2,001 mg TIDWM SALMA Administration Carvedilol 12.5 mg 07/15/25 09:00 07/28/25 09:09 Carvedilol 12.5 Mg Tablet PO 12.5 mg BID SALMA Administration Dextrose 12.5 gm 07/15/25 01:20 Dextrose 50% 25 Gm/50 Ml Syringe IV PUSH PRN PRN Hypoglycemia Protocol Epoetin Sd-epbx 20,000 units 07/25/25 09:00 07/27/25 12:20 Epoetin Sd-Epbx 20,000 Units/Ml Vial IV PUSH 20,000 units MOWEFR@09 SALMA Administration Glucagon 1 mg 07/15/25 01:20 Glucagon For Inj 1 Mg Vial IM PRN PRN Hypoglycemia Protocol Glucose 15 gm 07/15/25 01:20 Glucose Oral Gel 15 Gm Of Glucse In 37.5 Gm Tube PO PRN PRN Hypoglycemia Protocol Hydromorphone HCl 1 mg 07/19/25 14:13 Hydromorphone Hcl Inj (*Crx) 1 Mg/Ml Syr IV PUSH Q2H PRN Breakthrough Pain Rated 7-10 or NPO Hydromorphone HCl 0.5 mg 07/19/25 14:13 Hydromorphone Hcl Inj (*Crx) 1 Mg/Ml Syr IV PUSH Q2H PRN Breakthrough Pain Rated 4-6 or NPO Dextrose 1,000 mls @ 100 mls/hr 07/15/25 01:20 Dextrose 5% 1,000 Ml IVPB PRN PRN Hypoglycemia Protocol Albumin Human 50 mls @ 999 mls/hr 07/15/25 15:32 Albutein IVPB 08/14/25 15:31 Q10M PRN HYPOTENSION Piperacillin Sod/Tazobactam 50 mls @ 100 mls/hr 07/20/25 14:00 07/28/25 13:07 Sod 2.25 gm/ Sodium Chloride IVPB 100 mls/hr Q8H SALMA Administration Micafungin Sodium 100 mg/ 100 mls @ 100 mls/hr 07/26/25 15:00 07/27/25 15:15 Sodium Chloride IVPB 07/30/25 15:59 Infused DAILY@1500 [facility] Infusion Insulin Aspart 3 - 6 units 07/15/25 08:00 07/28/25 12:19 Insulin Aspart (*Bkc) 100 Units/Ml SUB-Q Not Given TIDWM [facility] Protocol Insulin Aspart 1 - 3 units 07/15/25 21:00 07/27/25 22:04 Insulin Aspart (*Bkc) 100 Units/Ml SUB-Q Not Given HS [facility] Protocol Linezolid 600 mg 07/22/25 14:00 07/28/25 09:04 Linezolid 600 Mg Tablet PO 600 mg Q12HR SALMA Administration Magnesium Hydroxide 30 ml 07/16/25 08:39 Magnesium Hydroxide Susp 30 Ml Udc PO DAILY PRN Constipation Miconazole Nitrate 1 applic 07/26/25 14:00 07/28/25 13:07 Miconazole Nitrate 2% Cream 30 Gm Tube TOPICAL 1 applic Q8HR SALMA Administration Naloxone HCl 0.1 mg 07/19/25 14:13 Naloxone Hcl 0.4 Mg/Ml Vial IV PUSH Q2M PRN Opiate Reversal Oxycodone HCl 2.5 mg 07/19/25 14:13 07/21/25 21:03 Oxycodone Hcl (*Crx) 2.5 Mg Tab Ir PO 2.5 mg Q4H PRN Administration Pain Rated 4-6 Oxycodone HCl 5 mg 07/19/25 14:13 07/28/25 09:13 Oxycodone Hcl (*Crx) 5 Mg Tab Ir PO 5 mg Q4H PRN Administration Pain Rated 7-10 Polyethylene Glycol 17 gm 07/16/25 09:00 07/28/25 09:10 Polyethylene Glycol 3350 17 Gm Powd.Pack PO Not Given QAM SALMA Sodium Chloride 10 ml 07/19/25 22:00 07/28/25 13:07 Central Line Flush IV PUSH 10 ml Q8HR SALMA Administration Sodium Chloride 10 ml 07/19/25 17:03 07/24/25 00:32 Central Line Flush IV PUSH 10 ml PRN PRN Administration with TPN bag changes Sodium Chloride 20 ml 07/19/25 17:03 07/28/25 05:47 Central Line Flush IV PUSH 20 ml PRN PRN Administration after blood draws Radiology Results: ITS Impressions Cervical Spine CT 07/15/25 07:00 IMPRESSION: 1. No acute abnormality of the cervical spine. 2: Severe cervical spondylosis. Head CT 07/15/25 07:03 IMPRESSION: 1. No acute intracranial abnormality. Shoulder X-Ray 07/15/25 07:39 Impression: 1: No acute fracture. Wrist X-Ray 07/15/25 07:40 Impression: 1: No acute fracture. Elbow X-Ray 07/15/25 07:41 Impression: 1: No acute fracture. Renal Ultrasound 07/15/25 13:09 Impression: 1: Unremarkable renal ultrasound. No stones, masses or hydronephrosis. Central Venous Line 07/19/25 13:50 IMPRESSION: Fluoroscopy used during portacatheter placement. Scrotum Ultrasound 07/20/25 19:05 IMPRESSION: 1. Diffuse scrotal wall thickening. Consider an infectious/inflammatory process such as cellulitis, lymphedema or systemic causes like cirrhosis, nephrotic syndrome or generalized edema. Soft Tissue Ultrasound 07/20/25 19:10 Impression: 1: Area of superficial venous thrombosis corresponds to the area of left arm swelling. Chest X-Ray 07/22/25 17:19 Impression: 1: Developing left basilar airspace disease, consistent with pneumonia. Labs Labs: Laboratory Results - last 24 hr 07/27/25 07/27/25 07/28/25 16:53 20:04 05:46 WBC 16.7 H RBC 2.54 L Hgb 7.8 L Hct 25.5 L MCV 100.4 H MCH 30.7 MCHC 30.6 L RDW 14.7 H Plt Count 215 MPV 9.5 Immature Gran % (Auto) 5.1 H Neut % (Auto) 78.3 H Lymph % (Auto) 6.6 L [place] % (Auto) 7.8 Eos % (Auto) 1.7 Baso % (Auto) 0.5 Lymph # (Auto) 1.10 [place] # (Auto) 1.3 H Eos # (Auto) 0.3 Baso # (Auto) 0.1 Abs Immat Gran (auto) 0.85 H Absolute Neuts (auto) 13.1 H Absolute Nucleated RBC 0.030 H Nucleated RBC % 0.2 Sodium 129 L Potassium 4.3 Chloride 95 L Carbon Dioxide 31 H Anion Gap 3 L BUN 54 H D Creatinine 3.82 H Estim Creat Clear Calc 27 Estimated GFR 16 L Glucose 132 H POC Capillary Glucose 143 H 193 H Calcium 8.5 Phosphorus 4.8 H Magnesium 2.2 Total Bilirubin 0.6 AST 90 H ALT 42 Alkaline Phosphatase 71 Total Protein 5.0 L Albumin 2.4 L 07/28/25 07/28/25 07:29 11:34 WBC RBC Hgb Hct MCV MCH MCHC RDW Plt Count MPV Immature Gran % (Auto) Neut % (Auto) Lymph % (Auto) [place] % (Auto) Eos % (Auto) Baso % (Auto) Lymph # (Auto) [place] # (Auto) Eos # (Auto) Baso # (Auto) Abs Immat Gran (auto) Absolute Neuts (auto) Absolute Nucleated RBC Nucleated RBC % Sodium Potassium Chloride Carbon Dioxide Anion Gap BUN Creatinine Estim Creat Clear Calc Estimated GFR Glucose POC Capillary Glucose 123 H 151 H Calcium Phosphorus Magnesium Total Bilirubin AST ALT Alkaline Phosphatase Total Protein Albumin
--- NOTE | 2025-07-28 14:06 | P.PNINF_ITS ---
Progress Note: A&P Assessment and Plan (1) Leukocytosis: Qualifiers: Leukocytosis type: unspecified Qualified Code(s): D72.829 - Elevated white blood cell count, unspecified Code(s): D72.829 - Elevated white blood cell count, unspecified Status: Acute (2) Cellulitis of scrotum: Code(s): N49.2 - Inflammatory disorders of scrotum Status: Acute (3) Hematoma of right upper extremity: Code(s): S40.021A - Contusion of right upper arm, initial encounter Status: Acute (4) Anemia: Code(s): D64.9 - Anemia, unspecified Status: Acute (5) Rhabdomyolysis: Qualifiers: Rhabdomyolysis type: non-traumatic Qualified Code(s): M62.82 - Rhabdomyolysis Code(s): M62.82 - Rhabdomyolysis Status: Acute (6) Acute kidney injury: Code(s): N17.9 - Acute kidney failure, unspecified Status: Acute (7) Transaminitis: Code(s): R74.01 - Elevation of levels of liver transaminase levels Status: Acute (8) Chronic hyponatremia: Code(s): E87.1 - Hypo-osmolality and hyponatremia Status: Acute (9) Hyperkalemia: Code(s): E87.5 - Hyperkalemia Status: Acute (10) Constipation: Code(s): K59.00 - Constipation, unspecified Status: Acute Plan 1. scrotal cellulitis--cx unrevealing--improving 2. morbid obesity 3. KAITLIN 4. rhabdomyolysis 5. leukocytosis--multifactorial; WBC count down today 6. RUE hematoma 7. ?pneumonia RECOMMENDATIONS continue linezolid, zosyn and micafungin stop micafungin soon miconazole cream to scrotal region blood cxs 07/14 neg and final d/w pharmacist Pt was seen via video telehealth consultation with the assistance of staff, chart, data and patient independently reviewed. Patient was located at [facility] while I was located in my [place] office. Received verbal consent from patient. Subjective Date/time seen: 07/28/25 14:06 Interval history: no pain no pruritis Exam Narrative: morbidly obese on room air, non-toxic, NAD, in chair : +simmons, scrotum better--less drainage Objective Data Vital Signs Vital Signs: Vital Signs - 24 hr 07/27/25 14:07 07/27/25 16:00 07/27/25 16:57 Temperature 98.4 F Pulse Rate 89 74 77 Respiratory Rate 20 Blood Pressure 124/58 L Pulse Oximetry 93 Oxygen Delivery 07/27/25 19:41 07/27/25 20:00 07/27/25 21:00 Temperature 97.8 F Pulse Rate 75 74 Respiratory Rate 20 Blood Pressure 105/48 L Pulse Oximetry 93 Oxygen Delivery Room Air 07/28/25 00:00 07/28/25 01:11 07/28/25 03:45 Temperature Pulse Rate 72 73 Respiratory Rate Blood Pressure Pulse Oximetry 94 Oxygen Delivery Autopap Autopap 07/28/25 04:00 07/28/25 09:04 07/28/25 09:09 Temperature Pulse Rate 72 74 74 Respiratory Rate Blood Pressure Pulse Oximetry Oxygen Delivery 07/28/25 09:15 Temperature Pulse Rate 70 Respiratory Rate Blood Pressure Pulse Oximetry Oxygen Delivery Intake/Output Intake/Output: Intake & Output 07/25/25 07/26/25 07/27/25 07/28/25 23:59 23:59 23:59 23:59 Intake Total 1020 2100 2170 920 Output Total 1000 2975 50 Balance 20 2100 -805 870 Meds/Results Medications: Active Medications Generic Name Dose Route Start Last Admin Trade Name Freq PRN Reason Stop Dose Admin Acetaminophen 1,000 mg 07/16/25 09:58 07/25/25 13:58 Acetaminophen 500 Mg Tablet PO 1,000 mg Q6H PRN Administration Fever Acetaminophen 500 mg 07/19/25 14:13 07/23/25 15:38 Acetaminophen 500 Mg Tablet PO 500 mg Q6H PRN Administration Pain Rated 1-3 Albuterol/Ipratropium 3 ml 07/17/25 20:40 07/20/25 00:58 Ipratropium 0.5 Mg/Albuterol Sulfate 2.5 Mg Ampul.Neb 3 Ml INHALATION 3 ml Q6HRT PRN Administration wheezing Amiodarone HCl 200 mg 07/15/25 02:30 07/28/25 09:04 Amiodarone Hcl 200 Mg Tablet PO 200 mg DAILY SALMA Administration Apixaban 2.5 mg 07/26/25 21:00 07/28/25 09:09 Apixaban 2.5 Mg Tablet PO 2.5 mg Q12HR [facility] Administration Bisacodyl 5 mg 07/22/25 13:35 07/28/25 09:10 Bisacodyl 5 Mg Tablet Ec PO Not Given QAM [facility] Calcium Acetate 2,001 mg 07/24/25 12:00 07/28/25 12:19 Calcium Acetate 667 Mg Tablet PO 2,001 mg TIDWM [facility] Administration Carvedilol 12.5 mg 07/15/25 09:00 07/28/25 09:09 Carvedilol 12.5 Mg Tablet PO 12.5 mg BID [facility] Administration Dextrose 12.5 gm 07/15/25 01:20 Dextrose 50% 25 Gm/50 Ml Syringe IV PUSH PRN PRN Hypoglycemia Protocol Epoetin Sd-epbx 20,000 units 07/25/25 09:00 07/27/25 12:20 Epoetin Sd-Epbx 20,000 Units/Ml Vial IV PUSH 20,000 units MOWEFR@09 [facility] Administration Glucagon 1 mg 07/15/25 01:20 Glucagon For Inj 1 Mg Vial IM PRN PRN Hypoglycemia Protocol Glucose 15 gm 07/15/25 01:20 Glucose Oral Gel 15 Gm Of Glucse In 37.5 Gm Tube PO PRN PRN Hypoglycemia Protocol Hydromorphone HCl 1 mg 07/19/25 14:13 Hydromorphone Hcl Inj (*Crx) 1 Mg/Ml Syr IV PUSH Q2H PRN Breakthrough Pain Rated 7-10 or NPO Hydromorphone HCl 0.5 mg 07/19/25 14:13 Hydromorphone Hcl Inj (*Crx) 1 Mg/Ml Syr IV PUSH Q2H PRN Breakthrough Pain Rated 4-6 or NPO Dextrose 1,000 mls @ 100 mls/hr 07/15/25 01:20 Dextrose 5% 1,000 Ml IVPB PRN PRN Hypoglycemia Protocol Albumin Human 50 mls @ 999 mls/hr 07/15/25 15:32 Albutein IVPB 08/14/25 15:31 Q10M PRN HYPOTENSION Piperacillin Sod/Tazobactam 50 mls @ 100 mls/hr 07/20/25 14:00 07/28/25 13:07 Sod 2.25 gm/ Sodium Chloride IVPB 100 mls/hr Q8H [facility] Administration Micafungin Sodium 100 mg/ 100 mls @ 100 mls/hr 07/26/25 15:00 07/27/25 15:15 Sodium Chloride IVPB 07/30/25 15:59 Infused DAILY@1500 [facility] Infusion Insulin Aspart 3 - 6 units 07/15/25 08:00 07/28/25 12:19 Insulin Aspart (*Bkc) 100 Units/Ml SUB-Q Not Given TIDWM [facility] Protocol Insulin Aspart 1 - 3 units 07/15/25 21:00 07/27/25 22:04 Insulin Aspart (*Bkc) 100 Units/Ml SUB-Q Not Given HS [facility] Protocol Linezolid 600 mg 07/22/25 14:00 07/28/25 09:04 Linezolid 600 Mg Tablet PO 600 mg Q12HR [facility] Administration Magnesium Hydroxide 30 ml 07/16/25 08:39 Magnesium Hydroxide Susp 30 Ml Udc PO DAILY PRN Constipation Miconazole Nitrate 1 applic 07/26/25 14:00 07/28/25 13:07 Miconazole Nitrate 2% Cream 30 Gm Tube TOPICAL 1 applic Q8HR [facility] Administration Naloxone HCl 0.1 mg 07/19/25 14:13 Naloxone Hcl 0.4 Mg/Ml Vial IV PUSH Q2M PRN Opiate Reversal Oxycodone HCl 2.5 mg 07/19/25 14:13 07/21/25 21:03 Oxycodone Hcl (*Crx) 2.5 Mg Tab Ir PO 2.5 mg Q4H PRN Administration Pain Rated 4-6 Oxycodone HCl 5 mg 07/19/25 14:13 07/28/25 09:13 Oxycodone Hcl (*Crx) 5 Mg Tab Ir PO 5 mg Q4H PRN Administration Pain Rated 7-10 Polyethylene Glycol 17 gm 07/16/25 09:00 07/28/25 09:10 Polyethylene Glycol 3350 17 Gm Powd.Pack PO Not Given QAM [facility] Sodium Chloride 10 ml 07/19/25 22:00 07/28/25 13:07 Central Line Flush IV PUSH 10 ml Q8HR SALMA Administration Sodium Chloride 10 ml 07/19/25 17:03 07/24/25 00:32 Central Line Flush IV PUSH 10 ml PRN PRN Administration with TPN bag changes Sodium Chloride 20 ml 07/19/25 17:03 07/28/25 05:47 Central Line Flush IV PUSH 20 ml PRN PRN Administration after blood draws Radiology Results: ITS Impressions Cervical Spine CT 07/15/25 07:00 IMPRESSION: 1. No acute abnormality of the cervical spine. 2: Severe cervical spondylosis. Head CT 07/15/25 07:03 IMPRESSION: 1. No acute intracranial abnormality. Shoulder X-Ray 07/15/25 07:39 Impression: 1: No acute fracture. Wrist X-Ray 07/15/25 07:40 Impression: 1: No acute fracture. Elbow X-Ray 07/15/25 07:41 Impression: 1: No acute fracture. Renal Ultrasound 07/15/25 13:09 Impression: 1: Unremarkable renal ultrasound. No stones, masses or hydronephrosis. Central Venous Line 07/19/25 13:50 IMPRESSION: Fluoroscopy used during portacatheter placement. Scrotum Ultrasound 07/20/25 19:05 IMPRESSION: 1. Diffuse scrotal wall thickening. Consider an infectious/inflammatory process such as cellulitis, lymphedema or systemic causes like cirrhosis, nephrotic syndrome or generalized edema. Soft Tissue Ultrasound 07/20/25 19:10 Impression: 1: Area of superficial venous thrombosis corresponds to the area of left arm swelling. Chest X-Ray 07/22/25 17:19 Impression: 1: Developing left basilar airspace disease, consistent with pneumonia. Labs Labs: Laboratory Results - last 24 hr 07/27/25 07/27/25 07/28/25 16:53 20:04 05:46 WBC 16.7 H RBC 2.54 L Hgb 7.8 L Hct 25.5 L MCV 100.4 H MCH 30.7 MCHC 30.6 L RDW 14.7 H Plt Count 215 MPV 9.5 Immature Gran % (Auto) 5.1 H Neut % (Auto) 78.3 H Lymph % (Auto) 6.[address] [place] % (Auto) 7.8 Eos % (Auto) 1.7 Baso % (Auto) 0.5 Lymph # (Auto) 1.10 [place] # (Auto) 1.3 H Eos # (Auto) 0.3 Baso # (Auto) 0.1 Abs Immat Gran (auto) 0.85 H Absolute Neuts (auto) 13.1 H Absolute Nucleated RBC 0.030 H Nucleated RBC % 0.2 Sodium 129 L Potassium 4.3 Chloride 95 L Carbon Dioxide 31 H Anion Gap 3 L BUN 54 H D Creatinine 3.82 H Estim Creat Clear Calc 27 Estimated GFR 16 L Glucose 132 H POC Capillary Glucose 143 H 193 H Calcium 8.5 Phosphorus 4.8 H Magnesium 2.2 Total Bilirubin 0.6 AST 90 H ALT 42 Alkaline Phosphatase 71 Total Protein 5.0 L Albumin 2.4 L 07/28/25 07/28/25 07:29 11:34 WBC RBC Hgb Hct MCV MCH MCHC RDW Plt Count MPV Immature Gran % (Auto) Neut % (Auto) Lymph % (Auto) [place] % (Auto) Eos % (Auto) Baso % (Auto) Lymph # (Auto) [place] # (Auto) Eos # (Auto) Baso # (Auto) Abs Immat Gran (auto) Absolute Neuts (auto) Absolute Nucleated RBC Nucleated RBC % Sodium Potassium Chloride Carbon Dioxide Anion Gap BUN Creatinine Estim Creat Clear Calc Estimated GFR Glucose POC Capillary Glucose 123 H 151 H Calcium Phosphorus Magnesium Total Bilirubin AST ALT Alkaline Phosphatase Total Protein Albumin
[2025-07-28] MEDS: MICAFUNGIN SODIUM 100 MG in SODIUM CHLORIDE 0.9% IV 100 ML IVPB (14:23)
[2025-07-28] MEDS: ALTEPLASE 2 MG VIAL (CATHFLO) IV PUSH ×2 (23:40→23:41)
[2025-07-29] VITALS (32 sets, daily range): BP systolic 99–143; BP diastolic 36–87; PULSE 69–92; RESP 18–20; TEMP 36.1–37; O2SAT 91–96
[2025-07-29] MEDS: MICONAZOLE NITRATE 2% CREAM 30 GM TUBE 1 APPLIC TOPICAL ×3 (05:31→20:39)
[2025-07-29] MEDS: CENTRAL LINE FLUSH 10 ML IV PUSH ×3 (05:32→20:47)
[2025-07-29] MEDS: PIPERACILLIN/TAZOBACTAM SOD 2.25 GM in SODIUM CHLORIDE 0.9% IV 50 ML 100 ML IVPB ×2 (05:32→13:04)
[2025-07-29] MEDS: CENTRAL LINE FLUSH 20 ML IV PUSH (05:32)
[2025-07-29 05:35] LABS: Hematocrit 26.9 % (42.0-52.0); Hemoglobin 8.2 g/dL (14.0-18.0); Immature Granulocyte Percent A 2.9 % (0-0.5); Lymphocytes Absolute Auto 0.97 K/mm3 (0.9-3.2); Mean Corpuscular HGB Conc 30.5 g/dl (32-36); Mean Corpuscular Hemoglobin 30.7 pg (26-34); Mean Corpuscular Volume 100.7 fl (80-100); Nucleated Red Blood Cells Absolute Auto 0.000 K/mm3 (0.0-0.012); Nucleated Red Blood Cells Perc 0.0 % (0.0-0.2); Platelet Count Result 233 k/mm3 (150-375); Red Blood Count 2.67 M/mm3 (4.6-6.20); White Blood Count 17.0 K/mm3 (4.5-10.0)
[2025-07-29 05:54] LABS: Anion Gap 4 mmol/L (4-12); Blood Urea Nitrogen 75 mg/dL (9-20); Calcium 9.3 mg/dL (8.4-10.2); Carbon Dioxide 29 mmol/L (22-30); Chloride 94 mmol/L (98-107); Estimated CRCL calculation 24 ml/min; Estimated Glomerular Filt Rate 12; Glucose 138 mg/dL (65-110); Magnesium 2.4 mg/dL (1.6-2.3); Potassium 4.6 mmol/L (3.4-5.0); Sodium 127 mmol/L (137-145)
[2025-07-29] MEDS: oxyCODONE HCL (*CRX) 5 MG TAB IR PO ×4 (06:56→20:37)
--- NOTE | 2025-07-29 08:43 | PCPTNOTE ---
The patient treatment was not able to be completed due to patient out of room for dialysis. Will plan to continue treatment per plan of care.
--- NOTE | 2025-07-29 09:06 | P.PNNP_ITS ---
Progress Note: A&P Assessment and Plan (1) Acute kidney injury: Code(s): N17.9 - Acute kidney failure, unspecified Status: Acute Assessment and Plan: * no significant evidence of recovery at this time... * however, is making a bit more urine (previously anuric) * as noted by admission labs * progressively worsening as noted by trend of labs since hospitalization began * was also complicated by persistent hyperkalemia unresponsive to medical therapy and declining UOP * baseline creatinine normal: * 1.16mg/dL in October 2024 (by outpatient labs from PCP) * 1.30mg/dL in October 2022 ([facility]) * multifactorial etiology: * rhabdomyolysis * LAURY-I use prior to admission * diuretic use (lasix + spironolactone) prior to admission * prerenal factors(?) * infection/early sepsis(?) * other(?) * evaluation to date noted: * prerenal urine electrolytes * urine eosinophils negative * CPK as already noted * mild proteinuria * renal ultrasound without obstruction * s/p tunneled HD catheter placement (on 07/19/25) * continue Fri/Fri/Friday and PRN Friday schedule while hospitalized until discharge disposition known... * HD today * follow trend of repeat labs and UOP for to assess for potential renal recovery (2) Hyperkalemia: Code(s): E87.5 - Hyperkalemia Status: Acute Assessment and Plan: * resolved * recurrent since admission * poor response to medical management despite multiple rounds of therapy to date * better control with dialysis * follow trend of K+ (3) Rhabdomyolysis: Code(s): M62.82 - Rhabdomyolysis Status: Acute Assessment and Plan: * resolved * as noted by elevated CPK * likely related to prolonged downtime from fall * contributing to hyperkalemia and KAITLIN * CPK has been downtrending (4) Leukocytosis: Qualifiers: Leukocytosis type: unspecified Qualified Code(s): D72.829 - Elevated white blood cell count, unspecified Code(s): D72.829 - Elevated white blood cell count, unspecified Status: Acute Assessment and Plan: * slow improvement * initial concern was sepsis given associated lactic acidosis, tachycardia, tachypnea on admission * Infectious Disease following with recommendations noted * potential sources noted: * scrotal cellulitis * right arm hematoma * constipation * pneumonia * tinea cruris * elevated CPK * on antibiotics/antifungals as outlined * cultures negative so far * follow trend of WBC (5) Anemia: Code(s): D64.9 - Anemia, unspecified Status: Acute Assessment and Plan: * due to previous IVF hydration, KAITLIN/ARF, and trauma/hematomas * Epogen with HD * check anemia studies * follow trend of H/H (6) Hyponatremia: Code(s): E87.1 - Hypo-osmolality and hyponatremia Status: Acute Assessment and Plan: * acute (on chronic?) * noted as far back as October 2022 * however, on PCP labs in October 2024, sodium was 138mmol/L * suspect due more related to KAITLIN/ARF and diminished urine output/anuria (dilutional) * TSH and cortisol okay * dialysis helping to correct to some degree... (7) Atrial fibrillation and flutter: Code(s): I48.91 - Unspecified atrial fibrillation; I48.92 - Unspecified atrial flutter Status: Chronic Assessment and Plan: * paroxysmal in nature * on amiodarone * on anticoagulation - ok to resume? * however, would recommend coumadin or eliquis as opposed to xarelto given his KAITLIN (8) Transaminitis: Code(s): R74.01 - Elevation of levels of liver transaminase levels Status: Acute Assessment and Plan: * resolved * presumably related to rhabdomyolysis * holding statin * slow improvement noted (9) Hypertension: Code(s): I10 - Essential (primary) hypertension Status: Chronic Assessment and Plan: * reasonable control * running on the soft side at times * follow trend of hemodynamics (10) Diabetes: Code(s): E11.9 - Type 2 diabetes mellitus without complications Status: Chronic Assessment and Plan: * follow accu-cheks * glycemic control per hospitalist Will continue to follow. L Subjective Date/time seen: 07/29/25 09:06 Interval history: Follow-up for acute kidney injury/acute renal failure requiring [employer]ANCE CASE [employer]GER/hemodialysis Tolerating dialysis treatment at the time of my visit (seen on HD at 8:55am); no apparent distress noted when seen; no issues/events overnight or earlier this morning; overall, feels reasonably well. Exam 2 Narrative: General: elderly but large and WD/WN male in NAD Heart: normal S1 and S2; no rub Lungs: clear anteriorly Abdomen: soft, nontender, nondistended, positive bowel sounds Extremities: no cyanosis or clubbing; trace - 1+ edema (upper and lower extremities) Skin: venous stasis changes over BLEs present; chronic actinic changes in UEs Objective Data Vital Signs Vital Signs: Vital Signs Temp Pulse Resp BP Pulse Ox O2 Del Method FiO2 07/29/25 09:00 71 103/69 07/29/25 08:45 69 101/65 07/29/25 08:30 69 115/68 07/29/25 08:15 71 135/75 07/29/25 08:00 71 119/87 07/29/25 07:47 98.1 F 74 18 125/68 94 07/29/25 04:02 97 F L 78 20 122/49 L 91 07/29/25 00:00 92 07/28/25 20:03 97.5 F L 74 20 126/54 L 94 07/28/25 20:00 78 07/28/25 20:00 78 20 91 Room Air 21 07/28/25 19:35 94 Room Air 07/28/25 16:02 80 07/28/25 16:00 74 Intake/Output Intake/Output: Intake & Output 07/26/25 07/27/25 07/28/25 07/29/25 23:59 23:59 23:59 23:59 Intake Total 2100 2170 1360 560 Output Total 2975 50 400 Balance 2100 -805 1310 160 Meds/Results Medications: Active Medications Generic Name Dose Route Start Last Admin Trade Name Freq PRN Reason Stop Dose Admin Acetaminophen 1,000 mg 07/16/25 09:58 07/25/25 13:58 Acetaminophen 500 Mg Tablet PO 1,000 mg Q6H PRN Administration Fever Acetaminophen 500 mg 07/19/25 14:13 07/23/25 15:38 Acetaminophen 500 Mg Tablet PO 500 mg Q6H PRN Administration Pain Rated 1-3 Albuterol/Ipratropium 3 ml 07/17/25 20:40 07/20/25 00:58 Ipratropium 0.5 Mg/Albuterol Sulfate 2.5 Mg Ampul.Neb 3 Ml INHALATION 3 ml Q6HRT PRN Administration wheezing Alteplase, Recombinant 2 mg 07/28/25 23:16 07/28/25 23:41 Alteplase 2 Mg Vial (Cathflo) IV PUSH 2 mg ONCE PRN Administration Line Occlusion Amiodarone HCl 200 mg 07/15/25 02:30 07/29/25 12:41 Amiodarone Hcl 200 Mg Tablet PO 200 mg DAILY SALMA Administration Apixaban 2.5 mg 07/26/25 21:00 07/29/25 12:41 Apixaban 2.5 Mg Tablet PO 2.5 mg Q12HR [facility] Administration Bisacodyl 5 mg 07/22/25 13:35 07/29/25 12:39 Bisacodyl 5 Mg Tablet Ec PO Not Given QAM [facility] Calcium Acetate 2,001 mg 07/24/25 12:00 07/29/25 12:40 Calcium Acetate 667 Mg Tablet PO 2,001 mg TIDWM [facility] Administration Carvedilol 12.5 mg 07/15/25 09:00 07/29/25 12:40 Carvedilol 12.5 Mg Tablet PO 12.5 mg BID SALMA Administration Dextrose 12.5 gm 07/15/25 01:20 Dextrose 50% 25 Gm/50 Ml Syringe IV PUSH PRN PRN Hypoglycemia Protocol Epoetin Sd-epbx 20,000 units 07/25/25 09:00 07/29/25 11:01 Epoetin Sd-Epbx 20,000 Units/Ml Vial IV PUSH 20,000 units MOWEFR@09 [facility] Administration Glucagon 1 mg 07/15/25 01:20 Glucagon For Inj 1 Mg Vial IM PRN PRN Hypoglycemia Protocol Glucose 15 gm 07/15/25 01:20 Glucose Oral Gel 15 Gm Of Glucse In 37.5 Gm Tube PO PRN PRN Hypoglycemia Protocol Dextrose 1,000 mls @ 100 mls/hr 07/15/25 01:20 Dextrose 5% 1,000 Ml IVPB PRN PRN Hypoglycemia Protocol Albumin Human 50 mls @ 999 mls/hr 07/15/25 15:32 Albutein IVPB 08/14/25 15:31 Q10M PRN HYPOTENSION Micafungin Sodium 100 mg/ 100 mls @ 100 mls/hr 07/26/25 15:00 07/29/25 14:26 Sodium Chloride IVPB 07/30/25 15:59 100 mls/hr DAILY@1500 [facility] Administration Daptomycin 800 mg/ Sodium 50 mls @ 100 mls/hr 07/29/25 15:00 Chloride IVPB Q48H [facility] Meropenem 500 mg/ Sodium 100 mls @ 200 mls/hr 07/29/25 14:00 07/29/25 14:24 Chloride IVPB Infused Q24H [facility] Infusion Insulin Aspart 3 - 6 units 07/15/25 08:00 07/29/25 12:43 Insulin Aspart (*Bkc) 100 Units/Ml SUB-Q Not Given TIDWM [facility] Protocol Insulin Aspart 1 - 3 units 07/15/25 21:00 07/28/25 21:47 Insulin Aspart (*Bkc) 100 Units/Ml SUB-Q Not Given HS [facility] Protocol Magnesium Hydroxide 30 ml 07/16/25 08:39 Magnesium Hydroxide Susp 30 Ml Udc PO DAILY PRN Constipation Miconazole Nitrate 1 applic 07/26/25 14:00 07/29/25 13:04 Miconazole Nitrate 2% Cream 30 Gm Tube TOPICAL 1 applic Q8HR [facility]MA Administration Miscellaneous Information 1 each 07/28/25 00:01 07/29/25 09:47 Please Renew Hydromorphones And Oxycodone. Per [employer] Procedure, It Will Discontinue If XX 08/27/25 00:00 Not Given CLARIFY [facility]MA Naloxone HCl 0.1 mg 07/19/25 14:13 Naloxone Hcl 0.4 Mg/Ml Vial IV PUSH Q2M PRN Opiate Reversal Oxycodone HCl 2.5 mg 07/19/25 14:13 07/21/25 21:03 Oxycodone Hcl (*Crx) 2.5 Mg Tab Ir PO 2.5 mg Q4H PRN Administration Pain Rated 4-6 Oxycodone HCl 5 mg 07/19/25 14:13 07/29/25 12:41 Oxycodone Hcl (*Crx) 5 Mg Tab Ir PO 5 mg Q4H PRN Administration Pain Rated 7-10 Polyethylene Glycol 17 gm 07/16/25 09:00 07/29/25 12:39 Polyethylene Glycol 3350 17 Gm Powd.Pack PO Not Given QAM [facility] Sodium Chloride 10 ml 07/19/25 22:00 07/29/25 13:04 Central Line Flush IV PUSH 10 ml Q8HR [facility] Administration Sodium Chloride 10 ml 07/19/25 17:03 07/24/25 00:32 Central Line Flush IV PUSH 10 ml PRN PRN Administration with TPN bag changes Sodium Chloride 20 ml 07/19/25 17:03 07/29/25 05:32 Central Line Flush IV PUSH 20 ml PRN PRN Administration after blood draws Radiology Results: ITS Impressions Cervical Spine CT 07/15/25 07:00 IMPRESSION: 1. No acute abnormality of the cervical spine. 2: Severe cervical spondylosis. Head CT 07/15/25 07:03 IMPRESSION: 1. No acute intracranial abnormality. Shoulder X-Ray 07/15/25 07:39 Impression: 1: No acute fracture. Wrist X-Ray 07/15/25 07:40 Impression: 1: No acute fracture. Elbow X-Ray 07/15/25 07:41 Impression: 1: No acute fracture. Renal Ultrasound 07/15/25 13:09 Impression: 1: Unremarkable renal ultrasound. No stones, masses or hydronephrosis. Central Venous Line 07/19/25 13:50 IMPRESSION: Fluoroscopy used during portacatheter placement. Scrotum Ultrasound 07/20/25 19:05 IMPRESSION: 1. Diffuse scrotal wall thickening. Consider an infectious/inflammatory process such as cellulitis, lymphedema or systemic causes like cirrhosis, nephrotic syndrome or generalized edema. Soft Tissue Ultrasound 07/20/25 19:10 Impression: 1: Area of superficial venous thrombosis corresponds to the area of left arm swelling. Chest X-Ray 07/22/25 17:19 Impression: 1: Developing left basilar airspace disease, consistent with pneumonia. Labs Labs: Laboratory Tests 07/29/25 05:26 07/29/25 05:26 Calcium 9.3 Phosphorus 5.4 H Magnesium 2.4 H
[2025-07-29] MEDS: EPOETIN ALFA-EPBX 20,000 UNITS/ML VIAL 20000 UNITS IV PUSH (11:01)
[2025-07-29] MEDS: CALCIUM ACETATE 667 MG TABLET 2001 MG PO ×2 (12:40→16:43)
[2025-07-29] MEDS: APIXABAN 2.5 MG TABLET PO ×2 (12:41→20:37)
[2025-07-29] MEDS: AMIODARONE HCL 200 MG TABLET PO (12:41)
[2025-07-29] MEDS: LINEZOLID 600 MG TABLET PO (12:41)
[2025-07-29] MEDS: MEROPENEM 500 MG in SODIUM CHLORIDE 0.9% IV 100 ML 200 ML IVPB (13:54)
[2025-07-29] MEDS: SODIUM CHLORIDE 0.9% IV 250 ML 10 ML (13:56)
[2025-07-29] MEDS: MICAFUNGIN SODIUM 100 MG in SODIUM CHLORIDE 0.9% IV 100 ML IVPB (14:26)
[2025-07-29] MEDS: DAPTOMYCIN IVPB (15:50)
[2025-07-29] MEDS: SODIUM CHLORIDE 0.9% IVPB (15:50)
--- NOTE | 2025-07-29 18:39 | P.PNIM_ITS ---
Progress Note: A&P Assessment and Plan (1) Actinic keratosis: Code(s): L57.0 - Actinic keratosis Status: Acute (2) Acute kidney injury: Code(s): N17.9 - Acute kidney failure, unspecified Status: Acute (3) Cellulitis of scrotum: Code(s): N49.2 - Inflammatory disorders of scrotum Status: Acute (4) Rhabdomyolysis: Qualifiers: Rhabdomyolysis type: non-traumatic Qualified Code(s): M62.82 - Rhabdomyolysis Code(s): M62.82 - Rhabdomyolysis Status: Acute Plan Continue dialysis p.r.n. per Nephrology, making about 100 cc/hour urine output. Has 1+ pitting edema diffusely. tunneled dialysis catheter placed. Had dialysis on 07/27/2025, 07/29/2025, tolerating. Continue to follow with Nephrology. On PhosLo. Leukocytosis stable at 17, previously he had leukocytosis at 20 K for 2 days before step-down. Continue to follow. Now on daptomycin per Infectious Disease customer support consultant. Continue meropenem. Micafungin. Miconazole cream. Linezolid discontinued. Repeat scrotum culture on 07/29/2025. 07/20/2025 no growth from scrotum culture. 07/14/2025 blood cultures, no growth, final. Continue to monitor transaminitis. Patient wishes to be full code. Saline lock IV. Correa placed on 07/26/2025. Continue apixaban 2.5 mg p.o. b.i.d.. Disposition pending. Subjective Date/time seen: 07/29/25 18:39 Interval history: No major acute overnight events. Patient tolerated dialysis today. As he has every day, no complaints. Denies fever/chills/shortness of breath/cough/pain. He sits up in bed while eating and is joyful. Review of Systems Review of Systems: All systems reviewed & are unremarkable except as noted in HPI and below (Subjective) Exam Const: General: comfortable and no acute distress Other: Obese. A&O x3 HENMT: Mouth: Yes moist mucous membranes Eyes: Pupils: Equal, round and reactive pupils present Neck: Neck: supple Resp: Effort & Inspection: normal respiratory effort Auscultation: clear to auscultation bilaterally Cardio: Rate: regular rate GI: Inspection: non-distended GI Palp: Yes Soft to palpation : Other: Macerated areas are now purulent free. Slight erythema Extrem: Other: 1+ pitting edema of the bilateral lower extremities and upper extremities. Multiple actinic keratosis Objective Data Vital Signs Vital Signs: Vital Signs - 24 hr 07/28/25 19:35 07/28/25 20:00 07/28/25 20:00 Temperature Pulse Rate 78 78 Respiratory Rate 20 Blood Pressure Pulse Oximetry 94 91 Oxygen Delivery Room Air Room Air Fraction of Inspired Oxygen 21 07/28/25 20:03 07/29/25 00:00 07/29/25 04:02 Temperature 97.5 F L 97 F L Pulse Rate 74 92 78 Respiratory Rate 20 20 Blood Pressure 126/54 L 122/49 L Pulse Oximetry 94 91 Oxygen Delivery Fraction of Inspired Oxygen 07/29/25 07:47 07/29/25 08:00 07/29/25 08:00 Temperature 98.1 F Pulse Rate 74 71 70 Respiratory Rate 18 Blood Pressure 125/68 119/87 Pulse Oximetry 94 Oxygen Delivery Fraction of Inspired Oxygen 07/29/25 08:15 07/29/25 08:30 07/29/25 08:45 Temperature Pulse Rate 71 69 69 Respiratory Rate Blood Pressure 135/75 115/68 101/65 Pulse Oximetry Oxygen Delivery Fraction of Inspired Oxygen 07/29/25 09:00 07/29/25 09:15 07/29/25 09:30 Temperature Pulse Rate 71 71 74 Respiratory Rate Blood Pressure 103/69 101/61 129/69 Pulse Oximetry Oxygen Delivery Fraction of Inspired Oxygen 07/29/25 09:45 07/29/25 10:00 07/29/25 10:15 Temperature Pulse Rate 71 71 76 Respiratory Rate Blood Pressure 99/71 L 107/72 110/73 Pulse Oximetry Oxygen Delivery Fraction of Inspired Oxygen 07/29/25 10:30 07/29/25 10:45 07/29/25 11:00 Temperature Pulse Rate 71 70 71 Respiratory Rate Blood Pressure 128/67 130/68 130/71 Pulse Oximetry Oxygen Delivery Fraction of Inspired Oxygen 07/29/25 11:15 07/29/25 11:30 07/29/25 11:45 Temperature Pulse Rate 74 71 69 Respiratory Rate Blood Pressure 143/79 H 141/71 H 133/72 Pulse Oximetry Oxygen Delivery Fraction of Inspired Oxygen 07/29/25 12:00 07/29/25 12:01 07/29/25 12:10 Temperature 97.7 F Pulse Rate 75 75 78 Respiratory Rate 20 Blood Pressure 143/78 H 128/76 Pulse Oximetry 96 Oxygen Delivery Fraction of Inspired Oxygen 07/29/25 12:40 07/29/25 12:41 07/29/25 13:24 Temperature 97.2 F L Pulse Rate 80 80 80 Respiratory Rate 18 Blood Pressure 112/36 L Pulse Oximetry 93 Oxygen Delivery Fraction of Inspired Oxygen 07/29/25 16:00 07/29/25 16:42 Temperature Pulse Rate 75 70 Respiratory Rate Blood Pressure Pulse Oximetry Oxygen Delivery Fraction of Inspired Oxygen Intake/Output Intake/Output: Intake & Output 07/26/25 07/27/25 07/28/25 07/29/25 23:59 23:59 23:59 23:59 Intake Total 2100 2170 1360 1350 Output Total 2975 50 3725 Balance 2100 -805 1310 -7432 Meds/Results Medications: Active Medications Generic Name Dose Route Start Last Admin Trade Name Freq PRN Reason Stop Dose Admin Acetaminophen 1,000 mg 07/16/25 09:58 07/25/25 13:58 Acetaminophen 500 Mg Tablet PO 1,000 mg Q6H PRN Administration Fever Acetaminophen 500 mg 07/19/25 14:13 07/23/25 15:38 Acetaminophen 500 Mg Tablet PO 500 mg Q6H PRN Administration Pain Rated 1-3 Albuterol/Ipratropium 3 ml 07/17/25 20:40 07/20/25 00:58 Ipratropium 0.5 Mg/Albuterol Sulfate 2.5 Mg Ampul.Neb 3 Ml INHALATION 3 ml Q6HRT PRN Administration wheezing Alteplase, Recombinant 2 mg 07/28/25 23:16 07/28/25 23:41 Alteplase 2 Mg Vial (Cathflo) IV PUSH 2 mg ONCE PRN Administration Line Occlusion Amiodarone HCl 200 mg 07/15/25 02:30 07/29/25 12:41 Amiodarone Hcl 200 Mg Tablet PO 200 mg DAILY SALMA Administration Apixaban 2.5 mg 07/26/25 21:00 07/29/25 12:41 Apixaban 2.5 Mg Tablet PO 2.5 mg Q12HR SALMA Administration Bisacodyl 5 mg 07/22/25 13:35 07/29/25 12:39 Bisacodyl 5 Mg Tablet Ec PO Not Given QAM SALMA Calcium Acetate 2,001 mg 07/24/25 12:00 07/29/25 16:43 Calcium Acetate 667 Mg Tablet PO 2,001 mg TIDWM SALMA Administration Carvedilol 12.5 mg 07/15/25 09:00 07/29/25 16:42 Carvedilol 12.5 Mg Tablet PO 12.5 mg BID SALMA Administration Dextrose 12.5 gm 07/15/25 01:20 Dextrose 50% 25 Gm/50 Ml Syringe IV PUSH PRN PRN Hypoglycemia Protocol Epoetin Sd-epbx 20,000 units 07/25/25 09:00 07/29/25 11:01 Epoetin Sd-Epbx 20,000 Units/Ml Vial IV PUSH 20,000 units MOWEFR@09 SALMA Administration Glucagon 1 mg 07/15/25 01:20 Glucagon For Inj 1 Mg Vial IM PRN PRN Hypoglycemia Protocol Glucose 15 gm 07/15/25 01:20 Glucose Oral Gel 15 Gm Of Glucse In 37.5 Gm Tube PO PRN PRN Hypoglycemia Protocol Dextrose 1,000 mls @ 100 mls/hr 07/15/25 01:20 Dextrose 5% 1,000 Ml IVPB PRN PRN Hypoglycemia Protocol Albumin Human 50 mls @ 999 mls/hr 07/15/25 15:32 Albutein IVPB 08/14/25 15:31 Q10M PRN HYPOTENSION Micafungin Sodium 100 mg/ 100 mls @ 100 mls/hr 07/26/25 15:00 07/29/25 15:26 Sodium Chloride IVPB 07/30/25 15:59 Infused DAILY@1500 SALMA Infusion Daptomycin 800 mg/ Sodium 50 mls @ 100 mls/hr 07/29/25 15:00 07/29/25 16:20 Chloride IVPB Infused Q48H SALMA Infusion Meropenem 500 mg/ Sodium 100 mls @ 200 mls/hr 07/29/25 14:00 07/29/25 14:24 Chloride IVPB Infused Q24H SALMA Infusion Insulin Aspart 3 - 6 units 07/15/25 08:00 07/29/25 17:02 Insulin Aspart (*Bkc) 100 Units/Ml SUB-Q Not Given TIDWM [facility] Protocol Insulin Aspart 1 - 3 units 07/15/25 21:00 07/28/25 21:47 Insulin Aspart (*Bkc) 100 Units/Ml SUB-Q Not Given HS [facility] Protocol Magnesium Hydroxide 30 ml 07/16/25 08:39 Magnesium Hydroxide Susp 30 Ml Udc PO DAILY PRN Constipation Miconazole Nitrate 1 applic 07/26/25 14:00 07/29/25 13:04 Miconazole Nitrate 2% Cream 30 Gm Tube TOPICAL 1 applic Q8HR SALMA Administration Miscellaneous Information 1 each 07/28/25 00:01 07/29/25 09:47 Please Renew Hydromorphones And Oxycodone. Per [employer] Procedure, It Will Discontinue If XX 08/27/25 00:00 Not Given CLARIFY SALMA Naloxone HCl 0.1 mg 07/19/25 14:13 Naloxone Hcl 0.4 Mg/Ml Vial IV PUSH Q2M PRN Opiate Reversal Oxycodone HCl 2.5 mg 07/19/25 14:13 07/21/25 21:03 Oxycodone Hcl (*Crx) 2.5 Mg Tab Ir PO 2.5 mg Q4H PRN Administration Pain Rated 4-6 Oxycodone HCl 5 mg 07/19/25 14:13 07/29/25 16:43 Oxycodone Hcl (*Crx) 5 Mg Tab Ir PO 5 mg Q4H PRN Administration Pain Rated 7-10 Polyethylene Glycol 17 gm 07/16/25 09:00 07/29/25 12:39 Polyethylene Glycol 3350 17 Gm Powd.Pack PO Not Given QAM SALMA Sodium Chloride 10 ml 07/19/25 22:00 07/29/25 13:04 Central Line Flush IV PUSH 10 ml Q8HR SALMA Administration Sodium Chloride 10 ml 07/19/25 17:03 07/24/25 00:32 Central Line Flush IV PUSH 10 ml PRN PRN Administration with TPN bag changes Sodium Chloride 20 ml 07/19/25 17:03 07/29/25 05:32 Central Line Flush IV PUSH 20 ml PRN PRN Administration after blood draws Radiology Results: ITS Impressions Cervical Spine CT 07/15/25 07:00 IMPRESSION: 1. No acute abnormality of the cervical spine. 2: Severe cervical spondylosis. Head CT 07/15/25 07:03 IMPRESSION: 1. No acute intracranial abnormality. Shoulder X-Ray 07/15/25 07:39 Impression: 1: No acute fracture. Wrist X-Ray 07/15/25 07:40 Impression: 1: No acute fracture. Elbow X-Ray 07/15/25 07:41 Impression: 1: No acute fracture. Renal Ultrasound 07/15/25 13:09 Impression: 1: Unremarkable renal ultrasound. No stones, masses or hydronephrosis. Central Venous Line 07/19/25 13:50 IMPRESSION: Fluoroscopy used during portacatheter placement. Scrotum Ultrasound 07/20/25 19:05 IMPRESSION: 1. Diffuse scrotal wall thickening. Consider an infectious/inflammatory process such as cellulitis, lymphedema or systemic causes like cirrhosis, nephrotic syndrome or generalized edema. Soft Tissue Ultrasound 07/20/25 19:10 Impression: 1: Area of superficial venous thrombosis corresponds to the area of left arm swelling. Chest X-Ray 07/22/25 17:19 Impression: 1: Developing left basilar airspace disease, consistent with pneumonia. Labs Labs: Laboratory Results - last 24 hr 07/28/25 07/29/25 07/29/25 20:08 05:26 12:42 WBC 17.0 H RBC 2.67 L Hgb 8.2 L Hct 26.9 L MCV 100.7 H MCH 30.7 MCHC 30.5 L RDW 14.9 H Plt Count 233 MPV 9.7 Immature Gran % (Auto) 2.9 H Neut % (Auto) 81.8 H Lymph % (Auto) 5.7 L Sebastian % (Auto) 7.2 Eos % (Auto) 1.9 Baso % (Auto) 0.5 Lymph # (Auto) 0.97 Sebastian # (Auto) 1.2 H Eos # (Auto) 0.3 Baso # (Auto) 0.1 Abs Immat Gran (auto) 0.49 H Absolute Neuts (auto) 13.9 H Absolute Nucleated RBC 0.000 Nucleated RBC % 0.0 Sodium 127 L Potassium 4.6 Chloride 94 L Carbon Dioxide 29 Anion Gap 4 BUN 75 H D Creatinine 4.91 H Estim Creat Clear Calc 24 Estimated GFR 12 L Glucose 138 H POC Capillary Glucose 158 H 114 H Calcium 9.3 Phosphorus 5.4 H Magnesium 2.4 H 07/29/25 16:59 WBC RBC Hgb Hct MCV MCH MCHC RDW Plt Count MPV Immature Gran % (Auto) Neut % (Auto) Lymph % (Auto) Sebastian % (Auto) Eos % (Auto) Baso % (Auto) Lymph # (Auto) Sebastian # (Auto) Eos # (Auto) Baso # (Auto) Abs Immat Gran (auto) Absolute Neuts (auto) Absolute Nucleated RBC Nucleated RBC % Sodium Potassium Chloride Carbon Dioxide Anion Gap BUN Creatinine Estim Creat Clear Calc Estimated GFR Glucose POC Capillary Glucose 157 H Calcium Phosphorus Magnesium
--- NOTE | 2025-07-29 18:46 | PM.IMPN ---
Progress Note: A&P Assessment and Plan (1) Actinic keratosis: Code(s): L57.0 - Actinic keratosis Status: Acute (2) Acute kidney injury: Code(s): N17.9 - Acute kidney failure, unspecified Status: Acute (3) Cellulitis of scrotum: Code(s): N49.2 - Inflammatory disorders of scrotum Status: Acute (4) Rhabdomyolysis: Qualifiers: Rhabdomyolysis type: non-traumatic Qualified Code(s): M62.82 - Rhabdomyolysis Code(s): M62.82 - Rhabdomyolysis Status: Acute Plan Continue dialysis p.r.n. per Nephrology, disposition unknown and pending. He is euvolemic. Tunneled dialysis catheter placed. Had dialysis on 07/27/2025. Continue to follow with Nephrology. Leukocytosis improved. Continue current antibiotic regimen. Follow ID recommendations. Diabetes: Continue Accu-Cheks On 07/26/2025 began apixaban at lower dose 2.[address] in place of Xarelto due to kidney dysfunction. Was previously on hold due to anemia. Continue to monitor transaminitis. Patient wishes to be full code. Saline lock IV. Correa placed on 07/26/2025. Subjective Date/time seen: 07/30/2025 at 3:00 p.m. Interval history: No major acute overnight events. Patient has no complaints. Review of Systems Review of Systems: All systems reviewed & are unremarkable except as noted in HPI and below (Subjective) Exam Const: General: comfortable and no acute distress Other: Obese. A&O x3 HENMT: Mouth: Yes moist mucous membranes Eyes: Pupils: Equal, round and reactive pupils present Neck: Neck: supple Resp: Effort & Inspection: normal respiratory effort Auscultation: clear to auscultation bilaterally Cardio: Rate: regular rate GI: Inspection: non-distended GI Palp: Yes Soft to palpation : Other: No more purulence. Erythema improved Extrem: General: edema Objective Data Vital Signs Vital Signs: Vital Signs - 24 hr 07/28/25 19:35 07/28/25 20:00 07/28/25 20:00 Temperature Pulse Rate 78 78 Respiratory Rate 20 Blood Pressure Pulse Oximetry 94 91 Oxygen Delivery Room Air Room Air Fraction of Inspired Oxygen 21 07/28/25 20:03 07/29/25 00:00 07/29/25 04:02 Temperature 97.5 F L 97 F L Pulse Rate 74 92 78 Respiratory Rate 20 20 Blood Pressure 126/54 L 122/49 L Pulse Oximetry 94 91 Oxygen Delivery Fraction of Inspired Oxygen 07/29/25 07:47 07/29/25 08:00 07/29/25 08:00 Temperature 98.1 F Pulse Rate 74 71 70 Respiratory Rate 18 Blood Pressure 125/68 119/87 Pulse Oximetry 94 Oxygen Delivery Fraction of Inspired Oxygen 07/29/25 08:15 07/29/25 08:30 07/29/25 08:45 Temperature Pulse Rate 71 69 69 Respiratory Rate Blood Pressure 135/75 115/68 101/65 Pulse Oximetry Oxygen Delivery Fraction of Inspired Oxygen 07/29/25 09:00 07/29/25 09:15 07/29/25 09:30 Temperature Pulse Rate 71 71 74 Respiratory Rate Blood Pressure 103/69 101/61 129/69 Pulse Oximetry Oxygen Delivery Fraction of Inspired Oxygen 07/29/25 09:45 07/29/25 10:00 07/29/25 10:15 Temperature Pulse Rate 71 71 76 Respiratory Rate Blood Pressure 99/71 L 107/72 110/73 Pulse Oximetry Oxygen Delivery Fraction of Inspired Oxygen 07/29/25 10:30 07/29/25 10:45 07/29/25 11:00 Temperature Pulse Rate 71 70 71 Respiratory Rate Blood Pressure 128/67 130/68 130/71 Pulse Oximetry Oxygen Delivery Fraction of Inspired Oxygen 07/29/25 11:15 07/29/25 11:30 07/29/25 11:45 Temperature Pulse Rate 74 71 69 Respiratory Rate Blood Pressure 143/79 H 141/71 H 133/72 Pulse Oximetry Oxygen Delivery Fraction of Inspired Oxygen 07/29/25 12:00 07/29/25 12:01 07/29/25 12:10 Temperature 97.7 F Pulse Rate 75 75 78 Respiratory Rate 20 Blood Pressure 143/78 H 128/76 Pulse Oximetry 96 Oxygen Delivery Fraction of Inspired Oxygen 07/29/25 12:40 07/29/25 12:41 07/29/25 13:24 Temperature 97.2 F L Pulse Rate 80 80 80 Respiratory Rate 18 Blood Pressure 112/36 L Pulse Oximetry 93 Oxygen Delivery Fraction of Inspired Oxygen 07/29/25 16:00 07/29/25 16:42 Temperature Pulse Rate 75 70 Respiratory Rate Blood Pressure Pulse Oximetry Oxygen Delivery Fraction of Inspired Oxygen Intake/Output Intake/Output: Intake & Output 07/26/25 07/27/25 07/28/25 07/29/25 23:59 23:59 23:59 23:59 Intake Total 2100 2170 1360 1350 Output Total 2975 50 3725 Balance 2100 -805 3953 -2187 Meds/Results Medications: Active Medications Generic Name Dose Route Start Last Admin Trade Name Freq PRN Reason Stop Dose Admin Acetaminophen 1,000 mg 07/16/25 09:58 07/25/25 13:58 Acetaminophen 500 Mg Tablet PO 1,000 mg Q6H PRN Administration Fever Acetaminophen 500 mg 07/19/25 14:13 07/23/25 15:38 Acetaminophen 500 Mg Tablet PO 500 mg Q6H PRN Administration Pain Rated 1-3 Albuterol/Ipratropium 3 ml 07/17/25 20:40 07/20/25 00:58 Ipratropium 0.5 Mg/Albuterol Sulfate 2.5 Mg Ampul.Neb 3 Ml INHALATION 3 ml Q6HRT PRN Administration wheezing Alteplase, Recombinant 2 mg 07/28/25 23:16 07/28/25 23:41 Alteplase 2 Mg Vial (Cathflo) IV PUSH 2 mg ONCE PRN Administration Line Occlusion Amiodarone HCl 200 mg 07/15/25 02:30 07/29/25 12:41 Amiodarone Hcl 200 Mg Tablet PO 200 mg DAILY SALMA Administration Apixaban 2.5 mg 07/26/25 21:00 07/29/25 12:41 Apixaban 2.5 Mg Tablet PO 2.5 mg Q12HR SALMA Administration Bisacodyl 5 mg 07/22/25 13:35 07/29/25 12:39 Bisacodyl 5 Mg Tablet Ec PO Not Given QAM SALMA Calcium Acetate 2,001 mg 07/24/25 12:00 07/29/25 16:43 Calcium Acetate 667 Mg Tablet PO 2,001 mg TIDWM SALMA Administration Carvedilol 12.5 mg 07/15/25 09:00 07/29/25 16:42 Carvedilol 12.5 Mg Tablet PO 12.5 mg BID SALMA Administration Dextrose 12.5 gm 07/15/25 01:20 Dextrose 50% 25 Gm/50 Ml Syringe IV PUSH PRN PRN Hypoglycemia Protocol Epoetin Sd-epbx 20,000 units 07/25/25 09:00 07/29/25 11:01 Epoetin Sd-Epbx 20,000 Units/Ml Vial IV PUSH 20,000 units MOWEFR@09 SALMA Administration Glucagon 1 mg 07/15/25 01:20 Glucagon For Inj 1 Mg Vial IM PRN PRN Hypoglycemia Protocol Glucose 15 gm 07/15/25 01:20 Glucose Oral Gel 15 Gm Of Glucse In 37.5 Gm Tube PO PRN PRN Hypoglycemia Protocol Dextrose 1,000 mls @ 100 mls/hr 07/15/25 01:20 Dextrose 5% 1,000 Ml IVPB PRN PRN Hypoglycemia Protocol Albumin Human 50 mls @ 999 mls/hr 07/15/25 15:32 Albutein IVPB 08/14/25 15:31 Q10M PRN HYPOTENSION Micafungin Sodium 100 mg/ 100 mls @ 100 mls/hr 07/26/25 15:00 07/29/25 15:26 Sodium Chloride IVPB 07/30/25 15:59 Infused DAILY@1500 SALMA Infusion Daptomycin 800 mg/ Sodium 50 mls @ 100 mls/hr 07/29/25 15:00 07/29/25 16:20 Chloride IVPB Infused Q48H SALMA Infusion Meropenem 500 mg/ Sodium 100 mls @ 200 mls/hr 07/29/25 14:00 07/29/25 14:24 Chloride IVPB Infused Q24H SALMA Infusion Insulin Aspart 3 - 6 units 07/15/25 08:00 07/29/25 17:02 Insulin Aspart (*Bkc) 100 Units/Ml SUB-Q Not Given TIDWM [facility] Protocol Insulin Aspart 1 - 3 units 07/15/25 21:00 07/28/25 21:47 Insulin Aspart (*Bkc) 100 Units/Ml SUB-Q Not Given HS [facility] Protocol Magnesium Hydroxide 30 ml 07/16/25 08:39 Magnesium Hydroxide Susp 30 Ml Udc PO DAILY PRN Constipation Miconazole Nitrate 1 applic 07/26/25 14:00 07/29/25 13:04 Miconazole Nitrate 2% Cream 30 Gm Tube TOPICAL 1 applic Q8HR SALMA Administration Miscellaneous Information 1 each 07/28/25 00:01 07/29/25 09:47 Please Renew Hydromorphones And Oxycodone. Per [employer] Procedure, It Will Discontinue If XX 08/27/25 00:00 Not Given CLARIFY SALMA Naloxone HCl 0.1 mg 07/19/25 14:13 Naloxone Hcl 0.4 Mg/Ml Vial IV PUSH Q2M PRN Opiate Reversal Oxycodone HCl 2.5 mg 07/19/25 14:13 07/21/25 21:03 Oxycodone Hcl (*Crx) 2.5 Mg Tab Ir PO 2.5 mg Q4H PRN Administration Pain Rated 4-6 Oxycodone HCl 5 mg 07/19/25 14:13 07/29/25 16:43 Oxycodone Hcl (*Crx) 5 Mg Tab Ir PO 5 mg Q4H PRN Administration Pain Rated 7-10 Polyethylene Glycol 17 gm 07/16/25 09:00 07/29/25 12:39 Polyethylene Glycol 3350 17 Gm Powd.Pack PO Not Given QAM SALMA Sodium Chloride 10 ml 07/19/25 22:00 07/29/25 13:04 Central Line Flush IV PUSH 10 ml Q8HR SALMA Administration Sodium Chloride 10 ml 07/19/25 17:03 07/24/25 00:32 Central Line Flush IV PUSH 10 ml PRN PRN Administration with TPN bag changes Sodium Chloride 20 ml 07/19/25 17:03 07/29/25 05:32 Central Line Flush IV PUSH 20 ml PRN PRN Administration after blood draws Radiology Results: ITS Impressions Cervical Spine CT 07/15/25 07:00 IMPRESSION: 1. No acute abnormality of the cervical spine. 2: Severe cervical spondylosis. Head CT 07/15/25 07:03 IMPRESSION: 1. No acute intracranial abnormality. Shoulder X-Ray 07/15/25 07:39 Impression: 1: No acute fracture. Wrist X-Ray 07/15/25 07:40 Impression: 1: No acute fracture. Elbow X-Ray 07/15/25 07:41 Impression: 1: No acute fracture. Renal Ultrasound 07/15/25 13:09 Impression: 1: Unremarkable renal ultrasound. No stones, masses or hydronephrosis. Central Venous Line 07/19/25 13:50 IMPRESSION: Fluoroscopy used during portacatheter placement. Scrotum Ultrasound 07/20/25 19:05 IMPRESSION: 1. Diffuse scrotal wall thickening. Consider an infectious/inflammatory process such as cellulitis, lymphedema or systemic causes like cirrhosis, nephrotic syndrome or generalized edema. Soft Tissue Ultrasound 07/20/25 19:10 Impression: 1: Area of superficial venous thrombosis corresponds to the area of left arm swelling. Chest X-Ray 07/22/25 17:19 Impression: 1: Developing left basilar airspace disease, consistent with pneumonia. Labs Labs: Laboratory Results - last 24 hr 07/28/25 07/29/25 07/29/25 20:08 05:26 12:42 WBC 17.0 H RBC 2.67 L Hgb 8.2 L Hct 26.9 L MCV 100.7 H MCH 30.7 MCHC 30.5 L RDW 14.9 H Plt Count 233 MPV 9.7 Immature Gran % (Auto) 2.9 H Neut % (Auto) 81.8 H Lymph % (Auto) 5.7 L Delta % (Auto) 7.2 Eos % (Auto) 1.9 Baso % (Auto) 0.5 Lymph # (Auto) 0.97 Delta # (Auto) 1.2 H Eos # (Auto) 0.3 Baso # (Auto) 0.1 Abs Immat Gran (auto) 0.49 H Absolute Neuts (auto) 13.9 H Absolute Nucleated RBC 0.000 Nucleated RBC % 0.0 Sodium 127 L Potassium 4.6 Chloride 94 L Carbon Dioxide 29 Anion Gap 4 BUN 75 H D Creatinine 4.91 H Estim Creat Clear Calc 24 Estimated GFR 12 L Glucose 138 H POC Capillary Glucose 158 H 114 H Calcium 9.3 Phosphorus 5.4 H Magnesium 2.4 H 07/29/25 16:59 WBC RBC Hgb Hct MCV MCH MCHC RDW Plt Count MPV Immature Gran % (Auto) Neut % (Auto) Lymph % (Auto) Delta % (Auto) Eos % (Auto) Baso % (Auto) Lymph # (Auto) Delta # (Auto) Eos # (Auto) Baso # (Auto) Abs Immat Gran (auto) Absolute Neuts (auto) Absolute Nucleated RBC Nucleated RBC % Sodium Potassium Chloride Carbon Dioxide Anion Gap BUN Creatinine Estim Creat Clear Calc Estimated GFR Glucose POC Capillary Glucose 157 H Calcium Phosphorus Magnesium
--- NOTE | 2025-07-29 19:04 | WPDINFPN2 ---
Progress Note: A&P Assessment and Plan (1) Leukocytosis: Qualifiers: Leukocytosis type: unspecified Qualified Code(s): D72.829 - Elevated white blood cell count, unspecified Code(s): D72.829 - Elevated white blood cell count, unspecified Status: Acute (2) Cellulitis of scrotum: Code(s): N49.2 - Inflammatory disorders of scrotum Status: Acute (3) Hematoma of right upper extremity: Code(s): S40.021A - Contusion of right upper arm, initial encounter Status: Acute (4) Anemia: Code(s): D64.9 - Anemia, unspecified Status: Acute (5) Rhabdomyolysis: Qualifiers: Rhabdomyolysis type: non-traumatic Qualified Code(s): M62.82 - Rhabdomyolysis Code(s): M62.82 - Rhabdomyolysis Status: Acute (6) Acute kidney injury: Code(s): N17.9 - Acute kidney failure, unspecified Status: Acute (7) Transaminitis: Code(s): R74.01 - Elevation of levels of liver transaminase levels Status: Acute (8) Chronic hyponatremia: Code(s): E87.1 - Hypo-osmolality and hyponatremia Status: Acute (9) Hyperkalemia: Code(s): E87.5 - Hyperkalemia Status: Acute (10) Constipation: Code(s): K59.00 - Constipation, unspecified Status: Acute Plan ASSESSMENT: 1. scrotal cellulitis--cx unrevealing--still present despite current abx 2. morbid obesity 3. KAITLIN 4. rhabdomyolysis 5. leukocytosis--multifactorial; WBC count down today 6. RUE hematoma 7. ?pneumonia RECOMMENDATIONS tomorrow is last day of micafungin change linezolid, zosyn to meropenem and daptomycin miconazole cream to scrotal region blood cxs 07/14 neg and final re-culrure purulent drainage from scrotum today d/w pharmacist Pt was seen via video telehealth consultation with the assistance of staff, chart, data and patient independently reviewed. Patient was located at [facility] while I was located in my [place] office. Received verbal consent from patient. Subjective Date/time seen: 07/29/25 19:05 Interval history: Just had HD. No itching Exam Narrative: NAD, non-toxic, on room air. scrotum with purulence from wound; still erytematous and edematous Objective Data Vital Signs Vital Signs: Vital Signs - 24 hr 07/28/25 19:35 07/28/25 20:00 07/28/25 20:00 Temperature Pulse Rate 78 78 Respiratory Rate 20 Blood Pressure Pulse Oximetry 94 91 Oxygen Delivery Room Air Room Air Fraction of Inspired Oxygen 21 07/28/25 20:03 07/29/25 00:00 07/29/25 04:02 Temperature 97.5 F L 97 F L Pulse Rate 74 92 78 Respiratory Rate 20 20 Blood Pressure 126/54 L 122/49 L Pulse Oximetry 94 91 Oxygen Delivery Fraction of Inspired Oxygen 07/29/25 07:47 07/29/25 08:00 07/29/25 08:00 Temperature 98.1 F Pulse Rate 74 71 70 Respiratory Rate 18 Blood Pressure 125/68 119/87 Pulse Oximetry 94 Oxygen Delivery Fraction of Inspired Oxygen 07/29/25 08:15 07/29/25 08:30 07/29/25 08:45 Temperature Pulse Rate 71 69 69 Respiratory Rate Blood Pressure 135/75 115/68 101/65 Pulse Oximetry Oxygen Delivery Fraction of Inspired Oxygen 07/29/25 09:00 07/29/25 09:15 07/29/25 09:30 Temperature Pulse Rate 71 71 74 Respiratory Rate Blood Pressure 103/69 101/61 129/69 Pulse Oximetry Oxygen Delivery Fraction of Inspired Oxygen 07/29/25 09:45 07/29/25 10:00 07/29/25 10:15 Temperature Pulse Rate 71 71 76 Respiratory Rate Blood Pressure 99/71 L 107/72 110/73 Pulse Oximetry Oxygen Delivery Fraction of Inspired Oxygen 07/29/25 10:30 07/29/25 10:45 07/29/25 11:00 Temperature Pulse Rate 71 70 71 Respiratory Rate Blood Pressure 128/67 130/68 130/71 Pulse Oximetry Oxygen Delivery Fraction of Inspired Oxygen 07/29/25 11:15 07/29/25 11:30 07/29/25 11:45 Temperature Pulse Rate 74 71 69 Respiratory Rate Blood Pressure 143/79 H 141/71 H 133/72 Pulse Oximetry Oxygen Delivery Fraction of Inspired Oxygen 07/29/25 12:00 07/29/25 12:01 07/29/25 12:10 Temperature 97.7 F Pulse Rate 75 75 78 Respiratory Rate 20 Blood Pressure 143/78 H 128/76 Pulse Oximetry 96 Oxygen Delivery Fraction of Inspired Oxygen 07/29/25 12:40 07/29/25 12:41 07/29/25 13:24 Temperature 97.2 F L Pulse Rate 80 80 80 Respiratory Rate 18 Blood Pressure 112/36 L Pulse Oximetry 93 Oxygen Delivery Fraction of Inspired Oxygen 07/29/25 16:00 07/29/25 16:42 Temperature Pulse Rate 75 70 Respiratory Rate Blood Pressure Pulse Oximetry Oxygen Delivery Fraction of Inspired Oxygen Intake/Output Intake/Output: Intake & Output 07/26/25 07/27/25 07/28/25 07/29/25 23:59 23:59 23:59 23:59 Intake Total 2100 2170 1360 1350 Output Total 2975 50 3725 Balance 2100 805 5707 -0023 Meds/Results Medications: Active Medications Generic Name Dose Route Start Last Admin Trade Name Freq PRN Reason Stop Dose Admin Acetaminophen 1,000 mg 07/16/25 09:58 07/25/25 13:58 Acetaminophen 500 Mg Tablet PO 1,000 mg Q6H PRN Administration Fever Acetaminophen 500 mg 07/19/25 14:13 07/23/25 15:38 Acetaminophen 500 Mg Tablet PO 500 mg Q6H PRN Administration Pain Rated 1-3 Albuterol/Ipratropium 3 ml 07/17/25 20:40 07/20/25 00:58 Ipratropium 0.5 Mg/Albuterol Sulfate 2.5 Mg Ampul.Neb 3 Ml INHALATION 3 ml Q6HRT PRN Administration wheezing Alteplase, Recombinant 2 mg 07/28/25 23:16 07/28/25 23:41 Alteplase 2 Mg Vial (Cathflo) IV PUSH 2 mg ONCE PRN Administration Line Occlusion Amiodarone HCl 200 mg 07/15/25 02:30 07/29/25 12:41 Amiodarone Hcl 200 Mg Tablet PO 200 mg DAILY SALMA Administration Apixaban 2.5 mg 07/26/25 21:00 07/29/25 12:41 Apixaban 2.5 Mg Tablet PO 2.5 mg Q12HR SALMA Administration Bisacodyl 5 mg 07/22/25 13:35 07/29/25 12:39 Bisacodyl 5 Mg Tablet Ec PO Not Given QAM SALMA Calcium Acetate 2,001 mg 07/24/25 12:00 07/29/25 16:43 Calcium Acetate 667 Mg Tablet PO 2,001 mg TIDWM SALMA Administration Carvedilol 12.5 mg 07/15/25 09:00 07/29/25 16:42 Carvedilol 12.5 Mg Tablet PO 12.5 mg BID SALMA Administration Dextrose 12.5 gm 07/15/25 01:20 Dextrose 50% 25 Gm/50 Ml Syringe IV PUSH PRN PRN Hypoglycemia Protocol Epoetin Sd-epbx 20,000 units 07/25/25 09:00 07/29/25 11:01 Epoetin Sd-Epbx 20,000 Units/Ml Vial IV PUSH 20,000 units MOWEFR@09 SALMA Administration Glucagon 1 mg 07/15/25 01:20 Glucagon For Inj 1 Mg Vial IM PRN PRN Hypoglycemia Protocol Glucose 15 gm 07/15/25 01:20 Glucose Oral Gel 15 Gm Of Glucse In 37.5 Gm Tube PO PRN PRN Hypoglycemia Protocol Dextrose 1,000 mls @ 100 mls/hr 07/15/25 01:20 Dextrose 5% 1,000 Ml IVPB PRN PRN Hypoglycemia Protocol Albumin Human 50 mls @ 999 mls/hr 07/15/25 15:32 Albutein IVPB 08/14/25 15:31 Q10M PRN HYPOTENSION Micafungin Sodium 100 mg/ 100 mls @ 100 mls/hr 07/26/25 15:00 07/29/25 15:26 Sodium Chloride IVPB 07/30/25 15:59 Infused DAILY@1500 SALMA Infusion Daptomycin 800 mg/ Sodium 50 mls @ 100 mls/hr 07/29/25 15:00 07/29/25 16:20 Chloride IVPB Infused Q48H SALMA Infusion Meropenem 500 mg/ Sodium 100 mls @ 200 mls/hr 07/29/25 14:00 07/29/25 14:24 Chloride IVPB Infused Q24H SALMA Infusion Insulin Aspart 3 - 6 units 07/15/25 08:00 07/29/25 17:02 Insulin Aspart (*Bkc) 100 Units/Ml SUB-Q Not Given TIDWM [facility] Protocol Insulin Aspart 1 - 3 units 07/15/25 21:00 07/28/25 21:47 Insulin Aspart (*Bkc) 100 Units/Ml SUB-Q Not Given HS SALMA Protocol Magnesium Hydroxide 30 ml 07/16/25 08:39 Magnesium Hydroxide Susp 30 Ml Udc PO DAILY PRN Constipation Miconazole Nitrate 1 applic 07/26/25 14:00 07/29/25 13:04 Miconazole Nitrate 2% Cream 30 Gm Tube TOPICAL 1 applic Q8HR SALMA Administration Miscellaneous Information 1 each 07/28/25 00:01 07/29/25 09:47 Please Renew Hydromorphones And Oxycodone. Per [employer] Procedure, It Will Discontinue If XX 08/27/25 00:00 Not Given CLARIFY SALMA Naloxone HCl 0.1 mg 07/19/25 14:13 Naloxone Hcl 0.4 Mg/Ml Vial IV PUSH Q2M PRN Opiate Reversal Oxycodone HCl 2.5 mg 07/19/25 14:13 07/21/25 21:03 Oxycodone Hcl (*Crx) 2.5 Mg Tab Ir PO 2.5 mg Q4H PRN Administration Pain Rated 4-6 Oxycodone HCl 5 mg 07/19/25 14:13 07/29/25 16:43 Oxycodone Hcl (*Crx) 5 Mg Tab Ir PO 5 mg Q4H PRN Administration Pain Rated 7-10 Polyethylene Glycol 17 gm 07/16/25 09:00 07/29/25 12:39 Polyethylene Glycol 3350 17 Gm Powd.Pack PO Not Given QAM SALMA Sodium Chloride 10 ml 07/19/25 22:00 07/29/25 13:04 Central Line Flush IV PUSH 10 ml Q8HR SALMA Administration Sodium Chloride 10 ml 07/19/25 17:03 07/24/25 00:32 Central Line Flush IV PUSH 10 ml PRN PRN Administration with TPN bag changes Sodium Chloride 20 ml 07/19/25 17:03 07/29/25 05:32 Central Line Flush IV PUSH 20 ml PRN PRN Administration after blood draws Radiology Results: ITS Impressions Cervical Spine CT 07/15/25 07:00 IMPRESSION: 1. No acute abnormality of the cervical spine. 2: Severe cervical spondylosis. Head CT 07/15/25 07:03 IMPRESSION: 1. No acute intracranial abnormality. Shoulder X-Ray 07/15/25 07:39 Impression: 1: No acute fracture. Wrist X-Ray 07/15/25 07:40 Impression: 1: No acute fracture. Elbow X-Ray 07/15/25 07:41 Impression: 1: No acute fracture. Renal Ultrasound 07/15/25 13:09 Impression: 1: Unremarkable renal ultrasound. No stones, masses or hydronephrosis. Central Venous Line 07/19/25 13:50 IMPRESSION: Fluoroscopy used during portacatheter placement. Scrotum Ultrasound 07/20/25 19:05 IMPRESSION: 1. Diffuse scrotal wall thickening. Consider an infectious/inflammatory process such as cellulitis, lymphedema or systemic causes like cirrhosis, nephrotic syndrome or generalized edema. Soft Tissue Ultrasound 07/20/25 19:10 Impression: 1: Area of superficial venous thrombosis corresponds to the area of left arm swelling. Chest X-Ray 07/22/25 17:19 Impression: 1: Developing left basilar airspace disease, consistent with pneumonia. Labs Labs: Laboratory Results - last 24 hr 07/28/25 07/29/25 07/29/25 20:08 05:26 12:42 WBC 17.0 H RBC 2.67 L Hgb 8.2 L Hct 26.9 L MCV 100.7 H MCH 30.7 MCHC 30.5 L RDW 14.9 H Plt Count 233 MPV 9.7 Immature Gran % (Auto) 2.9 H Neut % (Auto) 81.8 H Lymph % (Auto) 5.7 L Mitchell % (Auto) 7.2 Eos % (Auto) 1.9 Baso % (Auto) 0.5 Lymph # (Auto) 0.97 Mitchell # (Auto) 1.2 H Eos # (Auto) 0.3 Baso # (Auto) 0.1 Abs Immat Gran (auto) 0.49 H Absolute Neuts (auto) 13.9 H Absolute Nucleated RBC 0.000 Nucleated RBC % 0.0 Sodium 127 L Potassium 4.6 Chloride 94 L Carbon Dioxide 29 Anion Gap 4 BUN 75 H D Creatinine 4.91 H Estim Creat Clear Calc 24 Estimated GFR 12 L Glucose 138 H POC Capillary Glucose 158 H 114 H Calcium 9.3 Phosphorus 5.4 H Magnesium 2.4 H 07/29/25 16:59 WBC RBC Hgb Hct MCV MCH MCHC RDW Plt Count MPV Immature Gran % (Auto) Neut % (Auto) Lymph % (Auto) Mitchell % (Auto) Eos % (Auto) Baso % (Auto) Lymph # (Auto) Mitchell # (Auto) Eos # (Auto) Baso # (Auto) Abs Immat Gran (auto) Absolute Neuts (auto) Absolute Nucleated RBC Nucleated RBC % Sodium Potassium Chloride Carbon Dioxide Anion Gap BUN Creatinine Estim Creat Clear Calc Estimated GFR Glucose POC Capillary Glucose 157 H Calcium Phosphorus Magnesium
[2025-07-30] VITALS (11 sets, daily range): BP systolic 112–136; BP diastolic 41–54; PULSE 70–79; RESP 18–20; TEMP 36.2–36.5; O2SAT 90–92
[2025-07-30] MEDS: CENTRAL LINE FLUSH 10 ML IV PUSH ×3 (05:20→22:21)
[2025-07-30] MEDS: CENTRAL LINE FLUSH 20 ML IV PUSH (05:21)
[2025-07-30] MEDS: MICONAZOLE NITRATE 2% CREAM 30 GM TUBE 1 APPLIC TOPICAL ×3 (05:23→22:22)
[2025-07-30 05:30] LABS: Hematocrit 26.9 % (42.0-52.0); Hemoglobin 8.1 g/dL (14.0-18.0); Immature Granulocyte Percent A 2.2 % (0-0.5); Lymphocytes Absolute Auto 1.05 K/mm3 (0.9-3.2); Mean Corpuscular HGB Conc 30.1 g/dl (32-36); Mean Corpuscular Hemoglobin 30.6 pg (26-34); Mean Corpuscular Volume 101.5 fl (80-100); Nucleated Red Blood Cells Absolute Auto 0.000 K/mm3 (0.0-0.012); Nucleated Red Blood Cells Perc 0.0 % (0.0-0.2); Platelet Count Result 223 k/mm3 (150-375); Red Blood Count 2.65 M/mm3 (4.6-6.20); White Blood Count 12.9 K/mm3 (4.5-10.0)
[2025-07-30 05:45] LABS: Albumin Level 2.7 g/dL (3.5-5.1); Anion Gap 5 mmol/L (4-12); Blood Urea Nitrogen 51 mg/dL (9-20); Calcium 9.2 mg/dL (8.4-10.2); Carbon Dioxide 28 mmol/L (22-30); Chloride 99 mmol/L (98-107); Estimated CRCL calculation 30 ml/min; Estimated Glomerular Filt Rate 15; Glucose 132 mg/dL (65-110); Potassium 4.2 mmol/L (3.4-5.0); Sodium 132 mmol/L (137-145)
[2025-07-30 06:19] LABS: Iron 41 ug/dL (49-181)
--- NOTE | 2025-07-30 06:22 | PC.NURSE ---
Unable to obtain pt's weight this morning due to bed malfunction. Bed was stating pt had gained >40 kg.
[2025-07-30 06:29] LABS: Percent Iron Saturation 16 % (20-50)
[2025-07-30 06:54] LABS: Vitamin B12 680.0 pg/mL (239-931)
[2025-07-30 07:01] LABS: Ferritin 170.00 ng/mL (11.1-264)
[2025-07-30] MEDS: CALCIUM ACETATE 667 MG TABLET 2001 MG PO ×3 (09:35→17:30)
[2025-07-30] MEDS: BISACODYL 5 MG TABLET EC PO (09:36)
[2025-07-30] MEDS: AMIODARONE HCL 200 MG TABLET PO (09:36)
[2025-07-30] MEDS: APIXABAN 2.5 MG TABLET PO ×2 (09:36→22:21)
--- NOTE | 2025-07-30 11:28 | P.PNNP_ITS ---
Progress Note: A&P Assessment and Plan (1) Acute kidney injury: Code(s): N17.9 - Acute kidney failure, unspecified Status: Acute Assessment and Plan: * acute kidney injury. * as noted by admission labs * progressively worsening as noted by trend of labs since hospitalization began * was also complicated by persistent hyperkalemia unresponsive to medical therapy and declining UOP * baseline creatinine normal: * 1.16mg/dL in October 2024 (by outpatient labs from PCP) * 1.30mg/dL in October 2022 ([facility]) * multifactorial etiology: * rhabdomyolysis * MANUEL-I use prior to admission * diuretic use (lasix + spironolactone) prior to admission * prerenal factors(?) * infection/early sepsis(?) * other(?) * evaluation to date noted: * prerenal urine electrolytes * urine eosinophils negative * CPK as already noted * mild proteinuria * renal ultrasound without obstruction * s/p tunneled HD catheter placement (on 07/19/25) * Recent CK levels are better. * Hemodynamically doing well. * Off Manuel inhibitors. * Infection seems to have settled down as he is afebrile and white cell count is improving; however still on meropenem, daptomycin, and micafungin * he had hemodialysis yesterday and did well. * Labs look okay and volume status looks okay today ( He is volume overloaded but less so than before, and he is not short of breath, off oxygen, and less swollen than before), so I do not think we need to do more dialysis today. * Urine output significantly up yesterday with 750cc. Will give a couple of doses of diuretics to see if we can stimulate urine output to help us with his volume status. (2) Hyperkalemia: Code(s): E87.5 - Hyperkalemia Status: Acute Assessment and Plan: * resolved (3) Rhabdomyolysis: Code(s): M62.82 - Rhabdomyolysis Status: Acute Assessment and Plan: * resolved * CK down to only 1400. Will check 1 tomorrow (4) Leukocytosis: Qualifiers: Leukocytosis type: unspecified Qualified Code(s): D72.829 - Elevated white blood cell count, unspecified Code(s): D72.829 - Elevated white blood cell count, unspecified Status: Acute Assessment and Plan: * slow improvement * initial concern was sepsis given associated lactic acidosis, tachycardia, tachypnea on admission * Infectious Disease following with recommendations noted * potential sources noted: * scrotal cellulitis * right arm hematoma * constipation * pneumonia * tinea cruris * elevated CPK * on antibiotics/antifungals as outlined * cultures negative so far * white cell count improving and afebrile (5) Anemia: Code(s): D64.9 - Anemia, unspecified Status: Acute Assessment and Plan: * due to previous IVF hydration, KAITLIN/ARF, and trauma/hematomas * Epogen with HD * check anemia studies * hemoglobin 8.1 today (6) Hyponatremia: Code(s): E87.1 - Hypo-osmolality and hyponatremia Status: Acute Assessment and Plan: * acute (on chronic?) * noted as far back as October 2022 * however, on PCP labs in October 2024, sodium was 138mmol/L * suspect due more related to KAITLIN/ARF and diminished urine output/anuria (dilutional) * TSH and cortisol okay * dialysis helping to correct to some degree. (7) Atrial fibrillation and flutter: Code(s): I48.91 - Unspecified atrial fibrillation; I48.92 - Unspecified atrial flutter Status: Chronic Assessment and Plan: * paroxysmal in nature * on amiodarone * on Eliquis (8) Transaminitis: Code(s): R74.01 - Elevation of levels of liver transaminase levels Status: Acute Assessment and Plan: * last ALT was closer to normal (9) Hypertension: Code(s): I10 - Essential (primary) hypertension Status: Chronic Assessment and Plan: * systolic 108-140 * running on the soft side at times, especially during dialysis (10) Diabetes: Code(s): E11.9 - Type 2 diabetes mellitus without complications Status: Chronic Assessment and Plan: * follow accu-cheks * glycemic control per hospitalist Will continue to follow. Subjective Date/time seen: 07/30/25 11:28 Interval history: patient is alert. Swelling is better. He made more urine yesterday Exam Narrative: General: elderly WD/WN male with a high body mass index in NAD Heart: normal S1 and S2; no rub Lungs: clear bilaterally Abdomen: soft, nontender, nondistended, positive bowel sounds Extremities: 1+ edema (upper and lower extremities) Skin: venous stasis changes over BLEs present; chronic actinic changes in UEs Objective Data Vital Signs Vital Signs: Vital Signs - 24 hr 07/29/25 11:30 07/29/25 11:45 07/29/25 12:00 Temperature Pulse Rate 71 69 75 Respiratory Rate Blood Pressure 141/71 H 133/72 Pulse Oximetry Oxygen Delivery 07/29/25 12:01 07/29/25 12:10 07/29/25 12:40 Temperature 97.7 F Pulse Rate 75 78 80 Respiratory Rate 20 Blood Pressure 143/78 H 128/76 Pulse Oximetry 96 Oxygen Delivery 07/29/25 12:41 07/29/25 13:24 07/29/25 16:00 Temperature 97.2 F L Pulse Rate 80 80 75 Respiratory Rate 18 Blood Pressure 112/36 L Pulse Oximetry 93 Oxygen Delivery 07/29/25 16:42 07/29/25 20:00 07/29/25 20:00 Temperature Pulse Rate 70 70 Respiratory Rate Blood Pressure Pulse Oximetry Oxygen Delivery Room Air 07/29/25 20:09 07/29/25 22:30 07/29/25 22:34 Temperature 97.8 F Pulse Rate 73 72 Respiratory Rate 20 Blood Pressure 108/48 L Pulse Oximetry 93 93 93 Oxygen Delivery Autopap Room Air 07/30/25 00:00 07/30/25 02:10 07/30/25 03:36 Temperature 97.7 F Pulse Rate 71 73 Respiratory Rate 20 Blood Pressure 112/48 L Pulse Oximetry 92 Oxygen Delivery Autopap 07/30/25 04:00 07/30/25 09:36 07/30/25 09:36 Temperature Pulse Rate 73 73 73 Respiratory Rate Blood Pressure Pulse Oximetry Oxygen Delivery Intake/Output Intake/Output: Intake & Output 07/27/25 07/28/25 07/29/25 07/30/25 23:59 23:59 23:59 23:59 Intake Total 2170 1360 1350 390 Output Total 2975 50 3725 100 Balance -805 1310 -6920 290 Meds/Results Medications: Active Medications Generic Name Dose Route Start Last Admin Trade Name Freq PRN Reason Stop Dose Admin Acetaminophen 1,000 mg 07/16/25 09:58 07/25/25 13:58 Acetaminophen 500 Mg Tablet PO 1,000 mg Q6H PRN Administration Fever Acetaminophen 500 mg 07/19/25 14:13 07/23/25 15:38 Acetaminophen 500 Mg Tablet PO 500 mg Q6H PRN Administration Pain Rated 1-3 Albuterol/Ipratropium 3 ml 07/17/25 20:40 07/20/25 00:58 Ipratropium 0.5 Mg/Albuterol Sulfate 2.5 Mg Ampul.Neb 3 Ml INHALATION 3 ml Q6HRT PRN Administration wheezing Alteplase, Recombinant 2 mg 07/28/25 23:16 07/28/25 23:41 Alteplase 2 Mg Vial (Cathflo) IV PUSH 2 mg ONCE PRN Administration Line Occlusion Amiodarone HCl 200 mg 07/15/25 02:30 07/30/25 09:36 Amiodarone Hcl 200 Mg Tablet PO 200 mg DAILY SALMA Administration Apixaban 2.5 mg 07/26/25 21:00 07/30/25 09:36 Apixaban 2.5 Mg Tablet PO 2.5 mg Q12HR SALMA Administration Bisacodyl 5 mg 07/22/25 13:35 07/30/25 09:36 Bisacodyl 5 Mg Tablet Ec PO 5 mg QAM SALMA Administration Calcium Acetate 2,001 mg 07/24/25 12:00 07/30/25 09:35 Calcium Acetate 667 Mg Tablet PO 2,001 mg TIDWM SALMA Administration Carvedilol 12.5 mg 07/15/25 09:00 07/30/25 09:36 Carvedilol 12.5 Mg Tablet PO 12.5 mg BID SALMA Administration Dextrose 12.5 gm 07/15/25 01:20 Dextrose 50% 25 Gm/50 Ml Syringe IV PUSH PRN PRN Hypoglycemia Protocol Epoetin Sd-epbx 20,000 units 07/25/25 09:00 07/29/25 11:01 Epoetin Sd-Epbx 20,000 Units/Ml Vial IV PUSH 20,000 units MOWEFR@09 SALMA Administration Glucagon 1 mg 07/15/25 01:20 Glucagon For Inj 1 Mg Vial IM PRN PRN Hypoglycemia Protocol Glucose 15 gm 07/15/25 01:20 Glucose Oral Gel 15 Gm Of Glucse In 37.5 Gm Tube PO PRN PRN Hypoglycemia Protocol Dextrose 1,000 mls @ 100 mls/hr 07/15/25 01:20 Dextrose 5% 1,000 Ml IVPB PRN PRN Hypoglycemia Protocol Albumin Human 50 mls @ 999 mls/hr 07/15/25 15:32 Albutein IVPB 08/14/25 15:31 Q10M PRN HYPOTENSION Micafungin Sodium 100 mg/ 100 mls @ 100 mls/hr 07/26/25 15:00 07/29/25 15:26 Sodium Chloride IVPB 07/30/25 15:59 Infused DAILY@1500 SALMA Infusion Daptomycin 800 mg/ Sodium 50 mls @ 100 mls/hr 07/29/25 15:00 07/29/25 16:20 Chloride IVPB Infused Q48H SALMA Infusion Meropenem 500 mg/ Sodium 100 mls @ 200 mls/hr 07/29/25 14:00 07/29/25 14:24 Chloride IVPB Infused Q24H SALMA Infusion Insulin Aspart 3 - 6 units 07/15/25 08:00 07/30/25 09:36 Insulin Aspart (*Bkc) 100 Units/Ml SUB-Q Not Given TIDWM [facility] Protocol Insulin Aspart 1 - 3 units 07/15/25 21:00 07/29/25 20:40 Insulin Aspart (*Bkc) 100 Units/Ml SUB-Q Not Given HS [facility] Protocol Magnesium Hydroxide 30 ml 07/16/25 08:39 Magnesium Hydroxide Susp 30 Ml Udc PO DAILY PRN Constipation Miconazole Nitrate 1 applic 07/26/25 14:00 07/30/25 05:23 Miconazole Nitrate 2% Cream 30 Gm Tube TOPICAL 1 applic Q8HR [facility] Administration Miscellaneous Information 1 each 07/28/25 00:01 07/29/25 09:47 Please Renew Hydromorphones And Oxycodone. Per [employer] Procedure, It Will Discontinue If XX 08/27/25 00:00 Not Given CLARIFY SALMA Naloxone HCl 0.1 mg 07/19/25 14:13 Naloxone Hcl 0.4 Mg/Ml Vial IV PUSH Q2M PRN Opiate Reversal Oxycodone HCl 2.5 mg 07/19/25 14:13 07/21/25 21:03 Oxycodone Hcl (*Crx) 2.5 Mg Tab Ir PO 2.5 mg Q4H PRN Administration Pain Rated 4-6 Oxycodone HCl 5 mg 07/19/25 14:13 07/29/25 20:37 Oxycodone Hcl (*Crx) 5 Mg Tab Ir PO 5 mg Q4H PRN Administration Pain Rated 7-10 Polyethylene Glycol 17 gm 07/16/25 09:00 07/30/25 09:36 Polyethylene Glycol 3350 17 Gm Powd.Pack PO 17 gm QAM SALMA Administration Sodium Chloride 10 ml 07/19/25 22:00 07/30/25 05:20 Central Line Flush IV PUSH 10 ml Q8HR SALMA Administration Sodium Chloride 10 ml 07/19/25 17:03 07/24/25 00:32 Central Line Flush IV PUSH 10 ml PRN PRN Administration with TPN bag changes Sodium Chloride 20 ml 07/19/25 17:03 07/30/25 05:21 Central Line Flush IV PUSH 20 ml PRN PRN Administration after blood draws Radiology Results: ITS Impressions Cervical Spine CT 07/15/25 07:00 IMPRESSION: 1. No acute abnormality of the cervical spine. 2: Severe cervical spondylosis. Head CT 07/15/25 07:03 IMPRESSION: 1. No acute intracranial abnormality. Shoulder X-Ray 07/15/25 07:39 Impression: 1: No acute fracture. Wrist X-Ray 07/15/25 07:40 Impression: 1: No acute fracture. Elbow X-Ray 07/15/25 07:41 Impression: 1: No acute fracture. Renal Ultrasound 07/15/25 13:09 Impression: 1: Unremarkable renal ultrasound. No stones, masses or hydronephrosis. Central Venous Line 07/19/25 13:50 IMPRESSION: Fluoroscopy used during portacatheter placement. Scrotum Ultrasound 07/20/25 19:05 IMPRESSION: 1. Diffuse scrotal wall thickening. Consider an infectious/inflammatory process such as cellulitis, lymphedema or systemic causes like cirrhosis, nephrotic syndrome or generalized edema. Soft Tissue Ultrasound 07/20/25 19:10 Impression: 1: Area of superficial venous thrombosis corresponds to the area of left arm swelling. Chest X-Ray 07/22/25 17:19 Impression: 1: Developing left basilar airspace disease, consistent with pneumonia. Labs Labs: Laboratory Results - last 24 hr 07/29/25 07/29/25 07/29/25 12:42 16:59 20:14 WBC RBC Hgb Hct MCV MCH MCHC RDW Plt Count MPV Immature Gran % (Auto) Neut % (Auto) Lymph % (Auto) Bartholomew % (Auto) Eos % (Auto) Baso % (Auto) Lymph # (Auto) Bartholomew # (Auto) Eos # (Auto) Baso # (Auto) Abs Immat Gran (auto) Absolute Neuts (auto) Absolute Nucleated RBC Nucleated RBC % Sodium Potassium Chloride Carbon Dioxide Anion Gap BUN Creatinine Estim Creat Clear Calc Estimated GFR Glucose POC Capillary Glucose 114 H 157 H 183 H Calcium Phosphorus Iron TIBC % Saturation Ferritin Albumin Vitamin B12 Folate 07/30/25 07/30/25 07/30/25 05:17 05:57 07:47 WBC 12.9 H RBC 2.65 L Hgb 8.1 L Hct 26.9 L MCV 101.5 H MCH 30.6 MCHC 30.1 L RDW 15.4 H Plt Count 223 MPV 9.4 Immature Gran % (Auto) 2.2 H Neut % (Auto) 78.8 H Lymph % (Auto) 8.1 L Bartholomew % (Auto) 8.4 Eos % (Auto) 2.0 Baso % (Auto) 0.5 Lymph # (Auto) 1.05 Bartholomew # (Auto) 1.1 H Eos # (Auto) 0.3 Baso # (Auto) 0.1 Abs Immat Gran (auto) 0.28 H Absolute Neuts (auto) 10.2 H Absolute Nucleated RBC 0.000 Nucleated RBC % 0.0 Sodium 132 L Potassium 4.2 Chloride 99 Carbon Dioxide 28 Anion Gap 5 BUN 51 H D Creatinine 3.86 H Estim Creat Clear Calc 30 Estimated GFR 15 L Glucose 132 H POC Capillary Glucose 170 H Calcium 9.2 Phosphorus 4.4 Iron 41 L TIBC 249 L % Saturation 16 L Ferritin 170.00 Albumin 2.7 L Vitamin B12 680.0 Folate 7.9
[2025-07-30] MEDS: BUMETANIDE INJ 1 MG/4 ML VIAL 2 MG IV PUSH ×2 (12:19→17:30)
[2025-07-30] MEDS: oxyCODONE HCL (*CRX) 5 MG TAB IR PO ×3 (12:26→22:21)
--- NOTE | 2025-07-30 13:08 | PM.IMPN ---
Progress Note: A&P Assessment and Plan (1) Actinic keratosis: Code(s): L57.0 - Actinic keratosis Status: Acute (2) Acute kidney injury: Code(s): N17.9 - Acute kidney failure, unspecified Status: Acute (3) Cellulitis of scrotum: Code(s): N49.2 - Inflammatory disorders of scrotum Status: Acute (4) Rhabdomyolysis: Qualifiers: Rhabdomyolysis type: non-traumatic Qualified Code(s): M62.82 - Rhabdomyolysis Code(s): M62.82 - Rhabdomyolysis Status: Acute Plan 69-year-old male with PMH morbid obesity with BMI 59, diastolic heart failure, paroxysmal atrial fibrillation, type 2 diabetes mellitus without current long-term use of insulin, JOSÉ LUIS, hyperlipidemia, hypertension. He was found by family member on the ground with unclear time down. ----- Rhabdomyolysis, resolved. Acute renal failure: Nephrology following. Tunneled dialysis catheter placed Urine output is increasing, serum creatinine improving. Today will receive diuresis per Nephrology. Disposition regarding dialysis is pending. He has 1+ pitting edema of all 4 extremities. This is improved from prior. Acute hyperkalemia: Resolved. Sepsis on admission as evidenced by tachycardia tachypnea leukocytosis. Blood culture 07/14/2025, no growth, final. Scrotal cellulitis, purulent: Infectious disease, appreciate recommendations. 07/29/2025, change linezolid and Zosyn to meropenem and daptomycin. Last day of micafungin on 07/30/2025. Micafungin cream to scrotal region. Re-culture of purulent drainage on 07/29/2025 from the scrotal area which appears to be coming from the macerated area on the anterior inferior surface of his scrotum. I discussed with nursing, asked that he be shortly cleaned at least once a day to which they report he has been. Diabetes mellitus: Continue Accu-Cheks a.c. HS with a low-dose insulin sliding scale. Paroxysmal atrial fibrillation on Xarelto: Due to acute renal failure Xarelto has been changed to Eliquis 2.5 mg p.o. b.i.d. continue BACKEND TESTER amiodarone 200 mg p.o. q.day Right superficial venous thrombosis of left upper extremity, continue to monitor Monitor transaminitis Acute anemia: Status post 1 unit PRBC. Continue EPO per Nephrology. Monitor hemoglobin Hyponatremia, stable. Diabetes: Continue Accu-Cheks CPAP nightly for JOSÉ LUIS Diastolic heart failure: Continue Coreg 12.5 mg p.o. b.i.d.. Patient will like to be full code. Pending discharge to skilled facility. Renal dialysis diet. Saline lock IV. PT/OT evaluations ordered. Subjective Date/time seen: 07/30/25 13:08 Interval history: No major acute overnight events. Patient is please his urine output going up and his discussion with Nephrology. He continues to deny pain at the scrotal area or anywhere for that matter. Review of Systems Review of Systems: All systems reviewed & are unremarkable except as noted in HPI and below (Subjective) Exam Const: General: comfortable and no acute distress Other: Obese. A&O x3 HENMT: Mouth: Yes moist mucous membranes Eyes: Pupils: Equal, round and reactive pupils present Neck: Neck: supple Resp: Effort & Inspection: normal respiratory effort Auscultation: clear to auscultation bilaterally Cardio: Rate: regular rate GI: Inspection: non-distended GI Palp: Yes Soft to palpation : Other: Slight erythema. Some pooling of purulence at the creases of his scrotum and inguinal folds Extrem: General: edema Objective Data Vital Signs Vital Signs: Vital Signs - 24 hr 07/29/25 13:24 07/29/25 16:00 07/29/25 16:42 Temperature 97.2 F L Pulse Rate 80 75 70 Respiratory Rate 18 Blood Pressure 112/36 L Pulse Oximetry 93 Oxygen Delivery 07/29/25 20:00 07/29/25 20:00 07/29/25 20:09 Temperature 97.8 F Pulse Rate 70 73 Respiratory Rate 20 Blood Pressure 108/48 L Pulse Oximetry 93 Oxygen Delivery Room Air 07/29/25 22:30 07/29/25 22:34 07/30/25 00:00 Temperature Pulse Rate 72 71 Respiratory Rate Blood Pressure Pulse Oximetry 93 93 Oxygen Delivery Autopap Room Air 07/30/25 02:10 07/30/25 03:36 07/30/25 04:00 Temperature 97.7 F Pulse Rate 73 73 Respiratory Rate 20 Blood Pressure 112/48 L Pulse Oximetry 92 Oxygen Delivery Autopap 07/30/25 09:36 07/30/25 09:36 Temperature Pulse Rate 73 73 Respiratory Rate Blood Pressure Pulse Oximetry Oxygen Delivery Intake/Output Intake/Output: Intake & Output 07/27/25 07/28/25 07/29/25 07/30/25 23:59 23:59 23:59 23:59 Intake Total 2170 1360 1350 630 Output Total 2975 50 3725 100 Balance -805 1310 -2375 530 Meds/Results Medications: Active Medications Generic Name Dose Route Start Last Admin Trade Name Freq PRN Reason Stop Dose Admin Acetaminophen 1,000 mg 07/16/25 09:58 07/25/25 13:58 Acetaminophen 500 Mg Tablet PO 1,000 mg Q6H PRN Administration Fever Acetaminophen 500 mg 07/19/25 14:13 07/23/25 15:38 Acetaminophen 500 Mg Tablet PO 500 mg Q6H PRN Administration Pain Rated 1-3 Albuterol/Ipratropium 3 ml 07/17/25 20:40 07/20/25 00:58 Ipratropium 0.5 Mg/Albuterol Sulfate 2.5 Mg Ampul.Neb 3 Ml INHALATION 3 ml Q6HRT PRN Administration wheezing Alteplase, Recombinant 2 mg 07/28/25 23:16 07/28/25 23:41 Alteplase 2 Mg Vial (Cathflo) IV PUSH 2 mg ONCE PRN Administration Line Occlusion Amiodarone HCl 200 mg 07/15/25 02:30 07/30/25 09:36 Amiodarone Hcl 200 Mg Tablet PO 200 mg DAILY SALMA Administration Apixaban 2.5 mg 07/26/25 21:00 07/30/25 09:36 Apixaban 2.5 Mg Tablet PO 2.5 mg Q12HR SALMA Administration Bisacodyl 5 mg 07/22/25 13:35 07/30/25 09:36 Bisacodyl 5 Mg Tablet Ec PO 5 mg QAM SALMA Administration Bumetanide 2 mg 07/30/25 12:00 07/30/25 12:19 Bumetanide Inj 1 Mg/4 Ml Vial IV PUSH 07/30/25 18:01 2 mg Q6H SALMA Administration Calcium Acetate 2,001 mg 07/24/25 12:00 07/30/25 12:19 Calcium Acetate 667 Mg Tablet PO 2,001 mg TIDWM SALMA Administration Carvedilol 12.5 mg 07/15/25 09:00 07/30/25 09:36 Carvedilol 12.5 Mg Tablet PO 12.5 mg BID SALMA Administration Dextrose 12.5 gm 07/15/25 01:20 Dextrose 50% 25 Gm/50 Ml Syringe IV PUSH PRN PRN Hypoglycemia Protocol Epoetin Sd-epbx 20,000 units 07/25/25 09:00 07/29/25 11:01 Epoetin Sd-Epbx 20,000 Units/Ml Vial IV PUSH 20,000 units MOWEFR@09 SALMA Administration Glucagon 1 mg 07/15/25 01:20 Glucagon For Inj 1 Mg Vial IM PRN PRN Hypoglycemia Protocol Glucose 15 gm 07/15/25 01:20 Glucose Oral Gel 15 Gm Of Glucse In 37.5 Gm Tube PO PRN PRN Hypoglycemia Protocol Dextrose 1,000 mls @ 100 mls/hr 07/15/25 01:20 Dextrose 5% 1,000 Ml IVPB PRN PRN Hypoglycemia Protocol Albumin Human 50 mls @ 999 mls/hr 07/15/25 15:32 Albutein IVPB 08/14/25 15:31 Q10M PRN HYPOTENSION Micafungin Sodium 100 mg/ 100 mls @ 100 mls/hr 07/26/25 15:00 07/29/25 15:26 Sodium Chloride IVPB 07/30/25 15:59 Infused DAILY@1500 SALMA Infusion Daptomycin 800 mg/ Sodium 50 mls @ 100 mls/hr 07/29/25 15:00 07/29/25 16:20 Chloride IVPB Infused Q48H SALMA Infusion Meropenem 500 mg/ Sodium 100 mls @ 200 mls/hr 07/29/25 14:00 07/29/25 14:24 Chloride IVPB Infused Q24H SALMA Infusion Insulin Aspart 3 - 6 units 07/15/25 08:00 07/30/25 12:05 Insulin Aspart (*Bkc) 100 Units/Ml SUB-Q Not Given TIDWM SALMA Protocol Insulin Aspart 1 - 3 units 07/15/25 21:00 07/29/25 20:40 Insulin Aspart (*Bkc) 100 Units/Ml SUB-Q Not Given HS SALMA Protocol Magnesium Hydroxide 30 ml 07/16/25 08:39 Magnesium Hydroxide Susp 30 Ml Udc PO DAILY PRN Constipation Miconazole Nitrate 1 applic 07/26/25 14:00 07/30/25 05:23 Miconazole Nitrate 2% Cream 30 Gm Tube TOPICAL 1 applic Q8HR SALMA Administration Miscellaneous Information 1 each 07/28/25 00:01 07/29/25 09:47 Please Renew Hydromorphones And Oxycodone. Per [employer] Procedure, It Will Discontinue If XX 08/27/25 00:00 Not Given CLARIFY SALMA Naloxone HCl 0.1 mg 07/19/25 14:13 Naloxone Hcl 0.4 Mg/Ml Vial IV PUSH Q2M PRN Opiate Reversal Oxycodone HCl 2.5 mg 07/19/25 14:13 07/21/25 21:03 Oxycodone Hcl (*Crx) 2.5 Mg Tab Ir PO 2.5 mg Q4H PRN Administration Pain Rated 4-6 Oxycodone HCl 5 mg 07/19/25 14:13 07/30/25 12:26 Oxycodone Hcl (*Crx) 5 Mg Tab Ir PO 5 mg Q4H PRN Administration Pain Rated 7-10 Polyethylene Glycol 17 gm 07/16/25 09:00 07/30/25 09:36 Polyethylene Glycol 3350 17 Gm Powd.Pack PO 17 gm QAM SALMA Administration Sodium Chloride 10 ml 07/19/25 22:00 07/30/25 05:20 Central Line Flush IV PUSH 10 ml Q8HR SALMA Administration Sodium Chloride 10 ml 07/19/25 17:03 07/24/25 00:32 Central Line Flush IV PUSH 10 ml PRN PRN Administration with TPN bag changes Sodium Chloride 20 ml 07/19/25 17:03 07/30/25 05:21 Central Line Flush IV PUSH 20 ml PRN PRN Administration after blood draws Radiology Results: ITS Impressions Cervical Spine CT 07/15/25 07:00 IMPRESSION: 1. No acute abnormality of the cervical spine. 2: Severe cervical spondylosis. Head CT 07/15/25 07:03 IMPRESSION: 1. No acute intracranial abnormality. Shoulder X-Ray 07/15/25 07:39 Impression: 1: No acute fracture. Wrist X-Ray 07/15/25 07:40 Impression: 1: No acute fracture. Elbow X-Ray 07/15/25 07:41 Impression: 1: No acute fracture. Renal Ultrasound 07/15/25 13:09 Impression: 1: Unremarkable renal ultrasound. No stones, masses or hydronephrosis. Central Venous Line 07/19/25 13:50 IMPRESSION: Fluoroscopy used during portacatheter placement. Scrotum Ultrasound 07/20/25 19:05 IMPRESSION: 1. Diffuse scrotal wall thickening. Consider an infectious/inflammatory process such as cellulitis, lymphedema or systemic causes like cirrhosis, nephrotic syndrome or generalized edema. Soft Tissue Ultrasound 07/20/25 19:10 Impression: 1: Area of superficial venous thrombosis corresponds to the area of left arm swelling. Chest X-Ray 07/22/25 17:19 Impression: 1: Developing left basilar airspace disease, consistent with pneumonia. Labs Labs: Laboratory Results - last 24 hr 07/29/25 07/29/25 07/30/25 16:59 20:14 05:17 WBC 12.9 H RBC 2.65 L Hgb 8.1 L Hct 26.9 L MCV 101.5 H MCH 30.6 MCHC 30.1 L RDW 15.4 H Plt Count 223 MPV 9.4 Immature Gran % (Auto) 2.2 H Neut % (Auto) 78.8 H Lymph % (Auto) 8.1 L [place] % (Auto) 8.4 Eos % (Auto) 2.0 Baso % (Auto) 0.5 Lymph # (Auto) 1.05 [place] # (Auto) 1.1 H Eos # (Auto) 0.3 Baso # (Auto) 0.1 Abs Immat Gran (auto) 0.28 H Absolute Neuts (auto) 10.2 H Absolute Nucleated RBC 0.000 Nucleated RBC % 0.0 Sodium 132 L Potassium 4.2 Chloride 99 Carbon Dioxide 28 Anion Gap 5 BUN 51 H D Creatinine 3.86 H Estim Creat Clear Calc 30 Estimated GFR 15 L Glucose 132 H POC Capillary Glucose 157 H 183 H Calcium 9.2 Phosphorus 4.4 Iron TIBC % Saturation Ferritin Albumin 2.7 L Vitamin B12 680.0 Folate 7.9 07/30/25 07/30/25 07/30/25 05:57 07:47 11:45 WBC RBC Hgb Hct MCV MCH MCHC RDW Plt Count MPV Immature Gran % (Auto) Neut % (Auto) Lymph % (Auto) [place] % (Auto) Eos % (Auto) Baso % (Auto) Lymph # (Auto) [place] # (Auto) Eos # (Auto) Baso # (Auto) Abs Immat Gran (auto) Absolute Neuts (auto) Absolute Nucleated RBC Nucleated RBC % Sodium Potassium Chloride Carbon Dioxide Anion Gap BUN Creatinine Estim Creat Clear Calc Estimated GFR Glucose POC Capillary Glucose 170 H 135 H Calcium Phosphorus Iron 41 L TIBC 249 L % Saturation 16 L Ferritin 170.00 Albumin Vitamin B12 Folate
[2025-07-30] MEDS: MEROPENEM 500 MG in SODIUM CHLORIDE 0.9% IV 100 ML 200 ML IVPB (13:19)
[2025-07-30] MEDS: MICAFUNGIN SODIUM 100 MG in SODIUM CHLORIDE 0.9% IV 100 ML IVPB (15:16)
[2025-07-31] VITALS (10 sets, daily range): BP systolic 111–127; BP diastolic 44–50; PULSE 67–75; RESP 16–20; TEMP 36.3–36.6; O2SAT 91–96
[2025-07-31] MEDS: CENTRAL LINE FLUSH 10 ML IV PUSH ×3 (04:59→21:15)
[2025-07-31] MEDS: CENTRAL LINE FLUSH 20 ML IV PUSH (04:59)
[2025-07-31] MEDS: MICONAZOLE NITRATE 2% CREAM 30 GM TUBE 1 APPLIC TOPICAL ×3 (05:00→21:20)
[2025-07-31 05:18] LABS: Hematocrit 26.7 % (42.0-52.0); Hemoglobin 8.1 g/dL (14.0-18.0); Immature Granulocyte Percent A 1.2 % (0-0.5); Lymphocytes Absolute Auto 0.95 K/mm3 (0.9-3.2); Mean Corpuscular HGB Conc 30.3 g/dl (32-36); Mean Corpuscular Hemoglobin 30.7 pg (26-34); Mean Corpuscular Volume 101.1 fl (80-100); Nucleated Red Blood Cells Absolute Auto 0.000 K/mm3 (0.0-0.012); Nucleated Red Blood Cells Perc 0.0 % (0.0-0.2); Platelet Count Result 231 k/mm3 (150-375); Red Blood Count 2.64 M/mm3 (4.6-6.20); White Blood Count 12.5 K/mm3 (4.5-10.0)
[2025-07-31 05:36] LABS: Albumin Level 2.6 g/dL (3.5-5.1); Anion Gap 6 mmol/L (4-12); Blood Urea Nitrogen 70 mg/dL (9-20); Calcium 9.6 mg/dL (8.4-10.2); Carbon Dioxide 27 mmol/L (22-30); Chloride 98 mmol/L (98-107); Creatine Kinase 586 U/L (55-170); Estimated CRCL calculation 26 ml/min; Estimated Glomerular Filt Rate 13; Glucose 121 mg/dL (65-110); Potassium 4.3 mmol/L (3.4-5.0); Sodium 131 mmol/L (137-145)
--- NOTE | 2025-07-31 08:58 | P.PNNP_ITS ---
Progress Note: A&P Assessment and Plan (1) Acute kidney injury: Code(s): N17.9 - Acute kidney failure, unspecified Status: Acute Assessment and Plan: * acute kidney injury. * as noted by admission labs * progressively worsening as noted by trend of labs since hospitalization began * was also complicated by persistent hyperkalemia unresponsive to medical therapy and declining UOP * baseline creatinine normal: * 1.16mg/dL in October 2024 (by outpatient labs from PCP) * 1.30mg/dL in October 2022 ([facility]) * multifactorial etiology: * rhabdomyolysis * MANUEL-I use prior to admission * diuretic use (lasix + spironolactone) prior to admission * prerenal factors(?) * infection/early sepsis(?) * other(?) * evaluation to date noted: * prerenal urine electrolytes * urine eosinophils negative * CPK as already noted * mild proteinuria * renal ultrasound without obstruction * s/p tunneled HD catheter placement (on 07/19/25) * CK down to 586. * Hemodynamically doing well. * Off Manuel inhibitors. * Infection seems to have settled down as he is afebrile and white cell count is improving; however still on meropenem, daptomycin, and micafungin * He is due for dialysis tomorrow * creatinine ben from 3.9-4.6, but he did make lots of urine in response to the Bumex : About 2000cc since the 1st dose. * He continues to make a lot of urine. His Correa bag was half full when I saw him and that was not counted in the intake/ output yet. So will not give any more diuretics today but will see how the creatinine looks tomorrow. I wrote orders for dialysis but these can be canceled if his creatinine is better. (2) Hyperkalemia: Code(s): E87.5 - Hyperkalemia Status: Acute Assessment and Plan: * resolved (3) Rhabdomyolysis: Code(s): M62.82 - Rhabdomyolysis Status: Acute Assessment and Plan: * resolved * CK down to only 1400. Will check 1 tomorrow (4) Leukocytosis: Qualifiers: Leukocytosis type: unspecified Qualified Code(s): D72.829 - Elevated white blood cell count, unspecified Code(s): D72.829 - Elevated white blood cell count, unspecified Status: Acute Assessment and Plan: * slow improvement * initial concern was sepsis given associated lactic acidosis, tachycardia, tachypnea on admission * Infectious Disease following with recommendations noted * potential sources noted: * scrotal cellulitis * right arm hematoma * constipation * pneumonia * tinea cruris * elevated CPK * on antibiotics/antifungals as outlined * cultures negative so far * white cell count improving and afebrile (5) Anemia: Code(s): D64.9 - Anemia, unspecified Status: Acute Assessment and Plan: * due to previous IVF hydration, KAITLIN/ARF, and trauma/hematomas * Epogen [id number] with each HD * check anemia studies * hemoglobin 8.1 today (6) Hyponatremia: Code(s): E87.1 - Hypo-osmolality and hyponatremia Status: Acute Assessment and Plan: * acute (on chronic?) * noted as far back as October 2022 * however, on PCP labs in October 2024, sodium was 138mmol/L * suspect due more related to KAITLIN/ARF and diminished urine output/anuria (dilutional) * TSH and cortisol okay * dialysis helping to correct to some degree. (7) Atrial fibrillation and flutter: Code(s): I48.91 - Unspecified atrial fibrillation; I48.92 - Unspecified atrial flutter Status: Chronic Assessment and Plan: * paroxysmal in nature * on amiodarone * on Eliquis (8) Transaminitis: Code(s): R74.01 - Elevation of levels of liver transaminase levels Status: Acute Assessment and Plan: * last ALT was closer to normal (9) Hypertension: Code(s): I10 - Essential (primary) hypertension Status: Chronic Assessment and Plan: * systolic 108-140 * occasionally on the soft side, especially during dialysis (10) Diabetes: Code(s): E11.9 - Type 2 diabetes mellitus without complications Status: Chronic Assessment and Plan: * follow accu-cheks * glycemic control per hospitalist Will continue to follow. Subjective Date/time seen: 07/31/25 08:58 Interval history: Patient is alert. He feels okay. Hungry for breakfast. Exam Narrative: General: elderly WD/WN male with a high body mass index in NAD Heart: normal S1 and S2; no rub Or gallop Lungs: clear bilaterally Abdomen: soft, nontender, nondistended, positive bowel sounds Extremities: 1+ edema (upper and lower extremities) Skin: venous stasis changes over BLEs present; chronic actinic changes in UEs Objective Data Vital Signs Vital Signs: Vital Signs - 24 hr 07/30/25 09:36 07/30/25 09:36 07/30/25 09:36 Temperature Pulse Rate 73 73 Respiratory Rate Blood Pressure Pulse Oximetry Oxygen Delivery Autopap 07/30/25 12:00 07/30/25 13:14 07/30/25 16:00 Temperature 97.1 F L Pulse Rate 72 70 74 Respiratory Rate 20 Blood Pressure 136/54 L Pulse Oximetry 92 Oxygen Delivery 07/30/25 17:30 07/30/25 20:00 07/30/25 20:00 Temperature Pulse Rate 74 73 Respiratory Rate Blood Pressure Pulse Oximetry Oxygen Delivery Room Air 07/30/25 22:00 07/31/25 00:00 07/31/25 04:00 Temperature 97.7 F Pulse Rate 78 72 68 Respiratory Rate 18 Blood Pressure 117/41 L Pulse Oximetry 90 Oxygen Delivery 07/31/25 06:00 Temperature 97.8 F Pulse Rate 72 Respiratory Rate 18 Blood Pressure 114/44 L Pulse Oximetry 93 Oxygen Delivery Intake/Output Intake/Output: Intake & Output 07/28/25 07/29/25 07/30/25 07/31/25 23:59 23:59 23:59 23:59 Intake Total 1360 1350 990 Output Total 66 7665 6733 7451 Balance 6518 -8436 -153 -4214 Meds/Results Medications: Active Medications Generic Name Dose Route Start Last Admin Trade Name Freq PRN Reason Stop Dose Admin Acetaminophen 1,000 mg 07/16/25 09:58 07/25/25 13:58 Acetaminophen 500 Mg Tablet PO 1,000 mg Q6H PRN Administration Fever Acetaminophen 500 mg 07/19/25 14:13 07/23/25 15:38 Acetaminophen 500 Mg Tablet PO 500 mg Q6H PRN Administration Pain Rated 1-3 Albuterol/Ipratropium 3 ml 07/17/25 20:40 07/20/25 00:58 Ipratropium 0.5 Mg/Albuterol Sulfate 2.5 Mg Ampul.Neb 3 Ml INHALATION 3 ml Q6HRT PRN Administration wheezing Alteplase, Recombinant 2 mg 07/28/25 23:16 07/28/25 23:41 Alteplase 2 Mg Vial (Cathflo) IV PUSH 2 mg ONCE PRN Administration Line Occlusion Amiodarone HCl 200 mg 07/15/25 02:30 07/30/25 09:36 Amiodarone Hcl 200 Mg Tablet PO 200 mg DAILY SALMA Administration Apixaban 2.5 mg 07/26/25 21:00 07/30/25 22:21 Apixaban 2.5 Mg Tablet PO 2.5 mg Q12HR SALMA Administration Bisacodyl 5 mg 07/22/25 13:35 07/30/25 09:36 Bisacodyl 5 Mg Tablet Ec PO 5 mg QAM SALMA Administration Calcium Acetate 2,001 mg 07/24/25 12:00 07/30/25 17:30 Calcium Acetate 667 Mg Tablet PO 2,001 mg TIDWM SALMA Administration Carvedilol 12.5 mg 07/15/25 09:00 07/30/25 17:30 Carvedilol 12.5 Mg Tablet PO 12.5 mg BID SALMA Administration Dextrose 12.5 gm 07/15/25 01:20 Dextrose 50% 25 Gm/50 Ml Syringe IV PUSH PRN PRN Hypoglycemia Protocol Epoetin Sd-epbx 20,000 units 07/25/25 09:00 07/29/25 11:01 Epoetin Sd-Epbx 20,000 Units/Ml Vial IV PUSH 20,000 units MOWEFR@09 SALMA Administration Glucagon 1 mg 07/15/25 01:20 Glucagon For Inj 1 Mg Vial IM PRN PRN Hypoglycemia Protocol Glucose 15 gm 07/15/25 01:20 Glucose Oral Gel 15 Gm Of Glucse In 37.5 Gm Tube PO PRN PRN Hypoglycemia Protocol Dextrose 1,000 mls @ 100 mls/hr 07/15/25 01:20 Dextrose 5% 1,000 Ml IVPB PRN PRN Hypoglycemia Protocol Albumin Human 50 mls @ 999 mls/hr 07/15/25 15:32 Albutein IVPB 08/14/25 15:31 Q10M PRN HYPOTENSION Daptomycin 800 mg/ Sodium 50 mls @ 100 mls/hr 07/29/25 15:00 07/29/25 16:20 Chloride IVPB Infused Q48H SALMA Infusion Meropenem 500 mg/ Sodium 100 mls @ 200 mls/hr 07/29/25 14:00 07/30/25 13:19 Chloride IVPB 200 mls/hr Q24H SALMA Administration Albumin Human 50 mls @ 999 mls/hr 07/31/25 08:03 Albutein IVPB 08/01/25 08:02 Q10M PRN HYPOTENSION Sodium Chloride 1,000 mls @ 999 mls/hr 07/31/25 08:03 Normal Saline Iv IV CONT 07/31/25 09:03 .Q1H1M ONE Insulin Aspart 3 - 6 units 07/15/25 08:00 07/30/25 17:23 Insulin Aspart (*Bkc) 100 Units/Ml SUB-Q Not Given TIDWM [facility] Protocol Insulin Aspart 1 - 3 units 07/15/25 21:00 07/30/25 22:24 Insulin Aspart (*Bkc) 100 Units/Ml SUB-Q Not Given HS [facility] Protocol Magnesium Hydroxide 30 ml 07/16/25 08:39 Magnesium Hydroxide Susp 30 Ml Udc PO DAILY PRN Constipation Miconazole Nitrate 1 applic 07/26/25 14:00 07/31/25 05:00 Miconazole Nitrate 2% Cream 30 Gm Tube TOPICAL 1 applic Q8HR SALMA Administration Miscellaneous Information 1 each 07/28/25 00:01 07/29/25 09:47 Please Renew Hydromorphones And Oxycodone. Per [employer] Procedure, It Will Discontinue If XX 08/27/25 00:00 Not Given CLARIFY SALMA Naloxone HCl 0.1 mg 07/19/25 14:13 Naloxone Hcl 0.4 Mg/Ml Vial IV PUSH Q2M PRN Opiate Reversal Oxycodone HCl 2.5 mg 07/19/25 14:13 07/21/25 21:03 Oxycodone Hcl (*Crx) 2.5 Mg Tab Ir PO 2.5 mg Q4H PRN Administration Pain Rated 4-6 Oxycodone HCl 5 mg 07/19/25 14:13 07/30/25 22:21 Oxycodone Hcl (*Crx) 5 Mg Tab Ir PO 5 mg Q4H PRN Administration Pain Rated 7-10 Polyethylene Glycol 17 gm 07/16/25 09:00 07/30/25 09:36 Polyethylene Glycol 3350 17 Gm Powd.Pack PO 17 gm QAM SALMA Administration Sodium Chloride 10 ml 07/19/25 22:00 07/31/25 04:59 Central Line Flush IV PUSH 10 ml Q8HR SALMA Administration Sodium Chloride 10 ml 07/19/25 17:03 07/24/25 00:32 Central Line Flush IV PUSH 10 ml PRN PRN Administration with TPN bag changes Sodium Chloride 20 ml 07/19/25 17:03 07/31/25 04:59 Central Line Flush IV PUSH 20 ml PRN PRN Administration after blood draws Radiology Results: ITS Impressions Cervical Spine CT 07/15/25 07:00 IMPRESSION: 1. No acute abnormality of the cervical spine. 2: Severe cervical spondylosis. Head CT 07/15/25 07:03 IMPRESSION: 1. No acute intracranial abnormality. Shoulder X-Ray 07/15/25 07:39 Impression: 1: No acute fracture. Wrist X-Ray 07/15/25 07:40 Impression: 1: No acute fracture. Elbow X-Ray 07/15/25 07:41 Impression: 1: No acute fracture. Renal Ultrasound 07/15/25 13:09 Impression: 1: Unremarkable renal ultrasound. No stones, masses or hydronephrosis. Central Venous Line 07/19/25 13:50 IMPRESSION: Fluoroscopy used during portacatheter placement. Scrotum Ultrasound 07/20/25 19:05 IMPRESSION: 1. Diffuse scrotal wall thickening. Consider an infectious/inflammatory process such as cellulitis, lymphedema or systemic causes like cirrhosis, nephrotic syndrome or generalized edema. Soft Tissue Ultrasound 07/20/25 19:10 Impression: 1: Area of superficial venous thrombosis corresponds to the area of left arm swelling. Chest X-Ray 07/22/25 17:19 Impression: 1: Developing left basilar airspace disease, consistent with pneumonia. Labs Labs: Laboratory Results - last 24 hr 07/30/25 07/30/25 07/30/25 11:45 17:10 19:39 WBC RBC Hgb Hct MCV MCH MCHC RDW Plt Count MPV Immature Gran % (Auto) Neut % (Auto) Lymph % (Auto) [place] % (Auto) Eos % (Auto) Baso % (Auto) Lymph # (Auto) [place] # (Auto) Eos # (Auto) Baso # (Auto) Abs Immat Gran (auto) Absolute Neuts (auto) Absolute Nucleated RBC Nucleated RBC % Sodium Potassium Chloride Carbon Dioxide Anion Gap BUN Creatinine Estim Creat Clear Calc Estimated GFR Glucose POC Capillary Glucose 135 H 111 H 129 H Calcium Phosphorus Total Creatine Kinase Albumin 07/31/25 04:56 WBC 12.5 H RBC 2.64 L Hgb 8.1 L Hct 26.7 L MCV 101.1 H MCH 30.7 MCHC 30.3 L RDW 15.3 H Plt Count 231 MPV 9.6 Immature Gran % (Auto) 1.2 H Neut % (Auto) 80.0 H Lymph % (Auto) 7.6 L [place] % (Auto) 8.7 H Eos % (Auto) 1.9 Baso % (Auto) 0.6 Lymph # (Auto) 0.95 [place] # (Auto) 1.1 H Eos # (Auto) 0.2 Baso # (Auto) 0.1 Abs Immat Gran (auto) 0.15 H Absolute Neuts (auto) 10.0 H Absolute Nucleated RBC 0.000 Nucleated RBC % 0.0 Sodium 131 L Potassium 4.3 Chloride 98 Carbon Dioxide 27 Anion Gap 6 BUN 70 H D Creatinine 4.56 H Estim Creat Clear Calc 26 Estimated GFR 13 L Glucose 121 H POC Capillary Glucose Calcium 9.6 Phosphorus 5.0 H Total Creatine Kinase 586 H Albumin 2.6 L
[2025-07-31] MEDS: CALCIUM ACETATE 667 MG TABLET 2001 MG PO ×2 (10:59→18:16)
[2025-07-31] MEDS: AMIODARONE HCL 200 MG TABLET PO (10:59)
[2025-07-31] MEDS: APIXABAN 2.5 MG TABLET PO ×2 (10:59→21:13)
[2025-07-31] MEDS: BISACODYL 5 MG TABLET EC PO (10:59)
[2025-07-31] MEDS: oxyCODONE HCL (*CRX) 5 MG TAB IR PO (11:03)
[2025-07-31] MEDS: MEROPENEM 500 MG in SODIUM CHLORIDE 0.9% IV 100 ML 200 ML IVPB (13:35)
--- NOTE | 2025-07-31 14:32 | PCOTNOTE ---
Attempted re-evaluation x2 this date. First AM attempt patient was positioned and eating breakfast, at 14:30 patient declined therapy and requested for therapy to try again tomorrow.
[2025-07-31] MEDS: SODIUM CHLORIDE 0.9% IVPB (15:16)
[2025-07-31] MEDS: DAPTOMYCIN IVPB (15:16)
--- NOTE | 2025-07-31 16:37 | P.PNIM_ITS ---
Progress Note: A&P Assessment and Plan (1) Actinic keratosis: Code(s): L57.0 - Actinic keratosis Status: Acute (2) Acute kidney injury: Code(s): N17.9 - Acute kidney failure, unspecified Status: Acute (3) Cellulitis of scrotum: Code(s): N49.2 - Inflammatory disorders of scrotum Status: Acute (4) Rhabdomyolysis: Qualifiers: Rhabdomyolysis type: non-traumatic Qualified Code(s): M62.82 - Rhabdomyolysis Code(s): M62.82 - Rhabdomyolysis Status: Acute Plan 69-year-old male with PMH morbid obesity with BMI 59, diastolic heart failure, paroxysmal atrial fibrillation, type 2 diabetes mellitus without current long- term use of insulin, JOSÉ LUIS, hyperlipidemia, hypertension. He was found by family member on the ground with unclear time down. ----- Rhabdomyolysis, resolved. Acute renal failure: Nephrology following. Tunneled dialysis catheter placed Urine output is increasing, serum creatinine waxes and wanes. Having good urine output, status post Lasix. Plan for dialysis on 08/01/2025 with Nephrology pending repeat serum creatinine in the morning. Disposition is still pending. He has 1+ pitting edema of all 4 extremities. This is improved from prior. Acute hyperkalemia: Resolved. Sepsis on admission as evidenced by tachycardia tachypnea leukocytosis. Blood culture 07/14/2025, no growth, final. Scrotal cellulitis, purulent: Infectious disease, appreciate recommendations. 07/29/2025, change linezolid and Zosyn to meropenem and daptomycin. Last day of micafungin on 07/30/2025. Micafungin cream to scrotal region. Re-culture of purulent drainage on 07/29/2025 from the scrotal area which appears to be coming from the macerated area on the anterior inferior surface of his scrotum. Improved on 07/31/2025. Diabetes mellitus: Continue Accu-Cheks a.c. HS with a low-dose insulin sliding scale. Paroxysmal atrial fibrillation on Xarelto: Due to acute renal failure Xarelto has been changed to Eliquis 2.5 mg p.o. b.i.d. continue [employer] amiodarone 200 mg p.o. q.day, continue Coreg Right superficial venous thrombosis of left upper extremity, continue to monitor Monitor transaminitis Acute anemia: Status post 1 unit PRBC. Continue EPO per Nephrology. Monitor hemoglobin Hyponatremia, stable. Diabetes: Continue Accu-Cheks CPAP nightly for JOSÉ LUIS Diastolic heart failure: Continue Coreg 12.5 mg p.o. b.i.d.. Patient will like to be full code. Pending discharge to skilled facility. Renal dialysis diet. Saline lock IV. PT/OT evaluations ordered. Subjective Date/time seen: 07/31/25 16:37 Interval history: No major acute overnight events. He has continued to have good urine output, approximately 100 cc/hour as charted by nursing team. Patient has no complaints, no scrotal pain. No fevers, no shortness of breath. Review of Systems Review of Systems: All systems reviewed & are unremarkable except as noted in HPI and below (Subjective) Exam Const: General: comfortable and no acute distress Other: Obese. A&O x3 HENMT: Mouth: Yes moist mucous membranes Eyes: Pupils: Equal, round and reactive pupils present Neck: Neck: supple Resp: Effort & Inspection: normal respiratory effort Auscultation: clear to auscultation bilaterally Cardio: Rate: regular rate GI: Inspection: non-distended GI Palp: Yes Soft to palpation : Other: Slight erythema. Dry, no purulence. Extrem: General: edema Objective Data Vital Signs Vital Signs: Vital Signs - 24 hr 07/30/25 17:30 07/30/25 20:00 07/30/25 20:00 Temperature Pulse Rate 74 73 Respiratory Rate Blood Pressure Pulse Oximetry Oxygen Delivery Room Air Fraction of Inspired Oxygen 07/30/25 22:00 07/31/25 00:00 07/31/25 04:00 Temperature 97.7 F Pulse Rate 78 72 68 Respiratory Rate 18 Blood Pressure 117/41 L Pulse Oximetry 90 Oxygen Delivery Fraction of Inspired Oxygen 07/31/25 06:00 07/31/25 08:00 07/31/25 08:00 Temperature 97.8 F Pulse Rate 72 67 Respiratory Rate 18 Blood Pressure 114/44 L Pulse Oximetry 93 Oxygen Delivery Room Air Fraction of Inspired Oxygen 21 07/31/25 12:00 07/31/25 14:00 07/31/25 16:00 Temperature 97.4 F L Pulse Rate 73 70 74 Respiratory Rate 16 Blood Pressure 127/50 L Pulse Oximetry 96 Oxygen Delivery Fraction of Inspired Oxygen Intake/Output Intake/Output: Intake & Output 07/28/25 07/29/25 07/30/25 07/31/25 23:59 23:59 23:59 23:59 Intake Total 1360 1350 1090 180 Output Total 50 3725 1125 1100 Balance 7220 -2375 -35 -920 Meds/Results Medications: Active Medications Generic Name Dose Route Start Last Admin Trade Name Freq PRN Reason Stop Dose Admin Acetaminophen 1,000 mg 07/16/25 09:58 07/25/25 13:58 Acetaminophen 500 Mg Tablet PO 1,000 mg Q6H PRN Administration Fever Acetaminophen 500 mg 07/19/25 14:13 07/23/25 15:38 Acetaminophen 500 Mg Tablet PO 500 mg Q6H PRN Administration Pain Rated 1-3 Albuterol/Ipratropium 3 ml 07/17/25 20:40 07/20/25 00:58 Ipratropium 0.5 Mg/Albuterol Sulfate 2.5 Mg Ampul.Neb 3 Ml INHALATION 3 ml Q6HRT PRN Administration wheezing Alteplase, Recombinant 2 mg 07/28/25 23:16 07/28/25 23:41 Alteplase 2 Mg Vial (Cathflo) IV PUSH 2 mg ONCE PRN Administration Line Occlusion Amiodarone HCl 200 mg 07/15/25 02:30 07/31/25 10:59 Amiodarone Hcl 200 Mg Tablet PO 200 mg DAILY SALMA Administration Apixaban 2.5 mg 07/26/25 21:00 07/31/25 10:59 Apixaban 2.5 Mg Tablet PO 2.5 mg Q12HR SALMA Administration Bisacodyl 5 mg 07/22/25 13:35 07/31/25 10:59 Bisacodyl 5 Mg Tablet Ec PO 5 mg QAM SALMA Administration Calcium Acetate 2,001 mg 07/24/25 12:00 07/31/25 13:31 Calcium Acetate 667 Mg Tablet PO Not Given TIDWM SALMA Carvedilol 12.5 mg 07/15/25 09:00 07/31/25 10:59 Carvedilol 12.5 Mg Tablet PO 12.5 mg BID SALMA Administration Dextrose 12.5 gm 07/15/25 01:20 Dextrose 50% 25 Gm/50 Ml Syringe IV PUSH PRN PRN Hypoglycemia Protocol Epoetin Sd-epbx 20,000 units 07/25/25 09:00 07/29/25 11:01 Epoetin Sd-Epbx 20,000 Units/Ml Vial IV PUSH 20,000 units MOWEFR@09 SALMA Administration Glucagon 1 mg 07/15/25 01:20 Glucagon For Inj 1 Mg Vial IM PRN PRN Hypoglycemia Protocol Glucose 15 gm 07/15/25 01:20 Glucose Oral Gel 15 Gm Of Glucse In 37.5 Gm Tube PO PRN PRN Hypoglycemia Protocol Dextrose 1,000 mls @ 100 mls/hr 07/15/25 01:20 Dextrose 5% 1,000 Ml IVPB PRN PRN Hypoglycemia Protocol Albumin Human 50 mls @ 999 mls/hr 07/15/25 15:32 Albutein IVPB 08/14/25 15:31 Q10M PRN HYPOTENSION Daptomycin 800 mg/ Sodium 50 mls @ 100 mls/hr 07/29/25 15:00 07/31/25 15:16 Chloride IVPB 100 mls/hr Q48H SALMA Administration Meropenem 500 mg/ Sodium 100 mls @ 200 mls/hr 07/29/25 14:00 07/31/25 13:35 Chloride IVPB 200 mls/hr Q24H SALMA Administration Albumin Human 50 mls @ 999 mls/hr 07/31/25 08:03 Albutein IVPB 08/01/25 08:02 Q10M PRN HYPOTENSION Insulin Aspart 3 - 6 units 07/15/25 08:00 07/31/25 13:31 Insulin Aspart (*Bkc) 100 Units/Ml SUB-Q Not Given TIDWM SALMA Protocol Insulin Aspart 1 - 3 units 07/15/25 21:00 07/30/25 22:24 Insulin Aspart (*Bkc) 100 Units/Ml SUB-Q Not Given HS SALMA Protocol Magnesium Hydroxide 30 ml 07/16/25 08:39 Magnesium Hydroxide Susp 30 Ml Udc PO DAILY PRN Constipation Miconazole Nitrate 1 applic 07/26/25 14:00 07/31/25 13:59 Miconazole Nitrate 2% Cream 30 Gm Tube TOPICAL 1 applic Q8HR SALMA Administration Miscellaneous Information 1 each 07/28/25 00:01 07/29/25 09:47 Please Renew Hydromorphones And Oxycodone. Per [employer] Procedure, It Will Discontinue If XX 08/27/25 00:00 Not Given CLARIFY SALMA Naloxone HCl 0.1 mg 07/19/25 14:13 Naloxone Hcl 0.4 Mg/Ml Vial IV PUSH Q2M PRN Opiate Reversal Oxycodone HCl 2.5 mg 07/19/25 14:13 07/21/25 21:03 Oxycodone Hcl (*Crx) 2.5 Mg Tab Ir PO 2.5 mg Q4H PRN Administration Pain Rated 4-6 Oxycodone HCl 5 mg 07/19/25 14:13 07/31/25 11:03 Oxycodone Hcl (*Crx) 5 Mg Tab Ir PO 5 mg Q4H PRN Administration Pain Rated 7-10 Polyethylene Glycol 17 gm 07/16/25 09:00 07/31/25 10:59 Polyethylene Glycol 3350 17 Gm Powd.Pack PO 17 gm QAM SALMA Administration Sodium Chloride 10 ml 07/19/25 22:00 07/31/25 13:59 Central Line Flush IV PUSH 10 ml Q8HR SALMA Administration Sodium Chloride 10 ml 07/19/25 17:03 07/24/25 00:32 Central Line Flush IV PUSH 10 ml PRN PRN Administration with TPN bag changes Sodium Chloride 20 ml 07/19/25 17:03 07/31/25 04:59 Central Line Flush IV PUSH 20 ml PRN PRN Administration after blood draws Radiology Results: ITS Impressions Cervical Spine CT 07/15/25 07:00 IMPRESSION: 1. No acute abnormality of the cervical spine. 2: Severe cervical spondylosis. Head CT 07/15/25 07:03 IMPRESSION: 1. No acute intracranial abnormality. Shoulder X-Ray 07/15/25 07:39 Impression: 1: No acute fracture. Wrist X-Ray 07/15/25 07:40 Impression: 1: No acute fracture. Elbow X-Ray 07/15/25 07:41 Impression: 1: No acute fracture. Renal Ultrasound 07/15/25 13:09 Impression: 1: Unremarkable renal ultrasound. No stones, masses or hydronephrosis. Central Venous Line 07/19/25 13:50 IMPRESSION: Fluoroscopy used during portacatheter placement. Scrotum Ultrasound 07/20/25 19:05 IMPRESSION: 1. Diffuse scrotal wall thickening. Consider an infectious/inflammatory process such as cellulitis, lymphedema or systemic causes like cirrhosis, nephrotic sy ndrome or generalized edema. Soft Tissue Ultrasound 07/20/25 19:10 Impression: 1: Area of superficial venous thrombosis corresponds to the area of left arm swelling. Chest X-Ray 07/22/25 17:19 Impression: 1: Developing left basilar airspace disease, consistent with pneumonia. Labs Labs: Laboratory Results - last 24 hr 07/30/25 07/30/25 07/31/25 17:10 19:39 04:56 WBC 12.5 H RBC 2.64 L Hgb 8.1 L Hct 26.7 L MCV 101.1 H MCH 30.7 MCHC 30.3 L RDW 15.3 H Plt Count 231 MPV 9.6 Immature Gran % (Auto) 1.2 H Neut % (Auto) 80.0 H Lymph % (Auto) 7.6 L [place] % (Auto) 8.7 H Eos % (Auto) 1.9 Baso % (Auto) 0.6 Lymph # (Auto) 0.95 [place] # (Auto) 1.1 H Eos # (Auto) 0.2 Baso # (Auto) 0.1 Abs Immat Gran (auto) 0.15 H Absolute Neuts (auto) 10.0 H Absolute Nucleated RBC 0.000 Nucleated RBC % 0.0 Sodium 131 L Potassium 4.3 Chloride 98 Carbon Dioxide 27 Anion Gap 6 BUN 70 H D Creatinine 4.56 H Estim Creat Clear Calc 26 Estimated GFR 13 L Glucose 121 H POC Capillary Glucose 111 H 129 H Calcium 9.6 Phosphorus 5.0 H Total Creatine Kinase 586 H Albumin 2.6 L 07/31/25 07/31/25 07:56 12:20 WBC RBC Hgb Hct MCV MCH MCHC RDW Plt Count MPV Immature Gran % (Auto) Neut % (Auto) Lymph % (Auto) [place] % (Auto) Eos % (Auto) Baso % (Auto) Lymph # (Auto) [place] # (Auto) Eos # (Auto) Baso # (Auto) Abs Immat Gran (auto) Absolute Neuts (auto) Absolute Nucleated RBC Nucleated RBC % Sodium Potassium Chloride Carbon Dioxide Anion Gap BUN Creatinine Estim Creat Clear Calc Estimated GFR Glucose POC Capillary Glucose 111 H 132 H Calcium Phosphorus Total Creatine Kinase Albumin
[2025-08-01] VITALS (28 sets, daily range): BP systolic 118–148; BP diastolic 44–58; PULSE 65–96; RESP 17–18; TEMP 36.2–37; O2SAT 72–99
[2025-08-01 04:50] LABS: Hematocrit 28.0 % (42.0-52.0); Hemoglobin 8.4 g/dL (14.0-18.0); Immature Granulocyte Percent A 0.9 % (0-0.5); Lymphocytes Absolute Auto 0.90 K/mm3 (0.9-3.2); Mean Corpuscular HGB Conc 30.0 g/dl (32-36); Mean Corpuscular Hemoglobin 30.4 pg (26-34); Mean Corpuscular Volume 101.4 fl (80-100); Nucleated Red Blood Cells Absolute Auto 0.000 K/mm3 (0.0-0.012); Nucleated Red Blood Cells Perc 0.0 % (0.0-0.2); Platelet Count Result 233 k/mm3 (150-375); Red Blood Count 2.76 M/mm3 (4.6-6.20); White Blood Count 12.1 K/mm3 (4.5-10.0)
[2025-08-01 05:06] LABS: Alanine Aminotransferase 49 U/L (6-50); Albumin Level 2.7 g/dL (3.5-5.1); Alkaline Phosphatase 86 U/L (38-126); Anion Gap 4 mmol/L (4-12); Aspartate Amino Transferase 67 U/L (17-59); Bilirubin,Total 0.6 mg/dL (0.2-1.3); Blood Urea Nitrogen 83 mg/dL (9-20); Calcium 9.8 mg/dL (8.4-10.2); Carbon Dioxide 28 mmol/L (22-30); Chloride 100 mmol/L (98-107); Estimated CRCL calculation 24 ml/min; Estimated Glomerular Filt Rate 12; Glucose 139 mg/dL (65-110); Magnesium 2.3 mg/dL (1.6-2.3); Potassium 4.7 mmol/L (3.4-5.0); Sodium 132 mmol/L (137-145); Total Protein 5.4 g/dL (6.3-8.2)
[2025-08-01] MEDS: oxyCODONE HCL (*CRX) 2.5 MG TAB IR PO (06:57)
[2025-08-01] MEDS: APIXABAN 2.5 MG TABLET PO ×2 (08:53→20:18)
[2025-08-01] MEDS: AMIODARONE HCL 200 MG TABLET PO (08:53)
[2025-08-01] MEDS: BISACODYL 5 MG TABLET EC PO (08:54)
[2025-08-01] MEDS: CALCIUM ACETATE 667 MG TABLET 2001 MG PO ×3 (08:54→19:02)
[2025-08-01] MEDS: CENTRAL LINE FLUSH 10 ML IV PUSH ×3 (08:54→21:51)
[2025-08-01] MEDS: MICONAZOLE NITRATE 2% CREAM 30 GM TUBE 1 APPLIC TOPICAL ×3 (08:55→21:51)
--- NOTE | 2025-08-01 09:49 | WPDINFPN2 ---
Progress Note: A&P Assessment and Plan (1) Leukocytosis: Qualifiers: Leukocytosis type: unspecified Qualified Code(s): D72.829 - Elevated white blood cell count, unspecified Code(s): D72.829 - Elevated white blood cell count, unspecified Status: Acute (2) Cellulitis of scrotum: Code(s): N49.2 - Inflammatory disorders of scrotum Status: Acute (3) Hematoma of right upper extremity: Code(s): S40.021A - Contusion of right upper arm, initial encounter Status: Acute (4) Anemia: Code(s): D64.9 - Anemia, unspecified Status: Acute (5) Rhabdomyolysis: Qualifiers: Rhabdomyolysis type: non-traumatic Qualified Code(s): M62.82 - Rhabdomyolysis Code(s): M62.82 - Rhabdomyolysis Status: Acute (6) Acute kidney injury: Code(s): N17.9 - Acute kidney failure, unspecified Status: Acute (7) Transaminitis: Code(s): R74.01 - Elevation of levels of liver transaminase levels Status: Acute (8) Chronic hyponatremia: Code(s): E87.1 - Hypo-osmolality and hyponatremia Status: Acute (9) Hyperkalemia: Code(s): E87.5 - Hyperkalemia Status: Acute (10) Constipation: Code(s): K59.00 - Constipation, unspecified Status: Acute Plan ASSESSMENT: 1. scrotal cellulitis--cx unrevealing 2. morbid obesity 3. [place] 4. rhabdomyolysis, resolved 5. leukocytosis--multifactorial; WBC overall improved. 6. RUE hematoma 7. ?pneumonia RECOMMENDATIONS Continue meropenem and daptomycin, day 3 of 5-7. If repeat scrotal wound culture on in lightening anticipate discontinuation of antibiotics. miconazole cream to scrotal region blood cxs 07/14 neg and final Pt was seen via video telehealth consultation with the assistance of staff, chart, data and patient independently reviewed. Patient was located at [facility] while I was located in my [place] office. Received verbal consent from patient. Subjective Date/time seen: 08/01/25 09:49 Interval history: 08/01/2025: Afebrile and vital signs stable. White blood cell count remains low at 12.1. 07/29 scrotal wound culture remains pending. States he is feeling better. Review of Systems Review of Systems: All systems reviewed & are unremarkable except as noted in HPI and below Exam Narrative: Awake and alert.NAD, non-toxic, on room air. scrotum with purulence from wound; still erythematous and edematous Right greater than left extremity edema. Objective Data Vital Signs Vital Signs: Vital Signs - 24 hr 07/31/25 12:00 07/31/25 14:00 07/31/25 16:00 Temperature 97.4 F L Pulse Rate 73 70 74 Respiratory Rate 16 Blood Pressure 127/50 L Pulse Oximetry 96 Oxygen Delivery Fraction of Inspired Oxygen 07/31/25 20:00 07/31/25 20:00 07/31/25 20:07 Temperature 97.5 F L Pulse Rate 74 75 Respiratory Rate 20 Blood Pressure 111/47 L Pulse Oximetry 91 Oxygen Delivery Room Air Fraction of Inspired Oxygen 21 07/31/25 21:10 08/01/25 00:00 08/01/25 04:00 Temperature Pulse Rate 69 67 Respiratory Rate Blood Pressure Pulse Oximetry 94 Oxygen Delivery Room Air Fraction of Inspired Oxygen 08/01/25 05:02 08/01/25 08:00 08/01/25 08:53 Temperature 98.3 F Pulse Rate 71 65 68 Respiratory Rate 18 Blood Pressure 135/46 L Pulse Oximetry 92 Oxygen Delivery Fraction of Inspired Oxygen 08/01/25 08:53 Temperature Pulse Rate 68 Respiratory Rate Blood Pressure Pulse Oximetry Oxygen Delivery Fraction of Inspired Oxygen Intake/Output Intake/Output: Intake & Output 07/29/25 07/30/25 07/31/25 08/01/25 23:59 23:59 23:59 23:59 Intake Total 1350 1090 800 880 Output Total 3722 1125 2600 1500 [facility] -2375 -35 -1800 -620 Meds/Results Medications: Active Medications Generic Name Dose Route Start Last Admin Trade Name Freq PRN Reason Stop Dose Admin Acetaminophen 1,000 mg 07/16/25 09:58 07/25/25 13:58 Acetaminophen 500 Mg Tablet PO 1,000 mg Q6H PRN Administration Fever Acetaminophen 500 mg 07/19/25 14:13 07/23/25 15:38 Acetaminophen 500 Mg Tablet PO 500 mg Q6H PRN Administration Pain Rated 1-3 Albuterol/Ipratropium 3 ml 07/17/25 20:40 07/20/25 00:58 Ipratropium 0.5 Mg/Albuterol Sulfate 2.5 Mg Ampul.Neb 3 Ml INHALATION 3 ml Q6HRT PRN Administration wheezing Alteplase, Recombinant 2 mg 07/28/25 23:16 07/28/25 23:41 Alteplase 2 Mg Vial (Cathflo) IV PUSH 2 mg ONCE PRN Administration Line Occlusion Amiodarone HCl 200 mg 07/15/25 02:30 08/01/25 08:53 Amiodarone Hcl 200 Mg Tablet PO 200 mg DAILY SALMA Administration Apixaban 2.5 mg 07/26/25 21:00 08/01/25 08:53 Apixaban 2.5 Mg Tablet PO 2.5 mg Q12HR SALMA Administration Bisacodyl 5 mg 07/22/25 13:35 08/01/25 08:54 Bisacodyl 5 Mg Tablet Ec PO 5 mg QAM SALMA Administration Calcium Acetate 2,001 mg 07/24/25 12:00 08/01/25 08:54 Calcium Acetate 667 Mg Tablet PO 2,001 mg TIDWM SALMA Administration Carvedilol 12.5 mg 07/15/25 09:00 08/01/25 08:53 Carvedilol 12.5 Mg Tablet PO 12.5 mg BID SALMA Administration Dextrose 12.5 gm 07/15/25 01:20 Dextrose 50% 25 Gm/50 Ml Syringe IV PUSH PRN PRN Hypoglycemia Protocol Epoetin Sd-epbx 20,000 units 07/25/25 09:00 07/29/25 11:01 Epoetin Sd-Epbx 20,000 Units/Ml Vial IV PUSH 20,000 units MOWEFR@09 SALMA Administration Glucagon 1 mg 07/15/25 01:20 Glucagon For Inj 1 Mg Vial IM PRN PRN Hypoglycemia Protocol Glucose 15 gm 07/15/25 01:20 Glucose Oral Gel 15 Gm Of Glucse In 37.5 Gm Tube PO PRN PRN Hypoglycemia Protocol Dextrose 1,000 mls @ 100 mls/hr 07/15/25 01:20 Dextrose 5% 1,000 Ml IVPB PRN PRN Hypoglycemia Protocol Albumin Human 50 mls @ 999 mls/hr 07/15/25 15:32 Albutein IVPB 08/14/25 15:31 Q10M PRN HYPOTENSION Daptomycin 800 mg/ Sodium 50 mls @ 100 mls/hr 07/29/25 15:00 07/31/25 15:16 Chloride IVPB 100 mls/hr Q48H SALMA Administration Meropenem 500 mg/ Sodium 100 mls @ 200 mls/hr 07/29/25 14:00 07/31/25 13:35 Chloride IVPB 200 mls/hr Q24H SALMA Administration Insulin Aspart 3 - 6 units 07/15/25 08:00 08/01/25 08:54 Insulin Aspart (*Bkc) 100 Units/Ml SUB-Q Not Given TIDWM [facility] Protocol Insulin Aspart 1 - 3 units 07/15/25 21:00 07/31/25 21:12 Insulin Aspart (*Bkc) 100 Units/Ml SUB-Q Not Given HS [facility] Protocol Magnesium Hydroxide 30 ml 07/16/25 08:39 Magnesium Hydroxide Susp 30 Ml Udc PO DAILY PRN Constipation Miconazole Nitrate 1 applic 07/26/25 14:00 08/01/25 08:55 Miconazole Nitrate 2% Cream 30 Gm Tube TOPICAL 1 applic Q8HR SALMA Administration Miscellaneous Information 1 each 07/28/25 00:01 07/29/25 09:47 Please Renew Hydromorphones And Oxycodone. Per [employer] Procedure, It Will Discontinue If XX 08/27/25 00:00 Not Given CLARIFY SALMA Naloxone HCl 0.1 mg 07/19/25 14:13 Naloxone Hcl 0.4 Mg/Ml Vial IV PUSH Q2M PRN Opiate Reversal Oxycodone HCl 2.5 mg 07/19/25 14:13 08/01/25 06:57 Oxycodone Hcl (*Crx) 2.5 Mg Tab Ir PO 2.5 mg Q4H PRN Administration Pain Rated 4-6 Oxycodone HCl 5 mg 07/19/25 14:13 07/31/25 11:03 Oxycodone Hcl (*Crx) 5 Mg Tab Ir PO 5 mg Q4H PRN Administration Pain Rated 7-10 Polyethylene Glycol 17 gm 07/16/25 09:00 08/01/25 08:54 Polyethylene Glycol 3350 17 Gm Powd.Pack PO 17 gm QAM SALMA Administration Sodium Chloride 10 ml 07/19/25 22:00 08/01/25 08:54 Central Line Flush IV PUSH 10 ml Q8HR SALMA Administration Sodium Chloride 10 ml 07/19/25 17:03 07/24/25 00:32 Central Line Flush IV PUSH 10 ml PRN PRN Administration with TPN bag changes Sodium Chloride 20 ml 07/19/25 17:03 07/31/25 04:59 Central Line Flush IV PUSH 20 ml PRN PRN Administration after blood draws Radiology Results: ITS Impressions Cervical Spine CT 07/15/25 07:00 IMPRESSION: 1. No acute abnormality of the cervical spine. 2: Severe cervical spondylosis. Head CT 07/15/25 07:03 IMPRESSION: 1. No acute intracranial abnormality. Shoulder X-Ray 07/15/25 07:39 Impression: 1: No acute fracture. Wrist X-Ray 07/15/25 07:40 Impression: 1: No acute fracture. Elbow X-Ray 07/15/25 07:41 Impression: 1: No acute fracture. Renal Ultrasound 07/15/25 13:09 Impression: 1: Unremarkable renal ultrasound. No stones, masses or hydronephrosis. Central Venous Line 07/19/25 13:50 IMPRESSION: Fluoroscopy used during portacatheter placement. Scrotum Ultrasound 07/20/25 19:05 IMPRESSION: 1. Diffuse scrotal wall thickening. Consider an infectious/inflammatory process such as cellulitis, lymphedema or systemic causes like cirrhosis, nephrotic syndrome or generalized edema. Soft Tissue Ultrasound 07/20/25 19:10 Impression: 1: Area of superficial venous thrombosis corresponds to the area of left arm swelling. Chest X-Ray 07/22/25 17:19 Impression: 1: Developing left basilar airspace disease, consistent with pneumonia. Labs Labs: Laboratory Results - last 24 hr 07/31/25 07/31/25 07/31/25 12:20 17:02 19:49 WBC RBC Hgb Hct MCV MCH MCHC RDW Plt Count MPV Immature Gran % (Auto) Neut % (Auto) Lymph % (Auto) [place] % (Auto) Eos % (Auto) Baso % (Auto) Lymph # (Auto) [place] # (Auto) Eos # (Auto) Baso # (Auto) Abs Immat Gran (auto) Absolute Neuts (auto) Absolute Nucleated RBC Nucleated RBC % Sodium Potassium Chloride Carbon Dioxide Anion Gap BUN Creatinine Estim Creat Clear Calc Estimated GFR Glucose POC Capillary Glucose 132 H 125 H 142 H Calcium Phosphorus Magnesium Total Bilirubin AST ALT Alkaline Phosphatase Total Protein Albumin 08/01/25 08/01/25 04:44 07:55 WBC 12.1 H RBC 2.76 L Hgb 8.4 L Hct 28.0 L MCV 101.4 H MCH 30.4 MCHC 30.0 L RDW 15.7 H Plt Count 233 MPV 9.4 Immature Gran % (Auto) 0.9 H Neut % (Auto) 80.7 H Lymph % (Auto) 7.4 L [place] % (Auto) 8.8 H Eos % (Auto) 1.8 Baso % (Auto) 0.4 Lymph # (Auto) 0.90 [place] # (Auto) 1.1 H Eos # (Auto) 0.2 Baso # (Auto) 0.1 Abs Immat Gran (auto) 0.11 H Absolute Neuts (auto) 9.8 H Absolute Nucleated RBC 0.000 Nucleated RBC % 0.0 Sodium 132 L Potassium 4.7 Chloride 100 Carbon Dioxide 28 Anion Gap 4 BUN 83 H D Creatinine 4.93 H Estim Creat Clear Calc 24 Estimated GFR 12 L Glucose 139 H POC Capillary Glucose 126 H Calcium 9.8 Phosphorus 5.9 H Magnesium 2.3 Total Bilirubin 0.6 AST 67 H ALT 49 Alkaline Phosphatase 86 Total Protein 5.4 L Albumin 2.7 L
--- NOTE | 2025-08-01 11:21 | PCNFU ---
Nutrition Follow-Up Complete: Increased protein energy needs related to pressure injuries as evidenced by skin breakdown Goal: Adequate PO intake to support wound healing Will continue current goal. Pt current nutrition is Renal Dialysis with diet supplements BID. Last recorded weight is 207.8 kg, up from 190. Dialysis patient. Bowel Motility: Last reported BM 07/30 Labs Reviewed: PO4 5.9, BUN 83, Cr 4.93, Glu 139, Alb 2.7 Meds Noted:NovoLog, PhosLo, Miralax Skin: unstageable right elbow, DTI right thigh. Additional Notes: Patient continues to tolerate Renal Dialysis diet. Diet supplements of Nepro are providing an additional 420 kcal and 19 gm protein. Juancarlos for would healing providing 80 kcal, 2.5 gm protein, 7 gm glutamine and 7 gm arginine. Agree with diet orders. Monitoring intakes, weights, labs, skin, meds, supplement tolerance, plan of care Follow up in 5 days
[2025-08-01] MEDS: oxyCODONE HCL (*CRX) 5 MG TAB IR PO (14:45)
--- NOTE | 2025-08-01 15:01 | PC.NURSE ---
pt to dialysis via bed, IV antibiotic held as it would be dialyzed out of system with treatment
--- NOTE | 2025-08-01 16:00 | PCPTNOTE ---
The patient treatment was not able to be completed due to patient out of room for dialysis. Will plan to continue treatment per plan of care.
--- NOTE | 2025-08-01 16:47 | PM.IMPN ---
Progress Note: A&P Assessment and Plan (1) Actinic keratosis: Code(s): L57.0 - Actinic keratosis Status: Acute (2) Acute kidney injury: Code(s): N17.9 - Acute kidney failure, unspecified Status: Acute (3) Cellulitis of scrotum: Code(s): N49.2 - Inflammatory disorders of scrotum Status: Acute (4) Rhabdomyolysis: Qualifiers: Rhabdomyolysis type: non-traumatic Qualified Code(s): M62.82 - Rhabdomyolysis Code(s): M62.82 - Rhabdomyolysis Status: Acute Plan 69-year-old male with PMH morbid obesity with BMI 59, diastolic heart failure, paroxysmal atrial fibrillation, type 2 diabetes mellitus without current long-term use of insulin, JOSÉ LUIS, hyperlipidemia, hypertension. He was found by family member on the ground with unclear time down. ----- Rhabdomyolysis, resolved. Acute renal failure: Nephrology following. Tunneled dialysis catheter placed Urine output is increasing, serum creatinine waxes and wanes. Having good urine output, status post Lasix. Dialysis again today on 08/01/2025. Appreciate Nephrology recommendations for management of KAITLIN/dialysis/disposition. He has 1+ pitting edema of all 4 extremities. This is improved from prior. Acute hyperkalemia: Resolved. Sepsis on admission as evidenced by tachycardia tachypnea leukocytosis. Blood culture 07/14/2025, no growth, final. Scrotal cellulitis, purulent: Infectious disease, appreciate recommendations. 07/29/2025, change linezolid and Zosyn to meropenem and daptomycin. Last day of micafungin on 07/30/2025. Micafungin cream to scrotal region. Re-culture of purulent drainage on 07/29/2025 from the scrotal area which appears to be coming from the macerated area on the anterior inferior surface of his scrotum. Continuing to improve, follow ID recommendations and repeat scrotal wound culture. Diabetes mellitus: Continue Accu-Cheks a.c. HS with a low-dose insulin sliding scale. Paroxysmal atrial fibrillation on Xarelto: Due to acute renal failure Xarelto has been changed to Eliquis 2.5 mg p.o. b.i.d. continue [employer] amiodarone 200 mg p.o. q.day, continue Coreg Superficial venous thrombosis left upper extremity identified on ultrasound 07/20/2025. Generalized edema 4 extremities has improved yet on 08/01/2025 right upper extremity is much more edematous than the others. Check a venous ultrasound of right upper extremity. Monitor transaminitis Acute anemia: Status post 1 unit PRBC. Continue EPO per Nephrology. Monitor hemoglobin Hyponatremia, stable. Diabetes: Continue Accu-Cheks CPAP nightly for JOSÉ LUIS Diastolic heart failure: Continue Coreg 12.5 mg p.o. b.i.d.. Patient will like to be full code. Pending discharge to skilled facility. Renal dialysis diet. Saline lock IV. PT/OT evaluations ordered. Subjective Date/time seen: 08/01/25 16:47 Interval history: No major acute overnight events. Patient is in good spirits. Denies pain. Review of Systems Review of Systems: All systems reviewed & are unremarkable except as noted in HPI and below (Subjective) Exam Const: General: comfortable and no acute distress Other: Obese. A&O x3 HENMT: Mouth: Yes moist mucous membranes Eyes: Pupils: Equal, round and reactive pupils present Neck: Neck: supple Resp: Effort & Inspection: normal respiratory effort Auscultation: clear to auscultation bilaterally Cardio: Rate: regular rate GI: Inspection: non-distended GI Palp: Yes Soft to palpation : Other: Slight erythema. Dry, no purulence. Extrem: General: edema Objective Data Vital Signs Vital Signs: Vital Signs - 24 hr 07/31/25 20:00 07/31/25 20:00 07/31/25 20:07 Temperature 97.5 F L Pulse Rate 74 75 Respiratory Rate 20 Blood Pressure 111/47 L Pulse Oximetry 91 Oxygen Delivery Room Air Fraction of Inspired Oxygen 21 07/31/25 21:10 08/01/25 00:00 08/01/25 04:00 Temperature Pulse Rate 69 67 Respiratory Rate Blood Pressure Pulse Oximetry 94 Oxygen Delivery Room Air Fraction of Inspired Oxygen 08/01/25 05:02 08/01/25 08:00 08/01/25 08:30 Temperature 98.3 F Pulse Rate 71 65 Respiratory Rate 18 Blood Pressure 135/46 L Pulse Oximetry 92 Oxygen Delivery Room Air Fraction of Inspired Oxygen 08/01/25 08:53 08/01/25 08:53 08/01/25 12:00 Temperature Pulse Rate 68 68 76 Respiratory Rate Blood Pressure Pulse Oximetry Oxygen Delivery Fraction of Inspired Oxygen 08/01/25 13:56 08/01/25 15:00 08/01/25 15:07 Temperature 97.1 F L 97.4 F L Pulse Rate 96 70 72 Respiratory Rate 18 18 Blood Pressure 132/51 L 139/48 L 148/58 H Pulse Oximetry 72 L 99 Oxygen Delivery Fraction of Inspired Oxygen 08/01/25 15:15 08/01/25 15:30 08/01/25 15:45 Temperature Pulse Rate 72 66 65 Respiratory Rate Blood Pressure 138/52 L 135/44 L 136/50 L Pulse Oximetry Oxygen Delivery Fraction of Inspired Oxygen Intake/Output Intake/Output: Intake & Output 07/29/25 07/30/25 07/31/25 08/01/25 23:59 23:59 23:59 23:59 Intake Total 1350 6539 251 4884 Output Total 3725 1125 2600 1500 Balance -2375 -35 -1800 -380 Meds/Results Medications: Active Medications Generic Name Dose Route Start Last Admin Trade Name Freq PRN Reason Stop Dose Admin Acetaminophen 1,000 mg 07/16/25 09:58 07/25/25 13:58 Acetaminophen 500 Mg Tablet PO 1,000 mg Q6H PRN Administration Fever Acetaminophen 500 mg 07/19/25 14:13 07/23/25 15:38 Acetaminophen 500 Mg Tablet PO 500 mg Q6H PRN Administration Pain Rated 1-3 Albuterol/Ipratropium 3 ml 07/17/25 20:40 07/20/25 00:58 Ipratropium 0.5 Mg/Albuterol Sulfate 2.5 Mg Ampul.Neb 3 Ml INHALATION 3 ml Q6HRT PRN Administration wheezing Alteplase, Recombinant 2 mg 07/28/25 23:16 07/28/25 23:41 Alteplase 2 Mg Vial (Cathflo) IV PUSH 2 mg ONCE PRN Administration Line Occlusion Amiodarone HCl 200 mg 07/15/25 02:30 08/01/25 08:53 Amiodarone Hcl 200 Mg Tablet PO 200 mg DAILY SALMA Administration Apixaban 2.5 mg 07/26/25 21:00 08/01/25 08:53 Apixaban 2.5 Mg Tablet PO 2.5 mg Q12HR SALMA Administration Bisacodyl 5 mg 07/22/25 13:35 08/01/25 08:54 Bisacodyl 5 Mg Tablet Ec PO 5 mg QAM SALMA Administration Calcium Acetate 2,001 mg 07/24/25 12:00 08/01/25 12:26 Calcium Acetate 667 Mg Tablet PO 2,001 mg TIDWM SALMA Administration Carvedilol 12.5 mg 07/15/25 09:00 08/01/25 08:53 Carvedilol 12.5 Mg Tablet PO 12.5 mg BID SALMA Administration Dextrose 12.5 gm 07/15/25 01:20 Dextrose 50% 25 Gm/50 Ml Syringe IV PUSH PRN PRN Hypoglycemia Protocol Epoetin Sd-epbx 20,000 units 07/25/25 09:00 07/29/25 11:01 Epoetin Sd-Epbx 20,000 Units/Ml Vial IV PUSH 20,000 units MOWEFR@09 [place]AMA Administration Glucagon 1 mg 07/15/25 01:20 Glucagon For Inj 1 Mg Vial IM PRN PRN Hypoglycemia Protocol Glucose 15 gm 07/15/25 01:20 Glucose Oral Gel 15 Gm Of Glucse In 37.5 Gm Tube PO PRN PRN Hypoglycemia Protocol Dextrose 1,000 mls @ 100 mls/hr 07/15/25 01:20 Dextrose 5% 1,000 Ml IVPB PRN PRN Hypoglycemia Protocol Albumin Human 50 mls @ 999 mls/hr 07/15/25 15:32 Albutein IVPB 08/14/25 15:31 Q10M PRN HYPOTENSION Daptomycin 800 mg/ Sodium 50 mls @ 100 mls/hr 07/29/25 15:00 07/31/25 15:16 Chloride IVPB 100 mls/hr Q48H SALMA Administration Meropenem 500 mg/ Sodium 100 mls @ 200 mls/hr 07/29/25 14:00 07/31/25 13:35 Chloride IVPB 200 mls/hr Q24H SALMA Administration Insulin Aspart 3 - 6 units 07/15/25 08:00 08/01/25 12:28 Insulin Aspart (*Bkc) 100 Units/Ml SUB-Q Not Given TIDWM SALMA Protocol Insulin Aspart 1 - 3 units 07/15/25 21:00 07/31/25 21:12 Insulin Aspart (*Bkc) 100 Units/Ml SUB-Q Not Given HS SALMA Protocol Magnesium Hydroxide 30 ml 07/16/25 08:39 Magnesium Hydroxide Susp 30 Ml Udc PO DAILY PRN Constipation Miconazole Nitrate 1 applic 07/26/25 14:00 08/01/25 08:55 Miconazole Nitrate 2% Cream 30 Gm Tube TOPICAL 1 applic Q8HR SALMA Administration Miscellaneous Information 1 each 07/28/25 00:01 07/29/25 09:47 Please Renew Hydromorphones And Oxycodone. Per [employer] Procedure, It Will Discontinue If XX 08/27/25 00:00 Not Given CLARIFY SALMA Naloxone HCl 0.1 mg 07/19/25 14:13 Naloxone Hcl 0.4 Mg/Ml Vial IV PUSH Q2M PRN Opiate Reversal Oxycodone HCl 2.5 mg 07/19/25 14:13 08/01/25 06:57 Oxycodone Hcl (*Crx) 2.5 Mg Tab Ir PO 2.5 mg Q4H PRN Administration Pain Rated 4-6 Oxycodone HCl 5 mg 07/19/25 14:13 08/01/25 14:45 Oxycodone Hcl (*Crx) 5 Mg Tab Ir PO 5 mg Q4H PRN Administration Pain Rated 7-10 Polyethylene Glycol 17 gm 07/16/25 09:00 08/01/25 08:54 Polyethylene Glycol 3350 17 Gm Powd.Pack PO 17 gm QAM SALMA Administration Sodium Chloride 10 ml 07/19/25 22:00 08/01/25 08:54 Central Line Flush IV PUSH 10 ml Q8HR SALMA Administration Sodium Chloride 10 ml 07/19/25 17:03 07/24/25 00:32 Central Line Flush IV PUSH 10 ml PRN PRN Administration with TPN bag changes Sodium Chloride 20 ml 07/19/25 17:03 07/31/25 04:59 Central Line Flush IV PUSH 20 ml PRN PRN Administration after blood draws Radiology Results: ITS Impressions Cervical Spine CT 07/15/25 07:00 IMPRESSION: 1. No acute abnormality of the cervical spine. 2: Severe cervical spondylosis. Head CT 07/15/25 07:03 IMPRESSION: 1. No acute intracranial abnormality. Shoulder X-Ray 07/15/25 07:39 Impression: 1: No acute fracture. Wrist X-Ray 07/15/25 07:40 Impression: 1: No acute fracture. Elbow X-Ray 07/15/25 07:41 Impression: 1: No acute fracture. Renal Ultrasound 07/15/25 13:09 Impression: 1: Unremarkable renal ultrasound. No stones, masses or hydronephrosis. Central Venous Line 07/19/25 13:50 IMPRESSION: Fluoroscopy used during portacatheter placement. Scrotum Ultrasound 07/20/25 19:05 IMPRESSION: 1. Diffuse scrotal wall thickening. Consider an infectious/inflammatory process such as cellulitis, lymphedema or systemic causes like cirrhosis, nephrotic syndrome or generalized edema. Soft Tissue Ultrasound 07/20/25 19:10 Impression: 1: Area of superficial venous thrombosis corresponds to the area of left arm swelling. Chest X-Ray 07/22/25 17:19 Impression: 1: Developing left basilar airspace disease, consistent with pneumonia. Labs Labs: Laboratory Results - last 24 hr 07/31/25 07/31/25 08/01/25 17:02 19:49 04:44 WBC 12.1 H RBC 2.76 L Hgb 8.4 L Hct 28.0 L MCV 101.4 H MCH 30.4 MCHC 30.0 L RDW 15.7 H Plt Count 233 MPV 9.4 Immature Gran % (Auto) 0.9 H Neut % (Auto) 80.7 H Lymph % (Auto) 7.4 L Smith % (Auto) 8.8 H Eos % (Auto) 1.8 Baso % (Auto) 0.4 Lymph # (Auto) 0.90 Smith # (Auto) 1.1 H Eos # (Auto) 0.2 Baso # (Auto) 0.1 Abs Immat Gran (auto) 0.11 H Absolute Neuts (auto) 9.8 H Absolute Nucleated RBC 0.000 Nucleated RBC % 0.0 Sodium 132 L Potassium 4.7 Chloride 100 Carbon Dioxide 28 Anion Gap 4 BUN 83 H D Creatinine 4.93 H Estim Creat Clear Calc 24 Estimated GFR 12 L Glucose 139 H POC Capillary Glucose 125 H 142 H Calcium 9.8 Phosphorus 5.9 H Magnesium 2.3 Total Bilirubin 0.6 AST 67 H ALT 49 Alkaline Phosphatase 86 Total Protein 5.4 L Albumin 2.7 L 08/01/25 08/01/25 07:55 11:36 WBC RBC Hgb Hct MCV MCH MCHC RDW Plt Count MPV Immature Gran % (Auto) Neut % (Auto) Lymph % (Auto) Smith % (Auto) Eos % (Auto) Baso % (Auto) Lymph # (Auto) Smith # (Auto) Eos # (Auto) Baso # (Auto) Abs Immat Gran (auto) Absolute Neuts (auto) Absolute Nucleated RBC Nucleated RBC % Sodium Potassium Chloride Carbon Dioxide Anion Gap BUN Creatinine Estim Creat Clear Calc Estimated GFR Glucose POC Capillary Glucose 126 H 136 H Calcium Phosphorus Magnesium Total Bilirubin AST ALT Alkaline Phosphatase Total Protein Albumin
--- NOTE | 2025-08-01 17:05 | P.PNNP_ITS ---
Progress Note: A&P Assessment and Plan (1) Acute kidney injury: Code(s): N17.9 - Acute kidney failure, unspecified Status: Acute Assessment and Plan: * acute kidney injury. * as noted by admission labs * progressively worsening as noted by trend of labs since hospitalization began * was also complicated by persistent hyperkalemia unresponsive to medical therapy and declining UOP * baseline creatinine normal: * 1.16mg/dL in October 2024 (by outpatient labs from PCP) * 1.30mg/dL in October 2022 ([facility]) * multifactorial etiology: * rhabdomyolysis * LAURY-I use prior to admission * diuretic use (lasix + spironolactone) prior to admission * prerenal factors(?) * infection/early sepsis(?) * other(?) * evaluation to date noted: * prerenal urine electrolytes * urine eosinophils negative * CPK as already noted * mild proteinuria * renal ultrasound without obstruction * s/p tunneled HD catheter placement (on 07/19/25) * better urine output with IV diuretic challenge * however, noted rise in BUN and creatinine... * HD today with no fluid removal * follow trend of repeal labs and UOP for potential renal recovery... (2) Hyperkalemia: Code(s): E87.5 - Hyperkalemia Status: Acute Assessment and Plan: * resolved (3) Rhabdomyolysis: Code(s): M62.82 - Rhabdomyolysis Status: Acute Assessment and Plan: * resolved (4) Leukocytosis: Qualifiers: Leukocytosis type: unspecified Qualified Code(s): D72.829 - Elevated white blood cell count, unspecified Code(s): D72.829 - Elevated white blood cell count, unspecified Status: Acute Assessment and Plan: * slow improvement * initial concern was sepsis given associated lactic acidosis, tachycardia, tachypnea on admission * Infectious Disease following with recommendations noted * potential sources noted: * scrotal cellulitis * right arm hematoma * constipation * pneumonia * tinea cruris * elevated CPK * on antibiotics/antifungals as outlined * cultures negative so far (5) Anemia: Code(s): D64.9 - Anemia, unspecified Status: Acute Assessment and Plan: * due to previous IVF hydration, KAITLIN/ARF, and trauma/hematomas * Epogen with HD * follow trend of of H/H (6) Hyponatremia: Code(s): E87.1 - Hypo-osmolality and hyponatremia Status: Acute Assessment and Plan: * acute (on chronic?) * noted as far back as October 2022 * however, on PCP labs in October 2024, sodium was 138mmol/L * suspect due more related to KAITLIN/ARF and diminished urine output/anuria (dilutional) * TSH and cortisol okay * dialysis helping to correct to some degree (7) Atrial fibrillation and flutter: Code(s): I48.91 - Unspecified atrial fibrillation; I48.92 - Unspecified atrial flutter Status: Chronic Assessment and Plan: * paroxysmal in nature * on amiodarone * on Eliquis (8) Transaminitis: Code(s): R74.01 - Elevation of levels of liver transaminase levels Status: Acute Assessment and Plan: * resolved (9) Hypertension: Code(s): I10 - Essential (primary) hypertension Status: Chronic Assessment and Plan: * reasonable control * follow trend of hemodynamics (10) Diabetes: Code(s): E11.9 - Type 2 diabetes mellitus without complications Status: Chronic Assessment and Plan: * follow accu-cheks * glycemic control per hospitalist Will continue to follow. L Subjective Date/time seen: 08/01/25 17:05 Interval history: Follow-up for acute kidney injury/acute renal failure requiring [employer]/hemodialysis Chart reviewed since last seen -- tolerating dialysis treatment at the time of my visit (seen on HD at 4:55pm); no apparent distress noted when seen; noted increase in urine output with IV diuretic use so limiting fluid removal with HD treatment today. Exam 2 Narrative: General: elderly but large and WD/WN male in NAD Heart: normal S1 and S2; no rub Lungs: clear anteriorly Abdomen: soft, nontender, nondistended, positive bowel sounds Extremities: no cyanosis or clubbing; trace - 1+ edema (upper and lower extremities) Skin: venous stasis changes over BLEs; chronic actinic changes in UEs Objective Data Vital Signs Vital Signs: Vital Signs Temp Pulse Resp BP Pulse Ox O2 Del Method FiO2 08/01/25 17:00 68 129/49 L 08/01/25 16:45 67 131/46 L 08/01/25 16:30 66 121/47 L 08/01/25 16:15 65 118/52 L 08/01/25 16:00 66 08/01/25 16:00 67 119/48 L 08/01/25 15:45 65 136/50 L 08/01/25 15:30 66 135/44 L 08/01/25 15:15 72 138/52 L 08/01/25 15:07 72 148/58 H 08/01/25 15:00 97.4 F L 70 18 139/48 L 99 08/01/25 13:56 97.1 F L 96 18 132/51 L 72 L 08/01/25 12:00 76 08/01/25 08:53 68 08/01/25 08:53 68 08/01/25 08:30 Room Air 08/01/25 08:00 65 08/01/25 05:02 98.3 F 71 18 135/46 L 92 08/01/25 04:00 67 08/01/25 00:00 69 07/31/25 21:10 94 Room Air 07/31/25 20:07 97.5 F L 75 20 111/47 L 91 07/31/25 20:00 74 07/31/25 20:00 Room Air 21 Intake/Output Intake/Output: Intake & Output 07/29/25 07/30/25 07/31/25 08/01/25 23:59 23:59 23:59 23:59 Intake Total 1350 8841 424 2168 Output Total 3725 1125 2600 1500 [facility] -2375 -35 -1700 -380 Meds/Results Medications: Active Medications Generic Name Dose Route Start Last Admin Trade Name Igor PRN Reason Stop Dose Admin Acetaminophen 1,000 mg 07/16/25 09:58 07/25/25 13:58 Acetaminophen 500 Mg Tablet PO 1,000 mg Q6H PRN Administration Fever Acetaminophen 500 mg 07/19/25 14:13 07/23/25 15:38 Acetaminophen 500 Mg Tablet PO 500 mg Q6H PRN Administration Pain Rated 1-3 Albuterol/Ipratropium 3 ml 07/17/25 20:40 07/20/25 00:58 Ipratropium 0.5 Mg/Albuterol Sulfate 2.5 Mg Ampul.Neb 3 Ml INHALATION 3 ml Q6HRT PRN Administration wheezing Alteplase, Recombinant 2 mg 07/28/25 23:16 07/28/25 23:41 Alteplase 2 Mg Vial (Cathflo) IV PUSH 2 mg ONCE PRN Administration Line Occlusion Amiodarone HCl 200 mg 07/15/25 02:30 08/01/25 08:53 Amiodarone Hcl 200 Mg Tablet PO 200 mg DAILY SALMA Administration Apixaban 2.5 mg 07/26/25 21:00 08/01/25 08:53 Apixaban 2.5 Mg Tablet PO 2.5 mg Q12HR SALMA Administration Bisacodyl 5 mg 07/22/25 13:35 08/01/25 08:54 Bisacodyl 5 Mg Tablet Ec PO 5 mg QAM SALMA Administration Calcium Acetate 2,001 mg 07/24/25 12:00 08/01/25 19:02 Calcium Acetate 667 Mg Tablet PO 2,001 mg TIDWM SALMA Administration Carvedilol 12.5 mg 07/15/25 09:00 08/01/25 19:02 Carvedilol 12.5 Mg Tablet PO 12.5 mg BID SALMA Administration Dextrose 12.5 gm 07/15/25 01:20 Dextrose 50% 25 Gm/50 Ml Syringe IV PUSH PRN PRN Hypoglycemia Protocol Epoetin Sd-epbx 20,000 units 07/25/25 09:00 08/01/25 17:20 Epoetin Sd-Epbx 20,000 Units/Ml Vial IV PUSH 20,000 units MOWEFR@09 SALMA Administration Glucagon 1 mg 07/15/25 01:20 Glucagon For Inj 1 Mg Vial IM PRN PRN Hypoglycemia Protocol Glucose 15 gm 07/15/25 01:20 Glucose Oral Gel 15 Gm Of Glucse In 37.5 Gm Tube PO PRN PRN Hypoglycemia Protocol Dextrose 1,000 mls @ 100 mls/hr 07/15/25 01:20 Dextrose 5% 1,000 Ml IVPB PRN PRN Hypoglycemia Protocol Albumin Human 50 mls @ 999 mls/hr 07/15/25 15:32 Albutein IVPB 08/14/25 15:31 Q10M PRN HYPOTENSION Daptomycin 800 mg/ Sodium 50 mls @ 100 mls/hr 07/29/25 15:00 07/31/25 15:16 Chloride IVPB 100 mls/hr Q48H SALMA Administration Meropenem 500 mg/ Sodium 100 mls @ 200 mls/hr 07/29/25 14:00 08/01/25 19:03 Chloride IVPB 200 mls/hr Q24H SALMA Administration Insulin Aspart 3 - 6 units 07/15/25 08:00 08/01/25 12:28 Insulin Aspart (*Bkc) 100 Units/Ml SUB-Q Not Given TIDWM [facility] Protocol Insulin Aspart 1 - 3 units 07/15/25 21:00 07/31/25 21:12 Insulin Aspart (*Bkc) 100 Units/Ml SUB-Q Not Given HS [facility] Protocol Magnesium Hydroxide 30 ml 07/16/25 08:39 Magnesium Hydroxide Susp 30 Ml Udc PO DAILY PRN Constipation Miconazole Nitrate 1 applic 07/26/25 14:00 08/01/25 19:03 Miconazole Nitrate 2% Cream 30 Gm Tube TOPICAL 1 applic Q8HR SALMA Administration Miscellaneous Information 1 each 07/28/25 00:01 07/29/25 09:47 Please Renew Hydromorphones And Oxycodone. Per [employer] Procedure, It Will Discontinue If XX 08/27/25 00:00 Not Given CLARIFY SALMA Naloxone HCl 0.1 mg 07/19/25 14:13 Naloxone Hcl 0.4 Mg/Ml Vial IV PUSH Q2M PRN Opiate Reversal Oxycodone HCl 2.5 mg 07/19/25 14:13 08/01/25 06:57 Oxycodone Hcl (*Crx) 2.5 Mg Tab Ir PO 2.5 mg Q4H PRN Administration Pain Rated 4-6 Oxycodone HCl 5 mg 07/19/25 14:13 08/01/25 14:45 Oxycodone Hcl (*Crx) 5 Mg Tab Ir PO 5 mg Q4H PRN Administration Pain Rated 7-10 Polyethylene Glycol 17 gm 07/16/25 09:00 08/01/25 08:54 Polyethylene Glycol 3350 17 Gm Powd.Pack PO 17 gm QAM SALMA Administration Sodium Chloride 10 ml 07/19/25 22:00 08/01/25 19:03 Central Line Flush IV PUSH 10 ml Q8HR SALMA Administration Sodium Chloride 10 ml 07/19/25 17:03 07/24/25 00:32 Central Line Flush IV PUSH 10 ml PRN PRN Administration with TPN bag changes Sodium Chloride 20 ml 07/19/25 17:03 07/31/25 04:59 Central Line Flush IV PUSH 20 ml PRN PRN Administration after blood draws Radiology Results: ITS Impressions Cervical Spine CT 07/15/25 07:00 IMPRESSION: 1. No acute abnormality of the cervical spine. 2: Severe cervical spondylosis. Head CT 07/15/25 07:03 IMPRESSION: 1. No acute intracranial abnormality. Shoulder X-Ray 07/15/25 07:39 Impression: 1: No acute fracture. Wrist X-Ray 07/15/25 07:40 Impression: 1: No acute fracture. Elbow X-Ray 07/15/25 07:41 Impression: 1: No acute fracture. Renal Ultrasound 07/15/25 13:09 Impression: 1: Unremarkable renal ultrasound. No stones, masses or hydronephrosis. Central Venous Line 07/19/25 13:50 IMPRESSION: Fluoroscopy used during portacatheter placement. Scrotum Ultrasound 07/20/25 19:05 IMPRESSION: 1. Diffuse scrotal wall thickening. Consider an infectious/inflammatory process such as cellulitis, lymphedema or systemic causes like cirrhosis, nephrotic syndrome or generalized edema. Soft Tissue Ultrasound 07/20/25 19:10 Impression: 1: Area of superficial venous thrombosis corresponds to the area of left arm swelling. Chest X-Ray 07/22/25 17:19 Impression: 1: Developing left basilar airspace disease, consistent with pneumonia. Labs Labs: Laboratory Tests 08/01/25 04:44 08/01/25 04:44 Calcium 9.8 Phosphorus 5.9 H Magnesium 2.3 Total Bilirubin 0.6 AST 67 H ALT 49 Alkaline Phosphatase 86 Total Protein 5.4 L Albumin 2.7 L Microbiology 07/29/25 14:00 Scrotum Aerobic Culture - Final
[2025-08-01] MEDS: EPOETIN ALFA-EPBX 20,000 UNITS/ML VIAL 20000 UNITS IV PUSH (17:20)
[2025-08-01] MEDS: SODIUM CHLORIDE 0.9% IV 1,000 ML 999 ML IV CONT (17:23)
--- NOTE | 2025-08-01 18:45 | PC.NURSE ---
pt returned from dialysis doing well, meds caught up per orders
[2025-08-01] MEDS: MEROPENEM 500 MG in SODIUM CHLORIDE 0.9% IV 100 ML 200 ML IVPB (19:03)
[2025-08-02] VITALS (12 sets, daily range): BP systolic 109–144; BP diastolic 43–50; PULSE 37–84; RESP 18–20; TEMP 36.6–37.3; O2SAT 91–93; BMI 10.0
[2025-08-02] MEDS: oxyCODONE HCL (*CRX) 5 MG TAB IR PO (05:21)
[2025-08-02] MEDS: MICONAZOLE NITRATE 2% CREAM 30 GM TUBE 1 APPLIC TOPICAL ×3 (05:23→21:40)
[2025-08-02] MEDS: CENTRAL LINE FLUSH 10 ML IV PUSH ×3 (05:23→21:40)
[2025-08-02 05:24] LABS: Hematocrit 27.5 % (42.0-52.0); Hemoglobin 8.5 g/dL (14.0-18.0); Immature Granulocyte Percent A 0.9 % (0-0.5); Lymphocytes Absolute Auto 0.94 K/mm3 (0.9-3.2); Mean Corpuscular HGB Conc 30.9 g/dl (32-36); Mean Corpuscular Hemoglobin 31.1 pg (26-34); Mean Corpuscular Volume 100.7 fl (80-100); Nucleated Red Blood Cells Absolute Auto 0.000 K/mm3 (0.0-0.012); Nucleated Red Blood Cells Perc 0.0 % (0.0-0.2); Platelet Count Result 214 k/mm3 (150-375); Red Blood Count 2.73 M/mm3 (4.6-6.20); White Blood Count 10.2 K/mm3 (4.5-10.0)
--- NOTE | 2025-08-02 06:00 | PC.NURSE ---
Unable to obtain patient weight due to bed-scale needed zero out. Passed on noticed to recieving nurse LISA Vu to obtain weight if patient gets out of bed with therapy.
[2025-08-02 06:07] LABS: Alanine Aminotransferase 54 U/L (6-50); Albumin Level 2.7 g/dL (3.5-5.1); Alkaline Phosphatase 90 U/L (38-126); Anion Gap 4 mmol/L (4-12); Aspartate Amino Transferase 69 U/L (17-59); Bilirubin,Total 0.6 mg/dL (0.2-1.3); Blood Urea Nitrogen 55 mg/dL (9-20); Calcium 9.2 mg/dL (8.4-10.2); Carbon Dioxide 32 mmol/L (22-30); Chloride 97 mmol/L (98-107); Estimated CRCL calculation 40 ml/min; Estimated Glomerular Filt Rate 21; Glucose 130 mg/dL (65-110); Magnesium 2.0 mg/dL (1.6-2.3); Potassium 4.3 mmol/L (3.4-5.0); Sodium 133 mmol/L (137-145); Total Protein 5.4 g/dL (6.3-8.2)
[2025-08-02] MEDS: CALCIUM ACETATE 667 MG TABLET 2001 MG PO ×3 (09:15→18:08)
[2025-08-02] MEDS: AMIODARONE HCL 200 MG TABLET PO (09:15)
[2025-08-02] MEDS: APIXABAN 2.5 MG TABLET PO ×2 (09:16→20:36)
[2025-08-02] MEDS: BISACODYL 5 MG TABLET EC PO (09:16)
--- NOTE | 2025-08-02 09:46 | P.PNINF_ITS ---
Progress Note: A&P Assessment and Plan (1) Leukocytosis: Qualifiers: Leukocytosis type: unspecified Qualified Code(s): D72.829 - Elevated white blood cell count, unspecified Code(s): D72.829 - Elevated white blood cell count, unspecified Status: Acute (2) Cellulitis of scrotum: Code(s): N49.2 - Inflammatory disorders of scrotum Status: Acute (3) Hematoma of right upper extremity: Code(s): S40.021A - Contusion of right upper arm, initial encounter Status: Acute (4) Anemia: Code(s): D64.9 - Anemia, unspecified Status: Acute (5) Rhabdomyolysis: Qualifiers: Rhabdomyolysis type: non-traumatic Qualified Code(s): M62.82 - Rhabdomyolysis Code(s): M62.82 - Rhabdomyolysis Status: Acute (6) Acute kidney injury: Code(s): N17.9 - Acute kidney failure, unspecified Status: Acute (7) Transaminitis: Code(s): R74.01 - Elevation of levels of liver transaminase levels Status: Acute (8) Chronic hyponatremia: Code(s): E87.1 - Hypo-osmolality and hyponatremia Status: Acute (9) Hyperkalemia: Code(s): E87.5 - Hyperkalemia Status: Acute (10) Constipation: Code(s): K59.00 - Constipation, unspecified Status: Acute Plan ASSESSMENT: 1. scrotal cellulitis-- original and repeat cx unrevealing 2. morbid obesity 3. KAITLIN 4. rhabdomyolysis, resolved 5. leukocytosis--multifactorial; WBC overall improved. 6. RUE hematoma. No DVT. For 7. ?pneumonia RECOMMENDATIONS Continue meropenem and daptomycin, day 4 of 5-7. If repeat scrotal wound culture on in lightening anticipate discontinuation of antibiotics. miconazole cream to scrotal region blood cxs 07/14 neg and final Pt was seen via video telehealth consultation with the assistance of staff, art, data and patient independently reviewed. Patient was located at [facility] while I was located in my [place] office. Received verbal consent from patient. Subjective Date/time seen: 08/02/25 09:46 Interval history: 08/01/2025: Afebrile and vital signs stable. White blood cell count remains low at 12.1. 07/29 scrotal wound culture remains pending. States he is feeling better. 08/02/2025: Afebrile vital signs stable. White blood cell count has improved further to 10.2. BUN 55 and creatinine 2.93. Venous Doppler study of right upper extremity negative for clots. Repeat scrotal aerobic culture unremarka ble; anaerobic pending. States he continues to feel better. Scrotal wound culture 07/29: Aerobic finalized as mixed tara with numerous Gram-negative rods. Anaerobic culture pending. Meropenem 500 mg IV Q 24 hours 07/29-- Daptomycin 800 mg IV Q 48 hours 07/29-- Review of Systems Review of Systems: Denies diarrhea and rash. All systems reviewed & are unremarkable except as noted in HPI and below Exam Narrative: Awake and alert. NAD, non-toxic, on room air. Right greater than left extremity edema. Objective Data Vital Signs Vital Signs: Vital Signs - 24 hr 08/01/25 12:00 08/01/25 13:56 08/01/25 15:00 Temperature 97.1 F L 97.4 F L Pulse Rate 76 96 70 Respiratory Rate 18 18 Blood Pressure 132/51 L 139/48 L Pulse Oximetry 72 L 99 Oxygen Delivery Fraction of Inspired Oxygen 08/01/25 15:07 08/01/25 15:15 08/01/25 15:30 Temperature Pulse Rate 72 72 66 Respiratory Rate Blood Pressure 148/58 H 138/52 L 135/44 L Pulse Oximetry Oxygen Delivery Fraction of Inspired Oxygen 08/01/25 15:45 08/01/25 16:00 08/01/25 16:00 Temperature Pulse Rate 65 67 66 Respiratory Rate Blood Pressure 136/50 L 119/48 L Pulse Oximetry Oxygen Delivery Fraction of Inspired Oxygen 08/01/25 16:15 08/01/25 16:30 08/01/25 16:45 Temperature Pulse Rate 65 66 67 Respiratory Rate Blood Pressure 118/52 L 121/47 L 131/46 L Pulse Oximetry Oxygen Delivery Fraction of Inspired Oxygen 08/01/25 17:00 08/01/25 17:15 08/01/25 17:30 Temperature Pulse Rate 68 68 68 Respiratory Rate Blood Pressure 129/49 L 131/50 L 133/54 L Pulse Oximetry Oxygen Delivery Fraction of Inspired Oxygen 08/01/25 17:45 08/01/25 18:00 08/01/25 18:15 Temperature Pulse Rate 71 66 69 Respiratory Rate Blood Pressure 138/49 L 140/45 L 136/47 L Pulse Oximetry Oxygen Delivery Fraction of Inspired Oxygen 08/01/25 18:30 08/01/25 18:37 08/01/25 18:44 Temperature 98.6 F Pulse Rate 70 75 72 Respiratory Rate 18 Blood Pressure 145/47 H 146/50 H 131/46 L Pulse Oximetry 99 Oxygen Delivery Fraction of Inspired Oxygen 08/01/25 19:02 08/01/25 19:46 08/01/25 20:00 Temperature 97.9 F Pulse Rate 75 74 Respiratory Rate 17 Blood Pressure 142/46 H Pulse Oximetry 94 Oxygen Delivery Room Air Fraction of Inspired Oxygen 21 08/01/25 20:00 08/02/25 00:00 08/02/25 04:00 Temperature Pulse Rate 77 71 73 Respiratory Rate Blood Pressure Pulse Oximetry Oxygen Delivery Fraction of Inspired Oxygen 08/02/25 04:53 08/02/25 09:14 08/02/25 09:15 Temperature 98.2 F Pulse Rate 73 74 74 Respiratory Rate 18 Blood Pressure 127/43 L Pulse Oximetry 92 Oxygen Delivery Fraction of Inspired Oxygen Intake/Output Intake/Output: Intake & Output 07/30/25 07/31/25 08/01/25 08/02/25 23:59 23:59 23:59 23:59 Intake Total 6608 579 6322 Output Total 1125 2600 1500 650 Balance -35 -1700 -280 -650 Meds/Results Medications: Active Medications Generic Name Dose Route Start Last Admin Trade Name Freq PRN Reason Stop Dose Admin Acetaminophen 1,000 mg 07/16/25 09:58 07/25/25 13:58 Acetaminophen 500 Mg Tablet PO 1,000 mg Q6H PRN Administration Fever Acetaminophen 500 mg 07/19/25 14:13 07/23/25 15:38 Acetaminophen 500 Mg Tablet PO 500 mg Q6H PRN Administration Pain Rated 1-3 Albuterol/Ipratropium 3 ml 07/17/25 20:40 07/20/25 00:58 Ipratropium 0.5 Mg/Albuterol Sulfate 2.5 Mg Ampul.Neb 3 Ml INHALATION 3 ml Q6HRT PRN Administration wheezing Alteplase, Recombinant 2 mg 07/28/25 23:16 07/28/25 23:41 Alteplase 2 Mg Vial (Cathflo) IV PUSH 2 mg ONCE PRN Administration Line Occlusion Amiodarone HCl 200 mg 07/15/25 02:30 08/02/25 09:15 Amiodarone Hcl 200 Mg Tablet PO 200 mg DAILY SALMA Administration Apixaban 2.5 mg 07/26/25 21:00 08/02/25 09:16 Apixaban 2.5 Mg Tablet PO 2.5 mg Q12HR SALMA Administration Bisacodyl 5 mg 07/22/25 13:35 08/02/25 09:16 Bisacodyl 5 Mg Tablet Ec PO 5 mg QAM SALMA Administration Calcium Acetate 2,001 mg 07/24/25 12:00 08/02/25 09:15 Calcium Acetate 667 Mg Tablet PO 2,001 mg TIDWM SALMA Administration Carvedilol 12.5 mg 07/15/25 09:00 08/02/25 09:14 Carvedilol 12.5 Mg Tablet PO 12.5 mg BID SALMA Administration Dextrose 12.5 gm 07/15/25 01:20 Dextrose 50% 25 Gm/50 Ml Syringe IV PUSH PRN PRN Hypoglycemia Protocol Epoetin Sd-epbx 20,000 units 07/25/25 09:00 08/01/25 17:20 Epoetin Sd-Epbx 20,000 Units/Ml Vial IV PUSH 20,000 units MOWEFR@09 SALMA Administration Glucagon 1 mg 07/15/25 01:20 Glucagon For Inj 1 Mg Vial IM PRN PRN Hypoglycemia Protocol Glucose 15 gm 07/15/25 01:20 Glucose Oral Gel 15 Gm Of Glucse In 37.5 Gm Tube PO PRN PRN Hypoglycemia Protocol Dextrose 1,000 mls @ 100 mls/hr 07/15/25 01:20 Dextrose 5% 1,000 Ml IVPB PRN PRN Hypoglycemia Protocol Albumin Human 50 mls @ 999 mls/hr 07/15/25 15:32 Albutein IVPB 08/14/25 15:31 Q10M PRN HYPOTENSION Daptomycin 800 mg/ Sodium 50 mls @ 100 mls/hr 07/29/25 15:00 07/31/25 15:16 Chloride IVPB 100 mls/hr Q48H SALMA Administration Meropenem 500 mg/ Sodium 100 mls @ 200 mls/hr 07/29/25 14:00 08/01/25 19:33 Chloride IVPB Infused Q24H [facility] Infusion Insulin Aspart 3 - 6 units 07/15/25 08:00 08/02/25 08:23 Insulin Aspart (*Bkc) 100 Units/Ml SUB-Q Not Given TIDWM [facility] Protocol Insulin Aspart 1 - 3 units 07/15/25 21:00 08/01/25 20:17 Insulin Aspart (*Bkc) 100 Units/Ml SUB-Q Not Given HS [facility] Protocol Magnesium Hydroxide 30 ml 07/16/25 08:39 Magnesium Hydroxide Susp 30 Ml Udc PO DAILY PRN Constipation Miconazole Nitrate 1 applic 07/26/25 14:00 08/02/25 05:23 Miconazole Nitrate 2% Cream 30 Gm Tube TOPICAL 1 applic Q8HR SALMA Administration Miscellaneous Information 1 each 07/28/25 00:01 07/29/25 09:47 Please Renew Hydromorphones And Oxycodone. Per [employer] Procedure, It Will Discontinue If XX 08/27/25 00:00 Not Given CLARIFY SALMA Naloxone HCl 0.1 mg 07/19/25 14:13 Naloxone Hcl 0.4 Mg/Ml Vial IV PUSH Q2M PRN Opiate Reversal Oxycodone HCl 2.5 mg 07/19/25 14:13 08/01/25 06:57 Oxycodone Hcl (*Crx) 2.5 Mg Tab Ir PO 2.5 mg Q4H PRN Administration Pain Rated 4-6 Oxycodone HCl 5 mg 07/19/25 14:13 08/02/25 05:21 Oxycodone Hcl (*Crx) 5 Mg Tab Ir PO 5 mg Q4H PRN Administration Pain Rated 7-10 Polyethylene Glycol 17 gm 07/16/25 09:00 08/02/25 09:16 Polyethylene Glycol 3350 17 Gm Powd.Pack PO 17 gm QAM SALMA Administration Sodium Chloride 10 ml 07/19/25 22:00 08/02/25 05:23 Central Line Flush IV PUSH 10 ml Q8HR SALMA Administration Sodium Chloride 10 ml 07/19/25 17:03 07/24/25 00:32 Central Line Flush IV PUSH 10 ml PRN PRN Administration with TPN bag changes Sodium Chloride 20 ml 07/19/25 17:03 07/31/25 04:59 Central Line Flush IV PUSH 20 ml PRN PRN Administration after blood draws Radiology Results: ITS Impressions Cervical Spine CT 07/15/25 07:00 IMPRESSION: 1. No acute abnormality of the cervical spine. 2: Severe cervical spondylosis. Head CT 07/15/25 07:03 IMPRESSION: 1. No acute intracranial abnormality. Shoulder X-Ray 07/15/25 07:39 Impression: 1: No acute fracture. Wrist X-Ray 07/15/25 07:40 Impression: 1: No acute fracture. Elbow X-Ray 07/15/25 07:41 Impression: 1: No acute fracture. Renal Ultrasound 07/15/25 13:09 Impression: 1: Unremarkable renal ultrasound. No stones, masses or hydronephrosis. Central Venous Line 07/19/25 13:50 IMPRESSION: Fluoroscopy used during portacatheter placement. Scrotum Ultrasound 07/20/25 19:05 IMPRESSION: 1. Diffuse scrotal wall thickening. Consider an infectious/inflammatory process such as cellulitis, lymphedema or systemic causes like cirrhosis, nephrotic syndrome or generalized edema. Soft Tissue Ultrasound 07/20/25 19:10 Impression: 1: Area of superficial venous thrombosis corresponds to the area of left arm swelling. Chest X-Ray 07/22/25 17:19 Impression: 1: Developing left basilar airspace disease, consistent with pneumonia. Venous Doppler Study 08/02/25 07:56 IMPRESSION: 1. Patent right upper extremity veins. No evidence of venous thrombosis. Labs Labs: Laboratory Results - last 24 hr 08/01/25 08/01/25 08/02/25 11:36 19:43 05:15 WBC 10.2 H RBC 2.73 L Hgb 8.5 L Hct 27.5 L MCV 100.7 H MCH 31.1 MCHC 30.9 L RDW 15.8 H Plt Count 214 MPV 9.3 Immature Gran % (Auto) 0.9 H Neut % (Auto) 78.8 H Lymph % (Auto) 9.2 L Swift % (Auto) 8.9 H Eos % (Auto) 1.7 Baso % (Auto) 0.5 Lymph # (Auto) 0.94 Swift # (Auto) 0.9 H Eos # (Auto) 0.2 Baso # (Auto) 0.1 Abs Immat Gran (auto) 0.09 H Absolute Neuts (auto) 8.0 H Absolute Nucleated RBC 0.000 Nucleated RBC % 0.0 Sodium 133 L Potassium 4.3 Chloride 97 L Carbon Dioxide 32 H Anion Gap 4 BUN 55 H D Creatinine 2.93 H Estim Creat Clear Calc 40 Estimated GFR 21 L Glucose 130 H POC Capillary Glucose 136 H 128 H Calcium 9.2 Magnesium 2.0 Total Bilirubin 0.6 Direct Bilirubin 0.0 AST 69 H ALT 54 H Alkaline Phosphatase 90 Total Protein 5.4 L Albumin 2.7 L 08/02/25 07:43 WBC RBC Hgb Hct MCV MCH MCHC RDW Plt Count MPV Immature Gran % (Auto) Neut % (Auto) Lymph % (Auto) Swift % (Auto) Eos % (Auto) Baso % (Auto) Lymph # (Auto) Swift # (Auto) Eos # (Auto) Baso # (Auto) Abs Immat Gran (auto) Absolute Neuts (auto) Absolute Nucleated RBC Nucleated RBC % Sodium Potassium Chloride Carbon Dioxide Anion Gap BUN Creatinine Estim Creat Clear Calc Estimated GFR Glucose POC Capillary Glucose 121 H Calcium Magnesium Total Bilirubin Direct Bilirubin AST ALT Alkaline Phosphatase Total Protein Albumin
--- NOTE | 2025-08-02 11:35 | P.PNNP_ITS ---
Progress Note: A&P Assessment and Plan (1) Acute kidney injury: Code(s): N17.9 - Acute kidney failure, unspecified Status: Acute Assessment and Plan: * as noted by admission labs * progressively worsening as noted by trend of labs since hospitalization began * was also complicated by persistent hyperkalemia unresponsive to medical therapy and declining UOP * baseline creatinine normal: * 1.16mg/dL in October 2024 (by outpatient labs from PCP) * 1.30mg/dL in October 2022 ([facility]) * multifactorial etiology: * rhabdomyolysis * LAURY-I use prior to admission * diuretic use (lasix + spironolactone) prior to admission * prerenal factors(?) * infection/early sepsis(?) * other(?) * evaluation to date noted: * prerenal urine electrolytes * urine eosinophils negative * CPK as already noted * mild proteinuria * renal ultrasound without obstruction * s/p tunneled HD catheter placement (on 07/19/25) * making good urine output without diuretic therapy * possible renal recovery??? * consider holding dialysis tomorrow depending on AM labs * continue to follow trend of repeal labs and UOP for potential renal recovery (2) Leukocytosis: Qualifiers: Leukocytosis type: unspecified Qualified Code(s): D72.829 - Elevated white blood cell count, unspecified Code(s): D72.829 - Elevated white blood cell count, unspecified Status: Acute Assessment and Plan: * slow improvement * initial concern was sepsis given associated lactic acidosis, tachycardia, tachypnea on admission * Infectious Disease following with recommendations noted * potential sources noted: * scrotal cellulitis * right arm hematoma * constipation * pneumonia * tinea cruris * elevated CPK * on antibiotics/antifungals as outlined * cultures negative so far (3) Anemia: Code(s): D64.9 - Anemia, unspecified Status: Acute Assessment and Plan: * due to previous IVF hydration, KAITLIN/ARF, and trauma/hematomas * Epogen with HD * follow trend of of H/H (4) Hyponatremia: Code(s): E87.1 - Hypo-osmolality and hyponatremia Status: Acute Assessment and Plan: * acute (on chronic?) * noted as far back as October 2022 * however, on PCP labs in October 2024, sodium was 138mmol/L * suspect due more related to KAITLIN/ARF and diminished urine output/anuria (dilutional) * TSH and cortisol okay * dialysis helping to correct to some degree (5) Atrial fibrillation and flutter: Code(s): I48.91 - Unspecified atrial fibrillation; I48.92 - Unspecified atrial flutter Status: Chronic Assessment and Plan: * paroxysmal in nature * on amiodarone * on Eliquis (6) Transaminitis: Code(s): R74.01 - Elevation of levels of liver transaminase levels Status: Acute Assessment and Plan: * resolved (7) Hypertension: Code(s): I10 - Essential (primary) hypertension Status: Chronic Assessment and Plan: * reasonable control * follow trend of hemodynamics (8) Diabetes: Code(s): E11.9 - Type 2 diabetes mellitus without complications Status: Chronic Assessment and Plan: * follow accu-cheks * glycemic control per hospitalist Will continue to follow. L Subjective Date/time seen: 08/02/25 11:35 Interval history: Follow-up for acute kidney injury/acute renal failure requiring [employer]/hemodialysis Tolerated dialysis yesterday without any issues or problems; still making good urine output at this time without the use of diuretic therapy; no apparent distress noted at the time of my visit; no apparent distrtess noted. Exam 2 Narrative: General: elderly but large and WD/WN male in NAD Heart: normal S1 and S2; no rub Lungs: clear anteriorly Abdomen: soft, nontender, nondistended, positive bowel sounds Extremities: no cyanosis or clubbing; trace edema (upper and lower extremities) Skin: venous stasis changes over BLEs; chronic actinic changes in UEs Objective Data Vital Signs Vital Signs: Vital Signs Temp Pulse Resp BP Pulse Ox O2 Del Method FiO2 08/02/25 10:57 Room Air 08/02/25 09:15 74 08/02/25 09:14 74 08/02/25 08:00 70 08/02/25 04:53 98.2 F 73 18 127/43 L 92 08/02/25 04:00 73 08/02/25 00:00 71 08/01/25 20:00 77 08/01/25 20:00 Room Air 21 08/01/25 19:46 97.9 F 74 17 142/46 H 94 08/01/25 19:02 75 08/01/25 18:44 98.6 F 72 18 131/46 L 99 Intake/Output Intake/Output: Intake & Output 07/30/25 07/31/25 08/01/25 08/02/25 23:59 23:59 23:59 23:59 Intake Total 8682 734 1080 1370 Output Total 1125 2600 1500 1750 Balance -52 -1650 -280 -380 Meds/Results Medications: Active Medications Generic Name Dose Route Start Last Admin Trade Name Igor PRN Reason Stop Dose Admin Acetaminophen 1,000 mg 07/16/25 09:58 07/25/25 13:58 Acetaminophen 500 Mg Tablet PO 1,000 mg Q6H PRN Administration Fever Acetaminophen 500 mg 07/19/25 14:13 07/23/25 15:38 Acetaminophen 500 Mg Tablet PO 500 mg Q6H PRN Administration Pain Rated 1-3 Albuterol/Ipratropium 3 ml 07/17/25 20:40 07/20/25 00:58 Ipratropium 0.5 Mg/Albuterol Sulfate 2.5 Mg Ampul.Neb 3 Ml INHALATION 3 ml Q6HRT PRN Administration wheezing Alteplase, Recombinant 2 mg 07/28/25 23:16 07/28/25 23:41 Alteplase 2 Mg Vial (Cathflo) IV PUSH 2 mg ONCE PRN Administration Line Occlusion Amiodarone HCl 200 mg 07/15/25 02:30 08/02/25 09:15 Amiodarone Hcl 200 Mg Tablet PO 200 mg DAILY SALMA Administration Apixaban 2.5 mg 07/26/25 21:00 08/02/25 09:16 Apixaban 2.5 Mg Tablet PO 2.5 mg Q12HR SALMA Administration Bisacodyl 5 mg 07/22/25 13:35 08/02/25 09:16 Bisacodyl 5 Mg Tablet Ec PO 5 mg QAM SALMA Administration Calcium Acetate 2,001 mg 07/24/25 12:00 08/02/25 18:08 Calcium Acetate 667 Mg Tablet PO 2,001 mg TIDWM SALMA Administration Carvedilol 12.5 mg 07/15/25 09:00 08/02/25 18:07 Carvedilol 12.5 Mg Tablet PO 12.5 mg BID SALMA Administration Dextrose 12.5 gm 07/15/25 01:20 Dextrose 50% 25 Gm/50 Ml Syringe IV PUSH PRN PRN Hypoglycemia Protocol Epoetin Sd-epbx 20,000 units 07/25/25 09:00 08/01/25 17:20 Epoetin Sd-Epbx 20,000 Units/Ml Vial IV PUSH 20,000 units MOWEFR@09 SALMA Administration Glucagon 1 mg 07/15/25 01:20 Glucagon For Inj 1 Mg Vial IM PRN PRN Hypoglycemia Protocol Glucose 15 gm 07/15/25 01:20 Glucose Oral Gel 15 Gm Of Glucse In 37.5 Gm Tube PO PRN PRN Hypoglycemia Protocol Dextrose 1,000 mls @ 100 mls/hr 07/15/25 01:20 Dextrose 5% 1,000 Ml IVPB PRN PRN Hypoglycemia Protocol Albumin Human 50 mls @ 999 mls/hr 07/15/25 15:32 Albutein IVPB 08/14/25 15:31 Q10M PRN HYPOTENSION Daptomycin 800 mg/ Sodium 50 mls @ 100 mls/hr 07/29/25 15:00 08/02/25 15:03 Chloride IVPB 100 mls/hr Q48H SALMA Administration Meropenem 500 mg/ Sodium 100 mls @ 200 mls/hr 07/29/25 14:00 08/02/25 14:29 Chloride IVPB Infused Q24H SALMA Infusion Insulin Aspart 3 - 6 units 07/15/25 08:00 08/02/25 18:06 Insulin Aspart (*Bkc) 100 Units/Ml SUB-Q Not Given TIDWM [facility] Protocol Insulin Aspart 1 - 3 units 07/15/25 21:00 08/01/25 20:17 Insulin Aspart (*Bkc) 100 Units/Ml SUB-Q Not Given HS [facility] Protocol Magnesium Hydroxide 30 ml 07/16/25 08:39 Magnesium Hydroxide Susp 30 Ml Udc PO DAILY PRN Constipation Miconazole Nitrate 1 applic 07/26/25 14:00 08/02/25 14:00 Miconazole Nitrate 2% Cream 30 Gm Tube TOPICAL 1 applic Q8HR SALMA Administration Miscellaneous Information 1 each 07/28/25 00:01 07/29/25 09:47 Please Renew Hydromorphones And Oxycodone. Per [employer] Procedure, It Will Discontinue If XX 08/27/25 00:00 Not Given CLARIFY SALMA Naloxone HCl 0.1 mg 07/19/25 14:13 Naloxone Hcl 0.4 Mg/Ml Vial IV PUSH Q2M PRN Opiate Reversal Oxycodone HCl 2.5 mg 07/19/25 14:13 08/01/25 06:57 Oxycodone Hcl (*Crx) 2.5 Mg Tab Ir PO 2.5 mg Q4H PRN Administration Pain Rated 4-6 Oxycodone HCl 5 mg 07/19/25 14:13 08/02/25 05:21 Oxycodone Hcl (*Crx) 5 Mg Tab Ir PO 5 mg Q4H PRN Administration Pain Rated 7-10 Polyethylene Glycol 17 gm 07/16/25 09:00 08/02/25 09:16 Polyethylene Glycol 3350 17 Gm Powd.Pack PO 17 gm QAM SALMA Administration Sodium Chloride 10 ml 07/19/25 22:00 08/02/25 14:00 Central Line Flush IV PUSH 10 ml Q8HR SALMA Administration Sodium Chloride 10 ml 07/19/25 17:03 07/24/25 00:32 Central Line Flush IV PUSH 10 ml PRN PRN Administration with TPN bag changes Sodium Chloride 20 ml 07/19/25 17:03 07/31/25 04:59 Central Line Flush IV PUSH 20 ml PRN PRN Administration after blood draws Radiology Results: ITS Impressions Cervical Spine CT 07/15/25 07:00 IMPRESSION: 1. No acute abnormality of the cervical spine. 2: Severe cervical spondylosis. Head CT 07/15/25 07:03 IMPRESSION: 1. No acute intracranial abnormality. Shoulder X-Ray 07/15/25 07:39 Impression: 1: No acute fracture. Wrist X-Ray 07/15/25 07:40 Impression: 1: No acute fracture. Elbow X-Ray 07/15/25 07:41 Impression: 1: No acute fracture. Renal Ultrasound 07/15/25 13:09 Impression: 1: Unremarkable renal ultrasound. No stones, masses or hydronephrosis. Central Venous Line 07/19/25 13:50 IMPRESSION: Fluoroscopy used during portacatheter placement. Scrotum Ultrasound 07/20/25 19:05 IMPRESSION: 1. Diffuse scrotal wall thickening. Consider an infectious/inflammatory process such as cellulitis, lymphedema or systemic causes like cirrhosis, nephrotic syndrome or generalized edema. Soft Tissue Ultrasound 07/20/25 19:10 Impression: 1: Area of superficial venous thrombosis corresponds to the area of left arm swelling. Chest X-Ray 07/22/25 17:19 Impression: 1: Developing left basilar airspace disease, consistent with pneumonia. Venous Doppler Study 08/02/25 07:56 IMPRESSION: 1. Patent right upper extremity veins. No evidence of venous thrombosis. Labs Labs: Laboratory Tests 08/02/25 05:15 08/02/25 05:15 Calcium 9.2 Magnesium 2.0 Total Bilirubin 0.6 Direct Bilirubin 0.0 AST 69 H ALT 54 H Alkaline Phosphatase 90 Total Protein 5.4 L Albumin 2.7 L Microbiology 07/29/25 14:00 Scrotum Anaerobic Culture - Preliminary 07/29/25 14:00 Scrotum Aerobic Culture - Final
--- NOTE | 2025-08-02 13:08 | PC.NURSE ---
On 08/02/25, the student, [Carissa Garcia], provided care and completed [facility] documentation on this patient. I have reviewed the student's documentation and agree with the findings.
[2025-08-02] MEDS: MEROPENEM 500 MG in SODIUM CHLORIDE 0.9% IV 100 ML 200 ML IVPB (13:59)
[2025-08-02] MEDS: DAPTOMYCIN IVPB (15:03)
[2025-08-02] MEDS: SODIUM CHLORIDE 0.9% IVPB (15:03)
--- NOTE | 2025-08-02 15:08 | PM.IMPN ---
Progress Note: A&P Assessment and Plan (1) Actinic keratosis: Code(s): L57.0 - Actinic keratosis Status: Acute (2) Acute kidney injury: Code(s): N17.9 - Acute kidney failure, unspecified Status: Acute (3) Cellulitis of scrotum: Code(s): N49.2 - Inflammatory disorders of scrotum Status: Acute (4) Rhabdomyolysis: Qualifiers: Rhabdomyolysis type: non-traumatic Qualified Code(s): M62.82 - Rhabdomyolysis Code(s): M62.82 - Rhabdomyolysis Status: Acute Plan 69-year-old male with PMH morbid obesity with BMI 59, diastolic heart failure, paroxysmal atrial fibrillation, type 2 diabetes mellitus without current long-term use of insulin, JOSÉ LUIS, hyperlipidemia, hypertension. He was found by family member on the ground with unclear time down. ----- Rhabdomyolysis, resolved. Acute renal failure: Nephrology following. Tunneled dialysis catheter placed Urine output is increasing, serum creatinine waxes and wanes. Having good urine output, status post Lasix. Had dialysis again on 08/01/2025, tolerated. Appreciate Nephrology recommendations for management of KAITLIN/dialysis/disposition. He has 1+ pitting edema of all 4 extremities. This is improved from prior. Acute hyperkalemia: Resolved. Sepsis on admission as evidenced by tachycardia tachypnea leukocytosis. Blood culture 07/14/2025, no growth, final. Scrotal cellulitis, purulent: Infectious disease, appreciate recommendations. 07/29/2025, change linezolid and Zosyn to meropenem and daptomycin. Last day of micafungin on 07/30/2025. Micafungin cream to scrotal region. Re-culture of purulent drainage on 07/29/2025 from the scrotal area which appears to be coming from the macerated area on the anterior inferior surface of his scrotum. Continuing to improve, follow ID recommendations and repeat scrotal wound culture. Diabetes mellitus: Continue Accu-Cheks a.c. HS with a low-dose insulin sliding scale. Paroxysmal atrial fibrillation on Xarelto: Due to acute renal failure Xarelto has been changed to Eliquis 2.5 mg p.o. b.i.d. continue [employer] amiodarone 200 mg p.o. q.day, continue Coreg Superficial venous thrombosis left upper extremity identified on ultrasound 07/20/2025. Generalized edema 4 extremities has improved. -right upper extremity swelling on 08/01/2025, repeat venous ultrasound with patent upper extremity veins, no venous thrombosis. Swelling has since improved. Keep arm elevated. Monitor transaminitis Acute anemia: Status post 1 unit PRBC. Continue EPO per Nephrology. Monitor hemoglobin Hyponatremia, stable. Diabetes: Continue Accu-Cheks CPAP nightly for JOSÉ LUIS Diastolic heart failure: Continue Coreg 12.5 mg p.o. b.i.d.. Patient will like to be full code. Pending discharge to skilled facility. Renal dialysis diet. Saline lock IV. PT/OT evaluations ordered. Subjective Date/time seen: 08/02/25 15:08 Interval history: No major acute overnight events. Patient is in good spirits. Denies pain. Denies nausea, shortness of breath. Tolerated dialysis yesterday. Review of Systems Review of Systems: All systems reviewed & are unremarkable except as noted in HPI and below (Subjective) Exam Const: General: comfortable and no acute distress Other: Obese. A&O x3 HENMT: Mouth: Yes moist mucous membranes Eyes: Pupils: Equal, round and reactive pupils present Neck: Neck: supple Resp: Effort & Inspection: normal respiratory effort Auscultation: clear to auscultation bilaterally Cardio: Rate: regular rate GI: Inspection: non-distended GI Palp: Yes Soft to palpation : Other: Slight erythema. Dry, no purulence. Extrem: General: edema Objective Data Vital Signs Vital Signs: Vital Signs - 24 hr 08/01/25 15:15 08/01/25 15:30 08/01/25 15:45 Temperature Pulse Rate 72 66 65 Respiratory Rate Blood Pressure 138/52 L 135/44 L 136/50 L Pulse Oximetry Oxygen Delivery Fraction of Inspired Oxygen 08/01/25 16:00 08/01/25 16:00 08/01/25 16:15 Temperature Pulse Rate 67 66 65 Respiratory Rate Blood Pressure 119/48 L 118/52 L Pulse Oximetry Oxygen Delivery Fraction of Inspired Oxygen 08/01/25 16:30 08/01/25 16:45 08/01/25 17:00 Temperature Pulse Rate 66 67 68 Respiratory Rate Blood Pressure 121/47 L 131/46 L 129/49 L Pulse Oximetry Oxygen Delivery Fraction of Inspired Oxygen 08/01/25 17:15 08/01/25 17:30 08/01/25 17:45 Temperature Pulse Rate 68 68 71 Respiratory Rate Blood Pressure 131/50 L 133/54 L 138/49 L Pulse Oximetry Oxygen Delivery Fraction of Inspired Oxygen 08/01/25 18:00 08/01/25 18:15 08/01/25 18:30 Temperature Pulse Rate 66 69 70 Respiratory Rate Blood Pressure 140/45 L 136/47 L 145/47 H Pulse Oximetry Oxygen Delivery Fraction of Inspired Oxygen 08/01/25 18:37 08/01/25 18:44 08/01/25 19:02 Temperature 98.6 F Pulse Rate 75 72 75 Respiratory Rate 18 Blood Pressure 146/50 H 131/46 L Pulse Oximetry 99 Oxygen Delivery Fraction of Inspired Oxygen 08/01/25 19:46 08/01/25 20:00 08/01/25 20:00 Temperature 97.9 F Pulse Rate 74 77 Respiratory Rate 17 Blood Pressure 142/46 H Pulse Oximetry 94 Oxygen Delivery Room Air Fraction of Inspired Oxygen 21 08/02/25 00:00 08/02/25 04:00 08/02/25 04:53 Temperature 98.2 F Pulse Rate 71 73 73 Respiratory Rate 18 Blood Pressure 127/43 L Pulse Oximetry 92 Oxygen Delivery Fraction of Inspired Oxygen 08/02/25 08:00 08/02/25 09:14 08/02/25 09:15 Temperature Pulse Rate 70 74 74 Respiratory Rate Blood Pressure Pulse Oximetry Oxygen Delivery Fraction of Inspired Oxygen 08/02/25 09:15 08/02/25 10:57 08/02/25 14:17 Temperature Pulse Rate Respiratory Rate Blood Pressure Pulse Oximetry Oxygen Delivery Room Air Room Air Room Air Fraction of Inspired Oxygen Intake/Output Intake/Output: Intake & Output 07/30/25 07/31/25 08/01/25 08/02/25 23:59 23:59 23:59 23:59 Intake Total 5499 981 5477 580 Output Total 1124 2600 1500 1150 [facility] -[phone] -[phone] -570 Meds/Results Medications: Active Medications Generic Name Dose Route Start Last Admin Trade Name Freq PRN Reason Stop Dose Admin Acetaminophen 1,000 mg 07/16/25 09:58 07/25/25 13:58 Acetaminophen 500 Mg Tablet PO 1,000 mg Q6H PRN Administration Fever Acetaminophen 500 mg 07/19/25 14:13 07/23/25 15:38 Acetaminophen 500 Mg Tablet PO 500 mg Q6H PRN Administration Pain Rated 1-3 Albuterol/Ipratropium 3 ml 07/17/25 20:40 07/20/25 00:58 Ipratropium 0.5 Mg/Albuterol Sulfate 2.5 Mg Ampul.Neb 3 Ml INHALATION 3 ml Q6HRT PRN Administration wheezing Alteplase, Recombinant 2 mg 07/28/25 23:16 07/28/25 23:41 Alteplase 2 Mg Vial (Cathflo) IV PUSH 2 mg ONCE PRN Administration Line Occlusion Amiodarone HCl 200 mg 07/15/25 02:30 08/02/25 09:15 Amiodarone Hcl 200 Mg Tablet PO 200 mg DAILY SALMA Administration Apixaban 2.5 mg 07/26/25 21:00 08/02/25 09:16 Apixaban 2.5 Mg Tablet PO 2.5 mg Q12HR SALMA Administration Bisacodyl 5 mg 07/22/25 13:35 08/02/25 09:16 Bisacodyl 5 Mg Tablet Ec PO 5 mg QAM SALMA Administration Calcium Acetate 2,001 mg 07/24/25 12:00 08/02/25 12:15 Calcium Acetate 667 Mg Tablet PO 2,001 mg TIDWM SALMA Administration Carvedilol 12.5 mg 07/15/25 09:00 08/02/25 09:14 Carvedilol 12.5 Mg Tablet PO 12.5 mg BID SALMA Administration Dextrose 12.5 gm 07/15/25 01:20 Dextrose 50% 25 Gm/50 Ml Syringe IV PUSH PRN PRN Hypoglycemia Protocol Epoetin Sd-epbx 20,000 units 07/25/25 09:00 08/01/25 17:20 Epoetin Sd-Epbx 20,000 Units/Ml Vial IV PUSH 20,000 units MOWEFR@09 SALMA Administration Glucagon 1 mg 07/15/25 01:20 Glucagon For Inj 1 Mg Vial IM PRN PRN Hypoglycemia Protocol Glucose 15 gm 07/15/25 01:20 Glucose Oral Gel 15 Gm Of Glucse In 37.5 Gm Tube PO PRN PRN Hypoglycemia Protocol Dextrose 1,000 mls @ 100 mls/hr 07/15/25 01:20 Dextrose 5% 1,000 Ml IVPB PRN PRN Hypoglycemia Protocol Albumin Human 50 mls @ 999 mls/hr 07/15/25 15:32 Albutein IVPB 08/14/25 15:31 Q10M PRN HYPOTENSION Daptomycin 800 mg/ Sodium 50 mls @ 100 mls/hr 07/29/25 15:00 08/02/25 15:03 Chloride IVPB 100 mls/hr Q48H SALMA Administration Meropenem 500 mg/ Sodium 100 mls @ 200 mls/hr 07/29/25 14:00 08/02/25 14:29 Chloride IVPB Infused Q24H SALMA Infusion Insulin Aspart 3 - 6 units 07/15/25 08:00 08/02/25 11:43 Insulin Aspart (*Bkc) 100 Units/Ml SUB-Q Not Given TIDWM [facility] Protocol Insulin Aspart 1 - 3 units 07/15/25 21:00 08/01/25 20:17 Insulin Aspart (*Bkc) 100 Units/Ml SUB-Q Not Given HS [facility] Protocol Magnesium Hydroxide 30 ml 07/16/25 08:39 Magnesium Hydroxide Susp 30 Ml Udc PO DAILY PRN Constipation Miconazole Nitrate 1 applic 07/26/25 14:00 08/02/25 14:00 Miconazole Nitrate 2% Cream 30 Gm Tube TOPICAL 1 applic Q8HR SALMA Administration Miscellaneous Information 1 each 07/28/25 00:01 07/29/25 09:47 Please Renew Hydromorphones And Oxycodone. Per [employer] Procedure, It Will Discontinue If XX 08/27/25 00:00 Not Given CLARIFY SALMA Naloxone HCl 0.1 mg 07/19/25 14:13 Naloxone Hcl 0.4 Mg/Ml Vial IV PUSH Q2M PRN Opiate Reversal Oxycodone HCl 2.5 mg 07/19/25 14:13 08/01/25 06:57 Oxycodone Hcl (*Crx) 2.5 Mg Tab Ir PO 2.5 mg Q4H PRN Administration Pain Rated 4-6 Oxycodone HCl 5 mg 07/19/25 14:13 08/02/25 05:21 Oxycodone Hcl (*Crx) 5 Mg Tab Ir PO 5 mg Q4H PRN Administration Pain Rated 7-10 Polyethylene Glycol 17 gm 07/16/25 09:00 08/02/25 09:16 Polyethylene Glycol 3350 17 Gm Powd.Pack PO 17 gm QAM SALMA Administration Sodium Chloride 10 ml 07/19/25 22:00 08/02/25 14:00 Central Line Flush IV PUSH 10 ml Q8HR SALMA Administration Sodium Chloride 10 ml 07/19/25 17:03 07/24/25 00:32 Central Line Flush IV PUSH 10 ml PRN PRN Administration with TPN bag changes Sodium Chloride 20 ml 07/19/25 17:03 07/31/25 04:59 Central Line Flush IV PUSH 20 ml PRN PRN Administration after blood draws Radiology Results: ITS Impressions Cervical Spine CT 07/15/25 07:00 IMPRESSION: 1. No acute abnormality of the cervical spine. 2: Severe cervical spondylosis. Head CT 07/15/25 07:03 IMPRESSION: 1. No acute intracranial abnormality. Shoulder X-Ray 07/15/25 07:39 Impression: 1: No acute fracture. Wrist X-Ray 07/15/25 07:40 Impression: 1: No acute fracture. Elbow X-Ray 07/15/25 07:41 Impression: 1: No acute fracture. Renal Ultrasound 07/15/25 13:09 Impression: 1: Unremarkable renal ultrasound. No stones, masses or hydronephrosis. Central Venous Line 07/19/25 13:50 IMPRESSION: Fluoroscopy used during portacatheter placement. Scrotum Ultrasound 07/20/25 19:05 IMPRESSION: 1. Diffuse scrotal wall thickening. Consider an infectious/inflammatory process such as cellulitis, lymphedema or systemic causes like cirrhosis, nephrotic syndrome or generalized edema. Soft Tissue Ultrasound 07/20/25 19:10 Impression: 1: Area of superficial venous thrombosis corresponds to the area of left arm swelling. Chest X-Ray 07/22/25 17:19 Impression: 1: Developing left basilar airspace disease, consistent with pneumonia. Venous Doppler Study 08/02/25 07:56 IMPRESSION: 1. Patent right upper extremity veins. No evidence of venous thrombosis. Labs Labs: Laboratory Results - last 24 hr 08/01/25 08/02/25 08/02/25 19:43 05:15 07:43 WBC 10.2 H RBC 2.73 L Hgb 8.5 L Hct 27.5 L MCV 100.7 H MCH 31.1 MCHC 30.9 L RDW 15.8 H Plt Count 214 MPV 9.3 Immature Gran % (Auto) 0.9 H Neut % (Auto) 78.8 H Lymph % (Auto) 9.2 L Winston % (Auto) 8.9 H Eos % (Auto) 1.7 Baso % (Auto) 0.5 Lymph # (Auto) 0.94 Winston # (Auto) 0.9 H Eos # (Auto) 0.2 Baso # (Auto) 0.1 Abs Immat Gran (auto) 0.09 H Absolute Neuts (auto) 8.0 H Absolute Nucleated RBC 0.000 Nucleated RBC % 0.0 Sodium 133 L Potassium 4.3 Chloride 97 L Carbon Dioxide 32 H Anion Gap 4 BUN 55 H D Creatinine 2.93 H Estim Creat Clear Calc 40 Estimated GFR 21 L Glucose 130 H POC Capillary Glucose 128 H 121 H Calcium 9.2 Magnesium 2.0 Total Bilirubin 0.6 Direct Bilirubin 0.0 AST 69 H ALT 54 H Alkaline Phosphatase 90 Total Protein 5.4 L Albumin 2.7 L 08/02/25 11:25 WBC RBC Hgb Hct MCV MCH MCHC RDW Plt Count MPV Immature Gran % (Auto) Neut % (Auto) Lymph % (Auto) Winston % (Auto) Eos % (Auto) Baso % (Auto) Lymph # (Auto) Winston # (Auto) Eos # (Auto) Baso # (Auto) Abs Immat Gran (auto) Absolute Neuts (auto) Absolute Nucleated RBC Nucleated RBC % Sodium Potassium Chloride Carbon Dioxide Anion Gap BUN Creatinine Estim Creat Clear Calc Estimated GFR Glucose POC Capillary Glucose 150 H Calcium Magnesium Total Bilirubin Direct Bilirubin AST ALT Alkaline Phosphatase Total Protein Albumin
[2025-08-03] VITALS (9 sets, daily range): BP systolic 94–127; BP diastolic 36–44; PULSE 59–74; RESP 18–20; TEMP 36.3–36.8; O2SAT 91–93
[2025-08-03 05:12] LABS: Hematocrit 28.0 % (42.0-52.0); Hemoglobin 8.4 g/dL (14.0-18.0); Immature Granulocyte Percent A 0.6 % (0-0.5); Lymphocytes Absolute Auto 1.05 K/mm3 (0.9-3.2); Mean Corpuscular HGB Conc 30.0 g/dl (32-36); Mean Corpuscular Hemoglobin 30.8 pg (26-34); Mean Corpuscular Volume 102.6 fl (80-100); Nucleated Red Blood Cells Absolute Auto 0.000 K/mm3 (0.0-0.012); Nucleated Red Blood Cells Perc 0.0 % (0.0-0.2); Platelet Count Result 195 k/mm3 (150-375); Red Blood Count 2.73 M/mm3 (4.6-6.20); White Blood Count 10.0 K/mm3 (4.5-10.0)
[2025-08-03 05:26] LABS: Alanine Aminotransferase 42 U/L (6-50); Albumin Level 2.7 g/dL (3.5-5.1); Alkaline Phosphatase 86 U/L (38-126); Anion Gap 2 mmol/L (4-12); Aspartate Amino Transferase 57 U/L (17-59); Bilirubin,Total 0.7 mg/dL (0.2-1.3); Blood Urea Nitrogen 61 mg/dL (9-20); Calcium 9.5 mg/dL (8.4-10.2); Carbon Dioxide 34 mmol/L (22-30); Chloride 98 mmol/L (98-107); Estimated CRCL calculation 33 ml/min; Estimated Glomerular Filt Rate 17; Glucose 124 mg/dL (65-110); Potassium 4.4 mmol/L (3.4-5.0); Sodium 134 mmol/L (137-145); Total Protein 5.3 g/dL (6.3-8.2)
[2025-08-03] MEDS: oxyCODONE HCL (*CRX) 5 MG TAB IR PO ×3 (06:56→21:36)
[2025-08-03] MEDS: MICONAZOLE NITRATE 2% CREAM 30 GM TUBE 1 APPLIC TOPICAL ×3 (06:58→21:39)
[2025-08-03] MEDS: CENTRAL LINE FLUSH 10 ML IV PUSH ×3 (06:58→21:37)
[2025-08-03] MEDS: CALCIUM ACETATE 667 MG TABLET 2001 MG PO ×3 (08:21→17:13)
[2025-08-03] MEDS: BISACODYL 5 MG TABLET EC PO (08:22)
[2025-08-03] MEDS: APIXABAN 2.5 MG TABLET PO ×2 (08:22→21:36)
[2025-08-03] MEDS: AMIODARONE HCL 200 MG TABLET PO (08:22)
[2025-08-03] MEDS: MEROPENEM 500 MG in SODIUM CHLORIDE 0.9% IV 100 ML 200 ML IVPB (14:19)
--- NOTE | 2025-08-03 15:20 | P.PNNP_ITS ---
Progress Note: A&P Assessment and Plan (1) Acute kidney injury: Code(s): N17.9 - Acute kidney failure, unspecified Status: Acute Assessment and Plan: * as noted by admission labs * progressively worsening as noted by trend of labs since hospitalization began * was also complicated by persistent hyperkalemia unresponsive to medical therapy and declining UOP * baseline creatinine normal: * 1.16mg/dL in October 2024 (by outpatient labs from PCP) * 1.30mg/dL in October 2022 ([facility]) * multifactorial etiology: * rhabdomyolysis * LAURY-I use prior to admission * diuretic use (lasix + spironolactone) prior to admission * prerenal factors(?) * infection/early sepsis(?) * other(?) * evaluation to date noted: * prerenal urine electrolytes * urine eosinophils negative * CPK as already noted * mild proteinuria * renal ultrasound without obstruction * s/p tunneled HD catheter placement (on 07/19/25) * making good urine output without diuretic therapy * possible renal recovery??? * HOLD dialysis today... * continue to follow trend of repeal labs and UOP for potential renal recovery (2) Leukocytosis: Qualifiers: Leukocytosis type: unspecified Qualified Code(s): D72.829 - Elevated white blood cell count, unspecified Code(s): D72.829 - Elevated white blood cell count, unspecified Status: Acute Assessment and Plan: * slow improvement * initial concern was sepsis given associated lactic acidosis, tachycardia, tachypnea on admission * Infectious Disease following with recommendations noted * potential sources noted: * scrotal cellulitis * right arm hematoma * constipation * pneumonia * tinea cruris * elevated CPK * on antibiotics as outlined * cultures negative so far (3) Anemia: Code(s): D64.9 - Anemia, unspecified Status: Acute Assessment and Plan: * due to previous IVF hydration, KAITLIN/ARF, and trauma/hematomas * Epogen with HD * follow trend of of H/H (4) Hyponatremia: Code(s): E87.1 - Hypo-osmolality and hyponatremia Status: Acute Assessment and Plan: * acute (on chronic?) * noted as far back as October 2022 * however, on PCP labs in October 2024, sodium was 138mmol/L * suspect due more related to KAITLIN/ARF and diminished urine output/anuria (dilutional) * TSH and cortisol okay * dialysis helping to correct to some degree (5) Atrial fibrillation and flutter: Code(s): I48.91 - Unspecified atrial fibrillation; I48.92 - Unspecified atrial flutter Status: Chronic Assessment and Plan: * paroxysmal in nature * on amiodarone * on Eliquis (6) Transaminitis: Code(s): R74.01 - Elevation of levels of liver transaminase levels Status: Acute Assessment and Plan: * resolved (7) Hypertension: Code(s): I10 - Essential (primary) hypertension Status: Chronic Assessment and Plan: * reasonable control * follow trend of hemodynamics (8) Diabetes: Code(s): E11.9 - Type 2 diabetes mellitus without complications Status: Chronic Assessment and Plan: * follow accu-cheks * glycemic control per hospitalist Not opposed to discharge from renal perspective if otherwise medically stable; he may or may not need dialysis on discharge but since he is likely going to a SNF with in-house dialysis, they monitor his kidney function and UOP to assess if further dialysis is needed and monitor for renal recovery. Will continue to follow. L Subjective Date/time seen: 08/03/25 15:20 Interval history: Follow-up for acute kidney injury/acute renal failure requiring RN HOSPICE/hemodialysis No apparent distress voiced at the time of my visit; continues to make good urine output as well; dialysis held today due to relative stability of labs this morning; swelling/edema stable if not better; no other issues/events overnight or earlier this morning. Exam 2 Narrative: General: elderly but large and WD/WN male in NAD Heart: normal S1 and S2; no rub Lungs: clear anteriorly Abdomen: soft, nontender, nondistended, positive bowel sounds Extremities: no cyanosis or clubbing; trace edema (upper and lower extremities) Skin: venous stasis changes over BLEs; chronic actinic changes in UEs as well Objective Data Vital Signs Vital Signs: Vital Signs Temp Pulse Resp BP Pulse Ox O2 Del Method 08/03/25 12:00 73 08/03/25 08:25 Room Air 08/03/25 08:22 74 08/03/25 08:22 74 08/03/25 08:20 71 127/40 L 08/03/25 08:00 59 L 08/03/25 04:08 97.3 F L 72 20 107/44 L 93 08/03/25 04:00 68 Intake/Output Intake/Output: Intake & Output 08/01/25 08/02/25 08/03/25 08/04/25 23:59 23:59 23:59 23:59 Intake Total 1220 1420 1560 Output Total 1500 1750 3150 Balance -280 330 -4180 Meds/Results Medications: Active Medications Generic Name Dose Route Start Last Admin Trade Name Freq PRN Reason Stop Dose Admin Acetaminophen 1,000 mg 07/16/25 09:58 07/25/25 13:58 Acetaminophen 500 Mg Tablet PO 1,000 mg Q6H PRN Administration Fever Acetaminophen 500 mg 07/19/25 14:13 07/23/25 15:38 Acetaminophen 500 Mg Tablet PO 500 mg Q6H PRN Administration Pain Rated 1-3 Albuterol/Ipratropium 3 ml 07/17/25 20:40 07/20/25 00:58 Ipratropium 0.5 Mg/Albuterol Sulfate 2.5 Mg Ampul.Neb 3 Ml INHALATION 3 ml Q6HRT PRN Administration wheezing Alteplase, Recombinant 2 mg 07/28/25 23:16 07/28/25 23:41 Alteplase 2 Mg Vial (Cathflo) IV PUSH 2 mg ONCE PRN Administration Line Occlusion Amiodarone HCl 200 mg 07/15/25 02:30 08/03/25 08:22 Amiodarone Hcl 200 Mg Tablet PO 200 mg DAILY SALMA Administration Apixaban 2.5 mg 07/26/25 21:00 08/03/25 21:36 Apixaban 2.5 Mg Tablet PO 2.5 mg Q12HR SALMA Administration Bisacodyl 5 mg 07/22/25 13:35 08/03/25 08:22 Bisacodyl 5 Mg Tablet Ec PO 5 mg QAM SALMA Administration Calcium Acetate 2,001 mg 07/24/25 12:00 08/03/25 17:13 Calcium Acetate 667 Mg Tablet PO 2,001 mg TIDWM SALMA Administration Carvedilol 12.5 mg 07/15/25 09:00 08/03/25 17:13 Carvedilol 12.5 Mg Tablet PO 12.5 mg BID SALMA Administration Dextrose 12.5 gm 07/15/25 01:20 Dextrose 50% 25 Gm/50 Ml Syringe IV PUSH PRN PRN Hypoglycemia Protocol Epoetin Sd-epbx 20,000 units 07/25/25 09:00 08/01/25 17:20 Epoetin Sd-Epbx 20,000 Units/Ml Vial IV PUSH 20,000 units MOWEFR@09 SALMA Administration Glucagon 1 mg 07/15/25 01:20 Glucagon For Inj 1 Mg Vial IM PRN PRN Hypoglycemia Protocol Glucose 15 gm 07/15/25 01:20 Glucose Oral Gel 15 Gm Of Glucse In 37.5 Gm Tube PO PRN PRN Hypoglycemia Protocol Dextrose 1,000 mls @ 100 mls/hr 07/15/25 01:20 Dextrose 5% 1,000 Ml IVPB PRN PRN Hypoglycemia Protocol Albumin Human 50 mls @ 999 mls/hr 07/15/25 15:32 Albutein IVPB 08/14/25 15:31 Q10M PRN HYPOTENSION Daptomycin 800 mg/ Sodium 50 mls @ 100 mls/hr 07/29/25 15:00 08/02/25 15:33 Chloride IVPB 08/04/25 23:59 Infused Q48H SALMA Infusion Insulin Aspart 3 - 6 units 07/15/25 08:00 08/03/25 17:06 Insulin Aspart (*Bkc) 100 Units/Ml SUB-Q Not Given TIDWM [facility] Protocol Insulin Aspart 1 - 3 units 07/15/25 21:00 08/03/25 21:48 Insulin Aspart (*Bkc) 100 Units/Ml SUB-Q Not Given HS [facility] Protocol Magnesium Hydroxide 30 ml 07/16/25 08:39 Magnesium Hydroxide Susp 30 Ml Udc PO DAILY PRN Constipation Miconazole Nitrate 1 applic 07/26/25 14:00 08/03/25 21:39 Miconazole Nitrate 2% Cream 30 Gm Tube TOPICAL 1 applic Q8HR SALMA Administration Naloxone HCl 0.1 mg 07/19/25 14:13 Naloxone Hcl 0.4 Mg/Ml Vial IV PUSH Q2M PRN Opiate Reversal Oxycodone HCl 2.5 mg 07/19/25 14:13 08/04/25 00:01 Oxycodone Hcl (*Crx) 2.5 Mg Tab Ir PO 2.5 mg Q4H PRN Administration Pain Rated 4-6 Oxycodone HCl 5 mg 07/19/25 14:13 08/03/25 21:36 Oxycodone Hcl (*Crx) 5 Mg Tab Ir PO 5 mg Q4H PRN Administration Pain Rated 7-10 Polyethylene Glycol 17 gm 07/16/25 09:00 08/03/25 08:22 Polyethylene Glycol 3350 17 Gm Powd.Pack PO Not Given QAM SALMA Sodium Chloride 10 ml 07/19/25 22:00 08/03/25 21:37 Central Line Flush IV PUSH 10 ml Q8HR SALMA Administration Sodium Chloride 10 ml 07/19/25 17:03 07/24/25 00:32 Central Line Flush IV PUSH 10 ml PRN PRN Administration with TPN bag changes Sodium Chloride 20 ml 07/19/25 17:03 07/31/25 04:59 Central Line Flush IV PUSH 20 ml PRN PRN Administration after blood draws Radiology Results: ITS Impressions Cervical Spine CT 07/15/25 07:00 IMPRESSION: 1. No acute abnormality of the cervical spine. 2: Severe cervical spondylosis. Head CT 07/15/25 07:03 IMPRESSION: 1. No acute intracranial abnormality. Shoulder X-Ray 07/15/25 07:39 Impression: 1: No acute fracture. Wrist X-Ray 07/15/25 07:40 Impression: 1: No acute fracture. Elbow X-Ray 07/15/25 07:41 Impression: 1: No acute fracture. Renal Ultrasound 07/15/25 13:09 Impression: 1: Unremarkable renal ultrasound. No stones, masses or hydronephrosis. Central Venous Line 07/19/25 13:50 IMPRESSION: Fluoroscopy used during portacatheter placement. Scrotum Ultrasound 07/20/25 19:05 IMPRESSION: 1. Diffuse scrotal wall thickening. Consider an infectious/inflammatory process such as cellulitis, lymphedema or systemic causes like cirrhosis, nephrotic syndrome or generalized edema. Soft Tissue Ultrasound 07/20/25 19:10 Impression: 1: Area of superficial venous thrombosis corresponds to the area of left arm swelling. Chest X-Ray 07/22/25 17:19 Impression: 1: Developing left basilar airspace disease, consistent with pneumonia. Venous Doppler Study 08/02/25 07:56 IMPRESSION: 1. Patent right upper extremity veins. No evidence of venous thrombosis. Labs Labs: Laboratory Tests 08/03/25 05:07 08/03/25 05:07 Calcium 9.5 Phosphorus 4.6 H Total Bilirubin 0.7 AST 57 ALT 42 Alkaline Phosphatase 86 Total Protein 5.3 L Albumin 2.7 L Microbiology 07/29/25 14:00 Scrotum Anaerobic Culture - Preliminary Gram negative bacilli isolated 07/29/25 14:00 Scrotum Aerobic Culture - Final
--- NOTE | 2025-08-03 15:25 | PM.IMPN ---
Progress Note: A&P Assessment and Plan (1) Actinic keratosis: Code(s): L57.0 - Actinic keratosis Status: Acute (2) Acute kidney injury: Code(s): N17.9 - Acute kidney failure, unspecified Status: Acute (3) Cellulitis of scrotum: Code(s): N49.2 - Inflammatory disorders of scrotum Status: Acute (4) Rhabdomyolysis: Qualifiers: Rhabdomyolysis type: non-traumatic Qualified Code(s): M62.82 - Rhabdomyolysis Code(s): M62.82 - Rhabdomyolysis Status: Acute Plan 69-year-old male with PMH morbid obesity with BMI 59, diastolic heart failure, paroxysmal atrial fibrillation, type 2 diabetes mellitus without current long-term use of insulin, JOSÉ LUIS, hyperlipidemia, hypertension. He was found by family member on the ground with unclear time down. ----- 08/03/2025: Discussed with multidisciplinary team in morning rounds. Plan is to discharge tomorrow after last dose of daptomycin. Last day of meropenem today. Continue miconazole cream. Blood culture 07/14/2025, negative, final report. Correa catheter remains until scrotal infection is completely resolved. He is deconditioned and cannot make it to the urinal in time. Plan for discharge tomorrow to [facility] for continued therapy. At this time he is weak, requiring assistance, prior to admission he was independent using a Rollator to walk around. He has been hemodynamically stable with a stable rhythm. Discontinue telemetry. Rhabdomyolysis, resolved. Acute renal failure: Nephrology following. Tunneled dialysis catheter placed Urine output is increasing, serum creatinine waxes and wanes. Having good urine output, status post Lasix. Had dialysis again on 08/01/2025, tolerated. Appreciate Nephrology recommendations for management of KAITLIN/dialysis/disposition. He has 1+ pitting edema of all 4 extremities. This is improved from prior. Acute hyperkalemia: Resolved. Sepsis on admission as evidenced by tachycardia tachypnea leukocytosis. Blood culture 07/14/2025, no growth, final. Scrotal cellulitis, purulent: Infectious disease, appreciate recommendations. 07/29/2025, change linezolid and Zosyn to meropenem and daptomycin. Last day of micafungin on 07/30/2025. Micafungin cream to scrotal region. Re-culture of purulent drainage on 07/29/2025 from the scrotal area which appears to be coming from the macerated area on the anterior inferior surface of his scrotum. Continuing to improve, follow ID recommendations and repeat scrotal wound culture. Diabetes mellitus: Continue Accu-Cheks a.c. HS with a low-dose insulin sliding scale. Paroxysmal atrial fibrillation on Xarelto: Due to acute renal failure Xarelto has been changed to Eliquis 2.5 mg p.o. b.i.d. continue W[employer] amiodarone 200 mg p.o. q.day, continue Coreg Superficial venous thrombosis left upper extremity identified on ultrasound 07/20/2025. Generalized edema 4 extremities has improved. -right upper extremity swelling on 08/01/2025, repeat venous ultrasound with patent upper extremity veins, no venous thrombosis. Swelling has since improved. Keep arm elevated. Monitor transaminitis Acute anemia: Status post 1 unit PRBC. Continue EPO per Nephrology. Monitor hemoglobin Hyponatremia, stable. Diabetes: Continue Accu-Cheks CPAP nightly for JOSÉ LUIS Diastolic heart failure: Continue Coreg 12.5 mg p.o. b.i.d.. Patient will like to be full code. Pending discharge to skilled facility. Renal dialysis diet. Saline lock IV. PT/OT evaluations and treatment ongoing. Subjective Date/time seen: 08/03/25 15:25 Interval history: No major acute overnight events. Patient is in good spirits. Denies pain. Denies nausea, shortness of breath, denies fever. He had no questions. Review of Systems Review of Systems: All systems reviewed & are unremarkable except as noted in HPI and below (Subjective) Exam Const: General: comfortable and no acute distress Other: Obese. A&O x3 HENMT: Mouth: Yes moist mucous membranes Eyes: Pupils: Equal, round and reactive pupils present Neck: Neck: supple Resp: Effort & Inspection: normal respiratory effort Auscultation: clear to auscultation bilaterally Cardio: Rate: regular rate GI: Inspection: non-distended GI Palp: Yes Soft to palpation : Other: Slight erythema. Dry, no purulence. Extrem: General: edema Objective Data Vital Signs Vital Signs: Vital Signs - 24 hr 08/02/25 16:00 08/02/25 18:07 08/02/25 19:53 Temperature 97.8 F Pulse Rate 71 84 79 Respiratory Rate 20 Blood Pressure 144/49 H Pulse Oximetry 93 Oxygen Delivery Fraction of Inspired Oxygen 08/02/25 20:00 08/02/25 20:00 08/03/25 00:00 Temperature Pulse Rate 37 L 70 Respiratory Rate Blood Pressure Pulse Oximetry Oxygen Delivery Room Air Fraction of Inspired Oxygen 21 08/03/25 04:00 08/03/25 04:08 08/03/25 08:00 Temperature 97.3 F L Pulse Rate 68 72 59 L Respiratory Rate 20 Blood Pressure 107/44 L Pulse Oximetry 93 Oxygen Delivery Fraction of Inspired Oxygen 08/03/25 08:20 08/03/25 08:22 08/03/25 08:22 Temperature Pulse Rate 71 74 74 Respiratory Rate Blood Pressure 127/40 L Pulse Oximetry Oxygen Delivery Fraction of Inspired Oxygen 08/03/25 08:25 08/03/25 12:00 Temperature Pulse Rate 73 Respiratory Rate Blood Pressure Pulse Oximetry Oxygen Delivery Room Air Fraction of Inspired Oxygen Intake/Output Intake/Output: Intake & Output 07/31/25 08/01/25 08/02/25 08/03/25 23:59 23:59 23:59 23:59 Intake Total 950 1220 1370 670 Output Total 2600 1500 1750 1700 [id number] [phone] Meds/Results Medications: Active Medications Generic Name Dose Route Start Last Admin Trade Name Freq PRN Reason Stop Dose Admin Acetaminophen 1,000 mg 07/16/25 09:58 07/25/25 13:58 Acetaminophen 500 Mg Tablet PO 1,000 mg Q6H PRN Administration Fever Acetaminophen 500 mg 07/19/25 14:13 07/23/25 15:38 Acetaminophen 500 Mg Tablet PO 500 mg Q6H PRN Administration Pain Rated 1-3 Albuterol/Ipratropium 3 ml 07/17/25 20:40 07/20/25 00:58 Ipratropium 0.5 Mg/Albuterol Sulfate 2.5 Mg Ampul.Neb 3 Ml INHALATION 3 ml Q6HRT PRN Administration wheezing Alteplase, Recombinant 2 mg 07/28/25 23:16 07/28/25 23:41 Alteplase 2 Mg Vial (Cathflo) IV PUSH 2 mg ONCE PRN Administration Line Occlusion Amiodarone HCl 200 mg 07/15/25 02:30 08/03/25 08:22 Amiodarone Hcl 200 Mg Tablet PO 200 mg DAILY SALMA Administration Apixaban 2.5 mg 07/26/25 21:00 08/03/25 08:22 Apixaban 2.5 Mg Tablet PO 2.5 mg Q12HR SALMA Administration Bisacodyl 5 mg 07/22/25 13:35 08/03/25 08:22 Bisacodyl 5 Mg Tablet Ec PO 5 mg QAM SALMA Administration Calcium Acetate 2,001 mg 07/24/25 12:00 08/03/25 12:27 Calcium Acetate 667 Mg Tablet PO 2,001 mg TIDWM SALMA Administration Carvedilol 12.5 mg 07/15/25 09:00 08/03/25 08:22 Carvedilol 12.5 Mg Tablet PO 12.5 mg BID SALMA Administration Dextrose 12.5 gm 07/15/25 01:20 Dextrose 50% 25 Gm/50 Ml Syringe IV PUSH PRN PRN Hypoglycemia Protocol Epoetin Sd-epbx 20,000 units 07/25/25 09:00 08/01/25 17:20 Epoetin Sd-Epbx 20,000 Units/Ml Vial IV PUSH 20,000 units MOWEFR@09 SALMA Administration Glucagon 1 mg 07/15/25 01:20 Glucagon For Inj 1 Mg Vial IM PRN PRN Hypoglycemia Protocol Glucose 15 gm 07/15/25 01:20 Glucose Oral Gel 15 Gm Of Glucse In 37.5 Gm Tube PO PRN PRN Hypoglycemia Protocol Dextrose 1,000 mls @ 100 mls/hr 07/15/25 01:20 Dextrose 5% 1,000 Ml IVPB PRN PRN Hypoglycemia Protocol Albumin Human 50 mls @ 999 mls/hr 07/15/25 15:32 Albutein IVPB 08/14/25 15:31 Q10M PRN HYPOTENSION Daptomycin 800 mg/ Sodium 50 mls @ 100 mls/hr 07/29/25 15:00 08/02/25 15:03 Chloride IVPB 08/04/25 23:59 100 mls/hr Q48H SALMA Administration Meropenem 500 mg/ Sodium 100 mls @ 200 mls/hr 07/29/25 14:00 08/03/25 14:19 Chloride IVPB 08/03/25 23:59 200 mls/hr Q24H SALMA Administration Insulin Aspart 3 - 6 units 07/15/25 08:00 08/03/25 12:06 Insulin Aspart (*Bkc) 100 Units/Ml SUB-Q Not Given TIDWM [facility] Protocol Insulin Aspart 1 - 3 units 07/15/25 21:00 08/02/25 21:40 Insulin Aspart (*Bkc) 100 Units/Ml SUB-Q Not Given HS [facility] Protocol Magnesium Hydroxide 30 ml 07/16/25 08:39 Magnesium Hydroxide Susp 30 Ml Udc PO DAILY PRN Constipation Miconazole Nitrate 1 applic 07/26/25 14:00 08/03/25 14:19 Miconazole Nitrate 2% Cream 30 Gm Tube TOPICAL 1 applic Q8HR SALMA Administration Naloxone HCl 0.1 mg 07/19/25 14:13 Naloxone Hcl 0.4 Mg/Ml Vial IV PUSH Q2M PRN Opiate Reversal Oxycodone HCl 2.5 mg 07/19/25 14:13 08/01/25 06:57 Oxycodone Hcl (*Crx) 2.5 Mg Tab Ir PO 2.5 mg Q4H PRN Administration Pain Rated 4-6 Oxycodone HCl 5 mg 07/19/25 14:13 08/03/25 06:56 Oxycodone Hcl (*Crx) 5 Mg Tab Ir PO 5 mg Q4H PRN Administration Pain Rated 7-10 Polyethylene Glycol 17 gm 07/16/25 09:00 08/03/25 08:22 Polyethylene Glycol 3350 17 Gm Powd.Pack PO Not Given QAM SALMA Sodium Chloride 10 ml 07/19/25 22:00 08/03/25 14:19 Central Line Flush IV PUSH 10 ml Q8HR SALMA Administration Sodium Chloride 10 ml 07/19/25 17:03 07/24/25 00:32 Central Line Flush IV PUSH 10 ml PRN PRN Administration with TPN bag changes Sodium Chloride 20 ml 07/19/25 17:03 07/31/25 04:59 Central Line Flush IV PUSH 20 ml PRN PRN Administration after blood draws Radiology Results: ITS Impressions Cervical Spine CT 07/15/25 07:00 IMPRESSION: 1. No acute abnormality of the cervical spine. 2: Severe cervical spondylosis. Head CT 07/15/25 07:03 IMPRESSION: 1. No acute intracranial abnormality. Shoulder X-Ray 07/15/25 07:39 Impression: 1: No acute fracture. Wrist X-Ray 07/15/25 07:40 Impression: 1: No acute fracture. Elbow X-Ray 07/15/25 07:41 Impression: 1: No acute fracture. Renal Ultrasound 07/15/25 13:09 Impression: 1: Unremarkable renal ultrasound. No stones, masses or hydronephrosis. Central Venous Line 07/19/25 13:50 IMPRESSION: Fluoroscopy used during portacatheter placement. Scrotum Ultrasound 07/20/25 19:05 IMPRESSION: 1. Diffuse scrotal wall thickening. Consider an infectious/inflammatory process such as cellulitis, lymphedema or systemic causes like cirrhosis, nephrotic syndrome or generalized edema. Soft Tissue Ultrasound 07/20/25 19:10 Impression: 1: Area of superficial venous thrombosis corresponds to the area of left arm swelling. Chest X-Ray 07/22/25 17:19 Impression: 1: Developing left basilar airspace disease, consistent with pneumonia. Venous Doppler Study 08/02/25 07:56 IMPRESSION: 1. Patent right upper extremity veins. No evidence of venous thrombosis. Labs Labs: Laboratory Results - last 24 hr 08/02/25 08/03/25 08/03/25 19:47 05:07 07:48 WBC 10.0 RBC 2.73 L Hgb 8.4 L Hct 28.0 L MCV 102.6 H MCH 30.8 MCHC 30.0 L RDW 15.8 H Plt Count 195 MPV 9.4 Immature Gran % (Auto) 0.6 H Neut % (Auto) 76.6 H Lymph % (Auto) 10.6 L [place] % (Auto) 9.4 H Eos % (Auto) 2.1 Baso % (Auto) 0.7 Lymph # (Auto) 1.05 [place] # (Auto) 0.9 H Eos # (Auto) 0.2 Baso # (Auto) 0.1 Abs Immat Gran (auto) 0.06 H Absolute Neuts (auto) 7.6 H Absolute Nucleated RBC 0.000 Nucleated RBC % 0.0 Sodium 134 L Potassium 4.4 Chloride 98 Carbon Dioxide 34 H Anion Gap 2 L BUN 61 H Creatinine 3.56 H Estim Creat Clear Calc 33 Estimated GFR 17 L Glucose 124 H POC Capillary Glucose 134 H 112 H Calcium 9.5 Phosphorus 4.6 H Total Bilirubin 0.7 AST 57 ALT 42 Alkaline Phosphatase 86 Total Protein 5.3 L Albumin 2.7 L 08/03/25 11:51 WBC RBC Hgb Hct MCV MCH MCHC RDW Plt Count MPV Immature Gran % (Auto) Neut % (Auto) Lymph % (Auto) [place] % (Auto) Eos % (Auto) Baso % (Auto) Lymph # (Auto) [place] # (Auto) Eos # (Auto) Baso # (Auto) Abs Immat Gran (auto) Absolute Neuts (auto) Absolute Nucleated RBC Nucleated RBC % Sodium Potassium Chloride Carbon Dioxide Anion Gap BUN Creatinine Estim Creat Clear Calc Estimated GFR Glucose POC Capillary Glucose 150 H Calcium Phosphorus Total Bilirubin AST ALT Alkaline Phosphatase Total Protein Albumin
--- NOTE | 2025-08-03 17:45 | P.PNINF_ITS ---
Progress Note: A&P Assessment and Plan (1) Leukocytosis: Qualifiers: Leukocytosis type: unspecified Qualified Code(s): D72.829 - Elevated white blood cell count, unspecified Code(s): D72.829 - Elevated white blood cell count, unspecified Status: Acute (2) Cellulitis of scrotum: Code(s): N49.2 - Inflammatory disorders of scrotum Status: Acute (3) Hematoma of right upper extremity: Code(s): S40.021A - Contusion of right upper arm, initial encounter Status: Acute (4) Anemia: Code(s): D64.9 - Anemia, unspecified Status: Acute (5) Rhabdomyolysis: Qualifiers: Rhabdomyolysis type: non-traumatic Qualified Code(s): M62.82 - Rhabdomyolysis Code(s): M62.82 - Rhabdomyolysis Status: Acute (6) Acute kidney injury: Code(s): N17.9 - Acute kidney failure, unspecified Status: Acute (7) Transaminitis: Code(s): R74.01 - Elevation of levels of liver transaminase levels Status: Acute (8) Chronic hyponatremia: Code(s): E87.1 - Hypo-osmolality and hyponatremia Status: Acute (9) Hyperkalemia: Code(s): E87.5 - Hyperkalemia Status: Acute (10) Constipation: Code(s): K59.00 - Constipation, unspecified Status: Acute Plan ASSESSMENT: 1. scrotal cellulitis-- original and repeat cx unrevealing 2. morbid obesity 3. KAITLIN 4. rhabdomyolysis, resolved 5. leukocytosis--multifactorial; WBC overall improved. 6. RUE hematoma. No DVT. For 7. ?pneumonia RECOMMENDATIONS Continue meropenem and daptomycin, day 5. Discontinue antibiotics after today. Now prioritize wound care. Continue miconazole cream to scrotal region for 21 more days. Pt was seen via video telehealth consultation with the assistance of staff, chart, data and patient independently reviewed. Patient was located at [facility] while I was located in my [place] office. Received verbal consent from patient. Subjective Date/time seen: 08/03/25 17:45 Interval history: 08/01/2025: Afebrile and vital signs stable. White blood cell count remains low at 12.1. 07/29 scrotal wound culture remains pending. States he is feeling better. 08/02/2025: Afebrile vital signs stable. White blood cell count has improved further to 10.2. BUN 55 and creatinine 2.93. Venous Doppler study of right upper extremity negative for clots. Repeat scrotal aerobic culture unremarkable; anaerobic pending. States he continues to feel better. 08/03/2025: Afebrile and vital signs stable. Scrotal swelling, erythema has improved over time. Scrotal wound less prominent and without drainage. Scrotal wound culture 07/29: Aerobic finalized as mixed tara with numerous Gram-negative rods. Anaerobic culture Now being reported as positive for Gram-negative rods. Meropenem 500 mg IV Q 24 hours 07/29-- Daptomycin 800 mg IV Q 48 hours 07/29-- Review of Systems Review of Systems: Denies diarrhea and rash. All systems reviewed & are unremarkable except as noted in HPI and below Exam Narrative: Awake and alert. NAD, non-toxic, on room air. Right greater than left extremity edema. Scrotum evaluated. Overall decrease in edema since admission. Also with decreased erythema and improvement in the wound. Wound without drainage. Objective Data Vital Signs Vital Signs: Vital Signs - 24 hr 08/02/25 18:07 08/02/25 19:53 08/02/25 20:00 Temperature 97.8 F Pulse Rate 84 79 37 L Respiratory Rate 20 Blood Pressure 144/49 H Pulse Oximetry 93 Oxygen Delivery Fraction of Inspired Oxygen 08/02/25 20:00 08/03/25 00:00 08/03/25 04:00 Temperature Pulse Rate 70 68 Respiratory Rate Blood Pressure Pulse Oximetry Oxygen Delivery Room Air Fraction of Inspired Oxygen 08/03/25 04:08 08/03/25 08:00 08/03/25 08:20 Temperature 97.3 F L Pulse Rate 72 59 L 71 Respiratory Rate 20 Blood Pressure 107/44 L 127/40 L Pulse Oximetry 93 Oxygen Delivery Fraction of Inspired Oxygen 08/03/25 08:22 08/03/25 08:22 08/03/25 08:25 Temperature Pulse Rate 74 74 Respiratory Rate Blood Pressure Pulse Oximetry Oxygen Delivery Room Air Fraction of Inspired Oxygen 08/03/25 12:00 08/03/25 17:13 Temperature Pulse Rate 73 73 Respiratory Rate Blood Pressure Pulse Oximetry Oxygen Delivery Fraction of Inspired Oxygen Intake/Output Intake/Output: Intake & Output 07/31/25 08/01/25 08/02/25 08/03/25 23:59 23:59 23:59 23:59 Intake Total 950 1220 1420 1440 Output Total 2600 1500 1750 3150 Balance -5268 -237 -167 -3612 Meds/Results Medications: Active Medications Generic Name Dose Route Start Last Admin Trade Name Freq PRN Reason Stop Dose Admin Acetaminophen 1,000 mg 07/16/25 09:58 07/25/25 13:58 Acetaminophen 500 Mg Tablet PO 1,000 mg Q6H PRN Administration Fever Acetaminophen 500 mg 07/19/25 14:13 07/23/25 15:38 Acetaminophen 500 Mg Tablet PO 500 mg Q6H PRN Administration Pain Rated 1-3 Albuterol/Ipratropium 3 ml 07/17/25 20:40 07/20/25 00:58 Ipratropium 0.5 Mg/Albuterol Sulfate 2.5 Mg Ampul.Neb 3 Ml INHALATION 3 ml Q6HRT PRN Administration wheezing Alteplase, Recombinant 2 mg 07/28/25 23:16 07/28/25 23:41 Alteplase 2 Mg Vial (Cathflo) IV PUSH 2 mg ONCE PRN Administration Line Occlusion Amiodarone HCl 200 mg 07/15/25 02:30 08/03/25 08:22 Amiodarone Hcl 200 Mg Tablet PO 200 mg DAILY SALMA Administration Apixaban 2.5 mg 07/26/25 21:00 08/03/25 08:22 Apixaban 2.5 Mg Tablet PO 2.5 mg Q12HR SALMA Administration Bisacodyl 5 mg 07/22/25 13:35 08/03/25 08:22 Bisacodyl 5 Mg Tablet Ec PO 5 mg QAM SALMA Administration Calcium Acetate 2,001 mg 07/24/25 12:00 08/03/25 17:13 Calcium Acetate 667 Mg Tablet PO 2,001 mg TIDWM SALMA Administration Carvedilol 12.5 mg 07/15/25 09:00 08/03/25 17:13 Carvedilol 12.5 Mg Tablet PO 12.5 mg BID SALMA Administration Dextrose 12.5 gm 07/15/25 01:20 Dextrose 50% 25 Gm/50 Ml Syringe IV PUSH PRN PRN Hypoglycemia Protocol Epoetin Sd-epbx 20,000 units 07/25/25 09:00 08/01/25 17:20 Epoetin Sd-Epbx 20,000 Units/Ml Vial IV PUSH 20,000 units MOWEFR@09 SALMA Administration Glucagon 1 mg 07/15/25 01:20 Glucagon For Inj 1 Mg Vial IM PRN PRN Hypoglycemia Protocol Glucose 15 gm 07/15/25 01:20 Glucose Oral Gel 15 Gm Of Glucse In 37.5 Gm Tube PO PRN PRN Hypoglycemia Protocol Dextrose 1,000 mls @ 100 mls/hr 07/15/25 01:20 Dextrose 5% 1,000 Ml IVPB PRN PRN Hypoglycemia Protocol Albumin Human 50 mls @ 999 mls/hr 07/15/25 15:32 Albutein IVPB 08/14/25 15:31 Q10M PRN HYPOTENSION Daptomycin 800 mg/ Sodium 50 mls @ 100 mls/hr 07/29/25 15:00 08/02/25 15:33 Chloride IVPB 08/04/25 23:59 Infused Q48H SALMA Infusion Meropenem 500 mg/ Sodium 100 mls @ 200 mls/hr 07/29/25 14:00 08/03/25 14:49 Chloride IVPB 08/03/25 23:59 Infused Q24H SALMA Infusion Insulin Aspart 3 - 6 units 07/15/25 08:00 08/03/25 17:06 Insulin Aspart (*Bkc) 100 Units/Ml SUB-Q Not Given TIDWM [facility] Protocol Insulin Aspart 1 - 3 units 07/15/25 21:00 08/02/25 21:40 Insulin Aspart (*Bkc) 100 Units/Ml SUB-Q Not Given HS [facility] Protocol Magnesium Hydroxide 30 ml 07/16/25 08:39 Magnesium Hydroxide Susp 30 Ml Udc PO DAILY PRN Constipation Miconazole Nitrate 1 applic 07/26/25 14:00 08/03/25 14:19 Miconazole Nitrate 2% Cream 30 Gm Tube TOPICAL 1 applic Q8HR SALMA Administration Naloxone HCl 0.1 mg 07/19/25 14:13 Naloxone Hcl 0.4 Mg/Ml Vial IV PUSH Q2M PRN Opiate Reversal Oxycodone HCl 2.5 mg 07/19/25 14:13 08/01/25 06:57 Oxycodone Hcl (*Crx) 2.5 Mg Tab Ir PO 2.5 mg Q4H PRN Administration Pain Rated 4-6 Oxycodone HCl 5 mg 07/19/25 14:13 08/03/25 17:13 Oxycodone Hcl (*Crx) 5 Mg Tab Ir PO 5 mg Q4H PRN Administration Pain Rated 7-10 Polyethylene Glycol 17 gm 07/16/25 09:00 08/03/25 08:22 Polyethylene Glycol 3350 17 Gm Powd.Pack PO Not Given QAM SALMA Sodium Chloride 10 ml 07/19/25 22:00 08/03/25 14:19 Central Line Flush IV PUSH 10 ml Q8HR SALMA Administration Sodium Chloride 10 ml 07/19/25 17:03 07/24/25 00:32 Central Line Flush IV PUSH 10 ml PRN PRN Administration with TPN bag changes Sodium Chloride 20 ml 07/19/25 17:03 07/31/25 04:59 Central Line Flush IV PUSH 20 ml PRN PRN Administration after blood draws Radiology Results: ITS Impressions Cervical Spine CT 07/15/25 07:00 IMPRESSION: 1. No acute abnormality of the cervical spine. 2: Severe cervical spondylosis. Head CT 07/15/25 07:03 IMPRESSION: 1. No acute intracranial abnormality. Shoulder X-Ray 07/15/25 07:39 Impression: 1: No acute fracture. Wrist X-Ray 07/15/25 07:40 Impression: 1: No acute fracture. Elbow X-Ray 07/15/25 07:41 Impression: 1: No acute fracture. Renal Ultrasound 07/15/25 13:09 Impression: 1: Unremarkable renal ultrasound. No stones, masses or hydronephrosis. Central Venous Line 07/19/25 13:50 IMPRESSION: Fluoroscopy used during portacatheter placement. Scrotum Ultrasound 07/20/25 19:05 IMPRESSION: 1. Diffuse scrotal wall thickening. Consider an infectious/inflammatory process such as cellulitis, lymphedema or systemic causes like cirrhosis, nephrotic syndrome or generalized edema. Soft Tissue Ultrasound 07/20/25 19:10 Impression: 1: Area of superficial venous thrombosis corresponds to the area of left arm swelling. Chest X-Ray 07/22/25 17:19 Impression: 1: Developing left basilar airspace disease, consistent with pneumonia. Venous Doppler Study 08/02/25 07:56 IMPRESSION: 1. Patent right upper extremity veins. No evidence of venous thrombosis. Labs Labs: Laboratory Results - last 24 hr 08/02/25 08/03/25 08/03/25 19:47 05:07 07:48 WBC 10.0 RBC 2.73 L Hgb 8.4 L Hct 28.0 L MCV 102.6 H MCH 30.8 MCHC 30.0 L RDW 15.8 H Plt Count 195 MPV 9.4 Immature Gran % (Auto) 0.6 H Neut % (Auto) 76.6 H Lymph % (Auto) 10.6 L [place] % (Auto) 9.4 H Eos % (Auto) 2.1 Baso % (Auto) 0.7 Lymph # (Auto) 1.05 [place] # (Auto) 0.9 H Eos # (Auto) 0.2 Baso # (Auto) 0.1 Abs Immat Gran (auto) 0.06 H Absolute Neuts (auto) 7.6 H Absolute Nucleated RBC 0.000 Nucleated RBC % 0.0 Sodium 134 L Potassium 4.4 Chloride 98 Carbon Dioxide 34 H Anion Gap 2 L BUN 61 H Creatinine 3.56 H Estim Creat Clear Calc 33 Estimated GFR 17 L Glucose 124 H POC Capillary Glucose 134 H 112 H Calcium 9.5 Phosphorus 4.6 H Total Bilirubin 0.7 AST 57 ALT 42 Alkaline Phosphatase 86 Total Protein 5.3 L Albumin 2.7 L 08/03/25 08/03/25 11:51 16:49 WBC RBC Hgb Hct MCV MCH MCHC RDW Plt Count MPV Immature Gran % (Auto) Neut % (Auto) Lymph % (Auto) [place] % (Auto) Eos % (Auto) Baso % (Auto) Lymph # (Auto) [place] # (Auto) Eos # (Auto) Baso # (Auto) Abs Immat Gran (auto) Absolute Neuts (auto) Absolute Nucleated RBC Nucleated RBC % Sodium Potassium Chloride Carbon Dioxide Anion Gap BUN Creatinine Estim Creat Clear Calc Estimated GFR Glucose POC Capillary Glucose 150 H 135 H Calcium Phosphorus Total Bilirubin AST ALT Alkaline Phosphatase Total Protein Albumin
[2025-08-04] MEDS: oxyCODONE HCL (*CRX) 2.5 MG TAB IR PO (00:01)
[2025-08-04] MEDS: CENTRAL LINE FLUSH 10 ML IV PUSH (05:00)
[2025-08-04] MEDS: CENTRAL LINE FLUSH 20 ML IV PUSH (05:00)
[2025-08-04] MEDS: MICONAZOLE NITRATE 2% CREAM 30 GM TUBE 1 APPLIC TOPICAL (05:01)
[2025-08-04] MEDS: oxyCODONE HCL (*CRX) 5 MG TAB IR PO ×2 (05:06→09:05)
[2025-08-04 05:10] LABS: Hematocrit 27.1 % (42.0-52.0); Hemoglobin 8.1 g/dL (14.0-18.0); Immature Granulocyte Percent A 0.9 % (0-0.5); Lymphocytes Absolute Auto 1.10 K/mm3 (0.9-3.2); Mean Corpuscular HGB Conc 29.9 g/dl (32-36); Mean Corpuscular Hemoglobin 30.7 pg (26-34); Mean Corpuscular Volume 102.7 fl (80-100); Nucleated Red Blood Cells Absolute Auto 0.000 K/mm3 (0.0-0.012); Nucleated Red Blood Cells Perc 0.0 % (0.0-0.2); Platelet Count Result 184 k/mm3 (150-375); Red Blood Count 2.64 M/mm3 (4.6-6.20); White Blood Count 9.2 K/mm3 (4.5-10.0)
[2025-08-04 05:37] LABS: Anion Gap 2 mmol/L (4-12); Blood Urea Nitrogen 68 mg/dL (9-20); Calcium 9.7 mg/dL (8.4-10.2); Carbon Dioxide 34 mmol/L (22-30); Chloride 99 mmol/L (98-107); Estimated CRCL calculation 33 ml/min; Estimated Glomerular Filt Rate 17; Glucose 112 mg/dL (65-110); Magnesium 2.1 mg/dL (1.6-2.3); Potassium 4.8 mmol/L (3.4-5.0); Sodium 135 mmol/L (137-145)
[2025-08-04 06:00] VITALS: BP 109/45; PULSE 67; RESP 18; TEMP 36.6; O2SAT 91
--- NOTE | 2025-08-04 08:57 | PM.DS ---
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 Status: Acute (3) Type 2 diabetes mellitus with hyperglycemia, without long-term current use of insulin: Code(s): E11.65 - Type 2 diabetes mellitus with hyperglycemia Status: Acute (4) Obesity: Code(s): E66.9 - Obesity, unspecified Status: Acute (5) Transaminitis: Code(s): R74.01 - Elevation of levels of liver transaminase levels Status: Acute (6) Constipation: Code(s): K59.00 - Constipation, unspecified Status: Acute (7) Acute kidney injury: Code(s): N17.9 - Acute kidney failure, unspecified Status: Acute (8) Actinic keratosis: Code(s): L57.0 - Actinic keratosis Status: Acute (9) Cellulitis of scrotum: Code(s): N49.2 - Inflammatory disorders of scrotum Status: Acute DS: Summary Hospital Course Hospital Course: 69-year-old male with PMH morbid obesity with BMI 59, diastolic heart failure, paroxysmal atrial fibrillation on Xarelto, type 2 diabetes without current long-term use of insulin, JOSÉ LUIS, hyperlipidemia, hypertension, actinic keratosis presents to [facility] via EMS on 07/14/2025. The patient was on the ground at home from unknown amount of time due to weakness. Subsequently admitted for acute kidney injury, hyperkalemia, rhabdomyolysis, sepsis, transaminitis. ----- Rhabdomyolysis resolved. Patient had a tunneled dialysis catheter placed and has been undergoing hemodialysis with Nephrology. He does have good urine output and will be discharged with further management under Nephrology, possibility for renal recovery.. Currently has a Correa catheter in place to be taken out when his scrotal wounds are completely resolved and he is moving more. He had generalized edema of all 4 extremities which has improved, right upper extremity more edematous, venous Doppler ultrasound without evidence of DVT. Superficial venous thrombosis of left upper extremity identified on ultrasound 07/20/2025. He was previously on Xarelto for atrial fibrillation, that has been transition to apixaban 2.5 mg p.o. b.i.d. considering the patient's renal failure. Glipizide and metformin will be held on discharge, reassess at a later time the utilization of anti glycemic. Acute renal failure and blood sugars have been controlled. Transaminitis has been resolved, restart pravastatin. Atrial fibrillation: Currently rate controlled, continue amiodarone. Scrotal cellulitis: He has scrotal wounds were purulent, presented with sepsis. He received broad-spectrum antibiotics and anti fungal due to persistent leukocytosis. Seen by Infectious Disease consultants. He received meropenem daptomycin and micafungin, antibiotics and then on 08/04/2025. He will continue miconazole cream to the scrotal region for another 21 days. Blood cultures negative. Continue management for JOSÉ LUIS CPAP and follow-up with pulmonology/PCP. Previous to admission the patient was independent and ambulating. He now has deconditioning and weakness. Seen by PT/OT in on 08/04 is discharged in stable condition to [email or web address] for [facility]. Continue wound care. All of his questions and concerns were answered to satisfaction. The patient was full code. Time Spent with Patient Time attestation: Total time spent providing and/or coordinating discharge services: Time spent: Greater than 30 minutes Exam Const: General: comfortable and no acute distress Other: Obese. A&O x3 HENMT: Mouth: Yes moist mucous membranes Eyes: Pupils: Equal, round and reactive pupils present Neck: Neck: supple Resp: Effort & Inspection: normal respiratory effort Auscultation: clear to auscultation bilaterally Cardio: Rate: regular rate GI: Inspection: non-distended GI Palp: Yes Soft to palpation : Other: Slight erythema, improved. Macerations are dry, no purulence. Skin: Other: Diffuse actinic keratosis Extrem: Other: Generalized edema, all 4 extremities, improved, trace now except for right upper extremity 1+. DS: Data Data Completed and Pending Labs on day of discharge: Labs from last 24 hours 08/04/25 08/04/25 08/03/25 07:54 04:58 19:52 WBC 9.2 RBC 2.64 L Hgb 8.1 L Hct 27.1 L MCV 102.7 H MCH 30.7 MCHC 29.9 L RDW 15.7 H Plt Count 184 MPV 9.5 Immature Gran % (Auto) 0.9 H Neut % (Auto) 73.9 H Lymph % (Auto) 11.9 L [place] % (Auto) 9.5 H Eos % (Auto) 3.0 Baso % (Auto) 0.8 Lymph # (Auto) 1.10 [place] # (Auto) 0.9 H Eos # (Auto) 0.3 Baso # (Auto) 0.1 Abs Immat Gran (auto) 0.08 H Absolute Neuts (auto) 6.8 H Absolute Nucleated RBC 0.000 Nucleated RBC % 0.0 Sodium 135 L Potassium 4.8 Chloride 99 Carbon Dioxide 34 H Anion Gap 2 L BUN 68 H Creatinine 3.57 H Estim Creat Clear Calc 33 Estimated GFR 17 L Glucose 112 H POC Capillary Glucose 109 H 147 H Calcium 9.7 Magnesium 2.1 08/03/25 08/03/25 16:49 11:51 WBC RBC Hgb Hct MCV MCH MCHC RDW Plt Count MPV Immature Gran % (Auto) Neut % (Auto) Lymph % (Auto) [place] % (Auto) Eos % (Auto) Baso % (Auto) Lymph # (Auto) [place] # (Auto) Eos # (Auto) Baso # (Auto) Abs Immat Gran (auto) Absolute Neuts (auto) Absolute Nucleated RBC Nucleated RBC % Sodium Potassium Chloride Carbon Dioxide Anion Gap BUN Creatinine Estim Creat Clear Calc Estimated GFR Glucose POC Capillary Glucose 135 H 150 H Calcium Magnesium Preliminary micro results at discharge 07/29/25 14:00 Anaerobic Culture - Preliminary Scrotum Gram negative bacilli isolated Discharge Plan Discharge Attending physician on discharge: Harika Wilson Consulting providers: Lanie Griffith; Diamante Agee; Alton Fong Discharging Clinician: Harika Wilson Patient Disposition: SNF Activity: march shower Diet: diabetic and renal Patient Instructions: Dialysis Nutrition Plan (DC), Rhabdomyolysis (GEN) Patient Language: Yoruba Stand Alone Forms: General Discharge Information, Jail Discharge Follow-up/Referrals: Juan Pablo Silver MD [Primary Care Provider, [facility]] Discharge Medications: New magnesium hydroxide [Milk of Magnesia] 400 mg/5 mL Suspension 30 ml PO DAILY PRN (Reason: Constipation) Qty: 3000 0RF calcium acetate(phosphat bind) 667 mg Tablet 2,001 mg PO TIDWM Qty: 90 0RF miconazole nitrate 2 % Cream 1 applic topical Q8HR Qty: 42.5 0RF Eliquis 2.5 mg Tablet 2.5 mg PO Q12HR Qty: 30 0RF polyethylene glycol 3350 [Miralax] 17 gram Powder In Packet 17 g PO QAM Qty: 30 0RF bisacodyl [Laxative (bisacodyl)] 5 mg Tablet,Delayed Release (Dr/Ec) 5 mg PO QAM Qty: 30 0RF Retacrit 20,000 unit/mL Solution 20,000 unit IV PUSH MOWEFR@09 Qty: 10 0RF Continued (DME) OneTouch Verio test strips Strip MISCELLANEOUS amiodarone [Pacerone] 200 mg Tablet 200 mg PO Q24H pravastatin 20 mg tablet 20 mg PO DAILY carvedilol 25 mg tablet 12.5 mg PO BID Qty: 30 0RF Held glipizide 10 mg tablet 10 mg PO DAILY Hold Instructions: review sugars, kidney function, and utilization of this medication with [facility] doctor metformin 500 mg tablet 1,000 mg PO BID Hold Instructions: review sugars, kidney function, and utilization of this medication with [facility] doctor Discontinued spironolactone 25 mg tablet 25 mg PO EVERY OTHER DAY Rx Instructions: Due for 25mg on 10/29/22 lisinopril 10 mg tablet 10 mg PO DAILY furosemide 20 mg tablet 20 mg PO DAILY Xarelto 20 mg tablet 20 mg PO HS spironolactone 25 mg tablet 12.5 mg PO EVERY OTHER DAY Rx Instructions: Due for 12.5mg on 10/30/22 Date of admission: 07/15/25 00:00 Primary Care Provider: Juan Pablo Silver Admitting Provider: Mary Lemos Attending physician on admission: Mary Lemos Condition: Stable Hospitalist MIPS Heart Failure (Exclusion) Patient has history of Heart Transplant or Left Ventricular Assistive Device?: No IF YES, STOP HERE Heart Failure (Qualifier) Patient has current or prior documentation of LVEF less than or equal to 40%, or mod/servere depressed LVSF?: No IF NO, STOP HERE
[2025-08-04 09:01] VITALS: PULSE 70
[2025-08-04] MEDS: CALCIUM ACETATE 667 MG TABLET 2001 MG PO ×2 (09:01→11:07)
[2025-08-04] MEDS: APIXABAN 2.5 MG TABLET PO (09:01)
[2025-08-04] MEDS: AMIODARONE HCL 200 MG TABLET PO (09:01)
[2025-08-04] MEDS: BISACODYL 5 MG TABLET EC PO (09:01)
[2025-08-04] MEDS: DAPTOMYCIN IVPB (09:06)
[2025-08-04] MEDS: SODIUM CHLORIDE 0.9% IVPB (09:06)
[2025-08-04] MEDS: NEOMYCIN/POLYMYXIN/BACITRACIN OINTMENT PACKET 1 PACKET (11:08)
--- NOTE | 2025-08-04 11:40 | P.PNINF_ITS ---
Progress Note: A&P Assessment and Plan (1) Leukocytosis: Qualifiers: Leukocytosis type: unspecified Qualified Code(s): D72.829 - Elevated white blood cell count, unspecified Code(s): D72.829 - Elevated white blood cell count, unspecified Status: Acute (2) Cellulitis of scrotum: Code(s): N49.2 - Inflammatory disorders of scrotum Status: Acute (3) Hematoma of right upper extremity: Code(s): S40.021A - Contusion of right upper arm, initial encounter Status: Acute (4) Anemia: Code(s): D64.9 - Anemia, unspecified Status: Acute (5) Rhabdomyolysis: Qualifiers: Rhabdomyolysis type: non-traumatic Qualified Code(s): M62.82 - Rhabdomyolysis Code(s): M62.82 - Rhabdomyolysis Status: Acute (6) Acute kidney injury: Code(s): N17.9 - Acute kidney failure, unspecified Status: Acute (7) Transaminitis: Code(s): R74.01 - Elevation of levels of liver transaminase levels Status: Acute (8) Chronic hyponatremia: Code(s): E87.1 - Hypo-osmolality and hyponatremia Status: Acute (9) Hyperkalemia: Code(s): E87.5 - Hyperkalemia Status: Acute (10) Constipation: Code(s): K59.00 - Constipation, unspecified Status: Acute Plan ASSESSMENT: 1. scrotal cellulitis-- original and repeat cx with delayed growth of Gram- negative rods. 2. morbid obesity 3. [place] 4. rhabdomyolysis, resolved 5. leukocytosis--multifactorial; WBC overall improved. 6. RUE hematoma. No DVT. For 7. ?pneumonia RECOMMENDATIONS meropenem discontinued. Last dose of daptomycin today. May give earlier in the day than scheduled. Now prioritize wound care. Continue miconazole cream to scrotal region for 21 more days. Patient For discharge. Pt was seen via video telehealth consultation with the assistance of staff, chart, data and patient independently reviewed. Patient was located at [facility] while I was located in my [place] office. Received verbal consen t from patient. Subjective Date/time seen: 08/04/25 11:40 Interval history: 08/01/2025: Afebrile and vital signs stable. White blood cell count remains low at 12.1. 07/29 scrotal wound culture remains pending. States he is feeling better. 08/02/2025: Afebrile vital signs stable. White blood cell count has improved further to 10.2. BUN 55 and creatinine 2.93. Venous Doppler study of right upper extremity negative for clots. Repeat scrotal aerobic culture unremarkable; anaerobic pending. States he continues to feel better. 08/03/2025: Afebrile and vital signs stable. Scrotal swelling, erythema has improved over time. Scrotal wound less prominent and without drainage. 08/04/2025: Afebrile and leukocytosis has resolved. Scrotal wound culture 07/29: Aerobic finalized as mixed tara with numerous Gram-negative rods. Anaerobic culture Now being reported as positive for Gram-negative rods. Meropenem 500 mg IV Q 24 hours 07/29-- Daptomycin 800 mg IV Q 48 hours 07/29-- Review of Systems Review of Systems: Denies diarrhea and rash. All systems reviewed & are unremarkable except as noted in HPI and below Exam Narrative: Patient not evaluated today. Pending discharge. Objective Data Vital Signs Vital Signs: Vital Signs - 24 hr 08/03/25 12:00 08/03/25 17:13 08/03/25 21:30 Temperature Pulse Rate 73 73 Respiratory Rate Blood Pressure Pulse Oximetry Oxygen Delivery Room Air 08/03/25 21:30 08/04/25 01:45 08/04/25 06:00 Temperature 98.3 F 97.8 F Pulse Rate 74 67 Respiratory Rate 18 18 Blood Pressure 94/36 L 109/45 L Pulse Oximetry 91 91 Oxygen Delivery Autopap 08/04/25 09:01 08/04/25 09:01 Temperature Pulse Rate 70 70 Respiratory Rate Blood Pressure Pulse Oximetry Oxygen Delivery Intake/Output Intake/Output: Intake & Output 08/01/25 08/02/25 08/03/25 08/04/25 23:59 23:59 23:59 23:59 Intake Total 1220 1420 1560 240 Output Total 1500 1750 3150 1200 Balance -280 -330 -1590 -960 Meds/Results Medications: Active Medications Generic Name Dose Route Start Last Admin Trade Name Freq PRN Reason Stop Dose Admin Acetaminophen 1,000 mg 07/16/25 09:58 07/25/25 13:58 Acetaminophen 500 Mg Tablet PO 1,000 mg Q6H PRN Administration Fever Acetaminophen 500 mg 07/19/25 14:13 07/23/25 15:38 Acetaminophen 500 Mg Tablet PO 500 mg Q6H PRN Administration Pain Rated 1-3 Albuterol/Ipratropium 3 ml 07/17/25 20:40 07/20/25 00:58 Ipratropium 0.5 Mg/Albuterol Sulfate 2.5 Mg Ampul.Neb 3 Ml INHALATION 3 ml Q6HRT PRN Administration wheezing Alteplase, Recombinant 2 mg 07/28/25 23:16 07/28/25 23:41 Alteplase 2 Mg Vial (Cathflo) IV PUSH 2 mg ONCE PRN Administration Line Occlusion Amiodarone HCl 200 mg 07/15/25 02:30 08/04/25 09:01 Amiodarone Hcl 200 Mg Tablet PO 200 mg DAILY SALMA Administration Apixaban 2.5 mg 07/26/25 21:00 08/04/25 09:01 Apixaban 2.5 Mg Tablet PO 2.5 mg Q12HR SALMA Administration Bisacodyl 5 mg 07/22/25 13:35 08/04/25 09:01 Bisacodyl 5 Mg Tablet Ec PO 5 mg QAM SALMA Administration Calcium Acetate 2,001 mg 07/24/25 12:00 08/04/25 11:07 Calcium Acetate 667 Mg Tablet PO 2,001 mg TIDWM SALMA Administration Carvedilol 12.5 mg 07/15/25 09:00 08/04/25 09:01 Carvedilol 12.5 Mg Tablet PO 12.5 mg BID SALMA Administration Dextrose 12.5 gm 07/15/25 01:20 Dextrose 50% 25 Gm/50 Ml Syringe IV PUSH PRN PRN Hypoglycemia Protocol Epoetin Sd-epbx 20,000 units 07/25/25 09:00 08/01/25 17:20 Epoetin Sd-Epbx 20,000 Units/Ml Vial IV PUSH 20,000 units MOWEFR@09 SALMA Administration Glucagon 1 mg 07/15/25 01:20 Glucagon For Inj 1 Mg Vial IM PRN PRN Hypoglycemia Protocol Glucose 15 gm 07/15/25 01:20 Glucose Oral Gel 15 Gm Of Glucse In 37.5 Gm Tube PO PRN PRN Hypoglycemia Protocol Dextrose 1,000 mls @ 100 mls/hr 07/15/25 01:20 Dextrose 5% 1,000 Ml IVPB PRN PRN Hypoglycemia Protocol Albumin Human 50 mls @ 999 mls/hr 07/15/25 15:32 Albutein IVPB 08/14/25 15:31 Q10M PRN HYPOTENSION Daptomycin 800 mg/ Sodium 50 mls @ 100 mls/hr 07/29/25 15:00 08/04/25 09:06 Chloride IVPB 08/04/25 23:59 100 mls/hr Q48H SALMA Administration Insulin Aspart 3 - 6 units 07/15/25 08:00 08/04/25 08:55 Insulin Aspart (*Bkc) 100 Units/Ml SUB-Q Not Given TIDWM SALMA Protocol Insulin Aspart 1 - 3 units 07/15/25 21:00 08/03/25 21:48 Insulin Aspart (*Bkc) 100 Units/Ml SUB-Q Not Given HS SALMA Protocol Magnesium Hydroxide 30 ml 07/16/25 08:39 Magnesium Hydroxide Susp 30 Ml Udc PO DAILY PRN Constipation Miconazole Nitrate 1 applic 07/26/25 14:00 08/04/25 05:01 Miconazole Nitrate 2% Cream 30 Gm Tube TOPICAL 1 applic Q8HR SALMA Administration Naloxone HCl 0.1 mg 07/19/25 14:13 Naloxone Hcl 0.4 Mg/Ml Vial IV PUSH Q2M PRN Opiate Reversal Oxycodone HCl 2.5 mg 07/19/25 14:13 08/04/25 00:01 Oxycodone Hcl (*Crx) 2.5 Mg Tab Ir PO 2.5 mg Q4H PRN Administration Pain Rated 4-6 Oxycodone HCl 5 mg 07/19/25 14:13 08/04/25 09:05 Oxycodone Hcl (*Crx) 5 Mg Tab Ir PO 5 mg Q4H PRN Administration Pain Rated 7-10 Polyethylene Glycol 17 gm 07/16/25 09:00 08/04/25 09:02 Polyethylene Glycol 3350 17 Gm Powd.Pack PO Not Given QAM SALMA Sodium Chloride 10 ml 07/19/25 22:00 08/04/25 05:00 Central Line Flush IV PUSH 10 ml Q8HR SALMA Administration Sodium Chloride 10 ml 07/19/25 17:03 07/24/25 00:32 Central Line Flush IV PUSH 10 ml PRN PRN Administration with TPN bag changes Sodium Chloride 20 ml 07/19/25 17:03 08/04/25 05:00 Central Line Flush IV PUSH 20 ml PRN PRN Administration after blood draws Radiology Results: ITS Impressions Cervical Spine CT 07/15/25 07:00 IMPRESSION: 1. No acute abnormality of the cervical spine. 2: Severe cervical spondylosis. Head CT 07/15/25 07:03 IMPRESSION: 1. No acute intracranial abnormality. Shoulder X-Ray 07/15/25 07:39 Impression: 1: No acute fracture. Wrist X-Ray 07/15/25 07:40 Impression: 1: No acute fracture. Elbow X-Ray 07/15/25 07:41 Impression: 1: No acute fracture. Renal Ultrasound 07/15/25 13:09 Impression: 1: Unremarkable renal ultrasound. No stones, masses or hydronephrosis. Central Venous Line 07/19/25 13:50 IMPRESSION: Fluoroscopy used during portacatheter placement. Scrotum Ultrasound 07/20/25 19:05 IMPRESSION: 1. Diffuse scrotal wall thickening. Consider an infectious/inflammatory process such as cellulitis, lymphedema or systemic causes like cirrhosis, nephrotic syndrome or generalized edema. Soft Tissue Ultrasound 07/20/25 19:10 Impression: 1: Area of superficial venous thrombosis corresponds to the area of left arm swelling. Chest X-Ray 07/22/25 17:19 Impression: 1: Developing left basilar airspace disease, consistent with pneumonia. Venous Doppler Study 08/02/25 07:56 IMPRESSION: 1. Patent right upper extremity veins. No evidence of venous thrombosis. Labs Labs: Laboratory Results - last 24 hr 08/03/25 08/03/25 08/03/25 11:51 16:49 19:52 WBC RBC Hgb Hct MCV MCH MCHC RDW Plt Count MPV Immature Gran % (Auto) Neut % (Auto) Lymph % (Auto) [place] % (Auto) Eos % (Auto) Baso % (Auto) Lymph # (Auto) [place] # (Auto) Eos # (Auto) Baso # (Auto) Abs Immat Gran (auto) Absolute Neuts (auto) Absolute Nucleated RBC Nucleated RBC % Sodium Potassium Chloride Carbon Dioxide Anion Gap BUN Creatinine Estim Creat Clear Calc Estimated GFR Glucose POC Capillary Glucose 150 H 135 H 147 H Calcium Magnesium 08/04/25 08/04/25 04:58 07:54 WBC 9.2 RBC 2.64 L Hgb 8.1 L Hct 27.1 L MCV 102.7 H MCH 30.7 MCHC 29.9 L RDW 15.7 H Plt Count 184 MPV 9.5 Immature Gran % (Auto) 0.9 H Neut % (Auto) 73.9 H Lymph % (Auto) 11.9 L [place] % (Auto) 9.5 H Eos % (Auto) 3.0 Baso % (Auto) 0.8 Lymph # (Auto) 1.10 [place] # (Auto) 0.9 H Eos # (Auto) 0.3 Baso # (Auto) 0.1 Abs Immat Gran (auto) 0.08 H Absolute Neuts (auto) 6.8 H Absolute Nucleated RBC 0.000 Nucleated RBC % 0.0 Sodium 135 L Potassium 4.8 Chloride 99 Carbon Dioxide 34 H Anion Gap 2 L BUN 68 H Creatinine 3.57 H Estim Creat Clear Calc 33 Estimated GFR 17 L Glucose 112 H POC Capillary Glucose 109 H Calcium 9.7 Magnesium 2.1
--- NOTE | 2025-08-04 12:58 | P.PNNP_ITS ---
Progress Note: A&P Assessment and Plan (1) Acute kidney injury: Code(s): N17.9 - Acute kidney failure, unspecified Status: Acute Assessment and Plan: * as noted by admission labs * progressively worsening as noted by trend of labs since hospitalization began * was also complicated by persistent hyperkalemia unresponsive to medical therapy and declining UOP * baseline creatinine normal: * 1.16mg/dL in October 2024 (by outpatient labs from PCP) * 1.30mg/dL in October 2022 ([facility]) * multifactorial etiology: * rhabdomyolysis * LAURY-I use prior to admission * diuretic use (lasix + spironolactone) prior to admission * prerenal factors(?) * infection/early sepsis(?) * other(?) * evaluation to date noted: * prerenal urine electrolytes * urine eosinophils negative * CPK as already noted * mild proteinuria * renal ultrasound without obstruction * s/p tunneled HD catheter placement (on 07/19/25) * making good urine output without diuretic therapy * possible renal recovery??? * dialysis ON HOLD at this time * continue to follow trend of repeal labs and UOP for potential renal recovery (2) Leukocytosis: Qualifiers: Leukocytosis type: unspecified Qualified Code(s): D72.829 - Elevated white blood cell count, unspecified Code(s): D72.829 - Elevated white blood cell count, unspecified Status: Acute Assessment and Plan: * resolved * initial concern was sepsis given associated lactic acidosis, tachycardia, tachypnea on admission * Infectious Disease following with recommendations noted * potential sources noted: * scrotal cellulitis * right arm hematoma * constipation * pneumonia * tinea cruris * elevated CPK * on antibiotics as outlined * cultures negative so far (3) Anemia: Code(s): D64.9 - Anemia, unspecified Status: Acute Assessment and Plan: * due to previous IVF hydration, KAITLIN/ARF, and trauma/hematomas * Epogen with HD * follow trend of of H/H (4) Hyponatremia: Code(s): E87.1 - Hypo-osmolality and hyponatremia Status: Acute Assessment and Plan: * acute (on chronic?) * noted as far back as October 2022 * however, on PCP labs in October 2024, sodium was 138mmol/L * suspect due more related to KAITLIN/ARF and diminished urine output/anuria (dilutional) * TSH and cortisol okay * dialysis helping to correct to some degree (5) Atrial fibrillation and flutter: Code(s): I48.91 - Unspecified atrial fibrillation; I48.92 - Unspecified atrial flutter Status: Chronic Assessment and Plan: * paroxysmal in nature * on amiodarone * on Eliquis (6) Transaminitis: Code(s): R74.01 - Elevation of levels of liver transaminase levels Status: Acute Assessment and Plan: * resolved (7) Hypertension: Code(s): I10 - Essential (primary) hypertension Status: Chronic Assessment and Plan: * reasonable control * follow trend of hemodynamics (8) Diabetes: Code(s): E11.9 - Type 2 diabetes mellitus without complications Status: Chronic Assessment and Plan: * follow accu-cheks * glycemic control per hospitalist Not opposed to discharge from renal perspective if otherwise medically stable; he may or may not need dialysis on discharge but since he is going to a SNF with in-house dialysis, they monitor his kidney function and UOP to assess if further dialysis is needed and monitor for renal recovery. Will continue to follow. L Subjective Date/time seen: 08/04/25 12:58 Interval history: Follow-up for acute kidney injury/acute renal failure requiring [facility]/hemodialysis Continues to do reasonably well at the time of my visit; significant increase in urine output noted with relative stability in renal function/creatinine by AM labs; no apparent distress voiced when seen; received last dose of IV antibiotics earlier today. Exam 2 Narrative: General: elderly but large and WD/WN male in NAD Heart: normal S1 and S2; no rub Lungs: clear anteriorly Abdomen: soft, nontender, nondistended, positive bowel sounds Extremities: no cyanosis or clubbing; trace edema (upper and lower extremities) Skin: venous stasis changes over BLEs; chronic actinic changes in UEs as well Objective Data Vital Signs Vital Signs: Vital Signs Temp Pulse Resp BP Pulse Ox O2 Del Method 08/04/25 09:01 70 08/04/25 09:01 70 08/04/25 06:00 97.8 F 67 18 109/45 L 91 08/04/25 01:45 Autopap 08/03/25 21:30 98.3 F 74 18 94/36 L 91 08/03/25 21:30 Room Air 08/03/25 17:13 73 Intake/Output Intake/Output: Intake & Output 08/01/25 08/02/25 08/03/25 08/04/25 23:59 23:59 23:59 23:59 Intake Total 1220 1420 1560 480 Output Total 1500 1750 3150 1200 Balance -280 -330 -1590 -720 Meds/Results Medications: Active Medications Generic Name Dose Route Start Last Admin Trade Name Freq PRN Reason Stop Dose Admin Acetaminophen 1,000 mg 07/16/25 09:58 07/25/25 13:58 Acetaminophen 500 Mg Tablet PO 1,000 mg Q6H PRN Administration Fever Acetaminophen 500 mg 07/19/25 14:13 07/23/25 15:38 Acetaminophen 500 Mg Tablet PO 500 mg Q6H PRN Administration Pain Rated 1-3 Albuterol/Ipratropium 3 ml 07/17/25 20:40 07/20/25 00:58 Ipratropium 0.5 Mg/Albuterol Sulfate 2.5 Mg Ampul.Neb 3 Ml INHALATION 3 ml Q6HRT PRN Administration wheezing Alteplase, Recombinant 2 mg 07/28/25 23:16 07/28/25 23:41 Alteplase 2 Mg Vial (Cathflo) IV PUSH 2 mg ONCE PRN Administration Line Occlusion Amiodarone HCl 200 mg 07/15/25 02:30 08/03/25 08:22 Amiodarone Hcl 200 Mg Tablet PO 200 mg DAILY SALMA Administration Apixaban 2.5 mg 07/26/25 21:00 08/03/25 21:36 Apixaban 2.5 Mg Tablet PO 2.5 mg Q12HR SALMA Administration Bisacodyl 5 mg 07/22/25 13:35 08/03/25 08:22 Bisacodyl 5 Mg Tablet Ec PO 5 mg QAM SALMA Administration Calcium Acetate 2,001 mg 07/24/25 12:00 08/03/25 17:13 Calcium Acetate 667 Mg Tablet PO 2,001 mg TIDWM SALMA Administration Carvedilol 12.5 mg 07/15/25 09:00 08/03/25 17:13 Carvedilol 12.5 Mg Tablet PO 12.5 mg BID SALMA Administration Dextrose 12.5 gm 07/15/25 01:20 Dextrose 50% 25 Gm/50 Ml Syringe IV PUSH PRN PRN Hypoglycemia Protocol Epoetin Sd-epbx 20,000 units 07/25/25 09:00 08/01/25 17:20 Epoetin Sd-Epbx 20,000 Units/Ml Vial IV PUSH 20,000 units MOWEFR@09 SALMA Administration Glucagon 1 mg 07/15/25 01:20 Glucagon For Inj 1 Mg Vial IM PRN PRN Hypoglycemia Protocol Glucose 15 gm 07/15/25 01:20 Glucose Oral Gel 15 Gm Of Glucse In 37.5 Gm Tube PO PRN PRN Hypoglycemia Protocol Dextrose 1,000 mls @ 100 mls/hr 07/15/25 01:20 Dextrose 5% 1,000 Ml IVPB PRN PRN Hypoglycemia Protocol Albumin Human 50 mls @ 999 mls/hr 07/15/25 15:32 Albutein IVPB 08/14/25 15:31 Q10M PRN HYPOTENSION Daptomycin 800 mg/ Sodium 50 mls @ 100 mls/hr 07/29/25 15:00 08/02/25 15:33 Chloride IVPB 08/04/25 23:59 Infused Q48H SALMA Infusion Insulin Aspart 3 - 6 units 07/15/25 08:00 08/03/25 17:06 Insulin Aspart (*Bkc) 100 Units/Ml SUB-Q Not Given TIDWM [facility] Protocol Insulin Aspart 1 - 3 units 07/15/25 21:00 08/03/25 21:48 Insulin Aspart (*Bkc) 100 Units/Ml SUB-Q Not Given HS [facility] Protocol Magnesium Hydroxide 30 ml 07/16/25 08:39 Magnesium Hydroxide Susp 30 Ml Udc PO DAILY PRN Constipation Miconazole Nitrate 1 applic 07/26/25 14:00 08/03/25 21:39 Miconazole Nitrate 2% Cream 30 Gm Tube TOPICAL 1 applic Q8HR SALMA Administration Naloxone HCl 0.1 mg 07/19/25 14:13 Naloxone Hcl 0.4 Mg/Ml Vial IV PUSH Q2M PRN Opiate Reversal Oxycodone HCl 2.5 mg 07/19/25 14:13 08/04/25 00:01 Oxycodone Hcl (*Crx) 2.5 Mg Tab Ir PO 2.5 mg Q4H PRN Administration Pain Rated 4-6 Oxycodone HCl 5 mg 07/19/25 14:13 08/03/25 21:36 Oxycodone Hcl (*Crx) 5 Mg Tab Ir PO 5 mg Q4H PRN Administration Pain Rated 7-10 Polyethylene Glycol 17 gm 07/16/25 09:00 08/03/25 08:22 Polyethylene Glycol 3350 17 Gm Powd.Pack PO Not Given QAM SALMA Sodium Chloride 10 ml 07/19/25 22:00 08/03/25 21:37 Central Line Flush IV PUSH 10 ml Q8HR SALMA Administration Sodium Chloride 10 ml 07/19/25 17:03 07/24/25 00:32 Central Line Flush IV PUSH 10 ml PRN PRN Administration with TPN bag changes Sodium Chloride 20 ml 07/19/25 17:03 07/31/25 04:59 Central Line Flush IV PUSH 20 ml PRN PRN Administration after blood draws Radiology Results: ITS Impressions Cervical Spine CT 07/15/25 07:00 IMPRESSION: 1. No acute abnormality of the cervical spine. 2: Severe cervical spondylosis. Head CT 07/15/25 07:03 IMPRESSION: 1. No acute intracranial abnormality. Shoulder X-Ray 07/15/25 07:39 Impression: 1: No acute fracture. Wrist X-Ray 07/15/25 07:40 Impression: 1: No acute fracture. Elbow X-Ray 07/15/25 07:41 Impression: 1: No acute fracture. Renal Ultrasound 07/15/25 13:09 Impression: 1: Unremarkable renal ultrasound. No stones, masses or hydronephrosis. Central Venous Line 07/19/25 13:50 IMPRESSION: Fluoroscopy used during portacatheter placement. Scrotum Ultrasound 07/20/25 19:05 IMPRESSION: 1. Diffuse scrotal wall thickening. Consider an infectious/inflammatory process such as cellulitis, lymphedema or systemic causes like cirrhosis, nephrotic syndrome or generalized edema. Soft Tissue Ultrasound 07/20/25 19:10 Impression: 1: Area of superficial venous thrombosis corresponds to the area of left arm swelling. Chest X-Ray 07/22/25 17:19 Impression: 1: Developing left basilar airspace disease, consistent with pneumonia. Venous Doppler Study 08/02/25 07:56 IMPRESSION: 1. Patent right upper extremity veins. No evidence of venous thrombosis. Labs Labs: Laboratory Tests 08/04/25 04:58 08/04/25 04:58 Calcium 9.7 Magnesium 2.1 Microbiology 07/29/25 14:00 Scrotum Anaerobic Culture - Preliminary Gram negative bacilli isolated 07/29/25 14:00 Scrotum Aerobic Culture - Final
== END 2025-08-04 14:00 | DRG 872 ==
LOC: ANHED 23:13 → ANHIMU 07-15 00:40 → ANH2MED 07-24 12:37
PROVIDERS: Internal Medicine; Internal Medicine Infectious Disease; Internal Medicine Nephrology; Nurse Practitioner Adult Health; Surgery; Admitting Provider Internal Medicine; Emergency Provider Emergency Medicine; PCP Family Medicine; Visit Provider General Practice
PROC: 02HV33Z Insertion of Infusion Device into Superior Vena Cava, Percutaneous Approach (ICD-10-PCS; principal; 2025-07-15 15:00)
PROC: 0JH63XZ Insertion of Tunneled Vascular Access Device into Chest Subcutaneous Tissue and Fascia, Percutaneous Approach (ICD-10-PCS; CPT 36908; principal; 2025-07-19 16:45)
DX: A41.9 Sepsis, unspecified organism (principal); M62.82 Rhabdomyolysis; N17.9 Acute kidney failure, unspecified; Z68.43 Body mass index [BMI] 50.0-59.9, adult; I50.32 Chronic diastolic (congestive) heart failure; E87.1 Hypo-osmolality and hyponatremia; I42.8 Other cardiomyopathies; E87.21 Acute metabolic acidosis; I48.92 Unspecified atrial flutter; I82.612 Acute embolism and thrombosis of superficial veins of left upper extremity; R65.20 Severe sepsis without septic shock; N49.2 Inflammatory disorders of scrotum; E11.42 Type 2 diabetes mellitus with diabetic polyneuropathy; E11.65 Type 2 diabetes mellitus with hyperglycemia; D64.9 Anemia, unspecified; E87.5 Hyperkalemia; L89.310 Pressure ulcer of right buttock, unstageable; E78.5 Hyperlipidemia, unspecified; S40.021A Contusion of right upper arm, initial encounter; I48.0 Paroxysmal atrial fibrillation; E66.01 Morbid (severe) obesity due to excess calories; G47.33 Obstructive sleep apnea (adult) (pediatric); K59.00 Constipation, unspecified; T46.4X5A Adverse effect of angiotensin-converting-enzyme inhibitors, initial encounter; X58.XXXA Exposure to other specified factors, initial encounter; Z96.643 Presence of artificial hip joint, bilateral; Z79.01 Long term (current) use of anticoagulants; Z87.891 Personal history of nicotine dependence; Z99.2 Dependence on renal dialysis
CPT/HCPCS: 36415; 36569; 70450; 71045; 72125; 73030; 73070; 73100; 76770; 76870; 76882; 77001; 80048; 80053; 80069; 80076; 80202; 80307; 81001; 82077; 82533; 82550; 82570; 82607; 82728; 82746; 82803; 82948; 83036; 83540; 83550; 83605; 83690; 83735; 83880; 84100; 84156; 84300; 84443; 84484; 84540; 85014; 85018; 85025; 85046; 85610; 85730; 85999; 86704; 86706; 86850; 86900; 86901; 87040; 87070; 87075; 87205; 87340; 87637; 87641; 93005; 93971; 93976; 94640; 94660; 96361; 96365; 96366; 96367; 97110; 97162; 97164; 97166; 97168; 97530; 97535; 99285; A9270; C1750; C1751; C1752; G0257; J0612; J0690; J0692; J0696; J0878; J1644; J1815; J1939; J2003; J2004; J2185; J2248; J2543; J2704; J2997; J3373; J7030; J7040; J7050; J7120; P9047; Q5105